=== PATIENT | male | born 1945 | race Caucasian/White ===

== ENCOUNTER 2022-01-19 06:04 | Emergency (ER) | payer MEDICARE, SELFPAY ==
[2022-01-19 06:31] VITALS: BP 126/74; PULSE 70; O2SAT 98
[2022-01-19 06:48] VITALS: BP 120/81; PULSE 74; RESP 16; TEMP 37.2; O2SAT 97; BMI 18.0
--- NOTE | 2022-01-19 07:29 | ED.MALEGU ---
HPI - Male Genitourinary General Chief complaint: Urogenital-Male Stated complaint: blood in urine for 4 days Time Seen by Provider: 01/19/22 07:05 Source: patient Mode of arrival: ambulatory Limitations: other (Baseline dementia) History of Present Illness HPI Narrative: 76-year-old male presents to the emergency department with 4 days of hematuria on arrival patient has no new complaints patient denies fevers chills cough shortness of breath denies nausea vomiting diarrhea. Apparently patient is at his baseline per the care home he comes from. MD Complaint: other Related Data Allergies Allergy/AdvReac Type Severity Reaction Status Date / Time No Known Allergies Allergy Verified 01/19/22 06:22 Review of Systems Review of Systems: Review of systems: General: Patient denies any fever chills recent illness or falls Musculoskeletal: Denies back pain or body aches or other injuries HEENT: denies headache, runny nose, ear pain Respiratory: denies shortness of breath, cough Cardiovascular: no chest pain or palpitations : Painless hematuria denies dysuria, frequency Abdomen: no nausea vomiting denies abdominal pain Extremities: no swelling, no pain Skin: no diaphoresis Yes all other systems are reviewed and are negative PMFSH Past Medical History Attestation statement: The following information was validated with the patient. Social History Social History Advance Directives: No Advance Directives Information Provided: No Physical Exam Vital Signs: Vital Signs: Last Vital Signs Temp 98.9 F 01/19/22 06:48 Pulse 74 01/19/22 06:48 Resp 16 01/19/22 06:48 BP 120/81 01/19/22 06:48 Pulse Ox 97 01/19/22 06:48 O2 Del Method 01/19/22 06:48 BMI result Body Mass Index 18.0 General: Well-appearing well-nourished in no signs of distress HEENT: Normocephalic atraumatic Neck: No signs of JVD, no masses no tenderness or lymphadenopathy Cardiovascular: Regular rate and rhythm Respiratory: Clear to auscultation bilaterally Abdomen: Soft nontender no masses rectal exam performed guiac negative clinical quality rn confirmed. Extremities: Normal pedal pulses no signs of edema Skin: Dry warm no rashes Back: No tenderness full ROM MDM - Male Genitourinary MDM Narrative Medical decision making narrative: Patient with painless hematuria I will send urinalysis likely have patient follow-up with urology. Lab Data Labs: Lab Results 01/19/22 Range/Units 10:09 Urine Color YELLOW Urine Appearance CLOUDY Urine pH 5.5 (5.0-8.0) Ur Specific [place] >= 1.030 H (1.005-1.025) Urine Protein 2+ H (NEG-TRACE) MG/DL Urine Glucose (UA) NEG (NEG) MG/DL Urine Ketones 40 (NEG) MG/DL Urine Blood 3+ H (NEG) Urine Nitrite NEG (NEG) Ur Leukocyte Esterase 2+ H (NEG) Urine RBC 76-150 H (0) /HPF Urine WBC 50-75 H (0-4) /HPF Ur Squamous Epith Cells NONE /LPF Urine Bacteria 1+ /LPF Discharge Plan Discharge Clinical Impression: Hematuria Patient Disposition: Home, Self-Care Instructions: Hematuria (ED) Additional Instructions: Please call to follow up for your hematuria. If you have any other concerns please return to the ED. Referrals: Benjamín Bhardwaj MD [Physician] -
--- NOTE | 2022-01-19 10:14 | PC.NURSE ---
pt's brother scarlet ([phone]) [place] [facility] [place], pt is aware. pt brother states that pt has had his ornelas cath in for 2 months, has an enlarged prostate and high psa. aware.
[2022-01-19 10:25] LABS: Appearance Urine CLOUDY; Color Urine YELLOW; Glucose Urine UA NEG (NEG); Leukocyte Esterase Urine 2+ (NEG); Nitrite Urine NEG (NEG); PH 5.5 (5.0-8.0); Specific Gravity - Urine >= 1.030 (1.005-1.025); UACC Culture Trigger YES; Urine Blood 3+ (NEG); Urine Ketones 40 MG/DL (NEG); Urine Protein 2+ MG/DL (NEG-TRACE)
[2022-01-19 10:31] LABS: Bacteria Urine 1+ /LPF; WBC Urine 50-75 /HPF (0-4)
[2022-01-19 10:45] VITALS: BP 130/75; PULSE 64; RESP 16; TEMP 37; O2SAT 99
--- NOTE | 2022-01-19 10:50 | PC.NURSE ---
patient a/o x3 . lungs celarv . skin pink warm and dry . heart rate regular at 65 beats per minute . skin pink warm and dry . abdomen soft . non tender . positive bowel sounds in all four quadrants . catheter patent , dark yellow urine with no evidence of hematuria noted by this RN . patient reports 0/10 pain . bed at lowest level . patient aware of plan of care .
--- NOTE | 2022-01-19 10:50 | PC.NURSE ---
PT'S COURT APPOINTED GUARDIAN CALLED ( MARILEE CUCA, ) AND SHE WAS UPDATED ON PT STATUS.
[2022-01-19] MEDS: cephALEXin 500 MG CAPSULE PO (10:57)
--- NOTE | 2022-01-19 13:31 | PC.NURSE ---
rn to rn report given to jarocho at [facility]. pt d/c via ambulance.
== END 2022-01-19 13:15 | disposition home or self-care (01) ==
PROVIDERS: Emergency Provider Student in an Organized Health Care Education/Training Program; PCP Family Medicine
DX: N30.01 Acute cystitis with hematuria (principal); B95.2 Enterococcus as the cause of diseases classified elsewhere; Z79.899 Other long term (current) drug therapy
CPT/HCPCS: 81001; 87086; 87088; 87186; 99283; 99284

== ENCOUNTER 2022-04-13 06:39 | Outpatient (REF) | payer SELFPAY ==
[2022-04-13 07:02] LABS: Hematocrit 34.8 % (42.0-52.0); Hemoglobin 11.4 g/dl (14.0-18.0); Mean Corpuscular HGB Conc 32.8 g/dl (31.0-36.0); Mean Corpuscular Hemoglobin 29.4 pg (27.0-33.0); Mean Corpuscular Volume 89.7 fL (80.0-98.0); Platelet Count 331 X10*3/uL (160-400); Red Blood Count 3.88 X10*6/uL (4.60-5.80); Red Cell Distribution Width 12.2 % (11.0-16.0); White Blood Count 8.6 X10*3/uL (4.8-10.8)
[2022-04-13 07:06] LABS: Alanine Aminotransferase 16 U/L (0-40); Albumin Level 3.7 g/dL (3.5-5.0); Alkaline Phosphatase 87 U/L (39-117); Anion Gap 17 (12-20); Aspartate Amino Transferase 11 U/L (5-37); Bilirubin Total 0.6 mg/dL (0.0-1.0); Blood Urea Nitrogen 19 mg/dL (9-16); Calcium 8.9 mg/dL (8.4-10.2); Carbon Dioxide 25 mmol/L (22-29); Chloride 104 mmol/L (96-108); Estimated Glomerular Filt Rate > 60; Glucose Random 96 mg/dL (60-115); Potassium 4.1 mmol/L (3.3-5.1); Sodium 142 mmol/L (135-145); Total Protein 6.3 g/dL (6.5-8.0)
== END 2022-04-13 06:40 | disposition home or self-care (01) ==
LOC: HO.MMNH3L 06:39
PROVIDERS: Visit Provider Family Medicine
DX: I48.91 Unspecified atrial fibrillation (principal); N40.1 Benign prostatic hyperplasia with lower urinary tract symptoms; K21.9 Gastro-esophageal reflux disease without esophagitis
CPT/HCPCS: 36415; 80053; 85027

== ENCOUNTER 2022-04-18 07:27 | Outpatient (REF) | payer MEDICARE, SELFPAY ==
[2022-04-18 08:05] LABS: Appearance Urine Cloudy; Color Urine Yellow; Glucose Urine UA Negative (Negative); Leukocyte Esterase Urine Large (3+) (Negative); Nitrite Urine Negative (Negative); Specific Gravity - Urine 1.015 (1.005-1.025); UMIC TRIGGER UA YES; Urine Blood Moderate (2+) (Negative); Urine Ketones 15 mg/dL (Negative); Urine Protein 100 (2+) mg/dL (Neg-Trace)
[2022-04-18 08:09] LABS: Bacteria Urine 1+ (None Seen); Hyaline Casts Urine 0-2 /LPF (0-2); RBC Urine >20 /HPF (0-2); Squamous Epithelial Cell Urine 0-2 /HPF (0-2); WBC Urine >50 /HPF (0-5)
== END 2022-04-18 07:28 | disposition home or self-care (01) ==
LOC: HO.LNP 07:27
PROVIDERS: Visit Provider Family Medicine
DX: I48.91 Unspecified atrial fibrillation (principal); N40.1 Benign prostatic hyperplasia with lower urinary tract symptoms; N39.0 Urinary tract infection, site not specified
CPT/HCPCS: 81001; 81003; 87086

== ENCOUNTER 2022-04-20 06:30 | Outpatient (REF) | payer MEDICARE, SELFPAY ==
[2022-04-20 06:51] LABS: Hematocrit 33.1 % (42.0-52.0); Hemoglobin 11.1 g/dl (14.0-18.0); Mean Corpuscular HGB Conc 33.5 g/dl (31.0-36.0); Mean Corpuscular Hemoglobin 29.4 pg (27.0-33.0); Mean Corpuscular Volume 87.6 fL (80.0-98.0); Mean Platelet Volume 10.3 fL (9.4-12.4); Platelet Count 388 X10*3/uL (160-400); Red Blood Count 3.78 X10*6/uL (4.60-5.80); Red Cell Distribution Width 12.3 % (11.0-16.0); White Blood Count 8.5 X10*3/uL (4.8-10.8)
[2022-04-20 07:20] LABS: Alanine Aminotransferase 9 U/L (0-40); Albumin Level 3.6 g/dL (3.5-5.0); Alkaline Phosphatase 71 U/L (39-117); Anion Gap 18 (12-20); Aspartate Amino Transferase 9 U/L (5-37); Bilirubin Total 0.6 mg/dL (0.0-1.0); Blood Urea Nitrogen 23 mg/dL (9-16); Carbon Dioxide 26 mmol/L (22-29); Chloride 100 mmol/L (96-108); Estimated Glomerular Filt Rate 59; Glucose Random 120 mg/dL (60-115); Potassium 4.1 mmol/L (3.3-5.1); Sodium 140 mmol/L (135-145); Total Protein 6.2 g/dL (6.5-8.0)
== END 2022-04-20 06:31 | disposition home or self-care (01) ==
LOC: HO.MMNH3L 06:30
PROVIDERS: Visit Provider Family Medicine
DX: I48.91 Unspecified atrial fibrillation (principal); N40.1 Benign prostatic hyperplasia with lower urinary tract symptoms; K21.9 Gastro-esophageal reflux disease without esophagitis
CPT/HCPCS: 36415; 80053; 85027; 87040

== ENCOUNTER 2022-04-27 06:56 | Outpatient (REF) | payer MEDICARE, SELFPAY ==
[2022-04-27 07:34] LABS: Hematocrit 34.9 % (42.0-52.0); Hemoglobin 11.2 g/dl (14.0-18.0); Mean Corpuscular HGB Conc 32.1 g/dl (31.0-36.0); Mean Corpuscular Hemoglobin 28.5 pg (27.0-33.0); Mean Corpuscular Volume 88.8 fL (80.0-98.0); Mean Platelet Volume 9.6 fL (9.4-12.4); Platelet Count 456 X10*3/uL (160-400); Red Blood Count 3.93 X10*6/uL (4.60-5.80); Red Cell Distribution Width 12.6 % (11.0-16.0)
[2022-04-27 07:50] LABS: Alanine Aminotransferase 9 U/L (0-40); Albumin Level 3.5 g/dL (3.5-5.0); Alkaline Phosphatase 72 U/L (39-117); Anion Gap 16 (12-20); Aspartate Amino Transferase 10 U/L (5-37); Bilirubin Total 0.3 mg/dL (0.0-1.0); Blood Urea Nitrogen 20 mg/dL (9-16); Calcium 9.1 mg/dL (8.4-10.2); Carbon Dioxide 26 mmol/L (22-29); Chloride 106 mmol/L (96-108); Estimated Glomerular Filt Rate 52; Glucose Random 91 mg/dL (60-115); Sodium 144 mmol/L (135-145); Total Protein 6.1 g/dL (6.5-8.0)
== END 2022-04-27 06:57 | disposition home or self-care (01) ==
LOC: HO.MMNH3L 06:56
PROVIDERS: Visit Provider Family Medicine
DX: I48.91 Unspecified atrial fibrillation (principal); N40.1 Benign prostatic hyperplasia with lower urinary tract symptoms; K21.9 Gastro-esophageal reflux disease without esophagitis
CPT/HCPCS: 36415; 80053; 85027

== ENCOUNTER 2022-05-04 06:22 | Outpatient (REF) | payer MEDICARE, SELFPAY ==
[2022-05-04 06:33] LABS: MANUAL DIFF FLAG NO
[2022-05-04 06:51] LABS: Basophils Absolute Auto 0.1 X10*3/uL (0.0-0.2); Eosinophils Absolute Auto 0.5 X10*3/uL (0.0-0.4); Eosinophils Percent Auto 6.6 % (0-4); Hematocrit 32.7 % (42.0-52.0); Hemoglobin 10.5 g/dl (14.0-18.0); Imm Gran Abs Auto 0.03 X10*3/uL (0.00-0.03); Imm Gran Pct Auto 0.4 % (0.0-0.4); Lymphocytes Absolute Auto 1.8 X10*3/uL (1.2-4.9); Lymphocytes Percent Auto 25.5 % (20-40); Mean Corpuscular HGB Conc 32.1 g/dl (31.0-36.0); Mean Corpuscular Hemoglobin 29.1 pg (27.0-33.0); Mean Corpuscular Volume 90.6 fL (80.0-98.0); Mean Platelet Volume 10.3 fL (9.4-12.4); Monocytes Absolute Auto 0.6 X10*3/uL (0.1-1.2); Monocytes Percent Auto 7.7 % (2-11); Neutrophils Absolute Auto 4.2 x10*3/uL (2.0-8.3); Neutrophils Percent Auto 58.8 % (45-73); Platelet Count 325 X10*3/uL (160-400); Red Blood Count 3.61 X10*6/uL (4.60-5.80); Red Cell Distribution Width 12.6 % (11.0-16.0); White Blood Count 7.2 X10*3/uL (4.8-10.8)
[2022-05-04 07:22] LABS: Alanine Aminotransferase 10 U/L (0-40); Albumin Level 3.2 g/dL (3.5-5.0); Alkaline Phosphatase 63 U/L (39-117); Anion Gap 15 (12-20); Aspartate Amino Transferase 10 U/L (5-37); Bilirubin Total 0.2 mg/dL (0.0-1.0); Blood Urea Nitrogen 22 mg/dL (9-16); Calcium 8.6 mg/dL (8.4-10.2); Carbon Dioxide 22 mmol/L (22-29); Chloride 109 mmol/L (96-108); Estimated Glomerular Filt Rate > 60; Glucose Random 85 mg/dL (60-115); Potassium 4.3 mmol/L (3.3-5.1); Sodium 142 mmol/L (135-145); Total Protein 5.6 g/dL (6.5-8.0)
== END 2022-05-04 06:23 | disposition home or self-care (01) ==
LOC: HO.MMNH3L 06:22
PROVIDERS: Visit Provider Family Medicine
DX: I48.91 Unspecified atrial fibrillation (principal); N40.1 Benign prostatic hyperplasia with lower urinary tract symptoms; K21.9 Gastro-esophageal reflux disease without esophagitis
CPT/HCPCS: 36415; 80053; 85025

== ENCOUNTER 2022-05-11 05:43 | Outpatient (REF) | payer MEDICARE, SELFPAY ==
[2022-05-11 05:48] LABS: MANUAL DIFF FLAG NO
[2022-05-11 06:24] LABS: Basophils Absolute Auto 0.1 X10*3/uL (0.0-0.2); Basophils Percent Auto 0.8 % (0-2); Eosinophils Absolute Auto 0.5 X10*3/uL (0.0-0.4); Eosinophils Percent Auto 6.5 % (0-4); Hematocrit 33.2 % (42.0-52.0); Hemoglobin 10.7 g/dl (14.0-18.0); Imm Gran Abs Auto 0.03 X10*3/uL (0.00-0.03); Imm Gran Pct Auto 0.4 % (0.0-0.4); Lymphocytes Percent Auto 26.7 % (20-40); Mean Corpuscular HGB Conc 32.2 g/dl (31.0-36.0); Mean Platelet Volume 10.1 fL (9.4-12.4); Monocytes Absolute Auto 0.6 X10*3/uL (0.1-1.2); Monocytes Percent Auto 7.7 % (2-11); Neutrophils Absolute Auto 4.4 x10*3/uL (2.0-8.3); Neutrophils Percent Auto 57.9 % (45-73); Platelet Count 280 X10*3/uL (160-400); Red Blood Count 3.69 X10*6/uL (4.60-5.80); White Blood Count 7.7 X10*3/uL (4.8-10.8)
[2022-05-11 06:48] LABS: Anion Gap 16 (12-20); Blood Urea Nitrogen 21 mg/dL (9-16); Calcium 8.7 mg/dL (8.4-10.2); Carbon Dioxide 25 mmol/L (22-29); Chloride 106 mmol/L (96-108); Estimated Glomerular Filt Rate 56; Glucose Random 86 mg/dL (60-115); Potassium 3.9 mmol/L (3.3-5.1); Sodium 143 mmol/L (135-145)
== END 2022-05-11 05:44 | disposition home or self-care (01) ==
LOC: HO.MMNH3L 05:43
PROVIDERS: Visit Provider Family Medicine
DX: I48.91 Unspecified atrial fibrillation (principal); N40.1 Benign prostatic hyperplasia with lower urinary tract symptoms; K21.9 Gastro-esophageal reflux disease without esophagitis
CPT/HCPCS: 36415; 80048; 85025

== ENCOUNTER 2022-05-18 06:31 | Outpatient (REF) | payer MEDICARE, SELFPAY ==
[2022-05-18 06:56] LABS: Hematocrit 33.2 % (42.0-52.0); Hemoglobin 10.5 g/dl (14.0-18.0); Mean Corpuscular HGB Conc 31.6 g/dl (31.0-36.0); Mean Corpuscular Hemoglobin 28.5 pg (27.0-33.0); Platelet Count 267 X10*3/uL (160-400); Red Blood Count 3.69 X10*6/uL (4.60-5.80); Red Cell Distribution Width 13.1 % (11.0-16.0); White Blood Count 6.5 X10*3/uL (4.8-10.8)
[2022-05-18 07:35] LABS: Alanine Aminotransferase 9 U/L (0-40); Albumin Level 3.4 g/dL (3.5-5.0); Alkaline Phosphatase 64 U/L (39-117); Anion Gap 15 (12-20); Aspartate Amino Transferase 9 U/L (5-37); Bilirubin Total 0.3 mg/dL (0.0-1.0); Blood Urea Nitrogen 19 mg/dL (9-16); Calcium 8.6 mg/dL (8.4-10.2); Carbon Dioxide 24 mmol/L (22-29); Chloride 107 mmol/L (96-108); Estimated Glomerular Filt Rate > 60; Glucose Random 82 mg/dL (60-115); Potassium 4.1 mmol/L (3.3-5.1); Sodium 142 mmol/L (135-145); Total Protein 5.7 g/dL (6.5-8.0)
== END 2022-05-18 06:32 | disposition home or self-care (01) ==
LOC: HO.MMNH3L 06:31
PROVIDERS: Visit Provider Family Medicine
DX: I48.91 Unspecified atrial fibrillation (principal); N40.1 Benign prostatic hyperplasia with lower urinary tract symptoms; K21.9 Gastro-esophageal reflux disease without esophagitis
CPT/HCPCS: 36415; 80053; 85027

== ENCOUNTER 2022-05-25 06:16 | Outpatient (REF) | payer MEDICARE, SELFPAY ==
[2022-05-25 06:28] LABS: Hematocrit 35.6 % (42.0-52.0); Hemoglobin 11.3 g/dl (14.0-18.0); Mean Corpuscular HGB Conc 31.7 g/dl (31.0-36.0); Mean Corpuscular Hemoglobin 28.4 pg (27.0-33.0); Mean Corpuscular Volume 89.4 fL (80.0-98.0); Mean Platelet Volume 9.7 fL (9.4-12.4); Platelet Count 309 X10*3/uL (160-400); Red Blood Count 3.98 X10*6/uL (4.60-5.80); Red Cell Distribution Width 13.2 % (11.0-16.0)
[2022-05-25 06:56] LABS: Alanine Aminotransferase 8 U/L (0-40); Albumin Level 3.5 g/dL (3.5-5.0); Alkaline Phosphatase 68 U/L (39-117); Anion Gap 12 (12-20); Aspartate Amino Transferase 8 U/L (5-37); Bilirubin Total 0.5 mg/dL (0.0-1.0); Blood Urea Nitrogen 22 mg/dL (9-16); Carbon Dioxide 25 mmol/L (22-29); Chloride 108 mmol/L (96-108); Estimated Glomerular Filt Rate > 60; Glucose Random 88 mg/dL (60-115); Potassium 4.3 mmol/L (3.3-5.1); Sodium 141 mmol/L (135-145); Total Protein 5.9 g/dL (6.5-8.0)
== END 2022-05-25 06:17 | disposition home or self-care (01) ==
LOC: HO.MMNH3L 06:16
PROVIDERS: Visit Provider Family Medicine
DX: I48.91 Unspecified atrial fibrillation (principal); N40.1 Benign prostatic hyperplasia with lower urinary tract symptoms; K21.9 Gastro-esophageal reflux disease without esophagitis
CPT/HCPCS: 36415; 80053; 85027

== ENCOUNTER 2022-06-01 07:04 | Outpatient (REF) | payer MEDICARE, SELFPAY ==
[2022-06-01 07:33] LABS: Hematocrit 35.1 % (42.0-52.0); Hemoglobin 11.4 g/dl (14.0-18.0); Mean Corpuscular HGB Conc 32.5 g/dl (31.0-36.0); Mean Corpuscular Hemoglobin 28.9 pg (27.0-33.0); Mean Corpuscular Volume 88.9 fL (80.0-98.0); Mean Platelet Volume 10.2 fL (9.4-12.4); Platelet Count 302 X10*3/uL (160-400); Red Blood Count 3.95 X10*6/uL (4.60-5.80); Red Cell Distribution Width 12.8 % (11.0-16.0); White Blood Count 6.2 X10*3/uL (4.8-10.8)
[2022-06-01 08:28] LABS: Alanine Aminotransferase 7 U/L (0-40); Albumin Level 3.6 g/dL (3.5-5.0); Alkaline Phosphatase 59 U/L (39-117); Anion Gap 12 (12-20); Aspartate Amino Transferase 8 U/L (5-37); Bilirubin Total 0.8 mg/dL (0.0-1.0); Blood Urea Nitrogen 13 mg/dL (9-16); Calcium 8.9 mg/dL (8.4-10.2); Carbon Dioxide 26 mmol/L (22-29); Chloride 104 mmol/L (96-108); Estimated Glomerular Filt Rate > 60; Glucose Random 89 mg/dL (60-115); Potassium 3.8 mmol/L (3.3-5.1); Sodium 138 mmol/L (135-145)
== END 2022-06-01 07:05 | disposition home or self-care (01) ==
LOC: HO.MMNH3L 07:04
PROVIDERS: Visit Provider Family Medicine
DX: I48.91 Unspecified atrial fibrillation (principal); N40.1 Benign prostatic hyperplasia with lower urinary tract symptoms; K21.9 Gastro-esophageal reflux disease without esophagitis
CPT/HCPCS: 36415; 80053; 85027

== ENCOUNTER 2022-06-08 07:26 | Outpatient (REF) | payer MEDICARE, SELFPAY ==
[2022-06-08 07:17] LABS: MANUAL DIFF FLAG NO
[2022-06-08 07:51] LABS: Basophils Absolute Auto 0.1 X10*3/uL (0.0-0.2); Basophils Percent Auto 0.7 % (0-2); Eosinophils Absolute Auto 0.3 X10*3/uL (0.0-0.4); Eosinophils Percent Auto 3.2 % (0-4); Hematocrit 34.6 % (42.0-52.0); Hemoglobin 11.1 g/dl (14.0-18.0); Imm Gran Abs Auto 0.02 X10*3/uL (0.00-0.03); Imm Gran Pct Auto 0.2 % (0.0-0.4); Lymphocytes Absolute Auto 1.8 X10*3/uL (1.2-4.9); Mean Corpuscular HGB Conc 32.1 g/dl (31.0-36.0); Mean Corpuscular Hemoglobin 29.1 pg (27.0-33.0); Mean Corpuscular Volume 90.6 fL (80.0-98.0); Mean Platelet Volume 10.5 fL (9.4-12.4); Monocytes Absolute Auto 0.6 X10*3/uL (0.1-1.2); Monocytes Percent Auto 7.3 % (2-11); Neutrophils Absolute Auto 5.6 x10*3/uL (2.0-8.3); Neutrophils Percent Auto 66.6 % (45-73); Platelet Count 298 X10*3/uL (160-400); Red Blood Count 3.82 X10*6/uL (4.60-5.80); Red Cell Distribution Width 13.3 % (11.0-16.0); White Blood Count 8.4 X10*3/uL (4.8-10.8)
[2022-06-08 08:20] LABS: Alanine Aminotransferase 8 U/L (0-40); Albumin Level 3.5 g/dL (3.5-5.0); Alkaline Phosphatase 65 U/L (39-117); Anion Gap 12 (12-20); Aspartate Amino Transferase 9 U/L (5-37); Bilirubin Total 0.5 mg/dL (0.0-1.0); Blood Urea Nitrogen 19 mg/dL (9-16); Calcium 8.5 mg/dL (8.4-10.2); Carbon Dioxide 25 mmol/L (22-29); Chloride 110 mmol/L (96-108); Estimated Glomerular Filt Rate > 60; Glucose Random 85 mg/dL (60-115); Potassium 4.1 mmol/L (3.3-5.1); Sodium 143 mmol/L (135-145); Total Protein 5.8 g/dL (6.5-8.0)
== END 2022-06-08 07:27 | disposition home or self-care (01) ==
LOC: HO.MMNH3L 07:26
PROVIDERS: Visit Provider Family Medicine
DX: I48.91 Unspecified atrial fibrillation (principal); N40.1 Benign prostatic hyperplasia with lower urinary tract symptoms; K21.9 Gastro-esophageal reflux disease without esophagitis
CPT/HCPCS: 36415; 80053; 85025

== ENCOUNTER 2022-06-15 07:56 | Outpatient (REF) | payer MEDICARE, SELFPAY ==
[2022-06-15 07:02] LABS: MANUAL DIFF FLAG NO
[2022-06-15 07:57] LABS: Basophils Absolute Auto 0.1 X10*3/uL (0.0-0.2); Basophils Percent Auto 0.8 % (0-2); Eosinophils Absolute Auto 0.3 X10*3/uL (0.0-0.4); Eosinophils Percent Auto 4.1 % (0-4); Hematocrit 34.7 % (42.0-52.0); Hemoglobin 11.1 g/dl (14.0-18.0); Imm Gran Abs Auto 0.02 X10*3/uL (0.00-0.03); Imm Gran Pct Auto 0.3 % (0.0-0.4); Mean Corpuscular Hemoglobin 28.8 pg (27.0-33.0); Mean Corpuscular Volume 89.9 fL (80.0-98.0); Monocytes Absolute Auto 0.5 X10*3/uL (0.1-1.2); Monocytes Percent Auto 8.3 % (2-11); Neutrophils Absolute Auto 3.7 x10*3/uL (2.0-8.3); Neutrophils Percent Auto 56.5 % (45-73); Platelet Count 298 X10*3/uL (160-400); Red Blood Count 3.86 X10*6/uL (4.60-5.80); Red Cell Distribution Width 13.2 % (11.0-16.0); White Blood Count 6.5 X10*3/uL (4.8-10.8)
[2022-06-15 08:24] LABS: Alanine Aminotransferase 12 U/L (0-40); Albumin Level 3.4 g/dL (3.5-5.0); Alkaline Phosphatase 65 U/L (39-117); Anion Gap 13 (12-20); Aspartate Amino Transferase 11 U/L (5-37); Bilirubin Total 0.5 mg/dL (0.0-1.0); Blood Urea Nitrogen 19 mg/dL (9-16); Calcium 8.6 mg/dL (8.4-10.2); Carbon Dioxide 24 mmol/L (22-29); Chloride 109 mmol/L (96-108); Estimated Glomerular Filt Rate > 60; Glucose Random 86 mg/dL (60-115); Potassium 4.4 mmol/L (3.3-5.1); Sodium 142 mmol/L (135-145); Total Protein 5.6 g/dL (6.5-8.0)
== END 2022-06-15 07:57 | disposition home or self-care (01) ==
LOC: HO.MMNH3L 07:56
PROVIDERS: Visit Provider Family Medicine
DX: I48.91 Unspecified atrial fibrillation (principal); N40.1 Benign prostatic hyperplasia with lower urinary tract symptoms; K21.9 Gastro-esophageal reflux disease without esophagitis
CPT/HCPCS: 36415; 80053; 85025

== ENCOUNTER 2022-06-26 06:00 | Outpatient (REF) | payer MEDICARE, SELFPAY ==
[2022-06-26 06:18] LABS: Appearance Urine Turbid; Color Urine Dark Yellow; Glucose Urine UA Negative (Negative); Leukocyte Esterase Urine Large (3+) (Negative); Nitrite Urine Negative (Negative); Specific Gravity - Urine 1.015 (1.005-1.025); UMIC TRIGGER UA YES; Urine Blood Large (3+) (Negative); Urine Ketones Negative (Negative); Urine Protein 100 (2+) mg/dL (Neg-Trace)
[2022-06-26 06:30] LABS: Bacteria Urine 4+ (None Seen); Hyaline Casts Urine 0-2 /LPF (0-2); RBC Urine >20 /HPF (0-2); Squamous Epithelial Cell Urine 0-2 /HPF (0-2); WBC Urine >50 /HPF (0-5)
== END 2022-06-26 06:01 | disposition home or self-care (01) ==
LOC: HO.MMNH3L 06:00
PROVIDERS: Visit Provider Family Medicine
DX: N40.1 Benign prostatic hyperplasia with lower urinary tract symptoms (principal); I10 Essential (primary) hypertension; R82.90 Unspecified abnormal findings in urine
CPT/HCPCS: 81001; 87086; 87088; 87186

== ENCOUNTER 2022-07-20 06:35 | Outpatient (REF) | payer MEDICARE, SELFPAY ==
[2022-07-20 06:23] LABS: MANUAL DIFF FLAG NO
[2022-07-20 07:01] LABS: Basophils Absolute Auto 0.1 X10*3/uL (0.0-0.2); Basophils Percent Auto 0.9 % (0-2); Eosinophils Absolute Auto 0.5 X10*3/uL (0.0-0.4); Eosinophils Percent Auto 7.1 % (0-4); Hematocrit 34.2 % (42.0-52.0); Hemoglobin 10.8 g/dl (14.0-18.0); Imm Gran Abs Auto 0.02 X10*3/uL (0.00-0.03); Imm Gran Pct Auto 0.3 % (0.0-0.4); Lymphocytes Absolute Auto 2.1 X10*3/uL (1.2-4.9); Lymphocytes Percent Auto 27.1 % (20-40); Mean Corpuscular HGB Conc 31.6 g/dl (31.0-36.0); Mean Corpuscular Hemoglobin 28.3 pg (27.0-33.0); Mean Corpuscular Volume 89.5 fL (80.0-98.0); Mean Platelet Volume 10.3 fL (9.4-12.4); Monocytes Absolute Auto 0.7 X10*3/uL (0.1-1.2); Monocytes Percent Auto 8.5 % (2-11); Neutrophils Absolute Auto 4.3 x10*3/uL (2.0-8.3); Neutrophils Percent Auto 56.1 % (45-73); Platelet Count 273 X10*3/uL (160-400); Red Blood Count 3.82 X10*6/uL (4.60-5.80); Red Cell Distribution Width 13.2 % (11.0-16.0); White Blood Count 7.7 X10*3/uL (4.8-10.8)
[2022-07-20 07:32] LABS: Alanine Aminotransferase 7 U/L (0-40); Albumin Level 3.4 g/dL (3.5-5.0); Alkaline Phosphatase 71 U/L (39-117); Anion Gap 11 (12-20); Aspartate Amino Transferase 10 U/L (5-37); Bilirubin Total 0.4 mg/dL (0.0-1.0); Blood Urea Nitrogen 22 mg/dL (9-16); Calcium 8.9 mg/dL (8.4-10.2); Carbon Dioxide 28 mmol/L (22-29); Chloride 109 mmol/L (96-108); Estimated Glomerular Filt Rate > 60; Glucose Random 86 mg/dL (60-115); Sodium 144 mmol/L (135-145); Total Protein 5.7 g/dL (6.5-8.0)
== END 2022-07-20 06:36 | disposition home or self-care (01) ==
LOC: HO.MMNH3L 06:35
PROVIDERS: Visit Provider Family Medicine
DX: I48.91 Unspecified atrial fibrillation (principal); N40.1 Benign prostatic hyperplasia with lower urinary tract symptoms; K21.9 Gastro-esophageal reflux disease without esophagitis
CPT/HCPCS: 36415; 80053; 85025

== ENCOUNTER 2022-07-27 06:42 | Outpatient (REF) | payer MEDICARE, SELFPAY ==
[2022-07-27 07:18] LABS: Basophils Absolute Auto 0.1 X10*3/uL (0.0-0.2); Basophils Percent Auto 0.4 % (0-2); Eosinophils Percent Auto 0.1 % (0-4); Hematocrit 33.4 % (42.0-52.0); Hemoglobin 10.9 g/dl (14.0-18.0); Imm Gran Abs Auto 0.22 X10*3/uL (0.00-0.03); Imm Gran Pct Auto 0.8 % (0.0-0.4); Lymphocytes Absolute Auto 1.5 X10*3/uL (1.2-4.9); Lymphocytes Percent Auto 5.7 % (20-40); MANUAL DIFF FLAG SCAN; Mean Corpuscular HGB Conc 32.6 g/dl (31.0-36.0); Mean Corpuscular Volume 88.8 fL (80.0-98.0); Mean Platelet Volume 10.5 fL (9.4-12.4); Monocytes Absolute Auto 1.8 X10*3/uL (0.1-1.2); Monocytes Percent Auto 6.8 % (2-11); Neutrophils Absolute Auto 22.8 x10*3/uL (2.0-8.3); Neutrophils Percent Auto 86.2 % (45-73); Platelet Count 269 X10*3/uL (160-400); Red Blood Count 3.76 X10*6/uL (4.60-5.80); Red Cell Distribution Width 13.2 % (11.0-16.0); SCAN SMEAR FLAG 1; White Blood Count 26.4 X10*3/uL (4.8-10.8)
[2022-07-27 07:37] LABS: Alanine Aminotransferase 11 U/L (0-40); Albumin Level 3.4 g/dL (3.5-5.0); Alkaline Phosphatase 72 U/L (39-117); Anion Gap 14 (12-20); Aspartate Amino Transferase 13 U/L (5-37); Bilirubin Total 0.6 mg/dL (0.0-1.0); Blood Urea Nitrogen 25 mg/dL (9-16); Calcium 8.9 mg/dL (8.4-10.2); Carbon Dioxide 24 mmol/L (22-29); Chloride 108 mmol/L (96-108); Estimated Glomerular Filt Rate 56; Glucose Random 95 mg/dL (60-115); Potassium 3.7 mmol/L (3.3-5.1); Sodium 142 mmol/L (135-145); Total Protein 5.6 g/dL (6.5-8.0)
[2022-07-27 08:06] LABS: SLIDE REVIEW VERIFIED
== END 2022-07-27 06:43 | disposition home or self-care (01) ==
LOC: HO.MMNH3L 06:42
PROVIDERS: Visit Provider Family Medicine
DX: I48.91 Unspecified atrial fibrillation (principal); N40.1 Benign prostatic hyperplasia with lower urinary tract symptoms; K21.9 Gastro-esophageal reflux disease without esophagitis
CPT/HCPCS: 36415; 80053; 85025

== ENCOUNTER 2022-08-02 22:43 | Emergency (ER) | payer MEDICARE, SELFPAY ==
--- NOTE | ~2022-08-02 | CT_ITS ---
EXAMINATION: CT HEAD WITHOUT CONTRAST CLINICAL INFORMATION: Repeat scan due to motion COMPARISON: 08/02/2022 TECHNIQUE: Contiguous axial imaging was performed from the skull base to vertex without intravenous administration of contrast. This CT examination was performed using dose optimization techniques as appropriate, variously including the following: *Automated exposure control *Adjustment of mA and/or kV according to patient size (this includes techniques or standardized protocols for targeted exams where dose is matched to indication/reason for exam; i.e. extremities or head) *Use of iterative reconstruction technique DLP: 704 mGy-cm FINDINGS: There is no evidence of acute intracranial hemorrhage or territorial infarction. No abnormal mass-effect or midline shift is seen. Murguia to white matter differentiation is well preserved. No extra-axial fluid collections are identified. The ventricles are normal in size. There is mild periventricular white matter hypoattenuation consistent with chronic small vessel ischemic disease. Moderate volume loss is noted. The osseous structures and soft tissues are normal. The mastoid air cells and visualized portions of the paranasal sinuses are well-aerated. CT/CT head/brain wo IV con IMPRESSION: No acute intracranial pathology. Chronic small vessel ischemic disease and volume loss.
--- NOTE | ~2022-08-02 | XR_ITS ---
EXAMINATION: XR HIP, RIGHT CLINICAL INFORMATION: Unwitnessed fall COMPARISON: None TECHNIQUE: Two views of the right hip. AP pelvis. FINDINGS: Alignment across the hips is anatomic with mild joint space narrowing and degenerative change. No acute fracture is seen. Sacroiliac joints and pubic symphysis appear intact. XR/XR hip RT w PEL1V IMPRESSION: No acute findings identified.
--- NOTE | ~2022-08-02 | CT_ITS ---
EXAMINATION: CT cervical spine wo IV con, CT head/brain wo IV con INDICATION INFORMATION: Reason for Exam unwitnessed fall COMPARISON: Trauma TECHNIQUE: Separate noncontrast CT examinations of the head and cervical spine were performed. Coronal and sagittal images were created for each examination at the technologist workstation. This CT examination was performed using dose optimization techniques as appropriate, variously including the following: *Automated exposure control *Adjustment of mA and/or kV according to patient size (this includes techniques or standardized protocols for targeted exams where dose is matched to indication/reason for exam; i.e. extremities or head) *Use of iterative reconstruction technique DLP: 960 mGy-cm FINDINGS: Head: Motion degraded exam which could obscure a subtle fracture or subtle bleed. The mastoid air cells and visualized portions of the paranasal sinuses are well aerated. There is no evidence of acute intracranial hemorrhage within the limitations of the exam or territorial infarction. No abnormal mass effect or midline shift is seen. Murguia to white matter differentiation is well preserved. No extra-axial fluid collections are identified. No hydrocephalus. Proportional prominence of the ventricles and sulcal spaces is consistent with mild volume loss. Patchy periventricular and deep white matter hypoattenuation is consistent with mild small vessel ischemic changes. Cervical spine: There is no evidence of acute cervical spine fracture. Age-indeterminate wedge compression deformity of the T3 and T4 vertebral bodies with approximately 25% and 50% height loss respectively, with the T4 compression deformity partially imaged. No prevertebral soft tissue swelling. Alignment is maintained. Multilevel loss of disc space height. No pre- or paravertebral soft tissue abnormality is identified. Visualized portions of the lung apices are unremarkable. The thyroid gland is unremarkable. CT/CT cervical spine wo IV con IMPRESSION: 1. Age-indeterminate wedge compression deformity of the T3 and T4 vertebral bodies with approximately 25% and 50% height loss respectively, with the T4 compression deformity partially imaged. No prevertebral soft tissue swelling. 2. Motion degraded CT head which could obscure a subtle fracture or subtle bleed. Repeat is recommended when patient is able to tolerate the exam.. No acute intracranial abnormality within limitations. 3. No cervical spine fracture or traumatic malalignment.
--- NOTE | ~2022-08-02 | XR_ITS ---
EXAMINATION: XR SHOULDER, RIGHT CLINICAL INFORMATION: Fall COMPARISON: None TECHNIQUE: Three views of the right shoulder. FINDINGS: Glenohumeral alignment is anatomic. There is a high riding humeral head suggesting chronic rotator cuff injury. No acute fracture is seen. Acromioclavicular joint is intact with mild degenerative change. XR/XR shoulder RT min 2V IMPRESSION: No acute findings identified. Chronic appearing changes as noted above.
--- NOTE | ~2022-08-02 | XR_ITS ---
EXAMINATION: XR CHEST CLINICAL INFORMATION: Fall COMPARISON: None TECHNIQUE: Frontal view of the chest was obtained. FINDINGS: The lungs are clear with no focal consolidation. No evidence of pneumothorax, pulmonary edema, or pleural effusions. Cardiac size is within normal limits. Calcification is present at the aortic arch. No acute osseous findings are seen. XR/XR chest 1V IMPRESSION: No acute cardiopulmonary findings.
[2022-08-02 22:51] VITALS: BP 138/80; PULSE 97; RESP 15; TEMP 36.6; O2SAT 97
--- NOTE | 2022-08-02 22:57 | ECG_ITS ---
Test Reason : FALL Blood Pressure : / mmHG Vent. Rate : 085 BPM Atrial Rate : 085 BPM P-R Int : 152 ms QRS Dur : 092 ms QT Int : 362 ms P-R-T Axes : 042 -42 066 degrees QTc Int : 430 ms Sinus rhythm with Premature atrial complexes Left axis deviation Abnormal ECG No previous ECGs available Referred By: Delicia Paredes Electronically Signed By:Ezio Rudd
--- NOTE | 2022-08-02 22:59 | ED_ITS ---
HPI - General Adult General Chief complaint: Fall Stated complaint: Fall Time Seen by Provider: 08/02/22 22:50 Source: EMS Mode of arrival: EMS Limitations: other (Dementia) History of Present Illness HPI narrative: Patient comes to the emergency room from [facility]. Earlier today, patient was found on the floor trying to get up. Patient had unwitnessed fall. Patient is unable to give any history due to his history of dementia. It is unknown how long the patient had been on the floor. According to the staff, patient complained of right hip and right shoulder pain. In the emergency room, he has no complaints. Patient is known to be on Eliquis for atrial fibrillation. 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 Oriented X1. No acute distress. Cachectic Eyes: Pupils equal, round and reactive to light. ENT: Very dry oral mucosa, cracked lips Neck: Normal inspection. Neck supple. No lymph nodes noted. No crepitus CVS: Normal heart rate and rhythm. Pulses normal. Normal S1 and S2 Respiratory: No respiratory distress. Breath sounds normal. No Wheezing. No rales Abdomen: Soft and nontender. No rigidity. No distention. Skin: Skin warm and dry. Normal skin color. Normal skin turgor. Extremities: No lower extremity edema. No Lacerations. No Rash Neuro: Oriented X 1. No motor deficit. No sensory deficit. Moving all extremities. No slurred speech. CN 2 through 12 grossly intact Psych: calm, cooperative, normal affect Course Course Course Narrative: -patient has dementia, altered at baseline. Patient at this time is alert and oriented x1, very talkative -of patient's labs and imaging pending. At this time, patient is receiving IV fluids, on physical exam patient looks very dry -due to motion artifact, the head CT was not clear. We will medicate the patient with 1 mg of Ativan and repeat the head CT. At this time, intracranial bleed is not suspected. -patient was given 1 mg of ceftriaxone for UTI. -patient was given IV Ativan. The repeat head CT does not show any acute abnormalities or bleed -patient ready to return to his senior care facility Medications Administered Discontinued Medications Generic Name Dose Route Start Last Admin Trade Name Buddyq PRN Reason Stop Dose Admin Sodium Chloride 1,000 mls @ 999 mls/hr 08/02/22 22:56 08/03/22 00:25 Ns IVCONT 08/02/22 23:56 Infused .Q1H1M ONE Infusion Ceftriaxone Sodium 1 gm/ 50 mls @ 100 mls/hr 08/03/22 00:58 08/03/22 02:33 Sodium Chloride IV 08/03/22 01:27 Infused ONCE ONE Infusion Lorazepam 1 mg 08/03/22 02:18 08/03/22 02:54 Lorazepam 2 Mg/Ml Vial IVPUSH 08/03/22 02:19 1 mg ONCE ONE Administration Lorazepam 1 mg 08/03/22 03:32 08/03/22 03:35 Lorazepam 2 Mg/Ml Vial IVPUSH 08/03/22 03:33 1 mg ONCE ONE Administration Medical Decision Making Medical Decision Making MDM Narrative: -admission was considered given the patient's white blood cell count and history of falls. However, patient has good care at his senior care facility, where they are able to treat the patient's urinary tract infection. Patient was given the 1st dose IV in the emergency room. The rest will be p.o., prescription was printed Differential Diagnosis Differential Diagnoses: The differential diagnosis associated with the presentation includes (UTI, mechanical fall) Lab Data MDM Lab Attestation statement: I reviewed the patient's lab results. 08/02/22 23:36 08/02/22 23:36 Labs: Lab Results 08/02/22 08/02/22 08/02/22 Range/Units 23:36 23:36 23:36 WBC 16.9 H (4.8-10.8) X10*3/uL RBC 3.96 L (4.60-5.80) X10*6/uL Hgb 11.2 L (14.0-18.0) g/dl Hct 34.2 L (42.0-52.0) % MCV 86.4 (80.0-98.0) fL MCH 28.3 (27.0-33.0) pg MCHC 32.7 (31.0-36.0) g/dl RDW 13.2 (11.0-16.0) % Plt Count 380 D (160-400) X10*3/uL MPV 9.7 (9.4-12.4) fL Immature Gran % (Auto) 0.8 H (0.0-0.4) % Neut % (Auto) 85.7 H (45-73) % Lymph % (Auto) 5.6 L (20-40) % [place] % (Auto) 7.7 (2-11) % Eos % (Auto) 0.0 (0-4) % Baso % (Auto) 0.2 (0-2) % Lymph # (Auto) 1.0 L (1.2-4.9) X10*3/uL [place] # (Auto) 1.3 H (0.1-1.2) X10*3/uL Eos # (Auto) 0.0 (0.0-0.4) X10*3/uL Baso # (Auto) 0.0 (0.0-0.2) X10*3/uL Abs Immat Gran (auto) 0.14 H (0.00-0.03) X10*3/uL Absolute Neuts (auto) 14.4 H (2.0-8.3) x10*3/uL Absolute Nucleated RBC 0.000 (0.0-0.012) X10*3/uL Nucleated RBC % (auto) 0.0 (0.0-0.2) /100WBC Sodium 137 (135-145) mmol/L Potassium 4.1 (3.3-5.1) mmol/L Chloride 100 (96-108) mmol/L Carbon Dioxide 27 (22-29) mmol/L Anion Gap 14 (12-20) BUN 19 H (9-16) mg/dL Creatinine 1.10 (0.5-1.4) mg/dL Estim Creat Clear Calc TNP Estimated GFR > 60 Random Glucose 130 H (60-115) mg/dL Lactic Acid 1.0 (0.5-2.0) mmol/L Calcium 8.9 (8.4-10.2) mg/dL Magnesium 2.0 (1.6-2.6) mg/dL Total Bilirubin 1.0 (0.0-1.0) mg/dL Direct Bilirubin 0.4 (0.0-0.5) mg/dL AST 15 (5-37) U/L ALT 21 (0-40) U/L Alkaline Phosphatase 101 (39-117) U/L Total Creatine Kinase 181 H (38-174) U/L Troponin I High Sens (<3.5-35.0) ng/L Total Protein 6.6 (6.5-8.0) g/dL Albumin 3.5 (3.5-5.0) g/dL Urine Color Urine Appearance Urine pH (5.0-9.0) Ur Specific [place] (1.005-1.025) Urine Protein (Neg-Trace) mg/dL Urine Glucose (UA) (Negative) mg/dL Urine Ketones (Negative) mg/dL Urine Blood (Negative) Urine Nitrite (Negative) Ur Leukocyte Esterase (Negative) Urine RBC (0-2) /HPF Urine WBC (0-5) /HPF Ur Squamous Epith Cells (0-2) /HPF Urine Bacteria (None Seen) Hyaline Casts (0-2) /LPF Granular Casts COVID-19 (CROW) (Negative) COVID-19 Clin Com Influenza Type A (MEGA) (Negative) Influenza Type B (MEGA) (Negative) Influenza A & B Note 08/02/22 08/02/22 08/02/22 Range/Units 23:36 23:39 23:41 WBC (4.8-10.8) X10*3/uL RBC (4.60-5.80) X10*6/uL Hgb (14.0-18.0) g/dl Hct (42.0-52.0) % MCV (80.0-98.0) fL MCH (27.0-33.0) pg MCHC (31.0-36.0) g/dl RDW (11.0-16.0) % Plt Count (160-400) X10*3/uL MPV (9.4-12.4) fL Immature Gran % (Auto) (0.0-0.4) % Neut % (Auto) (45-73) % Lymph % (Auto) (20-40) % [place] % (Auto) (2-11) % Eos % (Auto) (0-4) % Baso % (Auto) (0-2) % Lymph # (Auto) (1.2-4.9) X10*3/uL [place] # (Auto) (0.1-1.2) X10*3/uL Eos # (Auto) (0.0-0.4) X10*3/uL Baso # (Auto) (0.0-0.2) X10*3/uL Abs Immat Gran (auto) (0.00-0.03) X10*3/uL Absolute Neuts (auto) (2.0-8.3) x10*3/uL Absolute Nucleated RBC (0.0-0.012) X10*3/uL Nucleated RBC % (auto) (0.0-0.2) /100WBC Sodium (135-145) mmol/L Potassium (3.3-5.1) mmol/L Chloride (96-108) mmol/L Carbon Dioxide (22-29) mmol/L Anion Gap (12-20) BUN (9-16) mg/dL Creatinine (0.5-1.4) mg/dL Estim Creat Clear Calc Estimated GFR Random Glucose (60-115) mg/dL Lactic Acid (0.5-2.0) mmol/L Calcium (8.4-10.2) mg/dL Magnesium (1.6-2.6) mg/dL Total Bilirubin (0.0-1.0) mg/dL Direct Bilirubin (0.0-0.5) mg/dL AST (5-37) U/L ALT (0-40) U/L Alkaline Phosphatase (39-117) U/L Total Creatine Kinase (38-174) U/L Troponin I High Sens 4.4 (<3.5-35.0) ng/L Total Protein (6.5-8.0) g/dL Albumin (3.5-5.0) g/dL Urine Color Dark Yellow Urine Appearance Cloudy Urine pH 6.0 (5.0-9.0) Ur Specific [place] 1.020 (1.005-1.025) Urine Protein 100 (2+) H (Neg-Trace) mg/dL Urine Glucose (UA) Negative (Negative) mg/dL Urine Ketones 15 (Negative) mg/dL Urine Blood Moderate (2+) H (Negative) Urine Nitrite Positive H (Negative) Ur Leukocyte Esterase Large (3+) H (Negative) Urine RBC 6-10 H (0-2) /HPF Urine WBC >50 H (0-5) /HPF Ur Squamous Epith Cells 0-2 (0-2) /HPF Urine Bacteria 2+ (None Seen) Hyaline Casts 3-5 (0-2) /LPF Granular Casts Present COVID-19 (CROW) Negative (Negative) COVID-19 Clin Com See Note Influenza Type A (MEGA) (Negative) Influenza Type B (MEGA) (Negative) Influenza A & B Note 08/02/22 Range/Units 23:41 WBC (4.8-10.8) X10*3/uL RBC (4.60-5.80) X10*6/uL Hgb (14.0-18.0) g/dl Hct (42.0-52.0) % MCV (80.0-98.0) fL MCH (27.0-33.0) pg MCHC (31.0-36.0) g/dl RDW (11.0-16.0) % Plt Count (160-400) X10*3/uL MPV (9.4-12.4) fL Immature Gran % (Auto) (0.0-0.4) % Neut % (Auto) (45-73) % Lymph % (Auto) (20-40) % [place] % (Auto) (2-11) % Eos % (Auto) (0-4) % Baso % (Auto) (0-2) % Lymph # (Auto) (1.2-4.9) X10*3/uL [place] # (Auto) (0.1-1.2) X10*3/uL Eos # (Auto) (0.0-0.4) X10*3/uL Baso # (Auto) (0.0-0.2) X10*3/uL Abs Immat Gran (auto) (0.00-0.03) X10*3/uL Absolute Neuts (auto) (2.0-8.3) x10*3/uL Absolute Nucleated RBC (0.0-0.012) X10*3/uL Nucleated RBC % (auto) (0.0-0.2) /100WBC Sodium (135-145) mmol/L Potassium (3.3-5.1) mmol/L Chloride (96-108) mmol/L Carbon Dioxide (22-29) mmol/L Anion Gap (12-20) BUN (9-16) mg/dL Creatinine (0.5-1.4) mg/dL Estim Creat Clear Calc Estimated GFR Random Glucose (60-115) mg/dL Lactic Acid (0.5-2.0) mmol/L Calcium (8.4-10.2) mg/dL Magnesium (1.6-2.6) mg/dL Total Bilirubin (0.0-1.0) mg/dL Direct Bilirubin (0.0-0.5) mg/dL AST (5-37) U/L ALT (0-40) U/L Alkaline Phosphatase (39-117) U/L Total Creatine Kinase (38-174) U/L Troponin I High Sens (<3.5-35.0) ng/L Total Protein (6.5-8.0) g/dL Albumin (3.5-5.0) g/dL Urine Color Urine Appearance Urine pH (5.0-9.0) Ur Specific [place] (1.005-1.025) Urine Protein (Neg-Trace) mg/dL Urine Glucose (UA) (Negative) mg/dL Urine Ketones (Negative) mg/dL Urine Blood (Negative) Urine Nitrite (Negative) Ur Leukocyte Esterase (Negative) Urine RBC (0-2) /HPF Urine WBC (0-5) /HPF Ur Squamous Epith Cells (0-2) /HPF Urine Bacteria (None Seen) Hyaline Casts (0-2) /LPF Granular Casts COVID-19 (CROW) (Negative) COVID-19 Clin Com Influenza Type A (MEGA) Negative (Negative) Influenza Type B (MEGA) Negative (Negative) Influenza A & B Note See Note Independent Interpretation I performed an independent interpretation of an: CT Scan Interpretation: . For interpretation of head CT: No intracranial bleed Radiology Impression Discussion of test interpretation with radiology: I have reviewed the ra diologist's reading. Radiologist Impression: FINDINGS: There is no evidence of acute intracranial hemorrhage or territorial infarction. No abnormal mass-effect or midline shift is seen. Murguia to white matter differentiation is well preserved. No extra-axial fluid collections are identified. The ventricles are normal in size. There is mild periventricular white matter hypoattenuation consistent with chronic small vessel ischemic disease. Moderate volume loss is noted. The osseous structures and soft tissues are normal. The mastoid air cells and visualized portions of the paranasal sinuses are well-aerated. ? CT/CT head/brain wo IV con IMPRESSION: No acute intracranial pathology. Chronic small vessel ischemic disease and volume loss. Discharge Plan Discharge Clinical Impression: Acute UTI, Fall Patient Disposition: Home, Self-Care Instructions: Fall Prevention (ED), Urinary Tract Infection in Older Adults (ED) Additional Instructions: Please follow-up with your primary care physician tomorrow. If you have any worsening or new symptoms, please return to the emergency room or call 911 Prescriptions: New cefuroxime axetil 250 mg tablet 250 mg PO BID Qty: 14 0RF No Action cephalexin 500 mg capsule 500 mg PO QID Qty: 40 0RF
[2022-08-02 23:24] VITALS: BP 125/80; PULSE 82; RESP 23; TEMP 36.8; O2SAT 97
[2022-08-02] MEDS: 0.9 % Sodium Chloride 1,000 ML 999 ML IVCONT (23:39)
[2022-08-02 23:44] LABS: MANUAL DIFF FLAG NO
[2022-08-02 23:47] LABS: Basophils Percent Auto 0.2 % (0-2); Hematocrit 34.2 % (42.0-52.0); Hemoglobin 11.2 g/dl (14.0-18.0); Imm Gran Abs Auto 0.14 X10*3/uL (0.00-0.03); Imm Gran Pct Auto 0.8 % (0.0-0.4); Lymphocytes Percent Auto 5.6 % (20-40); Mean Corpuscular HGB Conc 32.7 g/dl (31.0-36.0); Mean Corpuscular Hemoglobin 28.3 pg (27.0-33.0); Mean Corpuscular Volume 86.4 fL (80.0-98.0); Mean Platelet Volume 9.7 fL (9.4-12.4); Monocytes Absolute Auto 1.3 X10*3/uL (0.1-1.2); Monocytes Percent Auto 7.7 % (2-11); Neutrophils Absolute Auto 14.4 x10*3/uL (2.0-8.3); Neutrophils Percent Auto 85.7 % (45-73); Platelet Count 380 X10*3/uL (160-400); Red Blood Count 3.96 X10*6/uL (4.60-5.80); Red Cell Distribution Width 13.2 % (11.0-16.0); White Blood Count 16.9 X10*3/uL (4.8-10.8)
[2022-08-02 23:50] LABS: Appearance Urine Cloudy; Color Urine Dark Yellow; Glucose Urine UA Negative (Negative); Leukocyte Esterase Urine Large (3+) (Negative); Nitrite Urine Positive (Negative); UMIC TRIGGER UACC YES; Urine Blood Moderate (2+) (Negative); Urine Ketones 15 mg/dL (Negative); Urine Protein 100 (2+) mg/dL (Neg-Trace)
[2022-08-03] LABS: Alanine Aminotransferase 21 U/L (0-40); Albumin Level 3.5 g/dL (3.5-5.0); Alkaline Phosphatase 101 U/L (39-117); Anion Gap 14 (12-20); Aspartate Amino Transferase 15 U/L (5-37); Bilirubin Direct 0.4 mg/dL (0.0-0.5); Blood Urea Nitrogen 19 mg/dL (9-16); Calcium 8.9 mg/dL (8.4-10.2); Carbon Dioxide 27 mmol/L (22-29); Chloride 100 mmol/L (96-108); Estimated Glomerular Filt Rate > 60; Glucose Random 130 mg/dL (60-115); Potassium 4.1 mmol/L (3.3-5.1); Sodium 137 mmol/L (135-145); Total Protein 6.6 g/dL (6.5-8.0)
[2022-08-03 00:04] LABS: Troponin-I High Sensitivity 4.4 ng/L (<3.5-35.0)
[2022-08-03 00:07] LABS: Bacteria Urine 2+ (None Seen); Granular Casts Urine Present; Squamous Epithelial Cell Urine 0-2 /HPF (0-2); UACC Culture Trigger YES; WBC Urine >50 /HPF (0-5)
[2022-08-03 00:29] LABS: COVID-19 Test Negative (Negative); IDNOW Serial# 16C4AD1C; IDNOW Serial# BCCEAD1C; Influenza A Negative (Negative); Influenza B2 Negative (Negative)
[2022-08-03 01:13] VITALS: BMI 17.4
[2022-08-03 01:15] VITALS: BP 116/70; PULSE 65; O2SAT 98
[2022-08-03] MEDS: cefTRIAXone sodium 1 GM in 0.9 % Sodium Chloride 50 ML IV (01:54)
--- NOTE | 2022-08-03 02:19 | PC.NURSE ---
R shoulder/hip pain unknown LOC/head strike on bloodthinners, pain 04/13 patient has dementia C-Collar on arrival has a ornelas in place from SN[facility] ([facility]) no MOLST form/ full code
--- NOTE | 2022-08-03 02:28 | PC.NURSE ---
at baseline patient is oriented only to self
[2022-08-03] MEDS: LORazepam 2 MG/ML VIAL 1 MG IVPUSH ×2 (02:54→03:35)
[2022-08-03 04:00] VITALS: BP 126/81; PULSE 94; RESP 18; TEMP 36.6; O2SAT 97
--- NOTE | 2022-08-03 05:34 | MHC.EDTECH ---
Chris called at 0532 for a bls transfer back to [facility],Spoke with Donna gave an Eta within 30mins,Charly aware
--- NOTE | 2022-08-03 05:43 | PC.NURSE ---
Report given to XIOMARA Valente ([facility])
--- NOTE | 2022-08-03 06:48 | PC.NURSE ---
d/c instructions given/explained, transported via [facility] to [facility]; pt oriented at baseline to self, no apparent distress
== END 2022-08-03 06:20 | disposition home or self-care (01) ==
PROVIDERS: Emergency Provider Emergency Medicine; PCP Family Medicine
DX: S79.911A Unspecified injury of right hip, initial encounter (principal); S49.91XA Unspecified injury of right shoulder and upper arm, initial encounter; I48.91 Unspecified atrial fibrillation; W01.0XXA Fall on same level from slipping, tripping and stumbling without subsequent striking against object, initial encounter; Y93.9 Activity, unspecified; Y92.9 Unspecified place or not applicable; Y99.9 Unspecified external cause status; Z20.822 Contact with and (suspected) exposure to COVID-19; Z20.828 Contact with and (suspected) exposure to other viral communicable diseases; Z79.01 Long term (current) use of anticoagulants; Z79.899 Other long term (current) drug therapy
CPT/HCPCS: 70450; 71045; 72125; 73030; 73502; 80048; 80076; 81001; 82550; 83605; 83735; 84484; 85025; 87040; 87086; 87205; 87502; 87635; 93005; J0696; J2060

== ENCOUNTER 2022-08-03 | Outpatient (REF) | payer MEDICARE, SELFPAY | END 2022-08-03 00:01 | LOC: HO.MMNH3L | PROVIDERS: Visit Provider Family Medicine | DX: I48.91 Unspecified atrial fibrillation (principal); N40.1 Benign prostatic hyperplasia with lower urinary tract symptoms; K21.9 Gastro-esophageal reflux disease without esophagitis | CPT/HCPCS: 87086; 87088; 87186 ==

== ENCOUNTER 2022-08-03 19:45 | Inpatient (IN) | payer MEDICARE, MEDICAID, SELFPAY ==
[2022-08-03 19:54] VITALS: BP 125/74; BP 130/77; PULSE 88; PULSE 90; RESP 19; TEMP 37.7; O2SAT 97; BMI 18.5
[2022-08-03 20:10] VITALS: BP 126/82; PULSE 81; RESP 17; TEMP 37.6; O2SAT 98
--- NOTE | 2022-08-03 20:17 | ED_ITS ---
HPI - General Adult General Chief complaint: General Medical Stated complaint: abnormal labs Time Seen by Provider: 08/03/22 19:58 Source: EMS and RN notes reviewed Mode of arrival: EMS Limitations: altered mental status History of Present Illness HPI narrative: Patient is 76 years old from [facility] with history of atrial fibrillation on Eliquis, hypertension, dementia, psychotic disturbances , chronic Moreau catheter was seen here yesterday after unwitnessed fall workup was negative except for UTI patient started on Ceftin patient was called back to the ER as 2/2 blood culture grew Gram-positive cocci in clusters. 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 Oriented X2 No acute distress. Cachectic thin built Eyes: No pallor or icterus ENT: Pharynx normal. Oral Mucosa moist Neck: Normal inspection. Neck supple. CVS: Normal heart rate and rhythm. Pulses normal. Respiratory: No respiratory distress. Equal air entry bilateral, no wheezing/rales/rhonchi Abdomen: Soft and nontender. Bowel sounds are present, no mass palpable, no CVA tenderness, indwelling Moreau catheter Skin: Skin warm and dry. Normal skin color. Normal skin turgor. Extremities: No lower extremity edema. No calf tenderness Neuro: Oriented X 2. No motor deficit. Medications Administered Discontinued Medications Generic Name Dose Route Start Last Admin Trade Name Freq PRN Reason Stop Dose Admin Ceftriaxone Sodium 1 gm/ 50 mls @ 100 mls/hr 08/03/22 20:07 08/03/22 21:14 Sodium Chloride IV 08/03/22 20:36 Infused ONCE ONE Infusion Vancomycin HCl 1,250 mg/ 250 mls @ 166.667 mls/hr 08/03/22 20:15 08/03/22 21:14 Sodium Chloride IV 08/03/22 21:44 166.67 mls/hr ONCE ONE Administration Sodium Chloride 1,500 mls @ 1,500 mls/hr 08/03/22 20:15 08/03/22 20:30 Ns IV 08/03/22 21:14 1,500 mls/hr .Q1H STA Administration Medical Decision Making Medical Decision Making [facility] Narrative: Patient has Gram-positive cocci clusters in the blood will repeat the blood cultures lactic acid will give iv vancomycin pending final culture plan to admit Consult Healthcare Provider Management of the patient was discussed with: Hospitalist Lab Data [facility] Lab Attestation statement: I reviewed the patient's lab results. 08/03/22 20:24 08/03/22 20:24 Labs: Lab Results 08/03/22 08/03/22 08/03/22 Range/Units 20:24 20:24 20:24 WBC 14.5 H (4.8-10.8) X10*3/uL RBC 3.83 L (4.60-5.80) X10*6/uL Hgb 10.9 L (14.0-18.0) g/dl Hct 33.6 L (42.0-52.0) % MCV 87.7 (80.0-98.0) fL MCH 28.5 (27.0-33.0) pg MCHC 32.4 (31.0-36.0) g/dl RDW 13.3 (11.0-16.0) % Plt Count 445 H (160-400) X10*3/uL MPV 9.5 (9.4-12.4) fL Immature Gran % (Auto) 0.9 H (0.0-0.4) % Neut % (Auto) 73.9 H (45-73) % Lymph % (Auto) 14.7 L (20-40) % [place] % (Auto) 10.2 (2-11) % Eos % (Auto) 0.1 (0-4) % Baso % (Auto) 0.2 (0-2) % Lymph # (Auto) 2.1 (1.2-4.9) X10*3/uL [place] # (Auto) 1.5 H (0.1-1.2) X10*3/uL Eos # (Auto) 0.0 (0.0-0.4) X10*3/uL Baso # (Auto) 0.0 (0.0-0.2) X10*3/uL Abs Immat Gran (auto) 0.13 H (0.00-0.03) X10*3/uL Absolute Neuts (auto) 10.7 H (2.0-8.3) x10*3/uL Absolute Nucleated RBC 0.000 (0.0-0.012) X10*3/uL Nucleated RBC % (auto) 0.0 (0.0-0.2) /100WBC Sodium 141 (135-145) mmol/L Potassium 4.0 (3.3-5.1) mmol/L Chloride 102 (96-108) mmol/L Carbon Dioxide 25 (22-29) mmol/L Anion Gap 18 (12-20) BUN 17 H (9-16) mg/dL Creatinine 1.06 (0.5-1.4) mg/dL Estim Creat Clear Calc 41.0 Estimated GFR > 60 Random Glucose 102 (60-115) mg/dL Lactic Acid 0.8 (0.5-2.0) mmol/L Calcium 8.9 (8.4-10.2) mg/dL Discharge Plan Discharge Clinical Impression: Acute UTI, Gram-positive bacteremia Patient Disposition: Admitted As Inpatient
[2022-08-03] MEDS: 0.9 % Sodium Chloride 1,500 ML 1500 ML IV (20:30)
[2022-08-03] MEDS: cefTRIAXone sodium 1 GM in 0.9 % Sodium Chloride 50 ML IV (20:30)
[2022-08-03 20:32] LABS: MANUAL DIFF FLAG NO
[2022-08-03 20:41] LABS: Basophils Percent Auto 0.2 % (0-2); Eosinophils Percent Auto 0.1 % (0-4); Hematocrit 33.6 % (42.0-52.0); Hemoglobin 10.9 g/dl (14.0-18.0); Imm Gran Abs Auto 0.13 X10*3/uL (0.00-0.03); Imm Gran Pct Auto 0.9 % (0.0-0.4); Lymphocytes Absolute Auto 2.1 X10*3/uL (1.2-4.9); Lymphocytes Percent Auto 14.7 % (20-40); Mean Corpuscular HGB Conc 32.4 g/dl (31.0-36.0); Mean Corpuscular Hemoglobin 28.5 pg (27.0-33.0); Mean Corpuscular Volume 87.7 fL (80.0-98.0); Mean Platelet Volume 9.5 fL (9.4-12.4); Monocytes Absolute Auto 1.5 X10*3/uL (0.1-1.2); Monocytes Percent Auto 10.2 % (2-11); Neutrophils Absolute Auto 10.7 x10*3/uL (2.0-8.3); Neutrophils Percent Auto 73.9 % (45-73); Platelet Count 445 X10*3/uL (160-400); Red Blood Count 3.83 X10*6/uL (4.60-5.80); Red Cell Distribution Width 13.3 % (11.0-16.0); White Blood Count 14.5 X10*3/uL (4.8-10.8)
[2022-08-03 20:49] LABS: Lactic Acid 0.8 mmol/L (0.5-2.0)
[2022-08-03 20:52] LABS: Anion Gap 18 (12-20); Blood Urea Nitrogen 17 mg/dL (9-16); Calcium 8.9 mg/dL (8.4-10.2); Carbon Dioxide 25 mmol/L (22-29); Chloride 102 mmol/L (96-108); Estimated Glomerular Filt Rate > 60; Glucose Random 102 mg/dL (60-115); Sodium 141 mmol/L (135-145)
[2022-08-03] MEDS: vancomycin HCL 1,250 MG in 0.9 % Sodium Chloride 250 ML 166.67 MG IV (21:14)
[2022-08-03 21:42] VITALS: BP 141/84; PULSE 99; RESP 15; TEMP 36.3; O2SAT 95
--- NOTE | 2022-08-03 22:17 | P.HPHOSP_ITS ---
History of Present Illness Date of Service: 08/03/22 Chief Complaint: Abnormal labs This is a 76-year-old male with history of atrial fibrillation on Eliquis, essential hypertension, dementia with behavioral disturbances , BPH who was asked to come back to the ER for evaluation of Gram-positive cocci in clusters. Patient was seen in the ER yesterday due to unwitnessed fall. Urine was concerning for UTI and patient was discharged with Ceftin. 2/2 blood culture bottles with Gram- positive cocci in clusters and patient was asked to come to the ER for further evaluation. patient is a poor historian and does not know why he is here. He does not remember where he lives. Unable to obtain any history from the patient. History obtained from ER provider and chart review. Patient given broad-spectrum IV antibiotics in the ER, white count noted to be elevated. 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 Social History Alcohol intake: never Smoked in Last 30 Days: No Use of substances other than those prescribed or required for medical reasons: No Advance Directives: No Advance Directives Information Provided: No Meds Allergies Allergy/AdvReac Type Severity Reaction Status Date / Time No Known Allergies Allergy Verified 01/19/22 06:22 Physical Exam Vital Signs and Narrative: Vital Signs: Last Vital Signs Temp 97.3 F 08/03/22 21:42 Pulse 99 08/03/22 21:42 Resp 15 08/03/22 21:42 BP 141/84 H 08/03/22 21:42 Pulse Ox 95 08/03/22 21:42 O2 Del Method 08/03/22 21:42 BMI result Body Mass Index 18.5 Elderly male lying in bed in no distress Neck supple, no JVD Regular rate and rhythm, S1-S2 heard Regular breath sounds bilaterally, no wheezing or crackles appreciated Abdomen soft nontender, no guarding, no rigidity Patient is awake, alert and oriented to self, disoriented to place, time and person ; no focal motor deficit Psych: Normal mood No pedal edema Results Labs 08/03/22 20:24 08/03/22 20:24 Labs: Laboratory Results - last 24 hr 08/03/22 08/03/22 08/03/22 20:24 20:24 20:24 MCV 87.7 MCH 28.5 MCHC 32.4 RDW 13.3 Plt Count 445 H MPV 9.5 Immature Gran % (Auto) 0.9 H Neut % (Auto) 73.9 H Lymph % (Auto) 14.7 L [place] % (Auto) 10.2 Eos % (Auto) 0.1 Baso % (Auto) 0.2 Lymph # (Auto) 2.1 [place] # (Auto) 1.5 H Eos # (Auto) 0.0 Baso # (Auto) 0.0 Abs Immat Gran (auto) 0.13 H Absolute Neuts (auto) 10.7 H Absolute Nucleated RBC 0.000 Nucleated RBC % (auto) 0.0 Anion Gap 18 Estim Creat Clear Calc 41.0 Estimated GFR > 60 Random Glucose 102 Lactic Acid 0.8 Calcium 8.9 Assessment and Plan (1) Gram-positive bacteremia: Status: Acute Plan This is a 76-year-old male with history of atrial fibrillation on Eliquis, essential hypertension, dementia with behavioral disturbances , BPH who was asked to come back to the ER for evaluation of Gram-positive cocci in clusters. #. Sepsis with gram-positive bacteremia, likely due to acute UTI - will admit patient and initiate empiric Rocephin. Follow blood cultures and urine culture. lactic acid obtained. Resuscitated with IV crystalloids #. dementia with behavioral disturbances: Continue mood stabilizers. Maintain sleep-wake cycle #. atrial fibrillation on Eliquis: Rate controlled in the ER #. BPH: On finasteride and Flomax #. essential hypertension: hold home antihypertensives in the setting of sepsis. Restart as appropriate #. chronic normocytic anemia: Hemoglobin above transfusion threshold med rec pending DVT prophylaxis: On Eliquis Full Code Cardiac diet Admit as inpatient and will require two night minimum hospital stay for IV antibiotics and monitoring of blood cultures Time Spent With Patient Time: Total time managing care of this patient today ____ minutes. Quality Stroke Does the patient have a stroke diagnosis?: No VTE Prior VTE?: No VTE Risk Level:: Medical - moderate - high VTE Device Contraindication: Treatment Not Indicated VTE Drug Contraindication: N/A - Med Ordered
--- NOTE | 2022-08-03 22:59 | PHA.MEDREC ---
Pharmacy Consult ? Medication Reconciliation Pharmacy has completed the medication reconciliation.
[2022-08-03] MEDS: 0.9 % Sodium Chloride 1,000 ML 999 ML IV (23:28)
[2022-08-03] MEDS: 0.9 % Sodium Chloride Flush 3 ML SYRINGE IVFLUSH (23:28)
[2022-08-04] VITALS: BP 118/67; PULSE 97; RESP 19; TEMP 37.2; O2SAT 95
[2022-08-04 02:00] LABS: COVID-19 Test Negative (Negative); IDNOW Serial# 6674DD1D
[2022-08-04 06:00] VITALS: BP 125/75; PULSE 76; RESP 17; TEMP 36.8; O2SAT 97
[2022-08-04 07:07] LABS: MANUAL DIFF FLAG NO
[2022-08-04 07:14] LABS: Basophils Percent Auto 0.3 % (0-2); Hematocrit 30.5 % (42.0-52.0); Hemoglobin 9.7 g/dl (14.0-18.0); Imm Gran Abs Auto 0.09 X10*3/uL (0.00-0.03); Imm Gran Pct Auto 0.8 % (0.0-0.4); Lymphocytes Absolute Auto 1.6 X10*3/uL (1.2-4.9); Lymphocytes Percent Auto 13.9 % (20-40); Mean Corpuscular HGB Conc 31.8 g/dl (31.0-36.0); Mean Corpuscular Hemoglobin 28.1 pg (27.0-33.0); Mean Corpuscular Volume 88.4 fL (80.0-98.0); Mean Platelet Volume 9.2 fL (9.4-12.4); Monocytes Absolute Auto 1.1 X10*3/uL (0.1-1.2); Monocytes Percent Auto 9.7 % (2-11); Neutrophils Absolute Auto 8.7 x10*3/uL (2.0-8.3); Neutrophils Percent Auto 75.3 % (45-73); Platelet Count 412 X10*3/uL (160-400); Red Blood Count 3.45 X10*6/uL (4.60-5.80); Red Cell Distribution Width 13.3 % (11.0-16.0); White Blood Count 11.5 X10*3/uL (4.8-10.8)
[2022-08-04] MEDS: 0.9 % Sodium Chloride Flush 3 ML SYRINGE IVFLUSH ×2 (07:15→20:49)
--- NOTE | 2022-08-04 07:32 | PC.NURSE ---
Patient sleeping is easily arouse no distress noted is confused at baseline Afib on wrapper counter moves all ext with purpose. IV flushes with ease no s/s of infiltration will CTM
[2022-08-04 07:42] LABS: Anion Gap 19 (12-20); Blood Urea Nitrogen 14 mg/dL (9-16); Calcium 8.1 mg/dL (8.4-10.2); Carbon Dioxide 22 mmol/L (22-29); Chloride 106 mmol/L (96-108); Creatinine Clr Calc Pharmacy 47.7; Estimated Glomerular Filt Rate > 60; Glucose Random 80 mg/dL (60-115); Potassium 3.9 mmol/L (3.3-5.1); Sodium 143 mmol/L (135-145)
--- NOTE | 2022-08-04 09:21 | PC.NURSE ---
PAtient sleeping easily aroused remains at baseline confusion.
--- NOTE | 2022-08-04 11:09 | MHC.CM.PN ---
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
--- NOTE | 2022-08-04 11:30 | PC.NURSE ---
Report called to Inpatient RN will prepare for transport .
[2022-08-04 12:00] VITALS: BP 142/89; PULSE 81; RESP 14; O2SAT 94
--- NOTE | 2022-08-04 13:00 | CA_ITS ---
Transthoracic Echocardiogram Patient (Last, First, Middle): Joel Acevedo, Gender: Male Date of : 1945 Age: 76 Procedure Date: 08/04/2022 Procedure Type: Transthoracic Echocardiogram Location: [facility] Height: 162.56 cm Weight: 48.54 kg BSA: 1.50 m2 Heart Rate: bpm BP: 142 / 89 mmHg Physician Intensivist: Referring MD: Dhiraj Law MD Symptoms: Bacteremia Study Quality: Fair ECG Rhythm: Sinus Conclusions: - Normal left ventricular size, thickness, and systolic function. The visually estimated ejection fraction is between 55-60%. - E/E prime ratio is between 8 and 15 consistent with indeterminate filling pressures. - Normal right ventricular cavity size and systolic function. - Normal aortic valve structure and function. - Normal mitral valve structure and function. - Normal tricuspid valve structure and function. - There is moderate dilatation of the sinuses of Valsalva measuring 4.50 cm. Findings Left Ventricle Normal left ventricular size, thickness, and systolic function. The visually estimated ejection fraction is between 55-60%. Regional wall motion abnormalities can not be excluded due to suboptimal endocardial definition. Abnormal diastolic function is noted. Spectral Doppler is indicative of an impaired relaxation filling pattern. E/E prime ratio is between 8 and 15 consistent with indeterminate filling pressures. Right Ventricle Normal right ventricular cavity size and systolic function. Atria The left atrium was not well visualized. Aortic Valve Normal aortic valve structure and function. There is no aortic valve stenosis. There is no aortic valve regurgitation. Mitral Valve Normal mitral valve structure and function. There is no mitral valve regurgitation. There is no mitral valve stenosis. Pulmonic Valve The pulmonic valve was not well visualized. Tricuspid Valve Normal tricuspid valve structure and function. There is trace tricuspid valve regurgitation. Tricuspid regurgitation envelope is inadequate for calculation of right ventricular systolic pressure. Indeterminate right atrial pressure. Great Vessels The pulmonary artery was not well visualized. There is moderate dilatation of the sinuses of Valsalva measuring 4.50 cm. Venous The inferior vena cava was not well visualized. Pericardium/Pleural There is no evidence of pericardial effusion. Measurements 2D Linear Measurements IVSd: 0.93 0.6-0.9/0.6-1.0 cm LVIDd: 4.55 3.9-5.3/4.2-5.9 cm LVIDd Index: 3.03 2.4-3.2/2.2-3.1 cm/m2 LVIDs: 2.41 2.0-3.6 cm LVPWd: 0.86 0.7-1.1 cm Ao Root: 4.50 2.1-3.5 cm LA Diam: 2.90 2.7-3.8/3.0-4.0 cm LAIDs Index: 1.93 1.5-2.3 cm/m2 LV Mass: 167.45 67-162/88-224 g LV Mass Index: 111.63 43-95/49-115 g/m2 LVOT Diam: 2.50 3.0+(-)1.3 cm Mitral Valve MV Pk E: 0.81 MV PK A: 1.19 MV Decel Time: 158.00 E/A: 0.70 E'Lateral: 9.79 E'Medial: 7.29 E/E' Med: 11.10 E/E' Lat: 8.30 PHT: 46.00 MVA PHT: 4.78 Decel [place]: 5.11 Aortic Valve AoV Pk Danielito: 1.63 AoV Mn Danielito: 1.19 AoV VTI: 0.28 AoV Pk Grad: 11.00 Aov Mn Grad: 6.00 ISABEL Cont.VTI: 3.20 LVOT LVOT Pk Danielito: 1.01 LVOT Mn Danielito: 0.61 LVOT VTI: 0.18 LVOT Pk Grad: 4.00 LVOT Mn Grad: 2.00 LVOT Diam: 2.50 LVOT Area: 4.91 Diastolic Function MV Pk E: 0.81 MV Pk A: 1.19 E/A: 0.70 E'Medial: 7.29 E/E' Med: 11.10 E' Laterial: 9.79 E/E' Lat: 8.30 Right Ventricle TAPSE (mm): 31.00 TVS' Danielito: 16.00 Tricuspid Valve TR Pk Danielito: 1.84 TR Pk Grad: 14.00 Great Vessels Aorta Ao Root-2D: 4.50 2.0-3.7 cm Sinus of Valsalva: 4.50 2.0-3.5 cm Pulmonary Valve PV Pk Danielito: 0.72 Peak PV Grad: 2.00 Updated in Other Vendor System with Status of Final Ezio Rudd MD electronically signed on 08/04/2022 7:53:16 PM with status of Final
--- NOTE | 2022-08-04 13:37 | HO.PM.IMPN ---
Subjective Subjective Date of Service: 08/04/22 Interval History: f/u on sepsis and bacteremia interval history: blood cultures growing staph 3/4 Physical Exam Vital Signs: Vital Signs: Last Vital Signs Temp 98.3 F 08/04/22 06:00 Pulse 81 08/04/22 12:00 Resp 14 08/04/22 12:00 BP 142/89 H 08/04/22 12:00 Pulse Ox 94 08/04/22 12:00 O2 Del Method 08/04/22 12:00 BMI result Body Mass Index 18.5 Const: Other: General: AO X , no acute distress Resp: CTA bilateral CVS: S1,S2,RRR GI: +BS, NT, no distention Skin: No rash Neuro: motor grossly intact Psych: appropriate affect Objective Data Active Medications Acetaminophen (Acetaminophen 325 Mg Tablet) 650 mg PO Q6H PRN PRN Reason: Pain, Mild (Pain Scale 1-3) Ceftriaxone Sodium 1 gm/ (Sodium Chloride) 50 mls @ 100 mls/hr IV Q24H CHRISS Melatonin (Melatonin 3 Mg Tablet) 6 mg PO BEDTIME PRN PRN Reason: Insomnia Ondansetron HCl (Ondansetron Hcl 4 Mg/2 Ml Vial) 4 mg IVPUSH Q8H PRN PRN Reason: Nausea and Vomiting Pharmacy Consult (Consult Rx Perform Med Rec) 1 each MISCELLANE ONCE PRN PRN Reason: Consult order Sodium Chloride (0.9 % Sodium Chloride Flush 3 Ml Syringe) 3 ml IVFLUSH QSHIFT [facility] Last Admin: 08/04/22 07:15 Dose: 3 ml Documented By: DELORES Labs 08/04/22 07:01 08/04/22 07:01 Labs: Laboratory Results - last 24 hr 08/03/22 08/03/22 08/03/22 20:24 20:24 20:24 MCV 87.7 MCH 28.5 MCHC 32.4 RDW 13.3 Plt Count 445 H MPV 9.5 Immature Gran % (Auto) 0.9 H Neut % (Auto) 73.9 H Lymph % (Auto) 14.7 L [place] % (Auto) 10.2 Eos % (Auto) 0.1 Baso % (Auto) 0.2 Lymph # (Auto) 2.1 [place] # (Auto) 1.5 H Eos # (Auto) 0.0 Baso # (Auto) 0.0 Abs Immat Gran (auto) 0.13 H Absolute Neuts (auto) 10.7 H Absolute Nucleated RBC 0.000 Nucleated RBC % (auto) 0.0 Anion Gap 18 Estim Creat Clear Calc 41.0 Estimated GFR > 60 Random Glucose 102 Lactic Acid 0.8 Calcium 8.9 COVID-19 (CROW) COVID-19 Clin Com 08/04/22 08/04/22 08/04/22 01:27 07:01 07:01 MCV 88.4 MCH 28.1 MCHC 31.8 RDW 13.3 Plt Count 412 H MPV 9.2 L Immature Gran % (Auto) 0.8 H Neut % (Auto) 75.3 H Lymph % (Auto) 13.9 L [place] % (Auto) 9.7 Eos % (Auto) 0.0 Baso % (Auto) 0.3 Lymph # (Auto) 1.6 [place] # (Auto) 1.1 Eos # (Auto) 0.0 Baso # (Auto) 0.0 Abs Immat Gran (auto) 0.09 H Absolute Neuts (auto) 8.7 H Absolute Nucleated RBC 0.000 Nucleated RBC % (auto) 0.0 Anion Gap 19 Estim Creat Clear Calc 47.7 Estimated GFR > 60 Random Glucose 80 Lactic Acid Calcium 8.1 L D COVID-19 (CROW) Negative COVID-19 Clin Com See Note Microbiology Microbiology Results: Microbiology 08/03/22 20:24 Blood Culture - Preliminary Blood - Venous Prelim: GPC Gram Stain only 08/03/22 20:24 Blood Culture - Preliminary Blood - Venous Prelim: GPC Gram Stain only Assessment and Plan (1) Gram-positive bacteremia: Status: Acute (2) Sepsis: Status: Acute Plan This is a 76-year-old male with history of atrial fibrillation on Eliquis, essential hypertension, dementia with behavioral disturbances , BPH who was asked to come back to the ER for evaluation of Gram-positive cocci in clusters. #. Sepsis with gram-positive bacteremia (Staph) source unknown -DC Ceftriaxone, add Vanco -id consult -echo #. dementia with behavioral disturbances: Continue mood stabilizers. Maintain sleep-wake cycle #. atrial fibrillation on Eliquis: Rate controlled in the ER #. BPH: On finasteride and Flomax #. essential hypertension: hold home antihypertensives in the setting of sepsis. Restart as appropriate #. chronic normocytic anemia: Hemoglobin above transfusion threshold med rec pending DVT prophylaxis: On Eliquis Full Code Cardiac diet need for inpatietn:IV Abx for bacteremia, awaiting final cultures Time Spent With Patient Time: Total time managing care of this patient today ____ minutes. Quality Stroke Does the patient have a stroke diagnosis?: No VTE Prior VTE?: No VTE Risk Level:: Medical - moderate - high VTE Device Contraindication: Treatment Not Indicated VTE Drug Contraindication: N/A - Med Ordered
--- NOTE | 2022-08-04 13:51 | PHA.PROG ---
Admission Date/Time: August 03, 2022 22:18 Indication: Bacteremia Weight in k.9 kg Adjusted body weight in K kg [place] body weight in K.2 kg Obesity Dosing Indication % IBW: N.A Serum Creatinine - Last 168 Hours 08/03/22 08/04/22 20:24 07:01 Creatinine 1.06 0.91 Estimated CrCl and GFR - Last 168 Hours 08/03/22 08/04/22 20:24 07:01 Estim Creat Clear Calc 41.0 47.7 Estimated GFR > 60 > 60 Vancomycin Loading Dose: 1250 mg (25 mg/kg) Current Vancomycin Dosing Regimen: 1000 mg Q24H Date and Time for next Vancomycin Level to be drawn: 08/06 @ 1900 Pharmacist Comments on Vancomycin Plan: Patient received an adequate load dose on 08/03 @ 4. Maintenance dose vanco 1000 mg Q24H is scheduled to start 08/04 @ 2100. Expected AUC 543 with a trough of 16.5. Trough to be drawn prior to 3rd dose. If any changes in renal function, will get a level tomorrow prior to 2nd dose. Pharmacy will monitor renal function daily. Juliet Dunlap, [place] Vancomycin dosing will take advantage of [employer] as a clinical decision support tool that uses Bayesian modeling to calculate individual patient's pharmacokinetic parameters and forecast the patient's drug concentration time course with the target goal AUC 24 range of 400 - 600 mg/L/hr.
[2022-08-04 15:50] VITALS: BP 136/84; PULSE 92; RESP 17; TEMP 37; O2SAT 95
--- NOTE | 2022-08-04 15:59 | W.PM.IDCN ---
History of Present Illness Data of Consult Service Date: 08/04/22 Requesting physician: Dhiraj Law Primary Care Provider: Unknown Physician HPI Reason for consult: bacteremia Patient lives at [facility] and had some lethargy, He has blood cultures drawn at hospital and found staph aureus,sensitivities pending. He has dementia and doesnt give much history. He denies pain. 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 Family History Family history: reviewed and not pertinent Social History Social History Alcohol intake: never Patient Tobacco Use Status: Tobacco use Unknown service: No Meds Allergies Allergy/AdvReac Type Severity Reaction Status Date / Time No Known Allergies Allergy Verified 01/19/22 06:22 Active Medications: Current Medications Acetaminophen (Acetaminophen 325 Mg Tablet) 650 mg PO Q6H PRN PRN Reason: Pain, Mild (Pain Scale 1-3) Apixaban (Apixaban 2.5 Mg Tablet) 2.5 mg PO BID CHRISS Cyanocobalamin (Cyanocobalamin (Vitamin B-12) 1,000 Mcg Tablet) 1,000 mcg PO DAILY CHRISS Diltiazem HCl (Diltiazem Hcl Cd 120 Mg Cap.Er.Deg) 120 mg PO DAILY CHRISS; Protocol Famotidine (Famotidine 20 Mg Tablet) 20 mg PO BID CHRISS Finasteride (Finasteride 5 Mg Tablet) 5 mg PO DAILY CHRISS Ceftriaxone Sodium 1 gm/ (Sodium Chloride) 50 mls @ 100 mls/hr IV Q24H CHRISS Vancomycin HCl 1,000 mg/ (Sodium Chloride) 270 mls @ 270 mls/hr IV Q24H CHRISS Melatonin (Melatonin 3 Mg Tablet) 6 mg PO BEDTIME PRN PRN Reason: Insomnia Mirtazapine (Mirtazapine 15 Mg Tablet) 15 mg PO BEDTIME CHRISS Ondansetron HCl (Ondansetron Hcl 4 Mg/2 Ml Vial) 4 mg IVPUSH Q8H PRN PRN Reason: Nausea and Vomiting Pharmacy Consult (Consult Rx Perform Med Rec) 1 each MISCELLANE ONCE PRN PRN Reason: Consult order Pharmacy Consult (Consult Rx Vancomycin Dosing) 1 each MISCELLANE DAILY PRN PRN Reason: Consult order Sodium Chloride (0.9 % Sodium Chloride Flush 3 Ml Syringe) [facility] Last Admin: 08/04/22 13:41 Dose: Not Given Tamsulosin HCl (Tamsulosin Hcl 0.4 Mg Capsule) 0.4 mg PO DAILY COUNTS INCLUDE 234 BEDS AT THE [facility] Thiamine HCl (Thiamine Hcl 100 Mg Tablet) 100 mg PO DAILY COUNTS INCLUDE 234 BEDS AT THE [facility] Home Medications Medication Instructions Recorded Confirmed Last Taken Type apixaban 2.5 mg tablet (Eliquis) 2.5 mg PO BID 08/03/22 08/03/22 Unknown History cyanocobalamin (vitamin B-12) 1,000 mcg PO DAILY 08/03/22 08/03/22 Unknown History 1,000 mcg tablet diltiazem HCl 120 mg 120 mg PO DAILY 08/03/22 08/03/22 Unknown History capsule,extended release 24 hr famotidine 20 mg tablet 20 mg PO BID 08/03/22 08/03/22 Unknown History finasteride 5 mg tablet 5 mg PO DAILY 08/03/22 08/03/22 Unknown History mirtazapine 15 mg tablet 15 mg PO BEDTIME 08/03/22 08/03/22 Unknown History tamsulosin 0.4 mg capsule (Flomax) 0.4 mg PO DAILY 08/03/22 08/03/22 Unknown History thiamine HCl (vitamin B1) 100 mg 100 mg PO DAILY 08/03/22 08/03/22 Unknown History tablet Physical Exam Vital Signs: Vital Signs: Last Vital Signs Temp 98.6 F 08/04/22 15:50 Pulse 92 08/04/22 15:50 Resp 17 08/04/22 15:50 BP 136/84 08/04/22 15:50 Pulse Ox 95 08/04/22 15:50 O2 Del Method 08/04/22 15:50 BMI result Body Mass Index 18.5 Const: General: cooperative HEENT: Head: Yes normal to inspection Face and sinus: Yes normal facial exam Mouth: Normal oral and palatal mucosa present Teeth and gingiva: dentition normal Eyes: General: appearance normal, both eyes and all related structures Pupils: Equal, round and reactive pupils present Resp: Effort & Inspection: normal respiratory effort Cardio: Rate: regular rate Rhythm: regular rhythm GI: Palpation (GI): Soft to palpation and nontender : General: Yes no CVA tenderness Back/Spine/Pelvis: Back: no CVA tenderness Skin: General skin exam: no rashes or lesions noted Neuro: General: moves all extremities Cranial nerves: Yes Equal, round and reactive pupils present Extrem: General: Yes normal to inspection Psych: Mental Status: other (confusion) Results Labs 08/04/22 07:01 08/04/22 07:01 Labs: Short CBC 08/03/22 08/04/22 Range/Units 20:24 07:01 WBC 14.5 H 11.5 H (4.8-10.8) X10*3/uL Hgb 10.9 L 9.7 L (14.0-18.0) g/dl Hct 33.6 L 30.5 L (42.0-52.0) % Plt Count 445 H 412 H (160-400) X10*3/uL BMP 08/03/22 08/04/22 20:24 07:01 Sodium 141 143 Potassium 4.0 3.9 Chloride 102 106 Carbon Dioxide 25 22 BUN 17 H 14 Creatinine 1.06 0.91 Calcium 8.9 8.1 L D Microbiology Microbiology Results: Microbiology 08/03/22 20:24 Blood - Venous Blood Culture - Preliminary Prelim: GPC Gram Stain only 08/03/22 20:24 Blood - Venous Blood Culture - Preliminary Prelim: GPC Gram Stain only Assessment and Plan (1) Sepsis: Status: Acute (2) Gram-positive bacteremia: Status: Acute He has gram positive bacteremia and still pending urine cultures. as well as blood cultures. There is possible endocarditis as well although no stigmata. Plan Vancomycin. Await blood and urine cultures. Check echo Time Spent With Patient Time: Total time managing care of this patient today ____ minutes.
[2022-08-04 19:22] VITALS: BP 126/81; PULSE 93; RESP 17; TEMP 36.7; O2SAT 94
[2022-08-04] MEDS: cefTRIAXone sodium 1 GM in 0.9 % Sodium Chloride 50 ML IV (20:21)
[2022-08-04] MEDS: Apixaban 2.5 MG TABLET PO (20:41)
[2022-08-04] MEDS: Famotidine 20 MG TABLET PO (20:41)
[2022-08-04] MEDS: Mirtazapine 15 MG TABLET PO (20:41)
[2022-08-04] MEDS: Melatonin 3 MG TABLET 6 MG PO (20:41)
[2022-08-04] MEDS: vancomycin HCL 1,000 MG in 0.9 % Sodium Chloride 250 ML 270 MG IV (21:56)
[2022-08-04 23:27] VITALS: BP 116/77; PULSE 93; RESP 18; TEMP 37; O2SAT 97
[2022-08-05 03:31] VITALS: BP 115/69; PULSE 75; RESP 20; TEMP 37.1; O2SAT 95
[2022-08-05 07:13] VITALS: BP 121/74; PULSE 68; RESP 16; TEMP 37.2; O2SAT 95
[2022-08-05 07:56] LABS: Creatinine Clr Calc Pharmacy 48.8; Estimated Glomerular Filt Rate > 60
--- NOTE | 2022-08-05 08:04 | HE.PHANOTE ---
Vancomycin Dosing Renal function is stable. Continue current regimen, vanco 1000 mg Q12H. Expected AUC 561 with a trough 17. Level is to be drawn 08/06 @ 1900. Brianne CamaraD
[2022-08-05] MEDS: Tamsulosin HCL 0.4 MG CAPSULE PO (09:03)
[2022-08-05] MEDS: Thiamine HCL 100 MG TABLET PO (09:03)
[2022-08-05] MEDS: Famotidine 20 MG TABLET PO ×2 (09:03→20:50)
[2022-08-05] MEDS: Cyanocobalamin (Vitamin B-12) 1,000 MCG TABLET 1000 MCG PO (09:03)
[2022-08-05] MEDS: Finasteride 5 MG TABLET PO (09:03)
[2022-08-05] MEDS: dilTIAZem HCL CD 120 MG CAP.ER.DEG PO (09:03)
[2022-08-05] MEDS: Apixaban 2.5 MG TABLET PO ×2 (09:04→20:49)
[2022-08-05] MEDS: 0.9 % Sodium Chloride Flush 3 ML SYRINGE IVFLUSH ×2 (09:04→20:50)
--- NOTE | 2022-08-05 10:44 | P.CDIC_ITS ---
CDI Concurrent Query Documentation Clarification: PHYSICIAN'S DOCUMENTATION REQUEST Date of Query: 08/05/22 1044 Patient Name: Joel Acevedo Admit Date: 08/03/22 Dear Doctor, A review of the medical record indicates additional documentation may be needed. Please review below and update the documentation accordingly. Clinical Indicators: Risk Factors/Clinical Indicators/Treatments Dx Atrial fibrillation on Eliquis, rate controlled in the ED. If possible, please provide further specificity regarding atrial fibrillation, such as: * Paroxysmal atrial fibrillation: terminates spontaneously or with intervention within 7 days of onset. * Persistent atrial fibrillation: episodes of continuous AF that last more than 7 days and do not self-terminate. * Long lasting persistent atrial fibrillation: episodes of continuous AF that last more than 12 months, * Permanent atrial fibrillation * Other (please specify) * Unable to determine Use of terms such as suspected, likely, concern for, or probable (associated with a specific diagnosis that is being evaluated, monitored, or treated as if it exists) are acceptable and can be coded in the inpatient setting, when documented at the time of discharge. Thank you, Margo Wilder [facility], CDIS Extension: [phone] Please use your independent medical judgment in providing your response. THIS QUERY IS PART OF THE PERMANENT MEDICAL RECORD Provider Response: Other Other Diagnosis: permanent afib
[2022-08-05 10:59] VITALS: BP 133/78; PULSE 94; RESP 14; TEMP 37.5; O2SAT 95
[2022-08-05 11:04] VITALS: BMI 18.5
[2022-08-05] MEDS: Acetaminophen 325 MG TABLET 650 MG PO (11:24)
--- NOTE | 2022-08-05 13:15 | P.PNIM_ITS ---
Subjective Subjective Date of Service: 08/05/22 Interval History: f/u on sepsis and bacteremia interval history: confused, but apear to be at baseline Physical Exam Vital Signs: Vital Signs: Last Vital Signs Temp 99.5 F 08/05/22 10:59 Pulse 94 08/05/22 10:59 Resp 14 08/05/22 10:59 BP 133/78 08/05/22 10:59 Pulse Ox 95 08/05/22 10:59 O2 Del Method 08/05/22 10:59 BMI result Body Mass Index 18.5 Const: Other: General: AO X1 , no acute distress Resp: CTA bilateral CVS: S1,S2,RRR GI: +BS, NT, no distention Skin: No rash Neuro: motor grossly intact Psych: appropriate affect Objective Data Active Medications Acetaminophen (Acetaminophen 325 Mg Tablet) 650 mg PO Q6H PRN PRN Reason: Pain, Mild (Pain Scale 1-3) Last Admin: 08/05/22 11:24 Dose: 650 mg Documented By: MICAH Apixaban (Apixaban 2.5 Mg Tablet) 2.5 mg PO BID [facility] Last Admin: 08/05/22 09:04 Dose: 2.5 mg Documented By: MICAH Cyanocobalamin (Cyanocobalamin (Vitamin B-12) 1,000 Mcg Tablet) 1,000 mcg PO DAILY [facility] Last Admin: 08/05/22 09:03 Dose: 1,000 mcg Documented By: MICAH Diltiazem HCl (Diltiazem Hcl Cd 120 Mg Cap.Er.Deg) 120 mg PO DAILY [facility]; Protocol Last Admin: 08/05/22 09:03 Dose: 120 mg Documented By: MICAH Famotidine (Famotidine 20 Mg Tablet) 20 mg PO BID [facility] Last Admin: 08/05/22 09:03 Dose: 20 mg Documented By: MICAH Finasteride (Finasteride 5 Mg Tablet) 5 mg PO DAILY [facility] Last Admin: 08/05/22 09:03 Dose: 5 mg Documented By: MICAH Ceftriaxone Sodium 1 gm/ (Sodium Chloride) 50 mls @ 100 mls/hr IV Q24H [facility] Last Infusion: 08/04/22 22:24 Dose: 0 mls/hr Documented By: ANALISA Vancomycin HCl 1,000 mg/ (Sodium Chloride) 270 mls @ 270 mls/hr IV Q24H [facility] Last Infusion: 08/05/22 02:37 Dose: 0 mls/hr Documented By: ANALISA Melatonin (Melatonin 3 Mg Tablet) 6 mg PO BEDTIME PRN PRN Reason: Insomnia Last Admin: 08/04/22 20:41 Dose: 6 mg Documented By: ANALISA Mirtazapine (Mirtazapine 15 Mg Tablet) 15 mg PO BEDTIME [facility] Last Admin: 08/04/22 20:41 Dose: 15 mg Documented By: ANALISA Ondansetron HCl (Ondansetron Hcl 4 Mg/2 Ml Vial) 4 mg IVPUSH Q8H PRN PRN Reason: Nausea and Vomiting Pharmacy Consult (Consult Rx Perform Med Rec) 1 each MISCELLANE ONCE PRN PRN Reason: Consult order Pharmacy Consult (Consult Rx Vancomycin Dosing) 1 each MISCELLANE DAILY PRN PRN Reason: Consult order Sodium Chloride (0.9 % Sodium Chloride Flush 3 Ml Syringe) 3 ml IVFLUSH QSHIFT [facility] Last Admin: 08/05/22 09:04 Dose: 3 ml Documented By: MICAH Tamsulosin HCl (Tamsulosin Hcl 0.4 Mg Capsule) 0.4 mg PO DAILY [facility] Last Admin: 08/05/22 09:03 Dose: 0.4 mg Documented By: MICAH Thiamine HCl (Thiamine Hcl 100 Mg Tablet) 100 mg PO DAILY [facility] Last Admin: 08/05/22 09:03 Dose: 100 mg Documented By: MICAH Labs 08/04/22 07:01 08/05/22 06:55 Labs: Laboratory Results - last 24 hr 08/05/22 06:55 Estim Creat Clear Calc 48.8 Estimated GFR > 60 Microbiology Microbiology Results: Microbiology 08/03/22 20:24 Blood Culture - Preliminary Blood - Venous Staphylococcus species 08/03/22 20:24 Blood Culture - Preliminary Blood - Venous Staphylococcus species Assessment and Plan (1) Gram-positive bacteremia: Status: Acute (2) Sepsis: Status: Acute Plan This is a 76-year-old male with history of atrial fibrillation on Eliquis, essential hypertension, dementia with behavioral disturbances , BPH who was asked to come back to the ER for evaluation of Gram-positive cocci in clusters. #. Sepsis with gram-positive bacteremia (Staph) source unknown, 4/4 -continue Vanco -id consult -echo pending #. dementia with behavioral disturbances: Continue mood stabilizers. Maintain sleep-wake cycle #. atrial fibrillation on Eliquis: Rate controlled in the ER #. BPH: On finasteride and Flomax #. essential hypertension: hold home antihypertensives in the setting of sepsis. Restart as appropriate #. chronic normocytic anemia: Hemoglobin above transfusion threshold #. Dementia, no behavioral issues at this time med rec pending DVT prophylaxis: On Eliquis Full Code Cardiac diet need for inpatietn:IV Abx for bacteremia, awaiting final cultures Time Spent With Patient Time: Total time managing care of this patient today ____ minutes. Quality Stroke Does the patient have a stroke diagnosis?: No VTE Prior VTE?: No VTE Risk Level:: Medical - moderate - high VTE Device Contraindication: Treatment Not Indicated VTE Drug Contraindication: N/A - Med Ordered
[2022-08-05 15:12] VITALS: BP 138/76; PULSE 82; RESP 20; TEMP 36.7; O2SAT 97
[2022-08-05 19:15] VITALS: BP 140/76; PULSE 82; RESP 20; TEMP 36.6; O2SAT 98
[2022-08-05] MEDS: Mirtazapine 15 MG TABLET PO (20:49)
[2022-08-05] MEDS: cefTRIAXone sodium 1 GM in 0.9 % Sodium Chloride 50 ML IV (20:49)
[2022-08-05] MEDS: vancomycin HCL 1,000 MG in 0.9 % Sodium Chloride 250 ML 270 MG IV (21:45)
[2022-08-05 23:22] VITALS: BP 155/94; PULSE 79; RESP 18; TEMP 37.1; O2SAT 96
[2022-08-06 07:34] VITALS: BP 128/79; PULSE 66; RESP 18; TEMP 37.2; O2SAT 96
[2022-08-06 07:56] LABS: Creatinine Clr Calc Pharmacy 51.1; Estimated Glomerular Filt Rate > 60
--- NOTE | 2022-08-06 08:00 | P.CDIC_ITS ---
CDI Concurrent Query Documentation Clarification: PHYSICIAN'S DOCUMENTATION REQUEST Date of Query: 08/06/22 0800 Patient Name: Joel Acevedo Admit Date: 08/03/22 Dear Doctor, A review of the medical record indicates additional documentation may be needed. Please review below and update the documentation accordingly. Clinical Indicators: Risk Factors/Clinical Indicators/Treatments Nutrition note 2/ - Underweight with BMI 18.5 Prolong catabolic illness, mild depleted muscle mass + 6% nonsignificant wt loss x 6 mths. Ensure BID to increase KCALS. If possible, please provide an associated diagnosis related to the abnormal BMI, such as: For a BMI <= 19: * Underweight * Weight loss * Anorexia Other Unable to determine Use of terms such as suspected, likely, concern for, or probable (associated with a specific diagnosis that is being evaluated, monitored, or treated as if it exists) are acceptable and can be coded in the inpatient setting, when documented at the time of discharge. Thank you, Margo Wilder [facility], CDIS Extension: [phone] Please use your independent medical judgment in providing your response. THIS QUERY IS PART OF THE PERMANENT MEDICAL RECORD Provider Response: Moderate Protein-Calorie Malnutrition
[2022-08-06] MEDS: Cyanocobalamin (Vitamin B-12) 1,000 MCG TABLET 1000 MCG PO (09:43)
[2022-08-06] MEDS: Thiamine HCL 100 MG TABLET PO (09:43)
[2022-08-06] MEDS: Famotidine 20 MG TABLET PO ×2 (09:43→20:22)
[2022-08-06] MEDS: Tamsulosin HCL 0.4 MG CAPSULE PO (09:43)
[2022-08-06] MEDS: Apixaban 2.5 MG TABLET PO ×2 (09:43→20:22)
[2022-08-06] MEDS: Finasteride 5 MG TABLET PO (09:43)
[2022-08-06] MEDS: dilTIAZem HCL CD 120 MG CAP.ER.DEG PO (09:43)
[2022-08-06] MEDS: 0.9 % Sodium Chloride Flush 3 ML SYRINGE IVFLUSH ×3 (09:44→20:22)
--- NOTE | 2022-08-06 10:56 | P.PNIM_ITS ---
Subjective Subjective Date of Service: 08/06/22 Interval History: f/u on sepsis and bacteremia interval history:at baseline confusion, no new issues Physical Exam Vital Signs: Vital Signs: Last Vital Signs Temp 98.9 F 08/06/22 07:34 Pulse 66 08/06/22 07:34 Resp 18 08/06/22 07:34 BP 128/79 08/06/22 07:34 Pulse Ox 96 08/06/22 07:34 O2 Del Method 08/06/22 07:34 BMI result Body Mass Index 18.5 Const: Other: General: AO X1 , no acute distress Resp: CTA bilateral CVS: S1,S2,RRR GI: +BS, NT, no distention Skin: No rash Neuro: motor grossly intact Psych: appropriate affect Objective Data Active Medications Acetaminophen (Acetaminophen 325 Mg Tablet) 650 mg PO Q6H PRN PRN Reason: Pain, Mild (Pain Scale 1-3) Last Admin: 08/05/22 11:24 Dose: 650 mg Documented By: MICAH Apixaban (Apixaban 2.5 Mg Tablet) 2.5 mg PO BID [facility] Last Admin: 08/06/22 09:43 Dose: 2.5 mg Documented By: ELLY Cyanocobalamin (Cyanocobalamin (Vitamin B-12) 1,000 Mcg Tablet) 1,000 mcg PO DAILY [facility] Last Admin: 08/06/22 09:43 Dose: 1,000 mcg Documented By: ELLY Diltiazem HCl (Diltiazem Hcl Cd 120 Mg Cap.Er.Deg) 120 mg PO DAILY [facility]; Protocol Last Admin: 08/06/22 09:43 Dose: 120 mg Documented By: ELLY Famotidine (Famotidine 20 Mg Tablet) 20 mg PO BID [facility] Last Admin: 08/06/22 09:43 Dose: 20 mg Documented By: ELLY Finasteride (Finasteride 5 Mg Tablet) 5 mg PO DAILY [facility] Last Admin: 08/06/22 09:43 Dose: 5 mg Documented By: LELY Ceftriaxone Sodium 1 gm/ (Sodium Chloride) 50 mls @ 100 mls/hr IV Q24H [facility] Last Infusion: 08/05/22 21:49 Dose: 0 mls/hr Documented By: ANALISA Vancomycin HCl 1,000 mg/ (Sodium Chloride) 270 mls @ 270 mls/hr IV Q24H [facility] Last Infusion: 08/06/22 01:03 Dose: 0 mls/hr Documented By: ANALISA Melatonin (Melatonin 3 Mg Tablet) 6 mg PO BEDTIME PRN PRN Reason: Insomnia Last Admin: 08/04/22 20:41 Dose: 6 mg Documented By: ANALISA Mirtazapine (Mirtazapine 15 Mg Tablet) 15 mg PO BEDTIME [facility] Last Admin: 08/05/22 20:49 Dose: 15 mg Documented By: ANALISA Ondansetron HCl (Ondansetron Hcl 4 Mg/2 Ml Vial) 4 mg IVPUSH Q8H PRN PRN Reason: Nausea and Vomiting Pharmacy Consult (Consult Rx Perform Med Rec) 1 each MISCELLANE ONCE PRN PRN Reason: Consult order Pharmacy Consult (Consult Rx Vancomycin Dosing) 1 each MISCELLANE DAILY PRN PRN Reason: Consult order Sodium Chloride (0.9 % Sodium Chloride Flush 3 Ml Syringe) 3 ml IVFLUSH QSHIFT [facility] Last Admin: 08/06/22 09:44 Dose: 3 ml Documented By: ELLY Tamsulosin HCl (Tamsulosin Hcl 0.4 Mg Capsule) 0.4 mg PO DAILY [facility] Last Admin: 08/06/22 09:43 Dose: 0.4 mg Documented By: ELLY Thiamine HCl (Thiamine Hcl 100 Mg Tablet) 100 mg PO DAILY [facility] Last Admin: 08/06/22 09:43 Dose: 100 mg Documented By: ELLY Labs 08/04/22 07:01 08/06/22 07:07 Labs: Laboratory Results - last 24 hr 08/06/22 07:07 Estim Creat Clear Calc 51.1 Estimated GFR > 60 Microbiology Microbiology Results: Microbiology 08/03/22 20:24 Blood Culture - Final Blood - Venous Methicillin Res Staph Aureus 08/03/22 20:24 Blood Culture - Final Blood - Venous Methicillin Res Staph Aureus Assessment and Plan (1) Gram-positive bacteremia: Status: Acute (2) Sepsis: Status: Acute Plan This is a 76-year-old male with history of atrial fibrillation on Eliquis, essential hypertension, dementia with behavioral disturbances , BPH who was asked to come back to the ER for evaluation of Gram-positive cocci in clusters. #. Sepsis d/t MRSA bacteremia, source unclear 10/06 + -id following -echo 08/04/22, no vegetation -will need buttermaker continuous churn Abx #. dementia with behavioral disturbances: Continue mood stabilizers. Maintain sleep-wake cycle #. atrial fibrillation on Eliquis: Rate controlled in the ER #. BPH: On finasteride and Flomax #. essential hypertension: hold home antihypertensives in the setting of se psis. Restart as appropriate #. chronic normocytic anemia: Hemoglobin above transfusion threshold DVT prophylaxis: On Eliquis Full Code Cardiac diet need for inpatietn:IV Abx for bacteremia, awaiting final cultures Time Spent With Patient Time: Total time managing care of this patient today ____ minutes. Quality Stroke Does the patient have a stroke diagnosis?: No VTE Prior VTE?: No VTE Risk Level:: Medical - moderate - high VTE Device Contraindication: Treatment Not Indicated VTE Drug Contraindication: N/A - Med Ordered
[2022-08-06 11:07] VITALS: BP 117/72; PULSE 71; RESP 18; TEMP 37.1; O2SAT 97
[2022-08-06 15:04] VITALS: BP 124/73; PULSE 71; RESP 20; TEMP 37.3; O2SAT 94
[2022-08-06 19:14] VITALS: BP 126/74; PULSE 77; RESP 20; TEMP 36.8; O2SAT 98
[2022-08-06 19:35] LABS: Vancomycin Trough 10.3 mcg/mL (10.0-20.0)
--- NOTE | 2022-08-06 19:45 | HE.PHANOTE ---
Patient trough 10.3, auc is 454, cont same dose next level 2/4 @1900
[2022-08-06] MEDS: Melatonin 3 MG TABLET 6 MG PO (20:22)
[2022-08-06] MEDS: Mirtazapine 15 MG TABLET PO (20:22)
[2022-08-06] MEDS: cefTRIAXone sodium 1 GM in 0.9 % Sodium Chloride 50 ML IV (20:22)
[2022-08-06] MEDS: vancomycin HCL 1,000 MG in 0.9 % Sodium Chloride 250 ML 270 MG IV (22:17)
[2022-08-07] VITALS: BP 128/73; PULSE 77; RESP 18; TEMP 36.8; O2SAT 94
[2022-08-07 07:45] LABS: Creatinine Clr Calc Pharmacy 53.6; Estimated Glomerular Filt Rate > 60
[2022-08-07 07:47] VITALS: BP 118/76; PULSE 70; RESP 18; TEMP 36.9; O2SAT 96
[2022-08-07] MEDS: 0.9 % Sodium Chloride Flush 3 ML SYRINGE IVFLUSH ×3 (08:48→23:55)
[2022-08-07] MEDS: Apixaban 2.5 MG TABLET PO ×2 (08:48→20:28)
[2022-08-07] MEDS: Famotidine 20 MG TABLET PO ×2 (08:48→20:28)
[2022-08-07] MEDS: Tamsulosin HCL 0.4 MG CAPSULE PO (08:48)
[2022-08-07] MEDS: Cyanocobalamin (Vitamin B-12) 1,000 MCG TABLET 1000 MCG PO (08:48)
[2022-08-07] MEDS: Finasteride 5 MG TABLET PO (08:48)
[2022-08-07] MEDS: Thiamine HCL 100 MG TABLET PO (08:48)
[2022-08-07] MEDS: dilTIAZem HCL CD 120 MG CAP.ER.DEG PO (08:48)
--- NOTE | 2022-08-07 09:53 | HO.PM.IMPN ---
Subjective Subjective Date of Service: 08/07/22 Interval History: f/u on sepsis and bacteremia interval history:at baseline confusion, no new issues Physical Exam Vital Signs: Vital Signs: Last Vital Signs Temp 98.4 F 08/07/22 07:47 Pulse 70 08/07/22 07:47 Resp 18 08/07/22 07:47 BP 118/76 08/07/22 07:47 Pulse Ox 96 08/07/22 07:47 O2 Del Method 08/07/22 07:47 BMI result Body Mass Index 18.5 Const: Other: General: AO X1 , no acute distress Resp: CTA bilateral CVS: S1,S2,RRR GI: +BS, NT, no distention Skin: No rash Neuro: motor grossly intact Psych: appropriate affect Objective Data Active Medications Acetaminophen (Acetaminophen 325 Mg Tablet) 650 mg PO Q6H PRN PRN Reason: Pain, Mild (Pain Scale 1-3) Last Admin: 08/05/22 11:24 Dose: 650 mg Documented By: MICAH Apixaban (Apixaban 2.5 Mg Tablet) 2.5 mg PO BID [facility] Last Admin: 08/07/22 08:48 Dose: 2.5 mg Documented By: ELLY Cyanocobalamin (Cyanocobalamin (Vitamin B-12) 1,000 Mcg Tablet) 1,000 mcg PO DAILY [facility] Last Admin: 08/07/22 08:48 Dose: 1,000 mcg Documented By: ELLY Diltiazem HCl (Diltiazem Hcl Cd 120 Mg Cap.Er.Deg) 120 mg PO DAILY [facility]; Protocol Last Admin: 08/07/22 08:48 Dose: 120 mg Documented By: ELLY Famotidine (Famotidine 20 Mg Tablet) 20 mg PO BID [facility] Last Admin: 08/07/22 08:48 Dose: 20 mg Documented By: ELLY Finasteride (Finasteride 5 Mg Tablet) 5 mg PO DAILY [facility] Last Admin: 08/07/22 08:48 Dose: 5 mg Documented By: ELLY Ceftriaxone Sodium 1 gm/ (Sodium Chloride) 50 mls @ 100 mls/hr IV Q24H [facility] Last Infusion: 08/06/22 21:03 Dose: 0 mls/hr Documented By: NEENA Vancomycin HCl 1,000 mg/ (Sodium Chloride) 270 mls @ 270 mls/hr IV Q24H [facility] Last Infusion: 08/06/22 23:26 Dose: 0 mls/hr Documented By: SHAHZAD Melatonin (Melatonin 3 Mg Tablet) 6 mg PO BEDTIME PRN PRN Reason: Insomnia Last Admin: 08/06/22 20:22 Dose: 6 mg Documented By: NEENA Mirtazapine (Mirtazapine 15 Mg Tablet) 15 mg PO BEDTIME [facility] Last Admin: 08/06/22 20:22 Dose: 15 mg Documented By: NEENA Ondansetron HCl (Ondansetron Hcl 4 Mg/2 Ml Vial) 4 mg IVPUSH Q8H PRN PRN Reason: Nausea and Vomiting Pharmacy Consult (Consult Rx Perform Med Rec) 1 each MISCELLANE ONCE PRN PRN Reason: Consult order Pharmacy Consult (Consult Rx Vancomycin Dosing) 1 each MISCELLANE DAILY PRN PRN Reason: Consult order Sodium Chloride (0.9 % Sodium Chloride Flush 3 Ml Syringe) 3 ml IVFLUSH QSHIFT [facility] Last Admin: 08/07/22 08:48 Dose: 3 ml Documented By: ELLY Tamsulosin HCl (Tamsulosin Hcl 0.4 Mg Capsule) 0.4 mg PO DAILY [facility] Last Admin: 08/07/22 08:48 Dose: 0.4 mg Documented By: ELLY Thiamine HCl (Thiamine Hcl 100 Mg Tablet) 100 mg PO DAILY [facility] Last Admin: 08/07/22 08:48 Dose: 100 mg Documented By: ELLY Labs 08/04/22 07:01 08/07/22 07:13 Labs: Laboratory Results - last 24 hr 08/06/22 08/07/22 18:58 07:13 Estim Creat Clear Calc 53.6 Estimated GFR > 60 Vancomycin Trough 10.3 Microbiology Microbiology Results: Microbiology 08/03/22 20:24 Blood Culture - Final Blood - Venous Methicillin Res Staph Aureus 08/03/22 20:24 Blood Culture - Final Blood - Venous Methicillin Res Staph Aureus Assessment and Plan (1) Gram-positive bacteremia: Status: Acute (2) Sepsis: Status: Acute Plan This is a 76-year-old male with history of atrial fibrillation on Eliquis, essential hypertension, dementia with behavioral disturbances , BPH who was asked to come back to the ER for evaluation of Gram-positive cocci in clusters. #. Sepsis d/t MRSA bacteremia, source unclear 10/06 + -id following -echo 08/04/22, no vegetation -will need care home Abx -repeat Cx pending #. dementia with behavioral disturbances: Continue mood stabilizers. Maintain sleep-wake cycle #. atrial fibrillation on Eliquis: Rate controlled in the ER #. BPH: On finasteride and Flomax #. essential hypertension: hold home antihypertensives in the setting of sepsis. Restart as appropriate #. chronic normocytic anemia: Hemoglobin above transfusion threshold DVT prophylaxis: On Eliquis Full Code Cardiac diet need for inpatietn:IV Abx for bacteremia, awaiting final cultures Time Spent With Patient Time: Total time managing care of this patient today ____ minutes. Quality Stroke Does the patient have a stroke diagnosis?: No VTE Prior VTE?: No VTE Risk Level:: Medical - moderate - high VTE Device Contraindication: Treatment Not Indicated VTE Drug Contraindication: N/A - Med Ordered
[2022-08-07 11:25] VITALS: BP 125/78; PULSE 71; RESP 20; TEMP 36.9; O2SAT 96
--- NOTE | 2022-08-07 13:17 | MHC.CLN ---
F/U PT IS UNDER WT FOR HT PT WITH MILD DEPLETED MUSCLE MASS AND 6% NON-SIGNIFICANT WT LOSS X 6 MONTHS PO INTAKE 75% X1 DIET RX: CARDIAC-APPROPRIATE PT RECEIVING ENSURE BID TO INCREASE KCALS SUPP TO PROVIDE 700KCALS, 40G PROTEIN MONITOR PO INTAKE CLOSELY
[2022-08-07 15:17] VITALS: BP 120/73; PULSE 85; RESP 20; TEMP 37.3; O2SAT 97
--- NOTE | 2022-08-07 15:36 | MHC.CM.PN ---
DP return to [facility] via S. No discharge today. Per MD rounds maybe Wednesday. Blood cultures are pending for PICC line placement.
[2022-08-07 19:15] VITALS: BP 122/72; PULSE 84; RESP 20; TEMP 37.3; O2SAT 96
[2022-08-07] MEDS: cefTRIAXone sodium 1 GM in 0.9 % Sodium Chloride 50 ML IV (20:27)
[2022-08-07] MEDS: Acetaminophen 325 MG TABLET 650 MG PO (20:27)
[2022-08-07] MEDS: Mirtazapine 15 MG TABLET PO (20:28)
[2022-08-07] MEDS: vancomycin HCL 1,000 MG in 0.9 % Sodium Chloride 250 ML 270 MG IV (22:18)
[2022-08-07 23:13] VITALS: BP 132/84; PULSE 80; RESP 20; TEMP 36.6; O2SAT 97
[2022-08-08 03:36] VITALS: BP 128/80; PULSE 78; RESP 20; TEMP 37.1; O2SAT 96
[2022-08-08 07:05] LABS: Creatinine Clr Calc Pharmacy 57.1; Estimated Glomerular Filt Rate > 60
[2022-08-08 07:29] VITALS: BP 125/78; PULSE 80; RESP 20; TEMP 36.8; O2SAT 98
[2022-08-08] MEDS: 0.9 % Sodium Chloride Flush 3 ML SYRINGE IVFLUSH (09:26)
[2022-08-08] MEDS: Tamsulosin HCL 0.4 MG CAPSULE PO (09:26)
[2022-08-08] MEDS: Thiamine HCL 100 MG TABLET PO (09:26)
[2022-08-08] MEDS: dilTIAZem HCL CD 120 MG CAP.ER.DEG PO (09:27)
[2022-08-08] MEDS: Cyanocobalamin (Vitamin B-12) 1,000 MCG TABLET 1000 MCG PO (09:27)
[2022-08-08] MEDS: Famotidine 20 MG TABLET PO ×2 (09:27→21:53)
[2022-08-08] MEDS: Apixaban 2.5 MG TABLET PO ×2 (09:27→21:53)
[2022-08-08] MEDS: Finasteride 5 MG TABLET PO (09:27)
[2022-08-08 11:19] VITALS: BP 132/80; PULSE 77; RESP 19; TEMP 36.7; O2SAT 99
--- NOTE | 2022-08-08 11:21 | P.PNIM_ITS ---
Subjective Subjective Date of Service: 08/08/22 Interval History: f/u on sepsis and bacteremia interval history:at baseline confusion, no new issues, repeat Bcx negative at 24 Physical Exam Vital Signs: Vital Signs: Last Vital Signs Temp 98.2 F 08/08/22 07:29 Pulse 80 08/08/22 07:29 Resp 20 08/08/22 07:29 BP 125/78 08/08/22 07:29 Pulse Ox 98 08/08/22 07:29 O2 Del Method 08/08/22 07:29 BMI result Body Mass Index 18.5 Const: Other: General: AO X1 , no acute distress Resp: CTA bilateral CVS: S1,S2,RRR GI: +BS, NT, no distention Skin: No rash Neuro: motor grossly intact Psych: appropriate affect Objective Data Active Medications Acetaminophen (Acetaminophen 325 Mg Tablet) 650 mg PO Q6H PRN PRN Reason: Pain, Mild (Pain Scale 1-3) Last Admin: 08/07/22 20:27 Dose: 650 mg Documented By: GEOVANNA Apixaban (Apixaban 2.5 Mg Tablet) 2.5 mg PO BID [facility] Last Admin: 08/08/22 09:27 Dose: 2.5 mg Documented By: LYUDMILA Cyanocobalamin (Cyanocobalamin (Vitamin B-12) 1,000 Mcg Tablet) 1,000 mcg PO DAILY [facility] Last Admin: 08/08/22 09:27 Dose: 1,000 mcg Documented By: LYUDMILA Diltiazem HCl (Diltiazem Hcl Cd 120 Mg Cap.Er.Deg) 120 mg PO DAILY [facility]; Protocol Last Admin: 08/08/22 09:27 Dose: 120 mg Documented By: LYUDMILA Famotidine (Famotidine 20 Mg Tablet) 20 mg PO BID [facility] Last Admin: 08/08/22 09:27 Dose: 20 mg Documented By: LYUDMILA Finasteride (Finasteride 5 Mg Tablet) 5 mg PO DAILY [facility] Last Admin: 08/08/22 09:27 Dose: 5 mg Documented By: LYUDMILA Ceftriaxone Sodium 1 gm/ (Sodium Chloride) 50 mls @ 100 mls/hr IV Q24H [facility] Last Infusion: 08/07/22 22:19 Dose: 0 mls/hr Documented By: GEOVANNA Vancomycin HCl 1,000 mg/ (Sodium Chloride) 270 mls @ 270 mls/hr IV Q24H [facility] Last Infusion: 08/07/22 23:48 Dose: 0 mls/hr Documented By: GEOVANNA Melatonin (Melatonin 3 Mg Tablet) 6 mg PO BEDTIME PRN PRN Reason: Insomnia Last Admin: 08/06/22 20:22 Dose: 6 mg Documented By: DESYAIR Mirtazapine (Mirtazapine 15 Mg Tablet) 15 mg PO BEDTIME [facility] Last Admin: 08/07/22 20:28 Dose: 15 mg Documented By: GEOVANNA Ondansetron HCl (Ondansetron Hcl 4 Mg/2 Ml Vial) 4 mg IVPUSH Q8H PRN PRN Reason: Nausea and Vomiting Pharmacy Consult (Consult Rx Perform Med Rec) 1 each MISCELLANE ONCE PRN PRN Reason: Consult order Pharmacy Consult (Consult Rx Vancomycin Dosing) 1 each MISCELLANE DAILY PRN PRN Reason: Consult order Sodium Chloride (0.9 % Sodium Chloride Flush 3 Ml Syringe) 3 ml IVFLUSH QSHIFT [facility] Last Admin: 08/08/22 09:26 Dose: 3 ml Documented By: LYUDMILA Tamsulosin HCl (Tamsulosin Hcl 0.4 Mg Capsule) 0.4 mg PO DAILY [facility] Last Admin: 08/08/22 09:26 Dose: 0.4 mg Documented By: LYUDMILA Thiamine HCl (Thiamine Hcl 100 Mg Tablet) 100 mg PO DAILY [facility] Last Admin: 08/08/22 09:26 Dose: 100 mg Documented By: LYUDMILA Labs 08/04/22 07:01 08/08/22 06:12 Labs: Laboratory Results - last 24 hr 08/08/22 06:12 Estim Creat Clear Calc 57.1 Estimated GFR > 60 Microbiology Microbiology Results: Microbiology 08/06/22 08:46 Blood Culture - Preliminary Blood - Venous No growth after 48 hours. 08/06/22 08:46 Blood Culture - Preliminary Blood - Venous No growth after 48 hours. Assessment and Plan (1) Gram-positive bacteremia: Status: Acute (2) Sepsis: Status: Acute Plan This is a 76-year-old male with history of atrial fibrillation on Eliquis, essential hypertension, dementia with behavioral disturbances , BPH who was asked to come back to the ER for evaluation of Gram-positive cocci in clusters. #. Sepsis d/t MRSA bacteremia, source unclear 10/06 + -id following -echo 08/04/22, no vegetation -will need correction Abx -repeat Cx negative at 24 hours #. dementia with behavioral disturbances: Continue mood stabilizers. Maintain sleep-wake cycle #. atrial fibrillation on Eliquis: Rate controlled on cardizem #. BPH: On finasteride and Flomax #. essential hypertension: hold home antihypertensives in the setting of sepsis. Restart as appropriate #. chronic normocytic anemia: Hemoglobin above transfusion threshold DVT prophylaxis: On Eliquis Full Code Cardiac diet need for inpatietn:IV Abx for bacteremia, awaiting final cultures Time Spent With Patient Time: Total time managing care of this patient today ____ minutes. Quality Stroke Does the patient have a stroke diagnosis?: No VTE Prior VTE?: No VTE Risk Level:: Medical - moderate - high VTE Device Contraindication: Treatment Not Indicated VTE Drug Contraindication: N/A - Med Ordered
[2022-08-08 16:00] VITALS: BP 110/65; PULSE 80; RESP 19; TEMP 36.8; O2SAT 99
[2022-08-08 19:34] LABS: Vancomycin Random 10.5 mcg/mL (15-20)
[2022-08-08 19:35] VITALS: BP 114/74; PULSE 74; RESP 16; TEMP 36.8; O2SAT 96
--- NOTE | 2022-08-08 19:40 | HE.PHANOTE ---
Vancomycin Dosing Level 10.5 today (AUC 415). Since patient has bacteremia will slightly increase dose to 1250 mg Q24H. New Expected AUC 515 with a trough of 13.1. Next level 2/6 @ 1900. Pharmacy will continue to monitor renal function. Juliet Dunlap, PharmD
--- NOTE | 2022-08-08 21:40 | PC.NURSE ---
Pt c/o R-arm pain, yells when it is touched. R-ac area is swollen. Has a big lump. MD Conteh notified. No new orders at this time.
[2022-08-08] MEDS: Mirtazapine 15 MG TABLET PO (21:53)
[2022-08-08] MEDS: cefTRIAXone sodium 1 GM in 0.9 % Sodium Chloride 50 ML IV (21:53)
[2022-08-08] MEDS: vancomycin HCL 1,250 MG in 0.9 % Sodium Chloride 250 ML 166.67 MG IV (22:39)
[2022-08-08 23:17] VITALS: BP 115/81; PULSE 75; RESP 15; TEMP 37.2; O2SAT 98
[2022-08-09 02:57] VITALS: BP 121/74; PULSE 71; RESP 15; TEMP 37; O2SAT 98
[2022-08-09 07:39] VITALS: BP 125/80; PULSE 75; RESP 17; TEMP 37.1; O2SAT 99
[2022-08-09] MEDS: 0.9 % Sodium Chloride Flush 3 ML SYRINGE IVFLUSH ×3 (08:25→21:03)
[2022-08-09] MEDS: Tamsulosin HCL 0.4 MG CAPSULE PO (08:25)
[2022-08-09] MEDS: Apixaban 2.5 MG TABLET PO ×2 (08:25→21:03)
[2022-08-09] MEDS: dilTIAZem HCL CD 120 MG CAP.ER.DEG PO (08:25)
[2022-08-09] MEDS: Thiamine HCL 100 MG TABLET PO (08:25)
[2022-08-09] MEDS: Cyanocobalamin (Vitamin B-12) 1,000 MCG TABLET 1000 MCG PO (08:25)
[2022-08-09] MEDS: Famotidine 20 MG TABLET PO ×2 (08:25→21:03)
[2022-08-09] MEDS: Finasteride 5 MG TABLET PO (08:25)
[2022-08-09 08:36] LABS: Creatinine Clr Calc Pharmacy 57.1; Estimated Glomerular Filt Rate > 60
--- NOTE | 2022-08-09 09:31 | P.PNIM_ITS ---
Subjective Subjective Date of Service: 08/09/22 Interval History: f/u on sepsis and bacteremia interval history:no new issues, confsed at baseline Physical Exam Vital Signs: Vital Signs: Last Vital Signs Temp 98.8 F 08/09/22 07:39 Pulse 75 08/09/22 07:39 Resp 17 08/09/22 07:39 BP 125/80 08/09/22 07:39 Pulse Ox 99 08/09/22 07:39 O2 Del Method 08/09/22 07:39 BMI result Body Mass Index 18.5 Const: Other: General: AO X1 , no acute distress Resp: CTA bilateral CVS: S1,S2,RRR GI: +BS, NT, no distention Skin: No rash Neuro: motor grossly intact Psych: appropriate affect Objective Data Active Medications Acetaminophen (Acetaminophen 325 Mg Tablet) 650 mg PO Q6H PRN PRN Reason: Pain, Mild (Pain Scale 1-3) Last Admin: 08/07/22 20:27 Dose: 650 mg Documented By: GEOVANNA Apixaban (Apixaban 2.5 Mg Tablet) 2.5 mg PO BID [facility] Last Admin: 08/09/22 08:25 Dose: 2.5 mg Documented By: FLIP Cyanocobalamin (Cyanocobalamin (Vitamin B-12) 1,000 Mcg Tablet) 1,000 mcg PO DAILY [facility] Last Admin: 08/09/22 08:25 Dose: 1,000 mcg Documented By: FLIP Diltiazem HCl (Diltiazem Hcl Cd 120 Mg Cap.Er.Deg) 120 mg PO DAILY [facility]; Protocol Last Admin: 08/09/22 08:25 Dose: 120 mg Documented By: FLIP Famotidine (Famotidine 20 Mg Tablet) 20 mg PO BID [facility] Last Admin: 08/09/22 08:25 Dose: 20 mg Documented By: FLIP Finasteride (Finasteride 5 Mg Tablet) 5 mg PO DAILY [facility] Last Admin: 08/09/22 08:25 Dose: 5 mg Documented By: FLIP Ceftriaxone Sodium 1 gm/ (Sodium Chloride) 50 mls @ 100 mls/hr IV Q24H [facility] Last Infusion: 08/08/22 22:39 Dose: 0 mls/hr Documented By: GEOVANNA Vancomycin HCl 1,250 mg/ (Sodium Chloride) 250 mls @ 166.667 mls/hr IV Q24H [facility] Last Infusion: 08/09/22 00:47 Dose: 0 mls/hr Documented By: GEOVANNA Melatonin (Melatonin 3 Mg Tablet) 6 mg PO BEDTIME PRN PRN Reason: Insomnia Last Admin: 08/06/22 20:22 Dose: 6 mg Documented By: NEENA Mirtazapine (Mirtazapine 15 Mg Tablet) 15 mg PO BEDTIME [facility] Last Admin: 08/08/22 21:53 Dose: 15 mg Documented By: GEOVANNA Ondansetron HCl (Ondansetron Hcl 4 Mg/2 Ml Vial) 4 mg IVPUSH Q8H PRN PRN Reason: Nausea and Vomiting Pharmacy Consult (Consult Rx Perform Med Rec) 1 each MISCELLANE ONCE PRN PRN Reason: Consult order Pharmacy Consult (Consult Rx Vancomycin Dosing) 1 each MISCELLANE DAILY PRN PRN Reason: Consult order Sodium Chloride (0.9 % Sodium Chloride Flush 3 Ml Syringe) 3 ml IVFLUSH QSHIFT [facility] Last Admin: 08/09/22 08:25 Dose: 3 ml Documented By: FLIP Tamsulosin HCl (Tamsulosin Hcl 0.4 Mg Capsule) 0.4 mg PO DAILY [facility] Last Admin: 08/09/22 08:25 Dose: 0.4 mg Documented By: FLIP Thiamine HCl (Thiamine Hcl 100 Mg Tablet) 100 mg PO DAILY [facility] Last Admin: 08/09/22 08:25 Dose: 100 mg Documented By: FLIP Labs 08/04/22 07:01 08/09/22 07:11 Labs: Laboratory Results - last 24 hr 08/08/22 08/09/22 19:07 07:11 Estim Creat Clear Calc 57.1 Estimated GFR > 60 Random Vancomycin 10.5 L Microbiology Microbiology Results: Microbiology 08/06/22 08:46 Blood Culture - Preliminary Blood - Venous No growth after 48 hours. 08/06/22 08:46 Blood Culture - Preliminary Blood - Venous No growth after 48 hours. Assessment and Plan (1) Gram-positive bacteremia: Status: Acute (2) Sepsis: Status: Acute Plan This is a 76-year-old male with history of atrial fibrillation on Eliquis, es sential hypertension, dementia with behavioral disturbances , BPH who was asked to come back to the ER for evaluation of Gram-positive cocci in clusters. #. 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 dementia with behavioral disturbances: Continue mood stabilizers. Maintain sleep-wake cycle #. atrial fibrillation on Eliquis: Rate controlled on cardizem #. BPH: On finasteride and Flomax #. essential hypertension: hold home antihypertensives in the setting of sepsis. Restart as appropriate #. chronic normocytic anemia: Hemoglobin above transfusion threshold DVT prophylaxis: On Eliquis Full Code Cardiac diet need for inpatietn:IV Abx for bacteremia, awaiting final cultures Time Spent With Patient Time: Total time managing care of this patient today ____ minutes. Quality Stroke Does the patient have a stroke diagnosis?: No VTE Prior VTE?: No VTE Risk Level:: Medical - moderate - high VTE Device Contraindication: Treatment Not Indicated VTE Drug Contraindication: N/A - Med Ordered
--- NOTE | 2022-08-09 09:31 | HE.PHANOTE ---
NO SIGNIFICANT RENAL CHANGES, CONT SAME DOSE
[2022-08-09 10:59] VITALS: BP 115/75; PULSE 80; RESP 17; TEMP 36.7; O2SAT 98
[2022-08-09 15:21] VITALS: BP 120/88; PULSE 78; RESP 17; TEMP 36.9; O2SAT 98
[2022-08-09 20:00] VITALS: BP 121/55; PULSE 72; RESP 18; TEMP 36.7; O2SAT 98
[2022-08-09] MEDS: cefTRIAXone sodium 1 GM in 0.9 % Sodium Chloride 50 ML IV (21:02)
[2022-08-09] MEDS: Mirtazapine 15 MG TABLET PO (21:03)
[2022-08-09] MEDS: vancomycin HCL 1,250 MG in 0.9 % Sodium Chloride 250 ML 166.67 MG IV (21:37)
[2022-08-09 23:47] VITALS: BP 114/72; PULSE 66; RESP 18; TEMP 36.8; O2SAT 98
[2022-08-10 04:00] VITALS: BP 120/70; PULSE 74; RESP 20; TEMP 36.8
[2022-08-10 07:34] VITALS: BP 118/80; PULSE 65; RESP 12; TEMP 37.1; O2SAT 98
[2022-08-10] MEDS: Tamsulosin HCL 0.4 MG CAPSULE PO (07:42)
[2022-08-10] MEDS: 0.9 % Sodium Chloride Flush 3 ML SYRINGE IVFLUSH ×2 (07:42→17:17)
[2022-08-10] MEDS: Cyanocobalamin (Vitamin B-12) 1,000 MCG TABLET 1000 MCG PO (07:42)
[2022-08-10] MEDS: Thiamine HCL 100 MG TABLET PO (07:42)
[2022-08-10] MEDS: Apixaban 2.5 MG TABLET PO ×2 (07:42→21:03)
[2022-08-10] MEDS: Famotidine 20 MG TABLET PO ×2 (07:42→21:04)
[2022-08-10] MEDS: dilTIAZem HCL CD 120 MG CAP.ER.DEG PO (07:43)
[2022-08-10] MEDS: Finasteride 5 MG TABLET PO (07:43)
[2022-08-10 08:02] LABS: Creatinine Clr Calc Pharmacy 58.7; Estimated Glomerular Filt Rate > 60
--- NOTE | 2022-08-10 11:55 | MHC.CLN ---
F/U PO INTAKE 75-100% DIET RX: CARDIAC-APPROPRIATE PT RECEIVING ENSURE BID TO INCREASE KCALS SUPP TO PROVIDE 700KCALS, 40G PROTEIN MONITOR PO INTAKE CLOSELY
[2022-08-10 12:14] LABS: COVID-19 Test Negative (Negative); IDNOW Serial# 16C4AD1C
--- NOTE | 2022-08-10 12:43 | HO.PM.IMPN ---
Subjective Subjective Date of Service: 08/10/22 Interval History: f/u on sepsis and bacteremia interval history:no new issues, baseline confusion Physical Exam Vital Signs: Vital Signs: Last Vital Signs Temp 98.8 F 08/10/22 07:34 Pulse 65 08/10/22 07:34 Resp 12 08/10/22 07:34 BP 118/80 08/10/22 07:34 Pulse Ox 98 08/10/22 07:34 O2 Del Method 08/10/22 07:34 BMI result Body Mass Index 18.5 Const: Other: General: AO X1 , no acute distress Resp: CTA bilateral CVS: S1,S2,RRR GI: +BS, NT, no distention Skin: No rash Neuro: motor grossly intact Psych: appropriate affect Objective Data Active Medications Acetaminophen (Acetaminophen 325 Mg Tablet) 650 mg PO Q6H PRN PRN Reason: Pain, Mild (Pain Scale 1-3) Last Admin: 08/07/22 20:27 Dose: 650 mg Documented By: GEOVANNA Apixaban (Apixaban 2.5 Mg Tablet) 2.5 mg PO BID [facility] Last Admin: 08/10/22 07:42 Dose: 2.5 mg Documented By: NAOMI Cyanocobalamin (Cyanocobalamin (Vitamin B-12) 1,000 Mcg Tablet) 1,000 mcg PO DAILY [facility] Last Admin: 08/10/22 07:42 Dose: 1,000 mcg Documented By: NAOMI Diltiazem HCl (Diltiazem Hcl Cd 120 Mg Cap.Er.Deg) 120 mg PO DAILY [facility]; Protocol Last Admin: 08/10/22 07:43 Dose: 120 mg Documented By: NAOMI Famotidine (Famotidine 20 Mg Tablet) 20 mg PO BID [facility] Last Admin: 08/10/22 07:42 Dose: 20 mg Documented By: NAOMI Finasteride (Finasteride 5 Mg Tablet) 5 mg PO DAILY [facility] Last Admin: 08/10/22 07:43 Dose: 5 mg Documented By: NAOMI Ceftriaxone Sodium 1 gm/ (Sodium Chloride) 50 mls @ 100 mls/hr IV Q24H [facility] Last Infusion: 08/09/22 21:37 Dose: 0 mls/hr Documented By: ANTOIC Vancomycin HCl 1,250 mg/ (Sodium Chloride) 250 mls @ 166.667 mls/hr IV Q24H [facility] Last Infusion: 08/09/22 23:17 Dose: 0 mls/hr Documented By: ANTGENESIS Melatonin (Melatonin 3 Mg Tablet) 6 mg PO BEDTIME PRN PRN Reason: Insomnia Last Admin: 08/06/22 20:22 Dose: 6 mg Documented By: DESROMauricio Mirtazapine (Mirtazapine 15 Mg Tablet) 15 mg PO BEDTIME [facility] Last Admin: 08/09/22 21:03 Dose: 15 mg Documented By: ANTGENESIS Ondansetron HCl (Ondansetron Hcl 4 Mg/2 Ml Vial) 4 mg IVPUSH Q8H PRN PRN Reason: Nausea and Vomiting Pharmacy Consult (Consult Rx Perform Med Rec) 1 each MISCELLANE ONCE PRN PRN Reason: Consult order Pharmacy Consult (Consult Rx Vancomycin Dosing) 1 each MISCELLANE DAILY PRN PRN Reason: Consult order Sodium Chloride (0.9 % Sodium Chloride Flush 3 Ml Syringe) 3 ml IVFLUSH QSHIFT [facility] Last Admin: 08/10/22 07:42 Dose: 3 ml Documented By: NAOMI Tamsulosin HCl (Tamsulosin Hcl 0.4 Mg Capsule) 0.4 mg PO DAILY [facility] Last Admin: 08/10/22 07:42 Dose: 0.4 mg Documented By: NAOMI Thiamine HCl (Thiamine Hcl 100 Mg Tablet) 100 mg PO DAILY [facility] Last Admin: 08/10/22 07:42 Dose: 100 mg Documented By: NAOMI Labs 08/04/22 07:01 08/10/22 06:37 Labs: Laboratory Results - last 24 hr 08/10/22 08/10/22 06:37 11:25 Estim Creat Clear Calc 58.7 Estimated GFR > 60 COVID-19 (CROW) Negative COVID-19 Clin Com See Note Assessment and Plan (1) Gram-positive bacteremia: Status: Acute (2) Sepsis: Status: Acute Plan This is a 76-year-old male with history of atrial fibrillation on Eliquis, essential hypertension, dementia with behavioral disturbances , BPH who was asked to come back to the ER for evaluation of Gram-positive cocci in clusters. #. Sepsis d/t MRSA bacteremia, source unclear 10/06 + -id following -echo 08/04/22, no vegetation -will need fdc Abx -repeat Cx negative at 48 hours -PICC line tomorrow, for 4 to 6 weeks of vanco #. dementia with behavioral disturbances: Continue mood stabilizers. Maintain sleep-wake cycle #. atrial fibrillation on Eliquis: Rate controlled on cardizem #. BPH: On finasteride and Flomax #. essential hypertension: hold home antihypertensives in the setting of sepsis. Restart as appropriate #. chronic normocytic anemia: Hemoglobin above transfusion threshold DVT prophylaxis: On Eliquis Full Code Cardiac diet need for inpatietn:IV Abx for bacteremia, awaiting picc line for dc Time Spent With Patient Time: Total time managing care of this patient today ____ minutes. Quality Stroke Does the patient have a stroke diagnosis?: No VTE Prior VTE?: No VTE Risk Level:: Medical - moderate - high VTE Device Contraindication: Treatment Not Indicated VTE Drug Contraindication: N/A - Med Ordered
--- NOTE | 2022-08-10 13:11 | MHC.CM.PN ---
Per MD rounds discharge planned for today after PICC insertion. Per MD IR will not be able to Insert the PICC today. Noel May has been notofied that discharge is on hold today; but will likely discharge tomorrow back to the facility. He will transport via BLS.
[2022-08-10 15:36] VITALS: BP 110/71; PULSE 85; RESP 19; TEMP 36.7; O2SAT 98
[2022-08-10 19:58] LABS: Vancomycin Random 14.5 mcg/mL (15-20)
[2022-08-10 20:00] VITALS: BP 96/77; PULSE 65; RESP 19; TEMP 36.4; O2SAT 97
[2022-08-10] MEDS: cefTRIAXone sodium 1 GM in 0.9 % Sodium Chloride 50 ML IV (20:58)
[2022-08-10] MEDS: Mirtazapine 15 MG TABLET PO (21:04)
[2022-08-10] MEDS: vancomycin HCL 1,250 MG in 0.9 % Sodium Chloride 250 ML 166.67 MG IV (22:18)
[2022-08-11] MEDS: 0.9 % Sodium Chloride Flush 3 ML SYRINGE IVFLUSH ×3 (00:39→17:25)
[2022-08-11 03:40] VITALS: BP 96/54; PULSE 84; RESP 20; TEMP 37.1; O2SAT 94
[2022-08-11 08:00] VITALS: BP 128/75; PULSE 70; RESP 20; TEMP 36.9; O2SAT 98
[2022-08-11 08:13] LABS: Estimated Glomerular Filt Rate > 60
[2022-08-11] MEDS: Thiamine HCL 100 MG TABLET PO (08:22)
[2022-08-11] MEDS: Finasteride 5 MG TABLET PO (08:22)
[2022-08-11] MEDS: Apixaban 2.5 MG TABLET PO ×2 (08:22→19:57)
[2022-08-11] MEDS: Cyanocobalamin (Vitamin B-12) 1,000 MCG TABLET 1000 MCG PO (08:22)
[2022-08-11] MEDS: dilTIAZem HCL CD 120 MG CAP.ER.DEG PO (08:22)
[2022-08-11] MEDS: Tamsulosin HCL 0.4 MG CAPSULE PO (08:22)
[2022-08-11] MEDS: Famotidine 20 MG TABLET PO ×2 (08:22→19:58)
--- NOTE | 2022-08-11 12:29 | P.PICC_ITS ---
PICC Line Insertion NPICC Diagnosis: Sepsis/UTI Indication: Nursing Home antibiotics needed Pertinent Labs: reviewed Technique: Following informed consent including risks, benefits and alternatives and using sterile technique including cap and mask, sterile gown, glove and drape, the left arm was prepped and draped in the usual sterile fashion of full barrier technique with CHG. Following completion of [place] Protocol the skin and soft tissues were anesthetized with 1% Lidocaine plain. Using ultrasound guidance, left brachial vein access was obtained twice by Sarika Odom RN, but unable to pass guidewire. Left brachial vein was then accessed by Jordin Kohler RN. Over an 0.018 wire through peel-away sheath, a 4FR single lumen PASV PICC line was positioned. Catheter length is 42 CM internal length, 0 CM external length, for a total trimmed length of 42 CM. The procedure was performed in S272. Tip verification was performed by Félix Woodruff with Sherlock 3CG. Tip located in SVC. Ultrasound was used to document vein patency and for needle entry. A formal ultrasound picture and cardiac rhythm strip was recorded. [employer] has released the line for use and it is currently dressed with a StatLock, Tegaderm, and CHG disc. Verification has been performed for blood return and line patency. (Patient arrived at 0940 at which time it was determined that patient was confused and unable to sign legal consent. Pt's POA Alecia Isabel [phone] was unreachable X 2 attempts and her voicemail box was full, so message couldn't be left. Dr Rodríguez and Gareth Browning were notified and legal consent was signed for patient by Dr Rodríguez.) Arm Circumference: 22 CM Equipment: BARD Power PICC Solo Catheter Type: 4FR Single lumen PASV PICC Lot #: [id number]
[2022-08-11 13:12] VITALS: BP 117/72; PULSE 89; RESP 18; TEMP 526; TEMP 978.8; O2SAT 96
[2022-08-11 16:00] VITALS: BP 139/75; PULSE 78; RESP 18; TEMP 36.9; O2SAT 96
--- NOTE | 2022-08-11 16:19 | PM.IDPN ---
Subjective Subjective Date of Service: 08/11/22 Critical Care Time (minutes): 15 Comment: He remains alert and confused. There are no complaints Objective Data Labs 08/04/22 07:01 08/11/22 07:14 Labs: Laboratory Results - last 24 hr 08/10/22 08/11/22 19:30 07:14 Creatinine 0.79 Estim Creat Clear Calc 55.0 Estimated GFR > 60 Random Vancomycin 14.5 L Microbiology Microbiology Results: Microbiology 08/06/22 08:46 Blood - Venous Blood Culture - Final No growth after 5 days. 08/06/22 08:46 Blood - Venous Blood Culture - Final No growth after 5 days. 08/03/22 20:24 Blood - Venous Blood Culture - Final Methicillin Res Staph Aureus 08/03/22 20:24 Blood - Venous Blood Culture - Final Methicillin Res Staph Aureus Physical Exam Vital Signs: Vital Signs: Last Vital Signs Temp 978.8 F H 08/11/22 13:12 Pulse 89 08/11/22 13:12 Resp 18 08/11/22 13:12 BP 117/72 08/11/22 13:12 Pulse Ox 96 08/11/22 13:12 O2 Del Method 08/11/22 13:12 BMI result Body Mass Index 18.5 Const: General: cooperative Eyes: General: appearance normal, both eyes and all related structures Resp: Effort & Inspection: normal respiratory effort Cardio: Rate: regular rate Rhythm: regular rhythm GI: Palpation (GI): nontender Assessment and Plan Assessment and plan (1) Sepsis: Problem details: Blood cultures have cleared from MRSA. He has [place] TTE unremarkable Would stop IV Vancomycin on 09/02. I stopped Ceftriaxone today. Status: Acute (2) Gram-positive bacteremia: Status: Acute (3) Acute UTI: Status: Acute Time Spent With Patient Time: Total time managing care of this patient today ____ minutes.
--- NOTE | 2022-08-11 16:23 | MHC.CM.PN ---
Discharge is on hold today. The patient needs to receive his ABX via new PICC. Spoke with Harmony Magdaleno from [facility]. She is aware that the discharge is delayed. Patient will discharge tomorrow AM.
[2022-08-11] MEDS: vancomycin HCL 1,250 MG in 0.9 % Sodium Chloride 250 ML 166.67 MG IV (17:25)
--- NOTE | 2022-08-11 17:53 | P.PNIM_ITS ---
Subjective Subjective Date of Service: 08/11/22 Interval History: f/u on sepsis and bacteremia Review of Systems no no fever or chills or nausea or vomiting.?baseline confusion Physical Exam Vital Signs: Vital Signs: Last Vital Signs Temp 978.8 F H 08/11/22 13:12 Pulse 89 08/11/22 13:12 Resp 18 08/11/22 13:12 BP 117/72 08/11/22 13:12 Pulse Ox 96 08/11/22 13:12 O2 Del Method 08/11/22 13:12 BMI result Body Mass Index 18.5 General: AO X1 , no acute distress Resp:? CTA bilateral CVS: S1,S2,RRR GI: +BS, NT, no distention Skin: No rash Neuro:? motor grossly intact Psych: appropriate affect ? Objective Data Active Medications Acetaminophen (Acetaminophen 325 Mg Tablet) 650 mg PO Q6H PRN PRN Reason: Pain, Mild (Pain Scale 1-3) Last Admin: 08/07/22 20:27 Dose: 650 mg Documented By: GEOVANNA Apixaban (Apixaban 2.5 Mg Tablet) 2.5 mg PO BID [facility] Last Admin: 08/11/22 08:22 Dose: 2.5 mg Documented By: NAOMI Cyanocobalamin (Cyanocobalamin (Vitamin B-12) 1,000 Mcg Tablet) 1,000 mcg PO DAILY [facility] Last Admin: 08/11/22 08:22 Dose: 1,000 mcg Documented By: NAOMI Diltiazem HCl (Diltiazem Hcl Cd 120 Mg Cap.Er.Deg) 120 mg PO DAILY [facility]; Protocol Last Admin: 08/11/22 08:22 Dose: 120 mg Documented By: NAOMI Famotidine (Famotidine 20 Mg Tablet) 20 mg PO BID [facility] Last Admin: 08/11/22 08:22 Dose: 20 mg Documented By: NAOMI Finasteride (Finasteride 5 Mg Tablet) 5 mg PO DAILY [facility] Last Admin: 08/11/22 08:22 Dose: 5 mg Documented By: NAOMI Vancomycin HCl 1,250 mg/ (Sodium Chloride) 250 mls @ 166.667 mls/hr IV Q24H [facility] Last Admin: 08/11/22 17:25 Dose: 166.67 mls/hr Documented By: NAOMI Melatonin (Melatonin 3 Mg Tablet) 6 mg PO BEDTIME PRN PRN Reason: Insomnia Last Admin: 08/06/22 20:22 Dose: 6 mg Documented By: NEENA Mirtazapine (Mirtazapine 15 Mg Tablet) 15 mg PO BEDTIME [facility] Last Admin: 08/10/22 21:04 Dose: 15 mg Documented By: ARIANA Ondansetron HCl (Ondansetron Hcl 4 Mg/2 Ml Vial) 4 mg IVPUSH Q8H PRN PRN Reason: Nausea and Vomiting Pharmacy Consult (Consult Rx Perform Med Rec) 1 each MISCELLANE ONCE PRN PRN Reason: Consult order Pharmacy Consult (Consult Rx Vancomycin Dosing) 1 each MISCELLANE DAILY PRN PRN Reason: Consult order Sodium Chloride (0.9 % Sodium Chloride Flush 3 Ml Syringe) 3 ml IVFLUSH QSHIFT [facility] Last Admin: 08/11/22 17:25 Dose: 3 ml Documented By: NAOMI Sodium Chloride (0.9 % Sodium Chloride Flush 10 Ml Syringe) 5 ml IVFLUSH TID [facility] Last Admin: 08/11/22 17:25 Dose: Not Given Documented By: NAOMI Non-Admin Reason: Previously Administered Tamsulosin HCl (Tamsulosin Hcl 0.4 Mg Capsule) 0.4 mg PO DAILY [facility] Last Admin: 08/11/22 08:22 Dose: 0.4 mg Documented By: NAOMI Thiamine HCl (Thiamine Hcl 100 Mg Tablet) 100 mg PO DAILY [facility] Last Admin: 08/11/22 08:22 Dose: 100 mg Documented By: NAOMI Labs 08/04/22 07:01 08/11/22 07:14 Labs: Laboratory Results - last 24 hr 08/10/22 08/11/22 19:30 07:14 Estim Creat Clear Calc 55.0 Estimated GFR > 60 Random Vancomycin 14.5 L Microbiology Microbiology Results: Microbiology 08/06/22 08:46 Blood Culture - Final Blood - Venous No growth after 5 days. 08/06/22 08:46 Blood Culture - Final Blood - Venous No growth after 5 days. Assessment and Plan (1) Sepsis: Status: Acute (2) Gram-positive bacteremia: Status: Acute (3) Acute UTI: Status: Acute Plan 76-year-old male with history of atrial fibrillation on Eliquis, essential hypertension, dementia with behavioral disturbances , BPH who was asked to come back to the ER for evaluation of Gram-positive cocci in clusters. ?#. ? Sepsis d/t MRSA bacteremia, source unclear 10/06 + -id following-patient has possible UTI concern -considering pyuria, nitrate positive, urine culture grew also mrsa. 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 Patient needs to get IV dose of antibiotics via PICC line before discharge . ?#. dementia with behavioral disturbances: Continue mood stabilizers.? Maintain sleep-wake cycle ?#. atrial fibrillation on Eliquis: Rate controlled on cardizem ?#. BPH:? On finasteride and Flomax ?#. essential hypertension:? hold home antihypertensives in the setting of sepsis.? Restart as appropriate ?#. chronic normocytic anemia:? Hemoglobin around 9-10 range no sign for bleedin ?DVT prophylaxis: On Eliquis ?need for inpatietn: late to go to NH for today because antibiotics needs to given through picc before discharge,Awaiting placement. Time Spent With Patient Time: Total time managing care of this patient today ____ minutes. Quality Stroke Does the patient have a stroke diagnosis?: No VTE Prior VTE?: No VTE Risk Level:: Medical - moderate - high VTE Device Contraindication: Treatment Not Indicated VTE Drug Contraindication: N/A - Med Ordered
[2022-08-11 19:56] VITALS: BP 139/75; PULSE 78; RESP 18; TEMP 36.9; O2SAT 6
[2022-08-11] MEDS: Mirtazapine 15 MG TABLET PO (19:58)
[2022-08-11] MEDS: 0.9 % Sodium Chloride Flush 10 ML SYRINGE 5 ML IVFLUSH (21:27)
[2022-08-12 04:00] VITALS: BP 118/72; PULSE 76; RESP 20; TEMP 36.6; O2SAT 96
[2022-08-12] MEDS: 0.9 % Sodium Chloride Flush 3 ML SYRINGE IVFLUSH ×2 (05:26→11:05)
[2022-08-12 07:27] VITALS: BP 114/71; PULSE 70; RESP 17; TEMP 36.7; O2SAT 98
--- NOTE | 2022-08-12 08:08 | PM.DS ---
DS: Providers Provider Date of Service: 08/12/22 Date of admission: 08/03/22 22:18 Date of discharge: 08/12/22 Primary care physician: Rajesh Son MD Consults: 08/04/22 13:26 Consult to Infectious Diseases Routine Consulting Provider: Lexii Resendiz Reason for consultation: bacteremia Has provider been notified: Yes Attending physician on discharge: Claude Rodríguez Discharging clinician: Claude Rodríguez DS: Diagnosis Discharge Diagnosis (1) Sepsis: Status: Acute (2) Gram-positive bacteremia: Status: Acute (3) Acute UTI: Status: Acute (4) MRSA bacteremia: Status: Acute DS: Summary Hospital Course Hospital Course: 76-year-old male with history of atrial fibrillation on Eliquis, essential hypertension, dementia with behavioral disturbances , BPH who was asked to come back to the ER for evaluation of Gram-positive cocci in clusters.? Patient was seen in the ER yesterday due to unwitnessed fall.? Urine was concerning for UTI and patient was discharged with Ceftin.? 2/2 blood culture bottles with Gram- positive cocci in clusters and patient was asked to come to the ER for further evaluation. patient is a poor historian and does not know why he is here.? He does not remember where he lives.? Unable to obtain any history from the patient.? History obtained from ER provider and chart review. Patient given broad-spectrum IV antibiotics in the ER, white count noted to be elevated. Hospital course: Patient was admitted for Sepsis d/t MRSA bacteremia-patient was started on broad-spectrum IV antibiotics, blood culture grew MRSA as well as urine culture and patient also has pyuria(possible urinary infection concern),urine cultures also grew mrsa : Repeat blood culture negative. echo: ef 55-60%,please see detailed report in imaging section. PICC line was placed and discussed with ID in detail again-recommended to continue vanco end date will be 09/02/22. Monitor vanco trough,CBC, BMP, LFTs Q weekly while on antibiotics. BPH:? On finasteride and Flomax, Consider discontinuing Moreau in next 24 hour and give voiding trial. plan: complete vanco course until09/02/22. Monitor vanco trough,CBC, BMP, LFTs Q weekly while on antibiotics. Consider discontinuing Moreau in next 24 hour and give voiding trial. Assessment and plan coordination time spent 50 minute. Time Spent with Patient Time attestation: Total time managing care of this patient today ____ minutes. Discharge coordination time: Greater than 30 minutes Quality: Safe Use of Opioids Does Pt have an Active Cancer Diagnosis on the Problem List?: No Quality: Stroke Does the patient have a stroke diagnosis?: No Physical Exam Vital Signs: Vital Signs: Last Vital Signs Temp 98.0 F 08/12/22 07:27 Pulse 70 08/12/22 07:27 Resp 17 08/12/22 07:27 BP 114/71 08/12/22 07:27 Pulse Ox 98 08/12/22 07:27 O2 Del Method 08/12/22 07:27 BMI result Body Mass Index 18.5 General: AO X1 , no acute distress Resp:? CTA bilateral CVS: S1,S2,RRR GI: +BS, NT, no distention Skin: No rash Neuro:? motor grossly intact Psych: appropriate affect DS: Data Data Completed and Pending Labs on day of discharge: Laboratory Results - last 24 hr 08/11/22 07:14 Creatinine 0.79 Estim Creat Clear Calc 55.0 Estimated GFR > 60 Imaging Chest x-ray: Radiologist's impression: ?CT/CT head/brain wo IV con IMPRESSION: No acute intracranial pathology. Chronic small vessel ischemic disease and volume loss. ?XR/XR shoulder RT min 2V IMPRESSION: No acute findings identified. Chronic appearing changes as noted above. ??XR/XR hip RT w PEL1V IMPRESSION: No acute findings identified. ? XR/XR chest 1V IMPRESSION: No acute cardiopulmonary findings. echo: Conclusions: - Normal left ventricular size, thickness, and systolic function. The visually estimated ejection fraction is between 55-60%.? ? ? - E/E prime ratio is between 8 and 15 consistent with? indeterminate filling pressures. ? - Normal right ventricular cavity size and systolic function.? ? - Normal aortic valve structure and function.? - Normal mitral valve structure and function.? - Normal tricuspid valve structure and function. ? - There is moderate dilatation of the sinuses of Valsalva? measuring 4.50 cm. ? Findings Left Ventricle Normal left ventricular size, thickness, and systolic function. The visually estimated ejection fraction is between 55-60%.? Regional wall motion abnormalities can not be excluded due to suboptimal endocardial definition. Abnormal diastolic function is noted.? Spectral Doppler is indicative of an impaired relaxation filling pattern.? E/E prime ratio is between 8 and 15 consistent with indeterminate filling pressures. Right Ventricle Normal right ventricular cavity size and systolic function. Atria The left atrium was not well visualized. Aortic Valve Normal aortic valve structure and function.? There is no aortic valve stenosis.? There is no aortic valve regurgitation. Mitral Valve Normal mitral valve structure and function.? There is no mitral valve regurgitation.? There is no mitral valve stenosis. Pulmonic Valve The pulmonic valve was not well visualized. Tricuspid Valve Normal tricuspid valve structure and function.? There is trace tricuspid valve regurgitation.? Tricuspid regurgitation envelope is inadequate for calculation of right ventricular systolic pressure.? Indeterminate right atrial pressure. Great Vessels The pulmonary artery was not well visualized.? There is moderate dilatation of the sinuses of Valsalva measuring 4.50 cm. Venous The inferior vena cava was not well visualized. Pericardium/Pleural There is no evidence of pericardial effusion. Discharge Plan Discharge Anticipated Discharge Date/Time: 08/11/22 13:21 Patient Disposition: Xfer [facility] Discharge Diagnosis: dementia with behavioral disturbances,Sepsis with gram-positive bacteremia, likely due to acute UTI,mrsa bacteremia Referrals: [facility] [Outside] - 1 Week Rajesh Son MD [Primary Care Provider] - 1 Week Discharge Medications: New vancomycin 1.25 gram recon soln 1 g IV Q24H Qty: 1 0RF Rx Instructions: end date 09/02/22 Continued cyanocobalamin (vitamin B-12) 1,000 mcg Tablet 1,000 mcg PO DAILY thiamine HCl (vitamin B1) 100 mg Tablet 100 mg PO DAILY famotidine 20 mg Tablet 20 mg PO BID tamsulosin [Flomax] 0.4 mg Capsule 0.4 mg PO DAILY diltiazem HCl 120 mg Capsule,Extended Release 24hr 120 mg PO DAILY mirtazapine 15 mg Tablet 15 mg PO BEDTIME finasteride 5 mg Tablet 5 mg PO DAILY Eliquis 2.5 mg Tablet 2.5 mg PO BID Discontinued cefuroxime axetil 250 mg tablet 250 mg PO BID Qty: 14 0RF Discharge Orders: Discharge Order (Routine); Ordered 08/12/22 Ordered By: Claude Rodríguez Diet: Advance to usual diet Activity on Discharge: As tolerated Stand Alone Forms: Patient Portal Discharge page Care Plan Goals: Patient was admitted for Sepsis d/t MRSA bacteremia-patient was started on broad-spectrum IV antibiotics, blood culture grew MRSA as well as urine culture and patient also has pyuria(possible urinary infection concern),urine cultures also grew mrsa : Repeat blood culture negative. echo: ef 55-60%,please see detailed report in imaging section. PICC line was placed and discussed with ID in detail again-recommended to continue vanco end date will be 09/02/22. Monitor CBC, BMP, LFTs Q weekly while on antibiotics. Health Concerns: As above. Plan of Treatment: As above. Assessment: As above.
[2022-08-12 08:45] LABS: Creatinine Clr Calc Pharmacy 54.3; Estimated Glomerular Filt Rate > 60
[2022-08-12] MEDS: Famotidine 20 MG TABLET PO (11:03)
[2022-08-12] MEDS: Finasteride 5 MG TABLET PO (11:03)
[2022-08-12] MEDS: dilTIAZem HCL CD 120 MG CAP.ER.DEG PO (11:03)
[2022-08-12] MEDS: Tamsulosin HCL 0.4 MG CAPSULE PO (11:04)
[2022-08-12] MEDS: Apixaban 2.5 MG TABLET PO (11:04)
[2022-08-12] MEDS: Cyanocobalamin (Vitamin B-12) 1,000 MCG TABLET 1000 MCG PO (11:05)
[2022-08-12] MEDS: 0.9 % Sodium Chloride Flush 10 ML SYRINGE 5 ML IVFLUSH (11:06)
[2022-08-12] MEDS: Thiamine HCL 100 MG TABLET PO (11:06)
--- NOTE | 2022-08-12 11:35 | MHC.CM.PN ---
Addendum entered by Camila Garcia 08/12/22 11:38: IMM 08/12/22 Original Note: Discharge today, returning to [facility] today. All discharge info has been sent to the facility. The negative covid test resulted 08/10/22 was accepted for dc today. BLS is booked for 1pm pick out hand at [facility]. Pt's guardian has been notified of discharge.
== END 2022-08-12 02:35 | disposition skilled nursing facility (03) | DRG 872 ==
LOC: HO.ED 20:24 → HO.EDOVER 22:23 → HO.IMC 08-04 11:19
PROVIDERS: Internal Medicine; Admitting Provider Student in an Organized Health Care Education/Training Program; Emergency Provider Internal Medicine; PCP Family Medicine; Visit Provider Internal Medicine
PROC: 02HV33Z Insertion of Infusion Device into Superior Vena Cava, Percutaneous Approach (ICD-10-PCS; principal; 2022-08-11 09:00)
DX: A41.02 Sepsis due to Methicillin resistant Staphylococcus aureus (principal); N39.0 Urinary tract infection, site not specified; I48.21 Permanent atrial fibrillation; E44.0 Moderate protein-calorie malnutrition; Z68.1 Body mass index [BMI] 19.9 or less, adult; F03.918 Unspecified dementia, unspecified severity, with other behavioral disturbance; N40.0 Benign prostatic hyperplasia without lower urinary tract symptoms; F03.90 Unspecified dementia, unspecified severity, without behavioral disturbance, psychotic disturbance, mood disturbance, and anxiety; I10 Essential (primary) hypertension; D64.9 Anemia, unspecified; Z96.0 Presence of urogenital implants; Z20.822 Contact with and (suspected) exposure to COVID-19; Z79.01 Long term (current) use of anticoagulants; Z79.899 Other long term (current) drug therapy
CPT/HCPCS: 36415; 36573; 70450; 71045; 72125; 73030; 73502; 80048; 80076; 80202; 81001; 82550; 82565; 83605; 83735; 84484; 85025; 87040; 87077; 87086; 87088; 87147; 87186; 87205; 87502; 87635; 93005; 93306; 99285; C1751; C1758; C1894; J0696; J2060; J3370; J3371

== ENCOUNTER 2022-09-14 05:48 | Outpatient (REF) | payer SELFPAY ==
[2022-09-14 05:40] LABS: MANUAL DIFF FLAG NO
[2022-09-14 06:12] LABS: Basophils Absolute Auto 0.1 X10*3/uL (0.0-0.2); Basophils Percent Auto 0.9 % (0-2); Eosinophils Absolute Auto 0.3 X10*3/uL (0.0-0.4); Hematocrit 29.5 % (42.0-52.0); Hemoglobin 9.1 g/dl (14.0-18.0); Imm Gran Abs Auto 0.01 X10*3/uL (0.00-0.03); Imm Gran Pct Auto 0.1 % (0.0-0.4); Lymphocytes Absolute Auto 1.9 X10*3/uL (1.2-4.9); Lymphocytes Percent Auto 28.4 % (20-40); Mean Corpuscular HGB Conc 30.8 g/dl (31.0-36.0); Mean Corpuscular Hemoglobin 26.8 pg (27.0-33.0); Mean Corpuscular Volume 86.8 fL (80.0-98.0); Mean Platelet Volume 9.3 fL (9.4-12.4); Monocytes Absolute Auto 0.6 X10*3/uL (0.1-1.2); Monocytes Percent Auto 8.1 % (2-11); Neutrophils Percent Auto 58.5 % (45-73); Platelet Count 401 X10*3/uL (160-400); Red Cell Distribution Width 13.4 % (11.0-16.0); White Blood Count 6.8 X10*3/uL (4.8-10.8)
[2022-09-14 06:40] LABS: Anion Gap 13 (12-20); Blood Urea Nitrogen 18 mg/dL (9-16); Calcium 8.5 mg/dL (8.4-10.2); Carbon Dioxide 27 mmol/L (22-29); Chloride 106 mmol/L (96-108); Estimated Glomerular Filt Rate > 60; Glucose Random 86 mg/dL (60-115); Potassium 4.1 mmol/L (3.3-5.1); Sodium 142 mmol/L (135-145)
== END 2022-09-14 05:49 | disposition home or self-care (01) ==
LOC: HO.MMNH3L 05:48
PROVIDERS: Visit Provider Family Medicine
DX: I10 Essential (primary) hypertension (principal); I48.91 Unspecified atrial fibrillation
CPT/HCPCS: 36415; 80048; 85025

== ENCOUNTER 2022-09-21 05:54 | Outpatient (REF) | payer MEDICARE, SELFPAY ==
[2022-09-21 05:46] LABS: MANUAL DIFF FLAG NO
[2022-09-21 06:18] LABS: Basophils Percent Auto 0.6 % (0-2); Eosinophils Absolute Auto 0.4 X10*3/uL (0.0-0.4); Hemoglobin 9.3 g/dl (14.0-18.0); Imm Gran Abs Auto 0.03 X10*3/uL (0.00-0.03); Imm Gran Pct Auto 0.4 % (0.0-0.4); Lymphocytes Absolute Auto 1.7 X10*3/uL (1.2-4.9); Lymphocytes Percent Auto 23.2 % (20-40); Mean Platelet Volume 9.3 fL (9.4-12.4); Monocytes Absolute Auto 0.7 X10*3/uL (0.1-1.2); Monocytes Percent Auto 9.2 % (2-11); Neutrophils Absolute Auto 4.4 x10*3/uL (2.0-8.3); Neutrophils Percent Auto 61.6 % (45-73); Platelet Count 338 X10*3/uL (160-400); Red Blood Count 3.45 X10*6/uL (4.60-5.80); Red Cell Distribution Width 13.9 % (11.0-16.0); White Blood Count 7.2 X10*3/uL (4.8-10.8)
[2022-09-21 07:17] LABS: Anion Gap 14 (12-20); Blood Urea Nitrogen 18 mg/dL (9-16); Calcium 8.7 mg/dL (8.4-10.2); Carbon Dioxide 25 mmol/L (22-29); Chloride 105 mmol/L (96-108); Estimated Glomerular Filt Rate > 60; Glucose Random 83 mg/dL (60-115); Potassium 3.9 mmol/L (3.3-5.1); Sodium 140 mmol/L (135-145)
== END 2022-09-21 05:55 | disposition home or self-care (01) ==
LOC: HO.MMNH3L 05:54
PROVIDERS: Visit Provider Family Medicine
DX: I10 Essential (primary) hypertension (principal); I48.91 Unspecified atrial fibrillation
CPT/HCPCS: 36415; 80048; 85025

== ENCOUNTER 2023-02-05 12:52 | Outpatient (REF) | payer MEDICARE, MEDICAID, SELFPAY ==
[2023-02-09 13:15] LABS: Appearance Urine Turbid; Bacteria Urine 4+ (None Seen); Color Urine Red; Glucose Urine UA 100 mg/dL (Negative); Hyaline Casts Urine >20 /LPF (0-2); Leukocyte Esterase Urine Large (3+) (Negative); Nitrite Urine Negative (Negative); Other Crystals Urine Present; PH >= 9.0 (5.0-9.0); RBC Urine >20 /HPF (0-2); Specific Gravity - Urine 1.015 (1.005-1.025); UMIC TRIGGER UA YES; Urine Blood Large (3+) (Negative); Urine Ketones Negative (Negative); Urine Protein 300 (3+) mg/dL (Neg-Trace); WBC Urine 21-50 /HPF (0-5)
== END 2023-02-05 12:53 | disposition home or self-care (01) ==
LOC: HO.MMNH3L 12:52
PROVIDERS: Visit Provider Family Medicine
DX: F03.90 Unspecified dementia, unspecified severity, without behavioral disturbance, psychotic disturbance, mood disturbance, and anxiety (principal); R82.90 Unspecified abnormal findings in urine
CPT/HCPCS: 81001; 87086; 87088; 87186

== ENCOUNTER 2023-02-08 05:58 | Outpatient (REF) | payer MEDICARE, MEDICAID, SELFPAY ==
[2023-02-08 05:55] LABS: MANUAL DIFF FLAG NO
[2023-02-08 06:06] LABS: Basophils Percent Auto 0.2 % (0-2); Eosinophils Absolute Auto 0.1 X10*3/uL (0.0-0.4); Eosinophils Percent Auto 1.1 % (0-4); Hematocrit 35.5 % (42.0-52.0); Hemoglobin 11.3 g/dl (14.0-18.0); Imm Gran Abs Auto 0.04 X10*3/uL (0.00-0.03); Imm Gran Pct Auto 0.3 % (0.0-0.4); Lymphocytes Absolute Auto 0.9 X10*3/uL (1.2-4.9); Lymphocytes Percent Auto 7.1 % (20-40); Mean Corpuscular HGB Conc 31.8 g/dl (31.0-36.0); Mean Corpuscular Hemoglobin 28.8 pg (27.0-33.0); Mean Corpuscular Volume 90.6 fL (80.0-98.0); Monocytes Absolute Auto 0.9 X10*3/uL (0.1-1.2); Neutrophils Absolute Auto 10.3 x10*3/uL (2.0-8.3); Neutrophils Percent Auto 84.3 % (45-73); Platelet Count 235 X10*3/uL (160-400); Red Blood Count 3.92 X10*6/uL (4.60-5.80); Red Cell Distribution Width 13.7 % (11.0-16.0); White Blood Count 12.2 X10*3/uL (4.8-10.8)
[2023-02-08 06:33] LABS: Anion Gap 15 (12-20); Blood Urea Nitrogen 23 mg/dL (9-16); Calcium 8.8 mg/dL (8.4-10.2); Carbon Dioxide 23 mmol/L (22-29); Chloride 109 mmol/L (96-108); Estimated Glomerular Filt Rate 60; Glucose Random 105 mg/dL (60-115); Potassium 3.6 mmol/L (3.3-5.1); Sodium 143 mmol/L (135-145)
== END 2023-02-08 05:59 | disposition home or self-care (01) ==
LOC: HO.MMNH3L 05:58
PROVIDERS: Visit Provider Family Medicine
DX: I10 Essential (primary) hypertension (principal); I48.91 Unspecified atrial fibrillation
CPT/HCPCS: 36415; 80048; 85025

== ENCOUNTER 2023-02-12 20:15 | Outpatient (REF) | payer MEDICARE, MEDICAID, SELFPAY | END 2023-02-12 20:16 | disposition home or self-care (01) | LOC: HO.MMNH3L 20:15 | PROVIDERS: Visit Provider Family Medicine | DX: R50.9 Fever, unspecified (principal) | CPT/HCPCS: 87070 ==

== ENCOUNTER 2023-02-18 03:21 | Inpatient (IN) | payer MEDICARE, MEDICAID, SELFPAY ==
[2023-02-18] VITALS (16 sets, daily range): BP systolic 91–142; BP diastolic 59–90; PULSE 52–119; RESP 14–19; TEMP 36.2–39.5; O2SAT 91–98; BMI 16.3
--- NOTE | ~2023-02-18 | XR_ITS ---
EXAMINATION: XR CHEST CLINICAL INFORMATION: Weakness. Rule out pneumonia. COMPARISON: 08/03/2022 TECHNIQUE: Frontal view of the chest was obtained. FINDINGS: Cardiac leads overlie the chest. The lungs are well expanded. There is no focal consolidation, edema, or effusion. No pneumothorax. The cardiomediastinal silhouette is within normal limits of size with a calcified aorta. No acute osseous abnormality. Degenerative changes at the right shoulder with evidence of chronic rotator cuff disease. XR/XR chest 1V IMPRESSION: No acute pulmonary disease.
--- NOTE | 2023-02-18 03:56 | ED_ITS ---
HPI - Male Genitourinary General Chief complaint: Urogenital-Male Stated complaint: ornelas issue Time Seen by Provider: 02/18/23 03:56 History of Present Illness HPI Narrative: 76-year-old male with history of atrial fibrillation on Eliquis, essential hypertension, dementia with behavioral disturbances , BPH, MRSA bacteremia secondary to MRSA in the urine (08/12/2022) who is currently residing at [facility] who was sent into the emergency department for evaluation of a non functioning Ornelas catheter. The patient has a chronic indwelling Ornelas catheter. Bladder scan revealed 100 cc of urine. The nurses deflated the balloon and reposition the Ornelas and the Ornelas to drain very cloudy appearing urine. Patient has dementia and lacks insight as to why he is here. Patient's vital signs revealed a temperature of 100.2 degrees F orally and 103.2 degrees rectally. He was also tachycardia with a heart rate of 108. Related Data Home Medications Medication Instructions Recorded Confirmed apixaban 2.5 mg tablet (Eliquis) 2.5 mg PO BID 08/03/22 08/03/22 cyanocobalamin (vitamin B-12) 1,000 mcg PO DAILY 08/03/22 08/03/22 1,000 mcg tablet diltiazem HCl 120 mg 120 mg PO DAILY 08/03/22 08/03/22 capsule,extended release 24 hr famotidine 20 mg tablet 20 mg PO BID 08/03/22 08/03/22 finasteride 5 mg tablet 5 mg PO DAILY 08/03/22 08/03/22 mirtazapine 15 mg tablet 15 mg PO BEDTIME 08/03/22 08/03/22 tamsulosin 0.4 mg capsule (Flomax) 0.4 mg PO DAILY 08/03/22 08/03/22 thiamine HCl (vitamin B1) 100 mg 100 mg PO DAILY 08/03/22 08/03/22 tablet Previous Rx's Medication Instructions Recorded vancomycin 1.25 gram intravenous 1 g IV Q24H #1 ea 08/11/22 solution Allergies Allergy/AdvReac Type Severity Reaction Status Date / Time No Known Allergies Allergy Verified 01/19/22 06:22 Review of Systems Review of Systems: Yes all other systems are reviewed and are negative [facility] Past Medical History [facility] Narrative: Past medical history: Polyarthritis, dementia, atrial fibrillation, 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 Social history: Patient is a resident of [facility]. 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 Social History Social History Alcohol intake: never Patient Tobacco Use Status: Tobacco use Unknown Smoked in Last 30 Days: No Use of substances other than those prescribed or required for medical reasons: No Advance Directives: No Advance Directives Information Provided: No service: No Current occupational status: disabled Physical Exam Vital Signs: Vital Signs: Last Vital Signs Temp 100.2 F 02/18/23 07:04 Pulse 85 02/18/23 07:04 Resp 15 02/18/23 07:04 BP 98/64 02/18/23 07:04 Pulse Ox 95 02/18/23 07:04 O2 Del Method Room Air 02/18/23 07:04 BMI result Body Mass Index 16.3 Vital signs revealed elevated heart rate of 101, rectal temperature 103.2 degrees degrees F Exam: General: Awake, alert in no distress, patient oriented to person, does not answer questions appropriately and lacks insight as to why he is here. Patient is very thin, BMI is 16.3 Head: Normocephalic, atraumatic EENT: PERRL, Lids normal, sclera normal, conjunctiva normal, nose normal , ears normal, throat without erythema or exudates Neck: Supple, no adenopathy, trachea midline and nontender Lung: breath sounds symmetric, no wheezing, rales or rhonchi Chest: symmetric movement, nontender Heart: regular rate and rhythm, normal S1, S2 no murmurs or rubs Abdomen: soft, non-tender, nondistended, normal bowel sounds : Chronic indwelling Ornelas Back: no vertebral tenderness, no CVAT Extremities: no deformities, moves all extremities symmetrically Skin: no rashes, no lesion, normal color and warmth Neuro: Awake, alert, oriented to person only, patient does not follow commands or answer questions appropriately Psych: Cooperative Medications Administered Discontinued Medications Generic Name Dose Route Start Last Admin Trade Name Freq PRN Reason Stop Dose Admin Acetaminophen 975 mg 08/17/23 05:15 02/18/23 05:30 Acetaminophen 325 Mg Tablet PO 02/18/23 05:16 975 mg ONCE STA Administration Sodium Chloride 1,416 mls @ 1,416 mls/hr 02/18/23 03:59 02/18/23 06:15 Ns 30 ml/kg infuse over 1 hr (1416 ml) 02/18/23 04:58 Infused IV Infusion .Q1H STA Ceftriaxone Sodium 1 gm/ 50 mls @ 100 mls/hr 02/18/23 03:59 02/18/23 05:05 Sodium Chloride IV 02/18/23 04:28 Infused ONCE ONE Infusion Vancomycin HCl 1,250 mg/ 250 mls @ 166.667 mls/hr 02/18/23 04:15 02/18/23 05:24 Sodium Chloride IV 02/18/23 05:44 166.67 mls/hr ONCE ONE Administration Medical Decision Making Medical Decision Making MDM Narrative: 76-year-old male with history of atrial fibrillation on Eliquis, essential hypertension, dementia with behavioral disturbances , BPH, MRSA bacteremia secondary to MRSA in the urine (08/12/2022) sent to the emergency department from his nursing facility for evaluation of nonfunctioning Ornelas catheter. Patient was found to have a rectal temperature of a 103 degrees F, elevated heart rate of 108. Bladder scan revealed 800 cc of urine. Nurses were able to readjust the Ornelas catheter and the catheter drain cloudy urine. I ordered the following tests on the patient: CBC, CMP, lipase, lactic acid, blood cultures x2, PT/INR PTT, COVID-19, chest x-ray one view. I ordered IV insertion, cardiac monitoring and O2 saturation monitoring. Patient was also ordered to get 30 cc/kilogram normal saline bolus, vancomycin 1 g IV and ceftriaxone 1 g IV. 0404: Patient was made a sepsis alert. 0707: The patient's laboratory evaluation did reveal an elevated white blood count of [place] [address], normal lactic acid and positive urinalysis microscopic consistent with urinary tract infection. Chest x-ray was unremarkable pain. 0715: I will discuss the patient's presentation over tiger text with the covering hospitalist, Dr. Law and the patient was accepted to the hospital service. Differential Diagnosis Differential Diagnoses: The differential diagnosis associated with the presentation includes 0404: Differential diagnosis includes but is not limited to pneumonia, urinary tract infection, electrolyte abnormality, anemia, Admission/Observation Consideration of admission/observation: Escalation of care including admission/observation considered Consult Healthcare Provider Management of the patient was discussed with: Hospitalist Lab Data MDM Lab Attestation statement: I reviewed the patient's lab results. My independent interpretation patient's laboratory evaluation as follows: Elevated WBC 14938. Elevated sodium 146 chloride elevated 111 BUN and creatinin e elevated 27 and 1.38. Urinalysis was positive for blood and leukocyte esterase. Microscopic revealed greater than 20 RBCs, greater than 50 WBCs and 4+ bacteria. Lactic acid was normal 1.4. 02/18/23 04:17 02/18/23 04:17 Labs: Lab Results 02/18/23 02/18/23 02/18/23 Range/Units 04:17 04:17 04:17 WBC 16.5 H (4.8-10.8) X10*3/uL RBC 4.23 L (4.60-5.80) X10*6/uL Hgb 12.5 L (14.0-18.0) g/dl Hct 38.6 L (42.0-52.0) % MCV 91.3 (80.0-98.0) fL MCH 29.6 (27.0-33.0) pg MCHC 32.4 (31.0-36.0) g/dl RDW 13.9 (11.0-16.0) % Plt Count 282 (160-400) X10*3/uL MPV 9.8 (9.4-12.4) fL Immature Gran % (Auto) 0.4 (0.0-0.4) % Neut % (Auto) 91.6 H (45-73) % Lymph % (Auto) 3.2 L (20-40) % [place] % (Auto) 4.6 (2-11) % Eos % (Auto) 0.0 (0-4) % Baso % (Auto) 0.2 (0-2) % Lymph # (Auto) 0.5 L (1.2-4.9) X10*3/uL [place] # (Auto) 0.8 (0.1-1.2) X10*3/uL Eos # (Auto) 0.0 (0.0-0.4) X10*3/uL Baso # (Auto) 0.0 (0.0-0.2) X10*3/uL Abs Immat Gran (auto) 0.06 H (0.00-0.03) X10*3/uL Absolute Neuts (auto) 15.1 H (2.0-8.3) x10*3/uL Absolute Nucleated RBC 0.000 (0.0-0.012) X10*3/uL Nucleated RBC % (auto) 0.0 (0.0-0.2) /100WBC Smear Tech's Comments VERIFIED PT 15.1 H (11.1-13.3) SEC INR 1.2 H (0.9-1.1) APTT 31.2 (26.0-36.4) SEC Sodium 146 H (135-145) mmol/L Potassium 3.4 (3.3-5.1) mmol/L Chloride 111 H (96-108) mmol/L Carbon Dioxide 25 (22-29) mmol/L Anion Gap 13 (12-20) BUN 27 H (9-16) mg/dL Creatinine 1.38 (0.5-1.4) mg/dL Estim Creat Clear Calc 29.9 Estimated GFR 50 Random Glucose 106 (60-115) mg/dL Lactic Acid (0.5-2.0) mmol/L Calcium 9.7 D (8.4-10.2) mg/dL Total Bilirubin 0.8 (0.0-1.0) mg/dL AST 14 (5-37) U/L ALT 13 (0-40) U/L Alkaline Phosphatase 74 (39-117) U/L Total Protein 7.6 (6.5-8.0) g/dL Albumin 4.0 (3.5-5.0) g/dL Lipase 18 (8-78) U/L Urine Color Urine Appearance Urine pH (5.0-9.0) Ur Specific [place] (1.005-1.025) Urine Protein (Neg-Trace) mg/dL Urine Glucose (UA) (Negative) mg/dL Urine Ketones (Negative) mg/dL Urine Blood (Negative) Urine Nitrite (Negative) Ur Leukocyte Esterase (Negative) Urine RBC (0-2) /HPF Urine WBC (0-5) /HPF Ur Squamous Epith Cells (0-2) /HPF Urine Bacteria (None Seen) Hyaline Casts (0-2) /LPF COVID-19 (CROW) (Negative) COVID-19 Clin Com 02/18/23 02/18/23 02/18/23 Range/Units 04:17 04:17 04:24 WBC (4.8-10.8) X10*3/uL RBC (4.60-5.80) X10*6/uL Hgb (14.0-18.0) g/dl Hct (42.0-52.0) % MCV (80.0-98.0) fL MCH (27.0-33.0) pg MCHC (31.0-36.0) g/dl RDW (11.0-16.0) % Plt Count (160-400) X10*3/uL MPV (9.4-12.4) fL Immature Gran % (Auto) (0.0-0.4) % Neut % (Auto) (45-73) % Lymph % (Auto) (20-40) % [place] % (Auto) (2-11) % Eos % (Auto) (0-4) % Baso % (Auto) (0-2) % Lymph # (Auto) (1.2-4.9) X10*3/uL [place] # (Auto) (0.1-1.2) X10*3/uL Eos # (Auto) (0.0-0.4) X10*3/uL Baso # (Auto) (0.0-0.2) X10*3/uL Abs Immat Gran (auto) (0.00-0.03) X10*3/uL Absolute Neuts (auto) (2.0-8.3) x10*3/uL Absolute Nucleated RBC (0.0-0.012) X10*3/uL Nucleated RBC % (auto) (0.0-0.2) /100WBC Smear Tech's Comments PT (11.1-13.3) SEC INR (0.9-1.1) APTT (26.0-36.4) SEC Sodium (135-145) mmol/L Potassium (3.3-5.1) mmol/L Chloride (96-108) mmol/L Carbon Dioxide (22-29) mmol/L Anion Gap (12-20) BUN (9-16) mg/dL Creatinine (0.5-1.4) mg/dL Estim Creat Clear Calc Estimated GFR Random Glucose (60-115) mg/dL Lactic Acid 1.4 (0.5-2.0) mmol/L Calcium (8.4-10.2) mg/dL Total Bilirubin (0.0-1.0) mg/dL AST (5-37) U/L ALT (0-40) U/L Alkaline Phosphatase (39-117) U/L Total Protein (6.5-8.0) g/dL Albumin (3.5-5.0) g/dL Lipase (8-78) U/L Urine Color Yellow Urine Appearance Turbid Urine pH 8.5 (5.0-9.0) Ur Specific [place] 1.015 (1.005-1.025) Urine Protein 30 (1+) H (Neg-Trace) mg/dL Urine Glucose (UA) Negative (Negative) mg/dL Urine Ketones Negative (Negative) mg/dL Urine Blood Large (3+) H (Negative) Urine Nitrite Negative (Negative) Ur Leukocyte Esterase Large (3+) H (Negative) Urine RBC >20 H (0-2) /HPF Urine WBC >50 H (0-5) /HPF Ur Squamous Epith Cells 0-2 (0-2) /HPF Urine Bacteria 4+ (None Seen) Hyaline Casts 0-2 (0-2) /LPF COVID-19 (CROW) Negative (Negative) COVID-19 Clin Com See Note Independent Interpretation I performed an independent interpretation of an: EKG and Plain X-Ray Interpretation: My independent interpretation patient's 12 EKG done at 04:10 hours is as follows: Atrial fibrillation with a rapid ventricular response of 111, no ST se gment elevation, no ST segment depression, nonspecific T-wave abnormalities, no PVCs My independent reading of the patient's one-view chest: No acute disease Radiology Impression Discussion of test interpretation with radiology: I have reviewed the radiologist's reading. Radiologist Impression: XR chest 1V IMPRESSION: No acute pulmonary disease. Dictated By:Michael Vargas MD External Record Review External record reviewed: Inpatient record and Outpatient record ([facility] notes) Chronic Conditions Patient?s care impacted by: Other (Dementia) Critical Care Time Critical Care Time Critical Care Time: Yes Total Critical Care Time: 40 Attestation: Critical Care: The patient was critically ill with a high probability of immi nent or life threatening deterioration. I spent greater than 30 minutes of discontinuous time evaluating the patient,delivering critical care at the bedside, discussing and evaluating pertinent data with consultants. Critical care time does not include time spent performing separately billable procedures or teaching. Total time spent performing critical care was 40 minutes. Discharge Plan Discharge Clinical Impression: Urinary tract infection, Fever, Acute dehydration Patient Disposition: Admitted As Inpatient
--- NOTE | 2023-02-18 03:58 | ECG_ITS ---
Test Reason : TACHYCARDIA Blood Pressure : / mmHG Vent. Rate : 111 BPM Atrial Rate : 111 BPM P-R Int : 000 ms QRS Dur : 084 ms QT Int : 356 ms P-R-T Axes : 000 -33 076 degrees QTc Int : 484 ms Normal sinus rhythm with Premature ventricular complexes in a pattern of bigeminy Left axis deviation Abnormal ECG When compared with ECG of 02-AUG-2022 23:20, Premature ventricular complexes are now Present Referred By: Mark Dwyer Electronically Signed By:TIMMY NYE
[2023-02-18 04:32] LABS: Basophils Percent Auto 0.2 % (0-2); Hematocrit 38.6 % (42.0-52.0); Hemoglobin 12.5 g/dl (14.0-18.0); Imm Gran Abs Auto 0.06 X10*3/uL (0.00-0.03); Imm Gran Pct Auto 0.4 % (0.0-0.4); Lymphocytes Absolute Auto 0.5 X10*3/uL (1.2-4.9); Lymphocytes Percent Auto 3.2 % (20-40); MANUAL DIFF FLAG SCAN; Mean Corpuscular HGB Conc 32.4 g/dl (31.0-36.0); Mean Corpuscular Hemoglobin 29.6 pg (27.0-33.0); Mean Corpuscular Volume 91.3 fL (80.0-98.0); Mean Platelet Volume 9.8 fL (9.4-12.4); Monocytes Absolute Auto 0.8 X10*3/uL (0.1-1.2); Monocytes Percent Auto 4.6 % (2-11); Neutrophils Absolute Auto 15.1 x10*3/uL (2.0-8.3); Neutrophils Percent Auto 91.6 % (45-73); Platelet Count 282 X10*3/uL (160-400); Red Blood Count 4.23 X10*6/uL (4.60-5.80); Red Cell Distribution Width 13.9 % (11.0-16.0); SCAN SMEAR FLAG 1; White Blood Count 16.5 X10*3/uL (4.8-10.8)
[2023-02-18 04:33] LABS: Appearance Urine Turbid; Color Urine Yellow; Glucose Urine UA Negative (Negative); Leukocyte Esterase Urine Large (3+) (Negative); Nitrite Urine Negative (Negative); PH 8.5 (5.0-9.0); Specific Gravity - Urine 1.015 (1.005-1.025); UMIC TRIGGER UACC YES; Urine Blood Large (3+) (Negative); Urine Ketones Negative (Negative); Urine Protein 30 (1+) mg/dL (Neg-Trace)
[2023-02-18] MEDS: SODIUM CHLORIDE 1416 ML IV (04:34)
[2023-02-18] MEDS: cefTRIAXone sodium 1 GM in 0.9 % Sodium Chloride 50 ML IV (04:35)
[2023-02-18 04:37] LABS: Bacteria Urine 4+ (None Seen); Hyaline Casts Urine 0-2 /LPF (0-2); INTERNATIONAL NORM RATIO 1.2 (0.9-1.1); Prothrombin Time 15.1 SEC (11.1-13.3); RBC Urine >20 /HPF (0-2); Squamous Epithelial Cell Urine 0-2 /HPF (0-2); UACC Culture Trigger YES; WBC Urine >50 /HPF (0-5)
[2023-02-18 04:40] LABS: Partial Thromboplastin Time 31.2 SEC (26.0-36.4)
[2023-02-18 04:42] LABS: COVID-19 Test Negative (Negative); IDNOW Serial# 6674DD1D
[2023-02-18 04:43] LABS: Lactic Acid 1.4 mmol/L (0.5-2.0)
[2023-02-18 04:50] LABS: Alanine Aminotransferase 13 U/L (0-40); Alkaline Phosphatase 74 U/L (39-117); Anion Gap 13 (12-20); Aspartate Amino Transferase 14 U/L (5-37); Bilirubin Total 0.8 mg/dL (0.0-1.0); Blood Urea Nitrogen 27 mg/dL (9-16); Calcium 9.7 mg/dL (8.4-10.2); Carbon Dioxide 25 mmol/L (22-29); Chloride 111 mmol/L (96-108); Creatinine Clr Calc Pharmacy 29.9; Estimated Glomerular Filt Rate 50; Glucose Random 106 mg/dL (60-115); Lipase 18 U/L (8-78); Potassium 3.4 mmol/L (3.3-5.1); Sodium 146 mmol/L (135-145); Total Protein 7.6 g/dL (6.5-8.0)
[2023-02-18 04:52] LABS: SLIDE REVIEW VERIFIED
[2023-02-18] MEDS: vancomycin HCL 1,250 MG in 0.9 % Sodium Chloride 250 ML 166.67 MG IV (05:24)
[2023-02-18] MEDS: Acetaminophen 325 MG TABLET 975 MG PO (05:30)
--- NOTE | 2023-02-18 07:19 | PC.NURSE ---
Pt BIBA with complaints of dysuria with chronic ornelas. This RN and charge attempt to aspirate and irrigate ornelas with minimal success. Balloon over inflated with 12mls instead of 5ml from facility. drained ballooon and reinserted 5ml saline. Pt repositioned and rectal temperature taken 103F. After reporsition, ornelas started to drain, bag changed. Sepsis protocol initiated at 0404 due temp, elevated HR. MD notified, labs, bc, ua, covid and flu swabs sent to lab. abx and fluids administered per orders. Patient accidentally pulled out IV in left arm. New iv #20 R-forearm placed and wrapped. Pt alert and oriented to self only and requires redirection.
[2023-02-18] MEDS: Lactated Ringers 1,000 ML 150 ML IVCONT ×3 (08:49→17:22)
--- NOTE | 2023-02-18 08:54 | PHA.MEDREC ---
Pharmacy Consult ? Medication Reconciliation Pharmacy has completed the medication reconciliation. Patient had med list from [facility].
--- NOTE | 2023-02-18 11:10 | PM.IMHP ---
History of Present Illness Date of Service: 02/18/23 Attending physician on admission: Naveed Sanchez Chief Complaint: Urinary retention Pt is a 77-year-old male with a PMH significant for?paroxysmal AFib on Eliquis, HTN, dementia with behavior disturbances, BPH, and MRSA bacteremia secondary to MRSA in the urine on 08/12/2022 who presents to the ED from SNF with increased confusion, lower abdominal pain, and nonfunctioning Moreau catheter. Patient is a resident of [facility]. Staff at facility noticed the patient was acting more confused last night and his Moreau catheter was not draining properly. Rectal temperature was high as 103, and patient sent in to the ED for further evaluation. Patient is alert and oriented to self only and this incapable of providing accurate HPI, the patient states he is doing ?fine? and has no acute medical complaints. Denies chest pain/pressure, palpitations. No shortness of breath. Denies abdominal pain. In the ED patient was febrile with rectal temperature 103.1 degrees, tachycardia up to 113, and hypotension as low as 92/59. Labs were significant for leukocytosis of 16.5, H&H 12.5 of 38.6, creatinine 1.38. Lactic acid WNL at 1.4. Hepatic function baseline. UA positive for UTI with for leukocyte esterase, rbc's greater than 20, wbc's greater than 50, bacteria 4+. CXR showed no acute cardiapulmonary disease. EKG demonstrated bigeminy with no evidence of ST elevations or depressions. Pt was treated with sepsis bolus of IVF, ceftriaxone, vancomycin, and acetaminophen. Pt will be admitted to the hospital for treatment with IV antibiotics and IVF of severe sepsis in the setting UTI in a patient with a hx of MRSA bacteremia. Review of Systems Review of Systems: Unable to obtain due to patient's mentation [facility] Medical History Atrial fibrillation BPH (benign prostatic hyperplasia) Dementia Hx of intermediate use of blood thinners Social History Alcohol intake: never Patient Tobacco Use Status: Tobacco use Unknown Smoked in Last 30 Days: No Use of substances other than those prescribed or required for medical reasons: No Advance Directives: No Advance Directives Information Provided: No Nutrition Risks: No Nutritional Risk service: No Current occupational status: disabled Meds Allergies Allergy/AdvReac Type Severity Reaction Status Date / Time No Known Allergies Allergy Verified 01/19/22 06:22 Active Medications: Current Medications Lactated Ringer's (Lr) 1,000 mls @ 150 mls/hr IVCONT .Q6H40M [facility] Last Admin: 02/18/23 08:49 Dose: 150 mls/hr Pharmacy Consult (Consult Rx Perform Med Rec) 1 each MISCELLANE ONCE PRN PRN Reason: Consult order Home Medications Medication Instructions Recorded Confirmed Last Taken Type apixaban 2.5 mg tablet (Eliquis) 2.5 mg PO BID 08/03/22 02/18/23 Unknown History cyanocobalamin (vitamin B-12) 1,000 mcg PO DAILY 08/03/22 02/18/23 Unknown History 1,000 mcg tablet diltiazem HCl 120 mg 120 mg PO DAILY 08/03/22 02/18/23 Unknown History capsule,extended release 24 hr famotidine 20 mg tablet 20 mg PO BID 08/03/22 02/18/23 Unknown History finasteride 5 mg tablet 5 mg PO DAILY 08/03/22 02/18/23 Unknown History mirtazapine 15 mg tablet 15 mg PO BEDTIME 08/03/22 02/18/23 Unknown History tamsulosin 0.4 mg capsule (Flomax) 0.4 mg PO DAILY 08/03/22 02/18/23 Unknown History acetaminophen 325 mg tablet 650 mg PO Q6H PRN Fever Or Pain 02/18/23 02/18/23 Unknown History (Tylenol) bisacodyl 10 mg rectal suppository 10 mg [place] DAILY PRN Constipation 02/18/23 02/18/23 Unknown History d-mannose 500 mg capsule 1,000 mg PO BID 02/18/23 02/18/23 Unknown History magnesium hydroxide 400 mg/5 mL 30 ml PO DAILY PRN Constipation 02/18/23 02/18/23 Unknown History oral suspension (Milk of Magnesia) sennosides 8.6 mg-docusate sodium 2 tab-cap PO BID 02/18/23 02/18/23 Unknown History 50 mg tablet (Senna with Docusate Sodium) sodium phosphates 19 gram-7 118 ml [place] DAILY PRN Constipation 08/17/23 08/17/23 Unknown History gram/118 mL enema (Fleet Enema) Physical Exam Vital Signs and Narrative: Vital Signs: Last Vital Signs Temp 98.5 F 02/18/23 10:40 Pulse 64 02/18/23 10:40 Resp 16 02/18/23 10:40 BP 91/62 02/18/23 10:40 Pulse Ox 98 02/18/23 10:40 O2 Del Method Room Air 02/18/23 10:40 BMI result Body Mass Index 16.3 Constitutional: Alert, pleasantly confused, in no acute distress. Mental Status: Oriented to person only. Eyes: Pupils are equal, round, and reactive to light. Ear, Nose, and Throat: Oropharynx clear, mucous membranes moist. Ears and nose without deformities. Trachea midline. Respiratory: Clear to auscultation bilaterally. No wheezing, rales, or rhonchi. Cardiovascular: S1, S2 regular. No murmurs, rubs, or gallops. Gastrointestinal: Abdomen soft, non-tender, non-distended. Normal bowel sounds. Genitourinary: Moreau in place. Neurologic: Cranial nerves II-XII are grossly intact bilaterally. No focal neurological deficits. Moves all extremities spontaneously. Skin: No rashes or lesions noted. Musculoskeletal: No cyanosis or clubbing. Extremities: No edema. Psychiatric: Confused, normal mood and affect. Cooperative. Results Labs 02/18/23 04:17 02/18/23 04:17 Labs: Laboratory Results - last 24 hr 02/18/23 02/18/23 02/18/23 04:17 04:17 04:17 MCV 91.3 MCH 29.6 MCHC 32.4 RDW 13.9 Plt Count 282 MPV 9.8 Immature Gran % (Auto) 0.4 Neut % (Auto) 91.6 H Lymph % (Auto) 3.2 L [place] % (Auto) 4.6 Eos % (Auto) 0.0 Baso % (Auto) 0.2 Lymph # (Auto) 0.5 L [place] # (Auto) 0.8 Eos # (Auto) 0.0 Baso # (Auto) 0.0 Abs Immat Gran (auto) 0.06 H Absolute Neuts (auto) 15.1 H Absolute Nucleated RBC 0.000 Nucleated RBC % (auto) 0.0 Smear Tech's Comments VERIFIED PT 15.1 H INR 1.2 H APTT 31.2 Anion Gap 13 Estim Creat Clear Calc 29.9 Estimated GFR 50 Random Glucose 106 Lactic Acid Calcium 9.7 D Total Bilirubin 0.8 AST 14 ALT 13 Alkaline Phosphatase 74 Total Protein 7.6 Albumin 4.0 Lipase 18 Urine Color Urine Appearance Urine pH Ur Specific [place] Urine Protein Urine Glucose (UA) Urine Ketones Urine Blood Urine Nitrite Ur Leukocyte Esterase Urine RBC Urine WBC Ur Squamous Epith Cells Urine Bacteria Hyaline Casts COVID-19 (CROW) COVID-19 Clin Com 02/18/23 02/18/23 02/18/23 04:17 04:17 04:24 MCV MCH MCHC RDW Plt Count MPV Immature Gran % (Auto) Neut % (Auto) Lymph % (Auto) [place] % (Auto) Eos % (Auto) Baso % (Auto) Lymph # (Auto) [place] # (Auto) Eos # (Auto) Baso # (Auto) Abs Immat Gran (auto) Absolute Neuts (auto) Absolute Nucleated RBC Nucleated RBC % (auto) Smear Tech's Comments PT INR APTT Anion Gap Estim Creat Clear Calc Estimated GFR Random Glucose Lactic Acid 1.4 Calcium Total Bilirubin AST ALT Alkaline Phosphatase Total Protein Albumin Lipase Urine Color Yellow Urine Appearance Turbid Urine pH 8.5 Ur Specific [place] 1.015 Urine Protein 30 (1+) H Urine Glucose (UA) Negative Urine Ketones Negative Urine Blood Large (3+) H Urine Nitrite Negative Ur Leukocyte Esterase Large (3+) H Urine RBC >20 H Urine WBC >50 H Ur Squamous Epith Cells 0-2 Urine Bacteria 4+ Hyaline Casts 0-2 COVID-19 (CROW) Negative COVID-19 Clin Com See Note Imaging Radiologist's Impressions: Impressions Chest X-Ray 02/18/23 04:30 IMPRESSION: No acute pulmonary disease. Assessment and Plan (1) Urinary tract infection: Status: Acute (2) Sepsis: Status: Acute Plan Pt will be admitted to the hospital for treatment with IV antibiotics and IVF of severe sepsis in the setting UTI in a patient with a hx of MRSA bacteremia. Sepsis in the setting of UTI UA positive for UTI Patient meets severe sepsis criteria: UTI, WBC, tachycardia, hypotension Patient received 30 mls/kg IVF bolus, started on broad-spectrum antibiotics Patient with history of MRSA bacteremia secondary to MRSA in urine on 08/12/2022 Abx: Ceftriaxone, vancomycin, started 02/18/2023 Follow cultures Acute metabolic encephalopathy Patient with increased confusion per SNF staff Patient with advanced dementia at baseline, alert and oriented to self only Likely secondary to UTI Treat as above Hypotension BP as low as 92/59 Received sepsis bolus IVF Monitor BP Elevated creatinine Creatinine 1.38, elevated from baseline 1.10 Patient receiving IVF Monitor BMP Paroxysmal AFib EKG showing bigeminy Patient asymptomatic: denies chest pain/pressure, palpitations Continue Eliquis, diltiazem Monitor on telemetry GERD Continue famotidine BPH Continue tamsulosin Mood disorder Continue mirtazapine Full Code Attending:?Dr. Sanchez DVT Prophylaxis: On Eliquis Pt will require a hospitalization of at least two nights for treatment with IV antibiotics and IVF of severe sepsis in the setting UTI in a patient with a hx of MRSA bacteremia. Time Spent With Patient Time: Total time managing care of this patient today ____ minutes. Quality Stroke Does the patient have a stroke diagnosis?: No VTE Prior VTE?: No VTE Risk Level:: Medical - moderate - high VTE Device Contraindication: Treatment Not Indicated VTE Drug Contraindication: N/A - Med Ordered
--- NOTE | 2023-02-18 11:27 | PC.NURSE ---
incontinent of stool and cleaned, denies pain, skin wpd, nad, pleasantly confused
--- NOTE | 2023-02-18 12:16 | PHA.PROG ---
Admission Date/Time: Indication: Sepsis Weight in k.2 kg Adjusted body weight in Kg: [place] body weight in Kg: Obesity Dosing Indication % IBW: Serum Creatinine - Last 168 Hours 02/18/23 04:17 Creatinine 1.38 Estimated CrCl and GFR - Last 168 Hours 02/18/23 04:17 Estim Creat Clear Calc 29.9 Estimated GFR 50 Vancomycin Loading Dose: 1250 mg x ! Current Vancomycin Dosing Regimen: 750mg Q24H Vancomycin Monitoring using AUC goal of 400 - 600 range with trough as surrogate marker: 493 mg/L Date and Time for next Vancomycin Level to be drawn: 02/21/23 @0600 Pharmacist Comments on Vancomycin Plan: Will continue to monitor renal function and adjust appropriately. Predicted trough of 15.6 mg/L Vancomycin dosing will take advantage of [employer] as a clinical decision support tool that uses Bayesian modeling to calculate individual patient's pharmacokinetic parameters and forecast the patient's drug concentration time course with the target goal AUC 24 range of 400 - 600 mg/L/hr.
[2023-02-18] MEDS: dilTIAZem HCL CD 120 MG CAP.ER.DEG PO (13:17)
[2023-02-18] MEDS: Sennosides/Docusate Sodium TABLET 2 TAB PO ×2 (13:18→19:55)
[2023-02-18] MEDS: Famotidine 20 MG TABLET PO ×2 (13:18→19:55)
[2023-02-18] MEDS: Tamsulosin HCL 0.4 MG CAPSULE PO (13:18)
[2023-02-18] MEDS: Finasteride 5 MG TABLET PO (13:18)
[2023-02-18] MEDS: Cyanocobalamin (Vitamin B-12) 1,000 MCG TABLET 1000 MCG PO (13:19)
[2023-02-18] MEDS: Apixaban 2.5 MG TABLET PO ×2 (13:19→19:55)
--- NOTE | 2023-02-18 13:22 | PC.NURSE ---
medicated as ordered, confused but easily redirected 700ml in ornelas and has been draining without problems, sr on monityor
--- NOTE | 2023-02-18 16:09 | MHC.CM.PN ---
CM met with Patient at bedside and attempted to address IMM with him but per RN and CM observation, Patient appeared quite confused and there is no listed Contact. Patient is a LTC Resident and [facility] bed hold @ [facility]. Returning to [facility] appears to be the dc plan and CM has initiated and will follow for dc planning needs/changes.
[2023-02-18] MEDS: 0.9 % Sodium Chloride Flush 3 ML SYRINGE IVFLUSH ×2 (17:12→19:56)
[2023-02-18] MEDS: Mirtazapine 15 MG TABLET PO (19:55)
[2023-02-19] MEDS: Lactated Ringers 1,000 ML 150 ML IVCONT ×2 (00:14→11:46)
[2023-02-19 03:05] VITALS: BP 108/67; PULSE 57; RESP 16; TEMP 37.2; O2SAT 96
[2023-02-19] MEDS: cefTRIAXone sodium 1 GM in 0.9 % Sodium Chloride 50 ML IV (04:08)
[2023-02-19 06:49] LABS: Hematocrit 29.6 % (42.0-52.0); Hemoglobin 9.5 g/dl (14.0-18.0); Mean Corpuscular HGB Conc 32.1 g/dl (31.0-36.0); Mean Corpuscular Hemoglobin 29.8 pg (27.0-33.0); Mean Corpuscular Volume 92.8 fL (80.0-98.0); Mean Platelet Volume 10.5 fL (9.4-12.4); Platelet Count 215 X10*3/uL (160-400); Red Blood Count 3.19 X10*6/uL (4.60-5.80); Red Cell Distribution Width 14.1 % (11.0-16.0); White Blood Count 16.2 X10*3/uL (4.8-10.8)
[2023-02-19 07:11] LABS: Anion Gap 12 (12-20); Blood Urea Nitrogen 27 mg/dL (9-16); Calcium 8.3 mg/dL (8.4-10.2); Carbon Dioxide 23 mmol/L (22-29); Chloride 111 mmol/L (96-108); Creatinine Clr Calc Pharmacy 36.5; Estimated Glomerular Filt Rate > 60; Glucose Random 70 mg/dL (60-115); Potassium 3.1 mmol/L (3.3-5.1); Sodium 143 mmol/L (135-145)
[2023-02-19 07:49] VITALS: BP 117/56; PULSE 51; RESP 20; TEMP 36.9; O2SAT 95
--- NOTE | 2023-02-19 08:00 | HE.PHANOTE ---
VANCO DOSE ADJUSTMENT BASED ON SCR DOSE INCREASED TO 1000 Q 24H. NEXT TROUGH 02/21 @ 0600
--- NOTE | 2023-02-19 08:11 | MHC.CM.PN ---
IMM will be mailed to Guardian/Alecia and a copy has been placed on the chart.
[2023-02-19] MEDS: 0.9 % Sodium Chloride Flush 3 ML SYRINGE IVFLUSH ×3 (09:08→21:07)
[2023-02-19] MEDS: Finasteride 5 MG TABLET PO (09:08)
[2023-02-19] MEDS: Cyanocobalamin (Vitamin B-12) 1,000 MCG TABLET 1000 MCG PO (09:09)
[2023-02-19] MEDS: dilTIAZem HCL CD 120 MG CAP.ER.DEG PO (09:09)
[2023-02-19] MEDS: Tamsulosin HCL 0.4 MG CAPSULE PO (09:09)
[2023-02-19] MEDS: Famotidine 20 MG TABLET PO ×2 (09:09→21:07)
[2023-02-19] MEDS: Apixaban 2.5 MG TABLET PO ×2 (09:09→21:07)
[2023-02-19] MEDS: Sennosides/Docusate Sodium TABLET 2 TAB PO ×2 (09:10→21:07)
[2023-02-19] MEDS: vancomycin HCL 1,000 MG in 0.9 % Sodium Chloride 250 ML 270 MG IV (09:25)
[2023-02-19 10:16] VITALS: BMI 16.3
[2023-02-19 11:33] VITALS: BP 126/67; PULSE 57; RESP 20; TEMP 36.8; O2SAT 94
--- NOTE | 2023-02-19 14:48 | P.PNIM_ITS ---
Subjective Subjective Date of Service: 02/19/23 Interval History: Patient pleasantly confused at baseline with history of dementia, unable to obtain meaningful history no overnight events, patient presented with fever of 103, tachycardia and hypotension, lab significant for leukocytosis, patient with chronic indwelling Moreau catheter was changed in the emergency room, patient currently on IV antibiotic and IV fluids. Physical Exam Vital Signs: Vital Signs: Last Vital Signs Temp 98.3 F 02/19/23 11:33 Pulse 57 02/19/23 11:33 Resp 20 02/19/23 11:33 BP 126/67 02/19/23 11:33 Pulse Ox 94 02/19/23 11:33 O2 Del Method Room Air 02/19/23 11:33 BMI result Body Mass Index 16.3 Const: Other: General resting comfortably in no acute distress. Neck supple no JVD. CVS regular rate rhythm, Respiratory lungs clear to auscultation, no respiratory distress, no wheeze, no rhonchi. Gastrointestinal abdomen soft, nontender, bowel sounds audible, no guarding , no rigidity. Extremities no edema. Neuro nonfocal , moving all 4 extremity, speech clear. Skin no rash Psych poor insight, baseline confusion Objective Data Active Medications Acetaminophen (Acetaminophen 325 Mg Tablet) 650 mg PO Q6H PRN PRN Reason: Pain, Mild (Pain Scale 1-3) Apixaban (Apixaban 2.5 Mg Tablet) 2.5 mg PO BID [facility] Last Admin: 02/19/23 09:09 Dose: 2.5 mg Documented By: EVGENY Bisacodyl (Bisacodyl 10 Mg Supp.Rect) 10 mg IN DAILY PRN PRN Reason: Constipation Cyanocobalamin (Cyanocobalamin (Vitamin B-12) 1,000 Mcg Tablet) 1,000 mcg PO DAILY [facility] Last Admin: 02/19/23 09:09 Dose: 1,000 mcg Documented By: EVGENY Diltiazem HCl (Diltiazem Hcl Cd 120 Mg Cap.Er.Deg) 120 mg PO DAILY [facility]; Protocol Last Admin: 02/19/23 09:09 Dose: 120 mg Documented By: EVGENY Famotidine (Famotidine 20 Mg Tablet) 20 mg PO BID [facility] Last Admin: 02/19/23 09:09 Dose: 20 mg Documented By: EVGENY Finasteride (Finasteride 5 Mg Tablet) 5 mg PO DAILY [facility] Last Admin: 02/19/23 09:08 Dose: 5 mg Documented By: EVGENY Lactated Ringer's (Lr) 1,000 mls @ 150 mls/hr IVCONT .Q6H40M [facility] Last Admin: 02/19/23 11:46 Dose: 150 mls/hr Documented By: EVGENY Ceftriaxone Sodium 1 gm/ (Sodium Chloride) 50 mls @ 100 mls/hr IV Q24H [facility] Last Infusion: 02/19/23 05:04 Dose: 0 mls/hr Documented By: ANNIE Vancomycin HCl 1,000 mg/ (Sodium Chloride) 270 mls @ 270 mls/hr IV Q24H [facility] Last Infusion: 02/19/23 11:22 Dose: 0 mls/hr Documented By: EVGENY Magnesium Hydroxide (Milk Of Magnesia 30 Ml Oral.Susp) 30 ml PO DAILY PRN PRN Reason: Constipation Mirtazapine (Mirtazapine 15 Mg Tablet) 15 mg PO BEDTIME [facility] Last Admin: 02/18/23 19:55 Dose: 15 mg Documented By: ANNIE Ondansetron HCl (Ondansetron Hcl 4 Mg/2 Ml Vial) 4 mg IVPUSH Q8H PRN PRN Reason: Nausea and Vomiting Pharmacy Consult (Consult Rx Perform Med Rec) 1 each MISCELLANE ONCE PRN PRN Reason: Consult order Pharmacy Consult (Consult Rx Vancomycin Dosing) 1 each MISCELLANE DAILY PRN PRN Reason: Consult order Senna/Docusate Sodium (Sennosides/Docusate Sodium Tablet) 2 tab PO BID [facility] Last Admin: 02/19/23 09:10 Dose: 2 tab Documented By: EVGENY Sodium Biphosphate/Sodium Phosphate (Sodium Phosphate,[place]-Dibasic 133 Ml Enema) 118 ml IN DAILY PRN PRN Reason: Constipation Sodium Chloride (0.9 % Sodium Chloride Flush 3 Ml Syringe) 3 ml IVFLUSH QSHIFT [facility] Last Admin: 02/19/23 09:08 Dose: 3 ml Documented By: EVGENY Tamsulosin HCl (Tamsulosin Hcl 0.4 Mg Capsule) 0.4 mg PO DAILY [facility] Last Admin: 02/19/23 09:09 Dose: 0.4 mg Documented By: EVGENY Labs 02/19/23 06:03 02/19/23 06:03 Labs: Laboratory Results - last 24 hr 02/19/23 02/19/23 06:03 06:03 MCV 92.8 MCH 29.8 MCHC 32.1 RDW 14.1 Plt Count 215 MPV 10.5 Absolute Nucleated RBC 0.000 Nucleated RBC % (auto) 0.0 Anion Gap 12 Estim Creat Clear Calc 36.5 Estimated GFR > 60 Random Glucose 70 Calcium 8.3 L D Microbiology Microbiology Results: Microbiology 02/18/23 Unknown Urine Culture - Preliminary Urine Catheterized - Moreau Catheter Culture in progress. 02/18/23 04:17 Blood Culture - Preliminary Blood - Venous Gram negative alejandra 02/18/23 04:17 Blood Culture - Preliminary Blood - Venous Gram negative alejandra Assessment and Plan (1) Urinary tract infection: Status: Acute Plan will be admitted to the hospital for treatment with IV antibiotics and IVF of severe sepsis in the setting UTI in a patient with a hx of MRSA bacteremia. Sepsis in the setting of UTI UA positive for UTI, met severe sepsis criteria:? UTI, WBC, tachycardia, hypotension Patient received 30 mls/kg IVF bolus, continue IV ceftriaxone and IV vancomycin started 02/18 Patient with history of MRSA bacteremia secondary to MRSA in urine on 08/12/2022 Blood cultures x2 positive for Gram-negative alejandra urine culture pending, persistent leukocytosis. Acute metabolic encephalopathy Patient with increased confusion per SNF staff Patient with advanced dementia at baseline, alert and oriented to self only Likely secondary to UTI Treat as above Acute hypokalemia potassium 3.1 will replace and follow labs Hypotension BP 92/59, status post IV fluid blood pressure improved Elevated creatinine Creatinine 1.38, on admission improved to baseline 1.1, will DC IV fluids Paroxysmal AFib EKG showing bigeminy Continue Eliquis, diltiazem GERD Continue famotidine BPH Continue tamsulosin Mood disorder Continue mirtazapine Full Code DVT Prophylaxis: On Eliquis Pt will require continued inpatient hospitalization for IV antibiotics Time Spent With Patient Time: Total time managing care of this patient today ____ minutes. Quality Stroke Does the patient have a stroke diagnosis?: No VTE Prior VTE?: No VTE Risk Level:: Medical - moderate - high VTE Device Contraindication: Treatment Not Indicated VTE Drug Contraindication: N/A - Med Ordered
[2023-02-19 15:32] VITALS: BP 120/67; PULSE 70; RESP 20; TEMP 37.4; O2SAT 94
[2023-02-19] MEDS: Potassium Chloride ER 20 MEQ TAB.ER.PRT 40 MEQ PO (17:13)
[2023-02-19 19:10] VITALS: BP 106/60; PULSE 59; RESP 18; TEMP 36.8; O2SAT 95
[2023-02-19] MEDS: Mirtazapine 15 MG TABLET PO (21:07)
[2023-02-20] VITALS (7 sets, daily range): BP systolic 128–148; BP diastolic 71–92; PULSE 50–65; RESP 14–18; TEMP 36.2–37.3; O2SAT 95–99
[2023-02-20] MEDS: cefTRIAXone sodium 1 GM in 0.9 % Sodium Chloride 50 ML IV (04:17)
[2023-02-20 06:28] LABS: Hematocrit 28.9 % (42.0-52.0); Hemoglobin 9.3 g/dl (14.0-18.0); Mean Corpuscular HGB Conc 32.2 g/dl (31.0-36.0); Mean Corpuscular Hemoglobin 29.2 pg (27.0-33.0); Mean Corpuscular Volume 90.9 fL (80.0-98.0); Mean Platelet Volume 10.5 fL (9.4-12.4); Platelet Count 221 X10*3/uL (160-400); Red Blood Count 3.18 X10*6/uL (4.60-5.80); Red Cell Distribution Width 13.6 % (11.0-16.0); White Blood Count 10.5 X10*3/uL (4.8-10.8)
[2023-02-20 06:42] LABS: Anion Gap 12 (12-20); Blood Urea Nitrogen 21 mg/dL (9-16); Calcium 8.3 mg/dL (8.4-10.2); Carbon Dioxide 24 mmol/L (22-29); Chloride 111 mmol/L (96-108); Creatinine Clr Calc Pharmacy 34.1; Estimated Glomerular Filt Rate 58; Glucose Random 95 mg/dL (60-115); Potassium 3.5 mmol/L (3.3-5.1); Sodium 143 mmol/L (135-145)
[2023-02-20] MEDS: vancomycin HCL 1,000 MG in 0.9 % Sodium Chloride 250 ML 270 MG IV (09:01)
[2023-02-20] MEDS: Sennosides/Docusate Sodium TABLET 2 TAB PO ×2 (09:02→23:59)
[2023-02-20] MEDS: Finasteride 5 MG TABLET PO (09:02)
[2023-02-20] MEDS: Cyanocobalamin (Vitamin B-12) 1,000 MCG TABLET 1000 MCG PO (09:02)
[2023-02-20] MEDS: Tamsulosin HCL 0.4 MG CAPSULE PO (09:02)
[2023-02-20] MEDS: dilTIAZem HCL CD 120 MG CAP.ER.DEG PO (09:03)
[2023-02-20] MEDS: Famotidine 20 MG TABLET PO ×2 (09:03→23:59)
[2023-02-20] MEDS: Apixaban 2.5 MG TABLET PO ×2 (09:03→23:59)
[2023-02-20] MEDS: 0.9 % Sodium Chloride Flush 3 ML SYRINGE IVFLUSH ×2 (09:17→23:59)
--- NOTE | 2023-02-20 14:46 | HO.PM.IMPN ---
Subjective Subjective Date of Service: 02/20/23 Interval History: No change in mental status remains pleasantly confused likely at baseline, no behavioral issues noted, unable to obtain meaningful history, no recurrent fevers, tolerating diet with no nausea no vomiting no abdominal pain. Review of Systems Unable to obtain review of system due to baseline dementia. Physical Exam Vital Signs: Vital Signs: Last Vital Signs Temp 98.9 F 02/20/23 11:09 Pulse 54 02/20/23 11:09 Resp 16 02/20/23 11:09 BP 138/76 02/20/23 11:09 Pulse Ox 95 02/20/23 11:09 O2 Del Method Room Air 02/20/23 11:09 BMI result Body Mass Index 16.3 Const: Other: General resting comfortably in no acute distress.? Neck? supple no JVD. CVS? regular rate rhythm, Respiratory lungs clear to auscultation, no respiratory distress, no wheeze, no rhonchi. Gastrointestinal abdomen soft, nontender, bowel sounds audible,? no guarding , no rigidity. Extremities no? edema. Neuro nonfocal , moving all 4 extremity, speech clear. Skin no rash Psych poor insight, baseline confusion Moreau catheter clear urine Objective Data Active Medications Acetaminophen (Acetaminophen 325 Mg Tablet) 650 mg PO Q6H PRN PRN Reason: Pain, Mild (Pain Scale 1-3) Apixaban (Apixaban 2.5 Mg Tablet) 2.5 mg PO BID [facility] Last Admin: 02/20/23 09:03 Dose: 2.5 mg Documented By: JOHN Bisacodyl (Bisacodyl 10 Mg Supp.Rect) 10 mg [place] DAILY PRN PRN Reason: Constipation Cyanocobalamin (Cyanocobalamin (Vitamin B-12) 1,000 Mcg Tablet) 1,000 mcg PO DAILY [facility] Last Admin: 02/20/23 09:02 Dose: 1,000 mcg Documented By: JOHN Diltiazem HCl (Diltiazem Hcl Cd 120 Mg Cap.Er.Deg) 120 mg PO DAILY [facility]; Protocol Last Admin: 02/20/23 09:03 Dose: 120 mg Documented By: JOHN Famotidine (Famotidine 20 Mg Tablet) 20 mg PO BID [facility] Last Admin: 02/20/23 09:03 Dose: 20 mg Documented By: JOHN Finasteride (Finasteride 5 Mg Tablet) 5 mg PO DAILY [facility] Last Admin: 02/20/23 09:02 Dose: 5 mg Documented By: JOHN Ceftriaxone Sodium 1 gm/ (Sodium Chloride) 50 mls @ 100 mls/hr IV Q24H [facility] Last Infusion: 02/20/23 05:00 Dose: 0 mls/hr Documented By: ANNIE Vancomycin HCl 1,000 mg/ (Sodium Chloride) 270 mls @ 270 mls/hr IV Q24H [facility] Last Infusion: 02/20/23 10:19 Dose: 0 mls/hr Documented By: JOHN Magnesium Hydroxide (Milk Of Magnesia 30 Ml Oral.Susp) 30 ml PO DAILY PRN PRN Reason: Constipation Mirtazapine (Mirtazapine 15 Mg Tablet) 15 mg PO BEDTIME [facility] Last Admin: 02/19/23 21:07 Dose: 15 mg Documented By: ANNIE Ondansetron HCl (Ondansetron Hcl 4 Mg/2 Ml Vial) 4 mg IVPUSH Q8H PRN PRN Reason: Nausea and Vomiting Pharmacy Consult (Consult Rx Perform Med Rec) 1 each MISCELLANE ONCE PRN PRN Reason: Consult order Pharmacy Consult (Consult Rx Vancomycin Dosing) 1 each MISCELLANE DAILY PRN PRN Reason: Consult order Senna/Docusate Sodium (Sennosides/Docusate Sodium Tablet) 2 tab PO BID [facility] Last Admin: 02/20/23 09:02 Dose: 2 tab Documented By: JOHN Sodium Biphosphate/Sodium Phosphate (Sodium Phosphate,[place]-Dibasic 133 Ml Enema) 118 ml [place] DAILY PRN PRN Reason: Constipation Sodium Chloride (0.9 % Sodium Chloride Flush 3 Ml Syringe) 3 ml IVFLUSH QSHIFT [facility] Last Admin: 02/20/23 09:17 Dose: 3 ml Documented By: JOHN Tamsulosin HCl (Tamsulosin Hcl 0.4 Mg Capsule) 0.4 mg PO DAILY [facility] Last Admin: 02/20/23 09:02 Dose: 0.4 mg Documented By: JOHN Labs 02/20/23 05:52 02/20/23 05:52 Labs: Laboratory Results - last 24 hr 02/20/23 02/20/23 05:52 05:52 MCV 90.9 MCH 29.2 MCHC 32.2 RDW 13.6 Plt Count 221 MPV 10.5 Absolute Nucleated RBC 0.000 Nucleated RBC % (auto) 0.0 Anion Gap 12 Estim Creat Clear Calc 34.1 Estimated GFR 58 Random Glucose 95 Calcium 8.3 L Microbiology Microbiology Results: Microbiology 02/18/23 Unknown Urine Culture - Preliminary Urine Catheterized - Moreau Catheter Gram negative alejandra 02/18/23 04:17 Blood Culture - Final Blood - Venous Escherichia coli 02/18/23 04:17 Blood Culture - Final Blood - Venous Escherichia coli Assessment and Plan (1) Urinary tract infection: Status: Acute Plan admitted to the hospital for treatment with IV antibiotics and IVF of severe sepsis in the setting UTI in a patient with a hx of MRSA bacteremia. Sepsis in the setting of UTI Sepsis resolved continue IV ceftriaxone started 02/18 and dc IV vancomycin started due to prior history of MRSA urine in August of 2022, urine culture growing Gram-negative rods and blood culture positive for E coli WBC normalized. Acute metabolic encephalopathy Pleasantly confused, verbalizing but do not make sense, likely at baseline with advanced dementia alert and oriented to staff only Encephalopathy was Likely secondary to UTI Acute hypokalemia repleted and normalized Hypotension on admission resolved with IV fluids Elevated creatinine Creatinine 1.38, on admission improved to baseline 1.1, s/p IV fluids Paroxysmal AFib EKG showing bigeminy, Continue Eliquis, diltiazem GERD Continue famotidine BPH Continue tamsulosin Mood disorder Continue mirtazapine Unspecified dementia no behavioral issues Full Code DVT Prophylaxis: On Eliquis Pt will require continued inpatient hospitalization for IV antibiotics and final cultures sensitivities. Time Spent With Patient Time: Total time managing care of this patient today ____ minutes. Quality Stroke Does the patient have a stroke diagnosis?: No VTE Prior VTE?: No VTE Risk Level:: Medical - moderate - high VTE Device Contraindication: Treatment Not Indicated VTE Drug Contraindication: N/A - Med Ordered
[2023-02-20] MEDS: Mirtazapine 15 MG TABLET PO (23:59)
[2023-02-21 02:35] VITALS: BP 129/69; PULSE 51; RESP 14; TEMP 36.2; O2SAT 95
[2023-02-21] MEDS: cefTRIAXone sodium 1 GM in 0.9 % Sodium Chloride 50 ML IV (05:28)
[2023-02-21 06:19] LABS: Vancomycin Trough 13.9 mcg/mL (10.0-20.0)
[2023-02-21 06:20] LABS: Creatinine Clr Calc Pharmacy 38.9; Estimated Glomerular Filt Rate > 60
[2023-02-21 07:47] VITALS: BP 124/75; PULSE 50; RESP 16; TEMP 36.8; O2SAT 98
[2023-02-21] MEDS: vancomycin HCL 1,000 MG in 0.9 % Sodium Chloride 250 ML 270 MG IV (08:09)
[2023-02-21] MEDS: Sennosides/Docusate Sodium TABLET 2 TAB PO (08:09)
[2023-02-21] MEDS: Finasteride 5 MG TABLET PO (08:10)
[2023-02-21] MEDS: Cyanocobalamin (Vitamin B-12) 1,000 MCG TABLET 1000 MCG PO (08:10)
[2023-02-21] MEDS: Tamsulosin HCL 0.4 MG CAPSULE PO (08:10)
[2023-02-21] MEDS: Apixaban 2.5 MG TABLET PO (08:10)
[2023-02-21] MEDS: Famotidine 20 MG TABLET PO (08:10)
[2023-02-21] MEDS: 0.9 % Sodium Chloride Flush 3 ML SYRINGE IVFLUSH (08:10)
--- NOTE | 2023-02-21 10:13 | PM.DS ---
DS: Providers Provider Date of Service: 02/21/23 Date of admission: 02/18/23 11:40 Primary care physician: Rajesh Son MD DS: Diagnosis Discharge Diagnosis (1) Urinary tract infection: Status: Acute DS: Summary Hospital Course Hospital Course: Date of Service: 02/18/23 Attending physician on admission: Naveed Sanchez Chief Complaint: Urinary retention Pt is a 77-year-old male with a PMH significant for?paroxysmal AFib on Eliquis, HTN, dementia with behavior disturbances, BPH, and MRSA bacteremia secondary to MRSA in the urine on 08/12/2022 who presents to the ED from SNF with increased confusion, lower abdominal pain, and nonfunctioning Moreau catheter.? Patient is a resident of [facility]. Staff at facility noticed the patient was acting more confused last night and his Moreau catheter was not draining properly.? Rectal temperature was high as 103, and patient sent in to the ED for further evaluation. Patient is alert and oriented to self only and this incapable of providing accurate HPI, the patient states he is doing ?fine? and has no acute medical complaints.? Denies chest pain/pressure, palpitations.? No shortness of breath.? Denies abdominal pain. In the ED patient was febrile with rectal temperature 103.1 degrees, tachycardia up to 113, and hypotension as low as 92/59.? Labs were significant for leukocytosis of 16.5, H&H 12.5 of 38.6, creatinine 1.38.? Lactic acid WNL at 1.4.? Hepatic function baseline.? UA positive for UTI with for leukocyte esterase, rbc's greater than 20, wbc's greater than 50, bacteria 4+. CXR showed no acute cardiapulmonary disease. EKG demonstrated bigeminy with no evidence of ST elevations or depressions. Pt was treated with sepsis bolus of IVF, ceftriaxone, vancomycin, and acetaminophen. Pt will be admitted to the hospital for treatment with IV antibiotics and IVF of severe sepsis in the setting UTI in a patient with a hx of MRSA bacteremia. hospital course: admitted to the hospital for treatment with IV antibiotics and IVF for severe sepsis in the setting UTI in a patient with a hx of MRSA bacteremia. Sepsis in the setting of UTI likely related to indwelling Moreau catheter patient admitted to medical floor treated IV ceftriaxone and IV vancomycin due to prior history of MRSA urine in August of 2022 urine and blood culture grew E coli, patient remained hemodynamically stable with no recurrent episodes of fever WBC normalized therefore he is being discharged home on Ceftin 250 mg 1 tablet twice daily to finish the course of antibiotics recommend to change Moreau catheter acute 30 days. Acute metabolic encephalopathy, Pleasantly confused, verbalizing but do not make sense, likely at baseline with advanced dementia alert and oriented to staff only,Encephalopathy was Likely secondary to UTI. Acute hypokalemia repleted and normalized. Elevated creatinine, no DOUGLAS treated with IV fluids creatinine returned to baseline. Hypotension on admission resolved with IV fluids. Paroxysmal AFib recommend to continue Eliquis and diltiazem. In regard to GERD, benign prostate hypertrophy, mood disorder continue all home medications as before. Unspecified dementia no behavioral issues noted Time Spent with Patient Time attestation: Total time managing care of this patient today ____ minutes. Discharge coordination time: Greater than 30 minutes Quality: Safe Use of Opioids Does Pt have an Active Cancer Diagnosis on the Problem List?: No Quality: Stroke Does the patient have a stroke diagnosis?: No Physical Exam Vital Signs: Vital Signs: Last Vital Signs Temp 98.3 F 02/21/23 07:47 Pulse 50 02/21/23 07:47 Resp 16 02/21/23 07:47 BP 124/75 02/21/23 07:47 Pulse Ox 98 02/21/23 07:47 O2 Del Method Room Air 02/21/23 07:47 BMI result Body Mass Index 16.3 Const: Other: General resting comfortably in no acute distress.? Neck? supple no JVD. CVS? regular rate rhythm, Respiratory lungs clear to auscultation, no respiratory distress, no wheeze, no rhonchi. Gastrointestinal abdomen soft, non tender, bowel sounds audible,? no guarding , no rigidity. Extremities no? edema. Neuro nonfocal , moving all 4 extremity, speech clear. Skin no rash Psych poor insight, baseline confusion Moreau catheter clear urine DS: Data Data Completed and Pending Completed studies during hospitalization [Text1]: Procedures Insertion of Infusion Device into Superior Vena Cava, Percutaneous Approach (08/03/22) Ultrasonography of Superior Vena Cava, Guidance (08/03/22) Labs on day of discharge: Laboratory Results - last 24 hr 02/21/23 02/21/23 05:56 05:56 Creatinine 1.06 Estim Creat Clear Calc 38.9 Estimated GFR > 60 Vancomycin Trough 13.9 Discharge Plan Discharge Anticipated Discharge Date/Time: 02/21/23 10:09 Patient Disposition: Xfer [facility] Discharge Diagnosis: sepsis due to UTI with chronic indwelling Moreau catheter acute metabolic encephalopathy hypokalemia Referrals: Rajesh Son MD [Primary Care Provider] - 1 Week Discharge Medications: New cefuroxime axetil 250 mg tablet 500 mg PO BID Qty: 24 0RF Continued cyanocobalamin (vitamin B-12) 1,000 mcg Tablet 1,000 mcg PO DAILY famotidine 20 mg Tablet 20 mg PO BID tamsulosin [Flomax] 0.4 mg Capsule 0.4 mg PO DAILY diltiazem HCl 120 mg Capsule,Extended Release 24hr 120 mg PO DAILY mirtazapine 15 mg Tablet 15 mg PO BEDTIME finasteride 5 mg Tablet 5 mg PO DAILY Eliquis 2.5 mg Tablet 2.5 mg PO BID acetaminophen [Tylenol] 325 mg Tablet 650 mg PO Q6H PRN (Reason: Fever Or Pain) Rx Instructions: DO NOT EXCEED 3 G IN 24 HRS sennosides-docusate sodium [Senna with Docusate Sodium] 8.6-50 mg Tablet 2 tab-cap PO BID magnesium hydroxide [Milk of Magnesia] 400 mg/5 mL Suspension 30 ml PO DAILY PRN (Reason: Constipation) bisacodyl 10 mg Suppository 10 mg UT DAILY PRN (Reason: Constipation) Fleet Enema 19-7 gram/118 mL Enema 118 ml UT DAILY PRN (Reason: Constipation) d-mannose 500 mg Capsule 1,000 mg PO BID Discharge Orders: Discharge Order (Routine); Ordered 02/21/23 Ordered By: Krishna Garza Diet: Advance to usual diet Activity on Discharge: As tolerated Stand Alone Forms: Patient Portal Discharge page Care Plan Goals: take Ceftin 1 tablet twice daily as directed, change Moreau catheter acute 30 days Health Concerns: take all home medications as before Plan of Treatment: outpatient follow-up with primary care physician Assessment: as above
--- NOTE | 2023-02-21 10:57 | MHC.CM.PN ---
Second IMM given 02/21, via telephone call to pts guardian Alecia Isabel. Pt is medically cleared for discharge back to [facility] for LTC today. Transportation booked via BLS/Chris at 12:30pm today.
[2023-02-21 11:52] VITALS: BP 136/88; PULSE 62; RESP 18; TEMP 36.9; O2SAT 95
== END 2023-02-21 13:00 | disposition intermediate care facility (04) | DRG 698 ==
LOC: HO.ED 12:13 → HO.EDOVER 12:24 → HO.IMC 14:31
PROVIDERS: Admitting Provider Student in an Organized Health Care Education/Training Program; Emergency Provider Emergency Medicine Emergency Medical Services; PCP Family Medicine; Visit Provider Hospitalist
DX: T83.511A Infection and inflammatory reaction due to indwelling urethral catheter, initial encounter (principal); A41.9 Sepsis, unspecified organism; G93.41 Metabolic encephalopathy; R65.20 Severe sepsis without septic shock; F03.918 Unspecified dementia, unspecified severity, with other behavioral disturbance; E87.0 Hyperosmolality and hypernatremia; N39.0 Urinary tract infection, site not specified; N40.0 Benign prostatic hyperplasia without lower urinary tract symptoms; K21.9 Gastro-esophageal reflux disease without esophagitis; B96.20 Unspecified Escherichia coli [E. coli] as the cause of diseases classified elsewhere; Y73.2 Prosthetic and other implants, materials and accessory gastroenterology and urology devices associated with adverse incidents; E87.6 Hypokalemia; I48.0 Paroxysmal atrial fibrillation; E86.0 Dehydration; I95.9 Hypotension, unspecified; Z86.14 Personal history of Methicillin resistant Staphylococcus aureus infection; Z20.822 Contact with and (suspected) exposure to COVID-19; Z79.01 Long term (current) use of anticoagulants; Z79.899 Other long term (current) drug therapy
CPT/HCPCS: 36415; 71045; 80048; 80053; 80202; 81001; 82565; 83605; 83690; 85025; 85027; 85610; 85730; 87040; 87077; 87086; 87088; 87186; 87205; 87635; 93005; 99285; J0696; J3370; J3371

== ENCOUNTER → 2023-02-18 11:40 | Outpatient (BNV) | payer MEDICARE, MEDICAID, SELFPAY | PROVIDERS: Admitting Provider Student in an Organized Health Care Education/Training Program; Emergency Provider Emergency Medicine Emergency Medical Services; PCP Family Medicine; Visit Provider Student in an Organized Health Care Education/Training Program | DX: N39.0 Urinary tract infection, site not specified (principal) | CPT/HCPCS: 99223; 99233; 99239 ==

== ENCOUNTER 2023-02-23 06:34 | Outpatient (REF) | payer MEDICARE, MEDICAID, SELFPAY ==
[2023-02-23 06:36] LABS: MANUAL DIFF FLAG NO
[2023-02-23 06:51] LABS: Basophils Absolute Auto 0.1 X10*3/uL (0.0-0.2); Basophils Percent Auto 0.6 % (0-2); Eosinophils Absolute Auto 0.4 X10*3/uL (0.0-0.4); Eosinophils Percent Auto 5.2 % (0-4); Hematocrit 32.7 % (42.0-52.0); Hemoglobin 10.7 g/dl (14.0-18.0); Imm Gran Abs Auto 0.04 X10*3/uL (0.00-0.03); Imm Gran Pct Auto 0.5 % (0.0-0.4); Lymphocytes Absolute Auto 2.2 X10*3/uL (1.2-4.9); Lymphocytes Percent Auto 27.9 % (20-40); Mean Corpuscular HGB Conc 32.7 g/dl (31.0-36.0); Mean Corpuscular Hemoglobin 29.3 pg (27.0-33.0); Mean Corpuscular Volume 89.6 fL (80.0-98.0); Mean Platelet Volume 10.1 fL (9.4-12.4); Monocytes Absolute Auto 0.7 X10*3/uL (0.1-1.2); Monocytes Percent Auto 8.7 % (2-11); Neutrophils Absolute Auto 4.5 x10*3/uL (2.0-8.3); Neutrophils Percent Auto 57.1 % (45-73); Platelet Count 323 X10*3/uL (160-400); Red Blood Count 3.65 X10*6/uL (4.60-5.80); Red Cell Distribution Width 13.1 % (11.0-16.0); White Blood Count 7.9 X10*3/uL (4.8-10.8)
[2023-02-23 07:05] LABS: Anion Gap 12 (12-20); Blood Urea Nitrogen 12 mg/dL (9-16); Calcium 8.5 mg/dL (8.4-10.2); Carbon Dioxide 24 mmol/L (22-29); Chloride 110 mmol/L (96-108); Estimated Glomerular Filt Rate > 60; Glucose Random 84 mg/dL (60-115); Potassium 3.3 mmol/L (3.3-5.1); Sodium 143 mmol/L (135-145)
[2023-02-23 07:35] LABS: Vitamin B12 1911 pg/mL (200-900)
== END 2023-02-23 06:35 | disposition home or self-care (01) ==
LOC: HO.MMNH3L 06:34
PROVIDERS: Visit Provider Family Medicine
DX: I48.91 Unspecified atrial fibrillation (principal); I10 Essential (primary) hypertension; N40.1 Benign prostatic hyperplasia with lower urinary tract symptoms
CPT/HCPCS: 36415; 80048; 82607; 85025

== ENCOUNTER 2023-05-14 06:09 | Outpatient (REF) | payer MEDICARE, MEDICAID, SELFPAY ==
[2023-05-14 06:52] LABS: Appearance Urine Turbid; Color Urine Yellow; Glucose Urine UA Negative (Negative); Leukocyte Esterase Urine Large (3+) (Negative); Nitrite Urine Positive (Negative); PH >= 9.0 (5.0-9.0); UMIC TRIGGER UA YES; Urine Blood Moderate (2+) (Negative); Urine Ketones Negative (Negative); Urine Protein 100 (2+) mg/dL (Neg-Trace)
[2023-05-14 07:11] LABS: Bacteria Urine 4+ (None Seen); Other Crystals Urine Present; RBC Urine >20 /HPF (0-2); Squamous Epithelial Cell Urine 0-2 /HPF (0-2)
== END 2023-05-14 06:10 | disposition home or self-care (01) ==
LOC: HO.MMNH3L 06:09
PROVIDERS: Visit Provider Family Medicine
DX: I10 Essential (primary) hypertension (principal); R30.0 Dysuria
CPT/HCPCS: 81001; 87086; 87088; 87186

== ENCOUNTER 2023-06-13 06:07 | Inpatient (IN) | payer MEDICARE, MEDICAID, SELFPAY ==
[2023-06-13] VITALS (9 sets, daily range): BP systolic 95–128; BP diastolic 66–88; PULSE 82–126; RESP 16–20; TEMP 37.4–39; O2SAT 93–99; BMI 18.3
--- NOTE | ~2023-06-13 | XR_ITS ---
EXAMINATION: XR CHEST CLINICAL INFORMATION: Shortness of breath COMPARISON: Previous chest x-ray February 2023 TECHNIQUE: Frontal view of the chest was obtained. FINDINGS: The cardiac and mediastinal contours are stable. Atherosclerotic disease. The lungs are clear. No pleural effusion or pneumothorax. Degenerative changes of the spine and right shoulder. XR/XR chest 1V IMPRESSION: No evidence for acute disease in the chest.
--- NOTE | 2023-06-13 06:16 | ECG_ITS ---
Test Reason : sepsis Blood Pressure : / mmHG Vent. Rate : 110 BPM Atrial Rate : 110 BPM P-R Int : 188 ms QRS Dur : 082 ms QT Int : 320 ms P-R-T Axes : 050 -67 080 degrees QTc Int : 433 ms Sinus tachycardia with Premature atrial complexes Left axis deviation Nonspecific T wave abnormality Abnormal ECG When compared with ECG of 18-FEB-2023 04:10, Premature atrial complexes are now Present T wave inversion now evident in Lateral leads Referred By: Gela Tirado Electronically Signed By:BRUNA SINGH
--- NOTE | 2023-06-13 06:41 | ED_ITS ---
HPI - General Adult General Chief complaint: Altered Mental Status Stated complaint: SEPSIS ALERT Time Seen by Provider: 06/13/23 06:35 Source: patient and EMS Mode of arrival: EMS Limitations: altered mental status History of Present Illness HPI narrative: Patient is a 77 year old assigned male at with a history of dementia, atrial fibrillation, and BPH presenting to the emergency department today with increased confusion and ornelas catheter removal. EMS states that the patient comes from [facility] with worsening confusion and forceful removal of a ornelas catheter. SNF staff states that the patient has been acting more confused and ripped his own catheter out. Patient denies any complaints and says he just wants water. SNF staff he was last known normal over 30 hours prior to his arrival at the hospital today. Treatments prior to arrival: none Related Data Home Medications Medication Instructions Recorded Confirmed apixaban 2.5 mg tablet (Eliquis) 2.5 mg PO BID 08/03/22 06/13/23 cyanocobalamin (vitamin B-12) 1,000 mcg PO DAILY 08/03/22 06/13/23 1,000 mcg tablet famotidine 20 mg tablet 20 mg PO BID 08/03/22 06/13/23 finasteride 5 mg tablet 5 mg PO DAILY 08/03/22 06/13/23 mirtazapine 15 mg tablet 15 mg PO BEDTIME 08/03/22 06/13/23 tamsulosin 0.4 mg capsule (Flomax) 0.4 mg PO DAILY 08/03/22 02/18/23 acetaminophen 325 mg tablet 650 mg PO Q6H PRN Fever Or Pain 02/18/23 06/13/23 (Tylenol) bisacodyl 10 mg rectal suppository 10 mg [place] DAILY PRN Constipation 02/18/23 06/13/23 d-mannose 500 mg capsule 1,000 mg PO BID 02/18/23 06/13/23 magnesium hydroxide 400 mg/5 mL 30 ml PO DAILY PRN Constipation 02/18/23 06/13/23 oral suspension (Milk of Magnesia) sennosides 8.6 mg-docusate sodium 2 tab-cap PO BID 02/18/23 06/13/23 50 mg tablet (Senna with Docusate Sodium) sodium phosphates 19 gram-7 118 ml [place] DAILY PRN Constipation 08/17/23 12/10/23 gram/118 mL enema (Fleet Enema) diltiazem HCl 120 mg 120 mg PO DAILY 06/13/23 06/13/23 capsule,extended release 12 hr Allergies Allergy/AdvReac Type Severity Reaction Status Date / Time No Known Allergies Allergy Verified 06/13/23 06:34 Review of Systems 2 Review of Systems: Yes Other (patient has dementia at baseline and is altered) Constitutional: Constitutional: Reports fever(s) Eyes: Eyes: Denies eye discharge and Denies loss of vision ENT: Denies dizziness and Denies hearing loss Cardiovascular: Cardiovascular: Denies dyspnea Respiratory: Respiratory: Denies dyspnea Gastrointestinal: Gastrointestinal: Reports no additional gastrointestinal complaints, Denies abdominal pain, Denies melena, Denies hematochezia, Denies change in bowel habits and Denies change in stool character Genitourinary: Genitourinary: Reports no additional male genitourinary complaints and Reports hematuria Comments: ornelas catheter in place with blood in bag Musculoskeletal: Musculoskeletal: Reports no additional musculoskeletal complaints, Denies numbness and Denies tingling Neurologic: Reports confusion (per his baseline), Denies dizziness, Denies loss of vision, Denies numbness and Denies tingling Psychiatric: Psychiatric: Reports no additional psychiatric complaints and Reports confusion (per his baseline) Endocrine: Endocrine: Reports no additional endocrine complaints Hematologic/Lymphatic: Hematologic/Lymphatic: Reports no additional hematologic/lymphatic complaints Allergic/Immunologic: Allergic/Immunologic: Reports no additional allergic/immunologic complaints [facility] Past Medical History Attestation statement: The following information was validated with the patient. (all information validated with SNF staff) Source: old records reviewed, nursing notes reviewed and other (SNF staff and EMS provided history.) Medical History BPH (benign prostatic hyperplasia) Hx of alf use of blood thinners Atrial fibrillation Dementia Social History Social History Household Members: Other Housing: Detention Do you presently have visiting nurse or other home services: No Unable to assess alcohol history related to: Unknown Alcohol intake: never Comment: very disoriented. impulsive. Patient Tobacco Use Status: Tobacco use Unknown Second Hand Smoke Exposure: No Advance Directives: Yes Advance Directives Information Provided: Yes Advance Directives on File: No service: No Current occupational status: disabled Physical Exam ED Vital Signs: Vital Signs - 24 hr 06/13/23 06:17 06/13/23 07:46 06/13/23 08:28 Temperature 102.2 F H 99.8 F Pulse Rate 118 H 92 91 Respiratory Rate 20 18 18 Blood Pressure 128/88 120/78 114/76 Pulse Oximetry 93 96 96 Oxygen Delivery Method Room Air Room Air Room Air BMI result Body Mass Index 18.3 Const General: confusion (per his baseline) Nutritional Appearance: cachectic Orientation/consciousness: confusion (per his baseline) Limitations: altered mental status (patient is demented at baseline) [facility] Head: Yes normal to inspection and Yes atraumatic Ears: hearing grossly normal bilaterally and external ears normal General nose exam: Normal external nose present, no nasal discharge noted and no epistaxis Face and sinus: Yes normal facial exam, No abrasion and No laceration Mouth: Normal oral and palatal mucosa present, no drooling and no muffled voice Eyes General: appearance normal, both eyes and all related structures Periorbital: periorbital findings normal Eyelids: Yes eyelids normal Conjunctivae: conjunctivae normal Pupils: Equal, round and reactive pupils present EOM: EOMs intact bilaterally Neck Neck: Yes normal visual inspection, Yes full ROM and Yes no lymphadenopathy Chest Chest palpation & inspection: normal inspection of the chest Resp Effort & Inspection: normal respiratory effort and able to speak in complete sentences Auscultation: clear to auscultation bilaterally Cardio Rate: regular rate Rhythm: abnormal rhythm regularly irregular GI Inspection: Yes normal to inspection Palpation (GI): Soft to palpation, not firm and nontender Other: ornelas catheter in place with blood in the bag and around the head of the penis Neuro General: confusion (per his baseline) Cranial nerves: Yes Equal, round and reactive pupils present Cognition (Neuro): normal cognition Motor exam (neuro): 5/5 motor strength present throughout Sensory Exam: Normal double simultaneous stimulation for sensation Coordination: [id number] test normal Extrem General: Yes normal to inspection, Yes full ROM and Yes capillary refill normal Psych Appearance: grossly normal Mental Status: mental status grossly normal Affect: normal affect Attitude: cooperative Thought process: Normal thought process present Thought content: Normal thought content present Insight: Good insight present (Psych) Medications Administered Discontinued Medications Generic Name Dose Route Start Last Admin Trade Name Freq PRN Reason Stop Dose Admin Acetaminophen 650 mg 06/13/23 07:21 06/13/23 08:28 Acetaminophen 325 Mg Tablet PO 06/13/23 07:22 Not Given ONCE ONE Ceftriaxone Sodium 1 gm/ 50 mls @ 100 mls/hr 06/13/23 06:41 06/13/23 08:15 Sodium Chloride IV 06/13/23 07:10 Infused ONCE ONE Infusion Sodium Chloride 1,000 mls @ 999 mls/hr 06/13/23 07:15 06/13/23 08:15 Ns IV 06/13/23 08:15 Infused .Q1H1M CHRISS Infusion Lorazepam 2 mg 06/13/23 07:05 06/13/23 07:12 Lorazepam 2 Mg/Ml Vial IVPUSH 06/13/23 07:06 2 mg ONCE ONE Administration Medical Decision Making Medical Decision Making [facility] Narrative: Patient is a 77 year old assigned male at with a history of dementia, atrial fibrillation, and BPH presenting to the emergency department today with altered mental status and need for replacement of his ornelas catheter. Patient's physical exam was as noted in the physical exam portion of this note. Patient's blood work showed an elevated BUN of 23, elevated WBC count of 13.7, and 35% bands. Rest of the patient's blood work was unremarkable. Patient's urine showed a urinary tract infection. Patient's EKG was unremarkable. Patient's chest x-ray showed no acute process. I became concerned of possible sepsis @0640 and ensured to order IV ABX. I spoke to the hospitalist team who agreed to admission. I explained my physical exam findings as well as all test results to the patient. I answered all questions asked by the patient. Patient verbalized agreement with this treatment plan and admission. Differential Diagnosis Differential Diagnoses: The differential diagnosis associated with the presentation includes UTI AMS Sepsis Admission/Observation Consideration of admission/observation: Escalation of care including admission/observation considered Patient admitted. Lab Data [facility] Lab Attestation statement: I reviewed the patient's lab results. My interpretation of these results are in the MDM Rationale portion of this note. 06/13/23 06:47 06/13/23 06:47 Labs: Lab Results 06/13/23 06/13/23 06/13/23 Range/Units 06:47 07:30 08:11 WBC 13.7 H (4.8-10.8) X10*3/uL RBC 4.35 L (4.60-5.80) X10*6/uL Hgb 13.0 L D (14.0-18.0) g/dl Hct 38.6 L (42.0-52.0) % MCV 88.7 (80.0-98.0) fL MCH 29.9 (27.0-33.0) pg MCHC 33.7 (31.0-36.0) g/dl RDW 12.8 (11.0-16.0) % Plt Count 236 D (160-400) X10*3/uL MPV 9.9 (9.4-12.4) fL Immature Gran % (Auto) Cancelled Neut % (Auto) Cancelled Lymph % (Auto) Cancelled [place] % (Auto) Cancelled Eos % (Auto) Cancelled Baso % (Auto) Cancelled Lymph # (Auto) Cancelled [place] # (Auto) Cancelled Eos # (Auto) Cancelled Baso # (Auto) Cancelled Abs Immat Gran (auto) Cancelled Absolute Neuts (auto) Cancelled Absolute Nucleated RBC 0.000 (0.0-0.012) X10*3/uL Nucleated RBC % (auto) 0.0 (0.0-0.2) /100WBC Neutrophils % (Manual) 61 (45-73) % Band Neutrophils % 35 H (3-5) % Lymphocytes % (Manual) 4 L (20-40) % Abs Neuts (Manual) 13.2 H (2.0-8.3) X10*3/uL Lymphocytes # (Manual) 0.5 L (1.2-4.9) X10*3/uL Toxic Vacuolation PRESENT Platelet Estimate NORMAL (NORMAL) Large Platelets PRESENT Plt Morphology Comment NOTED RBC Morphology NORMAL Smear Tech's Comments VERIFIED PT 15.2 H (11.1-13.3) SEC INR 1.3 H (0.9-1.1) Sodium 144 (135-145) mmol/L Potassium 3.6 (3.3-5.1) mmol/L Chloride 109 H (96-108) mmol/L Carbon Dioxide 21 L (22-29) mmol/L Anion Gap 18 (12-20) BUN 23 H (9-16) mg/dL Creatinine 1.07 (0.5-1.4) mg/dL Estim Creat Clear Calc 40.7 Estimated GFR > 60 Random Glucose 75 (60-115) mg/dL Lactic Acid 2.0 (0.5-2.0) mmol/L Calcium 9.4 D (8.4-10.2) mg/dL Total Bilirubin 1.1 H (0.0-1.0) mg/dL AST 25 (5-37) U/L ALT 23 (0-40) U/L Alkaline Phosphatase 78 (39-117) U/L Total Protein 7.0 (6.5-8.0) g/dL Albumin 3.9 (3.5-5.0) g/dL Urine Color RED Urine Appearance Turbid Urine pH >= 9.0 (5.0-9.0) Ur Specific [place] 1.010 (1.005-1.025) Urine Protein 300 (3+) H (Neg-Trace) mg/dL Urine Glucose (UA) Negative (Negative) mg/dL Urine Ketones Negative (Negative) mg/dL Urine Blood Large (3+) H (Negative) Urine Nitrite Positive H (Negative) Ur Leukocyte Esterase Moderate (2+) H (Negative) Urine RBC >20 H (0-2) /HPF Urine WBC 21-50 H (0-5) /HPF Ur Squamous Epith Cells 0-2 (0-2) /HPF Urine Bacteria 2+ (None Seen) Hyaline Casts 0-2 (0-2) /LPF COVID-19 (CROW) Negative (Negative) COVID-19 Clin Com See Note Influenza Type A (MEGA) Negative (Negative) Influenza Type B (MEGA) Negative (Negative) Influenza A & B Note See Note Independent Interpretation I performed an independent interpretation of an: EKG and Plain X-Ray Interpretation: My interpretation is in agreement with the radiologist's impression of this imaging study. - EXAMINATION: XR CHEST CLINICAL INFORMATION: Shortness of breath COMPARISON: Previous chest x-ray February 2023 TECHNIQUE: Frontal view of the chest was obtained. FINDINGS: The cardiac and mediastinal contours are stable. Atherosclerotic disease. The lungs are clear. No pleural effusion or pneumothorax. Degenerative changes of the spine and right shoulder. XR/XR chest 1V IMPRESSION: No evidence for acute disease in the chest. Dictated By: Gela Kim MD Signed By: Electronically signed by Gela Kim MD 06/13/23 0938 - Vent. Rate: 110 BPM Atrial Rate: 110 BPM P-R Int: 188 ms QRS Dur: 082 ms QT Int: 320 ms P-R-T Axes: 050 -67 080 degrees QTc Int: 433 ms Sinus tachycardia with Premature atrial complexes Left axis deviation Nonspecific T wave abnormality Abnormal ECG When compared with ECG of 18-FEB-2023 04:10, Premature atrial complexes are now Present T wave inversion now evident in Lateral leads DD/ 0644 Radiology Impression Discussion of test interpretation with radiology: I have reviewed the radiologist's reading. Independent Historian Clinical information obtained from an independent historian. History obtained from or confirmed by: EMS (EMS provided additional history and confirmed the history provided by the SNF staff) and Other (SNF staff provided additional history and confirmed the history provided by the SNF staff) Critical Care Time Critical Care Time Critical Care Time: Yes Total Critical Care Time: 45 Attestation: I spent 45 minutes of Critical Care Time with this patient. This does not include time spent on separately reported billable procedures. Discharge Plan Discharge Clinical Impression: Urinary tract infection, Dementia, Sepsis Patient Disposition: Admitted As Inpatient
--- NOTE | 2023-06-13 06:53 | PC.NURSE ---
Pt A&O to self, reports lower ABD pain. BRB draining from penies. Bladder scan 469 mL. 16 f COUDE placed draining 700 mL of BRB. Per Dr. Tirado external trauma, no 3 way cath at this time . Pt febrile at this.
[2023-06-13 06:58] LABS: Hematocrit 38.6 % (42.0-52.0); Mean Corpuscular HGB Conc 33.7 g/dl (31.0-36.0); Mean Corpuscular Hemoglobin 29.9 pg (27.0-33.0); Mean Corpuscular Volume 88.7 fL (80.0-98.0); Mean Platelet Volume 9.9 fL (9.4-12.4); Platelet Count 236 X10*3/uL (160-400); Red Blood Count 4.35 X10*6/uL (4.60-5.80); Red Cell Distribution Width 12.8 % (11.0-16.0); White Blood Count 13.7 X10*3/uL (4.8-10.8)
[2023-06-13 07:04] LABS: INTERNATIONAL NORM RATIO 1.3 (0.9-1.1); Prothrombin Time 15.2 SEC (11.1-13.3)
[2023-06-13] MEDS: 0.9 % Sodium Chloride 1,000 ML 999 ML IV (07:12)
[2023-06-13] MEDS: LORazepam 2 MG/ML VIAL IVPUSH (07:12)
[2023-06-13 07:23] LABS: Alanine Aminotransferase 23 U/L (0-40); Albumin Level 3.9 g/dL (3.5-5.0); Alkaline Phosphatase 78 U/L (39-117); Anion Gap 18 (12-20); Aspartate Amino Transferase 25 U/L (5-37); Bilirubin Total 1.1 mg/dL (0.0-1.0); Blood Urea Nitrogen 23 mg/dL (9-16); Calcium 9.4 mg/dL (8.4-10.2); Carbon Dioxide 21 mmol/L (22-29); Chloride 109 mmol/L (96-108); Creatinine Clr Calc Pharmacy 40.7; Estimated Glomerular Filt Rate > 60; Glucose Random 75 mg/dL (60-115); Potassium 3.6 mmol/L (3.3-5.1); Sodium 144 mmol/L (135-145)
[2023-06-13] MEDS: cefTRIAXone sodium 1 GM in 0.9 % Sodium Chloride 50 ML IV (07:25)
--- NOTE | 2023-06-13 07:43 | PC.NURSE ---
patient coninuously requesting water, this RN out of room to obtain cup of water and patient was attempting to get out of bed at the time. redirected back into bed, agitated and slapping head requesting water. water provided for patient. medicated per the ESTELLE
[2023-06-13 07:57] LABS: Appearance Urine Turbid; Color Urine RED; Glucose Urine UA Negative (Negative); Leukocyte Esterase Urine Moderate (2+) (Negative); Nitrite Urine Positive (Negative); PH >= 9.0 (5.0-9.0); UMIC TRIGGER UACC YES; Urine Blood Large (3+) (Negative); Urine Ketones Negative (Negative); Urine Protein 300 (3+) mg/dL (Neg-Trace)
[2023-06-13 08:08] LABS: Neutrophils Percent Manual 61 % (45-73)
[2023-06-13 08:10] LABS: Band Neutrophils Percent 35 % (3-5); Large Platelet PRESENT; Lymphocytes Absolute Manual 0.5 X10*3/uL (1.2-4.9); Lymphocytes Percent Manual 4 % (20-40); Neutrophils Absolute Manual 13.2 X10*3/uL (2.0-8.3); Platelet Estimate NORMAL (NORMAL); Platelet Morphology Comment NOTED; RBC Morphology NORMAL; Toxic Vacuolation PRESENT
[2023-06-13 08:11] LABS: COVID-19 Test Negative (Negative); IDNOW Serial# 08D9AD1C; IDNOW Serial# BCCEAD1C; Influenza A Negative (Negative); Influenza B2 Negative (Negative)
[2023-06-13 08:11] LABS: SLIDE REVIEW VERIFIED
[2023-06-13 08:18] LABS: Bacteria Urine 2+ (None Seen); Hyaline Casts Urine 0-2 /LPF (0-2); RBC Urine >20 /HPF (0-2); Squamous Epithelial Cell Urine 0-2 /HPF (0-2); UACC Culture Trigger YES; WBC Urine 21-50 /HPF (0-5)
--- NOTE | 2023-06-13 10:31 | PHA.MEDREC ---
Pharmacy Consult ? Medication Reconciliation Pharmacy has completed the medication reconciliation.
--- NOTE | 2023-06-13 10:43 | PM.IMHP ---
History of Present Illness Date of Service: 06/13/23 Chief Complaint: ams, fever 77M PMH dementia from LTC, bph, paroxysmal afib, chronic urinary retention with ornelas, htn, presented with ams and fever. patient had 1 day history of increased agitation, pulled out his chronic ornelas, found to have fever, in ED, found to be septic, positive ua. patient unable to provide history himself. Review of Systems Review of Systems: Yes all other systems are reviewed and are negative and Unobtainable due to mental condition [facility] Medical History BPH (benign prostatic hyperplasia) Hx of longterm use of blood thinners Atrial fibrillation Dementia Social History Household Members: Other Housing: Retirement Do you presently have visiting nurse or other home services: No Unable to assess alcohol history related to: Unknown Alcohol intake: never Comment: very disoriented. impulsive. Patient Tobacco Use Status: Tobacco use Unknown Second Hand Smoke Exposure: No Advance Directives: Yes Advance Directives Information Provided: Yes Advance Directives on File: No service: No Current occupational status: disabled Meds Allergies Allergy/AdvReac Type Severity Reaction Status Date / Time No Known Allergies Allergy Verified 06/13/23 06:34 Active Medications: Current Medications Acetaminophen (Acetaminophen 325 Mg Tablet) 650 mg PO Q6H PRN PRN Reason: Fever Or Pain Apixaban (Apixaban 2.5 Mg Tablet) 2.5 mg PO BID [facility] Bisacodyl (Bisacodyl 10 Mg Supp.Rect) 10 mg [place] DAILY PRN PRN Reason: Constipation Cyanocobalamin (Cyanocobalamin (Vitamin B-12) 1,000 Mcg Tablet) 1,000 mcg PO DAILY [facility] Diltiazem HCl (Diltiazem Hcl Cd 120 Mg Cap.Er.Deg) 120 mg PO DAILY [facility]; Protocol Famotidine (Famotidine 20 Mg Tablet) 20 mg PO BID [facility] Finasteride (Finasteride 5 Mg Tablet) 5 mg PO DAILY [facility] Ceftriaxone Sodium 1 gm/ (Sodium Chloride) 50 mls @ 100 mls/hr IV Q24H [facility] Magnesium Hydroxide (Milk Of Magnesia 30 Ml Oral.Susp) 30 ml PO DAILY PRN PRN Reason: Constipation Mirtazapine (Mirtazapine 15 Mg Tablet) 15 mg PO BEDTIME [facility] Non-Formulary Medication (D-Mannose) 1,000 mg PO BID [facility] Senna/Docusate Sodium (Sennosides/Docusate Sodium Tablet) 2 tab PO BID [facility] Sodium Biphosphate/Sodium Phosphate (Sodium Phosphate,[place]-Dibasic 133 Ml Enema) 118 ml [place] DAILY PRN PRN Reason: Constipation Home Medications Medication Instructions Recorded Confirmed Last Taken Type apixaban 2.5 mg tablet (Eliquis) 2.5 mg PO BID 08/03/22 06/13/23 Unknown History cyanocobalamin (vitamin B-12) 1,000 mcg PO DAILY 08/03/22 06/13/23 Unknown History 1,000 mcg tablet famotidine 20 mg tablet 20 mg PO BID 08/03/22 06/13/23 Unknown History finasteride 5 mg tablet 5 mg PO DAILY 08/03/22 06/13/23 Unknown History mirtazapine 15 mg tablet 15 mg PO BEDTIME 08/03/22 06/13/23 Unknown History tamsulosin 0.4 mg capsule (Flomax) 0.4 mg PO DAILY 08/03/22 02/18/23 Unknown History acetaminophen 325 mg tablet 650 mg PO Q6H PRN Fever Or Pain 02/18/23 06/13/23 Unknown History (Tylenol) bisacodyl 10 mg rectal suppository 10 mg [place] DAILY PRN Constipation 02/18/23 06/13/23 Unknown History d-mannose 500 mg capsule 1,000 mg PO BID 02/18/23 06/13/23 Unknown History magnesium hydroxide 400 mg/5 mL 30 ml PO DAILY PRN Constipation 02/18/23 06/13/23 Unknown History oral suspension (Milk of Magnesia) sennosides 8.6 mg-docusate sodium 2 tab-cap PO BID 02/18/23 06/13/23 Unknown History 50 mg tablet (Senna with Docusate Sodium) sodium phosphates 19 gram-7 118 ml [place] DAILY PRN Constipation 02/18/23 06/13/23 Unknown History gram/118 mL enema (Fleet Enema) diltiazem HCl 120 mg 120 mg PO DAILY 06/13/23 06/13/23 Unknown History capsule,extended release 12 hr Physical Exam Vital Signs and Narrative: Vital Signs: Last Vital Signs Temp 99.8 F 06/13/23 08:28 Pulse 91 06/13/23 08:28 Resp 18 06/13/23 08:28 BP 114/76 06/13/23 08:28 Pulse Ox 96 06/13/23 08:28 O2 Del Method Room Air 06/13/23 08:28 BMI result Body Mass Index 18.3 Results Labs 06/13/23 06:47 06/13/23 06:47 Labs: Laboratory Results - last 24 hr 06/13/23 06/13/23 06/13/23 06:47 07:30 08:11 MCV 88.7 MCH 29.9 MCHC 33.7 RDW 12.8 Plt Count 236 D MPV 9.9 Immature Gran % (Auto) Cancelled Neut % (Auto) Cancelled Lymph % (Auto) Cancelled [place] % (Auto) Cancelled Eos % (Auto) Cancelled Baso % (Auto) Cancelled Lymph # (Auto) Cancelled [place] # (Auto) Cancelled Eos # (Auto) Cancelled Baso # (Auto) Cancelled Abs Immat Gran (auto) Cancelled Absolute Neuts (auto) Cancelled Absolute Nucleated RBC 0.000 Nucleated RBC % (auto) 0.0 Neutrophils % (Manual) 61 Band Neutrophils % 35 H Lymphocytes % (Manual) 4 L Abs Neuts (Manual) 13.2 H Lymphocytes # (Manual) 0.5 L Toxic Vacuolation PRESENT Platelet Estimate NORMAL Large Platelets PRESENT Plt Morphology Comment NOTED RBC Morphology NORMAL Smear Tech's Comments VERIFIED PT 15.2 H INR 1.3 H Anion Gap 18 Estim Creat Clear Calc 40.7 Estimated GFR > 60 Random Glucose 75 Lactic Acid 2.0 Calcium 9.4 D Total Bilirubin 1.1 H AST 25 ALT 23 Alkaline Phosphatase 78 Total Protein 7.0 Albumin 3.9 Urine Color RED Urine Appearance Turbid Urine pH >= 9.0 Ur Specific [place] 1.010 Urine Protein 300 (3+) H Urine Glucose (UA) Negative Urine Ketones Negative Urine Blood Large (3+) H Urine Nitrite Positive H Ur Leukocyte Esterase Moderate (2+) H Urine RBC >20 H Urine WBC 21-50 H Ur Squamous Epith Cells 0-2 Urine Bacteria 2+ Hyaline Casts 0-2 COVID-19 (CROW) Negative COVID-19 Clin Com See Note Influenza Type A (MEGA) Negative Influenza Type B (MEGA) Negative Influenza A & B Note See Note Imaging Radiologist's Impressions: Impressions Chest X-Ray 06/13/23 08:50 IMPRESSION: No evidence for acute disease in the chest. Assessment and Plan (1) Urinary tract infection: Status: Acute Plan 77M PMH dementia from LTC, bph, paroxysmal afib, chronic urinary retention with ornelas, htn, presented with ams and fever Sepsis and acute metabolic encephalopathy secondary to urinary tract infection patient with chronic Ornelas Ornelas replaced, continue ceftriaxone, cultures BPH with chronic urinary retention Ornelas replaced Proscar Paroxysmal atrial fibrillation Diltiazem and Eliquis Hypertension Continue diltiazem Dementia unspecified DVT prophylaxis-on Eliquis Full code Patient is septic and at risk for further decompensation due to frailty and advanced age, therefore, expected to require at least 2 midnights inpatient Quality Stroke Does the patient have a stroke diagnosis?: No VTE Prior VTE?: No VTE Risk Level:: Medical - moderate - high VTE Device Contraindication: Treatment Not Indicated VTE Drug Contraindication: Treatment Not Indicated
--- NOTE | 2023-06-13 11:12 | PC.NURSE ---
pt currently/resting/asleep in no apparent distress. pt being calm/cooperative at this time. respirations even and unlabored. call sood placed within reach.
--- NOTE | 2023-06-13 12:36 | PC.NURSE ---
pt awake/pleasantly confused. vss and up to date. nsr on the monitor tech. pt remains calm/cooperative during this time. pt has no complaints/denies pain. no sob/wob noted. respirations remain even and unlabored. call sood placed within reach.
--- NOTE | 2023-06-13 15:29 | PC.NURSE ---
pt continues to rest in no apparent distress. pt c/o no pain. remains calm/cooperative. respirations remain even and unlabored. pt awaiting admission upstairs at this time. 700ml of dark red urine noted from ornelas catheter bag/documented in I&O section. call sood placed within reach.
[2023-06-13] MEDS: 0.9 % Sodium Chloride Flush 3 ML SYRINGE IVFLUSH ×2 (17:16→23:38)
--- NOTE | 2023-06-13 17:40 | PC.NURSE ---
dried blood around catheter insertion site/tip of penis. dried blood stuck to pt's inner thighs. pt cleaned/new sheets/linen applied.
[2023-06-13] MEDS: Mirtazapine 15 MG TABLET PO (20:59)
[2023-06-13] MEDS: Sennosides/Docusate Sodium TABLET 2 TAB PO (21:00)
[2023-06-13] MEDS: Apixaban 2.5 MG TABLET PO (21:00)
[2023-06-13] MEDS: Famotidine 20 MG TABLET PO (21:00)
--- NOTE | 2023-06-13 21:04 | PC.NURSE ---
pt remains pleasantly confused/calm/cooperative. medication administered per provider order. resting comfortably in no apparent distress. respirations remain even/unlabored. awaiting admission upstairs. call sood placed within reach.
--- NOTE | 2023-06-13 23:59 | MHC.EDTECH ---
This tech resumes care for the patient about 2340. Tech and RN helped transfer patient into hospital bed. When rolling the patient to get the old bedding out from under him, this tech found the patient had a some opening on he back said and informed the RN. She covered it, and we continued getting the patient comfortable. once all set, This tech gave him a warm blanket, put belonging next to him on side table. lowered the bed, emptied catheter bag; cleaned it, and placed a pad underneath it. Patient is all set and back to sleep at this time.
--- NOTE | 2023-06-14 00:04 | PC.NURSE ---
Patient transferred from main ED and settled into bed 2. Small open area noted to coccyx area, provider made aware.
--- NOTE | 2023-06-14 04:50 | PC.NURSE ---
This keno writer assumed care of this Pt at 0300. Pt awake at this time, pulling at emesis bag, disoriented states I have to be in [place] or in [place] , Pt easily redirected. F/C intact draining clear urine.
[2023-06-14 06:17] VITALS: BP 135/69; PULSE 74; RESP 17; TEMP 36.9; O2SAT 96
[2023-06-14 07:27] LABS: Hematocrit 33.2 % (42.0-52.0); Hemoglobin 10.9 g/dl (14.0-18.0); Mean Corpuscular HGB Conc 32.8 g/dl (31.0-36.0); Mean Corpuscular Hemoglobin 29.6 pg (27.0-33.0); Mean Corpuscular Volume 90.2 fL (80.0-98.0); Mean Platelet Volume 10.4 fL (9.4-12.4); Platelet Count 178 X10*3/uL (160-400); Red Blood Count 3.68 X10*6/uL (4.60-5.80); Red Cell Distribution Width 13.2 % (11.0-16.0); White Blood Count 15.8 X10*3/uL (4.8-10.8)
[2023-06-14 07:41] LABS: Anion Gap 13 (12-20); Blood Urea Nitrogen 30 mg/dL (9-16); Calcium 8.9 mg/dL (8.4-10.2); Carbon Dioxide 24 mmol/L (22-29); Chloride 110 mmol/L (96-108); Estimated Glomerular Filt Rate 53; Glucose Fasting 81 mg/dL (60-99); Potassium 3.5 mmol/L (3.3-5.1); Sodium 143 mmol/L (135-145)
--- NOTE | 2023-06-14 07:49 | P.PNIM_ITS ---
Subjective Subjective Date of Service: 06/14/23 Interval History: no complaints Physical Exam 2 Vital Signs: Vital Signs: Last Vital Signs Temp 98.4 F 06/14/23 06:17 Pulse 74 06/14/23 06:17 Resp 17 06/14/23 06:17 BP 135/69 06/14/23 06:17 Pulse Ox 96 06/14/23 06:17 O2 Del Method Room Air 06/14/23 06:17 BMI result Body Mass Index 18.3 lethargic, minimally verbal cta bilateral [id number] Objective Data Active Medications Acetaminophen (Acetaminophen 325 Mg Tablet) 650 mg PO Q6H PRN PRN Reason: Fever Or Pain Apixaban (Apixaban 2.5 Mg Tablet) 2.5 mg PO BID [facility] Last Admin: 06/13/23 21:00 Dose: 2.5 mg Documented By: ISABEL Bisacodyl (Bisacodyl 10 Mg Supp.Rect) 10 mg [place] DAILY PRN PRN Reason: Constipation Cyanocobalamin (Cyanocobalamin (Vitamin B-12) 1,000 Mcg Tablet) 1,000 mcg PO DAILY [facility] Diltiazem HCl (Diltiazem Hcl Sr 60 Mg Cap.Er.12h) 120 mg PO DAILY [facility]; Protocol Famotidine (Famotidine 20 Mg Tablet) 20 mg PO BID [facility] Last Admin: 06/13/23 21:00 Dose: 20 mg Documented By: ISABEL Finasteride (Finasteride 5 Mg Tablet) 5 mg PO DAILY [facility] Ceftriaxone Sodium 1 gm/ (Sodium Chloride) 50 mls @ 100 mls/hr IV Q24H [facility] Magnesium Hydroxide (Milk Of Magnesia 30 Ml Oral.Susp) 30 ml PO DAILY PRN PRN Reason: Constipation Mirtazapine (Mirtazapine 15 Mg Tablet) 15 mg PO BEDTIME [facility] Last Admin: 06/13/23 20:59 Dose: 15 mg Documented By: ISABEL Senna/Docusate Sodium (Sennosides/Docusate Sodium Tablet) 2 tab PO BID [facility] Last Admin: 06/13/23 21:00 Dose: 2 tab Documented By: ISABEL Sodium Biphosphate/Sodium Phosphate (Sodium Phosphate,[place]-Dibasic 133 Ml Enema) 118 ml [place] DAILY PRN PRN Reason: Constipation Sodium Chloride (0.9 % Sodium Chloride Flush 3 Ml Syringe) 3 ml IVFLUSH QSHIFT [facility] Last Admin: 06/14/23 07:23 Dose: Not Given Documented By: SAMM Non-Admin Reason: Med Not Available Labs 06/14/23 07:03 06/14/23 07:03 Labs: Laboratory Results - last 24 hr 06/13/23 06/13/23 06/13/23 06:47 07:30 08:11 MCV 88.7 MCH 29.9 MCHC 33.7 RDW 12.8 Plt Count 236 D MPV 9.9 Immature Gran % (Auto) Cancelled Neut % (Auto) Cancelled Lymph % (Auto) Cancelled [place] % (Auto) Cancelled Eos % (Auto) Cancelled Baso % (Auto) Cancelled Lymph # (Auto) Cancelled [place] # (Auto) Cancelled Eos # (Auto) Cancelled Baso # (Auto) Cancelled Abs Immat Gran (auto) Cancelled Absolute Neuts (auto) Cancelled Absolute Nucleated RBC 0.000 Nucleated RBC % (auto) 0.0 Neutrophils % (Manual) 61 Band Neutrophils % 35 H Lymphocytes % (Manual) 4 L Abs Neuts (Manual) 13.2 H Lymphocytes # (Manual) 0.5 L Toxic Vacuolation PRESENT Platelet Estimate NORMAL Large Platelets PRESENT Plt Morphology Comment NOTED RBC Morphology NORMAL Smear Tech's Comments VERIFIED Anion Gap Estim Creat Clear Calc Estimated GFR Fasting Glucose Lactic Acid 2.0 Calcium Urine Color RED Urine Appearance Turbid Urine pH >= 9.0 Ur Specific [place] 1.010 Urine Protein 300 (3+) H Urine Glucose (UA) Negative Urine Ketones Negative Urine Blood Large (3+) H Urine Nitrite Positive H Ur Leukocyte Esterase Moderate (2+) H Urine RBC >20 H Urine WBC 21-50 H Ur Squamous Epith Cells 0-2 Urine Bacteria 2+ Hyaline Casts 0-2 COVID-19 (CROW) Negative COVID-19 Clin Com See Note Influenza Type A (MEGA) Negative Influenza Type B (MEGA) Negative Influenza A & B Note See Note 06/14/23 07:03 MCV 90.2 MCH 29.6 MCHC 32.8 RDW 13.2 Plt Count 178 MPV 10.4 Immature Gran % (Auto) Neut % (Auto) Lymph % (Auto) [place] % (Auto) Eos % (Auto) Baso % (Auto) Lymph # (Auto) [place] # (Auto) Eos # (Auto) Baso # (Auto) Abs Immat Gran (auto) Absolute Neuts (auto) Absolute Nucleated RBC 0.000 Nucleated RBC % (auto) 0.0 Neutrophils % (Manual) Band Neutrophils % Lymphocytes % (Manual) Abs Neuts (Manual) Lymphocytes # (Manual) Toxic Vacuolation Platelet Estimate Large Platelets Plt Morphology Comment RBC Morphology Smear Tech's Comments Anion Gap 13 Estim Creat Clear Calc 33.0 Estimated GFR 53 Fasting Glucose 81 Lactic Acid Calcium 8.9 Urine Color Urine Appearance Urine pH Ur Specific [place] Urine Protein Urine Glucose (UA) Urine Ketones Urine Blood Urine Nitrite Ur Leukocyte Esterase Urine RBC Urine WBC Ur Squamous Epith Cells Urine Bacteria Hyaline Casts COVID-19 (CROW) COVID-19 Clin Com Influenza Type A (MEGA) Influenza Type B (MEGA) Influenza A & B Note Microbiology Microbiology Results: Microbiology 06/13/23 07:21 Blood Culture - Preliminary Blood - Venous Prelim: GNR Gram Stain only 06/13/23 06:47 Blood Culture - Preliminary Blood - Venous Prelim: GNR Gram Stain only Assessment and Plan (1) Sepsis: Status: Acute Plan 77M PMH dementia from LTC, bph, paroxysmal afib, chronic urinary retention with ornelas, htn, presented with ams and fever Sepsis and acute metabolic encephalopathy secondary to urinary tract infection patient with chronic Ornelas with GNR bacteremia Ornelas replaced, continue ceftriaxone, follow up cultures BPH with chronic urinary retention Ornelas replaced Proscar Paroxysmal atrial fibrillation Diltiazem and Eliquis Hypertension Continue diltiazem Dementia unspecified DVT prophylaxis-on Eliquis Full code [facility] Quality Stroke Does the patient have a stroke diagnosis?: No VTE Prior VTE?: No VTE Risk Level:: Medical - moderate - high VTE Device Contraindication: Treatment Not Indicated VTE Drug Contraindication: Treatment Not Indicated
[2023-06-14 08:50] VITALS: BP 126/72; PULSE 66; RESP 16; O2SAT 99
[2023-06-14] MEDS: Sennosides/Docusate Sodium TABLET 2 TAB PO ×2 (08:54→20:46)
[2023-06-14] MEDS: Cyanocobalamin (Vitamin B-12) 1,000 MCG TABLET 1000 MCG PO (08:54)
[2023-06-14] MEDS: Apixaban 2.5 MG TABLET PO ×2 (08:54→20:47)
[2023-06-14] MEDS: dilTIAZem HCL SR 60 MG CAP.ER.12H 120 MG PO (08:54)
[2023-06-14] MEDS: Famotidine 20 MG TABLET PO ×2 (08:54→20:46)
[2023-06-14] MEDS: Finasteride 5 MG TABLET PO (09:00)
[2023-06-14] MEDS: cefTRIAXone sodium 1 GM in 0.9 % Sodium Chloride 50 ML IV (09:05)
--- NOTE | 2023-06-14 09:10 | MHC.CM.PN ---
Addendum entered by Graciela Doll RN 06/14/23 09:12: IMM 06/14 COPY PLACED IN ED MEDICAL RECORDS BIN Original Note: PATIENT IS IN FROM LTC AT [facility] REQUEST MADE FOR IT TO BE FAXED TO [facility] OFFICE IMM 06/14 SENT TO MARILEE THURMAN VIA [employer]PS, SHE PREFERS [facility] NOT TO MAIL CERTIFIED. [facility] FOLLOWING FOR PATIENT'S RETURN TO FACILITY.
--- NOTE | 2023-06-14 10:01 | PC.NURSE ---
assumed care of pt at 0700. pt leathargic, confused, and only oriented to self. pt medicated per mar with po meds, tolerted well. IV in tact and patent. pt has a ornelas, draining clear yellow urine. pt refused breakfast. in bed sleeping. awaiting bed assignment. call sood within reach. plan of care ongoing.
[2023-06-14 10:35] VITALS: TEMP 37.7
--- NOTE | 2023-06-14 10:43 | PC.NURSE ---
300cc empties from pt ornelas pt felt warm to touch. rectal temp taken. 99.8. pt found to be covered in blood from previously pulling out his ornelas. bed change performed and pt cleaned up as much as tolerated. pt started to yell at staff and swatted us away. some blood still on pt.
--- NOTE | 2023-06-14 10:58 | PC.NURSE ---
report completed, awaiting pt transport.
--- NOTE | 2023-06-14 11:06 | PC.NURSE ---
pt becoming increasingly confused and agitated. keeps attempting to get out of bed. asking the same questions.
--- NOTE | 2023-06-14 12:50 | P.CDIM_ITS ---
PROVIDER RESPONSE TEXT: To clarify, the appropriate diagnosis supported by the clinical indicators: UTI associated with the chronic Moreau catheter QUERY TEXT: PHYSICIAN'S DOCUMENTATION REQUEST Date of Query: 06/14/2023 12:34 PM EST Patient Name: Joel Acevedo Admit Date: 06/13/2023 Dear Jacob Rodas, A review of the medical record indicates additional documentation may be needed. Please review below and update the documentation accordingly. Clinical Indicators: Sepsis and acute metabolic encephalopathy secondary to urinary tract infection patient with chronic F oley with GNR bacteremia Moreau replaced, continue ceftriaxone, follow up cultures. Please clarify the relationship between these conditions: UTI due to chronic Moreau catheter UTI associated with the chronic Moreau catheter UTI not related to the Moreau catheter Other (explain) Clinically unable to determine (explain) Thank you, Magro Wilder, CCS, CDIS Use of terms such as suspected, likely, concern for, or probable (associated with a specific diagnosi s that is being evaluated, monitored, or treated as if it exists) are acceptable and can be coded in the inpatient se tting, when documented at the time of discharge. Please use your independent medical judgment in providing your response. THIS QUERY IS PART OF THE PERMANENT MEDICAL RECORD
[2023-06-14 15:26] VITALS: BP 146/77; PULSE 65; RESP 18; TEMP 37.1; O2SAT 96
[2023-06-14] MEDS: 0.9 % Sodium Chloride Flush 3 ML SYRINGE IVFLUSH ×2 (18:27→20:47)
[2023-06-14 20:00] VITALS: BP 129/72; PULSE 74; RESP 18; TEMP 37; O2SAT 96
[2023-06-14] MEDS: Mirtazapine 15 MG TABLET PO (20:46)
[2023-06-15 04:00] VITALS: BP 115/74; PULSE 65; RESP 18; TEMP 37; O2SAT 96
[2023-06-15 06:53] LABS: Hematocrit 33.6 % (42.0-52.0); Hemoglobin 11.2 g/dl (14.0-18.0); Mean Corpuscular HGB Conc 33.3 g/dl (31.0-36.0); Mean Corpuscular Hemoglobin 29.9 pg (27.0-33.0); Mean Corpuscular Volume 89.8 fL (80.0-98.0); Mean Platelet Volume 10.5 fL (9.4-12.4); Platelet Count 186 X10*3/uL (160-400); Red Blood Count 3.74 X10*6/uL (4.60-5.80); Red Cell Distribution Width 12.9 % (11.0-16.0); White Blood Count 12.4 X10*3/uL (4.8-10.8)
[2023-06-15 07:08] VITALS: BP 131/65; PULSE 61; RESP 16; TEMP 36.6; O2SAT 97
[2023-06-15 07:10] LABS: Anion Gap 14 (12-20); Blood Urea Nitrogen 22 mg/dL (9-16); Carbon Dioxide 24 mmol/L (22-29); Chloride 109 mmol/L (96-108); Creatinine Clr Calc Pharmacy 41.5; Estimated Glomerular Filt Rate > 60; Glucose Fasting 87 mg/dL (60-99); Potassium 3.5 mmol/L (3.3-5.1); Sodium 143 mmol/L (135-145)
[2023-06-15] MEDS: cefTRIAXone sodium 1 GM in 0.9 % Sodium Chloride 50 ML IV (08:34)
[2023-06-15] MEDS: Sennosides/Docusate Sodium TABLET 2 TAB PO ×2 (08:35→19:32)
[2023-06-15] MEDS: Cyanocobalamin (Vitamin B-12) 1,000 MCG TABLET 1000 MCG PO (08:35)
[2023-06-15] MEDS: Famotidine 20 MG TABLET PO ×2 (08:35→19:32)
[2023-06-15] MEDS: Apixaban 2.5 MG TABLET PO ×2 (08:35→19:32)
--- NOTE | 2023-06-15 09:06 | P.CDIM_ITS ---
PROVIDER RESPONSE TEXT: To clarify, the appropriate diagnosis supported by the clinical indicators: Underweight QUERY TEXT: PHYSICIAN'S DOCUMENTATION REQUEST Date of Query: 06/15/2023 08:50 AM EST Patient Name: Joel Acevedo Admit Date: 06/13/2023 Dear Jacob Rodas, A review of the medical record indicates additional documentation may be needed. Please review below and update the documentation accordingly. Clinical Indicators: BMI: 18.3 5ft 5in 49.8kg If possible, please provide an associated diagnosis related to the abnormal BMI, such as: Underweight Weight loss Anorexia Underweight BMI is not significant Other (explain) Clinically unable to determine (explain) Thank you, Margo Wilder, CCS, CDIS Use of terms such as suspected, likely, concern for, or probable (associated with a specific diagnosi s that is being evaluated, monitored, or treated as if it exists) are acceptable and can be coded in the inpatient se tting, when documented at the time of discharge. Please use your independent medical judgment in providing your response. THIS QUERY IS PART OF THE PERMANENT MEDICAL RECORD
--- NOTE | 2023-06-15 09:20 | P.PNIM_ITS ---
Subjective Subjective Date of Service: 06/15/23 Interval History: no complaints Physical Exam 2 Vital Signs: Vital Signs: Last Vital Signs Temp 97.8 F 06/15/23 07:08 Pulse 61 06/15/23 07:08 Resp 16 06/15/23 07:08 BP 131/65 06/15/23 07:08 Pulse Ox 97 06/15/23 07:08 O2 Del Method Room Air 06/15/23 07:08 BMI result Body Mass Index 18.3 much more alert, no acute disterss, fully verbal with poor insight Objective Data Active Medications Acetaminophen (Acetaminophen 325 Mg Tablet) 650 mg PO Q6H PRN PRN Reason: Fever Or Pain Apixaban (Apixaban 2.5 Mg Tablet) 2.5 mg PO BID [facility] Last Admin: 06/15/23 08:35 Dose: 2.5 mg Documented By: KOURTNEY Bisacodyl (Bisacodyl 10 Mg Supp.Rect) 10 mg [place] DAILY PRN PRN Reason: Constipation Cyanocobalamin (Cyanocobalamin (Vitamin B-12) 1,000 Mcg Tablet) 1,000 mcg PO DAILY [facility] Last Admin: 06/15/23 08:35 Dose: 1,000 mcg Documented By: KOURTNEY Diltiazem HCl (Diltiazem Hcl Sr 60 Mg Cap.Er.12h) 120 mg PO DAILY [facility]; Protocol Last Admin: 06/14/23 08:54 Dose: 120 mg Documented By: SAMM Famotidine (Famotidine 20 Mg Tablet) 20 mg PO BID [facility] Last Admin: 06/15/23 08:35 Dose: 20 mg Documented By: KOURTNEY Finasteride (Finasteride 5 Mg Tablet) 5 mg PO DAILY [facility] Last Admin: 06/14/23 09:00 Dose: 5 mg Documented By: SAMM Ceftriaxone Sodium 1 gm/ (Sodium Chloride) 50 mls @ 100 mls/hr IV Q24H [facility] Last Admin: 06/15/23 08:34 Dose: 100 mls/hr Documented By: KOURTNEY Magnesium Hydroxide (Milk Of Magnesia 30 Ml Oral.Susp) 30 ml PO DAILY PRN PRN Reason: Constipation Mirtazapine (Mirtazapine 15 Mg Tablet) 15 mg PO BEDTIME [facility] Last Admin: 06/14/23 20:46 Dose: 15 mg Documented By: GARFIELD Senna/Docusate Sodium (Sennosides/Docusate Sodium Tablet) 2 tab PO BID [facility] Last Admin: 06/15/23 08:35 Dose: 2 tab Documented By: KOURTNEY Sodium Biphosphate/Sodium Phosphate (Sodium Phosphate,[place]-Dibasic 133 Ml Enema) 118 ml [place] DAILY PRN PRN Reason: Constipation Sodium Chloride (0.9 % Sodium Chloride Flush 3 Ml Syringe) 3 ml IVFLUSH QSHIFT [facility] Last Admin: 06/15/23 08:42 Dose: Not Given Documented By: KOURTNEY Non-Admin Reason: IV Running Labs 06/15/23 06:23 06/15/23 06:23 Labs: Laboratory Results - last 24 hr 06/15/23 06:23 MCV 89.8 MCH 29.9 MCHC 33.3 RDW 12.9 Plt Count 186 MPV 10.5 Absolute Nucleated RBC 0.000 Nucleated RBC % (auto) 0.0 Anion Gap 14 Estim Creat Clear Calc 41.5 Estimated GFR > 60 Fasting Glucose 87 Calcium 9.0 Microbiology Microbiology Results: Microbiology 06/13/23 Unknown Urine Culture - Final Urine Catheterized - Ornelas Catheter Providencia rettgeri 06/13/23 07:21 Blood Culture - Preliminary Blood - Venous Gram negative alejandra 06/13/23 06:47 Blood Culture - Preliminary Blood - Venous Gram negative alejandra Assessment and Plan (1) Sepsis: Status: Acute Plan 77M PMH dementia from LTC, bph, paroxysmal afib, chronic urinary retention with ornelas, htn, presented with ams and fever Sepsis and acute metabolic encephalopathy secondary to urinary tract infection due to chronic Ornelas with GNR bacteremia Ornelas replaced, continue ceftriaxone, follow up cultures mental status back to baseline BPH with chronic urinary retention Ornelas replaced Proscar Paroxysmal atrial fibrillation Diltiazem and Eliquis Hypertension Continue diltiazem Dementia unspecified DVT prophylaxis-on Eliquis Full code reason for continued hospitalization:awaiting cultures Quality Stroke Does the patient have a stroke diagnosis?: No VTE Prior VTE?: No VTE Risk Level:: Medical - moderate - high VTE Device Contraindication: Treatment Not Indicated VTE Drug Contraindication: Treatment Not Indicated
[2023-06-15] MEDS: dilTIAZem HCL SR 60 MG CAP.ER.12H 120 MG PO (10:17)
[2023-06-15] MEDS: Finasteride 5 MG TABLET PO (10:17)
[2023-06-15 15:54] VITALS: BP 133/66; PULSE 55; RESP 18; TEMP 36.8; O2SAT 96
[2023-06-15] MEDS: 0.9 % Sodium Chloride Flush 3 ML SYRINGE IVFLUSH ×2 (16:44→19:33)
[2023-06-15 19:10] VITALS: BP 118/78; RESP 18; O2SAT 96
[2023-06-15] MEDS: Mirtazapine 15 MG TABLET PO (19:32)
[2023-06-16 02:54] VITALS: BP 116/78; PULSE 55; RESP 14; TEMP 36.4; O2SAT 95
[2023-06-16 06:47] LABS: Hematocrit 35.9 % (42.0-52.0); Hemoglobin 11.8 g/dl (14.0-18.0); Mean Corpuscular HGB Conc 32.9 g/dl (31.0-36.0); Mean Corpuscular Hemoglobin 29.3 pg (27.0-33.0); Mean Corpuscular Volume 89.1 fL (80.0-98.0); Mean Platelet Volume 10.4 fL (9.4-12.4); Platelet Count 216 X10*3/uL (160-400); Red Blood Count 4.03 X10*6/uL (4.60-5.80); Red Cell Distribution Width 12.7 % (11.0-16.0); White Blood Count 10.1 X10*3/uL (4.8-10.8)
[2023-06-16 06:53] LABS: Anion Gap 12 (12-20); Blood Urea Nitrogen 17 mg/dL (9-16); Carbon Dioxide 27 mmol/L (22-29); Chloride 108 mmol/L (96-108); Creatinine Clr Calc Pharmacy 43.1; Estimated Glomerular Filt Rate > 60; Glucose Fasting 123 mg/dL (60-99); Potassium 3.2 mmol/L (3.3-5.1); Sodium 144 mmol/L (135-145)
[2023-06-16 07:49] VITALS: BP 148/83; PULSE 69; RESP 18; TEMP 37; O2SAT 95
[2023-06-16] MEDS: dilTIAZem HCL SR 60 MG CAP.ER.12H 120 MG PO (08:29)
[2023-06-16] MEDS: Cyanocobalamin (Vitamin B-12) 1,000 MCG TABLET 1000 MCG PO (08:29)
[2023-06-16] MEDS: Famotidine 20 MG TABLET PO (08:29)
[2023-06-16] MEDS: Sennosides/Docusate Sodium TABLET 2 TAB PO (08:29)
[2023-06-16] MEDS: levoFLOXacin 750 MG TABLET PO (08:30)
[2023-06-16] MEDS: Apixaban 2.5 MG TABLET PO (08:30)
[2023-06-16] MEDS: Potassium Chloride Packet 20 MEQ PACKET 40 MEQ PO (08:30)
[2023-06-16] MEDS: Finasteride 5 MG TABLET PO (08:30)
[2023-06-16] MEDS: 0.9 % Sodium Chloride Flush 3 ML SYRINGE IVFLUSH (08:36)
[2023-06-16 10:39] VITALS: BMI 18.3
--- NOTE | 2023-06-16 10:47 | MHC.CLN ---
NUTRITION DIET=REGUALR. ADDING ENSURE BID TO INCREASE NUTRITIONAL INTAKE. PROVIDES 700 KCALS, 40 G PROTEIN. NON SEVERE MALNUTRITION IN THE CONTEXT OF CHRONIC ILLNESS (DEMENTIA). BMI=18.3 AND IS 81% IBW. MILD DEPLETION OF BODY FAT AND MUSCLE MASS NOTED. MONITOR FOR INTAKE OF MEALS AND SUPPLEMENT. SEE CLINICAL NUTRITION ASSESSMENT .
--- NOTE | 2023-06-16 10:48 | MHC.CM.PN ---
EMR reviewed. Per MD rounds patient is medically clear for dc, resume LTC at [facility]. BLS transportation booked for 1pm. LM for guardian Alecia to notify of dc and deliver IMM. Copy of IMM left with patient belongings. RN, and facility aware.
--- NOTE | 2023-06-16 11:16 | PM.DS ---
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 patient had 1 day history of increased agitation, pulled out his chronic ornelas, found to have fever, in ED, found to be septic, positive ua. patient unable to provide history himself. Hospital course Admitted for treatment of Sepsis and acute metabolic encephalopathy secondary to urinary tract infection due to chronic Ornelas with Morganella Morganii bacteremia as been proven by blood cultures. Urine also grew Providencia bacteria. both are likely from chronic indwelling catheter that was changed in ED upon presentation. Treted with Ceftriaxone that was later changed to Levofloxacin to finish total of 2 weeks of antibiotics as the patient clinically improved mentally and physically back to his baseline. rest of his home medication resumed. To finish total of 2 weeks of Levofloxacin Time Attestation Discharge coordination time: Greater than 30 minutes Quality: Safe Use of Opioids Does Pt have an Active Cancer Diagnosis on the Problem List?: No Quality: Stroke Does the patient have a stroke diagnosis?: No Physical Exam Vital Signs: Vital Signs: Last Vital Signs Temp 98.6 F 06/16/23 07:49 Pulse 69 06/16/23 07:49 Resp 18 06/16/23 07:49 BP 148/83 H 06/16/23 07:49 Pulse Ox 95 06/16/23 07:49 O2 Del Method Room Air 06/16/23 07:49 BMI result Body Mass Index 18.3 Const: Other: Constitutional : Awake, interactive, not in distress Neck : Normal inspection, Supple Cardiovascular : RRR, no JVP, no lower extremity edema Respiratory : good bilateral air entry, no crackles, wheezes or rhonchi Gastrointestinal: soft, lax, Normal bowel sounds, Non tender Skin : Warm, Dry Neurological : Alert & oriented to self, No focal deficit DS: Data Data Completed and Pending Completed studies during hospitalization [Text1]: Procedures Insertion of Infusion Device into Superior Vena Cava, Percutaneous Approach (08/03/22) Ultrasonography of Superior Vena Cava, Guidance (08/03/22) Labs on day of discharge: Laboratory Results - last 24 hr 06/16/23 05:53 WBC 10.1 RBC 4.03 L Hgb 11.8 L Hct 35.9 L MCV 89.1 MCH 29.3 MCHC 32.9 RDW 12.7 Plt Count 216 MPV 10.4 Absolute Nucleated RBC 0.000 Nucleated RBC % (auto) 0.0 Sodium 144 Potassium 3.2 L Chloride 108 Carbon Dioxide 27 Anion Gap 12 BUN 17 H Creatinine 1.01 Estim Creat Clear Calc 43.1 Estimated GFR > 60 Fasting Glucose 123 H Calcium 9.0 Preliminary micro results at discharge 06/13/23 06:47 Blood Culture - Preliminary Blood - Venous Morganella morganii [facility] Chest x-ray: Radiologist's impression: ITS Impressions Chest X-Ray 06/13/23 08:50 IMPRESSION: No evidence for acute disease in the chest. 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) Rajesh Son MD [Primary Care Provider] - 1 Week Discharge Medications: New levofloxacin 750 mg Tablet 750 mg PO Q48H Qty: 6 0RF Continued cyanocobalamin (vitamin B-12) 1,000 mcg Tablet 1,000 mcg PO DAILY famotidine 20 mg Tablet 20 mg PO BID tamsulosin [Flomax] 0.4 mg Capsule 0.4 mg PO DAILY mirtazapine 15 mg Tablet 15 mg PO BEDTIME finasteride 5 mg Tablet 5 mg PO DAILY Eliquis 2.5 mg Tablet 2.5 mg PO BID acetaminophen [Tylenol] 325 mg Tablet 650 mg PO Q6H PRN (Reason: Fever Or Pain) Rx Instructions: DO NOT EXCEED 3 G IN 24 HRS sennosides-docusate sodium [Senna with Docusate Sodium] 8.6-50 mg Tablet 2 tab-cap PO BID magnesium hydroxide [Milk of Magnesia] 400 mg/5 mL Suspension 30 ml PO DAILY PRN (Reason: Constipation) bisacodyl 10 mg Suppository 10 mg OR DAILY PRN (Reason: Constipation) Fleet Enema 19-7 gram/118 mL Enema 118 ml OR DAILY PRN (Reason: Constipation) d-mannose 500 mg Capsule 1,000 mg PO BID diltiazem HCl 120 mg capsule,extended release 12 hr 120 mg PO DAILY Discharge Orders: Discharge Order (Routine); Ordered 06/16/23 Ordered By: Naveed Sanchez Diet: Advance to usual diet Activity on Discharge: As tolerated Stand Alone Forms: Patient Portal Discharge page Care Plan Goals: Read below Health Concerns: Read below Plan of Treatment: Read below Assessment: Continue antibiotics as prescribed.
== END 2023-06-16 14:48 | DRG 698 ==
LOC: HO.ED 07:56 → HO.EDOVER 10:48 → HO.S3 06-14 10:11
PROVIDERS: Student in an Organized Health Care Education/Training Program; Admitting Provider Internal Medicine; Emergency Provider Emergency Medicine Emergency Medical Services; PCP Family Medicine; Visit Provider Student in an Organized Health Care Education/Training Program
DX: T83.511A Infection and inflammatory reaction due to indwelling urethral catheter, initial encounter (principal); A41.9 Sepsis, unspecified organism; G93.41 Metabolic encephalopathy; Z68.1 Body mass index [BMI] 19.9 or less, adult; N39.0 Urinary tract infection, site not specified; R63.6 Underweight; I10 Essential (primary) hypertension; N40.1 Benign prostatic hyperplasia with lower urinary tract symptoms; R33.8 Other retention of urine; B96.89 Other specified bacterial agents as the cause of diseases classified elsewhere; I48.0 Paroxysmal atrial fibrillation; F03.90 Unspecified dementia, unspecified severity, without behavioral disturbance, psychotic disturbance, mood disturbance, and anxiety; Z20.822 Contact with and (suspected) exposure to COVID-19; Z79.01 Long term (current) use of anticoagulants; Z79.899 Other long term (current) drug therapy
CPT/HCPCS: 36415; 71045; 80048; 80053; 81001; 81003; 83605; 85007; 85025; 85027; 85610; 87040; 87077; 87086; 87088; 87186; 87205; 87502; 87635; 93005; 99285; C1758; J0696; J2060

== ENCOUNTER → 2023-06-13 06:16 | Outpatient (BNV) | payer MEDICARE, MEDICAID, SELFPAY | PROVIDERS: Admitting Provider Internal Medicine; Emergency Provider Emergency Medicine Emergency Medical Services; PCP Family Medicine; Visit Provider Internal Medicine | DX: I49.1 Atrial premature depolarization (principal); R94.31 Abnormal electrocardiogram [ECG] [EKG] | CPT/HCPCS: 93010 ==

== ENCOUNTER → 2023-06-13 10:42 | Outpatient (BNV) | payer MEDICARE, MEDICAID, SELFPAY | PROVIDERS: Admitting Provider Internal Medicine; Emergency Provider Emergency Medicine Emergency Medical Services; PCP Family Medicine; Visit Provider Internal Medicine | DX: A41.9 Sepsis, unspecified organism (principal); N39.0 Urinary tract infection, site not specified; A49.8 Other bacterial infections of unspecified site | CPT/HCPCS: 99223; 99232; 99233; 99239 ==

== ENCOUNTER 2023-06-21 02:23 | Emergency (ER) | payer MEDICARE, MEDICAID, SELFPAY ==
--- NOTE | ~2023-06-21 | CT_ITS ---
CT HEAD WITHOUT IV CONTRAST CT CERVICAL SPINE WITHOUT IV CONTRAST INDICATION: Fall. COMPARISON: Head CT August 03, 2022. Head and cervical spine CT August 02, 2022. TECHNIQUE: Multidetector CT acquisitions of the head and cervical spine were obtained without IV contrast. Multiplanar reformats were acquired and utilized for image interpretation. This CT examination was performed using dose optimization techniques as appropriate, variously including the following: *Automated exposure control *Adjustment of mA and/or kV according to patient size (this includes techniques or standardized protocols for targeted exams where dose is matched to indication/reason for exam; i.e. extremities or head) *Use of iterative reconstruction technique FINDINGS: HEAD: There is global cerebral volume loss and there is mild chronic microangiopathy. There is no intracranial hemorrhage, hydrocephalus, extra-axial surface collection, midline shift, or other herniation pattern. Murguia to white matter differentiation is diffusely maintained without evidence of an evolved acute territorial infarct. The basilar cisterns are preserved. Right lateral scalp laceration. Anterior right frontal scalp swelling. No acute osseous abnormality. The paranasal sinuses and the mastoid air cells are well aerated. CERVICAL SPINE: Cervical alignment is maintained. Stable moderate to severe disc volume loss and endplate osteophytes at C4-C5 and C5-C6. There are no acute fractures and there are no acute subluxations within the cervical spine. Stable chronic compression deformity at T3. Craniocervical junction is unremarkable. No significant soft tissue abnormality within the neck. The visualized lung apices are clear. There is atherosclerotic calcification involving the carotid bifurcations bilaterally. CT/CT cervical spine wo IV con IMPRESSION: - No acute intracranial abnormality. Right lateral scalp laceration. Anterior right frontal scalp swelling. There is global cerebral volume loss and there is mild chronic microangiopathy. - No acute osseous abnormality within the cervical spine. Cervical spondylosis. Chronic compression deformity at T3 is stable.
[2023-06-21 03:10] VITALS: BP 98/72; PULSE 87; O2SAT 100
[2023-06-21 03:21] VITALS: BP 121/77; PULSE 67; RESP 16; TEMP 36.8; O2SAT 98; BMI 14.9
--- NOTE | 2023-06-21 03:24 | ECG_ITS ---
Test Reason : FALL Blood Pressure : / mmHG Vent. Rate : 066 BPM Atrial Rate : 066 BPM P-R Int : 164 ms QRS Dur : 092 ms QT Int : 438 ms P-R-T Axes : -02 -50 028 degrees QTc Int : 459 ms Sinus rhythm with Premature atrial complexes with Aberrant conduction Left anterior fascicular block Abnormal ECG When compared with ECG of 13-JUN-2023 06:44, Vent. rate has decreased BY 44 BPM T wave inversion no longer evident in Lateral leads Referred By: Generic ED Physician Electronically Signed By:PEYTON VARGAS MD
[2023-06-21 03:32] LABS: MANUAL DIFF FLAG NO
[2023-06-21 03:33] LABS: Basophils Absolute Auto 0.1 X10*3/uL (0.0-0.2); Basophils Percent Auto 0.5 % (0-2); Eosinophils Absolute Auto 0.1 X10*3/uL (0.0-0.4); Eosinophils Percent Auto 1.1 % (0-4); Hematocrit 37.2 % (42.0-52.0); Hemoglobin 11.9 g/dl (14.0-18.0); Imm Gran Abs Auto 0.15 X10*3/uL (0.00-0.03); Imm Gran Pct Auto 1.3 % (0.0-0.4); Lymphocytes Percent Auto 17.2 % (20-40); Mean Corpuscular Hemoglobin 28.9 pg (27.0-33.0); Mean Corpuscular Volume 90.3 fL (80.0-98.0); Mean Platelet Volume 9.1 fL (9.4-12.4); Monocytes Absolute Auto 0.9 X10*3/uL (0.1-1.2); Monocytes Percent Auto 7.5 % (2-11); Neutrophils Absolute Auto 8.2 x10*3/uL (2.0-8.3); Neutrophils Percent Auto 72.4 % (45-73); Platelet Count 301 X10*3/uL (160-400); Red Blood Count 4.12 X10*6/uL (4.60-5.80); Red Cell Distribution Width 13.1 % (11.0-16.0); White Blood Count 11.3 X10*3/uL (4.8-10.8)
[2023-06-21 03:50] LABS: Anion Gap 14 (12-20); Blood Urea Nitrogen 19 mg/dL (9-16); Calcium 9.5 mg/dL (8.4-10.2); Carbon Dioxide 26 mmol/L (22-29); Chloride 107 mmol/L (96-108); Creatinine Clr Calc Pharmacy 24.5; Estimated Glomerular Filt Rate 45; Glucose Random 91 mg/dL (60-115); Potassium 4.1 mmol/L (3.3-5.1); Sodium 143 mmol/L (135-145)
[2023-06-21 04:00] VITALS: BP 121/80; PULSE 66; RESP 15; O2SAT 99
[2023-06-21 04:04] LABS: INTERNATIONAL NORM RATIO 1.2 (0.9-1.1); Prothrombin Time 14.5 SEC (11.1-13.3)
[2023-06-21 04:14] LABS: Troponin-I High Sensitivity 3.6 ng/L (<3.5-35.0)
--- NOTE | 2023-06-21 04:49 | PC.NURSE ---
pt aneesh from [facility]. this rn contacted staff at [facility]. staff reports pt had unwitnessed fall. staff reports they noticed pt laying next to bedside table, staff reports they think he had been using the bedside table to ambulate. staff reports after fall pt reported feeling funny . pt on blood thinners. staff reports pt being on antibiotics for current uti. pt is confused at baseline. pt reporting neck pain. pt noted to have skin tear to the left hand covered in bandage. pt normals sinus on tele 60-62.
[2023-06-21 04:59] VITALS: BP 129/78; PULSE 60; RESP 16; TEMP 36.9; O2SAT 99
[2023-06-21 06:00] VITALS: BP 130/76; PULSE 53; RESP 18; TEMP 37.2; O2SAT 97
--- NOTE | 2023-06-21 06:37 | PC.NURSE ---
pt resting in stretcher comfortably at this time.
--- NOTE | 2023-06-21 06:46 | PC.NURSE ---
iv access wrapped for pt safety. pt noted to have 30ml of yellow urine in chronic ornelas.
--- NOTE | 2023-06-21 07:40 | ED_ITS ---
HPI - General Adult General Chief complaint: Fall Stated complaint: fall Time Seen by Provider: 06/21/23 07:32 History of Present Illness HPI narrative: Patient is a 77-year-old male with significant dementia who lives at the [facility]. Apparently he had a fall today. He was found down in the hallway. The fall was unwitnessed. He had a bruise on his right forehead. He is apparently on anticoagulation with apixaban. Patient has no recollection of the incident. Apparently the patient was initially complaining of some pain in his right leg. He is not currently complaining of any pain when he moves his legs and he denies any other pains. According to the prison he was recently diagnosed with UTI. He has an indwelling urinary catheter. He is apparently on antibiotics. Related Data Home Medications Medication Instructions Recorded Confirmed apixaban 2.5 mg tablet (Eliquis) 2.5 mg PO BID 08/03/22 06/13/23 cyanocobalamin (vitamin B-12) 1,000 mcg PO DAILY 08/03/22 06/13/23 1,000 mcg tablet famotidine 20 mg tablet 20 mg PO BID 08/03/22 06/13/23 finasteride 5 mg tablet 5 mg PO DAILY 08/03/22 06/13/23 mirtazapine 15 mg tablet 15 mg PO BEDTIME 08/03/22 06/13/23 tamsulosin 0.4 mg capsule (Flomax) 0.4 mg PO DAILY 08/03/22 02/18/23 acetaminophen 325 mg tablet 650 mg PO Q6H PRN Fever Or Pain 02/18/23 06/13/23 (Tylenol) bisacodyl 10 mg rectal suppository 10 mg SC DAILY PRN Constipation 02/18/23 06/13/23 d-mannose 500 mg capsule 1,000 mg PO BID 02/18/23 06/13/23 magnesium hydroxide 400 mg/5 mL 30 ml PO DAILY PRN Constipation 02/18/23 06/13/23 oral suspension (Milk of Magnesia) sennosides 8.6 mg-docusate sodium 2 tab-cap PO BID 02/18/23 06/13/23 50 mg tablet (Senna with Docusate Sodium) sodium phosphates 19 gram-7 118 ml SC DAILY PRN Constipation 02/18/23 06/13/23 gram/118 mL enema (Fleet Enema) diltiazem HCl 120 mg 120 mg PO DAILY 06/13/23 06/13/23 capsule,extended release 12 hr Previous Rx's Medication Instructions Recorded levofloxacin 750 mg tablet 750 mg PO Q48H #6 tabs 06/16/23 Allergies Allergy/AdvReac Type Severity Reaction Status Date / Time No Known Allergies Allergy Verified 06/13/23 06:34 Review of Systems 2 Review of Systems: Yes all other systems are reviewed and are negative [facility] Past Medical History Medical History BPH (benign prostatic hyperplasia) 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 Atrial fibrillation Dementia Social History Social History Household Members: Unknown / Unable to assess Housing: Unknown / Unable to assess Do you presently have visiting nurse or other home services: No Unable to assess alcohol history related to: Unable to respond Alcohol intake: never Comment: 1:2 sitter in room Patient Tobacco Use Status: Tobacco use Unknown Second Hand Smoke Exposure: No Use of substances other than those prescribed or required for medical reasons: Unable to respond Advance Directives: Yes Advance Directives on File: Yes Advance Directives Date on File: 06/14/23 service: No Current occupational status: disabled Physical Exam ED Vital Signs: Vital Signs - 24 hr 06/21/23 03:21 06/21/23 04:00 06/21/23 04:59 Temperature 98.3 F 98.4 F Pulse Rate 67 66 60 Respiratory Rate 16 15 16 Blood Pressure 121/77 121/80 129/78 Pulse Oximetry 98 99 99 Oxygen Delivery Method Room Air Room Air Room Air 06/21/23 06:00 06/21/23 08:32 Temperature 98.9 F Pulse Rate 53 59 Respiratory Rate 18 16 Blood Pressure 130/76 125/77 Pulse Oximetry 97 96 Oxygen Delivery Method Room Air Room Air BMI result Body Mass Index 14.9 Const Other: The patient is a somewhat cachectic older man who was asleep when I entered the room. He woke with easy stimulation. He seems pleasantly but quite severely demented. He is unable to tell me anything about his living situation not seem in obvious pain or respiratory distress or seem obviously otherwise. He has a bruise to the right forehead. HENMT Other: There is bruising to the right forehead. I do not find any evidence of an actual laceration on the scalp or the forehead. Face is symmetrical. Airway clear. Mucous membranes moist. Eyes Other: Pupils are round equal, conjunctivae are clear, extraocular movements intact Neck Other: No apparent cervical-spine tenderness. The patient's exam is quite unremarkable however because of his significant dementia. He is moving his neck without apparent discomfort. Chest Other: No chest wall tenderness. Resp Other: Breath sounds are clear bilaterally. Cardio Other: The patient is a regular rate and rhythm, no murmur heard. GI Other: The abdomen is soft and nontender Back/Spine/Pelvis Other: No midline vertebral tenderness in the back. Skin Other: There is a bruise to the right forehead. No laceration. Elsewhere the skin is pale and dry. Neuro Other: The patient was sleeping. He woke easily. He is very poorly oriented in a manner consistent with significant dementia. He is not able to tell me where he lives or where he is right now. However his face is symmetrical, eye movements intact, speech is clear, moves his extremities symmetrically. No obvious focal findings. Extrem Other: Patient moves all 4 extremities well without apparent discomfort. Medications Administered Discontinued Medications Generic Name Dose Route Start Last Admin Trade Name Freq PRN Reason Stop Dose Admin Sodium Chloride 1,000 mls @ 999 mls/hr 06/21/23 07:45 06/21/23 09:57 Ns IV 06/21/23 08:45 Infused .Q1H1M CHRISS Infusion Medical Decision Making Medical Decision Making [facility] Narrative: Action lives at a prison. He has significant dementia. He had a fall this morning. He has a right forehead contusion but a negative head CT and cervical spine CT. He does not seem to have signs of other significant injuries his labs suggest some mild dehydration. He was given 1 L of IV normal saline. Otherwise the patient seems to be at his baseline and I think he may return to his prison. Lab Data 06/21/23 03:29 06/21/23 03:29 Labs: Lab Results 06/21/23 Range/Units 03:29 WBC 11.3 H (4.8-10.8) X10*3/uL RBC 4.12 L (4.60-5.80) X10*6/uL Hgb 11.9 L (14.0-18.0) g/dl Hct 37.2 L (42.0-52.0) % MCV 90.3 (80.0-98.0) fL MCH 28.9 (27.0-33.0) pg MCHC 32.0 (31.0-36.0) g/dl RDW 13.1 (11.0-16.0) % Plt Count 301 D (160-400) X10*3/uL MPV 9.1 L (9.4-12.4) fL Immature Gran % (Auto) 1.3 H (0.0-0.4) % Neut % (Auto) 72.4 (45-73) % Lymph % (Auto) 17.2 L (20-40) % [place] % (Auto) 7.5 (2-11) % Eos % (Auto) 1.1 (0-4) % Baso % (Auto) 0.5 (0-2) % Lymph # (Auto) 2.0 (1.2-4.9) X10*3/uL [place] # (Auto) 0.9 (0.1-1.2) X10*3/uL Eos # (Auto) 0.1 (0.0-0.4) X10*3/uL Baso # (Auto) 0.1 (0.0-0.2) X10*3/uL Abs Immat Gran (auto) 0.15 H (0.00-0.03) X10*3/uL Absolute Neuts (auto) 8.2 (2.0-8.3) x10*3/uL Absolute Nucleated RBC 0.000 (0.0-0.012) X10*3/uL Nucleated RBC % (auto) 0.0 (0.0-0.2) /100WBC PT 14.5 H (11.1-13.3) SEC INR 1.2 H (0.9-1.1) Sodium 143 (135-145) mmol/L Potassium 4.1 (3.3-5.1) mmol/L Chloride 107 (96-108) mmol/L Carbon Dioxide 26 (22-29) mmol/L Anion Gap 14 (12-20) BUN 19 H (9-16) mg/dL Creatinine 1.50 H (0.5-1.4) mg/dL Estim Creat Clear Calc 24.5 Estimated GFR 45 Random Glucose 91 (60-115) mg/dL Calcium 9.5 D (8.4-10.2) mg/dL Troponin I High Sens 3.6 (<3.5-35.0) ng/L Independent Interpretation I performed an independent interpretation of an: EKG Interpretation: The unit 09/10/2002 shows sinus rhythm premature atrial complexes at 66 beats per minute. Discharge Plan Discharge Clinical Impression: Fall, Dementia, Head injury, Forehead contusion Patient Disposition: [facility] Transfer Details: BACK TO [facility] Additional Instructions: The patient had a head CT and a CT of the cervical spine. These showed no concerning findings. The patient's lab show some mild dehydration. He has been given a L of normal saline. Otherwise the patient seems stable. Please continue usual care. Use of anticoagulation in this patient should be reviewed if he is likely to have additional falls. Prescriptions: No Action cyanocobalamin (vitamin B-12) 1,000 mcg Tablet 1,000 mcg PO DAILY famotidine 20 mg Tablet 20 mg PO BID tamsulosin [Flomax] 0.4 mg Capsule 0.4 mg PO DAILY mirtazapine 15 mg Tablet 15 mg PO BEDTIME finasteride 5 mg Tablet 5 mg PO DAILY Eliquis 2.5 mg Tablet 2.5 mg PO BID acetaminophen [Tylenol] 325 mg Tablet 650 mg PO Q6H PRN (Reason: Fever Or Pain) Rx Instructions: DO NOT EXCEED 3 G IN 24 HRS sennosides-docusate sodium [Senna with Docusate Sodium] 8.6-50 mg Tablet 2 tab-cap PO BID magnesium hydroxide [Milk of Magnesia] 400 mg/5 mL Suspension 30 ml PO DAILY PRN (Reason: Constipation) bisacodyl 10 mg Suppository 10 mg SC DAILY PRN (Reason: Constipation) Fleet Enema 19-7 gram/118 mL Enema 118 ml SC DAILY PRN (Reason: Constipation) d-mannose 500 mg Capsule 1,000 mg PO BID diltiazem HCl 120 mg capsule,extended release 12 hr 120 mg PO DAILY levofloxacin 750 mg Tablet 750 mg PO Q48H Qty: 6 0RF Referrals: [facility] [Provider Group] (fall) Rajesh Son MD [Primary Care Provider] - Interventions: ED Discharge Assessment Last Done: 06/21/23 09:58 Discharge Date/Time: 06/21/23 10:53
[2023-06-21 08:32] VITALS: BP 125/77; PULSE 59; RESP 16; O2SAT 96
[2023-06-21] MEDS: 0.9 % Sodium Chloride 1,000 ML 999 ML IV (08:36)
--- NOTE | 2023-06-21 09:53 | PC.NURSE ---
PT IVF INFUSING, AWAITING TRANSPORT BACK TO [facility]
== END 2023-06-21 10:53 | disposition skilled nursing facility (03) ==
PROVIDERS: Emergency Provider Emergency Medicine; PCP Family Medicine
DX: S00.83XA Contusion of other part of head, initial encounter (principal); S09.90XA Unspecified injury of head, initial encounter; M54.2 Cervicalgia; R51.9 Headache, unspecified; F03.90 Unspecified dementia, unspecified severity, without behavioral disturbance, psychotic disturbance, mood disturbance, and anxiety; R94.31 Abnormal electrocardiogram [ECG] [EKG]; W01.10XA Fall on same level from slipping, tripping and stumbling with subsequent striking against unspecified object, initial encounter; Y93.9 Activity, unspecified; Y92.9 Unspecified place or not applicable; Y99.9 Unspecified external cause status; Z79.899 Other long term (current) drug therapy
CPT/HCPCS: 36415; 70450; 72125; 80048; 84484; 85025; 85610; 93005; 96360; 99284; 99285

== ENCOUNTER → 2023-06-21 03:24 | Outpatient (BNV) | payer MEDICARE, MEDICAID, SELFPAY | PROVIDERS: Emergency Provider Emergency Medicine; PCP Family Medicine; Visit Provider Internal Medicine Cardiovascular Disease | DX: I49.1 Atrial premature depolarization (principal); I44.4 Left anterior fascicular block | CPT/HCPCS: 93010 ==

== ENCOUNTER 2023-08-09 06:10 | Outpatient (REF) | payer MEDICARE, MEDICAID, SELFPAY ==
[2023-08-09 06:07] LABS: MANUAL DIFF FLAG NO
[2023-08-09 06:39] LABS: Anion Gap 14 (12-20); Blood Urea Nitrogen 24 mg/dL (9-16); Calcium 8.9 mg/dL (8.4-10.2); Carbon Dioxide 26 mmol/L (22-29); Chloride 107 mmol/L (96-108); Estimated Glomerular Filt Rate 60; Glucose Random 95 mg/dL (60-115); Potassium 4.1 mmol/L (3.3-5.1); Sodium 143 mmol/L (135-145)
[2023-08-09 06:40] LABS: Basophils Absolute Auto 0.1 X10*3/uL (0.0-0.2); Basophils Percent Auto 0.8 % (0-2); Eosinophils Absolute Auto 0.3 X10*3/uL (0.0-0.4); Eosinophils Percent Auto 4.9 % (0-4); Hematocrit 37.5 % (42.0-52.0); Imm Gran Abs Auto 0.02 X10*3/uL (0.00-0.03); Imm Gran Pct Auto 0.3 % (0.0-0.4); Lymphocytes Absolute Auto 1.6 X10*3/uL (1.2-4.9); Lymphocytes Percent Auto 24.7 % (20-40); Mean Corpuscular Hemoglobin 29.9 pg (27.0-33.0); Mean Corpuscular Volume 93.3 fL (80.0-98.0); Mean Platelet Volume 10.3 fL (9.4-12.4); Monocytes Absolute Auto 0.5 X10*3/uL (0.1-1.2); Monocytes Percent Auto 7.7 % (2-11); Neutrophils Percent Auto 61.6 % (45-73); Platelet Count 248 X10*3/uL (160-400); Red Blood Count 4.02 X10*6/uL (4.60-5.80); Red Cell Distribution Width 12.8 % (11.0-16.0); White Blood Count 6.5 X10*3/uL (4.8-10.8)
[2023-08-09 07:02] LABS: Thyroid Stimulating Hormone 1.34 uIU/mL (0.32-4.0)
== END 2023-08-09 06:11 | disposition home or self-care (01) ==
LOC: HO.MMNH3L 06:10
PROVIDERS: Visit Provider Family Medicine
DX: I10 Essential (primary) hypertension (principal); I48.91 Unspecified atrial fibrillation
CPT/HCPCS: 36415; 80048; 84443; 85025

== ENCOUNTER 2023-08-31 02:47 | Emergency (ER) | payer MEDICARE, MEDICAID, SELFPAY ==
[2023-08-31 02:59] VITALS: BP 150/100; PULSE 71; O2SAT 97
[2023-08-31 03:06] VITALS: BP 131/94; PULSE 70; RESP 16; TEMP 36.6; O2SAT 97; BMI 16.0
--- NOTE | 2023-08-31 03:14 | PC.NURSE ---
Addendum entered by Nicky Bradford 08/31/23 03:19: ornelas was found tucked up behind his body. the ornelas was uncapped, no fluid in the balloon. pt abd tender to touch and distended. Original Note: upon arrival there was no ornelas visable seen. pt poor historian unable to give us what events took place today.
--- NOTE | 2023-08-31 03:31 | PC.NURSE ---
pt arrived with a ornelas not clamped or attached to a ornelas bag. call made to [facility] per rn they removed the fluid in balloon but was unsuccessful in taking out ornelas. pt in great pain when attempt to remove catheter. not draining urine at this time. bladder scan shows >695 mL urine in bladder. awaiting ed provider eval. pt afebrile vss. hx dementia pt confused at baseline. pt aware of situation able to state has pain in bladder region unable to state pain lavel on a 0-10 scale. pt sitting up speaking full clear sentences nad. call sood within reach.
--- NOTE | 2023-08-31 03:55 | PC.NURSE ---
small amount of fluid in balloon removed after multiple tries. ornelas removed with success no bleeding.
--- NOTE | 2023-08-31 04:20 | ED_ITS ---
HPI - Male Genitourinary General Chief complaint: Urogenital-Male Stated complaint: AMS, POSSIBLE UTI Time Seen by Provider: 08/31/23 04:04 Source: EMS and RN notes reviewed Mode of arrival: EMS Limitations: other (Dementia) History of Present Illness HPI Narrative: Patient from correction with history of dementia with indwelling Moreau catheter came as nurses noticed no urine output in the urine bag since 11:00 yesterday on arrival bladder scan showed patient has 750 cc urine no fever patient ambulatory restless as he wants to urinate Related Data Home Medications Medication Instructions Recorded Confirmed apixaban 2.5 mg tablet (Eliquis) 2.5 mg PO BID 08/03/22 06/13/23 cyanocobalamin (vitamin B-12) 1,000 mcg PO DAILY 08/03/22 06/13/23 1,000 mcg tablet famotidine 20 mg tablet 20 mg PO BID 08/03/22 06/13/23 finasteride 5 mg tablet 5 mg PO DAILY 08/03/22 06/13/23 mirtazapine 15 mg tablet 15 mg PO BEDTIME 08/03/22 06/13/23 tamsulosin 0.4 mg capsule (Flomax) 0.4 mg PO DAILY 08/03/22 02/18/23 acetaminophen 325 mg tablet 650 mg PO Q6H PRN Fever Or Pain 02/18/23 06/13/23 (Tylenol) bisacodyl 10 mg rectal suppository 10 mg [place] DAILY PRN Constipation 02/18/23 06/13/23 d-mannose 500 mg capsule 1,000 mg PO BID 02/18/23 06/13/23 magnesium hydroxide 400 mg/5 mL 30 ml PO DAILY PRN Constipation 02/18/23 06/13/23 oral suspension (Milk of Magnesia) sennosides 8.6 mg-docusate sodium 2 tab-cap PO BID 02/18/23 06/13/23 50 mg tablet (Senna with Docusate Sodium) sodium phosphates 19 gram-7 118 ml [place] DAILY PRN Constipation 02/18/23 06/13/23 gram/118 mL enema (Fleet Enema) diltiazem HCl 120 mg 120 mg PO DAILY 06/13/23 06/13/23 capsule,extended release 12 hr Previous Rx's Medication Instructions Recorded levofloxacin 750 mg tablet 750 mg PO Q48H #6 tabs 12/13/23 cefuroxime axetil 250 mg tablet 250 mg PO BID 7 days #14 tabs 08/31/23 Allergies Allergy/AdvReac Type Severity Reaction Status Date / Time No Known Allergies Allergy Verified 06/13/23 06:34 Review of Systems 2 Review of Systems: Yes Unobtainable due to mental status [facility] Past Medical History Medical History Dementia BPH (benign prostatic hyperplasia) 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 Atrial fibrillation Dementia Social History Social History Household Members: Unknown / Unable to assess Housing: Unknown / Unable to assess Do you presently have visiting nurse or other home services: No Unable to assess alcohol history related to: Unable to respond Alcohol intake: never Comment: 1:2 sitter in room Patient Tobacco Use Status: Tobacco use Unknown Second Hand Smoke Exposure: No Advance Directives: Yes Advance Directives on File: Yes Advance Directives Date on File: 06/14/23 service: No Current occupational status: disabled Physical Exam Vital Signs: Vital Signs: Last Vital Signs Temp 97.9 F 08/31/23 03:06 Pulse 70 08/31/23 03:06 Resp 16 08/31/23 03:06 BP 131/94 H 08/31/23 03:06 Pulse Ox 97 08/31/23 03:06 O2 Del Method Room Air 08/31/23 03:06 BMI result Body Mass Index 16.0 Appearance: Demented. No acute distress. Eyes: PERRLA, ENT: Pharynx normal. Oral Mucosa moist Neck: Normal inspection. Neck supple. CVS: Normal heart rate and rhythm. Pulses normal. Respiratory: No respiratory distress. Equal air entry bilateral, no wheezing/rales/rhonchi Abdomen: Soft suprapubic fullness Bowel sounds are present, no mass palpable, no CVA tenderness Skin: Skin warm and dry. Normal skin color. Normal skin turgor. Extremities: No lower extremity edema. No calf tenderness Neuro: Alert and awake at his baseline ambulatory the ED. Medical Decision Making Medical Decision Making MDM Narrative: Patient with chronic indwelling Moreau catheter came for obstruction new Moreau catheter was placed urine showed wbc's will give Ceftin which he is sensitive in the past Differential Diagnosis Differential Diagnoses: The differential diagnosis associated with the presentation includes UTI/Moreau catheter blockage Lab Data MDM Lab Attestation statement: I reviewed the patient's lab results. Labs: Lab Results 08/31/23 Range/Units 04:24 Urine Color DK YELLOW Urine Appearance Turbid Urine pH 8.5 (5.0-9.0) Ur Specific [place] 1.015 (1.005-1.025) Urine Protein 30 (1+) H (Neg-Trace) mg/dL Urine Glucose (UA) Negative (Negative) mg/dL Urine Ketones Negative (Negative) mg/dL Urine Blood Moderate (2+) H (Negative) Urine Nitrite Positive H (Negative) Ur Leukocyte Esterase Large (3+) H (Negative) Urine RBC >20 H (0-2) /HPF Urine WBC >50 H (0-5) /HPF Ur Squamous Epith Cells 0-2 (0-2) /HPF Calcium Oxalate Crystal None seen Other Crystals Present Urine Bacteria 4+ (None Seen) Hyaline Casts >20 (0-2) /LPF Procedures Catheter Insertion (Urinary) Date of insertion: 08/31/23 Reason for placing: Yes Reason for placing indwelling catheter: Acute urinary retention Bladder scan/ultrasound used before catheterization: Yes Estimated amount of urine (mLs): 750 Antiseptic solution prep: Povidone-Iodine Topical anesthesia used: Yes Catheter type/location: Urethral Size (Malay): 16 Catheter balloon size (mL): 10 Catheter balloon amount: 10 Results: successfully catheterized-immediate flow Procedure performed: without complications Discharge Plan Discharge Clinical Impression: Encounter for Moreau catheter replacement, UTI (urinary tract infection) due to urinary indwelling Moreau catheter Patient Disposition: er [facility] Instructions: Moreau Catheter Placement and Care (ED), Catheter-associated Urinary Tract Infection (ED) Additional Instructions: Care of Moreau catheter as advised Antibiotic as prescribed for UTI Follow-up with PCP if not better Prescriptions: New cefuroxime axetil 250 mg tablet 250 mg PO BID 7 Days Qty: 14 0RF No Action cyanocobalamin (vitamin B-12) 1,000 mcg Tablet 1,000 mcg PO DAILY famotidine 20 mg Tablet 20 mg PO BID tamsulosin [Flomax] 0.4 mg Capsule 0.4 mg PO DAILY mirtazapine 15 mg Tablet 15 mg PO BEDTIME finasteride 5 mg Tablet 5 mg PO DAILY Eliquis 2.5 mg Tablet 2.5 mg PO BID acetaminophen [Tylenol] 325 mg Tablet 650 mg PO Q6H PRN (Reason: Fever Or Pain) Rx Instructions: DO NOT EXCEED 3 G IN 24 HRS sennosides-docusate sodium [Senna with Docusate Sodium] 8.6-50 mg Tablet 2 tab-cap PO BID magnesium hydroxide [Milk of Magnesia] 400 mg/5 mL Suspension 30 ml PO DAILY PRN (Reason: Constipation) bisacodyl 10 mg Suppository 10 mg WV DAILY PRN (Reason: Constipation) Fleet Enema 19-7 gram/118 mL Enema 118 ml WV DAILY PRN (Reason: Constipation) d-mannose 500 mg Capsule 1,000 mg PO BID diltiazem HCl 120 mg capsule,extended release 12 hr 120 mg PO DAILY levofloxacin 750 mg Tablet 750 mg PO Q48H Qty: 6 0RF
[2023-08-31 04:29] LABS: Appearance Urine Turbid; Color Urine DK YELLOW; Glucose Urine UA Negative (Negative); Leukocyte Esterase Urine Large (3+) (Negative); Nitrite Urine Positive (Negative); PH 8.5 (5.0-9.0); Specific Gravity - Urine 1.015 (1.005-1.025); UMIC TRIGGER UACC YES; Urine Blood Moderate (2+) (Negative); Urine Ketones Negative (Negative); Urine Protein 30 (1+) mg/dL (Neg-Trace)
--- NOTE | 2023-08-31 04:31 | PC.NURSE ---
per Dr. Haddad verbal order ornelas inserted 16 fr 10 mL balloon pt tolerated well. approx 750 mL urine dark yellow with sediment. no blood noted. ua sent to lab. pt resting comfortably in stretcher.
[2023-08-31 04:41] LABS: Bacteria Urine 4+ (None Seen); Calcium Oxalate Crystals Urine None seen; Hyaline Casts Urine >20 /LPF (0-2); RBC Urine >20 /HPF (0-2); Squamous Epithelial Cell Urine 0-2 /HPF (0-2); UACC Culture Trigger YES; WBC Urine >50 /HPF (0-5)
[2023-08-31 04:42] LABS: Other Crystals Urine Present
[2023-08-31] MEDS: cefuroxime axetiL 250 MG TABLET PO (04:46)
--- NOTE | 2023-08-31 04:48 | PC.NURSE ---
report given to rn at [facility].
--- NOTE | 2023-08-31 04:51 | MHC.EDTECH ---
CALL OUT TO [facility] AT 0445 TO BOOK TRANSPORT FOR PT, ESTIMATED ETA GIVEN WAS 0700
[2023-08-31 05:00] VITALS: BP 112/78; PULSE 66; RESP 16; TEMP 36.7; O2SAT 97
[2023-08-31 06:11] VITALS: BP 96/69; PULSE 66; RESP 16; TEMP 36.2; O2SAT 97
== END 2023-08-31 07:30 | disposition skilled nursing facility (03) ==
PROVIDERS: Emergency Provider Internal Medicine
DX: N39.0 Urinary tract infection, site not specified (principal); R33.9 Retention of urine, unspecified; R41.82 Altered mental status, unspecified; Z79.899 Other long term (current) drug therapy
CPT/HCPCS: 51702; 81001; 87086; 87088; 87186; 99283; 99284

== ENCOUNTER 2023-09-06 06:20 | Outpatient (REF) | payer MEDICARE, MEDICAID, SELFPAY ==
[2023-09-06 05:54] LABS: MANUAL DIFF FLAG NO
[2023-09-06 06:11] LABS: Basophils Percent Auto 0.8 % (0-2); Eosinophils Absolute Auto 0.4 X10*3/uL (0.0-0.4); Eosinophils Percent Auto 6.8 % (0-4); Hematocrit 36.1 % (42.0-52.0); Hemoglobin 11.8 g/dl (14.0-18.0); Imm Gran Abs Auto 0.02 X10*3/uL (0.00-0.03); Imm Gran Pct Auto 0.4 % (0.0-0.4); Lymphocytes Absolute Auto 1.8 X10*3/uL (1.2-4.9); Lymphocytes Percent Auto 34.1 % (20-40); Mean Corpuscular HGB Conc 32.7 g/dl (31.0-36.0); Mean Corpuscular Hemoglobin 29.6 pg (27.0-33.0); Mean Corpuscular Volume 90.5 fL (80.0-98.0); Mean Platelet Volume 9.7 fL (9.4-12.4); Monocytes Absolute Auto 0.4 X10*3/uL (0.1-1.2); Monocytes Percent Auto 7.4 % (2-11); Neutrophils Absolute Auto 2.6 x10*3/uL (2.0-8.3); Neutrophils Percent Auto 50.5 % (45-73); Platelet Count 249 X10*3/uL (160-400); Red Blood Count 3.99 X10*6/uL (4.60-5.80); Red Cell Distribution Width 12.7 % (11.0-16.0); White Blood Count 5.1 X10*3/uL (4.8-10.8)
[2023-09-06 06:19] LABS: Anion Gap 12 (12-20); Blood Urea Nitrogen 19 mg/dL (9-16); Calcium 8.6 mg/dL (8.4-10.2); Carbon Dioxide 23 mmol/L (22-29); Chloride 111 mmol/L (96-108); Estimated Glomerular Filt Rate > 60; Glucose Random 83 mg/dL (60-115); Potassium 3.8 mmol/L (3.3-5.1); Sodium 142 mmol/L (135-145)
== END 2023-09-06 06:21 | disposition home or self-care (01) ==
LOC: HO.MMNH3L 06:20
PROVIDERS: Visit Provider Family Medicine
DX: I10 Essential (primary) hypertension (principal); I48.91 Unspecified atrial fibrillation; G93.41 Metabolic encephalopathy
CPT/HCPCS: 36415; 80048; 85025

== ENCOUNTER 2023-09-19 12:32 | Inpatient (IN) | payer MEDICARE, MEDICAID, SELFPAY ==
--- NOTE | ~2023-09-19 | CT_ITS ---
EXAMINATION: CT head/brain wo IV con CLINICAL INFORMATION: Reason for Exam mental status change COMPARISON: CT head 06/21/2023 TECHNIQUE: Contiguous axial imaging was performed from the skull base to vertex without intravenous contrast. Sagittal and coronal reformatted images were obtained. This CT examination was performed using dose optimization techniques as appropriate, variously including the following: * Automated exposure control * Adjustment of mA and/or kV according to patient size (this includes techniques or standardized protocols for targeted exams where dose is matched to indication/reason for exam; i.e. extremities or head) Use of iterative reconstruction technique DLP: 869 mGy-cm FINDINGS: Ashen artifact compromises diagnostic assessment. Stable moderate global cerebral volume loss and nonspecific white matter disease, presumably mild chronic microangiopathic changes. There is no abnormal attenuation within the brain parenchyma. No large territorial edematous infarction. No acute intracranial hemorrhage or extra-axial fluid collection. No mass lesion, significant mass effect, or herniation pattern. Increased AP dimension of the globes suggestive of axial myopia. Paranasal sinuses and mastoid air cells are well aerated. Osseous structures are intact. Resolved right frontal scalp hematoma and subcutaneous emphysema in the right lateral scalp from overlying laceration. CT/CT head/brain wo IV con IMPRESSION: No new acute intracranial abnormality. Stable chronic findings as above.
--- NOTE | ~2023-09-19 | CT_ITS ---
EXAMINATION: CT ABDOMEN AND PELVIS WITHOUT CONTRAST CLINICAL INFORMATION: Diffuse abdominal pain COMPARISON: None available. TECHNIQUE: Multidetector volumetric imaging was performed from the superior aspect of the liver through the pubic symphysis. Sagittal and coronal reformatted images were obtained on the technologist's workstation. This CT examination was performed using dose optimization techniques as appropriate, variously including the following: *Automated exposure control *Adjustment of mA and/or kV according to patient size (this includes techniques or standardized protocols for targeted exams where dose is matched to indication/reason for exam; i.e. extremities or head) *Use of iterative reconstruction technique DLP: 445 mGy-cm FINDINGS: LUNG BASES: Dependent bibasilar atelectasis. Patchy consolidation in the lingula may reflect atelectasis versus a focus of aspiration or infection. Heart is borderline enlarged, partially imaged. ABDOMINAL AND PELVIC WALL: A 2.1 cm peripherally calcified centrally low attenuation collection in the right gluteal soft tissues may reflect a chronically calcified collection such as an old hematoma or seroma. LIVER AND BILIARY TREE: Unremarkable. GALLBLADDER: Cholelithiasis without evidence of acute cholecystitis. PANCREAS: Unremarkable. SPLEEN: Unremarkable. ADRENAL GLANDS: Unremarkable. KIDNEYS AND URETERS: Bosniak 1 simple left renal cyst, no imaging follow-up recommended. Multiple nonobstructing left lower pole renal stones measuring up to 1.3 cm, 411 Hounsfield units. Mild bilateral hydronephrosis with the ureters dilated to the level of the bladder. GASTROINTESTINAL TRACT: Colonic diverticulosis without evidence of diverticulitis. VASCULAR: Moderate atherosclerosis of the abdominal aorta. LYMPH NODES/PERITONEUM: No lymphadenopathy. FREE FLUID: Small volume of simple free fluid in the pelvis. BLADDER: Urinary bladder is markedly distended to the level of the umbilicus. Foci of gas are noted within the bladder may be related to instrumentation. The Moreau catheter balloon is inflated within the prostatic urethra, recommend repositioning. Few punctate hyperdense foci along the dependent right aspect of the bladder may reflect tiny bladder stones versus bladder wall calcification. PELVIC VISCERA: Prostate is enlarged measuring 5.5 cm in transverse diameter. OSSEOUS STRUCTURES: Osteopenia. Bone island in level of L4. Multilevel degenerative disc disease. Faint sclerotic lesion in the T12 vertebral body which does not have the density of the bone island. CT/CT abdomen pelvis wo IV con IMPRESSION: * Urinary bladder is markedly distended to the level of the umbilicus with mild bilateral hydroureteronephrosis with the Moreau catheter balloon inflated within the prostatic urethra, recommend repositioning. Foci of gas are noted within the bladder may be related to instrumentation. * Indeterminate sclerotic lesion in the T12 vertebral body for which an osseous metastasis cannot be excluded. Recommend correlation with any history of malignancy and further evaluation with a nuclear medicine bone scan. * Multiple nonobstructing left lower pole renal stones measuring up to 1.3 cm. Few punctate hyperdense foci along the dependent right aspect of the bladder may reflect tiny bladder stones versus bladder wall calcification. * Patchy consolidation in the lingula may reflect atelectasis versus a focus of aspiration or infection. * Heart is borderline enlarged, partially imaged. * Cholelithiasis without evidence of acute cholecystitis.
--- NOTE | ~2023-09-19 | XR_ITS ---
EXAMINATION: XR CHEST CLINICAL INFORMATION: Reason for Exam mental status change COMPARISON: Chest radiograph 06/13/2023 TECHNIQUE: One view of the chest FINDINGS: Lines and tubes: EKG leads overlie the patient. Clear lungs. No pleural effusion. No pneumothorax. Unchanged cardiomediastinal silhouette. XR/XR chest 1V IMPRESSION: * Clear lungs.
[2023-09-19 12:52] VITALS: BP 104/63; BP 140/72; PULSE 81; PULSE 86; RESP 16; TEMP 38.2; O2SAT 98; BMI 15.7
--- NOTE | 2023-09-19 12:53 | ECG_ITS ---
Test Reason : AMS Blood Pressure : / mmHG Vent. Rate : 072 BPM Atrial Rate : 072 BPM P-R Int : 148 ms QRS Dur : 094 ms QT Int : 386 ms P-R-T Axes : 011 -49 063 degrees QTc Int : 422 ms Sinus rhythm with Premature atrial complexes Left axis deviation Nonspecific T wave abnormality Abnormal ECG When compared with ECG of 21-JUN-2023 03:39, No significant change was found Referred By: Felecia Interiano Electronically Signed By:BRUNA SINGH
--- NOTE | 2023-09-19 12:56 | ED.AMS ---
HPI - Altered Mental Status General Chief Complaint: Altered Mental Status Stated Complaint: AMS, BLOOD IN CATHETER, SEPSIS? PER EMS Time Seen by Provider: 09/19/23 12:48 Source: patient, EMS and old records reviewed Mode of arrival: EMS Limitations: altered mental status History of Present Illness HPI narrative: A 77-year-old male came in from shelter with history of dementia, BPH, paroxysmal AFib, chronic urinary retention with indwelling Moreau catheter, HTN, patient is a poor historian presented from the shelter by ambulance for evaluation of hematuria after pulling on his Moreau catheter and worsening of mental status change and his dementia. Patient had similar presentation in the past when he had a UTI. Related Data Home Medications Medication Instructions Recorded Confirmed apixaban 2.5 mg tablet (Eliquis) 2.5 mg PO BID 08/03/22 06/13/23 cyanocobalamin (vitamin B-12) 1,000 mcg PO DAILY 08/03/22 06/13/23 1,000 mcg tablet famotidine 20 mg tablet 20 mg PO BID 08/03/22 06/13/23 finasteride 5 mg tablet 5 mg PO DAILY 08/03/22 06/13/23 mirtazapine 15 mg tablet 15 mg PO BEDTIME 08/03/22 06/13/23 tamsulosin 0.4 mg capsule (Flomax) 0.4 mg PO DAILY 08/03/22 02/18/23 acetaminophen 325 mg tablet 650 mg PO Q6H PRN Fever Or Pain 02/18/23 06/13/23 (Tylenol) bisacodyl 10 mg rectal suppository 10 mg [place] DAILY PRN Constipation 02/18/23 06/13/23 d-mannose 500 mg capsule 1,000 mg PO BID 02/18/23 06/13/23 magnesium hydroxide 400 mg/5 mL 30 ml PO DAILY PRN Constipation 02/18/23 06/13/23 oral suspension (Milk of Magnesia) sennosides 8.6 mg-docusate sodium 2 tab-cap PO BID 02/18/23 06/13/23 50 mg tablet (Senna with Docusate Sodium) sodium phosphates 19 gram-7 118 ml [place] DAILY PRN Constipation 02/18/23 06/13/23 gram/118 mL enema (Fleet Enema) diltiazem HCl 120 mg 120 mg PO DAILY 06/13/23 06/13/23 capsule,extended release 12 hr Previous Rx's Medication Instructions Recorded levofloxacin 750 mg tablet 750 mg PO Q48H #6 tabs 06/16/23 cefuroxime axetil 250 mg tablet 250 mg PO BID 7 days #14 tabs 08/31/23 Allergies Allergy/AdvReac Type Severity Reaction Status Date / Time No Known Allergies Allergy Verified 09/19/23 12:52 Review of Systems Review of Systems: Yes Unobtainable due to mental status [facility] Past Medical History Medical History Dementia BPH (benign prostatic hyperplasia) 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 Atrial fibrillation Dementia Social History Social History Household Members: Unknown / Unable to assess Housing: Unknown / Unable to assess Do you presently have visiting nurse or other home services: No Unable to assess alcohol history related to: Unable to respond Alcohol intake: never Comment: 1:2 sitter in room Patient Tobacco Use Status: Tobacco use Unknown Second Hand Smoke Exposure: No Advance Directives: Yes Advance Directives on File: Yes Advance Directives Date on File: 06/14/23 service: No Current occupational status: disabled Physical Exam ED Vital Signs: Vital Signs - 24 hr 09/19/23 12:52 09/19/23 14:52 Temperature 100.7 F H 98.7 F Pulse Rate 86 62 Respiratory Rate 16 16 Blood Pressure 140/72 H 102/58 L Pulse Oximetry 98 Oxygen Delivery Method Room Air Room Air BMI result Body Mass Index 15.7 Vital signs have been reviewed and appear to be correct. Blood pressure elevated. Heart rate normal. Respiratory rate normal. Temperature elevated. Oxygen saturation normal. Appearance: Alert. Disoriented x4. No acute distress. Head: Normal external exam. Normocephalic. Atraumatic. No Parker signs noted. No raccoon eyes noted Eyes: PERRLA. EOMI. Conjunctiva and sclera normal. Eyelids normal. ENT: TM's Normal. Pharynx normal. Uvula midline. Moist mucous membranes. No trismus noted. No drooling noted. No muffled voice noted. Neck: Normal inspection. Neck supple. FROM. No adenopathy. Thyroid Normal. No meningeal signs. No neck mass noted. CVS: Normal heart rate and rhythm. Heart sound normal. No murmurs noted. Pulses normal throughout. Respiratory: No respiratory distress. Painless inspiration. Breath sounds normal. No wheezes/rales/rhonchi noted. Chest nontender. No accessory muscle usage noted or decreased air movement noted. Abdomen: Soft and nontender. Bowel sounds normal in all 4 quadrants. No distention noted. No organomegaly noted. No visible injury noted. : Chronic indwelling Moreau catheter with gross hematuria. Back: No CVA tenderness. Full range of motion noted. Skin: Skin warm and dry. Normal skin color. Normal skin turgor. No rashes/lesions/lacerations noted. Extremities: Dry shingles on the anterior aspect of left groin area no vesicular lesions. Neuro: Cranial nerve exam: II-XII are grossly intact No motor deficit. No sensory deficit. Reflexes normal. Course Reevaluation(s) Reevaluation #1: From shelter came in for acute mental status change. 1. UTI with sepsis patient received a 1 L of normal saline and ceftriaxone IV. 2. Traumatic hematuria clearing with TBI. 3. DOUGLAS appear to be postrenal obstruction when the patient pulled out his Moreau catheter the balloon stuck in the urethra causing obstruction, will continue with IV hydration, change Moreau catheter, continue Moreau catheter urine draining. 4. No lactic acidosis, no septic shock. Time: 16:34 Medications Administered Discontinued Medications Generic Name Dose Route Start Last Admin Trade Name Freq PRN Reason Stop Dose Admin Acetaminophen 975 mg 09/19/23 13:20 09/19/23 13:36 Acetaminophen 325 Mg Tablet PO 09/19/23 13:21 975 mg ONCE ONE Administration Sodium Chloride 1,000 mls @ 999 mls/hr 09/19/23 12:52 09/19/23 15:37 Ns IV 09/19/23 13:52 Infused .Q1H1M ONE Infusion Ceftriaxone Sodium 1 gm/ 50 mls @ 100 mls/hr 09/19/23 15:14 09/19/23 16:11 Sodium Chloride IV 09/19/23 15:43 Infused ONCE ONE Infusion Medical Decision Making Differential Diagnosis Differential Diagnoses: The differential diagnosis associated with the presentation includes (Electrolyte derangement, DOUGLAS, dehydration, UTI, sepsis, hematuria, obstructive uropathy, severe anemia.) Admission/Observation Consideration of admission/observation: Escalation of care including admission/observation considered Consult Healthcare Provider Management of the patient was discussed with: Hospitalist (Dr. Gonzalez) Lab Data MDM Lab Attestation statement: I reviewed the patient's lab results. 09/19/23 13:51 09/19/23 13:51 Labs: Lab Results 09/19/23 09/19/23 09/19/23 Range/Units 13:51 13:55 14:41 WBC 12.9 H (4.8-10.8) X10*3/uL RBC 3.79 L (4.60-5.80) X10*6/uL Hgb 11.2 L (14.0-18.0) g/dl Hct 34.1 L (42.0-52.0) % MCV 90.0 (80.0-98.0) fL MCH 29.6 (27.0-33.0) pg MCHC 32.8 (31.0-36.0) g/dl RDW 13.2 (11.0-16.0) % Plt Count 308 (160-400) X10*3/uL MPV 9.6 (9.4-12.4) fL Immature Gran % (Auto) 0.5 H (0.0-0.4) % Neut % (Auto) 80.0 H (45-73) % Lymph % (Auto) 9.4 L (20-40) % [place] % (Auto) 9.9 (2-11) % Eos % (Auto) 0.0 (0-4) % Baso % (Auto) 0.2 (0-2) % Lymph # (Auto) 1.2 (1.2-4.9) X10*3/uL [place] # (Auto) 1.3 H (0.1-1.2) X10*3/uL Eos # (Auto) 0.0 (0.0-0.4) X10*3/uL Baso # (Auto) 0.0 (0.0-0.2) X10*3/uL Abs Immat Gran (auto) 0.06 H (0.00-0.03) X10*3/uL Absolute Neuts (auto) 10.4 H (2.0-8.3) x10*3/uL Absolute Nucleated RBC 0.000 (0.0-0.012) X10*3/uL Nucleated RBC % (auto) 0.0 (0.0-0.2) /100WBC Sodium 139 (135-145) mmol/L Potassium 4.2 (3.3-5.1) mmol/L Chloride 108 (96-108) mmol/L Carbon Dioxide 18 L (22-29) mmol/L Anion Gap 17 (12-20) BUN 51 H (9-16) mg/dL Creatinine 4.49 H* (0.5-1.4) mg/dL Estim Creat Clear Calc 8.8 Estimated GFR 13 Random Glucose 109 (60-115) mg/dL Lactic Acid 1.0 (0.5-2.0) mmol/L Calcium 8.8 (8.4-10.2) mg/dL Total Bilirubin 1.1 H (0.0-1.0) mg/dL Direct Bilirubin 0.4 (0.0-0.5) mg/dL AST 31 (5-37) U/L ALT 31 (0-40) U/L Alkaline Phosphatase 72 (39-117) U/L Troponin I High Sens 11.1 D (<3.5-35.0) ng/L B-Natriuretic Peptide 42 (<100) pg/mL Total Protein 7.2 (6.5-8.0) g/dL Albumin 3.5 (3.5-5.0) g/dL Lipase 10 (8-78) U/L Urine Color Dark Yellow Urine Appearance Turbid Urine pH 8.0 (5.0-9.0) Ur Specific [place] 1.015 (1.005-1.025) Urine Protein 300 (3+) H (Neg-Trace) mg/dL Urine Glucose (UA) Negative (Negative) mg/dL Urine Ketones Negative (Negative) mg/dL Urine Blood Large (3+) H (Negative) Urine Nitrite Negative (Negative) Ur Leukocyte Esterase Large (3+) H (Negative) Urine RBC >20 H (0-2) /HPF Urine WBC >50 H (0-5) /HPF Ur Squamous Epith Cells 0-2 (0-2) /HPF Other Crystals Present Urine Bacteria 4+ (None Seen) Hyaline Casts 6-10 (0-2) /LPF Influenza Type A (PCR) NEGATIVE (Negative) Influenza Type B (PCR) NEGATIVE (Negative) RSV RNA Qual (PCR) NEGATIVE (Negative) SARS-CoV-2 RNA (RT-PCR) NEGATIVE (Negative) Independent Interpretation I performed an independent interpretation of an: CT Scan (Abdomen and pelvis:* Urinary bladder is markedly distended to the level of the umbilicus with mild bilateral hydroureteronephrosis with the Moreau catheter balloon inflated within the prostatic urethra, recommend repositioning. Foci of gas are noted within the bladder may be related to instrumentati) Radiology Impression Discussion of test interpretation with radiology: I have reviewed the radiologist's reading. Chronic Conditions Patient?s care impacted by: Other (Chronic indwelling Moreau catheter.) Critical Care Time Critical Care Time Critical Care Time: Yes Total Critical Care Time: 60 Attestation: I spent 60 minutes providing critical care service to the patient, this including time spent at the bedside to evaluate the patient, reassess the patient, monitoring vital signs, review labs, and radiographic studies, counseling the patient/family, discussing the case with consultants, disposition the patient. Discharge Plan Discharge Clinical Impression: DOUGLAS (acute kidney injury), Acute UTI, Hematuria Patient Disposition: Admitted As Inpatient
--- NOTE | 2023-09-19 13:05 | PC.NURSE ---
pt alert and oriented to name only. vss and up to date aside from rectal temp of 100.7. nsr on the cardiac rn. pt brought in from [facility] d/ increase in AMS. pt has a hx of dementia baseline but per EMS - pt has had an increase in AMS by trying to take out his chronic ornelas catheter. pt denies pain at the tip of the penis. dark red hematuria noted to be in ornelas bag. pt also refusing to take medication/consume PO intake at the facility. pt has an 18gIV placed in the left AC by EMS. wrapped w/ gauze for safety precautions. ED provider bedside assessing pt. plan of care ongoing at this time.
[2023-09-19] MEDS: 0.9 % Sodium Chloride 1,000 ML 999 ML IV (13:35)
[2023-09-19] MEDS: Acetaminophen 325 MG TABLET 975 MG PO (13:36)
[2023-09-19 14:01] LABS: MANUAL DIFF FLAG NO
[2023-09-19 14:03] LABS: Basophils Percent Auto 0.2 % (0-2); Hematocrit 34.1 % (42.0-52.0); Hemoglobin 11.2 g/dl (14.0-18.0); Imm Gran Abs Auto 0.06 X10*3/uL (0.00-0.03); Imm Gran Pct Auto 0.5 % (0.0-0.4); Lymphocytes Absolute Auto 1.2 X10*3/uL (1.2-4.9); Lymphocytes Percent Auto 9.4 % (20-40); Mean Corpuscular HGB Conc 32.8 g/dl (31.0-36.0); Mean Corpuscular Hemoglobin 29.6 pg (27.0-33.0); Mean Platelet Volume 9.6 fL (9.4-12.4); Monocytes Absolute Auto 1.3 X10*3/uL (0.1-1.2); Monocytes Percent Auto 9.9 % (2-11); Neutrophils Absolute Auto 10.4 x10*3/uL (2.0-8.3); Platelet Count 308 X10*3/uL (160-400); Red Blood Count 3.79 X10*6/uL (4.60-5.80); Red Cell Distribution Width 13.2 % (11.0-16.0); White Blood Count 12.9 X10*3/uL (4.8-10.8)
[2023-09-19 14:18] LABS: Alanine Aminotransferase 31 U/L (0-40); Albumin Level 3.5 g/dL (3.5-5.0); Alkaline Phosphatase 72 U/L (39-117); Anion Gap 17 (12-20); Aspartate Amino Transferase 31 U/L (5-37); Bilirubin Direct 0.4 mg/dL (0.0-0.5); Bilirubin Total 1.1 mg/dL (0.0-1.0); Blood Urea Nitrogen 51 mg/dL (9-16); Calcium 8.8 mg/dL (8.4-10.2); Carbon Dioxide 18 mmol/L (22-29); Chloride 108 mmol/L (96-108); Creatinine Clr Calc Pharmacy 8.8; Estimated Glomerular Filt Rate 13; Glucose Random 109 mg/dL (60-115); Lipase 10 U/L (8-78); Potassium 4.2 mmol/L (3.3-5.1); Sodium 139 mmol/L (135-145); Total Protein 7.2 g/dL (6.5-8.0)
[2023-09-19 14:19] LABS: B Type Natriuretic Peptide 42 pg/mL (<100)
[2023-09-19 14:21] LABS: Troponin-I High Sensitivity 11.1 ng/L (<3.5-35.0)
[2023-09-19 14:33] LABS: Influenza A PCR NEGATIVE (Negative); Influenza B PCR NEGATIVE (Negative); Resp Syncy Virus RNA Qual PCR NEGATIVE (Negative); SARS COV2 PCR INHOUSE NEGATIVE (Negative)
--- NOTE | 2023-09-19 14:41 | PC.NURSE ---
pt presented to ED w/ chronic ornelas. chronic ornelas removed successfully by dr. segundo as this RN as well as XIOMARA Mohan were unable to remove at first. dark red urine noted immediately post removal of catheter. new 16Fr indwelling catheter w/ 30ml balloon placed on first attempt. pt tolerated insertion well. 700ml of dark red urine w/ extreme cloudiness noted immediately post output. pt placed to CBI. 3L bag of fluid irrigation hung at this time. effectiveness pending.
[2023-09-19 14:52] VITALS: BP 102/58; PULSE 62; RESP 16; TEMP 37.1; O2SAT 98
[2023-09-19 14:52] LABS: Appearance Urine Turbid; Color Urine Dark Yellow; Glucose Urine UA Negative (Negative); Leukocyte Esterase Urine Large (3+) (Negative); Nitrite Urine Negative (Negative); Specific Gravity - Urine 1.015 (1.005-1.025); UMIC TRIGGER UACC YES; Urine Blood Large (3+) (Negative); Urine Ketones Negative (Negative); Urine Protein 300 (3+) mg/dL (Neg-Trace)
[2023-09-19] MEDS: cefTRIAXone sodium 1 GM in 0.9 % Sodium Chloride 50 ML IV (15:37)
--- NOTE | 2023-09-19 15:37 | PC.NURSE ---
nursing swallow performed prior to administering PO tylenol. no difficulties in swallowing noted. however, pt did pocket medication to his cheeks. pt easily redirectable - medication administered per provider order.
--- NOTE | 2023-09-19 15:40 | PC.NURSE ---
abx administered per provider order. 3L of pale cloudy yellow urine noted in ornelas catheter bag. documented in I&O section.
[2023-09-19 15:52] LABS: Bacteria Urine 4+ (None Seen); Other Crystals Urine Present; RBC Urine >20 /HPF (0-2); Squamous Epithelial Cell Urine 0-2 /HPF (0-2); UACC Culture Trigger YES; WBC Urine >50 /HPF (0-5)
--- NOTE | 2023-09-19 15:56 | PC.NURSE ---
2nd bag of 3L CBI fluids hung/administering continuously at this time.
--- NOTE | 2023-09-19 17:05 | PC.NURSE ---
pt speaking w/ hospitalist at this time.
--- NOTE | 2023-09-19 17:13 | P.HPHOSP_ITS ---
History of Present Illness Date of Service: 09/19/23 Attending physician on admission: Marti Gonzalez Chief Complaint: ams, pulled out ornelas, hematuria 77-year-old male with history of unspecified dementia with mood disorder, BPH with LUTS and chronic Ornelas, paroxysmal atrial fibrillation anticoagulated with Eliquis, hypertension, GERD, osteoarthritis, history MRSA UTI/bacteremia, and moderate protein calorie malnutrition herpes zoster on dose 04/17 valtrex presented to the ED earlier today from [facility] where he resides due to altered mental status and attempting to pull out his Ornelas catheter resulting in hematuria. The patient is altered and unable to provide history. Per nursing facility staff/ED report, changes in mental status were noted this morning. On arrival, patient febrile to 100.7, vitals otherwise stable. There is a leukocytosis of 12.9. He has a stable normocytic anemia with H/H 11.2/34.1%. Creatinine 4.49, baseline around 1. BUN 51. Electrolyte levels normal except for CO2 18. Hepatic function within normal limits. Troponin 11.1, BNP 42. Urinalysis significant for 3+ leukocytes, negative nitrites, 3+ blood, 3+ protein, positive urinary sediment, 4+ bacteria. Negative for COVID, influenza, RSV. Head CT negative for any acute intracranial abnormality. CT abdomen/pelvis shows markedly distended urinary bladder to the umbilicus with mild bilateral hydroureteronephrosis and Ornelas catheter balloon within the prostatic urethra. Incidentally seen is indeterminate sclerotic lesion of the T12 vertebral body possibly osseous metastasis not excluded. There also multiple nonobstructing left lower pole renal stones. Also shows possible patchy consolidation in the lingula possibly representing atelectasis versus focus of aspiration versus infection. CXR negative for any acute cardiopulmonary abnormality. In the ED has received Tylenol, 1 L IV NS, and Rocephin. 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 Atrial fibrillation Dementia Social History Household Members: Unknown / Unable to assess Housing: Unknown / Unable to assess Do you presently have visiting nurse or other home services: No Unable to assess alcohol history related to: Unable to respond Alcohol intake: never Comment: 1:2 sitter in room Patient Tobacco Use Status: Tobacco use Unknown Second Hand Smoke Exposure: No Advance Directives Date on File: 06/14/23 service: No Current occupational status: disabled Meds Allergies Allergy/AdvReac Type Severity Reaction Status Date / Time No Known Allergies Allergy Verified 09/19/23 12:52 Home Medications Medication Instructions Recorded Confirmed Last Taken Type apixaban 2.5 mg tablet (Eliquis) 2.5 mg PO BID 08/03/22 06/13/23 Unknown History cyanocobalamin (vitamin B-12) 1,000 mcg PO DAILY 08/03/22 06/13/23 Unknown History 1,000 mcg tablet famotidine 20 mg tablet 20 mg PO BID 08/03/22 06/13/23 Unknown History finasteride 5 mg tablet 5 mg PO DAILY 08/03/22 06/13/23 Unknown History mirtazapine 15 mg tablet 15 mg PO BEDTIME 08/03/22 06/13/23 Unknown History tamsulosin 0.4 mg capsule (Flomax) 0.4 mg PO DAILY 08/03/22 02/18/23 Unknown History acetaminophen 325 mg tablet 650 mg PO Q6H PRN Fever Or Pain 02/18/23 06/13/23 Unknown History (Tylenol) bisacodyl 10 mg rectal suppository 10 mg IL DAILY PRN Constipation 02/18/23 06/13/23 Unknown History d-mannose 500 mg capsule 1,000 mg PO BID 02/18/23 06/13/23 Unknown History magnesium hydroxide 400 mg/5 mL 30 ml PO DAILY PRN Constipation 02/18/23 06/13/23 Unknown History oral suspension (Milk of Magnesia) sennosides 8.6 mg-docusate sodium 2 tab-cap PO BID 02/18/23 06/13/23 Unknown History 50 mg tablet (Senna with Docusate Sodium) sodium phosphates 19 gram-7 118 ml IL DAILY PRN Constipation 02/18/23 06/13/23 Unknown History gram/118 mL enema (Fleet Enema) diltiazem HCl 120 mg 120 mg PO DAILY 06/13/23 06/13/23 Unknown History capsule,extended release 12 hr Physical Exam 2 Vital Signs and Narrative: Vital Signs: Last Vital Signs Temp 98.7 F 09/19/23 14:52 Pulse 62 09/19/23 14:52 Resp 16 09/19/23 14:52 BP 102/58 L 09/19/23 14:52 Pulse Ox 98 09/19/23 14:52 O2 Del Method Room Air 09/19/23 14:52 BMI result Body Mass Index 15.7 Constitutional - Awake and Alert, No apparent distress Eyes - PERRLA, EOMI Cardiovascular - S1S2, RRR, No edema Respiratory - Normal lung expansion, Normal respiratory effort, No respiratory distress, CTA bilaterally Gastrointestinal - NT / ND; +BS; No rebound or guarding - No CVA tenderness, ornelas catheter in place with bright red blood around the urethral meatus Extremities - no calf tenderness bilaterally, no swelling Skin - Warm/Dry. Dried, scabbed patches of what appear to be ruptured vesicles covering the L groin, L hip/buttock/proximal thigh Neurological - Alert & oriented to self only Results Labs 09/19/23 13:51 09/19/23 13:51 Labs: Laboratory Results - last 24 hr 09/19/23 09/19/23 09/19/23 13:51 13:55 14:41 MCV 90.0 MCH 29.6 MCHC 32.8 RDW 13.2 Plt Count 308 MPV 9.6 Immature Gran % (Auto) 0.5 H Neut % (Auto) 80.0 H Lymph % (Auto) 9.[address] [place] % (Auto) 9.9 Eos % (Auto) 0.0 Baso % (Auto) 0.2 Lymph # (Auto) 1.2 [place] # (Auto) 1.3 H Eos # (Auto) 0.0 Baso # (Auto) 0.0 Abs Immat Gran (auto) 0.06 H Absolute Neuts (auto) 10.4 H Absolute Nucleated RBC 0.000 Nucleated RBC % (auto) 0.0 Anion Gap 17 Estim Creat Clear Calc 8.8 Estimated GFR 13 Random Glucose 109 Lactic Acid 1.0 Calcium 8.8 Total Bilirubin 1.1 H Direct Bilirubin 0.4 AST 31 ALT 31 Alkaline Phosphatase 72 Troponin I High Sens 11.1 D B-Natriuretic Peptide 42 Total Protein 7.2 Albumin 3.5 Lipase 10 Urine Color Dark Yellow Urine Appearance Turbid Urine pH 8.0 Ur Specific Man 1.015 Urine Protein 300 (3+) H Urine Glucose (UA) Negative Urine Ketones Negative Urine Blood Large (3+) H Urine Nitrite Negative Ur Leukocyte Esterase Large (3+) H Urine RBC >20 H Urine WBC >50 H Ur Squamous Epith Cells 0-2 Other Crystals Present Urine Bacteria 4+ Hyaline Casts 6-10 Influenza Type A (PCR) NEGATIVE Influenza Type B (PCR) NEGATIVE RSV RNA Qual (PCR) NEGATIVE SARS-CoV-2 RNA (RT-PCR) NEGATIVE Imaging Radiologist's Impressions: Impressions Chest X-Ray 09/19/23 13:18 IMPRESSION: * Clear lungs. Abdomen/Pelvis CT 09/19/23 13:31 IMPRESSION: * Urinary bladder is markedly distended to the level of the umbilicus with mild bilateral hydroureteronephrosis with the Ornelas catheter balloon inflated within the prostatic urethra, recommend repositioning. Foci of gas are noted within the bladder may be related to instrumentation. * Indeterminate sclerotic lesion in the T12 vertebral body for which an osseous metastasis cannot be excluded. Recommend correlation with any history of malignancy and further evaluation with a nuclear medicine bone scan. * Multiple nonobstructing left lower pole renal stones measuring up to 1.3 cm. Few punctate hyperdense foci along the dependent right aspect of the bladder may reflect tiny bladder stones versus bladder wall calcification. * Patchy consolidation in the lingula may reflect atelectasis versus a focus of aspiration or infection. * Heart is borderline enlarged, partially imaged. * Cholelithiasis without evidence of acute cholecystitis. Head CT 09/19/23 13:31 IMPRESSION: No new acute intracranial abnormality. Stable chronic findings as above. Assessment and Plan (1) Hematuria: Status: Acute (2) DOUGLAS (acute kidney injury): Status: Acute (3) Acute UTI: Status: Acute Plan =77-year-old male with history of unspecified dementia with mood disorder, BPH with LUTS and chronic Ornelas, paroxysmal atrial fibrillation anticoagulated with Eliquis, hypertension, GERD, osteoarthritis, history MRSA UTI/bacteremia, and moderate protein calorie malnutrition recently diagnosed with herpes zoster on dose 04/17 valtrex admitted for Ornelas catheter associated UTI with obstructive uropathy and traumatic hematuria. # acute UTI -3+ leukocytes, negative nitrites, 3+ blood, positive urinary sediment, 4+ bacteria -history of Morganella, MRSA, Proteus, Providencia among others UTI -IV linezolid (due to renal function) and ceftriaxone (initiated 09/18) -leukocytosis 12.9, no other SIRS criteria -follow CBC, cultures # obstructive uropathy with acute kidney injury -CT abdomen/pelvis shows severely distended urinary bladder to the level of the umbilicus with bilateral hydroureteronephrosis -Likely post-renal DOUGLAS as patient attempted to pull out Ornelas catheter which was lodged in the prostatic urethra -Ornelas catheter replaced, draining 3 L urine -continue Ornelas catheter -avoid nephrotoxins -follow renal function, lytes # acute traumatic hematuria -weaned from CBI -hold Eliquis for now # acute metabolic encephalopathy -secondary to UTI -continue antibiotics above -monitor mentation # 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 -on Valtrex 1 g b.i.d., has received 10 of 14 doses (initiated 09/13) # hypertension -continue diltiazem # BPH with LUTS -chronic indwelling Ornelas -continue finasteride, Flomax # paroxysmal atrial fibrillation-rate controlled -hold Eliquis for now due to above -continue diltiazem # moderate protein calorie malnutrition -underweight with BMI 15.7 -supplements added, nutrition to follow DVT prophylaxis-SCPs for now, resume Eliquis as appropriate Full code Patient requires inpatient stay at least 2 midnights for management of acute UTI with acute metabolic encephalopathy and obstructive uropathy resulting in acute kidney injury. He will require IV antibiotics, close monitoring of renal function electrolyte levels and monitoring of mentation Quality Stroke Does the patient have a stroke diagnosis?: No VTE Prior VTE?: No VTE Risk Level:: Medical - moderate - high VTE Device Contraindication: Treatment Not Indicated VTE Drug Contraindication: N/A - Med Ordered
[2023-09-19 18:09] VITALS: BP 111/57; PULSE 53; RESP 12; O2SAT 97
--- NOTE | 2023-09-19 18:35 | PC.NURSE ---
pharmacy called/notified d/t medication not being in pyxis. pharmacy reached back out and said that they are having technical difficulties w/ the medication that was ordered and difficulties w/ the date/timing of the medication. will administer when able.
--- NOTE | 2023-09-19 18:42 | PHA.MEDREC ---
Pharmacy Consult ? Medication Reconciliation Pharmacy has completed the medication reconciliation. used list from [facility].
[2023-09-19] MEDS: Linezolid/D5W 600 MG/300 ML PIGGYBACK 300 MG IV (19:15)
[2023-09-19] MEDS: Famotidine 20 MG TABLET PO (20:14)
[2023-09-19] MEDS: Apixaban 2.5 MG TABLET PO (20:14)
[2023-09-19] MEDS: Sennosides/Docusate Sodium TABLET 2 TAB PO (20:18)
[2023-09-19] MEDS: Ascorbic Acid 500 MG TABLET PO (20:18)
[2023-09-19] MEDS: valACYclovir HCL 1,000 MG TABLET 1000 MG PO (20:18)
[2023-09-19 20:40] VITALS: BP 128/73; PULSE 67; RESP 17; O2SAT 98
--- NOTE | 2023-09-19 21:10 | PC.NURSE ---
Addendum entered by Nena Meneses 09/19/23 21:15: Bed linens changed, Pt repositioned. Original Note: This designer writer assumed care of this Pt at 1900. Pt not verbal at this time, opens eyes spontaneous to verbal stumili, respirations equal, non labored, no respiratory distress noted. Pt has 3 way F/C intact draining clear fluids on CBI. Per SAH[facility] [place] CBI to be discontinue. 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 Scabs noted to growing area and left hip. No open areas. Pt medicated per MAR, needed a lot of cues to swallow pills. Reports complete, Pt will be transported to room 373 by drug abuse technician.
[2023-09-19 21:36] VITALS: BP 125/65; RESP 18; TEMP 36.3; O2SAT 96
[2023-09-19 22:40] VITALS: BMI 16.2
[2023-09-19] MEDS: 0.9 % Sodium Chloride Flush 3 ML SYRINGE IVFLUSH (23:51)
[2023-09-20 03:55] VITALS: BP 106/61; PULSE 83; RESP 16; TEMP 37.5; O2SAT 94
[2023-09-20 06:29] LABS: MANUAL DIFF FLAG NO
[2023-09-20 06:47] LABS: Basophils Percent Auto 0.3 % (0-2); Eosinophils Percent Auto 0.1 % (0-4); Hematocrit 33.3 % (42.0-52.0); Hemoglobin 11.2 g/dl (14.0-18.0); Imm Gran Pct Auto 2.2 % (0.0-0.4); Lymphocytes Absolute Auto 1.3 X10*3/uL (1.2-4.9); Lymphocytes Percent Auto 9.9 % (20-40); Mean Corpuscular HGB Conc 33.6 g/dl (31.0-36.0); Mean Corpuscular Hemoglobin 29.9 pg (27.0-33.0); Monocytes Absolute Auto 1.1 X10*3/uL (0.1-1.2); Monocytes Percent Auto 8.1 % (2-11); Neutrophils Absolute Auto 10.6 x10*3/uL (2.0-8.3); Neutrophils Percent Auto 79.4 % (45-73); Platelet Count 309 X10*3/uL (160-400); Red Blood Count 3.74 X10*6/uL (4.60-5.80); Red Cell Distribution Width 13.1 % (11.0-16.0); White Blood Count 13.4 X10*3/uL (4.8-10.8)
[2023-09-20] MEDS: Linezolid/D5W 600 MG/300 ML PIGGYBACK 300 MG IV ×2 (06:52→21:19)
[2023-09-20 06:53] LABS: Anion Gap 17 (12-20); Blood Urea Nitrogen 52 mg/dL (9-16); Calcium 8.3 mg/dL (8.4-10.2); Carbon Dioxide 16 mmol/L (22-29); Chloride 111 mmol/L (96-108); Creatinine Clr Calc Pharmacy 14.6; Estimated Glomerular Filt Rate 22; Glucose Random 86 mg/dL (60-115); Potassium 3.7 mmol/L (3.3-5.1); Sodium 140 mmol/L (135-145)
[2023-09-20 07:53] VITALS: BP 119/68; PULSE 62; RESP 18; TEMP 36.8; O2SAT 96
[2023-09-20] MEDS: Finasteride 5 MG TABLET PO (09:02)
[2023-09-20] MEDS: Ascorbic Acid 500 MG TABLET PO ×2 (09:02→21:21)
[2023-09-20] MEDS: 0.9 % Sodium Chloride 1,000 ML 500 ML IV (09:02)
[2023-09-20] MEDS: Mirtazapine 15 MG TABLET PO (09:02)
[2023-09-20] MEDS: dilTIAZem HCL CD 120 MG CAP.ER.DEG PO (09:02)
[2023-09-20] MEDS: Apixaban 2.5 MG TABLET PO ×2 (09:03→21:21)
[2023-09-20] MEDS: Famotidine 20 MG TABLET PO ×2 (09:03→21:21)
[2023-09-20] MEDS: Cyanocobalamin (Vitamin B-12) 1,000 MCG TABLET 1000 MCG PO (09:03)
[2023-09-20] MEDS: valACYclovir HCL 1,000 MG TABLET 1000 MG PO (09:03)
[2023-09-20] MEDS: Sennosides/Docusate Sodium TABLET 2 TAB PO ×2 (09:03→21:21)
--- NOTE | 2023-09-20 09:21 | MHC.CM.PN ---
IMM DELIVERED. PHONE CALL TO MARILEE [employer] GUARDIAN TO EXPLAIN MCR RIGHTS ([phone]) WHITE COPY TO BE MAILED. 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 RETURN REFERRAL SENT
--- NOTE | 2023-09-20 10:31 | MHC.IC ---
Shingles Rash must be covered with dry dressing until lesions are dry and scabbed over.
--- NOTE | 2023-09-20 10:43 | HO.PM.IMPN ---
Subjective Subjective Date of Service: 09/20/23 Interval History: Seen in follow-up for UTI, acute metabolic encephalopathy, obstructive uropathy Interval history: Creatinine improved to 2.81. Ornelas catheter draining dark orange urine. Patient more alert, confused Review of Systems Review of Systems: Yes Unobtainable due to mental status Physical Exam Vital Signs: Vital Signs: Last Vital Signs Temp 98.2 F 09/20/23 07:53 Pulse 62 09/20/23 07:53 Resp 18 09/20/23 07:53 BP 119/68 09/20/23 07:53 Pulse Ox 96 09/20/23 07:53 O2 Del Method Room Air 09/20/23 07:53 BMI result Body Mass Index 16.2 Constitutional - Awake and Alert, No apparent distress Eyes - PERRLA, EOMI Cardiovascular - S1S2, RRR, No edema Respiratory - Normal lung expansion, Normal respiratory effort, No respiratory distress, CTA bilaterally Gastrointestinal - NT / ND; +BS; No rebound or guarding - ornelas catheter in place draining dark orange urine Extremities - no calf tenderness bilaterally, no swelling Skin - Warm/Dry Neurological - Alert & oriented to self, confused, answering yes/no questions Objective Data Active Medications Acetaminophen (Acetaminophen 325 Mg Tablet) 650 mg PO Q6H PRN PRN Reason: Pain, Mild (Pain Scale 1-3) Apixaban (Apixaban 2.5 Mg Tablet) 2.5 mg PO BID [facility] Last Admin: 09/20/23 09:03 Dose: 2.5 mg Documented By: MICHAEL Ascorbic Acid (Ascorbic Acid 500 Mg Tablet) 500 mg PO BID [facility] Last Admin: 09/20/23 09:02 Dose: 500 mg Documented By: MICHAEL Bisacodyl (Bisacodyl 10 Mg Supp.Rect) 10 mg [place] DAILY PRN PRN Reason: Constipation Cyanocobalamin (Cyanocobalamin (Vitamin B-12) 1,000 Mcg Tablet) 1,000 mcg PO DAILY [facility] Last Admin: 09/20/23 09:03 Dose: 1,000 mcg Documented By: MICHAEL Diltiazem HCl (Diltiazem Hcl Cd 120 Mg Cap.Er.Deg) 120 mg PO DAILY [facility]; Protocol Last Admin: 09/20/23 09:02 Dose: 120 mg Documented By: MICHAEL Famotidine (Famotidine 20 Mg Tablet) 20 mg PO BID [facility] Last Admin: 09/20/23 09:03 Dose: 20 mg Documented By: MICHAEL Finasteride (Finasteride 5 Mg Tablet) 5 mg PO DAILY [facility] Last Admin: 09/20/23 09:02 Dose: 5 mg Documented By: MICHAEL Ceftriaxone Sodium 1 gm/ (Sodium Chloride) 50 mls @ 100 mls/hr IV Q24H [facility] Linezolid (Zyvox/D5w) 600 mg in 300 mls @ 300 mls/hr IV Q12H [facility] Last Infusion: 09/20/23 07:55 Dose: Infused Documented By: MICHAEL Magnesium Hydroxide (Milk Of Magnesia 30 Ml Oral.Susp) 30 ml PO DAILY PRN PRN Reason: Constipation Mirtazapine (Mirtazapine 15 Mg Tablet) 15 mg PO DAILY [facility] Last Admin: 09/20/23 09:02 Dose: 15 mg Documented By: MICHAEL Ondansetron HCl (Ondansetron Hcl 4 Mg/2 Ml Vial) 4 mg IVPUSH Q8H PRN PRN Reason: Nausea and Vomiting Senna (Sennosides 8.6 Mg Tablet) 17.2 mg PO BEDTIME PRN PRN Reason: Constipation Senna/Docusate Sodium (Sennosides/Docusate Sodium Tablet) 2 tab PO BID [facility] Last Admin: 09/20/23 09:03 Dose: 2 tab Documented By: MICHAEL Sodium Biphosphate/Sodium Phosphate (Sodium Phosphate,[place]-Dibasic 133 Ml Enema) 118 ml [place] DAILY PRN PRN Reason: Constipation Sodium Chloride (0.9 % Sodium Chloride Flush 3 Ml Syringe) 3 ml IVFLUSH QSHIFT [facility] Last Admin: 09/20/23 09:03 Dose: Not Given Documented By: MICHAEL Non-Admin Reason: IV Running Valacyclovir HCl (Valacyclovir Hcl 1,000 Mg Tablet) 1,000 mg PO Q12H [facility] Stop: 09/21/23 08:01 Last Admin: 09/20/23 09:03 Dose: 1,000 mg Documented By: MICHAEL Labs 09/20/23 06:05 09/20/23 06:05 Labs: Laboratory Results - last 24 hr 09/19/23 09/19/23 09/19/23 13:51 13:55 14:41 MCV 90.0 MCH 29.6 MCHC 32.8 RDW 13.2 Plt Count 308 MPV 9.6 Immature Gran % (Auto) 0.5 H Neut % (Auto) 80.0 H Lymph % (Auto) 9.4 L [place]assen % (Auto) 9.9 Eos % (Auto) 0.0 Baso % (Auto) 0.2 Lymph # (Auto) 1.2 Lassen # (Auto) 1.3 H Eos # (Auto) 0.0 Baso # (Auto) 0.0 Abs Immat Gran (auto) 0.06 H Absolute Neuts (auto) 10.4 H Absolute Nucleated RBC 0.000 Nucleated RBC % (auto) 0.0 Anion Gap 17 Estim Creat Clear Calc 8.8 Estimated GFR 13 Random Glucose 109 Lactic Acid 1.0 Calcium 8.8 Total Bilirubin 1.1 H Direct Bilirubin 0.4 AST 31 ALT 31 Alkaline Phosphatase 72 Troponin I High Sens 11.1 D B-Natriuretic Peptide 42 Total Protein 7.2 Albumin 3.5 Lipase 10 Urine Color Dark Yellow Urine Appearance Turbid Urine pH 8.0 Ur Specific [place] 1.015 Urine Protein 300 (3+) H Urine Glucose (UA) Negative Urine Ketones Negative Urine Blood Large (3+) H Urine Nitrite Negative Ur Leukocyte Esterase Large (3+) H Urine RBC >20 H Urine WBC >50 H Ur Squamous Epith Cells 0-2 Other Crystals Present Urine Bacteria 4+ Hyaline Casts 6-10 Influenza Type A (PCR) NEGATIVE Influenza Type B (PCR) NEGATIVE RSV RNA Qual (PCR) NEGATIVE SARS-CoV-2 RNA (RT-PCR) NEGATIVE 09/20/23 06:05 MCV 89.0 MCH 29.9 MCHC 33.6 RDW 13.1 Plt Count 309 MPV 10.0 Immature Gran % (Auto) 2.2 H Neut % (Auto) 79.4 H Lymph % (Auto) 9.9 L [place]assen % (Auto) 8.1 Eos % (Auto) 0.1 Baso % (Auto) 0.3 Lymph # (Auto) 1.3 [place]assen # (Auto) 1.1 Eos # (Auto) 0.0 Baso # (Auto) 0.0 Abs Immat Gran (auto) 0.30 H Absolute Neuts (auto) 10.6 H Absolute Nucleated RBC 0.000 Nucleated RBC % (auto) 0.0 Anion Gap 17 Estim Creat Clear Calc 14.6 Estimated GFR 22 Random Glucose 86 Lactic Acid Calcium 8.3 L Total Bilirubin Direct Bilirubin AST ALT Alkaline Phosphatase Troponin I High Sens B-Natriuretic Peptide Total Protein Albumin Lipase Urine Color Urine Appearance Urine pH Ur Specific [place] Urine Protein Urine Glucose (UA) Urine Ketones Urine Blood Urine Nitrite Ur Leukocyte Esterase Urine RBC Urine WBC Ur Squamous Epith Cells Other Crystals Urine Bacteria Hyaline Casts Influenza Type A (PCR) Influenza Type B (PCR) RSV RNA Qual (PCR) SARS-CoV-2 RNA (RT-PCR) Microbiology Microbiology Results: Microbiology 09/19/23 15:53 Urine Culture - Preliminary Urine clean catch - Urine walter top Culture in progress. Assessment and Plan (1) Hematuria: Status: Acute (2) Acute UTI: Status: Acute (3) DOUGLAS (acute kidney injury): Status: Acute (4) Obstructive uropathy: Status: Acute Plan 77-year-old male with history of unspecified dementia with mood disorder, BPH with LUTS and chronic Ornelas, paroxysmal atrial fibrillation anticoagulated with Eliquis, hypertension, GERD, osteoarthritis, history MRSA UTI/bacteremia, and moderate protein calorie malnutrition recently diagnosed with herpes zoster on dose 04/17 valtrex admitted for Ornelas catheter associated UTI with obstructive uropathy and traumatic hematuria. No recurrent hematuria, creatinine improving but urine dark orange. Mentation improving, but still confused. Per [facility] ([facility]), pt is confused at baseline, confused, antsy but tolerated PO, feeds himself, and toilets indepedently. # acute UTI -3+ leukocytes, negative nitrites, 3+ blood, positive urinary sediment, 4+ bacteria -history of Morganella, MRSA, Proteus, Providencia among others UTI -IV linezolid (due to renal function) and ceftriaxone (initiated 09/18) -leukocytosis 12.9, no other SIRS criteria -follow CBC, cultures # obstructive uropathy with acute kidney injury -CT abdomen/pelvis shows severely distended urinary bladder to the level of the umbilicus with bilateral hydroureteronephrosis. Ornelas replaced. Now -4.4L -Likely post-renal DOUGLAS as patient attempted to pull out Ornelas catheter which was lodged in the prostatic urethra -Renal funciton improving, creat 2.81 today, however urine dark -1L fluid bolus, then IV NS @100ml/hr -avoid nephrotoxins -follow renal function, lytes # acute traumatic hematuria -weaned from CBI, resolved -Resume eliquis # acute metabolic encephalopathy- improving -secondary to UTI -per 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 -diagnosed 09/13 -Started on Valtrex 1 g b.i.d., renally adjusted to 1g q24h x 2 additional doses (iniated 09/13, changed 09/19) -contact precautions # hypertension -continue diltiazem # BPH with LUTS -chronic indwelling Ornelas -continue finasteride, Flomax # paroxysmal atrial fibrillation-rate controlled -Resume eliquis -continue diltiazem # moderate protein calorie malnutrition -underweight with BMI 15.7 -supplements added, nutrition to follow DVT prophylaxis-SCPs for now, resume Eliquis as appropriate Full code Patient requires ongoing inpt stay due to UTI with acute metabolic encephalopathy and DOUGLAS with history of MRSA UTI requiring ongoing broad abx, IV fluids, and finalization of cultures Quality Stroke Does the patient have a stroke diagnosis?: No VTE Prior VTE?: No VTE Risk Level:: Medical - moderate - high VTE Device Contraindication: Treatment Not Indicated VTE Drug Contraindication: N/A - Med Ordered
[2023-09-20] MEDS: 0.9 % Sodium Chloride 1,000 ML 100 ML IVCONT ×2 (10:57→21:19)
[2023-09-20] MEDS: cefTRIAXone sodium 1 GM in 0.9 % Sodium Chloride 50 ML IV (14:01)
[2023-09-20 14:11] VITALS: BMI 16.2
--- NOTE | 2023-09-20 14:19 | MHC.CLN ---
NUTRITION DIET=2 GRAM SODIUM. APPROPRIATE DUE TO DOUGLAS. ADDING ENSURE BID TO INCREASE NUTRITIONAL INTAKE. SUPPLEMENT PROVIDES 700 KCALS, 40 G PROTEIN. QUALIFIES MODERATELY MALNOURISHED WITH BMI=16.2 AND DEPLETION OF BODY FAT AND MUSCLE MASS NOTED. MONITOR PO INTAKE CLOSELY. SEE CLINICAL NUTRITION ASSESSMENT 09/20/23.
[2023-09-20 15:21] VITALS: BP 136/76; PULSE 84; RESP 18; TEMP 39.3; O2SAT 93
--- NOTE | 2023-09-20 15:37 | PC.NURSE ---
temp 102.8,Carlton Martins notified
[2023-09-20] MEDS: Acetaminophen 325 MG TABLET 650 MG PO (15:43)
[2023-09-20] MEDS: 0.9 % Sodium Chloride Flush 3 ML SYRINGE IVFLUSH (15:44)
[2023-09-20 17:00] VITALS: TEMP 37.2
[2023-09-20 19:14] VITALS: BP 140/58; PULSE 88; RESP 17; TEMP 36.9; O2SAT 96
[2023-09-21] MEDS: 0.9 % Sodium Chloride Flush 3 ML SYRINGE IVFLUSH ×2 (00:38→10:15)
--- NOTE | 2023-09-21 02:25 | PC.NURSE ---
0215- tiger text received from lab of results of second set of blood cultures with gram negative rods. Hospitalist on duty was sent update and also that pt is already receiving Linezolid and Rochepin IVABX. She replied thank you and that pt well covered. pt with no complaints, will continue to monitor labs, vitals, and condition.
[2023-09-21 03:26] VITALS: BP 120/63; PULSE 52; RESP 16; TEMP 36.4; O2SAT 97
[2023-09-21] MEDS: 0.9 % Sodium Chloride 1,000 ML 100 ML IVCONT (06:34)
[2023-09-21] MEDS: Linezolid/D5W 600 MG/300 ML PIGGYBACK 300 MG IV ×2 (06:37→20:04)
[2023-09-21 08:00] VITALS: BP 118/66; PULSE 57; RESP 18; TEMP 36.2; O2SAT 96
[2023-09-21 08:32] LABS: Anion Gap 12 (12-20); Blood Urea Nitrogen 28 mg/dL (9-16); Carbon Dioxide 18 mmol/L (22-29); Chloride 114 mmol/L (96-108); Creatinine Clr Calc Pharmacy 28.5; Estimated Glomerular Filt Rate 48; Glucose Random 138 mg/dL (60-115); Potassium 3.3 mmol/L (3.3-5.1); Sodium 141 mmol/L (135-145)
[2023-09-21] MEDS: Famotidine 20 MG TABLET PO ×2 (10:14→20:04)
[2023-09-21] MEDS: Sennosides/Docusate Sodium TABLET 2 TAB PO ×2 (10:14→20:04)
[2023-09-21] MEDS: dilTIAZem HCL CD 120 MG CAP.ER.DEG PO (10:14)
[2023-09-21] MEDS: Finasteride 5 MG TABLET PO (10:14)
[2023-09-21] MEDS: Cyanocobalamin (Vitamin B-12) 1,000 MCG TABLET 1000 MCG PO (10:15)
[2023-09-21] MEDS: Ascorbic Acid 500 MG TABLET PO ×2 (10:15→20:04)
[2023-09-21] MEDS: Mirtazapine 15 MG TABLET PO (10:15)
[2023-09-21] MEDS: Apixaban 2.5 MG TABLET PO ×2 (10:15→20:04)
[2023-09-21] MEDS: valACYclovir HCL 1,000 MG TABLET 1000 MG PO (10:15)
--- NOTE | 2023-09-21 14:03 | P.PNIM_ITS ---
Subjective Subjective Date of Service: 09/21/23 Interval History: UTI, acute metabolic encephalopathy, obstructive uropathy Review of Systems elevated creatinine no fevers ornelas has yellowish urine no abd pain Physical Exam 2 Vital Signs: Vital Signs: Last Vital Signs Temp 97.1 F 09/21/23 08:00 Pulse 57 09/21/23 08:00 Resp 18 09/21/23 08:00 BP 118/66 09/21/23 08:00 Pulse Ox 96 09/21/23 08:00 O2 Del Method Room Air 09/21/23 08:00 BMI result Body Mass Index 16.2 Appearance: Alert.? Oriented cvs: [id number], [id number] . res: clear to auscultation ,no rhonchii or wheezing abd: no rebound or guarding ,nt, bs present. ext pulses present , no cyanosis . neuro: axo1-2, move sallext Objective Data Active Medications Acetaminophen (Acetaminophen 325 Mg Tablet) 650 mg PO Q6H PRN PRN Reason: Pain, Mild (Pain Scale 1-3) Last Admin: 09/20/23 15:43 Dose: 650 mg Documented By: SHAHZAD Apixaban (Apixaban 2.5 Mg Tablet) 2.5 mg PO BID [facility] Last Admin: 09/21/23 10:15 Dose: 2.5 mg Documented By: JUSTYNA Ascorbic Acid (Ascorbic Acid 500 Mg Tablet) 500 mg PO BID [facility] Last Admin: 09/21/23 10:15 Dose: 500 mg Documented By: JUSTYNA Bisacodyl (Bisacodyl 10 Mg Supp.Rect) 10 mg MS DAILY PRN PRN Reason: Constipation Cyanocobalamin (Cyanocobalamin (Vitamin B-12) 1,000 Mcg Tablet) 1,000 mcg PO DAILY [facility] Last Admin: 09/21/23 10:15 Dose: 1,000 mcg Documented By: JUSTYNA Diltiazem HCl (Diltiazem Hcl Cd 120 Mg Cap.Er.Deg) 120 mg PO DAILY [facility]; Protocol Last Admin: 09/21/23 10:14 Dose: 120 mg Documented By: JUSTYNA Famotidine (Famotidine 20 Mg Tablet) 20 mg PO BID [facility] Last Admin: 09/21/23 10:14 Dose: 20 mg Documented By: JUSTYNA Finasteride (Finasteride 5 Mg Tablet) 5 mg PO DAILY [facility] Last Admin: 09/21/23 10:14 Dose: 5 mg Documented By: JUSTYNA Ceftriaxone Sodium 1 gm/ (Sodium Chloride) 50 mls @ 100 mls/hr IV Q24H [facility] Last Infusion: 09/20/23 14:32 Dose: Infused Documented By: MICHAEL Linezolid (Zyvox/D5w) 600 mg in 300 mls @ 300 mls/hr IV Q12H [facility] Last Infusion: 09/21/23 08:01 Dose: Infused Documented By: JUSTYNA Sodium Chloride (Ns) 1,000 mls @ 100 mls/hr IVCONT .Q10H [facility] Last Admin: 09/21/23 06:34 Dose: 100 mls/hr Documented By: SINDI Magnesium Hydroxide (Milk Of Magnesia 30 Ml Oral.Susp) 30 ml PO DAILY PRN PRN Reason: Constipation Mirtazapine (Mirtazapine 15 Mg Tablet) 15 mg PO DAILY [facility] Last Admin: 09/21/23 10:15 Dose: 15 mg Documented By: JUSTYNA Ondansetron HCl (Ondansetron Hcl 4 Mg/2 Ml Vial) 4 mg IVPUSH Q8H PRN PRN Reason: Nausea and Vomiting Senna (Sennosides 8.6 Mg Tablet) 17.2 mg PO BEDTIME PRN PRN Reason: Constipation Senna/Docusate Sodium (Sennosides/Docusate Sodium Tablet) 2 tab PO BID [facility] Last Admin: 09/21/23 10:14 Dose: 2 tab Documented By: JUSTYNA Sodium Biphosphate/Sodium Phosphate (Sodium Phosphate,[place]-Dibasic 133 Ml Enema) 118 ml [place] DAILY PRN PRN Reason: Constipation Sodium Chloride (0.9 % Sodium Chloride Flush 3 Ml Syringe) 3 ml IVFLUSH QSHIFT [facility] Last Admin: 09/21/23 10:15 Dose: 3 ml Documented By: JUSTYNA Labs 09/20/23 06:05 09/21/23 07:54 Labs: Laboratory Results - last 24 hr 09/21/23 07:54 Anion Gap 12 Estim Creat Clear Calc 28.5 Estimated GFR 48 Random Glucose 138 H Calcium 8.0 L Microbiology Microbiology Results: Microbiology 09/19/23 13:55 Blood Culture - Preliminary Blood - Venous Prelim: GNR Gram Stain only 09/19/23 15:53 Urine Culture - Preliminary Urine clean catch - Urine walter top Gram negative alejandra 09/19/23 13:51 Blood Culture - Preliminary Blood - Venous No growth after 24 hours. Assessment and Plan (1) Obstructive uropathy: Status: Acute (2) Hematuria: Status: Acute (3) Acute UTI: Status: Acute (4) DOUGLAS (acute kidney injury): Status: Acute Plan 77-year-old male with history of unspecified dementia with mood disorder, BPH with LUTS and chronic Ornelas, paroxysmal atrial fibrillation anticoagulated with Eliquis, hypertension, GERD, osteoarthritis, history MRSA UTI/bacteremia, and moderate protein calorie malnutrition recently diagnosed with herpes zoster on dose 04/17 valtrex admitted for Ornelas catheter associated UTI with obstructive uropathy and traumatic hematuria. No recurrent hematuria, creatinine improving but urine dark orange. Mentation improving, but still confused. Per [facility] ([facility]), pt is confused at baseline, confused, antsy but tolerated PO, feeds himself, and toilets indepedently. acute UTI -3+ leukocytes, negative nitrites, 3+ blood, positive urinary sediment, 4+ bacteria -history of Morganella, MRSA, Proteus, Providencia among others UTI -IV linezolid (due to renal function) and ceftriaxone (initiated 09/18) -leukocytosis 12.9, no other SIRS criteria -follow CBC, cultures,Id eval. obstructive uropathy with acute kidney injury CT abdomen/pelvis shows severely distended urinary bladder to the level of the umbilicus with bilateral hydroureteronephrosis,douglas s/p ornelas replacement (intially ornelas was disloged in prostate). Renal funciton improving, cr 1.44,urine improving yellowish colour avoid nephrotoxins,follow renal function, lytes,urology eval. acute traumatic hematuria-weaned from CBI, resolved. acute metabolic encephalopathy-secondary to UTI per [facility] ([facility]), pt confused,at baseline but feed/toilets independently continue antibiotics above,monitor mentation. 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 on Valtrex 1 g b.i.d., renally adjusted to 1g q24h x 2 additional doses (iniated 09/13, changed 09/19) contact precautions hypertension-Bp stable. continue diltiazem BPH with LUTS-chronic indwelling Ornelas continue finasteride, Flomax paroxysmal atrial fibrillation-rate controlled-Resume eliquis continue diltiazem moderate protein calorie malnutrition supplements added, nutrition to follow DVT prophylaxis-SCPs for now, resume Eliquis as appropriate Full code ongoing hospitlisation stay- inpt stay due to UTI with acute metabolic encephalopathy and DOUGLAS with history of MRSA UTI requiring ongoing broad abx, IV fluids, and finalization of cultures,also urology expert input for b/l hydronephrosis and douglas-need iv hydration. Quality Stroke Does the patient have a stroke diagnosis?: No VTE Prior VTE?: No VTE Risk Level:: Medical - moderate - high VTE Device Contraindication: Treatment Not Indicated VTE Drug Contraindication: N/A - Med Ordered
[2023-09-21] MEDS: cefTRIAXone sodium 1 GM in 0.9 % Sodium Chloride 50 ML IV (14:27)
[2023-09-21 15:06] VITALS: BP 128/73; PULSE 56; RESP 16; TEMP 36.4; O2SAT 97
[2023-09-21] MEDS: 0.9 % Sodium Chloride 1,000 ML 70 ML IVCONT (16:30)
[2023-09-22] MEDS: 0.9 % Sodium Chloride Flush 3 ML SYRINGE IVFLUSH ×3 (00:15→17:00)
[2023-09-22 04:00] VITALS: BP 123/73; PULSE 54; RESP 19; TEMP 36.7; O2SAT 94
[2023-09-22] MEDS: Linezolid/D5W 600 MG/300 ML PIGGYBACK 300 MG IV ×2 (06:31→22:23)
[2023-09-22] MEDS: 0.9 % Sodium Chloride 1,000 ML 70 ML IVCONT (06:35)
[2023-09-22 08:00] VITALS: BP 125/63; PULSE 50; RESP 18; TEMP 36.9; O2SAT 95
[2023-09-22 09:18] LABS: Anion Gap 9 (12-20); Blood Urea Nitrogen 16 mg/dL (9-16); Carbon Dioxide 20 mmol/L (22-29); Chloride 114 mmol/L (96-108); Estimated Glomerular Filt Rate > 60; Glucose Random 112 mg/dL (60-115); Sodium 140 mmol/L (135-145)
--- NOTE | 2023-09-22 10:06 | MHC.CLN ---
F/U PO APPEARS TO BE VERY POOR. DIET=2 GRAM SODIUM WITH ENSURE BID. RECOMMEND LIBERALIZE DIET TO REGULAR TO PROMOTE PO INTAKE. INCREASE SUPPLEMENT TO ENSURE TID (1050 KCALS/60 G PROTEIN). QUALIFIES MODERATELY MALNOURISHED WITH BMI=16.2 AND DEPLETION OF BODY FAT AND MUSCLE MASS NOTED. MONITOR PO INTAKE CLOSELY.
[2023-09-22] MEDS: dilTIAZem HCL CD 120 MG CAP.ER.DEG PO (10:16)
[2023-09-22] MEDS: valACYclovir HCL 1,000 MG TABLET 1000 MG PO (10:16)
[2023-09-22] MEDS: Famotidine 20 MG TABLET PO ×2 (10:16→22:24)
[2023-09-22] MEDS: Sennosides/Docusate Sodium TABLET 2 TAB PO ×2 (10:16→22:25)
[2023-09-22] MEDS: Mirtazapine 15 MG TABLET PO (10:16)
[2023-09-22] MEDS: Ascorbic Acid 500 MG TABLET PO ×2 (10:16→22:25)
[2023-09-22] MEDS: Finasteride 5 MG TABLET PO (10:16)
[2023-09-22] MEDS: Cyanocobalamin (Vitamin B-12) 1,000 MCG TABLET 1000 MCG PO (10:17)
[2023-09-22] MEDS: Apixaban 2.5 MG TABLET PO ×2 (10:17→22:25)
--- NOTE | 2023-09-22 12:35 | P.PNIM_ITS ---
Subjective Subjective Date of Service: 09/22/23 Interval History: UTI, acute metabolic encephalopathy, obstructive uropathy Review of Systems elevated creatinine no fevers ornelas has yellowish urine no abd pain Physical Exam 2 Vital Signs: Vital Signs: Last Vital Signs Temp 98.4 F 09/22/23 08:00 Pulse 50 09/22/23 08:00 Resp 18 09/22/23 08:00 BP 125/63 09/22/23 08:00 Pulse Ox 95 09/22/23 08:00 O2 Del Method Room Air 09/22/23 08:00 BMI result Body Mass Index 16.2 Appearance: Alert.? Oriented cvs: rrr, [id number] . res: clear to auscultation ,no rhonchii or wheezing abd: no rebound or guarding ,nt, bs present. ext pulses present , no cyanosis . neuro: axo1-2, move sallext Objective Data Active Medications Acetaminophen (Acetaminophen 325 Mg Tablet) 650 mg PO Q6H PRN PRN Reason: Pain, Mild (Pain Scale 1-3) Last Admin: 09/20/23 15:43 Dose: 650 mg Documented By: SHAHZAD Apixaban (Apixaban 2.5 Mg Tablet) 2.5 mg PO BID [facility] Last Admin: 09/22/23 10:17 Dose: 2.5 mg Documented By: JUSTYNA Ascorbic Acid (Ascorbic Acid 500 Mg Tablet) 500 mg PO BID [facility] Last Admin: 09/22/23 10:16 Dose: 500 mg Documented By: JUSTYNA Bisacodyl (Bisacodyl 10 Mg Supp.Rect) 10 mg [place] DAILY PRN PRN Reason: Constipation Cyanocobalamin (Cyanocobalamin (Vitamin B-12) 1,000 Mcg Tablet) 1,000 mcg PO DAILY [facility] Last Admin: 09/22/23 10:17 Dose: 1,000 mcg Documented By: JUSTYNA Comments: barcode torn Diltiazem HCl (Diltiazem Hcl Cd 120 Mg Cap.Er.Deg) 120 mg PO DAILY [facility]; Protocol Last Admin: 09/22/23 10:16 Dose: 120 mg Documented By: JUSTYNA Famotidine (Famotidine 20 Mg Tablet) 20 mg PO BID [facility] Last Admin: 09/22/23 10:16 Dose: 20 mg Documented By: JUSTYNA Finasteride (Finasteride 5 Mg Tablet) 5 mg PO DAILY [facility] Last Admin: 09/22/23 10:16 Dose: 5 mg Documented By: JUSTYNA Ceftriaxone Sodium 1 gm/ (Sodium Chloride) 50 mls @ 100 mls/hr IV Q24H [facility] Last Infusion: 09/21/23 15:26 Dose: Infused Documented By: JUSTYNA Linezolid (Zyvox/D5w) 600 mg in 300 mls @ 300 mls/hr IV Q12H [facility] Last Infusion: 09/22/23 07:36 Dose: Infused Documented By: JUSTYNA Magnesium Hydroxide (Milk Of Magnesia 30 Ml Oral.Susp) 30 ml PO DAILY PRN PRN Reason: Constipation Mirtazapine (Mirtazapine 15 Mg Tablet) 15 mg PO DAILY [facility] Last Admin: 09/22/23 10:16 Dose: 15 mg Documented By: JUSTYNA Ondansetron HCl (Ondansetron Hcl 4 Mg/2 Ml Vial) 4 mg IVPUSH Q8H PRN PRN Reason: Nausea and Vomiting Potassium Chloride (Potassium Chloride Er 20 Meq Tab.Er.Prt) 20 meq PO BID [facility] Senna (Sennosides 8.6 Mg Tablet) 17.2 mg PO BEDTIME PRN PRN Reason: Constipation Senna/Docusate Sodium (Sennosides/Docusate Sodium Tablet) 2 tab PO BID [facility] Last Admin: 09/22/23 10:16 Dose: 2 tab Documented By: JUSTYNA Sodium Biphosphate/Sodium Phosphate (Sodium Phosphate,[place]-Dibasic 133 Ml Enema) 118 ml [place] DAILY PRN PRN Reason: Constipation Sodium Chloride (0.9 % Sodium Chloride Flush 3 Ml Syringe) 3 ml IVFLUSH QSHIFT [facility] Last Admin: 09/22/23 10:17 Dose: 3 ml Documented By: JUSTYNA Valacyclovir HCl (Valacyclovir Hcl 1,000 Mg Tablet) 1,000 mg PO Q24H [facility] Stop: 09/23/23 11:01 Last Admin: 09/22/23 10:16 Dose: 1,000 mg Documented By: JUSTYNA Labs 09/20/23 06:05 09/22/23 08:27 Labs: Laboratory Results - last 24 hr 09/22/23 08:27 Hold Purple Top SEE NOTE Anion Gap 9 L Estim Creat Clear Calc 38.0 Estimated GFR > 60 Random Glucose 112 Calcium 8.0 L Microbiology Microbiology Results: Microbiology 09/19/23 13:55 Blood Culture - Preliminary Blood - Venous Proteus species 09/19/23 15:53 Urine Culture - Preliminary Urine clean catch - Urine walter top Proteus mirabilis Enterococcus/Streptococcus sp 09/19/23 13:51 Blood Culture - Preliminary Blood - Venous No growth after 48 hours. Assessment and Plan (1) Obstructive uropathy: Status: Acute (2) Hematuria: Status: Acute (3) Acute UTI: Status: Acute (4) DOUGLAS (acute kidney injury): Status: Acute Plan 77-year-old male with history of unspecified dementia with mood disorder, BPH with LUTS and chronic Ornelas, paroxysmal atrial fibrillation anticoagulated with Eliquis, hypertension, GERD, osteoarthritis, history MRSA UTI/bacteremia, and moderate protein calorie malnutrition recently diagnosed with herpes zoster on dose 04/17 valtrex admitted for Ornelas catheter associated UTI with obstructive uropathy and traumatic hematuria. No recurrent hematuria, creatinine improving but urine dark orange. Mentation improving, but still confused. Per [facility] ([facility]), pt is confused at baseline, confused, antsy but tolerated PO, feeds himself, and toilets indepedently. acute UTI-3+ leukocytes, negative nitrites, 3+ blood, positive urinary sediment, 4+ bacteria history of Morganella, MRSA, Proteus, Providencia among others UTI wbc : 12.9 -13.4, no other SIRS criteria continue IV linezolid (due to renal function) and ceftriaxone (initiated 09/18). follow CBC, cultures,Id eval. obstructive uropathy with acute kidney injury CT abdomen/pelvis shows severely distended urinary bladder to the level of the umbilicus with bilateral hydroureteronephrosis,douglas s/p ornelas replacement (intially ornelas was disloged in prostate). Renal funciton improving, cr 1.08,urine improving yellowish colour avoid nephrotoxins,follow renal function, lytes,urology eval. acute traumatic hematuria-weaned from CBI, resolved. acute metabolic encephalopathy-secondary to UTI per [facility] ([facility]), pt confused,at baseline but feed/toilets independently continue antibiotics above,monitor mentation. 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 on Valtrex 1 g b.i.d., renally adjusted to 1g q24h x 2 additional doses (iniated 09/13, changed 09/19) contact precautions hypertension-Bp stable. continue diltiazem BPH with LUTS-chronic indwelling Ornelas continue finasteride, Flomax paroxysmal atrial fibrillation-rate controlled-Resume eliquis continue diltiazem moderate protein calorie malnutrition supplements added, nutrition to follow DVT prophylaxis-SCPs for now, resume Eliquis as appropriate Full code ongoing hospitlisation stay- inpt stay due to UTI with acute metabolic encephalopathy and DOUGLAS with history of MRSA UTI requiring ongoing broad abx, IV fluids, and finalization of cultures,also urology expert input for b/l hydronephrosis and douglas-need iv hydration. Quality Stroke Does the patient have a stroke diagnosis?: No VTE Prior VTE?: No VTE Risk Level:: Medical - moderate - high VTE Device Contraindication: Treatment Not Indicated VTE Drug Contraindication: N/A - Med Ordered
[2023-09-22] MEDS: Potassium Chloride ER 20 MEQ TAB.ER.PRT PO ×2 (13:26→22:24)
[2023-09-22] MEDS: cefTRIAXone sodium 1 GM in 0.9 % Sodium Chloride 50 ML IV (13:27)
--- NOTE | 2023-09-22 14:50 | MHC.CM.PN ---
EMR REVIEWED, PER HOSPITALIST PT IMPROVING, UROLOGY PENDING, ANTIC PT WILL RETURN TO LTC AT [facility] IN 1-2 DAYS, MM UPDATED AND CM WILL CONT TO FOLLOW DC NEEDS.
[2023-09-22 15:32] VITALS: BP 142/94; PULSE 65; RESP 16; TEMP 36.9; O2SAT 97
[2023-09-22 20:00] VITALS: BP 150/79; PULSE 50; RESP 17; TEMP 36.3; O2SAT 96
[2023-09-23] MEDS: 0.9 % Sodium Chloride Flush 3 ML SYRINGE IVFLUSH ×2 (00:01→09:49)
[2023-09-23 03:39] VITALS: BP 137/71; PULSE 51; RESP 16; TEMP 36.2; O2SAT 95
[2023-09-23] MEDS: Linezolid/D5W 600 MG/300 ML PIGGYBACK 300 MG IV (06:23)
[2023-09-23 07:42] VITALS: BP 138/77; PULSE 52; RESP 18; TEMP 37; O2SAT 98
[2023-09-23] MEDS: Ascorbic Acid 500 MG TABLET PO (09:33)
[2023-09-23] MEDS: Mirtazapine 15 MG TABLET PO (09:33)
[2023-09-23] MEDS: Potassium Chloride ER 20 MEQ TAB.ER.PRT PO (09:33)
[2023-09-23] MEDS: Cyanocobalamin (Vitamin B-12) 1,000 MCG TABLET 1000 MCG PO (09:33)
[2023-09-23] MEDS: Apixaban 2.5 MG TABLET PO (09:34)
[2023-09-23] MEDS: Finasteride 5 MG TABLET PO (09:34)
[2023-09-23] MEDS: Famotidine 20 MG TABLET PO (09:34)
[2023-09-23] MEDS: Sennosides/Docusate Sodium TABLET 2 TAB PO (09:34)
[2023-09-23] MEDS: Potassium Chloride Packet 20 MEQ PACKET 40 MEQ PO (10:50)
[2023-09-23] MEDS: valACYclovir HCL 1,000 MG TABLET 1000 MG PO (10:51)
--- NOTE | 2023-09-23 11:03 | MHC.CM.PN ---
EMR reviewed. Per MD rounds patient is medically cleared for dc, return to LTC at [facility]. S transportation booked for 12:30pm. RN, and guardian aware. IMM verbally delivered to guardian. Copy to be mailed.
[2023-09-23] MEDS: cefuroxime axetiL 500 MG TABLET PO (11:52)
[2023-09-23] MEDS: Linezolid 600 MG TABLET PO (11:52)
--- NOTE | 2023-09-23 11:56 | PM.DS ---
DS: Providers Provider Date of Service: 09/23/23 Date of admission: 09/19/23 17:08 Date of discharge: 09/23/23 Primary care physician: Rajesh Son MD Consults: 09/20/23 08:57 Consult to Infectious Diseases Stat Consulting Provider: [facility] [place] Infectious Disease Reason for consultation: LINEZOLID 09/21/23 07:45 Consult to Urology Routine Consulting Provider: [facility] [place] Urology Services Reason for consultation: obstructive uropathy Has provider been notified: No 09/23/23 10:25 Consult to Infectious Diseases Routine Consulting Provider: [facility] [place] Infectious Disease Reason for consultation: uti- protues mirabilus /entrococcus ,also proteus bacteremia Has provider been notified: No Attending physician on discharge: Claude Rodríguez Discharging clinician: Claude Rodríguez DS: Diagnosis Discharge Diagnosis (1) Obstructive uropathy: Status: Acute (2) Hematuria: Status: Acute (3) Acute UTI: Status: Acute (4) DOUGLAS (acute kidney injury): Status: Acute DS: Summary Hospital Course Hospital Course: 77-year-old male with history of unspecified dementia with mood disorder, BPH with LUTS and chronic Ornelas, paroxysmal atrial fibrillation anticoagulated with Eliquis, hypertension, GERD, osteoarthritis, history MRSA UTI/bacteremia, and moderate protein calorie malnutrition herpes zoster on dose 04/17 valtrex presented to the ED earlier today from [facility] where he resides due to altered mental status and attempting to pull out his Ornelas catheter resulting in hematuria. The patient is altered and unable to provide history. Per nursing facility staff/ED report, changes in mental status were noted this morning. On arrival, patient febrile to 100.7, vitals otherwise stable. There is a leukocytosis of 12.9. He has a stable normocytic anemia with H/H 11.2/34.1%. Creatinine 4.49, baseline around 1. BUN 51. Electrolyte levels normal except for CO2 18. Hepatic function within normal limits. Troponin 11.1, BNP 42. Urinalysis significant for 3+ leukocytes, negative nitrites, 3+ blood, 3+ protein, positive urinary sediment, 4+ bacteria. Negative for COVID, influenza, RSV. Head CT negative for any acute intracranial abnormality. CT abdomen/pelvis shows markedly distended urinary bladder to the umbilicus with mild bilateral hydroureteronephrosis and Ornelas catheter balloon within the prostatic urethra. Incidentally seen is indeterminate sclerotic lesion of the T12 vertebral body possibly osseous metastasis not excluded. There also multiple nonobstructing left lower pole renal stones. Also shows possible patchy consolidation in the lingula possibly representing atelectasis versus focus of aspiration versus infection. CXR negative for any acute cardiopulmonary abnormality. In the ED has received Tylenol, 1 L IV NS, and Rocephin. Hospital course: 77-year-old male with history of unspecified dementia with mood disorder, BPH with LUTS and chronic Ornelas, paroxysmal atrial fibrillation anticoagulated with Eliquis, hypertension, GERD, osteoarthritis, history MRSA UTI/bacteremia, and moderate protein calorie malnutrition recently diagnosed with herpes zoster on dose 04/17 valtrex admitted for Ornelas catheter associated UTI with obstructive uropathy and traumatic hematuria. No recurrent hematuria, creatinine improving but urine dark orange. Mentation improving, but still confused. Per [facility] ([place]), pt is confused at baseline, confused, antsy but tolerated PO, feeds himself, and toilets indepedently. acute UTI-3+ leukocytes, negative nitrites, 3+ blood, positive urinary sediment, 4+ bacteria wbc : 12.9 -13.4, no other SIRS criteria,no fevers urine culture -Proteus mirabilis/Enterococcus faecalis, blood culture-Proteus mirabilis patient seems imporving ,no fevers started IV linezolid and ceftriaxone (initiated 09/18)- swtichted to linezolid 600 mg bid and ceftin 500 mg bid (last date 10/04/23). obstructive uropathy with acute kidney injury CT abdomen/pelvis shows severely distended urinary bladder to the level of the umbilicus with bilateral hydroureteronephrosis,douglas s/p ornelas replacement (intially ornelas was disloged in prostate). Ornelas change the, given IV hydration patient is producing urine, hematuria and DOUGLAS resolved. Discussed with urology-recommended to continue Ornelas and follow-up with Urology outpatient. acute traumatic hematuria-weaned from CBI, resolved. acute metabolic encephalopathy-secondary to UTI per [facility] ([facility]), pt confused,at baseline. continue antibiotics above,monitor mentation. 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 Completed Valtrex .contact precautions moderate protein calorie malnutrition supplements added,consider nutrition followup. Incidental finding of Ct abd :Indeterminate sclerotic lesion in the T12 vertebral body for which an osseous metastasis cannot be excluded. as per patient hx does not seem any hx of malignancy. Discussed with oncology Dr becerril- further evaluation with a nuclear medicine bone scan outpatient for further workup . plan: moniter renal function and electrolytes ,follow up urology uti(please see above),proteus bacteremia -complete linezolid 600 mg bid and ceftin 500 mg bid (last date 10/04/23). abnormal ct abd -Indeterminate sclerotic lesion in the T12 vertebral body - bone scan outpatient for further workup .consider outpatient oncology evaluation. Above management discussed with the patient in detail length she understand and in agreement with the above plan, time spent 50 minutes and 50% time spent on counseling. Time Attestation Total time managing care of this patient today: 50 mintues. Discharge Coordination Time (in mins): 50min Quality: Safe Use of Opioids Does Pt have an Active Cancer Diagnosis on the Problem List?: No Quality: Stroke Does the patient have a stroke diagnosis?: No Physical Exam Vital Signs: Vital Signs: Last Vital Signs Temp 98.6 F 09/23/23 07:42 Pulse 52 09/23/23 07:42 Resp 18 09/23/23 07:42 BP 138/77 09/23/23 07:42 Pulse Ox 98 09/23/23 07:42 O2 Del Method Room Air 09/23/23 07:42 BMI result Body Mass Index 16.2 Appearance: Alert.? Oriented cvs: rrr, [id number] . res: clear to auscultation ,no rhonchii or wheezing abd: no rebound or guarding ,nt, bs present. ext pulses present , no cyanosis . neuro: axo2, move sallext DS: Data Data Completed and Pending Completed studies during hospitalization [Text1]: Procedures Insertion of Infusion Device into Superior Vena Cava, Percutaneous Approach (08/03/22) Ultrasonography of Superior Vena Cava, Guidance (08/03/22) Labs on day of discharge: Laboratory Results - last 24 hr 09/23/23 08:35 Potassium 3.0 L Preliminary micro results at discharge 09/19/23 13:51 Blood Culture - Preliminary Blood - Venous No growth after 48 hours. Imaging Chest x-ray: Radiologist's impression: ITS Impressions Chest X-Ray 09/19/23 13:18 IMPRESSION: * Clear lungs. Abdomen/Pelvis CT 09/19/23 13:31 IMPRESSION: * Urinary bladder is markedly distended to the level of the umbilicus with mild bilateral hydroureteronephrosis with the Ornelas catheter balloon inflated within the prostatic urethra, recommend repositioning. Foci of gas are noted within the bladder may be related to instrumentation. * Indeterminate sclerotic lesion in the T12 vertebral body for which an osseous metastasis cannot be excluded. Recommend correlation with any history of malignancy and further evaluation with a nuclear medicine bone scan. * Multiple nonobstructing left lower pole renal stones measuring up to 1.3 cm. Few punctate hyperdense foci along the dependent right aspect of the bladder may reflect tiny bladder stones versus bladder wall calcification. * Patchy consolidation in the lingula may reflect atelectasis versus a focus of aspiration or infection. * Heart is borderline enlarged, partially imaged. * Cholelithiasis without evidence of acute cholecystitis. Head CT 09/19/23 13:31 IMPRESSION: No new acute intracranial abnormality. Stable chronic findings as above. Discharge Plan Discharge Anticipated Discharge Date/Time: 09/23/23 10:19 Patient Disposition: Xfer SNF Discharge Diagnosis: douglas, hydronephrosis and traumatic hematuria Referrals: Noel May [Outside] - 1 Day (Resume skilled nursing care) Rajesh Son MD [Primary Care Provider] - 1 Week Discharge Medications: New linezolid 600 mg Tablet 600 mg PO Q12H Qty: 22 0RF Rx Instructions: end date for linezolid 10/04/23 cefuroxime axetil 500 mg tablet 500 mg PO BID Qty: 22 0RF Rx Instructions: end date for ceftin use 10/04/23 Continued cyanocobalamin (vitamin B-12) 1,000 mcg Tablet 1,000 mcg PO DAILY famotidine 20 mg Tablet 20 mg PO BID mirtazapine 15 mg Tablet 15 mg PO DAILY finasteride 5 mg Tablet 5 mg PO DAILY Eliquis 2.5 mg Tablet 2.5 mg PO BID acetaminophen [Tylenol] 325 mg Tablet 650 mg PO Q6H PRN (Reason: Fever Or Pain) Rx Instructions: DO NOT EXCEED 3 G IN 24 HRS sennosides-docusate sodium [Senna with Docusate Sodium] 8.6-50 mg Tablet 2 tab-cap PO BID magnesium hydroxide [Milk of Magnesia] 400 mg/5 mL Suspension 30 ml PO DAILY PRN (Reason: Constipation) bisacodyl 10 mg Suppository 10 mg OK DAILY PRN (Reason: Constipation) Fleet Enema 19-7 gram/118 mL Enema 118 ml OK DAILY PRN (Reason: Constipation) valacyclovir 1 gram tablet 1,000 mg PO Q12H Rx Instructions: for 10 days End date: 09/23/2023 ascorbic acid (vitamin C) [Vitamin C] 500 mg Tablet 500 mg PO BID diltiazem HCl 120 mg capsule,extended release 12 hr 120 mg PO DAILY Discharge Orders: Discharge Order (Routine); Ordered 09/23/23 Ordered By: Claude Rodríguez Diet: Advance to usual diet Activity on Discharge: As tolerated Stand Alone Forms: Patient Portal Discharge page Care Plan Goals: 77-year-old male with history of unspecified dementia with mood disorder, BPH with LUTS and chronic Ornelas, paroxysmal atrial fibrillation anticoagulated with Eliquis, hypertension, GERD, osteoarthritis, history MRSA UTI/bacteremia, and moderate protein calorie malnutrition recently diagnosed with herpes zoster on dose 04/17 valtrex admitted for Ornelsa catheter associated UTI with obstructive uropathy and traumatic hematuria. No recurrent hematuria, creatinine improving but urine dark orange. Mentation improving, but still confused. Per [facility] ([facility]), pt is confused at baseline, confused, antsy but tolerated PO, feeds himself, and toilets indepedently. acute UTI-3+ leukocytes, negative nitrites, 3+ blood, positive urinary sediment, 4+ bacteria wbc : 12.9 -13.4, no other SIRS criteria,no fevers urine culture -Proteus mirabilis/Enterococcus faecalis, blood culture-Proteus mirabilis patient seems imporving ,no fevers started IV linezolid and ceftriaxone (initiated 09/18)- swtichted to linezolid 600 mg bid and ceftin 500 mg bid (last date 10/04/23). obstructive uropathy with acute kidney injury CT abdomen/pelvis shows severely distended urinary bladder to the level of the umbilicus with bilateral hydroureteronephrosis,douglas s/p ornelas replacement (intially ornelas was disloged in prostate). Ornelas change the, given IV hydration patient is producing urine, hematuria and DOUGLAS resolved. Discussed with urology-recommended to continue Ornelas and follow-up with Urology outpatient. acute traumatic hematuria-weaned from CBI, resolved. acute metabolic encephalopathy-secondary to UTI per [facility] ([facility]), pt confused,at baseline. continue antibiotics above,monitor mentation. 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 Completed Valtrex .contact precautions moderate protein calorie malnutrition supplements added,consider nutrition followup in rehab. Health Concerns: as above. Plan of Treatment: moniter renal function and electrolytes ,follow up urology complete linezolid 600 mg bid and ceftin 500 mg bid (last date 10/04/23). Assessment: as above.
--- NOTE | 2023-09-27 14:34 | P.CDIM_ITS ---
PROVIDER RESPONSE TEXT: To clarify, the appropriate diagnosis supported by the clinical indicators: Other (explain): no sepsis QUERY TEXT: PHYSICIAN'S DOCUMENTATION REQUEST Date of Query: 09/27/2023 01:45 PM EDT Patient Name: Joel Acevedo Admit Date: 09/19/2023 Dear Claude Rodríguez, A review of the medical record indicates additional documentation may be needed. Please review below and update the documentation accordingly. Documentation on the ER Physician Documentation dated 09/19/23 included the diagnosis of Sepsis. The patient's infectious clinical indicators include: WBC 12.9 T 100.7 LA 1.0 No lactic acidosis, no septic shock UTI with Sepsis patient received a 1 L of normal saline and Ceftriaxone IV Discharge Summary dated 09/23/23 does not include Sepsis as a discharge diagnosis Recognized standard criteria for this condition and other infectious definitions includes: Sepsis Systemic manifestations of infection, with 2 or more SIRS criteria which include: Fever > 100.4?F or hypothermia < 96.8?F Leukocytosis - WBC > 12,000 or leukopenia, WBC < 4,000, or > 10% bands Tachycardia- > 90 beats/minute Tachypnea- RR > 20 breaths/minute or PaCO2 < 32mmHg Source: [employer] Manual 2013 Documentation should include the known or suspected organism, and the underlying infection, such as U TI or pneumonia Based on the above information and the recognized standard for sepsis, could you please clarify if th is diagnoses is still accurate and reflective of the patient's condition to ensure quality of the medical record. Sepsis is/was present on admission and is a clinical diagnosis After study, Sepsis has been ruled out Other (explain) Clinically unable to determine (explain) Thank you, Kaye Dasilva RN Use of terms such as suspected, likely, concern for, or probable (associated with a specific diagnosi s that is being evaluated, monitored, or treated as if it exists) are acceptable and can be coded in the inpatient se tting, when documented at the time of discharge. Please use your independent medical judgment in providing your response. THIS QUERY IS PART OF THE PERMANENT MEDICAL RECORD
== END 2023-09-23 13:03 | disposition skilled nursing facility (03) | DRG 698 ==
LOC: HO.ED 16:41 → HO.EDOVER 17:26 → HO.S3 19:22
PROVIDERS: Admitting Provider Physician Assistant; Emergency Provider Emergency Medicine; PCP Family Medicine; Visit Provider Internal Medicine
DX: T83.511A Infection and inflammatory reaction due to indwelling urethral catheter, initial encounter (principal); G93.41 Metabolic encephalopathy; N13.6 Pyonephrosis; E44.0 Moderate protein-calorie malnutrition; Z68.1 Body mass index [BMI] 19.9 or less, adult; N13.8 Other obstructive and reflux uropathy; N17.9 Acute kidney failure, unspecified; F03.93 Unspecified dementia, unspecified severity, with mood disturbance; B96.4 Proteus (mirabilis) (morganii) as the cause of diseases classified elsewhere; B95.2 Enterococcus as the cause of diseases classified elsewhere; E87.6 Hypokalemia; D64.9 Anemia, unspecified; B00.1 Herpesviral vesicular dermatitis; R31.0 Gross hematuria; N40.1 Benign prostatic hyperplasia with lower urinary tract symptoms; I48.0 Paroxysmal atrial fibrillation; Z20.822 Contact with and (suspected) exposure to COVID-19; I10 Essential (primary) hypertension; Z79.01 Long term (current) use of anticoagulants; Z79.899 Other long term (current) drug therapy; Z86.14 Personal history of Methicillin resistant Staphylococcus aureus infection
CPT/HCPCS: 0241U; 36415; 70450; 71045; 74176; 80048; 80076; 81001; 83605; 83690; 83880; 84132; 84484; 85025; 87040; 87077; 87086; 87088; 87186; 87205; 93005; 99285; C1758; J0696; J2020

== ENCOUNTER → 2023-09-19 12:53 | Outpatient (BNV) | payer MEDICARE, MEDICAID, SELFPAY | PROVIDERS: Admitting Provider Physician Assistant; Emergency Provider Emergency Medicine; PCP Family Medicine; Visit Provider Internal Medicine | DX: I49.1 Atrial premature depolarization (principal); R41.82 Altered mental status, unspecified | CPT/HCPCS: 93010 ==

== ENCOUNTER → 2023-09-19 17:08 | Outpatient (BNV) | payer MEDICARE, MEDICAID, SELFPAY | PROVIDERS: Admitting Provider Physician Assistant; Emergency Provider Emergency Medicine; PCP Family Medicine; Visit Provider Physician Assistant | DX: R31.9 Hematuria, unspecified (principal); N17.9 Acute kidney failure, unspecified; N39.0 Urinary tract infection, site not specified | CPT/HCPCS: 99223; 99232; 99233; 99239 ==

== ENCOUNTER 2023-11-01 05:55 | Outpatient (REF) | payer SELFPAY ==
[2023-11-01 05:50] LABS: MANUAL DIFF FLAG NO
[2023-11-01 06:42] LABS: Anion Gap 9 (12-20); Blood Urea Nitrogen 17 mg/dL (9-16); Calcium 8.4 mg/dL (8.4-10.2); Carbon Dioxide 26 mmol/L (22-29); Chloride 110 mmol/L (96-108); Estimated Glomerular Filt Rate > 60; Glucose Random 78 mg/dL (60-115); Potassium 3.2 mmol/L (3.3-5.1); Sodium 142 mmol/L (135-145)
[2023-11-01 06:44] LABS: Basophils Absolute Auto 0.1 X10*3/uL (0.0-0.2); Eosinophils Absolute Auto 0.3 X10*3/uL (0.0-0.4); Eosinophils Percent Auto 4.3 % (0-4); Hematocrit 32.2 % (42.0-52.0); Hemoglobin 10.5 g/dl (14.0-18.0); Imm Gran Abs Auto 0.01 X10*3/uL (0.00-0.03); Imm Gran Pct Auto 0.2 % (0.0-0.4); Lymphocytes Absolute Auto 2.3 X10*3/uL (1.2-4.9); Lymphocytes Percent Auto 36.8 % (20-40); Mean Corpuscular HGB Conc 32.6 g/dl (31.0-36.0); Mean Corpuscular Hemoglobin 29.6 pg (27.0-33.0); Mean Corpuscular Volume 90.7 fL (80.0-98.0); Mean Platelet Volume 10.5 fL (9.4-12.4); Monocytes Absolute Auto 0.5 X10*3/uL (0.1-1.2); Monocytes Percent Auto 7.7 % (2-11); Neutrophils Absolute Auto 3.1 x10*3/uL (2.0-8.3); Platelet Count 266 X10*3/uL (160-400); Red Blood Count 3.55 X10*6/uL (4.60-5.80); Red Cell Distribution Width 14.2 % (11.0-16.0); White Blood Count 6.3 X10*3/uL (4.8-10.8)
== END 2023-11-01 05:56 | disposition home or self-care (01) ==
LOC: HO.MMNH3L 05:55
PROVIDERS: Visit Provider Family Medicine
DX: G93.41 Metabolic encephalopathy (principal); N39.0 Urinary tract infection, site not specified; F41.8 Other specified anxiety disorders
CPT/HCPCS: 36415; 80048; 85025

== ENCOUNTER 2023-12-27 09:41 | Emergency (ER) | payer MEDICARE, MEDICAID, SELFPAY ==
--- NOTE | ~2023-12-27 | CT_ITS ---
EXAMINATION: CT ABDOMEN AND PELVIS WITH CONTRAST CLINICAL INFORMATION: Abdominal pain after pulling out Moreau with inflated balloon COMPARISON: CT abdomen pelvis 09/19/2023 TECHNIQUE: Multidetector volumetric images were obtained from the superior aspect of the liver through the pubic symphysis following administration 85 mL of Omnipaque 350 intravenous contrast. Sagittal and coronal reformatted images were obtained on the technologist's workstation. Oral contrast: No This CT examination was performed using dose optimization techniques as appropriate, variously including the following: *Automated exposure control *Adjustment of mA and/or kV according to patient size (this includes techniques or standardized protocols for targeted exams where dose is matched to indication/reason for exam; i.e. extremities or head) *Use of iterative reconstruction technique DLP: 561 mGy-cm FINDINGS: LUNG BASES: The visualized lung bases are unremarkable. LIVER, GALLBLADDER, AND BILIARY TREE: The liver is normal in size, shape, and attenuation. No focal hepatic lesion or biliary ductal dilatation is present. The gallbladder contains a single large 2.6 cm calculus. The common bile duct is dilated at 1 cm and in the distal common bile duct there appears to be a 0.9 cm stone. No gallbladder wall thickening, or obvious pericholecystic inflammatory changes. PANCREAS: Unremarkable. SPLEEN: Unremarkable. ADRENAL GLANDS: Unremarkable. KIDNEYS AND URETERS: The kidneys are normal in size, shape, and attenuation. No hydronephrosis, hydroureter, or calculi seen. Multiple bilateral cortical and parapelvic benign Bosniak class I renal cysts are noted the largest measuring 3.0 cm at the left upper pole which require no additional imaging or follow-up. No solid renal masses are seen. . BLADDER: Moreau catheter is present in the bladder which is markedly distended up to the level of the umbilicus. Fluid stranding is present around the bladder in the space of Retzius significantly increased when compared to prior. GASTROINTESTINAL TRACT: The small and large bowel are unremarkable. The appendix is not seen but there is no evidence of appendicitis evidence of appendicitis. ABDOMINAL WALL: No significant hernia is appreciated. LYMPH NODES: No retroperitoneal lymphadenopathy. VASCULAR: Calcific atherosclerotic changes are present in the aorta and iliofemoral vessels. There is no evidence of an abdominal aortic aneurysm. PELVIC VISCERA: The prostate is markedly enlarged. Seminal vesicles are unremarkable. OSSEOUS STRUCTURES: Degenerative changes are present in the spine from L2 through S1. No bony destructive lesions. CT/CT abdomen pelvis w IV con IMPRESSION: 1. Markedly distended bladder with Moreau catheter in place. Fluid stranding around the bladder is significantly increased when compared to prior. 2. Cholelithiasis with choledocholithiasis. MRCP or ERCP may be of value 3. Other incidental findings as described above. Fleischner guidelines were followed.
[2023-12-27 09:50] VITALS: BP 158/102; PULSE 80
[2023-12-27 10:00] VITALS: BP 161/96; PULSE 84; RESP 16; TEMP 36.9; O2SAT 100; BMI 20.4
--- NOTE | 2023-12-27 10:03 | ED_ITS ---
HPI - General Adult General Chief complaint: Urogenital-Male Stated complaint: PT RIPPED CATH OUT,HAS PAIN PER EMS Time Seen by Provider: 12/27/23 09:46 Source: patient Mode of arrival: ambulatory Limitations: other (demetia ) History of Present Illness ED Provider: Richie EDMONDSON HPI narrative: 78-year-old male history of obstructive uropathy with chronic Ornelas in place, UTIs recurrent, dementia presenting from group home facility for concerns that patient ripped out his Ornelas catheter while he was agitated, the Ornelas catheter did have an inflated balloon with 30 cc of saline. According to nursing from the facility and report from EMS after he pulled it out he has been having slight hematuria. Patient states he has fine he's not complaining of anything at this time however he is a poor historian. He is only oriented to person, not place time or situation. Difficult to obtain a review of system on this patient as he is confused. Related Data Home Medications ?Medication ?Instructions ?Recorded ?Confirmed apixaban 2.5 mg tablet (Eliquis) 2.5 mg PO BID 08/03/22 09/19/23 cyanocobalamin (vitamin B-12) 1,000 mcg PO DAILY 08/03/22 09/19/23 1,000 mcg tablet famotidine 20 mg tablet 20 mg PO BID 08/03/22 09/19/23 finasteride 5 mg tablet 5 mg PO DAILY 08/03/22 09/19/23 mirtazapine 15 mg tablet 15 mg PO DAILY 08/03/22 09/19/23 acetaminophen 325 mg tablet 650 mg PO Q6H PRN Fever Or Pain 02/18/23 09/19/23 (Tylenol) bisacodyl 10 mg rectal suppository 10 mg PA DAILY PRN Constipation 02/18/23 09/19/23 magnesium hydroxide 400 mg/5 mL 30 ml PO DAILY PRN Constipation 02/18/23 09/19/23 oral suspension (Milk of Magnesia) sennosides 8.6 mg-docusate sodium 2 tab-cap PO BID 02/18/23 09/19/23 50 mg tablet (Senna with Docusate Sodium) sodium phosphates 19 gram-7 118 ml PA DAILY PRN Constipation 02/18/23 09/19/23 gram/118 mL enema (Fleet Enema) diltiazem HCl 120 mg 120 mg PO DAILY 06/13/23 09/19/23 capsule,extended release 12 hr ascorbic acid (vitamin C) 500 mg 500 mg PO BID 09/19/23 09/19/23 tablet (Vitamin C) valacyclovir 1 gram tablet 1,000 mg PO Q12H shingles 09/19/23 09/19/23 Previous Rx's ?Medication ?Instructions ?Recorded cefuroxime axetil 500 mg tablet 500 mg PO BID #22 tabs 09/23/23 linezolid 600 mg tablet 600 mg PO Q12H #22 tabs 09/23/23 cefuroxime axetil 250 mg tablet 250 mg PO BID 7 days #14 tabs 12/27/23 Allergies Allergy/AdvReac Type Severity Reaction Status Date / Time No Known Allergies Allergy Verified 12/27/23 10:00 Review of Systems 2 Review of Systems: Yes Unobtainable due to mental status PMFSH Past Medical History Attestation statement: The following information was validated with the patient. Source: old records reviewed and nursing notes reviewed Medical History Chronic indwelling Ornelas catheter GERD (gastroesophageal reflux disease) HTN (hypertension) MRSA bacteremia Dementia BPH (benign prostatic hyperplasia) Hx of fci use of blood thinners Atrial fibrillation Dementia Social History Social History Household Members: Other Housing: Long-Term Do you presently have visiting nurse or other home services: Yes ([facility]) Unable to assess alcohol history related to: Unable to respond Alcohol intake: never Comment: 1:2 sitter in room Patient Tobacco Use Status: Tobacco use Unknown Second Hand Smoke Exposure: No Advance Directives Date on File: 06/14/23 service: No Current occupational status: disabled Physical Exam ED Vital Signs: Vital Signs - 24 hr 12/27/23 10:00 Temperature 98.4 F Pulse Rate 84 Respiratory Rate 16 Blood Pressure 161/96 H Pulse Oximetry 100 Oxygen Delivery Method Room Air BMI result Body Mass Index 20.4 vss Appearance: Alert.? Oriented to person not place time or situation.? No acute distress.? Head: Normocephalic, atraumatic, no step-offs or deformities Eyes: Pupils equal, round and reactive to light.? ENT: Pharynx normal.? Neck: Normal inspection.? Neck supple.? CVS: Normal heart rate and rhythm.? Pulses normal.? Respiratory: No respiratory distress.? Breath sounds normal.? Abdomen: Soft and nontender.? Skin: Skin warm and dry.? Normal skin color.? Normal skin turgor.? Extremities: No lower extremity edema.? No calf ttp. Global weakness. Neuro: Oriented to person not place time or situation Course Reevaluation(s) Reevaluation #1: patient w/ urinary retention >1000 likley why he is having abd pain. Imaging & labs pending. Diffiucult ornelas Dr. Gonzalez called to do the ornelas. Time: 12:07 Reevaluation #2: Dr. Gonzalez Urology at bedside who placed ornelas catheter. No complications but it was difficult to get had to use guidewire. Time: 12:45 Reevaluation #3: 1253- Ceftriaxone ordered for possible UTI 1323- Patient with a white count and shift. Chemistry slight olga when compared to baseline. Time: 13:23 Additional Reevaluation(s): 1539- Surgery recommends speaking to GI about this case. 1610 overhead page for GI pending call back for abnormal ct read ( i do not personally suspect choledocolithiasis) sign out to Annalee EDMONDSON Medications Administered Discontinued Medications Generic Name Dose Route Start Last Admin Trade Name Freq PRN Reason Stop Dose Admin Ceftriaxone Sodium 1 gm/ 50 mls @ 100 mls/hr 12/27/23 12:53 12/27/23 15:29 Sodium Chloride IV 12/27/23 13:22 Infused ONCE ONE Infusion Sodium Chloride 500 mls @ 500 mls/hr 12/27/23 13:30 12/27/23 15:29 Ns IV 12/27/23 14:29 Infused .Q1H CHRISS Infusion Iohexol 100 ml 12/27/23 13:14 12/27/23 13:14 Iohexol 350 Mg/Ml 100 Ml Infus..Btl IV 12/27/23 13:15 85 ml ONCE ONE Administration Lidocaine HCl 10 ml 12/27/23 10:36 12/27/23 11:01 Lidocaine Hcl 2 % Urojet 10 Ml Jel.Pf.Fara TOPICAL 12/27/23 10:37 10 ml ONCE ONE Administration Lidocaine HCl 10 ml 12/27/23 10:37 12/27/23 13:51 Lidocaine Hcl 2 % Urojet 10 Ml Jel.Pf.Fara TOPICAL 12/27/23 10:38 10 ml ONCE ONE Administration Morphine Sulfate 2 mg 12/27/23 12:02 12/27/23 12:06 Morphine Sulfate 2 Mg/Ml Cartridge IVPUSH 12/27/23 12:03 2 mg ONCE ONE Administration Protocol Olanzapine 5 mg 12/27/23 11:11 12/27/23 11:31 Olanzapine 5 Mg Tablet PO 12/27/23 11:12 5 mg ONCE ONE Administration Medical Decision Making Medical Decision Making [facility] Narrative: 1016 78-year-old male presents with hematuria status post pulling out his Ornelas catheter earlier today. He has a chronic Ornelas in place in his coming from group home facility On exam patient does have diffuse abdominal tenderness. Patient appears well however no acute distress History and physical exam concerning for pain likely secondary to mechanical trauma of Ornelas catheter getting ripped out. Hematuria likely secondary to trauma. Unlikely obstructing uropathy, kidney stones, pyelonephritis, acute abdomen, obstruction, appendicitis, cholecystitis, diverticulitis or pancreatitis. Will rule out UTI and metabolic derangement Plan labs, urine, imaging Differential Diagnosis Differential Diagnoses: The differential diagnosis associated with the presentation includes History and physical exam concerning for pain likely secondary to mechanical trauma of Ornelas catheter getting ripped out. Hematuria likely secondary to trauma. Unlikely obstructing uropathy, kidney stones, pyelonephritis, acute abdomen, obstruction, appendicitis, cholecystitis, diverticulitis or pancreatitis. Will rule out UTI and metabolic derangement Admission/Observation Consideration of admission/observation: Escalation of care including admission/observation considered possible Lab Data [facility] Lab Attestation statement: I reviewed the patient's lab results. 12/27/23 12:08 12/27/23 12:08 Labs: Lab Results 12/27/23 12/27/23 12/27/23 Range/Units 12:08 13:46 14:17 WBC 13.3 H (4.8-10.8) X10*3/uL RBC 4.10 L (4.60-5.80) X10*6/uL Hgb 12.5 L (14.0-18.0) g/dl Hct 37.3 L (42.0-52.0) % MCV 91.0 (80.0-98.0) fL MCH 30.5 (27.0-33.0) pg MCHC 33.5 (31.0-36.0) g/dl RDW 13.8 (11.0-16.0) % Plt Count 310 (160-400) X10*3/uL MPV 10.2 (9.4-12.4) fL Immature Gran % (Auto) 0.3 (0.0-0.4) % Neut % (Auto) 82.0 H (45-73) % Lymph % (Auto) 11.0 L (20-40) % [place] % (Auto) 6.2 (2-11) % Eos % (Auto) 0.1 (0-4) % Baso % (Auto) 0.4 (0-2) % Lymph # (Auto) 1.5 (1.2-4.9) X10*3/uL [place] # (Auto) 0.8 (0.1-1.2) X10*3/uL Eos # (Auto) 0.0 (0.0-0.4) X10*3/uL Baso # (Auto) 0.1 (0.0-0.2) X10*3/uL Abs Immat Gran (auto) 0.04 H (0.00-0.03) X10*3/uL Absolute Neuts (auto) 10.9 H (2.0-8.3) x10*3/uL Absolute Nucleated RBC 0.000 (0.0-0.012) X10*3/uL Nucleated RBC % (auto) 0.0 (0.0-0.2) /100WBC Sodium 141 (135-145) mmol/L Potassium 4.3 D (3.3-5.1) mmol/L Chloride 110 H (96-108) mmol/L Carbon Dioxide 16 L (22-29) mmol/L Anion Gap 19 (12-20) BUN 21 H (9-16) mg/dL Creatinine 1.36 (0.5-1.4) mg/dL Estim Creat Clear Calc 33.0 Estimated GFR 51 Random Glucose 106 (60-115) mg/dL Lactic Acid 1.1 (0.5-2.0) mmol/L Calcium 9.5 D (8.4-10.2) mg/dL Total Bilirubin 0.5 (0.0-1.0) mg/dL AST 26 (5-37) U/L ALT 16 (0-40) U/L Alkaline Phosphatase 82 (39-117) U/L Total Protein 7.5 (6.5-8.0) g/dL Albumin 3.8 (3.5-5.0) g/dL Urine Color Yellow Urine Appearance Clear Urine pH 6.5 (5.0-9.0) Ur Specific [place] 1.015 (1.005-1.025) Urine Protein 300 (3+) H (Neg-Trace) mg/dL Urine Glucose (UA) Negative (Negative) mg/dL Urine Ketones Negative (Negative) mg/dL Urine Blood Large (3+) H (Negative) Urine Nitrite Negative (Negative) Ur Leukocyte Esterase Trace H (Negative) Urine RBC >20 H (0-2) /HPF Urine WBC 21-50 H (0-5) /HPF Ur Squamous Epith Cells 3-5 (0-2) /HPF Urine Bacteria None Seen (None Seen) Hyaline Casts 0-2 (0-2) /LPF Independent Interpretation I performed an independent interpretation of an: CT Scan Radiology Impression Discussion of test interpretation with radiology: I have reviewed the radiologist's reading. Chronic Conditions Patient?s care impacted by: Other (dementia, uti ) Critical Care Time Critical Care Time Critical Care Time: Yes Total Critical Care Time: 35 Attestation: I attest to this time spent taking care of the patient, obtaining history, physical, reviewing labs, imaging, speaking to my attending, specialist or hospitalist. Discharge Plan Discharge Clinical Impression: UTI (urinary tract infection) due to urinary indwelling Ornelas catheter, Acute urinary retention, Cholelithiasis Patient Disposition: Home, Self-Care Instructions: Urinary Tract Infection in Men (ED), Urinary Tract Infection in Men (DC) Additional Instructions: Take your medications as prescribed. If you were prescribed antibiotics today, it is important that you take your medication to their entirety, do not skip any doses, do not finish them early. Follow-up with your primary care provider this week. Return to the emergency department with new or worsening symptoms. Such as fevers, chills, chest pain, shortness of breath, nausea, vomiting, dizziness, headache, vision changes, lethargy In case of emergency call 911 Prescriptions: New cefuroxime axetil 250 mg tablet 250 mg PO BID 7 Days Qty: 14 0RF No Action cyanocobalamin (vitamin B-12) 1,000 mcg Tablet 1,000 mcg PO DAILY famotidine 20 mg Tablet 20 mg PO BID mirtazapine 15 mg Tablet 15 mg PO DAILY finasteride 5 mg Tablet 5 mg PO DAILY Eliquis 2.5 mg Tablet 2.5 mg PO BID acetaminophen [Tylenol] 325 mg Tablet 650 mg PO Q6H PRN (Reason: Fever Or Pain) Rx Instructions: DO NOT EXCEED 3 G IN 24 HRS sennosides-docusate sodium [Senna with Docusate Sodium] 8.6-50 mg Tablet 2 tab-cap PO BID magnesium hydroxide [Milk of Magnesia] 400 mg/5 mL Suspension 30 ml PO DAILY PRN (Reason: Constipation) bisacodyl 10 mg Suppository 10 mg PA DAILY PRN (Reason: Constipation) Fleet Enema 19-7 gram/118 mL Enema 118 ml PA DAILY PRN (Reason: Constipation) valacyclovir 1 gram tablet 1,000 mg PO Q12H Rx Instructions: for 10 days End date: 09/23/2023 ascorbic acid (vitamin C) [Vitamin C] 500 mg Tablet 500 mg PO BID linezolid 600 mg Tablet 600 mg PO Q12H Qty: 22 0RF Rx Instructions: end date for linezolid 10/04/23 cefuroxime axetil 500 mg tablet 500 mg PO BID Qty: 22 0RF Rx Instructions: end date for ceftin use 10/04/23 diltiazem HCl 120 mg capsule,extended release 12 hr 120 mg PO DAILY Referrals: [facility] [Provider Group] - 1 day Rajesh Son MD [Primary Care Provider] - 1 day Stand Alone Forms: Work/School Release Print Language: German
[2023-12-27] MEDS: Lidocaine HCl 2 % Urojet 10 ML JEL.PF.APP TOPICAL ×2 (11:01→13:51)
[2023-12-27] MEDS: OLANZapine 5 MG TABLET PO (11:31)
--- NOTE | 2023-12-27 11:33 | PC.NURSE ---
this nurse assumed care of pt at 1100, pt clearly aggitated, this nurse received report that ornelas placement was unsuccessful in Dept and requires urology intervention. pt observed getting out of bed, attempting to ambulate. pt is a high fall risk sitter placed for safety. 5mg olanzapine given.
[2023-12-27] MEDS: Morphine Sulfate 2 MG/ML CARTRIDGE IVPUSH (12:06)
[2023-12-27 12:13] LABS: MANUAL DIFF FLAG NO
--- NOTE | 2023-12-27 12:15 | PC.NURSE ---
pt bladder scanned, over 934mls present- this nurse attempted 1 more straight cath and was unsuccessful. pt medicated per MAR for pain and anxiety, sitter remains in place
[2023-12-27 12:17] LABS: Basophils Absolute Auto 0.1 X10*3/uL (0.0-0.2); Basophils Percent Auto 0.4 % (0-2); Eosinophils Percent Auto 0.1 % (0-4); Hematocrit 37.3 % (42.0-52.0); Hemoglobin 12.5 g/dl (14.0-18.0); Imm Gran Abs Auto 0.04 X10*3/uL (0.00-0.03); Imm Gran Pct Auto 0.3 % (0.0-0.4); Lymphocytes Absolute Auto 1.5 X10*3/uL (1.2-4.9); Mean Corpuscular HGB Conc 33.5 g/dl (31.0-36.0); Mean Corpuscular Hemoglobin 30.5 pg (27.0-33.0); Mean Platelet Volume 10.2 fL (9.4-12.4); Monocytes Absolute Auto 0.8 X10*3/uL (0.1-1.2); Monocytes Percent Auto 6.2 % (2-11); Neutrophils Absolute Auto 10.9 x10*3/uL (2.0-8.3); Platelet Count 310 X10*3/uL (160-400); Red Cell Distribution Width 13.8 % (11.0-16.0); White Blood Count 13.3 X10*3/uL (4.8-10.8)
[2023-12-27 12:36] LABS: Alanine Aminotransferase 16 U/L (0-40); Albumin Level 3.8 g/dL (3.5-5.0); Alkaline Phosphatase 82 U/L (39-117); Anion Gap 19 (12-20); Aspartate Amino Transferase 26 U/L (5-37); Bilirubin Total 0.5 mg/dL (0.0-1.0); Blood Urea Nitrogen 21 mg/dL (9-16); Calcium 9.5 mg/dL (8.4-10.2); Carbon Dioxide 16 mmol/L (22-29); Chloride 110 mmol/L (96-108); Estimated Glomerular Filt Rate 51; Glucose Random 106 mg/dL (60-115); Potassium 4.3 mmol/L (3.3-5.1); Sodium 141 mmol/L (135-145); Total Protein 7.5 g/dL (6.5-8.0)
--- NOTE | 2023-12-27 13:07 | PM.UROCN ---
History of Present Illness Consult details Consult date: 12/27/23 Narrative: CC: Urinary retention/nursing unable to place Moreau catheter HPI: Presentation to hospital from retirement facility with indwelling Moreau catheter. Patient apparently removed catheter at facility. Catheter has been in place for extended period of time Nursing staff have tried to place Moreau multiple times Lubrication placed per urethra. Glidewire placed down meatus and advanced into bladder. Attempt pass 16 Mongolian Zuni tip catheter. Unable to advance past junction between interim posterior urethra. Urethral dilator set obtained. Eight Mongolian dilator placed over Glidewire. Glidewire removed. Metal wire placed. Urethral dilatation performed up to 18 Mongolian. Tightness noted a junction between anterior and posterior urethra. At 18 Mongolian a 16 Mongolian Zuni tip catheter was able to be passed and inflated in the bladder. Wire removed. Bladder emptied. Patient follow-up as outpatient for discussion regarding suprapubic tube placement Urethral Dilation with sounds - CPT 38456 Difficult Moreau Placement CPT 33786 Review of Systems Constitutional: Constitutional: Reports as per HPI and Reports no additional constitutional complaints Cardiovascular: Cardiovascular: Reports as per HPI and Reports no additional cardiovascular complaints Respiratory: Respiratory: Reports as per HPI and Reports no additional respiratory complaints Gastrointestinal: Gastrointestinal: Reports as per HPI and Reports no additional gastrointestinal complaints Genitourinary: Genitourinary: Reports as per HPI Musculoskeletal: Musculoskeletal: Reports no additional musculoskeletal complaints and Reports as per HPI Neurologic: Reports system reviewed and no additional complaints, except as documented and Reports as per HPI [facility] Past Medical History Medical History Chronic indwelling Moreau catheter GERD (gastroesophageal reflux disease) HTN (hypertension) MRSA bacteremia Dementia BPH (benign prostatic hyperplasia) 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 Atrial fibrillation Dementia Social History Social History Household Members: Other Housing: [facility] Do you presently have visiting nurse or other home services: Yes ([facility]) Unable to assess alcohol history related to: Unable to respond Alcohol intake: never Comment: 1:2 sitter in room Patient Tobacco Use Status: Tobacco use Unknown Second Hand Smoke Exposure: No Advance Directives Date on File: 06/14/23 service: No Current occupational status: disabled Meds Allergies Allergy/AdvReac Type Severity Reaction Status Date / Time No Known Allergies Allergy Verified 12/27/23 10:00 Active Medications: Current Medications Ceftriaxone Sodium 1 gm/ (Sodium Chloride) 50 mls @ 100 mls/hr IV ONCE ONE Stop: 12/27/23 13:22 Home Medications ?Medication ?Instructions ?Recorded ?Confirmed ?Last Taken ?Type apixaban 2.5 mg tablet (Eliquis) 2.5 mg PO BID 08/03/22 09/19/23 Unknown History cyanocobalamin (vitamin B-12) 1,000 mcg PO DAILY 08/03/22 09/19/23 Unknown History 1,000 mcg tablet famotidine 20 mg tablet 20 mg PO BID 08/03/22 09/19/23 Unknown History finasteride 5 mg tablet 5 mg PO DAILY 08/03/22 09/19/23 Unknown History mirtazapine 15 mg tablet 15 mg PO DAILY 08/03/22 09/19/23 Unknown History acetaminophen 325 mg tablet 650 mg PO Q6H PRN Fever Or Pain 02/18/23 09/19/23 Unknown History (Tylenol) bisacodyl 10 mg rectal suppository 10 mg GA DAILY PRN Constipation 02/18/23 09/19/23 Unknown History magnesium hydroxide 400 mg/5 mL 30 ml PO DAILY PRN Constipation 02/18/23 09/19/23 Unknown History oral suspension (Milk of Magnesia) sennosides 8.6 mg-docusate sodium 2 tab-cap PO BID 02/18/23 09/19/23 Unknown History 50 mg tablet (Senna with Docusate Sodium) sodium phosphates 19 gram-7 118 ml GA DAILY PRN Constipation 02/18/23 09/19/23 Unknown History gram/118 mL enema (Fleet Enema) diltiazem HCl 120 mg 120 mg PO DAILY 06/13/23 09/19/23 Unknown History capsule,extended release 12 hr ascorbic acid (vitamin C) 500 mg 500 mg PO BID 09/19/23 09/19/23 Unknown History tablet (Vitamin C) valacyclovir 1 gram tablet 1,000 mg PO Q12H shingles 09/19/23 09/19/23 Unknown History Physical Exam Vital Signs: Vital Signs: Last Vital Signs Temp 98.4 F 12/27/23 10:00 Pulse 84 12/27/23 10:00 Resp 16 12/27/23 10:00 BP 161/96 H 12/27/23 10:00 Pulse Ox 100 12/27/23 10:00 O2 Del Method Room Air 12/27/23 10:00 BMI result Body Mass Index 20.4 Const: General: cooperative, healthy appearing, comfortable and no acute distress Orientation/consciousness: patient oriented x3 HEENT: Face and sinus: Yes normal facial exam Mouth: moist mucous membranes Neck: Neck: Yes normal visual inspection, Yes full ROM and Yes trachea midline Chest: Chest palpation & inspection: normal inspection of the chest Resp: Effort & Inspection: normal respiratory effort, able to speak in complete sentences and no respiratory distress GI: Inspection: Yes normal to inspection Back/Spine/Pelvis: Cervical Spine: normal cervical lordosis Thoracic/Lumbar Spine: thoracic and lumbar spine normal to inspection Skin: General skin exam: no rashes or lesions noted Neuro: General: patient oriented x3, tone normal and moves all extremities Extrem: General: Yes normal to inspection and Yes capillary refill normal Results Labs 12/27/23 12:08 12/27/23 12:08 Labs: Abnormal lab results 12/27/23 Range/Units 12:08 WBC 13.3 H (4.8-10.8) X10*3/uL RBC 4.10 L (4.60-5.80) X10*6/uL Hgb 12.5 L (14.0-18.0) g/dl Hct 37.3 L (42.0-52.0) % Neut % (Auto) 82.0 H (45-73) % Lymph % (Auto) 11.0 L (20-40) % Abs Immat Gran (auto) 0.04 H (0.00-0.03) X10*3/uL Absolute Neuts (auto) 10.9 H (2.0-8.3) x10*3/uL Chloride 110 H (96-108) mmol/L Carbon Dioxide 16 L (22-29) mmol/L BUN 21 H (9-16) mg/dL Short CBC 12/27/23 Range/Units 12:08 WBC 13.3 H (4.8-10.8) X10*3/uL Hgb 12.5 L (14.0-18.0) g/dl Hct 37.3 L (42.0-52.0) % Plt Count 310 (160-400) X10*3/uL BMP 12/27/23 12:08 Sodium 141 Potassium 4.3 D Chloride 110 H Carbon Dioxide 16 L BUN 21 H Creatinine 1.36 Calcium 9.5 D Liver Function 12/27/23 Range/Units 12:08 Total Bilirubin 0.5 (0.0-1.0) mg/dL AST 26 (5-37) U/L ALT 16 (0-40) U/L Alkaline Phosphatase 82 (39-117) U/L Albumin 3.8 (3.5-5.0) g/dL All other labs normal. Assessment and Plan (1) UTI (urinary tract infection) due to urinary indwelling Moreau catheter: Status: Acute (2) Urethral stricture: Status: Acute Plan Difficult Moreau catheter placement. Urethral dilatation performed. Sixteen Mongolian Zuni tip catheter left in place. Patient can follow-up with office for discussion regarding suprapubic tube placement Procedures Date of Service Date of Service: 12/27/23
[2023-12-27] MEDS: iohexoL 350 MG/ML 100 ML INFUS..BTL IV (13:14)
[2023-12-27 13:55] LABS: Appearance Urine Clear; Color Urine Yellow; Glucose Urine UA Negative (Negative); Leukocyte Esterase Urine Trace (Negative); Nitrite Urine Negative (Negative); PH 6.5 (5.0-9.0); Specific Gravity - Urine 1.015 (1.005-1.025); UMIC TRIGGER UACC YES; Urine Blood Large (3+) (Negative); Urine Ketones Negative (Negative); Urine Protein 300 (3+) mg/dL (Neg-Trace)
[2023-12-27 14:05] LABS: Bacteria Urine None Seen (None Seen); Hyaline Casts Urine 0-2 /LPF (0-2); RBC Urine >20 /HPF (0-2); UACC Culture Trigger YES; WBC Urine 21-50 /HPF (0-5)
[2023-12-27] MEDS: 0.9 % Sodium Chloride 500 ML IV (14:15)
[2023-12-27] MEDS: cefTRIAXone sodium 1 GM in 0.9 % Sodium Chloride 50 ML IV (14:24)
--- NOTE | 2023-12-27 14:33 | PC.NURSE ---
re: lab draw and abx admin. lab and fluids delayed d/y urology being at bedside placing ornelas catheter, and pt aggitation. once procedure was performed pt was calm and cooperative with lab draws- lactic cultures obtained rocephin 1gm administered 500ml NS infusing per order
[2023-12-27 14:40] LABS: Lactic Acid 1.1 mmol/L (0.5-2.0)
[2023-12-27 18:05] VITALS: BP 161/96; PULSE 84; RESP 16; TEMP 36.9; O2SAT 100
--- NOTE | 2023-12-27 18:05 | PC.NURSE ---
pt presents to ED from [facility] longterm, pt with underlying hx of demnentia, and long standing hx of indewlling ornelas. Per EMS pt removed 16Fr 30cc baloon ornelas while at facility. Pt reports 4/10 pain. Multiple attempts were made to replace ornelas, by nursing as well as SUKI. MD Gonzalez was notified of case. Pt became more aggitatated attempting to get up from bed, pt was bladder scanned and was found to have over 934mls. pt was medicated for aggitation and pain with zyprexa 5mg po and 2mg MSo4 IVP. MD Gonzalez was able to successfully place 16fr ornelas with the use of urethral dialators. 2400Mls of urine were drained from drain bag following insertion, UA sent. Pt rec 500mls NS as well as 1gm rocephin. Pr MD Gonzalez Pt should have outpatient follow up for SPC placement. Pt will continue on ceftin PO at facility. attempted to contact [facility] to advise of plan of care, no answer x2. pt transferred back to [facility] via matt [facility].
== END 2023-12-27 18:06 | disposition home or self-care (01) ==
PROVIDERS: Physician Assistant; Emergency Provider Emergency Medicine; PCP Family Medicine
DX: N35.919 Unspecified urethral stricture, male, unspecified site (principal); N39.0 Urinary tract infection, site not specified; R10.2 Pelvic and perineal pain; R33.9 Retention of urine, unspecified; R11.0 Nausea; Z79.899 Other long term (current) drug therapy
CPT/HCPCS: 36415; 51702; 74177; 80053; 81001; 83605; 85025; 87040; 87086; 87088; 87186; 96361; 96374; 96375; 99284; J0696; J2270; Q9967

== ENCOUNTER → 2023-12-27 10:36 | Outpatient (BNV) | payer MEDICARE, MEDICAID, SELFPAY | PROVIDERS: Emergency Provider Emergency Medicine; PCP Family Medicine; Visit Provider Urology | DX: T83.511A Infection and inflammatory reaction due to indwelling urethral catheter, initial encounter (principal); N39.0 Urinary tract infection, site not specified; N35.919 Unspecified urethral stricture, male, unspecified site | CPT/HCPCS: 99284 ==

== ENCOUNTER 2024-01-03 07:02 | Outpatient (REF) | payer MEDICARE, MEDICAID, SELFPAY ==
[2024-01-03 06:16] LABS: MANUAL DIFF FLAG NO
[2024-01-03 07:19] LABS: Basophils Absolute Auto 0.1 X10*3/uL (0.0-0.2); Basophils Percent Auto 0.7 % (0-2); Eosinophils Absolute Auto 0.7 X10*3/uL (0.0-0.4); Eosinophils Percent Auto 8.3 % (0-4); Hematocrit 33.2 % (42.0-52.0); Imm Gran Abs Auto 0.04 X10*3/uL (0.00-0.03); Imm Gran Pct Auto 0.5 % (0.0-0.4); Lymphocytes Absolute Auto 2.4 X10*3/uL (1.2-4.9); Lymphocytes Percent Auto 28.8 % (20-40); Mean Corpuscular HGB Conc 33.1 g/dl (31.0-36.0); Mean Corpuscular Volume 93.5 fL (80.0-98.0); Mean Platelet Volume 10.3 fL (9.4-12.4); Monocytes Absolute Auto 0.6 X10*3/uL (0.1-1.2); Monocytes Percent Auto 7.1 % (2-11); Neutrophils Absolute Auto 4.6 x10*3/uL (2.0-8.3); Neutrophils Percent Auto 54.6 % (45-73); Platelet Count 315 X10*3/uL (160-400); Red Blood Count 3.55 X10*6/uL (4.60-5.80); Red Cell Distribution Width 13.4 % (11.0-16.0); White Blood Count 8.4 X10*3/uL (4.8-10.8)
[2024-01-03 07:45] LABS: Anion Gap 13 (12-20); Blood Urea Nitrogen 20 mg/dL (9-16); Carbon Dioxide 22 mmol/L (22-29); Chloride 112 mmol/L (96-108); Estimated Glomerular Filt Rate > 60; Glucose Random 83 mg/dL (60-115); Potassium 3.3 mmol/L (3.3-5.1); Sodium 144 mmol/L (135-145)
== END 2024-01-03 07:03 | disposition home or self-care (01) ==
LOC: HO.MMNH3L 07:02
PROVIDERS: Visit Provider Family Medicine
DX: G93.41 Metabolic encephalopathy (principal); N39.0 Urinary tract infection, site not specified; F41.8 Other specified anxiety disorders
CPT/HCPCS: 36415; 80048; 85025

== ENCOUNTER 2024-01-25 09:00 | Outpatient (AMB) | payer MEDICARE, MEDICAID, SELFPAY ==
--- NOTE | 2024-01-25 09:26 | A.OFFVIS_ITS ---
Intake Visit Reasons: discussion of supra-pubic tube placement Intake Note: Patient is present for DISCUSSION OF SUPRA-PUBIC TUBE REPLACEMENT Urology Medication:FINASTERIDE,VITAMIN b-12 Antibiotic Allergy:NONE Blood Thinner:ELIQUIS Automotive Mechanic Required: No Allergies No Known Allergies Allergy (Verified 03/30/24 12:54) HPI Comments Details: Oscar is a pleasant male. Resident of custodial facility. 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 Polyosteoarthritis Metabolic encephalopathy Depression Anxiety Mood disturbance Vitamin B deficiency Chronic indwelling Moreau catheter GERD (gastroesophageal reflux disease) HTN (hypertension) MRSA bacteremia BPH (benign prostatic hyperplasia) 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 Atrial fibrillation Dementia Social History Household Members: Other Housing: [facility] Are you a primary wound care center consultant to a significant other at home: No Do you presently have visiting nurse or other home services: No Unable to assess alcohol history related to: Unable to respond Alcohol intake: never Comment: 1:2 sitter in room Patient Tobacco Use Status: Tobacco use Unknown Second Hand Smoke Exposure: No Advance Directives Date on File: 06/14/23 service: No Current occupational status: disabled Review of Systems Const Denies chills and Denies fever(s) Card Reports no additional complaints and Denies syncope Resp Denies cough GI Denies abdominal pain and Denies heartburn Reports as per HPI and Denies change in libido Neuro Denies syncope Psych Denies change in libido Endo Denies change in libido Physical Exam Const General: cooperative, healthy appearing, comfortable and no acute distress Orientation/consciousness: patient oriented x3 HEENT Face and sinus: Yes normal facial exam Mouth: moist mucous membranes Neck Neck: Yes normal visual inspection, Yes full ROM and Yes trachea midline Chest Chest palpation & inspection: normal inspection of the chest Resp Effort & Inspection: normal respiratory effort, able to speak in complete sentences and no respiratory distress GI Inspection: Yes normal to inspection Back/Spine/Pelvis Cervical Spine: normal cervical lordosis Thoracic/Lumbar Spine: thoracic and lumbar spine normal to inspection Skin General skin exam: no rashes or lesions noted Neuro General: patient oriented x3, gait normal, tone normal and moves all extremities Extrem General: Yes normal to inspection and Yes capillary refill normal Results AMB Urinalysis, Automated UA Leukoctes 500 Myla/uL Last Edit by JEREMÍAS Lemus on 01/25/24 09:39 UA Nitrite Positive Last Edit by JEREMÍAS Lemus on 01/25/24 09:39 UA Urobilinogen 0.2 mg/dL Last Edit by JEREMÍAS Lemus on 01/25/24 09:3 9 UA Protein 30 mg/dL Last Edit by JEREMÍAS Lemus on 01/25/24 09:39 UA pH 5.5 Last Edit by JEREMÍAS Lemus on 01/25/24 09:39 UA Blood 25 [place]/uL Last Edit by JEREMÍAS Lemus on 01/25/24 09:39 UA Specific [place] 1.020 Last Edit by JEREMÍAS Lemus on 01/25/24 09: 39 UA Ketone Negative Last Edit by JEREMÍAS Lemus on 01/25/24 09:39 UA Bilirubin 0 mg/dL Last Edit by JEREMÍAS Lemus on 01/25/24 09:39 UA Glucose 0 mg/dL Last Edit by JEREMÍAS Lemus on 01/25/24 09:39 Results Reviewed Results Reviewed: Laboratory Last Values Urine pH (Auto) 5.5 01/25/24 09:38 Specific [place] (Auto) 1.020 01/25/24 09:38 Urine Protein (Auto) 30 mg/dL 01/25/24 09:38 Glucose (UA)(Auto) 0 mg/dL 01/25/24 09:38 Urine Ketones (Auto) Negative 01/25/24 09:38 Urine Blood (Auto) 25 [place]/uL 01/25/24 09:38 Urine Nitrite (Auto) Positive 01/25/24 09:38 Urine Bilirubin (Auto) 0 mg/dL 01/25/24 09:38 Urine Urobilinogen (Auto) 0.2 mg/dL 01/25/24 09:38 Leukocyte Esterase (Auto) 500 Myla/uL 01/25/24 09:38 Assessment & Plan Assessment & Plan (1) Urethral stricture: Code(s): N35.919 - Unspecified urethral stricture, male, unspecified site Category: Medical Plan Risks, benefits and alternatives to therapy were discussed. These include but are not limited to infection, bleeding, damage to local organs and tissues, need for further interventions. Anesthetic risks regarding cardiac arrhythmia, blood clots, and potential mortality were discussed. The patient understands the typical recovery time and the outpatient nature of the procedure. After consideration of these risks the patient gives full informed consent and they wish to move ahead with the procedure. Cystoscopy with suprapubic tube placement Orders: Orders AMB Urinalysis Automated 01/25/24 Z13.9 - Encounter for screening, unspecified Patient Instructions: Imaging studies, laboratory and physical exam results were discussed and reviewed in detail. No major barriers to patient understanding were identified. An opportunity to ask questions regarding the treatment plan was provided. All questions were answered. The patient expressed understanding and agreement with the above treatment plan. The patient is aware they should contact our office by phone for worsening of their current condition or the appearance of new urologic symptoms. Compliance is encouraged with any medications and followup testing that is ordered. It is a privilege to participate in the urologic care of your patient. If you have any questions or concerns regarding treatment for the above conditions, or other urologic issues, please do not hesitate to contact me. The office telephone contact is [phone]. This note is constructed using voice recognition software. While every effort has been made to ensure accuracy wireless field technician errors may have been included. Yours sincerely, Dr Sunil Gonzalez MD, [facility] - Urology Providers of Expert, Compassionate Care for the Genitourinary System Coding Level of Care Code Est Pt Level 4 (63652) Diagnoses Urethral stricture N35.919
== END 2024-01-25 10:02 | disposition home or self-care (01) ==
LOC: HO.HUSH 09:00
PROVIDERS: PCP Family Medicine; Visit Provider Urology
DX: N35.919 Unspecified urethral stricture, male, unspecified site (principal)
CPT/HCPCS: 99214

== ENCOUNTER → 2024-01-25 09:00 | Outpatient (BNVA) | payer MEDICARE, MEDICAID, SELFPAY | PROVIDERS: PCP Family Medicine; Visit Provider Urology | DX: N35.919 Unspecified urethral stricture, male, unspecified site (principal); N31.9 Neuromuscular dysfunction of bladder, unspecified | CPT/HCPCS: 81003; 99212 ==

== ENCOUNTER 2024-02-07 06:06 | Outpatient (REF) | payer MEDICARE, MEDICAID, SELFPAY ==
[2024-02-07 06:02] LABS: MANUAL DIFF FLAG NO
[2024-02-07 06:38] LABS: Anion Gap 11 (12-20); Blood Urea Nitrogen 26 mg/dL (9-16); Calcium 8.3 mg/dL (8.4-10.2); Carbon Dioxide 24 mmol/L (22-29); Chloride 112 mmol/L (96-108); Estimated Glomerular Filt Rate > 60; Glucose Random 81 mg/dL (60-115); Potassium 3.7 mmol/L (3.3-5.1); Sodium 143 mmol/L (135-145)
[2024-02-07 07:07] LABS: Basophils Absolute Auto 0.1 X10*3/uL (0.0-0.2); Basophils Percent Auto 0.8 % (0-2); Eosinophils Absolute Auto 0.3 X10*3/uL (0.0-0.4); Eosinophils Percent Auto 5.5 % (0-4); Imm Gran Abs Auto 0.02 X10*3/uL (0.00-0.03); Imm Gran Pct Auto 0.3 % (0.0-0.4); Lymphocytes Absolute Auto 2.6 X10*3/uL (1.2-4.9); Lymphocytes Percent Auto 42.2 % (20-40); Mean Corpuscular HGB Conc 32.4 g/dl (31.0-36.0); Mean Corpuscular Hemoglobin 30.2 pg (27.0-33.0); Mean Platelet Volume 10.2 fL (9.4-12.4); Monocytes Absolute Auto 0.6 X10*3/uL (0.1-1.2); Monocytes Percent Auto 9.5 % (2-11); Neutrophils Absolute Auto 2.6 x10*3/uL (2.0-8.3); Neutrophils Percent Auto 41.7 % (45-73); Platelet Count 230 X10*3/uL (160-400); Red Blood Count 3.98 X10*6/uL (4.60-5.80); Red Cell Distribution Width 12.8 % (11.0-16.0); White Blood Count 6.2 X10*3/uL (4.8-10.8)
== END 2024-02-07 06:07 | disposition home or self-care (01) ==
LOC: HO.MMNH3L 06:06
PROVIDERS: Visit Provider Family Medicine
DX: G93.41 Metabolic encephalopathy (principal); F41.8 Other specified anxiety disorders; N39.0 Urinary tract infection, site not specified
CPT/HCPCS: 36415; 80048; 85025

== ENCOUNTER 2024-03-07 06:43 | Outpatient (REF) | payer MEDICARE, MEDICAID, SELFPAY ==
[2024-03-07 05:53] LABS: MANUAL DIFF FLAG NO
[2024-03-07 06:27] LABS: Basophils Absolute Auto 0.1 X10*3/uL (0.0-0.2); Basophils Percent Auto 0.7 % (0-2); Eosinophils Absolute Auto 0.3 X10*3/uL (0.0-0.4); Eosinophils Percent Auto 3.9 % (0-4); Hematocrit 39.6 % (42.0-52.0); Imm Gran Abs Auto 0.02 X10*3/uL (0.00-0.03); Imm Gran Pct Auto 0.3 % (0.0-0.4); Lymphocytes Absolute Auto 2.5 X10*3/uL (1.2-4.9); Mean Corpuscular HGB Conc 32.8 g/dl (31.0-36.0); Mean Corpuscular Hemoglobin 30.6 pg (27.0-33.0); Mean Corpuscular Volume 93.2 fL (80.0-98.0); Monocytes Absolute Auto 0.6 X10*3/uL (0.1-1.2); Monocytes Percent Auto 8.3 % (2-11); Neutrophils Absolute Auto 4.1 x10*3/uL (2.0-8.3); Neutrophils Percent Auto 53.8 % (45-73); Platelet Count 230 X10*3/uL (160-400); Red Blood Count 4.25 X10*6/uL (4.60-5.80); Red Cell Distribution Width 12.4 % (11.0-16.0); White Blood Count 7.5 X10*3/uL (4.8-10.8)
[2024-03-07 06:58] LABS: Anion Gap 12 (12-20); Blood Urea Nitrogen 27 mg/dL (9-16); Carbon Dioxide 25 mmol/L (22-29); Chloride 109 mmol/L (96-108); Estimated Glomerular Filt Rate > 60; Glucose Random 75 mg/dL (60-115); Potassium 4.1 mmol/L (3.3-5.1); Sodium 142 mmol/L (135-145)
== END 2024-03-07 06:44 | disposition home or self-care (01) ==
LOC: HO.MMNH3L 06:43
PROVIDERS: Visit Provider Hospitalist
DX: G93.41 Metabolic encephalopathy (principal); N39.0 Urinary tract infection, site not specified; F41.8 Other specified anxiety disorders
CPT/HCPCS: 36415; 80048; 85025

== ENCOUNTER 2024-03-30 12:23 | Emergency (ER) | payer MEDICARE, MEDICAID, SELFPAY ==
--- NOTE | 2024-03-30 12:34 | ED_ITS ---
HPI - General Adult General Chief complaint: Urogenital-Male Stated complaint: CLOGGED F/C FOR HOURS,FROM SNF PER EMS Time Seen by Provider: 03/30/24 12:33 Source: patient, EMS and RN notes reviewed Mode of arrival: EMS Limitations: altered mental status History of Present Illness ED Provider: armando HPI narrative: Patient is a 78-year-old male with history of BPH with obstruction, obstructive and reflux uropathy, dementia, AFib on Eliquis, MRSA bacteremia, hypertension, chronic indwelling Ornelas catheter presenting to the emergency department from senior living facility with report that Ornelas catheter has not been training for the past several hours. Patient complains of discomfort but is unable to specify where. When asked if he is having abdominal pain he states yes. Dolores ent also attempting to reach and pull at indwelling catheter. MD complaint: urinary retention Onset (ago): hour(s) Pain Consistency: constant Treatments prior to arrival: none Related Data Home Medications ?Medication ?Instructions ?Recorded ?Confirmed apixaban 2.5 mg tablet (Eliquis) 2.5 mg PO BID 08/03/22 03/17/24 cyanocobalamin (vitamin B-12) 1,000 mcg PO DAILY 08/03/22 03/17/24 1,000 mcg tablet famotidine 20 mg tablet 20 mg PO BID 08/03/22 03/17/24 finasteride 5 mg tablet 5 mg PO DAILY 08/03/22 03/17/24 acetaminophen 325 mg tablet 650 mg PO Q6H PRN Fever Or Pain 02/18/23 03/17/24 (Tylenol) bisacodyl 10 mg rectal suppository 10 mg IA DAILY PRN Constipation 02/18/23 03/17/24 magnesium hydroxide 400 mg/5 mL 30 ml PO DAILY PRN Constipation 02/18/23 03/17/24 oral suspension (Milk of Magnesia) sennosides 8.6 mg-docusate sodium 1 tab-cap PO BID 02/18/23 03/17/24 50 mg tablet (Senna with Docusate Sodium) sodium phosphates 19 gram-7 118 ml IA DAILY PRN Constipation 02/18/23 03/17/24 gram/118 mL enema (Fleet Enema) ascorbic acid (vitamin C) 500 mg 500 mg PO BID 09/19/23 03/17/24 tablet (Vitamin C) Lactobacillus acidophilus 03/17/24 (Acidophilus capsule) methenamine hippurate 1 gram tablet 1 g PO BID 03/17/24 03/17/24 mirtazapine 15 mg tablet (Remeron) 15 mg PO BEDTIME 03/17/24 03/17/24 trazodone 50 mg tablet 25 mg PO BEDTIME 03/17/24 03/17/24 Previous Rx's ?Medication ?Instructions ?Recorded cefuroxime axetil 500 mg tablet 500 mg PO BID #20 tabs 03/30/24 Allergies Allergy/AdvReac Type Severity Reaction Status Date / Time No Known Allergies Allergy Verified 03/30/24 12:54 Review of Systems Review of Systems: As per HPI Yes all other systems are reviewed and are negative [facility] Past Medical History Medical History (Updated 03/30/24 @ 14:57 by Christina Howe NP) History of rotator cuff syndrome Tricuspid regurgitation Multiple falls COVID-19 SIRS (systemic inflammatory response syndrome) 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 Polyosteoarthritis Metabolic encephalopathy Depression Anxiety Mood disturbance Vitamin B deficiency Chronic indwelling Ornelas catheter GERD (gastroesophageal reflux disease) HTN (hypertension) MRSA bacteremia BPH (benign prostatic hyperplasia) 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 Atrial fibrillation Dementia Social History Social History Household Members: Other Housing: [facility] Do you presently have visiting nurse or other home services: Yes (shelter) Unable to assess alcohol history related to: Unable to respond Alcohol intake: never Comment: 1:2 sitter in room Patient Tobacco Use Status: Tobacco use Unknown Smoked in Last 30 Days: No Second Hand Smoke Exposure: No Advance Directives: No Advance Directives Information Provided: Yes Advance Directives Date on File: 06/14/23 Do you have a plan to hurt others: No Plan service: No Current occupational status: disabled Physical Exam ED Vital Signs: Vital Signs - 24 hr 03/30/24 12:48 Temperature 98.0 F Pulse Rate 71 Respiratory Rate 18 Blood Pressure 107/65 Pulse Oximetry 99 Oxygen Delivery Method Room Air BMI result Body Mass Index 16.2 Vital signs have been reviewed and appear to be correct. Blood pressure normal. Heart rate normal. Respiratory rate normal. Temperature normal. Oxygen saturation normal. Const General: alert Nutritional Appearance: thin Orientation/consciousness: oriented to person Limitations: altered mental status and physical limitations HENMT Head: Yes normocephalic and Yes atraumatic Ears: hearing grossly normal bilaterally General nose exam: Normal external nose present Throat: Yes posterior oropharynx normal and Yes uvula midline Eyes Pupils: Equal, round and reactive pupils present Resp Effort & Inspection: normal respiratory effort Auscultation: clear to auscultation bilaterally Cardio Rate: regular rate Rhythm: regular rhythm Heart sounds: S1 normal heart sound present and S2 normal heart sound present GI Inspection: Yes normal to inspection Palpation (GI): Soft to palpation and Tenderness to palpation present (GI) suprapubicly Other: indwelling urinary catheter in place, not draining General: Yes no CVA tenderness Back/Spine/Pelvis Back: no CVA tenderness Skin General skin exam: no rashes or lesions noted Neuro General: oriented to person Cranial nerves: Yes Equal, round and reactive pupils present Medical Decision Making Medical Decision Making [facility] Narrative: Patient is a 78-year-old male with history of BPH with obstruction, obstructive and reflux uropathy, dementia, AFib on Eliquis, MRSA bacteremia, hypertension, chronic indwelling Ornelas catheter [facility] report that Ornelas catheter has not been training for the past several hours. On exam patient is awake, A+Ox1, VS WNL, afebrile, normal neurological exam without focal deficits, physical exam findings as above. Given reported symptoms and physical exam findings, initial differential includes clogged indwelling catheter, UTI. Initial bladder scan shows >800mLs. Attempted to remove ornelas but meeting resistance. Dr. Gonzalez notified, came to ED, removed ornelas and inserted new 16Fr catheter without difficulty, catheter draining well. Urinalysis notable for 3+ leukocytes, 3+ blood, 3+ bacteria. Will treat for UTI at this time, Dr. Gonzalez in agreement with this. Feel patient is stable for discharge back to facility, will d/c on cefuroxime. Follow up with PCP, return with any complications. Differential Diagnosis Differential Diagnoses: The differential diagnosis associated with the presentation includes As per [facility] Admission/Observation Consideration of admission/observation: Escalation of care including admission/observation considered Consult Healthcare Provider Management of the patient was discussed with: Director Medical Safety (Dr. Gonzalez, urology) Lab Data [facility] Lab Attestation statement: I reviewed the patient's lab results. As per [facility] Labs: Lab Results 03/30/24 Range/Units 13:07 Urine Color Yellow Urine Appearance Turbid Urine pH 7.5 (5.0-9.0) Ur Specific [place] >= 1.030 H (1.005-1.025) Urine Protein 100 (2+) H (Neg-Trace) mg/dL Urine Glucose (UA) Negative (Negative) mg/dL Urine Ketones Negative (Negative) mg/dL Urine Blood Large (3+) H (Negative) Urine Nitrite Negative (Negative) Ur Leukocyte Esterase Large (3+) H (Negative) Urine RBC 6-10 H (0-2) /HPF Urine WBC 11-20 (0-5) /HPF Ur Squamous Epith Cells 3-5 (0-2) /HPF Other Crystals Present Urine Bacteria 3+ (None Seen) Hyaline Casts 0-2 (0-2) /LPF External Record Review External record reviewed: Inpatient record, Office record and Outpatient record Prescription Management I considered prescription management with: Antibiotic Discharge Plan Discharge Clinical Impression: Acute UTI, Acute urinary retention Patient Disposition: [facility] Instructions: Urinary Tract Infection in Men (DC), Ornelas Catheter Placement and Care (ED) Additional Instructions: Joel was evaluated in the emergency department today for urinary catheter not draining. His indwelling catheter was removed and a new indwelling catheter was placed which is now draining correctly. He is being treated for a urinary tract with antibiotics, please complete the full course as prescribed. He should follow up with his primary care provider this week. He should also follow up with urology. He should return to the emergency department if his catheter bag is not draining urine, if he develops pain, fever 100.4? F or greater, vomiting or any other concerning symptoms. Prescriptions: New cefuroxime axetil 500 mg tablet 500 mg PO BID Qty: 20 0RF No Action cyanocobalamin (vitamin B-12) 1,000 mcg Tablet 1,000 mcg PO DAILY famotidine 20 mg Tablet 20 mg PO BID finasteride 5 mg Tablet 5 mg PO DAILY Eliquis 2.5 mg Tablet 2.5 mg PO BID acetaminophen [Tylenol] 325 mg Tablet 650 mg PO Q6H PRN (Reason: Fever Or Pain) Rx Instructions: DO NOT EXCEED 3 G IN 24 HRS sennosides-docusate sodium [Senna with Docusate Sodium] 8.6-50 mg Tablet 1 tab-cap PO BID magnesium hydroxide [Milk of Magnesia] 400 mg/5 mL Suspension 30 ml PO DAILY PRN (Reason: Constipation) bisacodyl 10 mg Suppository 10 mg IA DAILY PRN (Reason: Constipation) Fleet Enema 19-7 gram/118 mL Enema 118 ml IA DAILY PRN (Reason: Constipation) ascorbic acid (vitamin C) [Vitamin C] 500 mg Tablet 500 mg PO BID trazodone 50 mg Tablet 25 mg PO BEDTIME Acidophilus Capsule methenamine hippurate 1 gram Tablet 1 g PO BID mirtazapine [Remeron] 15 mg Tablet 15 mg PO BEDTIME Referrals: [facility] [Provider Group] Print Language: Georgian
[2024-03-30 12:43] VITALS: BP 118/84; PULSE 78; O2SAT 97
[2024-03-30 12:48] VITALS: BP 107/65; PULSE 71; RESP 18; TEMP 36.7; O2SAT 99; BMI 16.2
[2024-03-30 13:26] LABS: Appearance Urine Turbid; Color Urine Yellow; Glucose Urine UA Negative (Negative); Leukocyte Esterase Urine Large (3+) (Negative); Nitrite Urine Negative (Negative); PH 7.5 (5.0-9.0); Specific Gravity - Urine >= 1.030 (1.005-1.025); UMIC TRIGGER UACC YES; Urine Blood Large (3+) (Negative); Urine Ketones Negative (Negative); Urine Protein 100 (2+) mg/dL (Neg-Trace)
[2024-03-30 13:37] LABS: Bacteria Urine 3+ (None Seen); Hyaline Casts Urine 0-2 /LPF (0-2); Other Crystals Urine Present; UACC Culture Trigger YES
--- NOTE | 2024-03-30 13:41 | PC.NURSE ---
per pA verbal order attempted to remove ornelas cath. 10mls of urine removed from balloon. Unable to remove ornelas. Patient expressing pain, provider at bedside also unable to remove ornelas cath
--- NOTE | 2024-03-30 14:54 | P.CNUR_ITS ---
History of Present Illness Consult details Consult date: 03/30/24 Narrative: CC: Urinary retention/nursing unable to place Moreau catheter HPI: Patient within emergency room Indwelling Moreau catheter was removed. Had only partially inflated balloon. Moreau catheter placed by urologic staff member. Good efflux of urine. See nursing note for description of total output. Patient has chronic indwelling Moreau catheter in his known to Urology Difficult Moreau Placement CPT 50584 Review of Systems Constitutional: Constitutional: Denies chills and Denies fever(s) Cardiovascular: Cardiovascular: Reports no additional cardiovascular complaints and Denies syncope Respiratory: Respiratory: Denies cough Gastrointestinal: Gastrointestinal: Denies abdominal pain and Denies heartburn Genitourinary: Genitourinary: Reports as per HPI and Denies change in libido Neurologic: Denies syncope Psychiatric: Psychiatric: Denies change in libido Endocrine: Endocrine: Denies change in libido [facility] Past Medical History Medical History (Updated 03/17/24 @ 12:32 by Merline Huynh RN) History of rotator cuff syndrome Tricuspid regurgitation Multiple falls COVID-19 SIRS (systemic inflammatory response syndrome) 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 Polyosteoarthritis Metabolic encephalopathy Depression Anxiety Mood disturbance Vitamin B deficiency Chronic indwelling Moreau catheter GERD (gastroesophageal reflux disease) HTN (hypertension) MRSA bacteremia BPH (benign prostatic hyperplasia) 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 Atrial fibrillation Dementia Social History Social History Household Members: Other Housing: Custodial Do you presently have visiting nurse or other home services: Yes (care home) Unable to assess alcohol history related to: Unable to respond Alcohol intake: never Comment: 1:2 sitter in room Patient Tobacco Use Status: Tobacco use Unknown Smoked in Last 30 Days: No Second Hand Smoke Exposure: No Advance Directives: No Advance Directives Information Provided: Yes Advance Directives Date on File: 06/14/23 Do you have a plan to hurt others: No Plan service: No Current occupational status: disabled Meds Allergies Allergy/AdvReac Type Severity Reaction Status Date / Time No Known Allergies Allergy Verified 03/30/24 12:54 Home Medications ?Medication ?Instructions ?Recorded ?Confirmed ?Last Taken ?Type apixaban 2.5 mg tablet (Eliquis) 2.5 mg PO BID 08/03/22 03/17/24 Unknown History cyanocobalamin (vitamin B-12) 1,000 mcg PO DAILY 08/03/22 03/17/24 Unknown History 1,000 mcg tablet famotidine 20 mg tablet 20 mg PO BID 08/03/22 03/17/24 Unknown History finasteride 5 mg tablet 5 mg PO DAILY 08/03/22 03/17/24 Unknown History acetaminophen 325 mg tablet 650 mg PO Q6H PRN Fever Or Pain 02/18/23 03/17/24 Unknown History (Tylenol) bisacodyl 10 mg rectal suppository 10 mg AL DAILY PRN Constipation 02/18/23 03/17/24 Unknown History magnesium hydroxide 400 mg/5 mL 30 ml PO DAILY PRN Constipation 02/18/23 03/17/24 Unknown History oral suspension (Milk of Magnesia) sennosides 8.6 mg-docusate sodium 1 tab-cap PO BID 02/18/23 03/17/24 Unknown History 50 mg tablet (Senna with Docusate Sodium) sodium phosphates 19 gram-7 118 ml AL DAILY PRN Constipation 02/18/23 03/17/24 Unknown History gram/118 mL enema (Fleet Enema) ascorbic acid (vitamin C) 500 mg 500 mg PO BID 09/19/23 03/17/24 Unknown History tablet (Vitamin C) Lactobacillus acidophilus 03/17/24 Unknown History (Acidophilus capsule) methenamine hippurate 1 gram tablet 1 g PO BID 03/17/24 03/17/24 Unknown History mirtazapine 15 mg tablet (Remeron) 15 mg PO BEDTIME 03/17/24 03/17/24 Unknown History trazodone 50 mg tablet 25 mg PO BEDTIME 03/17/24 03/17/24 Unknown History Physical Exam Vital Signs: Vital Signs: Last Vital Signs Temp 98.0 F 03/30/24 12:48 Pulse 71 03/30/24 12:48 Resp 18 03/30/24 12:48 BP 107/65 03/30/24 12:48 Pulse Ox 99 03/30/24 12:48 O2 Del Method Room Air 03/30/24 12:48 BMI result Body Mass Index 16.2 Const: General: cooperative, healthy appearing, comfortable and no acute distress Orientation/consciousness: patient oriented x3 HEENT: Face and sinus: Yes normal facial exam Mouth: moist mucous membranes Neck: Neck: Yes normal visual inspection, Yes full ROM and Yes trachea midline Chest: Chest palpation & inspection: normal inspection of the chest Resp: Effort & Inspection: normal respiratory effort, able to speak in complete sentences and no respiratory distress GI: Inspection: Yes normal to inspection Back/Spine/Pelvis: Cervical Spine: normal cervical lordosis Thoracic/Lumbar Spine: thoracic and lumbar spine normal to inspection Skin: General skin exam: no rashes or lesions noted Neuro: General: patient oriented x3, gait normal, tone normal and moves all extremities Extrem: General: Yes normal to inspection and Yes capillary refill normal Results Labs Labs: Abnormal lab results 03/30/24 Range/Units 13:07 Ur Specific Electra >= 1.030 H (1.005-1.025) Urine Protein 100 (2+) H (Neg-Trace) mg/dL Urine Blood Large (3+) H (Negative) Ur Leukocyte Esterase Large (3+) H (Negative) Urine RBC 6-10 H (0-2) /HPF Urine 03/30/24 Range/Units 13:07 Urine Color Yellow Urine Appearance Turbid Urine pH 7.5 (5.0-9.0) Ur Specific Electra >= 1.030 H (1.005-1.025) Urine Protein 100 (2+) H (Neg-Trace) mg/dL Urine Glucose (UA) Negative (Negative) mg/dL All other labs normal. Assessment and Plan (1) Urethral stricture: Status: Acute Plan Keep follow-up Procedures Date of Service Date of Service: 03/30/24 Catheter Insertion (Urinary) Date of insertion: 03/30/24 Time of insertion: 14:55 Replacement of catheter present on admission: Yes Reason for placing: Acute urinary retention Estimated amount of urine (mLs): 400 Antiseptic solution prep: Povidone-Iodine Topical anesthesia used: Yes Size (Thai): 16 Catheter balloon size (mL): 10 Results: consulted Procedure performed: without complications Comment: Catheter placed by Urology. Difficult Moreau catheter placement.
[2024-03-30] MEDS: cefTRIAXone sodium 1 GM in 0.9 % Sodium Chloride 50 ML IV (15:10)
[2024-03-30 15:11] VITALS: BP 108/81; PULSE 70; RESP 20; TEMP 36.6; O2SAT 100
--- NOTE | 2024-03-30 15:11 | PC.NURSE ---
ornelas removed by urology, new ornelas placed by urology with immediate output of 1200mls dark yellow urine
== END 2024-03-30 19:00 | disposition skilled nursing facility (03) ==
PROVIDERS: Registered Nurse Emergency; Emergency Provider Student in an Organized Health Care Education/Training Program; PCP Family Medicine
DX: N39.0 Urinary tract infection, site not specified (principal); R33.9 Retention of urine, unspecified; I48.91 Unspecified atrial fibrillation; Z79.01 Long term (current) use of anticoagulants; Z79.899 Other long term (current) drug therapy
CPT/HCPCS: 51798; 81001; 87086; 87088; 87186; 96365; 99284; J0696

== ENCOUNTER → 2024-03-30 13:32 | Outpatient (BNV) | payer MEDICARE, MEDICAID, SELFPAY | PROVIDERS: Emergency Provider Student in an Organized Health Care Education/Training Program; PCP Family Medicine; Visit Provider Urology | DX: N35.919 Unspecified urethral stricture, male, unspecified site (principal); R33.9 Retention of urine, unspecified | CPT/HCPCS: 51702; 99282 ==

== ENCOUNTER 2024-04-10 06:37 | Outpatient (REF) | payer MEDICARE, MEDICAID, SELFPAY ==
[2024-04-10 06:14] LABS: MANUAL DIFF FLAG NO
[2024-04-10 07:12] LABS: Anion Gap 11 (12-20); Basophils Absolute Auto 0.1 X10*3/uL (0.0-0.2); Basophils Percent Auto 0.9 % (0-2); Blood Urea Nitrogen 16 mg/dL (9-16); Calcium 8.4 mg/dL (8.4-10.2); Carbon Dioxide 24 mmol/L (22-29); Chloride 110 mmol/L (96-108); Eosinophils Absolute Auto 0.2 X10*3/uL (0.0-0.4); Eosinophils Percent Auto 2.5 % (0-4); Estimated Glomerular Filt Rate > 60; Glucose Random 77 mg/dL (60-115); Hemoglobin 11.4 g/dl (14.0-18.0); Imm Gran Abs Auto 0.02 X10*3/uL (0.00-0.03); Imm Gran Pct Auto 0.3 % (0.0-0.4); Lymphocytes Absolute Auto 2.4 X10*3/uL (1.2-4.9); Mean Corpuscular HGB Conc 31.7 g/dl (31.0-36.0); Mean Corpuscular Hemoglobin 29.8 pg (27.0-33.0); Mean Corpuscular Volume 94.2 fL (80.0-98.0); Mean Platelet Volume 9.5 fL (9.4-12.4); Monocytes Absolute Auto 0.6 X10*3/uL (0.1-1.2); Monocytes Percent Auto 8.9 % (2-11); Neutrophils Absolute Auto 3.6 x10*3/uL (2.0-8.3); Neutrophils Percent Auto 52.4 % (45-73); Platelet Count 378 X10*3/uL (160-400); Potassium 3.8 mmol/L (3.3-5.1); Red Blood Count 3.82 X10*6/uL (4.60-5.80); Red Cell Distribution Width 12.8 % (11.0-16.0); Sodium 141 mmol/L (135-145); White Blood Count 6.9 X10*3/uL (4.8-10.8)
== END 2024-04-10 06:38 | disposition home or self-care (01) ==
LOC: HO.MMNH3L 06:37
PROVIDERS: Visit Provider Family Medicine
DX: G93.41 Metabolic encephalopathy (principal); N39.0 Urinary tract infection, site not specified; F41.8 Other specified anxiety disorders
CPT/HCPCS: 36415; 80048; 85025

== ENCOUNTER 2024-04-10 08:24 | Day surgery (SDC) | payer MEDICARE, MEDICAID, SELFPAY ==
--- NOTE | 2024-02-17 10:00 | HO.ANESPROP2 ---
Documented by User: Kayla Omalley NP 02/17/24 10:02 HPI - Anesthesia Eval Consult details Narrative: 78yo M for Cystoscopy & Superpubic tube Placement Dementia, SNF resident. Optimized for surgery per facility provider. Eliquis for afib PMFSH Active Problems Active Problems: All Active Problems Urethral stricture (Acute) Obstructive uropathy (Acute) Hematuria (Acute) Acute UTI (Acute) DOUGLAS (acute kidney injury) (Acute) UTI (urinary tract infection) due to urinary indwelling Moreau catheter (Acute) Bacterial infection due to Morganella morganii (Acute) Gram-positive bacteremia (Acute) Acute UTI (Acute) MRSA bacteremia (Acute) Past Medical History Medical History (Updated 03/31/24 @ 00:01 by Dorian Sevilla) History of rotator cuff syndrome Tricuspid regurgitation Multiple falls COVID-19 SIRS (systemic inflammatory response syndrome) 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 Polyosteoarthritis Metabolic encephalopathy Depression Anxiety Mood disturbance Vitamin B deficiency Chronic indwelling Moreau catheter GERD (gastroesophageal reflux disease) HTN (hypertension) MRSA bacteremia BPH (benign prostatic hyperplasia) 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 Atrial fibrillation Dementia Social History Social History Household Members: Other Housing: [facility] Do you presently have visiting nurse or other home services: Yes (penitentiary) Unable to assess alcohol history related to: Unable to respond Alcohol intake: never Comment: 1:2 sitter in room Patient Tobacco Use Status: Tobacco use Unknown Second Hand Smoke Exposure: No Advance Directives: No Advance Directives Information Provided: Yes Advance Directives Date on File: 06/14/23 service: No Current occupational status: disabled Meds Allergies Allergy/AdvReac Type Severity Reaction Status Date / Time No Known Allergies Allergy Verified 03/30/24 12:54 Home Medications ?Medication ?Instructions ?Recorded ?Confirmed ?Last Taken ?Type apixaban 2.5 mg tablet (Eliquis) 2.5 mg PO BID 08/03/22 03/17/24 Unknown History cyanocobalamin (vitamin B-12) 1,000 mcg PO DAILY 08/03/22 03/17/24 Unknown History 1,000 mcg tablet famotidine 20 mg tablet 20 mg PO BID 08/03/22 03/17/24 Unknown History finasteride 5 mg tablet 5 mg PO DAILY 08/03/22 03/17/24 Unknown History acetaminophen 325 mg tablet 650 mg PO Q6H PRN Fever Or Pain 02/18/23 03/17/24 Unknown History (Tylenol) bisacodyl 10 mg rectal suppository 10 mg WA DAILY PRN Constipation 02/18/23 03/17/24 Unknown History magnesium hydroxide 400 mg/5 mL 30 ml PO DAILY PRN Constipation 02/18/23 03/17/24 Unknown History oral suspension (Milk of Magnesia) sennosides 8.6 mg-docusate sodium 1 tab-cap PO BID 02/18/23 03/17/24 Unknown History 50 mg tablet (Senna with Docusate Sodium) sodium phosphates 19 gram-7 118 ml WA DAILY PRN Constipation 02/18/23 03/17/24 Unknown History gram/118 mL enema (Fleet Enema) ascorbic acid (vitamin C) 500 mg 500 mg PO BID 09/19/23 03/17/24 Unknown History tablet (Vitamin C) Lactobacillus acidophilus 03/17/24 Unknown History (Acidophilus capsule) methenamine hippurate 1 gram tablet 1 g PO BID 03/17/24 03/17/24 Unknown History mirtazapine 15 mg tablet (Remeron) 15 mg PO BEDTIME 03/17/24 03/17/24 Unknown History trazodone 50 mg tablet 25 mg PO BEDTIME 03/17/24 03/17/24 Unknown History Exam Pertinent Lab Results Pertinent Lab Results: Laboratory Tests 02/07/24 05:18 WBC 6.2 Hgb 12.0 L Hct 37.0 L Plt Count 230 D Sodium 143 Potassium 3.7 Chloride 112 H Carbon Dioxide 24 BUN 26 H Creatinine 0.98 Narrative Narrative: EKG 09/2023 Vent. Rate : 072 BPM Atrial Rate : 072 BPM P-R Int : 148 ms QRS Dur : 094 ms QT Int : 386 ms P-R-T Axes : 011 -49 063 degrees QTc Int : 422 ms Sinus rhythm with Premature atrial complexes Left axis deviation Nonspecific T wave abnormality Abnormal ECG When compared with ECG of 21-JUN-2023 03:39, No significant change was found ECHO 2022 Conclusions: - Normal left ventricular size, thickness, and systolic function. The visually estimated ejection fraction is between 55-60%. - E/E prime ratio is between 8 and 15 consistent with indeterminate filling pressures. - Normal right ventricular cavity size and systolic function. - Normal aortic valve structure and function. - Normal mitral valve structure and function. - Normal tricuspid valve structure and function. - There is moderate dilatation of the sinuses of Valsalva measuring 4.50 cm. 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 Polyosteoarthritis Metabolic encephalopathy Depression Anxiety Mood disturbance Vitamin B deficiency Chronic indwelling Moreau catheter GERD (gastroesophageal reflux disease) HTN (hypertension) MRSA bacteremia BPH (benign prostatic hyperplasia) 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 Atrial fibrillation Dementia Family History Family history of problems with anesthesia: No Surgical History History of Problems with Anesthesia: No Social History Social History Household Members: Other Housing: [facility] Do you presently have visiting nurse or other home services: Yes (penitentiary) Unable to assess alcohol history related to: Unable to respond Alcohol intake: never Comment: 1:2 sitter in room Patient Tobacco Use Status: Tobacco use Unknown Second Hand Smoke Exposure: No Advance Directives: No Advance Directives Information Provided: Yes Advance Directives Date on File: 06/14/23 service: No Current occupational status: disabled Meds Allergies Allergy/AdvReac Type Severity Reaction Status Date / Time No Known Allergies Allergy Verified 03/30/24 12:54 Home Medications ?Medication ?Instructions ?Recorded ?Confirmed ?Last Taken ?Type apixaban 2.5 mg tablet (Eliquis) 2.5 mg PO BID 08/03/22 03/17/24 Unknown History cyanocobalamin (vitamin B-12) 1,000 mcg PO DAILY 08/03/22 03/17/24 Unknown History 1,000 mcg tablet famotidine 20 mg tablet 20 mg PO BID 08/03/22 03/17/24 Unknown History finasteride 5 mg tablet 5 mg PO DAILY 08/03/22 03/17/24 Unknown History acetaminophen 325 mg tablet 650 mg PO Q6H PRN Fever Or Pain 02/18/23 03/17/24 Unknown History (Tylenol) bisacodyl 10 mg rectal suppository 10 mg WA DAILY PRN Constipation 02/18/23 03/17/24 Unknown History magnesium hydroxide 400 mg/5 mL 30 ml PO DAILY PRN Constipation 02/18/23 03/17/24 Unknown History oral suspension (Milk of Magnesia) sennosides 8.6 mg-docusate sodium 1 tab-cap PO BID 02/18/23 03/17/24 Unknown History 50 mg tablet (Senna with Docusate Sodium) sodium phosphates 19 gram-7 118 ml WA DAILY PRN Constipation 02/18/23 03/17/24 Unknown History gram/118 mL enema (Fleet Enema) ascorbic acid (vitamin C) 500 mg 500 mg PO BID 09/19/23 03/17/24 Unknown History tablet (Vitamin C) Lactobacillus acidophilus 03/17/24 Unknown History (Acidophilus capsule) methenamine hippurate 1 gram tablet 1 g PO BID 03/17/24 03/17/24 Unknown History mirtazapine 15 mg tablet (Remeron) 15 mg PO BEDTIME 03/17/24 03/17/24 Unknown History trazodone 50 mg tablet 25 mg PO BEDTIME 03/17/24 03/17/24 Unknown History Exam Airway Mallampati Class: II TM Dist: >3cm Neck ROM: Full Partial: Upper and Lower Heart: rrr Lungs: cta Assessment and Plan Assessment Anesthesia Assessment: Anesthesia Plan Discussed Final Anesthetic Review Family History of Problems with Anesthesia: No History of Problems with Anesthesia: No NPO: Yes ASA Class: II Final Preanesthetic Review: No Changes in Pt Med Stat, Meds/Allgs Chart Reviewed and Consent Obtained/Reviewed Patient Risk: Low Procedure Risk: Low Anesthetic Plan Anesthetic Plan: MAC: Disposition: Standard PACU
[2024-03-17 12:33] VITALS: BMI 18.8
[2024-04-10 09:14] VITALS: BP 133/70; PULSE 48; RESP 18; TEMP 36.7; O2SAT 96
--- NOTE | 2024-04-10 09:26 | PC.NURSE ---
Patient has dementia and guardian. Questions answered are based on staff member Em at [facility] called preop.
[2024-04-10] MEDS: Lactated Ringers 1,000 ML 100 ML IVCONT (09:56)
--- NOTE | 2024-04-10 12:51 | MHC.SHP ---
Pre-Procedural Eval Section A - 24 Hr Update-Section A only Date of Service: 04/10/24 The patient is an INPATIENT: No Changes since office visit: No Cold of Flu in the past 2 weeks, No New Medical Problems, No Changes in Medication and No Patient answered all questions The patient has been examined within 24 hours of the surgical procedure. The History & Physical has been completed within 30 days and I have reviewed it.: Yes Section B - Complete if H&P > 30 days Chief Complaint: Neuromuscular dysfunction of bladder, unspecified Details of Present Illness: Case discussed with guardian multiple times previously Allergies: Allergies Allergy/AdvReac Type Severity Reaction Status Date / Time No Known Allergies Allergy Verified 03/30/24 12:54 Review of Systems Sugical H&P ROS: Negative: Constitution, Cardiovascular, Respiratory, Neurological, Psychiatric, Hem-Onc, Allergic/Immunologic, Gastrointestinal, Genitourinary, Musculoskeletal, Integumentary, Endocrine and Eyes/Ears/Nose/Throat Exam Surgical H&P Exam: Normal: HEENT, Normal: Heart, Normal: Lungs, Normal: Extremities, Normal: Abdomen, Normal: Skin and Normal: Neurological Plan Diagnosis/Plan: Unchanged I have reviewed the history and physical and performed a pertinent physical examination on my patient. No changes have occurred unless specified. Time Spent With Patient Time: Total time managing care of this patient today ____ minutes.
--- NOTE | 2024-04-10 13:19 | PC.NURSE ---
Patient became anxious while waiting and removed IV when staff was not at bedside. IV intact. New IV inserted and information director at bedside now until patient goes into OR.
--- NOTE | 2024-04-10 14:35 | W.PM.OPN ---
Operative Note Operative Note Date of Service: 04/10/24 Narrative: PreOperative Diagnosis:?neurogenic bladder Post Operative Diagnosis:?neurogenic bladder Procedure:? 1. Cystoscopy 2. Suprapubic tube placement Surgeon: Dr Sunil Gonzalez Anesthesia:?Sedation plus local Indications for procedure: Neurogenic bladder with indwelling Ornelas Procedure: After informed consent was verified the patient was brought to the operating room and placed in a supine position.? Anesthesia was administered per protocol. The patient was placed in a modified dorsal lithotomy position and prepped and draped in a sterile fashion. A safety pause was performed confirming patient identity, procedure and antibiotics. A 22 Yoruba cystoscope was inserted per urethra. Bladder was examined in its entirety. No abnormalities seen. Air bubble was located at the dome of the bladder. A finder needle was inserted 2 fingerbreaths above the symphysis pubis on the abdomen into the bladder.? The needle was visualized in the bladder via cystoscopy. Local anesthetic was infiltrated subcutaneously around the needle introduction site. A small, 1cm horizontal incision was made.? A trocar introducer was advanced through the abdominal wall into the bladder under visualization. The obturator was removed and a 16 Fr ornelas catheter placed. 7cc was used to inflate the balloon. The external portion of the trocar was removed. Dressing was placed, the bladder was emptied, and a drainage bag was attached. The patient tolerated the procedure and was transferred in stable condition to the recovery area. Suprapubic tube will be changed in 1 month with a follow-up office visit.
[2024-04-10 14:39] VITALS: BP 96/58; PULSE 48; RESP 18; TEMP 36.2; O2SAT 99
[2024-04-10 14:54] VITALS: BP 105/66; PULSE 50; RESP 18; O2SAT 99
[2024-04-10 15:09] VITALS: BP 116/94; PULSE 48; RESP 18; O2SAT 99
[2024-04-10 15:24] VITALS: BP 130/82; PULSE 57; RESP 18; TEMP 36.1; O2SAT 97
== END 2024-04-10 16:10 | disposition home or self-care (01) ==
PROVIDERS: PCP Family Medicine; Visit Provider Urology
PROC: (CPT 51102; principal; 2024-04-10 08:30)
DX: N31.9 Neuromuscular dysfunction of bladder, unspecified (principal); N40.0 Benign prostatic hyperplasia without lower urinary tract symptoms; I10 Essential (primary) hypertension; F03.90 Unspecified dementia, unspecified severity, without behavioral disturbance, psychotic disturbance, mood disturbance, and anxiety; I48.91 Unspecified atrial fibrillation; Z79.01 Long term (current) use of anticoagulants; Z79.899 Other long term (current) drug therapy
CPT/HCPCS: 51102; C1758; C1769; J1956; J2003; J2250; J2704; J2795; J3010

== ENCOUNTER → 2024-04-10 08:24 | Outpatient (BNV) | payer MEDICARE, MEDICAID, SELFPAY | PROVIDERS: PCP Family Medicine; Visit Provider Urology | DX: N31.9 Neuromuscular dysfunction of bladder, unspecified (principal) | CPT/HCPCS: 51102 ==

== ENCOUNTER 2024-05-09 14:00 | Outpatient (AMB) | payer MEDICARE, MEDICAID, SELFPAY ==
--- NOTE | 2024-05-09 14:34 | MHC.OFFVIS ---
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 [facility]. 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 Polyosteoarthritis Metabolic encephalopathy Depression Anxiety Mood disturbance Vitamin B deficiency Chronic indwelling Moreau catheter GERD (gastroesophageal reflux disease) HTN (hypertension) MRSA bacteremia BPH (benign prostatic hyperplasia) 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 Atrial fibrillation Dementia Social History Household Members: Other Housing: [facility] Are you a primary home health care physician to a significant other at home: No Do you presently have visiting nurse or other home services: No Unable to assess alcohol history related to: Unable to respond Alcohol intake: never Comment: 1:2 sitter in room Patient Tobacco Use Status: Tobacco use Unknown Second Hand Smoke Exposure: No Advance Directives Date on File: 06/14/23 service: No Current occupational status: disabled Review of Systems Const Denies chills and Denies fever(s) Card Reports no additional complaints and Denies syncope Resp Denies cough GI Denies abdominal pain and Denies heartburn Reports as per HPI and Denies change in libido Neuro Denies syncope Psych Denies change in libido Endo Denies change in libido Physical Exam Const General: cooperative, healthy appearing, comfortable and no acute distress Orientation/consciousness: patient oriented x3 HEENT Face and sinus: Yes normal facial exam Mouth: moist mucous membranes Neck Neck: Yes normal visual inspection, Yes full ROM and Yes trachea midline Chest Chest palpation & inspection: normal inspection of the chest Resp Effort & Inspection: normal respiratory effort, able to speak in complete sentences and no respiratory distress GI Inspection: Yes normal to inspection Back/Spine/Pelvis Cervical Spine: normal cervical lordosis Thoracic/Lumbar Spine: thoracic and lumbar spine normal to inspection Skin General skin exam: no rashes or lesions noted Neuro General: patient oriented x3, gait normal, tone normal and moves all extremities Extrem General: Yes normal to inspection and Yes capillary refill normal Office Procedures Bladder/Catheter Procedure Details: Suprapubic tube change Upgrade from 16 Chinese to 20 Chinese Clean technique 10 cc in balloon 68125-Fdzhem of bladder tube Procedure code (CPT) selection complete Assessment & Plan Assessment & Plan (1) Obstructive uropathy: Code(s): N13.9 - Obstructive and reflux uropathy, unspecified Category: Medical (2) Incomplete emptying of bladder due to benign prostatic hyperplasia: Code(s): N40.1 - Benign prostatic hyperplasia with lower urinary tract symptoms; R33.9 - Retention of urine, unspecified Category: Medical Plan Six-month follow-up Patient Instructions: Imaging studies, laboratory and physical exam results were discussed and reviewed in detail. No major barriers to patient understanding were identified. An opportunity to ask questions regarding the treatment plan was provided. All questions were answered. The patient expressed understanding and agreement with the above treatment plan. The patient is aware they should contact our office by phone for worsening of their current condition or the appearance of new urologic symptoms. Compliance is encouraged with any medications and followup testing that is ordered. It is a privilege to participate in the urologic care of your patient. If you have any questions or concerns regarding treatment for the above conditions, or other urologic issues, please do not hesitate to contact me. The office telephone contact is [phone]. This note is constructed using voice recognition software. While every effort has been made to ensure accuracy pesticide control inspector errors may have been included. Yours sincerely, Dr Sunil Gonzalez MD, [facility] - Urology Providers of Expert, Compassionate Care for the Genitourinary System Coding Level of Care Code Est Pt Level 3 (00345) Diagnoses Obstructive uropathy N13.9 Incomplete emptying of bladder due to benign prostatic hyperplasia N40.1; R33.9 CPT Codes Bladder/Catheter Procedure - CPT: 46963-Pqkhng of bladder tube ([id number])
== END 2024-05-09 15:16 | disposition home or self-care (01) ==
LOC: HO.HUSH 14:00
PROVIDERS: PCP Family Medicine; Visit Provider Urology
DX: N13.9 Obstructive and reflux uropathy, unspecified (principal); N40.1 Benign prostatic hyperplasia with lower urinary tract symptoms; R33.9 Retention of urine, unspecified; Z43.5 Encounter for attention to cystostomy
CPT/HCPCS: 51705; 99213

== ENCOUNTER → 2024-05-09 14:00 | Outpatient (BNVA) | payer MEDICARE, MEDICAID, SELFPAY | PROVIDERS: PCP Family Medicine; Visit Provider Urology | DX: N31.9 Neuromuscular dysfunction of bladder, unspecified (principal); N40.1 Benign prostatic hyperplasia with lower urinary tract symptoms; R33.8 Other retention of urine; Z46.6 Encounter for fitting and adjustment of urinary device; Z93.50 Unspecified cystostomy status | CPT/HCPCS: 51705; 99212 ==

== ENCOUNTER 2024-05-20 09:19 | Inpatient (IN) | payer MEDICARE, MEDICAID, SELFPAY ==
[2024-05-20] VITALS (16 sets, daily range): BP systolic 83–118; BP diastolic 50–79; PULSE 52–75; RESP 12–19; TEMP 36.6–36.8; O2SAT 95–99; BMI 17.8
--- NOTE | ~2024-05-20 | CT_ITS ---
EXAMINATION: CT ABDOMEN AND PELVIS WITHOUT CONTRAST CLINICAL INFORMATION: Abdominal distention and vomiting. COMPARISON: Prior CT examinations, most recently 01/26/2024. TECHNIQUE: Multidetector volumetric imaging was performed from the superior aspect of the liver through the pubic symphysis. Sagittal and coronal reformatted images were obtained on the technologist's workstation. This CT examination was performed using dose optimization techniques as appropriate, variously including the following: *Automated exposure control *Adjustment of mA and/or kV according to patient size (this includes techniques or standardized protocols for targeted exams where dose is matched to indication/reason for exam; i.e. extremities or head) *Use of iterative reconstruction technique DLP: 514 mGy-cm FINDINGS: LUNG BASES: There is linear scar/subsegmental atelectasis at the posterior bases. Coronary artery atherosclerotic calcifications are noted. There are multi-level pleural calcifications, suggesting prior asbestos exposure. Scant bilateral pleural effusions are noted. LIVER, GALLBLADDER, AND BILIARY TREE: The liver is normal in size, shape, and attenuation. Adjacent to the falciform ligament, a 1.3 cm low-attenuation cyst is seen, with precontrast Hounsfield value of 0.6 units. No focal hepatic lesion or biliary ductal dilatation is present. A large gallstone is seen, without gallbladder wall thickening or obvious pericholecystic inflammatory change. PANCREAS: Unremarkable. SPLEEN: Unremarkable. ADRENAL GLANDS: Unremarkable. KIDNEYS AND URETERS: The kidneys are normal in size, shape, and attenuation. There are again benign, simple bilateral renal cysts, for which no imaging follow-up is recommended. At the lower pole of the left kidney (3:34), there are 1.0 cm and 0.7 cm nonobstructing calculi. No further urinary calculus is seen, and there is no bilateral hydronephroureter. No perinephric stranding. BLADDER: There are multiple layering bladder calculi, the largest measuring 4 mm (3:73). A Moreau catheter is noted within the bladder, there is a tiny amount of nondependent gas. The gallbladder is partially contracted, and there is equivocal wall thickening. Mild perivesicular fat stranding is noted. GASTROINTESTINAL TRACT: A duodenal diverticulum is noted. There are multiple distended proximal and mid small bowel loops, one of the largest within the pelvis measuring 3.5 cm (3:65). There is relative decompression of distal small bowel loops, suggesting a distal small bowel obstruction. A transition point is questioned within the distal small bowel (3:57 and 6:29). There is moderate diverticulosis, without acute diverticulitis. No free intraperitoneal air is seen. The vermiform appendix is not identified with certainty; however, there is no finding to suggest appendicitis. ABDOMINAL WALL: There are small fat-containing bilateral inguinal hernias. LYMPH NODES: Normal. VASCULAR: There is moderate aortoiliac atherosclerotic calcification. No abdominal aortic aneurysm is seen. PELVIC VISCERA: There is mild prostatomegaly, with a transverse span of 5.1 cm (3:79). The seminal vesicles are unremarkable. OSSEOUS STRUCTURES: There is marked degenerative disease extending from L2-3 through L5-S1. No acute or aggressive osseous finding is noted. CT/CT abdomen pelvis wo IV con IMPRESSION: 1. There are multiple distended proximal and mid small bowel loops, with relative decompression of the distal small bowel and colon. Findings suggest a distal small bowel obstruction. No free intraperitoneal air is seen. 2. There is cholelithiasis. 3. Nonobstructing left renal calculi are seen. No further urinary calculus is seen, and there is no obstructive uropathy. 4. There are layering urinary bladder calculi. The urinary bladder is decompressed by Moreau catheter and shows mild wall thickening, possibly infectious or inflammatory in etiology, versus pseudothickening from suboptimal filling. Recommend correlation with the patient's most recent urinalysis. 5. There are small fat-containing bilateral inguinal hernias. 6. There is mild prostatomegaly. 7. There is marked degenerative disc disease extending from L2-3 through L5-S1. 8. There are bibasilar atelectatic foci. There are pleural calcifications, suggesting prior asbestos exposure. Scant bilateral pleural effusions are seen. 9. Coronary artery atherosclerotic calcifications are noted. Fleischner guidelines were followed. Electronically signed by: Rolan Mayfield MD 05/20/2024 01:40 PM EST
--- NOTE | ~2024-05-20 | XR_ITS ---
EXAMINATION: XR ABDOMEN KUB CLINICAL INDICATION: Ileus vs sbo COMPARISON: Correlated to CT dated May 20, 2024. TECHNIQUE: AP view of the abdomen. FINDINGS: Air-fluid levels in the left upper hemiabdomen. Gas filled prominent small bowel loops in the left hemiabdomen. Paucity of intestinal filled gas in the pelvis. There is a likely suprapubic catheter in place. Multilevel thoracolumbar spondylosis. Vascular calcifications. XR/XR KUB IMPRESSION: Ileus versus intermittent/partial mid to distal small bowel obstruction. Electronically signed by: Brooks Kaufman MD 05/23/2024 07:00 AM EST
--- NOTE | ~2024-05-20 | XR_ITS ---
EXAMINATION: XR CHEST CLINICAL INFORMATION: Weakness COMPARISON: 09/19/2023 TECHNIQUE: Portable upright 10:40 AM view of the chest was obtained. FINDINGS: Chronic increased markings which cardiac location which represent atelectasis versus recurrent pneumonia. Trace left-sided pleural effusion suspected. Right lung clear. No significant abnormality is otherwise noted involving the heart, lungs, mediastinum, bony thorax or soft tissues. XR/XR chest 1V IMPRESSION: Left basilar airspace disease as above. Trace left-sided pleural effusion. Electronically signed by: Mamadou Calero MD 05/20/2024 10:48 AM [facility]
--- NOTE | ~2024-05-20 | CT_ITS ---
EXAMINATION: CT ABDOMEN AND PELVIS WITHOUT CONTRAST CLINICAL INFORMATION: Ileus versus bowel obstruction. COMPARISON: CT dated May 20, 2024. TECHNIQUE: Multidetector volumetric imaging was performed from the superior aspect of the liver through the pubic symphysis. Sagittal and coronal reformatted images were obtained on the technologist's workstation. This CT examination was performed using dose optimization techniques as appropriate, variously including the following: *Automated exposure control *Adjustment of mA and/or kV according to patient size (this includes techniques or standardized protocols for targeted exams where dose is matched to indication/reason for exam; i.e. extremities or head) *Use of iterative reconstruction technique DLP: 424 mGy-cm FINDINGS: Inadequate evaluation of the intra-abdominal organs and vascular structures due to lack of IV contrast. Bilateral pleural effusions, moderate to large volume. Prominent, nonspecific lymph nodes, mediastinum. Calcified plaques in the thoracic aorta and coronary arteries. Ascending thoracic aorta diameter is 4.3 cm. LIVER, GALLBLADDER, AND BILIARY TREE: Liver measures 16 cm. Less than 1.5 cm hypodensities in the left hepatic lobe and adjacent to the falciform ligament. There is a 2 cm peripheral calcified lesion in the gallbladder lumen. The common bile duct measures 9 mm. PANCREAS: No peripancreatic fluid collection. No main pancreatic ductal dilatation. SPLEEN: 7 cm. ADRENAL GLANDS: Soft tissue fullness. No nodular lesion. KIDNEYS AND URETERS: Cluster of calculi in the left pelvicalyceal system, the largest measures 10 mm. No hydronephrosis. Renal cortical thinning. 2.4 cm exophytic fluid density in the lateral upper pole midportion left kidney. 1.5 cm fluid density in the lower pole right kidney. BLADDER: Fluid-filled distended. Suprapubic catheter and intraluminal gas likely postinstrumentation. Multiple layering calcifications in the bladder lumen. GASTROINTESTINAL TRACT: Numerous diverticula in the sigmoid colon. Gas and fluid-filled prominent degenerative loops with small caliber of the distal ileal loops. Questionable edematous wall in some segments of the small bowel loops. No pneumatosis intestinalis. Gas and fluid-filled large-volume diverticulum, second portion of the duodenum. Ascites, small to moderate volume. No pneumoperitoneum. I do not see the appendix. ABDOMINAL WALL: No gross hernia. Diffuse edema pattern throughout the fat planes of the abdomen and pelvis wall and upper thighs/gluteal region. LYMPH NODES: No gross lymphadenopathy. VASCULAR: Throughout the abdominal aorta wall the origin of the mesenteric arteries and the main renal arteries. Mixed plaques in the iliac arteries. No aneurysm, abdominal aorta. PELVIC VISCERA: Heterogeneously enlarged, 6 cm prostate gland protruding upon the urinary bladder floor. OSSEOUS STRUCTURES: Bone marrow inhomogeneity. Multilevel marginal osteophyte formation and endplate sclerosis, decreased intervertebral disc height, subchondral cyst formation and vacuum phenomenon more conspicuous from L2 to S1. Bilateral neuroforamina stenosis from L2-3, to L5-S1 on a degenerative basis. Focal 10 mm blastic lesion at T12 vertebra. Spina bifida occulta, S1. No acute fracture. CT/CT abdomen pelvis wo IV con IMPRESSION: Overall improved with persistent ileus versus partial/intermittent mid to distal small bowel obstruction. Overall worsening third spacing volume syndrome. Cholelithiasis. Sigmoid colon diverticular disease. Probable benign prostate hyperplasia resulting in urinary outlet obstruction. Underlying malignancy cannot be excluded. 4.3 cm ectasia, ascending thoracic aorta Nonobstructing nephrolithiasis, left kidney. Cystic lesions, both kidneys. Coronary artery disease and atherosclerosis disease.. Fleischner guidelines were followed. Electronically signed by: Brooks Kaufman MD 05/24/2024 09:50 AM EST
--- NOTE | 2024-05-20 09:39 | ECG_ITS ---
Test Reason : AMS Blood Pressure : / mmHG Vent. Rate : 072 BPM Atrial Rate : 072 BPM P-R Int : 174 ms QRS Dur : 092 ms QT Int : 424 ms P-R-T Axes : 035 -22 023 degrees QTc Int : 464 ms Sinus rhythm with occasional Premature ventricular complexes Low voltage QRS Nonspecific T wave abnormality Prolonged QT Abnormal ECG When compared with ECG of 19-SEP-2023 13:23, Premature ventricular complexes are now Present Premature atrial complexes are no longer Present Nonspecific T wave abnormality now evident in Inferior leads Referred By: Korin Cook Electronically Signed By:Ezio Rudd
[2024-05-20] MEDS: Pantoprazole Sodium 40 MG/10 ML VIAL IVPUSH ×2 (10:08→23:49)
[2024-05-20] MEDS: ondansetron HCL 4 MG/2 ML VIAL IVPUSH (10:08)
--- NOTE | 2024-05-20 10:15 | ED_ITS ---
HPI - General Adult General Chief complaint: General Medical Stated complaint: AMS,GIB,VOMITING BLOOD,FROM SNF PER EMS Time Seen by Provider: 05/20/24 09:34 Source: patient and EMS Mode of arrival: EMS Limitations: altered mental status History of Present Illness ED Provider: JASE REID narrative: 78 yo male with PMH of dementia and mood disorder, BPH with chronic ornelas, PAF on eliquis, HTN, GERD, MRSA UTI/bacteremia - who reportedly has worsening mentatiion and then vomited with coffee ground emesis. He has no complaints but has dried brown material on his teeth. He is very upset and slightly agitated he is here. He denies pain to palpation initially but then states it hurts afterwards. He is a very poor historian MD complaint: coffee ground emesis Onset (ago): day(s) (this AM) Location: abdomen Radiation: non-radiation Severity: mild Pain Consistency: intermittent Relieving factors: none Exacerbating factors: other (palpation) Associated symptoms: other (he denies but SNF reports coffee ground emesis) Treatments prior to arrival: none Related Data Home Medications ?Medication ?Instructions ?Recorded ?Confirmed apixaban 2.5 mg tablet (Eliquis) 2.5 mg PO BID 08/03/22 05/20/24 cyanocobalamin (vitamin B-12) 1,000 mcg PO DAILY 08/03/22 05/20/24 1,000 mcg tablet famotidine 20 mg tablet 20 mg PO BID 08/03/22 05/20/24 finasteride 5 mg tablet 5 mg PO DAILY 08/03/22 05/20/24 acetaminophen 325 mg tablet 650 mg PO Q6H PRN Fever Or Pain 02/18/23 05/20/24 (Tylenol) bisacodyl 10 mg rectal suppository 10 mg KS DAILY PRN Constipation 02/18/23 05/20/24 magnesium hydroxide 400 mg/5 mL 30 ml PO DAILY PRN Constipation 02/18/23 05/20/24 oral suspension (Milk of Magnesia) sennosides 8.6 mg-docusate sodium 1 tab-cap PO BID 02/18/23 05/20/24 50 mg tablet (Senna with Docusate Sodium) sodium phosphates 19 gram-7 118 ml KS DAILY PRN Constipation 02/18/23 05/20/24 gram/118 mL enema (Fleet Enema) methenamine hippurate 1 gram tablet 1 g PO BID 03/17/24 05/20/24 mirtazapine 15 mg tablet (Remeron) 15 mg PO BEDTIME 03/17/24 05/20/24 trazodone 50 mg tablet 25 mg PO BEDTIME 03/17/24 05/20/24 Lactobacillus acidophilus 10,000 mmu cells PO DAILY 05/20/24 05/20/24 (Acidophilus capsule) mupirocin 2 % topical ointment 1 appl topical BID 05/20/24 05/20/24 naproxen 375 mg tablet 375 mg PO BID PRN Pain (Scale 05/20/24 05/20/24 Score 1-3) Allergies Allergy/AdvReac Type Severity Reaction Status Date / Time No Known Allergies Allergy Verified 05/20/24 09:29 Review of Systems 2 Review of Systems: ROS unable to be obtained due to dementia [facility] Past Medical History Medical History History of rotator cuff syndrome Tricuspid regurgitation Multiple falls COVID-19 SIRS (systemic inflammatory response syndrome) 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 Polyosteoarthritis Metabolic encephalopathy Depression Anxiety Mood disturbance Vitamin B deficiency Chronic indwelling Ornelas catheter GERD (gastroesophageal reflux disease) HTN (hypertension) MRSA bacteremia BPH (benign prostatic hyperplasia) 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 Atrial fibrillation Dementia Social History Social History Household Members: Other Housing: [facility] Are you a primary patient centered care specialist to a significant other at home: No Do you presently have visiting nurse or other home services: No Unable to assess alcohol history related to: Unable to respond Alcohol intake: never Comment: 1:2 sitter in room Patient Tobacco Use Status: Tobacco use Unknown Smoked in Last 30 Days: No Second Hand Smoke Exposure: No Use of substances other than those prescribed or required for medical reasons: No Advance Directives: Yes Advance Directives Information Provided: No Advance Directives on File: No Advance Directives Date on File: 06/14/23 Do you have a plan to hurt others: No Plan service: No Current occupational status: disabled Physical Exam ED Vital Signs: Vital Signs - 24 hr 05/20/24 09:26 05/20/24 09:39 05/20/24 10:00 Temperature 98.1 F Pulse Rate 75 72 72 Respiratory Rate 18 17 Blood Pressure 102/75 99/56 L 93/59 L Pulse Oximetry 95 Oxygen Delivery Method Room Air 05/20/24 11:00 05/20/24 11:15 05/20/24 11:32 Temperature 98 F Pulse Rate 71 72 65 Respiratory Rate 19 19 Blood Pressure 83/58 L 91/52 L 104/64 Pulse Oximetry 95 97 Oxygen Delivery Method Room Air 05/20/24 12:23 Temperature Pulse Rate 61 Respiratory Rate 17 Blood Pressure 117/60 Pulse Oximetry 99 Oxygen Delivery Method Room Air BMI result Body Mass Index 17.8 Appearance: Alert. Oriented to self. No acute distress. Eyes: Pupils equal, round and reactive to light. ENT: Pharynx normal. Neck: Normal inspection. Neck supple. CVS: Normal heart rate and rhythm. Pulses normal. Respiratory: No respiratory distress. Breath sounds normal. Abdomen: Soft and nontender but then states it hurts in lower abdomen Skin: Skin warm and dry. Normal skin color. Normal skin turgor. Extremities: No lower extremity edema. Neuro: Oriented X 1. No motor deficit. No sensory deficit. Course Course Course Narrative: infection suspected at 11am Medications Administered Discontinued Medications Generic Name Dose Route Start Last Admin Trade Name Freq PRN Reason Stop Dose Admin Ceftriaxone Sodium 1 gm 05/20/24 10:53 05/20/24 11:06 Ceftriaxone Sodium 1 Gm Vial IVPUSH 05/20/24 10:54 1 gm ONCE ONE Administration Lactated Ringer's 1,500 mls @ 1,500 mls/hr 05/20/24 10:53 05/20/24 12:48 Lr 30 ml/kg infuse over 1 hr (1500 ml) 05/20/24 11:52 Infused IV Infusion .Q1H ONE Azithromycin 500 mg/ Sodium 250 mls @ 125 mls/hr 05/20/24 10:54 05/20/24 12:20 Chloride IV 05/20/24 12:53 125 mls/hr ONCE ONE Administration Albumin Human 100 mls @ 133.333 mls/hr 05/20/24 11:00 05/20/24 12:48 Kedbumin 25 % IV 05/20/24 12:44 Infused Q1H CHRISS Infusion Lidocaine HCl 10 ml 05/20/24 10:58 05/20/24 11:13 Lidocaine Hcl 2 % Urojet 10 Ml Jel.Pf.Fara TOPICAL 05/20/24 10:59 Not Given ONCE ONE Ondansetron HCl 4 mg 05/20/24 09:39 05/20/24 10:08 Ondansetron Hcl 4 Mg/2 Ml Vial IVPUSH 05/20/24 09:40 4 mg ONCE ONE Administration Pantoprazole Sodium 40 mg 05/20/24 09:39 05/20/24 10:08 Pantoprazole Sodium 40 Mg/10 Ml Vial IVPUSH 05/20/24 09:40 40 mg ONCE ONE Administration Medical Decision Making Medical Decision Making [facility] Narrative: 78 yo male with PMH of dementia and mood disorder, BPH with chronic ornelas, PAF on eliquis, HTN, GERD, MRSA UTI/bacteremia at this time he might have abdominal pain it is hard to tell, he is resistent to any movement or physical exam and gets agitated - 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 The history is very limited at this time. Differential Diagnosis Differential Diagnoses: The differential diagnosis associated with the presentation includes UGIB, anemia, dehydration, vomiting, SBO, ileus Admission/Observation Consideration of admission/observation: Escalation of care including admission/observation considered given labs, CXR, UA, DOUGLAS, SBO will need admission Consult Healthcare Provider Management of the patient was discussed with: Hospitalist (will admit) and Carbon Sequestration Plant Manager (Dr. Mireles evaluate and will follow) Lab Data [facility] Lab Attestation statement: I reviewed the patient's lab results. 05/20/24 10:19 05/20/24 10:19 Labs: Lab Results 05/20/24 05/20/24 Range/Units 10:19 11:30 WBC 11.2 H (4.8-10.8) X10*3/uL RBC 3.34 L (4.60-5.80) X10*6/uL Hgb 10.3 L (14.0-18.0) g/dl Hct 31.3 L (42.0-52.0) % MCV 93.7 (80.0-98.0) fL MCH 30.8 (27.0-33.0) pg MCHC 32.9 (31.0-36.0) g/dl RDW 14.6 (11.0-16.0) % Plt Count 342 (160-400) X10*3/uL MPV 10.0 (9.4-12.4) fL Immature Gran % (Auto) 0.4 (0.0-0.4) % Neut % (Auto) 75.0 H (45-73) % Lymph % (Auto) 15.4 L (20-40) % [place] % (Auto) 8.0 (2-11) % Eos % (Auto) 0.8 (0-4) % Baso % (Auto) 0.4 (0-2) % Lymph # (Auto) 1.7 (1.2-4.9) X10*3/uL [place] # (Auto) 0.9 (0.1-1.2) X10*3/uL Eos # (Auto) 0.1 (0.0-0.4) X10*3/uL Baso # (Auto) 0.0 (0.0-0.2) X10*3/uL Abs Immat Gran (auto) 0.04 H (0.00-0.03) X10*3/uL Absolute Neuts (auto) 8.4 H (2.0-8.3) x10*3/uL Absolute Nucleated RBC 0.000 (0.0-0.012) X10*3/uL Nucleated RBC % (auto) 0.0 (0.0-0.2) /100WBC PT 16.7 H (10.9-12.4) SEC INR 1.4 H (0.9-1.1) Sodium 141 (135-145) mmol/L Potassium 4.3 (3.3-5.1) mmol/L Chloride 102 (96-108) mmol/L Carbon Dioxide 27 (22-29) mmol/L Anion Gap 16 (12-20) BUN 82 H (9-16) mg/dL Creatinine 2.68 H (0.5-1.4) mg/dL Estim Creat Clear Calc 16.0 Estimated GFR 23 Random Glucose 97 (60-115) mg/dL Lactic Acid 1.1 (0.5-2.0) mmol/L Calcium 9.0 D (8.4-10.2) mg/dL Magnesium 2.2 (1.6-2.6) mg/dL Total Bilirubin 0.6 (0.0-1.0) mg/dL Direct Bilirubin 0.3 (0.0-0.5) mg/dL AST 35 (5-37) U/L ALT 12 (0-40) U/L Alkaline Phosphatase 68 (39-117) U/L Troponin I High Sens 3.9 D (<3.5-35.0) ng/L Total Protein 7.0 (6.5-8.0) g/dL Albumin 3.4 L (3.5-5.0) g/dL Lipase 37 (8-78) U/L Urine Color BROWN Urine Appearance Turbid Urine pH 5.5 (5.0-9.0) Ur Specific [place] 1.020 (1.005-1.025) Urine Protein 100 (2+) H (Neg-Trace) mg/dL Urine Glucose (UA) 100 H (Negative) mg/dL Urine Ketones Trace (Negative) mg/dL Urine Blood Large (3+) H (Negative) Urine Nitrite Positive H (Negative) Ur Leukocyte Esterase Moderate (2+) H (Negative) Urine RBC >20 H (0-2) /HPF Urine WBC >50 (0-5) /HPF Ur Squamous Epith Cells 3-5 (0-2) /HPF Other Crystals Present Urine Bacteria Trace (None Seen) Hyaline Casts 0-2 (0-2) /LPF Blood Type AB Negative Antibody Screen NEGATIVE Independent Interpretation I performed an independent interpretation of an: EKG, Plain X-Ray (left lung opacity) and CT Scan (SBO) Interpretation: Rate: 72 Rhythm: NSR with PVCs [place]: left Normal P waves. Normal MEAGHAN. Normal QRS complex. ST T wave : no Feroz, flat t waves I and aVL qTC: 464 prior studies: no acute ischemia The study has been interpreted contemporaneously by me. . Radiology Impression Discussion of test interpretation with radiology: I have reviewed the radiologist's reading. Independent Historian Clinical information obtained from an independent historian. History obtained from or confirmed by: EMS External Record Review External record reviewed: Inpatient record and Outpatient record Discharge Plan Discharge Clinical Impression: DOUGLAS (acute kidney injury), Left upper lobe pneumonia, SBO (small bowel obstruction) Patient Disposition: Admitted As Inpatient Print Language: Chinese
[2024-05-20 10:25] LABS: Basophils Percent Auto 0.4 % (0-2); Eosinophils Absolute Auto 0.1 X10*3/uL (0.0-0.4); Eosinophils Percent Auto 0.8 % (0-4); Hematocrit 31.3 % (42.0-52.0); Hemoglobin 10.3 g/dl (14.0-18.0); Imm Gran Abs Auto 0.04 X10*3/uL (0.00-0.03); Imm Gran Pct Auto 0.4 % (0.0-0.4); Lymphocytes Absolute Auto 1.7 X10*3/uL (1.2-4.9); Lymphocytes Percent Auto 15.4 % (20-40); MANUAL DIFF FLAG NO; Mean Corpuscular HGB Conc 32.9 g/dl (31.0-36.0); Mean Corpuscular Hemoglobin 30.8 pg (27.0-33.0); Mean Corpuscular Volume 93.7 fL (80.0-98.0); Monocytes Absolute Auto 0.9 X10*3/uL (0.1-1.2); Neutrophils Absolute Auto 8.4 x10*3/uL (2.0-8.3); Platelet Count 342 X10*3/uL (160-400); Red Blood Count 3.34 X10*6/uL (4.60-5.80); Red Cell Distribution Width 14.6 % (11.0-16.0); White Blood Count 11.2 X10*3/uL (4.8-10.8)
--- NOTE | 2024-05-20 10:31 | PHA.MEDREC ---
Pharmacy Consult ? Medication Reconciliation Pharmacy has completed the medication reconciliation. List from Noel May
[2024-05-20 10:35] LABS: INTERNATIONAL NORM RATIO 1.4 (0.9-1.1); Prothrombin Time 16.7 SEC (10.9-12.4)
[2024-05-20 10:50] LABS: Alanine Aminotransferase 12 U/L (0-40); Albumin Level 3.4 g/dL (3.5-5.0); Alkaline Phosphatase 68 U/L (39-117); Anion Gap 16 (12-20); Aspartate Amino Transferase 35 U/L (5-37); Bilirubin Direct 0.3 mg/dL (0.0-0.5); Bilirubin Total 0.6 mg/dL (0.0-1.0); Blood Urea Nitrogen 82 mg/dL (9-16); Carbon Dioxide 27 mmol/L (22-29); Chloride 102 mmol/L (96-108); Estimated Glomerular Filt Rate 23; Glucose Random 97 mg/dL (60-115); Lipase 37 U/L (8-78); Magnesium 2.2 mg/dL (1.6-2.6); Potassium 4.3 mmol/L (3.3-5.1); Sodium 141 mmol/L (135-145)
[2024-05-20 10:51] LABS: Lactic Acid 1.1 mmol/L (0.5-2.0)
[2024-05-20 10:57] LABS: Troponin-I High Sensitivity 3.9 ng/L (<3.5-35.0)
[2024-05-20 11:05] LABS: Influenza A PCR NEGATIVE (Negative); Influenza B PCR NEGATIVE (Negative); Resp Syncy Virus RNA Qual PCR NEGATIVE (Negative); SARS COV2 PCR INHOUSE NEGATIVE (Negative)
[2024-05-20] MEDS: Lactated Ringers 1,500 ML 1500 ML IV (11:06)
[2024-05-20] MEDS: cefTRIAXone sodium 1 GM VIAL IVPUSH (11:06)
[2024-05-20] MEDS: Albumin Human 25 % 100 ML 133.33 ML IV ×2 (11:07→14:47)
--- NOTE | 2024-05-20 11:16 | PC.NURSE ---
alert but confused to time and place, denies pain or dizziness, medicated as ordered, cultures and labs sent, has a chronic ornelas,
[2024-05-20 11:50] LABS: Appearance Urine Turbid; Glucose Urine UA 100 mg/dL (Negative); Leukocyte Esterase Urine Moderate (2+) (Negative); Nitrite Urine Positive (Negative); PH 5.5 (5.0-9.0); UMIC TRIGGER UACC YES; Urine Blood Large (3+) (Negative); Urine Ketones Trace mg/dL (Negative); Urine Protein 100 (2+) mg/dL (Neg-Trace)
[2024-05-20 11:54] LABS: Color Urine BROWN
[2024-05-20 12:00] LABS: Bacteria Urine Trace (None Seen); Hyaline Casts Urine 0-2 /LPF (0-2); RBC Urine >20 /HPF (0-2); UACC Culture Trigger YES; WBC Urine >50 /HPF (0-5)
[2024-05-20 12:01] LABS: Other Crystals Urine Present
[2024-05-20] MEDS: Azithromycin 500 MG in 0.9 % Sodium Chloride 250 ML 125 MG IV (12:20)
--- NOTE | 2024-05-20 14:45 | PM.CNGS ---
History of Present Illness Consult details Consult date: 05/20/24 Narrative: 78-year-old male with multiple medical problems including atrial fibrillation, on anticoagulation, history of metabolic encephalopathy, indwelling Moreau catheter obstructive uropathy, dementia, sent to the ER by the intermediate facility because of an episode of coffee-ground emesis The patient is a very poor historian so no details of his history is otherwise available. He has uncertain simple questions. He denies any pain at this time. He denies any tenderness on exam. He did have a CT scan done ED showing multiple distended proximal and mid small bowel loops so a small bowel obstruction could not be ruled out. I was therefore consulted. He does not recall most recent flatus or BMs. 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 Polyosteoarthritis Metabolic encephalopathy Depression Anxiety Mood disturbance Vitamin B deficiency Chronic indwelling Moreau catheter GERD (gastroesophageal reflux disease) HTN (hypertension) MRSA bacteremia BPH (benign prostatic hyperplasia) Hx of alf use of blood thinners Atrial fibrillation Dementia Social History Social History Household Members: Other Housing: Prison Are you a primary health care facilities inspector to a significant other at home: No Do you presently have visiting nurse or other home services: No Unable to assess alcohol history related to: Unable to respond Alcohol intake: never Comment: 1:2 sitter in room Patient Tobacco Use Status: Tobacco use Unknown Smoked in Last 30 Days: No Second Hand Smoke Exposure: No Use of substances other than those prescribed or required for medical reasons: No Advance Directives: Yes Advance Directives Information Provided: No Advance Directives on File: No Advance Directives Date on File: 06/14/23 Do you have a plan to hurt others: No Plan service: No Current occupational status: disabled Meds Allergies Allergy/AdvReac Type Severity Reaction Status Date / Time No Known Allergies Allergy Verified 05/20/24 09:29 Active Medications: Current Medications Acetaminophen (Acetaminophen 325 Mg Tablet) 650 mg PO Q6H PRN PRN Reason: Pain, Mild (Pain Scale 1-3), fever or headache Calcium Carbonate (Calcium Carbonate 750 Mg Tab.Chew) 750 mg PO Q4H PRN PRN Reason: Heartburn Ceftriaxone Sodium (Ceftriaxone Sodium 1 Gm Vial) 1 gm IVPUSH Q24H CHRISS Cyanocobalamin (Cyanocobalamin (Vitamin B-12) 1,000 Mcg Tablet) 1,000 mcg PO DAILY CHRISS Finasteride (Finasteride 5 Mg Tablet) 5 mg PO DAILY CHRISS Lactated Ringer's (Lr) 1,000 mls @ 80 mls/hr IVCONT .[id number] CHRISS Azithromycin 500 mg/ Sodium (Chloride) 250 mls @ 125 mls/hr IV Q24H CHRISS Magnesium Hydroxide (Milk Of Magnesia 30 Ml Oral.Susp) 30 ml PO DAILY PRN PRN Reason: Constipation Melatonin (Melatonin 3 Mg Tablet) 6 mg PO BEDTIME PRN PRN Reason: Insomnia Mirtazapine (Mirtazapine 15 Mg Tablet) 15 mg PO BEDTIME CHRISS Mupirocin (Mupirocin 2 % Oint 22 Gm Tube) 1 appl TOPICAL BID CHRISS; Protocol Non-Formulary Medication (Lactobacillus Acidophilus [Acidophilus]) 10,000 mmu cells PO DAILY CHRISS Pantoprazole Sodium (Pantoprazole Sodium 40 Mg/10 Ml Vial) 40 mg IVPUSH BID CHRISS Sodium Chloride (0.9 % Sodium Chloride Flush 3 Ml Syringe) 3 ml IVFLUSH QSHIFT CHRISS Trazodone HCl (Trazodone Hcl 25 Mg Halftab) 25 mg PO BEDTIME CHRISS Home Medications ?Medication ?Instructions ?Recorded ?Confirmed ?Last Taken ?Type apixaban 2.5 mg tablet (Eliquis) 2.5 mg PO BID 08/03/22 05/20/24 04/04/24 History cyanocobalamin (vitamin B-12) 1,000 mcg PO DAILY 08/03/22 05/20/24 Unknown History 1,000 mcg tablet famotidine 20 mg tablet 20 mg PO BID 08/03/22 05/20/24 Unknown History finasteride 5 mg tablet 5 mg PO DAILY 08/03/22 05/20/24 Unknown History acetaminophen 325 mg tablet 650 mg PO Q6H PRN Fever Or Pain 02/18/23 05/20/24 Unknown History (Tylenol) bisacodyl 10 mg rectal suppository 10 mg RI DAILY PRN Constipation 02/18/23 05/20/24 Unknown History magnesium hydroxide 400 mg/5 mL 30 ml PO DAILY PRN Constipation 02/18/23 05/20/24 Unknown History oral suspension (Milk of Magnesia) sennosides 8.6 mg-docusate sodium 1 tab-cap PO BID 02/18/23 05/20/24 Unknown History 50 mg tablet (Senna with Docusate Sodium) sodium phosphates 19 gram-7 118 ml RI DAILY PRN Constipation 02/18/23 05/20/24 Unknown History gram/118 mL enema (Fleet Enema) methenamine hippurate 1 gram tablet 1 g PO BID 03/17/24 05/20/24 Unknown History mirtazapine 15 mg tablet (Remeron) 15 mg PO BEDTIME 03/17/24 05/20/24 Unknown History trazodone 50 mg tablet 25 mg PO BEDTIME 03/17/24 05/20/24 Unknown History Lactobacillus acidophilus 10,000 mmu cells PO DAILY 05/20/24 05/20/24 Unknown History (Acidophilus capsule) mupirocin 2 % topical ointment 1 appl topical BID 05/20/24 05/20/24 Unknown History naproxen 375 mg tablet 375 mg PO BID PRN Pain (Scale 05/20/24 05/20/24 Unknown History Score 1-3) Physical Exam Vital Signs: Vital Signs: Last Vital Signs Temp 98 F 05/20/24 11:32 Pulse 65 05/20/24 14:05 Resp 14 05/20/24 14:05 BP 107/70 05/20/24 14:05 Pulse Ox 99 05/20/24 14:05 O2 Del Method Room Air 05/20/24 14:05 BMI result Body Mass Index 17.8 Const: Other: Answers simple questions General: comfortable and no acute distress Resp: Effort & Inspection: normal respiratory effort Cardio: Rate: regular rate GI: Other: No obvious surgical scars Inspection: No distended Palpation (GI): Soft to palpation, not firm, nontender and no guarding Results Labs 05/20/24 21:46 05/21/24 06:18 Labs: Abnormal lab results 05/20/24 05/20/24 Range/Units 10:19 11:30 WBC 11.2 H (4.8-10.8) X10*3/uL RBC 3.34 L (4.60-5.80) X10*6/uL Hgb 10.3 L (14.0-18.0) g/dl Hct 31.3 L (42.0-52.0) % Neut % (Auto) 75.0 H (45-73) % Lymph % (Auto) 15.4 L (20-40) % Abs Immat Gran (auto) 0.04 H (0.00-0.03) X10*3/uL Absolute Neuts (auto) 8.4 H (2.0-8.3) x10*3/uL PT 16.7 H (10.9-12.4) SEC INR 1.4 H (0.9-1.1) BUN 82 H (9-16) mg/dL Creatinine 2.68 H (0.5-1.4) mg/dL Albumin 3.4 L (3.5-5.0) g/dL Urine Protein 100 (2+) H (Neg-Trace) mg/dL Urine Glucose (UA) 100 H (Negative) mg/dL Urine Blood Large (3+) H (Negative) Urine Nitrite Positive H (Negative) Ur Leukocyte Esterase Moderate (2+) H (Negative) Urine RBC >20 H (0-2) /HPF Short CBC 05/20/24 Range/Units 10:19 WBC 11.2 H (4.8-10.8) X10*3/uL Hgb 10.3 L (14.0-18.0) g/dl Hct 31.3 L (42.0-52.0) % Plt Count 342 (160-400) X10*3/uL BMP 05/20/24 10:19 Sodium 141 Potassium 4.3 Chloride 102 Carbon Dioxide 27 BUN 82 H Creatinine 2.68 H Calcium 9.0 D Liver Function 05/20/24 Range/Units 10:19 Total Bilirubin 0.6 (0.0-1.0) mg/dL Direct Bilirubin 0.3 (0.0-0.5) mg/dL AST 35 (5-37) U/L ALT 12 (0-40) U/L Alkaline Phosphatase 68 (39-117) U/L Albumin 3.4 L (3.5-5.0) g/dL Urine 05/20/24 Range/Units 11:30 Urine Color BROWN Urine Appearance Turbid Urine pH 5.5 (5.0-9.0) Ur Specific [place] 1.020 (1.005-1.025) Urine Protein 100 (2+) H (Neg-Trace) mg/dL Urine Glucose (UA) 100 H (Negative) mg/dL All other labs normal. Imaging Additional studies: Laboratory Results WBC 11.2 X10*3/uL (4.8-10.8) H 05/20/24 10:19 RBC 3.34 X10*6/uL (4.60-5.80) L 05/20/24 10:19 Hgb 10.3 g/dl (14.0-18.0) L 05/20/24 10:19 Hct 31.3 % (42.0-52.0) L 05/20/24 10:19 MCV 93.7 fL (80.0-98.0) 05/20/24 10:19 MCH 30.8 pg (27.0-33.0) 05/20/24 10:19 MCHC 32.9 g/dl (31.0-36.0) 05/20/24 10:19 RDW 14.6 % (11.0-16.0) 05/20/24 10:19 Plt Count 342 X10*3/uL (160-400) 05/20/24 10:19 MPV 10.0 fL (9.4-12.4) 05/20/24 10:19 Immature Gran % (Auto) 0.4 % (0.0-0.4) 05/20/24 10:19 Neut % (Auto) 75.0 % (45-73) H 05/20/24 10:19 Lymph % (Auto) 15.4 % (20-40) L 05/20/24 10:19 [place] % (Auto) 8.0 % (2-11) 05/20/24 10:19 Eos % (Auto) 0.8 % (0-4) 05/20/24 10:19 Baso % (Auto) 0.4 % (0-2) 05/20/24 10:19 Lymph # (Auto) 1.7 X10*3/uL (1.2-4.9) 05/20/24 10:19 [place] # (Auto) 0.9 X10*3/uL (0.1-1.2) 05/20/24 10:19 Eos # (Auto) 0.1 X10*3/uL (0.0-0.4) 05/20/24 10:19 Baso # (Auto) 0.0 X10*3/uL (0.0-0.2) 05/20/24 10:19 Abs Immat Gran (auto) 0.04 X10*3/uL (0.00-0.03) H 05/20/24 10:19 Absolute Neuts (auto) 8.4 x10*3/uL (2.0-8.3) H 05/20/24 10:19 Absolute Nucleated RBC 0.000 X10*3/uL (0.0-0.012) 05/20/24 10:19 Nucleated RBC % (auto) 0.0 /100WBC (0.0-0.2) 05/20/24 10:19 PT 16.7 SEC (10.9-12.4) H 05/20/24 10:19 INR 1.4 (0.9-1.1) H 05/20/24 10:19 Sodium 141 mmol/L (135-145) 05/20/24 10:19 Potassium 4.3 mmol/L (3.3-5.1) 05/20/24 10:19 Chloride 102 mmol/L (96-108) 05/20/24 10:19 Carbon Dioxide 27 mmol/L (22-29) 05/20/24 10:19 Anion Gap 16 (12-20) 05/20/24 10:19 BUN 82 mg/dL (9-16) H 05/20/24 10:19 Creatinine 2.68 mg/dL (0.5-1.4) H 05/20/24 10:19 Estim Creat Clear Calc 16.0 05/20/24 10:19 Estimated GFR 23 05/20/24 10:19 Random Glucose 97 mg/dL (60-115) 05/20/24 10:19 Lactic Acid 1.1 mmol/L (0.5-2.0) 05/20/24 10:19 Calcium 9.0 mg/dL (8.4-10.2) D 05/20/24 10:19 Magnesium 2.2 mg/dL (1.6-2.6) 05/20/24 10:19 Total Bilirubin 0.6 mg/dL (0.0-1.0) 05/20/24 10:19 Direct Bilirubin 0.3 mg/dL (0.0-0.5) 05/20/24 10:19 AST 35 U/L (5-37) 05/20/24 10:19 ALT 12 U/L (0-40) 05/20/24 10:19 Alkaline Phosphatase 68 U/L (39-117) 05/20/24 10:19 Troponin I High Sens 3.9 ng/L (<3.5-35.0) D 05/20/24 10:19 Total Protein 7.0 g/dL (6.5-8.0) 05/20/24 10:19 Albumin 3.4 g/dL (3.5-5.0) L 05/20/24 10:19 Lipase 37 U/L (8-78) 05/20/24 10:19 Urine Color BROWN 05/20/24 11:30 Urine Appearance Turbid 05/20/24 11:30 Urine pH 5.5 (5.0-9.0) 05/20/24 11:30 Ur Specific [place] 1.020 (1.005-1.025) 05/20/24 11:30 Urine Protein 100 (2+) mg/dL (Neg-Trace) H 05/20/24 11:30 Urine Glucose (UA) 100 mg/dL (Negative) H 05/20/24 11:30 Urine Ketones Trace mg/dL (Negative) 05/20/24 11:30 Urine Blood Large (3+) (Negative) H 05/20/24 11:30 Urine Nitrite Positive (Negative) H 05/20/24 11:30 Ur Leukocyte Esterase Moderate (2+) (Negative) H 05/20/24 11:30 Urine RBC >20 /HPF (0-2) H 05/20/24 11:30 Urine WBC >50 /HPF (0-5) 05/20/24 11:30 Ur Squamous Epith Cells 3-5 /HPF (0-2) 05/20/24 11:30 Other Crystals Present 05/20/24 11:30 Urine Bacteria Trace (None Seen) 05/20/24 11:30 Hyaline Casts 0-2 /LPF (0-2) 05/20/24 11:30 Influenza Type A (PCR) NEGATIVE (Negative) 05/20/24 10:19 Influenza Type B (PCR) NEGATIVE (Negative) 05/20/24 10:19 RSV RNA Qual (PCR) NEGATIVE (Negative) 05/20/24 10:19 SARS-CoV-2 RNA (RT-PCR) NEGATIVE (Negative) 05/20/24 10:19 Blood Type AB Negative 05/20/24 10:19 Antibody Screen NEGATIVE 05/20/24 10:19 Impressions Chest X-Ray 05/20/24 09:39 IMPRESSION: Left basilar airspace disease as above. Trace left-sided pleural effusion. Electronically signed by: Mamadou Calero MD 05/20/2024 10:48 AM EST RP Abdomen/Pelvis CT 05/20/24 11:16 IMPRESSION: 1. There are multiple distended proximal and mid small bowel loops, with relative decompression of the distal small bowel and colon. Findings suggest a distal small bowel obstruction. No free intraperitoneal air is seen. 2. There is cholelithiasis. 3. Nonobstructing left renal calculi are seen. No further urinary calculus is seen, and there is no obstructive uropathy. 4. There are layering urinary bladder calculi. The urinary bladder is decompressed by Moreau catheter and shows mild wall thickening, possibly infectious or inflammatory in etiology, versus pseudothickening from suboptimal filling. Recommend correlation with the patient's most recent urinalysis. 5. There are small fat-containing bilateral inguinal hernias. 6. There is mild prostatomegaly. 7. There is marked degenerative disc disease extending from L2-3 through L5-S1. 8. There are bibasilar atelectatic foci. There are pleural calcifications, suggesting prior asbestos exposure. Scant bilateral pleural effusions are seen. 9. Coronary artery atherosclerotic calcifications are noted. Fleischner guidelines were followed. Electronically signed by: Rolan Mayfield MD 05/20/2024 01:40 PM EST RP Assessment and Plan (1) Coffee ground emesis: Status: Acute 78 year-old male with multiple medical problems as described above, admitted for coffee-ground emesis here in the ER. His CT scan report describes small bowel dilatation proximally. However, clinically he does not present with obstruction. I do not see any transition point in his CAT scan and he has good amounts of air in the colon. His abdomen is very soft and benign. He looks well overall. He has other ongoing issues including pneumonia, and UTI. He may there were be having some degree of small-bowel ileus as well . He can be tried on clear liquid diet can be slowly advanced. If he presents with evidence of obstruction, we may order for a small bowel series although it does not appear to be necessary at this time His coffee-ground emesis may be secondary to him being on anticoagulation. I am uncertain if he has had an upper GI endoscopy in the past. I will follow along while he is in the hospital. He is otherwise hemodynamically stable and has a very benign exam. Procedures Date of Service Date of Service: 05/21/24
[2024-05-20] MEDS: Lactated Ringers 1,000 ML 80 ML IVCONT (14:47)
[2024-05-20] MEDS: 0.9 % Sodium Chloride Flush 3 ML SYRINGE IVFLUSH (14:54)
--- NOTE | 2024-05-20 14:57 | P.HPHOSP_ITS ---
History of Present Illness Date of Service: 05/20/24 Attending physician on admission: Claude Rodríguez Chief Complaint: coffee ground emesis 78 y/o M with pmhx of unspecified dementia with mood disorder, BPH with LUTS and chronic Moreau, paroxysmal atrial fibrillation anticoagulated with Eliquis, hypertension, GERD, osteoarthritis, history MRSA UTI/bacteremia, and moderate protein calorie malnutrition, poor historian -information given by Ed physician : sent to ed due to coffee-ground emesis,? Some worsening mentation, has some dried brown material on the teeth. Patient poor historian-does not give much information, but able to say no shortness a breath, does not say if much abdominal discomfort, does not seem to endorse much pain on abdominal palpation. Unable to tell if his passing bowels. Did not cough during my examination. labs , imaging ,ekg reviewed : wbc 11.2 h/h: 10.2/31.3 bun/cr : 82/2.68. cxr:Left basilar airspace disease as above. Trace left-sided pleural effusion. ct abd:There are multiple distended proximal and mid small bowel loops, with relative decompression of the distal small bowel and colon. Findings suggest a distal small bowel obstruction. The urinary bladder is decompressed by Moreau catheter and shows mild wall thickening, possibly infectious or inflammatory in etiology, versus pseudothickening from suboptimal filling. ekg:Sinus rhythm with occasional Premature ventricular complexes. patient received ivf ,antibiotics , ppi and seen by surgery for ?sbo on ct abd :patient abd exam seems benign and ct abd reviewed by surgery -not see any transition point in his CAT scan and he has good amounts of air in the colon-so dobut about clinically obstruction. Review of Systems 2 Review of Systems: Yes all other systems are reviewed and are negative [facility] Medical History Coffee ground emesis History of rotator cuff syndrome Tricuspid regurgitation Multiple falls COVID-19 SIRS (systemic inflammatory response syndrome) 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 Polyosteoarthritis Metabolic encephalopathy Depression Anxiety Mood disturbance Vitamin B deficiency Chronic indwelling Moreau catheter GERD (gastroesophageal reflux disease) HTN (hypertension) MRSA bacteremia BPH (benign prostatic hyperplasia) 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 Atrial fibrillation Dementia Social History Household Members: Other Housing: [facility] Are you a primary complex care nurse to a significant other at home: No Do you presently have visiting nurse or other home services: No Unable to assess alcohol history related to: Unable to respond Alcohol intake: never Comment: 1:2 sitter in room Patient Tobacco Use Status: Tobacco use Unknown Smoked in Last 30 Days: No Second Hand Smoke Exposure: No Use of substances other than those prescribed or required for medical reasons: No Advance Directives: Yes Advance Directives Information Provided: No Advance Directives on File: No Advance Directives Date on File: 06/14/23 Do you have a plan to hurt others: No Plan service: No Current occupational status: disabled Meds Allergies Allergy/AdvReac Type Severity Reaction Status Date / Time No Known Allergies Allergy Verified 05/20/24 09:29 Active Medications: Current Medications Acetaminophen (Acetaminophen 325 Mg Tablet) 650 mg PO Q6H PRN PRN Reason: Pain, Mild (Pain Scale 1-3), fever or headache Calcium Carbonate (Calcium Carbonate 750 Mg Tab.Chew) 750 mg PO Q4H PRN PRN Reason: Heartburn Ceftriaxone Sodium (Ceftriaxone Sodium 1 Gm Vial) 1 gm IVPUSH Q24H [facility] Cyanocobalamin (Cyanocobalamin (Vitamin B-12) 1,000 Mcg Tablet) 1,000 mcg PO DAILY [facility] Finasteride (Finasteride 5 Mg Tablet) 5 mg PO DAILY [facility] Lactated Ringer's (Lr) 1,000 mls @ 80 mls/hr IVCONT .[id number] [facility] Last Admin: 05/20/24 14:47 Dose: 80 mls/hr Azithromycin 500 mg/ Sodium (Chloride) 250 mls @ 125 mls/hr IV Q24H [facility] Magnesium Hydroxide (Milk Of Magnesia 30 Ml Oral.Susp) 30 ml PO DAILY PRN PRN Reason: Constipation Melatonin (Melatonin 3 Mg Tablet) 6 mg PO BEDTIME PRN PRN Reason: Insomnia Mirtazapine (Mirtazapine 15 Mg Tablet) 15 mg PO BEDTIME [facility] Mupirocin (Mupirocin 2 % Oint 22 Gm Tube) 1 appl TOPICAL BID [facility]; Protocol Pantoprazole Sodium (Pantoprazole Sodium 40 Mg/10 Ml Vial) 40 mg IVPUSH BID [facility] Sodium Chloride (0.9 % Sodium Chloride Flush 3 Ml Syringe) 3 ml IVFLUSH QSHIFT [facility] Last Admin: 05/20/24 14:54 Dose: 3 ml Trazodone HCl (Trazodone Hcl 25 Mg Halftab) 25 mg PO BEDTIME [facility] Home Medications ?Medication ?Instructions ?Recorded ?Confirmed ?Last Taken ?Type apixaban 2.5 mg tablet (Eliquis) 2.5 mg PO BID 08/03/22 05/20/24 04/04/24 History cyanocobalamin (vitamin B-12) 1,000 mcg PO DAILY 08/03/22 05/20/24 Unknown History 1,000 mcg tablet famotidine 20 mg tablet 20 mg PO BID 08/03/22 05/20/24 Unknown History finasteride 5 mg tablet 5 mg PO DAILY 08/03/22 05/20/24 Unknown History acetaminophen 325 mg tablet 650 mg PO Q6H PRN Fever Or Pain 02/18/23 05/20/24 Unknown History (Tylenol) bisacodyl 10 mg rectal suppository 10 mg TN DAILY PRN Constipation 02/18/23 05/20/24 Unknown History magnesium hydroxide 400 mg/5 mL 30 ml PO DAILY PRN Constipation 02/18/23 05/20/24 Unknown History oral suspension (Milk of Magnesia) sennosides 8.6 mg-docusate sodium 1 tab-cap PO BID 02/18/23 05/20/24 Unknown History 50 mg tablet (Senna with Docusate Sodium) sodium phosphates 19 gram-7 118 ml TN DAILY PRN Constipation 02/18/23 05/20/24 Unknown History gram/118 mL enema (Fleet Enema) methenamine hippurate 1 gram tablet 1 g PO BID 03/17/24 05/20/24 Unknown History mirtazapine 15 mg tablet (Remeron) 15 mg PO BEDTIME 03/17/24 05/20/24 Unknown History trazodone 50 mg tablet 25 mg PO BEDTIME 03/17/24 05/20/24 Unknown History Lactobacillus acidophilus 10,000 mmu cells PO DAILY 05/20/24 05/20/24 Unknown History (Acidophilus capsule) mupirocin 2 % topical ointment 1 appl topical BID 05/20/24 05/20/24 Unknown History naproxen 375 mg tablet 375 mg PO BID PRN Pain (Scale 05/20/24 05/20/24 Unknown History Score 1-3) Physical Exam 2 Vital Signs and Narrative: Vital Signs: Last Vital Signs Temp 98 F 05/20/24 11:32 Pulse 65 05/20/24 14:33 Resp 17 05/20/24 14:33 BP 107/70 05/20/24 14:33 Pulse Ox 96 05/20/24 14:33 O2 Del Method Room Air 05/20/24 14:33 BMI result Body Mass Index 17.8 exam limted due to patient coopertion. Appearance: awake , knows his name ,says daytime ? ENT: Pharynx normal.? Moist mucous membranes seems dry. cvs: rrr, [id number]. res: air entry fair ,diminshed at bases. abd: Nt, BS present ,does not seems rebound. ext pulses present , no cyanosis neuro: axo3 , nonfocal. Results Labs 05/20/24 10:19 05/20/24 10:19 Labs: Laboratory Results - last 24 hr 05/20/24 05/20/24 10:19 11:30 MCV 93.7 MCH 30.8 MCHC 32.9 RDW 14.6 Plt Count 342 MPV 10.0 Immature Gran % (Auto) 0.4 Neut % (Auto) 75.0 H Lymph % (Auto) 15.4 L [place] % (Auto) 8.0 Eos % (Auto) 0.8 Baso % (Auto) 0.4 Lymph # (Auto) 1.7 [place] # (Auto) 0.9 Eos # (Auto) 0.1 Baso # (Auto) 0.0 Abs Immat Gran (auto) 0.04 H Absolute Neuts (auto) 8.4 H Absolute Nucleated RBC 0.000 Nucleated RBC % (auto) 0.0 PT 16.7 H INR 1.4 H Anion Gap 16 Estim Creat Clear Calc 16.0 Estimated GFR 23 Random Glucose 97 Lactic Acid 1.1 Calcium 9.0 D Magnesium 2.2 Total Bilirubin 0.6 Direct Bilirubin 0.3 AST 35 ALT 12 Alkaline Phosphatase 68 Troponin I High Sens 3.9 D Total Protein 7.0 Albumin 3.4 L Lipase 37 Urine Color BROWN Urine Appearance Turbid Urine pH 5.5 Ur Specific [place] 1.020 Urine Protein 100 (2+) H Urine Glucose (UA) 100 H Urine Ketones Trace Urine Blood Large (3+) H Urine Nitrite Positive H Ur Leukocyte Esterase Moderate (2+) H Urine RBC >20 H Urine WBC >50 Ur Squamous Epith Cells 3-5 Other Crystals Present Urine Bacteria Trace Hyaline Casts 0-2 Influenza Type A (PCR) NEGATIVE Influenza Type B (PCR) NEGATIVE RSV RNA Qual (PCR) NEGATIVE SARS-CoV-2 RNA (RT-PCR) NEGATIVE Blood Type AB Negative Antibody Screen NEGATIVE Imaging Radiologist's Impressions: Impressions Chest X-Ray 05/20/24 09:39 IMPRESSION: Left basilar airspace disease as above. Trace left-sided pleural effusion. Electronically signed by: Mamadou Calero MD 05/20/2024 10:48 AM EST RP Abdomen/Pelvis CT 05/20/24 11:16 IMPRESSION: 1. There are multiple distended proximal and mid small bowel loops, with relative decompression of the distal small bowel and colon. Findings suggest a distal small bowel obstruction. No free intraperitoneal air is seen. 2. There is cholelithiasis. 3. Nonobstructing left renal calculi are seen. No further urinary calculus is seen, and there is no obstructive uropathy. 4. There are layering urinary bladder calculi. The urinary bladder is decompressed by Moreau catheter and shows mild wall thickening, possibly infectious or inflammatory in etiology, versus pseudothickening from suboptimal filling. Recommend correlation with the patient's most recent urinalysis. 5. There are small fat-containing bilateral inguinal hernias. 6. There is mild prostatomegaly. 7. There is marked degenerative disc disease extending from L2-3 through L5-S1. 8. There are bibasilar atelectatic foci. There are pleural calcifications, suggesting prior asbestos exposure. Scant bilateral pleural effusions are seen. 9. Coronary artery atherosclerotic calcifications are noted. Fleischner guidelines were followed. Electronically signed by: Rolan Mayfield MD 05/20/2024 01:40 PM EST RP Assessment and Plan (1) SBO (small bowel obstruction): Status: Acute (2) Coffee ground emesis: Status: Acute (3) Left upper lobe pneumonia: Qualifiers: Pneumonia type: due to unspecified organism Qualified Code(s): J18.9 - Pneumonia, unspecified organism Status: Acute (4) DOUGLAS (acute kidney injury): Status: Acute Plan 78 y/o M with pmhx of unspecified dementia with mood disorder, BPH with LUTS and chronic Moreau, paroxysmal atrial fibrillation anticoagulated with Eliquis, hypertension, GERD, osteoarthritis, history MRSA UTI/bacteremia, and moderate protein calorie malnutrition, poor historian -information given by Ed physician : sent to ed due to coffee-ground emesis,? Some worsening mentation. coffee ground emesis h/h slightly down plan: iron studies ,b12/folate ,fobt. h/h monitering closely Gi eval- ppi, hydration, , clear liquid ,hold eliquis ct abd -?sbo seen by surgery : seems less likely clinically also ct abd reviewed by surgery-not see any transition point in his CAT scan and he has good amounts of air in the colon if new findings evidence of obstruction, we may order for a small bowel series although it does not appear to be necessary at this time . plan:clear liquid diet , moniter clinically. pneumonia :? aspirational component ( due to vomiting) lactic acid normal,blood cultures pending not sob not septic also abnormal ua -pyuria/bacteruria (? has catheter ch) plan: follow cultures continue iv antibiotics-iv doxy and zosyn (intiated on 05/20/24). afib ch: tele currently in sinus rythem hold eliquis due to ?gib Douglas:unclear etiology has 2+ proteinuria ?low po intake plan:added ivf , nephro eval. moderate protein calorie malnutrition: rn acute eval. patient will benefit from 2 midnight stays considering ? gib -need h/h monitering,ppi,iv antibiotics , moniter clinically closely,also need Gi and nephrology eval. Quality Stroke Does the patient have a stroke diagnosis?: No VTE Prior VTE?: No VTE Risk Level:: Medical - moderate - high VTE Device Contraindication: N/A - Device Ordered VTE Drug Contraindication: N/A - Med Ordered
--- NOTE | 2024-05-20 15:36 | P.CNGI_ITS ---
History of Present Illness Data of Consult Service Date: 05/20/24 Requesting physician: Claude Rodríguez Primary Care Provider: Rajesh Son MD HPI Reason for consult: ? GI bleed 78 yo male with PMH of dementia and mood disorder, BPH with chronic ornelas, PAF on eliquis, HTN, GERD, MRSA UTI/bacteremia who was brought to the hospital for altered mental status and coffee ground emesis. History was gathered from the chart. Roportedly his bed linen was noted to be stained with coffee grounds emesis this morning. No report of abd pain or melena to the facility staff. No vomiting since hes been here. Mental status reportedly at his baseline. Labs are significant for normocytic anemia, DOUGLAS with Cr of 2.7. Normal LFTs. UA with gross hematuria. CT suggestive of SBO vs ileus. At bedside assessment, pt somnolent but not in any overt discomfort. BP on the softer side. 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 Atrial fibrillation Dementia Social History Social History Household Members: Other Housing: [facility] Are you a primary resident care provider to a significant other at home: No Do you presently have visiting nurse or other home services: No Unable to assess alcohol history related to: Unable to respond Alcohol intake: never Comment: 1:2 sitter in room Patient Tobacco Use Status: Tobacco use Unknown Smoked in Last 30 Days: No Second Hand Smoke Exposure: No Use of substances other than those prescribed or required for medical reasons: No Advance Directives: Yes Advance Directives Information Provided: No Advance Directives on File: No Advance Directives Date on File: 06/14/23 Do you have a plan to hurt others: No Plan service: No Current occupational status: disabled Meds Allergies Allergy/AdvReac Type Severity Reaction Status Date / Time No Known Allergies Allergy Verified 05/20/24 09:29 Active Medications: Current Medications Acetaminophen (Acetaminophen 325 Mg Tablet) 650 mg PO Q6H PRN PRN Reason: Pain, Mild (Pain Scale 1-3), fever or headache Calcium Carbonate (Calcium Carbonate 750 Mg Tab.Chew) 750 mg PO Q4H PRN PRN Reason: Heartburn Ceftriaxone Sodium (Ceftriaxone Sodium 1 Gm Vial) 1 gm IVPUSH Q24H [facility] Cyanocobalamin (Cyanocobalamin (Vitamin B-12) 1,000 Mcg Tablet) 1,000 mcg PO DAILY [facility] Finasteride (Finasteride 5 Mg Tablet) 5 mg PO DAILY [facility] Lactated Ringer's (Lr) 1,000 mls @ 80 mls/hr IVCONT .[id number] [facility] Last Admin: 05/20/24 14:47 Dose: 80 mls/hr Azithromycin 500 mg/ Sodium (Chloride) 250 mls @ 125 mls/hr IV Q24H [facility] Magnesium Hydroxide (Milk Of Magnesia 30 Ml Oral.Susp) 30 ml PO DAILY PRN PRN Reason: Constipation Melatonin (Melatonin 3 Mg Tablet) 6 mg PO BEDTIME PRN PRN Reason: Insomnia Mirtazapine (Mirtazapine 15 Mg Tablet) 15 mg PO BEDTIME [facility] Mupirocin (Mupirocin 2 % Oint 22 Gm Tube) 1 appl TOPICAL BID [facility]; Protocol Pantoprazole Sodium (Pantoprazole Sodium 40 Mg/10 Ml Vial) 40 mg IVPUSH BID [facility] Sodium Chloride (0.9 % Sodium Chloride Flush 3 Ml Syringe) 3 ml IVFLUSH QSHIFT [facility] Last Admin: 05/20/24 14:54 Dose: 3 ml Trazodone HCl (Trazodone Hcl 25 Mg Halftab) 25 mg PO BEDTIME [facility] Home Medications ?Medication ?Instructions ?Recorded ?Confirmed ?Last Taken ?Type apixaban 2.5 mg tablet (Eliquis) 2.5 mg PO BID 08/03/22 05/20/24 04/04/24 History cyanocobalamin (vitamin B-12) 1,000 mcg PO DAILY 08/03/22 05/20/24 Unknown History 1,000 mcg tablet famotidine 20 mg tablet 20 mg PO BID 08/03/22 05/20/24 Unknown History finasteride 5 mg tablet 5 mg PO DAILY 08/03/22 05/20/24 Unknown History acetaminophen 325 mg tablet 650 mg PO Q6H PRN Fever Or Pain 02/18/23 05/20/24 Unknown History (Tylenol) bisacodyl 10 mg rectal suppository 10 mg MO DAILY PRN Constipation 02/18/23 05/20/24 Unknown History magnesium hydroxide 400 mg/5 mL 30 ml PO DAILY PRN Constipation 02/18/23 05/20/24 Unknown History oral suspension (Milk of Magnesia) sennosides 8.6 mg-docusate sodium 1 tab-cap PO BID 02/18/23 05/20/24 Unknown History 50 mg tablet (Senna with Docusate Sodium) sodium phosphates 19 gram-7 118 ml MO DAILY PRN Constipation 02/18/23 05/20/24 Unknown History gram/118 mL enema (Fleet Enema) methenamine hippurate 1 gram tablet 1 g PO BID 03/17/24 05/20/24 Unknown History mirtazapine 15 mg tablet (Remeron) 15 mg PO BEDTIME 03/17/24 05/20/24 Unknown History trazodone 50 mg tablet 25 mg PO BEDTIME 03/17/24 05/20/24 Unknown History Lactobacillus acidophilus 10,000 mmu cells PO DAILY 05/20/24 05/20/24 Unknown History (Acidophilus capsule) mupirocin 2 % topical ointment 1 appl topical BID 05/20/24 05/20/24 Unknown History naproxen 375 mg tablet 375 mg PO BID PRN Pain (Scale 05/20/24 05/20/24 Unknown History Score 1-3) Physical Exam 2 Vital Signs: Vital Signs: Last Vital Signs Temp 98 F 05/20/24 11:32 Pulse 65 05/20/24 14:33 Resp 17 05/20/24 14:33 BP 107/70 05/20/24 14:33 Pulse Ox 96 05/20/24 14:33 O2 Del Method Room Air 05/20/24 14:33 BMI result Body Mass Index 17.8 Appears younger than stated age Hard of hearing Abd soft, nontender, no guarding, nondistended A/Ox1 Results Labs 05/20/24 21:46 05/20/24 21:46 Labs: Short CBC 11/16/24 Range/Units 10:19 WBC 11.2 H (4.8-10.8) X10*3/uL Hgb 10.3 L (14.0-18.0) g/dl Hct 31.3 L (42.0-52.0) % Plt Count 342 (160-400) X10*3/uL BMP 05/20/24 10:19 Sodium 141 Potassium 4.3 Chloride 102 Carbon Dioxide 27 BUN 82 H Creatinine 2.68 H Calcium 9.0 D Liver Function 05/20/24 Range/Units 10:19 Total Bilirubin 0.6 (0.0-1.0) mg/dL Direct Bilirubin 0.3 (0.0-0.5) mg/dL AST 35 (5-37) U/L ALT 12 (0-40) U/L Alkaline Phosphatase 68 (39-117) U/L Albumin 3.4 L (3.5-5.0) g/dL Urine 05/20/24 Range/Units 11:30 Urine Color BROWN Urine Appearance Turbid Urine pH 5.5 (5.0-9.0) Ur Specific [place] 1.020 (1.005-1.025) Urine Protein 100 (2+) H (Neg-Trace) mg/dL Urine Glucose (UA) 100 H (Negative) mg/dL Imaging CT scan - abdomen: Radiologist's impression: A duodenal diverticulum is noted. There are multiple distended proximal and mid small bowel loops, one of the largest within the pelvis measuring 3.5 cm (3:65). There is relative decompression of distal small bowel loops, suggesting a distal small bowel obstruction. A transition point is questioned within the distal small bowel (3:57 and 6:29). There is moderate diverticulosis, without acute diverticulitis. No free intraperitoneal air is seen. The vermiform appendix is not identified with certainty; however, there is no finding to suggest appendicitis. Assessment and Plan (1) Coffee ground emesis: Status: Acute (2) DOUGLAS (acute kidney injury): Status: Acute (3) Obstructive uropathy: Status: Acute (4) Hematuria: Status: Acute (5) Chronic anticoagulation: Status: Acute Plan Overall clinical presentation more consistent with ileus likely from urosepsis. Abd exam benign and imaging shows air distal to the possible transition point mentioned. GI bleed appears to have been self limiting vs low grade based on labs. Ddx include esophagitis vs gastritis vs duodenitis vs stress ulcer vs PUD. Plan: - No indication for emergent EGD at this time - Sepsis management as per primary team - IV protonix 40 BID x 72h and can then transition to PO - Ok to hold anticoagulation for now. Can resume from GI standpoint if no further episodes of GI bleeding over next 24h. - Can be started on clear liquids. If unable to progress, recommend SBFT to r/o SBO. Thank you for allowing me to participate in his care. Pls do not hesitate to reach out for questions or concerns. Procedures Date of Service Date of Service: 05/20/24
[2024-05-20] MEDS: Doxycycline Hyclate 100 MG in 0.9 % Sodium Chloride 250 ML 166.67 MG IV (16:40)
[2024-05-20 17:00] LABS: Iron 40 mcg/dL (45-160); Percent Iron Saturation 19 % (15-50); Total Iron Binding Capacity 214 mcg/dL (228-428); Unsaturated Iron Binding 174 ug/dL
[2024-05-20 17:14] LABS: Ferritin 353 ng/mL (20-250)
--- NOTE | 2024-05-20 18:21 | PC.NURSE ---
sleeping, sb on monitor, nad, doxy infusing with LR maintenance fluids
[2024-05-20] MEDS: Piperacillin Sodium/Tazobactam 2.25 GM in 0.9 % Sodium Chloride 50 ML IV ×2 (19:53→23:49)
--- NOTE | 2024-05-20 21:10 | MHC.EDTECH ---
pt on side when bp taken, pt asked to reposition but pt refused and told this tech top go away and leave him alone
[2024-05-20 21:53] LABS: Hematocrit 22.7 % (42.0-52.0); Hemoglobin 7.4 g/dl (14.0-18.0); Mean Corpuscular HGB Conc 32.6 g/dl (31.0-36.0); Mean Corpuscular Hemoglobin 30.7 pg (27.0-33.0); Mean Corpuscular Volume 94.2 fL (80.0-98.0); Mean Platelet Volume 9.9 fL (9.4-12.4); Platelet Count 242 X10*3/uL (160-400); Red Blood Count 2.41 X10*6/uL (4.60-5.80); Red Cell Distribution Width 14.6 % (11.0-16.0); White Blood Count 7.1 X10*3/uL (4.8-10.8)
[2024-05-20 22:06] LABS: Anion Gap 16 (12-20); Blood Urea Nitrogen 73 mg/dL (9-16); Calcium 7.8 mg/dL (8.4-10.2); Carbon Dioxide 19 mmol/L (22-29); Chloride 110 mmol/L (96-108); Creatinine Clr Calc Pharmacy 18.9; Estimated Glomerular Filt Rate 28; Glucose Random 72 mg/dL (60-115); Potassium 4.2 mmol/L (3.3-5.1); Sodium 141 mmol/L (135-145)
[2024-05-20 22:06] LABS: Lactic Acid 0.4 mmol/L (0.5-2.0)
[2024-05-20] MEDS: Lactated Ringers 1,000 ML 999 ML IV (22:52)
[2024-05-20] MEDS: traZODone HCL 25 MG HALFTAB PO (23:49)
[2024-05-21] VITALS (12 sets, daily range): BP systolic 94–136; BP diastolic 50–71; PULSE 42–61; RESP 12–21; TEMP 35.9–36.8; O2SAT 96–100
[2024-05-21] MEDS: Mirtazapine 15 MG TABLET PO ×2 (00:01→20:54)
[2024-05-21] MEDS: 0.9 % Sodium Chloride Flush 3 ML SYRINGE IVFLUSH (04:15)
[2024-05-21] MEDS: Lactated Ringers 1,000 ML 80 ML IVCONT (04:15)
[2024-05-21] MEDS: Doxycycline Hyclate 100 MG in 0.9 % Sodium Chloride 250 ML 166.67 MG IV ×2 (05:30→16:18)
[2024-05-21 06:48] LABS: Anion Gap 18 (12-20); Blood Urea Nitrogen 71 mg/dL (9-16); Calcium 8.1 mg/dL (8.4-10.2); Carbon Dioxide 18 mmol/L (22-29); Chloride 110 mmol/L (96-108); Creatinine Clr Calc Pharmacy 18.8; Estimated Glomerular Filt Rate 28; Glucose Random 57 mg/dL (60-115); Potassium 4.2 mmol/L (3.3-5.1); Sodium 142 mmol/L (135-145)
[2024-05-21 07:18] LABS: Folate 13.8 ng/mL (> or = 4.0); Vitamin B12 1046 pg/mL (200-900)
[2024-05-21] MEDS: Piperacillin Sodium/Tazobactam 2.25 GM in 0.9 % Sodium Chloride 50 ML IV ×3 (07:30→18:00)
--- NOTE | 2024-05-21 07:30 | PC.NURSE ---
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 new iv started and wrapped with cling wrap re-checked the pt's poc and it was 50, tigered dr Lopez and got new orders for hypoglycemia protocol pt suprapubic catheter is draining well but the color is tea like with a tinge of blood
[2024-05-21] MEDS: Dextrose 10 % 250 ML 750 ML IV (08:17)
[2024-05-21 09:20] LABS: Glucose, Whole Blood 50 mg/dL (60-115)
[2024-05-21 09:20] LABS: Glucose, Whole Blood 144 mg/dL (60-115)
--- NOTE | 2024-05-21 09:45 | PC.NURSE ---
spoke with dr gonzalez in regards of the pt's hemoglobin dropping and the blood in the ornelas pt also transferred over to a hospital bed for comfort
[2024-05-21] MEDS: Pantoprazole Sodium 40 MG/10 ML VIAL IVPUSH ×2 (09:58→20:52)
[2024-05-21] MEDS: Cyanocobalamin (Vitamin B-12) 1,000 MCG TABLET 1000 MCG PO (09:58)
[2024-05-21] MEDS: Finasteride 5 MG TABLET PO (10:06)
--- NOTE | 2024-05-21 10:15 | HO.PM.IMPN ---
Subjective Subjective Date of Service: 05/21/24 Interval History: f/u on gib bleed, anemia, renal failure, ileus interval history: has no specific complaint, baseline confusion hypoglycemia this mornning Physical Exam Vital Signs: Vital Signs: Last Vital Signs Temp 96.6 F L 05/21/24 07:52 Pulse 54 05/21/24 07:52 Resp 16 05/21/24 07:52 BP 98/54 L 05/21/24 07:52 Pulse Ox 97 05/21/24 07:52 O2 Del Method Room Air 05/21/24 07:52 BMI result Body Mass Index 17.8 Const: Other: General: Awake alert, frail, not oriented Resp: CTA bilateral CVS: S1,S2,RRR GI: +BS, NT, no distention Skin: No rash Neuro: motor grossly intact Psych: appropriate affect Objective Data Active Medications Acetaminophen (Acetaminophen 325 Mg Tablet) 650 mg PO Q6H PRN PRN Reason: Pain, Mild (Pain Scale 1-3), fever or headache Calcium Carbonate (Calcium Carbonate 750 Mg Tab.Chew) 750 mg PO Q4H PRN PRN Reason: Heartburn Cyanocobalamin (Cyanocobalamin (Vitamin B-12) 1,000 Mcg Tablet) 1,000 mcg PO DAILY [facility] Last Admin: 05/21/24 09:58 Dose: 1,000 mcg Documented By: RAMIRO Finasteride (Finasteride 5 Mg Tablet) 5 mg PO DAILY [facility] Last Admin: 05/21/24 10:06 Dose: 5 mg Documented By: RAMIRO Glucose (Glucose Gel 15 Gm Gel..Gram.) 15 gm PO Q15M PRN; Protocol PRN Reason: per Hypoglycemia Standing Ord. Lactated Ringer's (Lr) 1,000 mls @ 80 mls/hr IVCONT .[id number] [facility] Last Admin: 05/21/24 04:15 Dose: 80 mls/hr Documented By: RAFAEL Piperacillin Sod/Tazobactam (Sod 2.25 gm/ Sodium Chloride) 50 mls @ 100 mls/hr IV Q6H [facility] Last Infusion: 05/21/24 08:20 Dose: Infused Documented By: RAMIRO Doxycycline Hyclate 100 mg/ (Sodium Chloride) 250 mls @ 166.67 mls/hr IV Q12H [facility] Last Infusion: 05/21/24 07:25 Dose: Infused Documented By: RAMIRO Dextrose (D10) 250 mls @ 750 mls/hr IV Q15M PRN; Protocol PRN Reason: per Hypoglycemia Standing Ord. Last Infusion: 05/21/24 08:42 Dose: Infused Documented By: RAMIRO Magnesium Hydroxide (Milk Of Magnesia 30 Ml Oral.Susp) 30 ml PO DAILY PRN PRN Reason: Constipation Melatonin (Melatonin 3 Mg Tablet) 6 mg PO BEDTIME PRN PRN Reason: Insomnia Mirtazapine (Mirtazapine 15 Mg Tablet) 15 mg PO BEDTIME [facility] Last Admin: 05/21/24 00:01 Dose: 15 mg Documented By: RAFAEL Mupirocin (Mupirocin 2 % Oint 22 Gm Tube) 1 appl TOPICAL BID [facility]; Protocol Last Admin: 05/20/24 23:49 Dose: Not Given Documented By: RAFAEL Non-Admin Reason: Med Not Available Pantoprazole Sodium (Pantoprazole Sodium 40 Mg/10 Ml Vial) 40 mg IVPUSH BID [facility] Last Admin: 05/21/24 09:58 Dose: 40 mg Documented By: RAMIRO Sodium Chloride (0.9 % Sodium Chloride Flush 3 Ml Syringe) 3 ml IVFLUSH QSHIFT [facility] Last Admin: 05/21/24 08:43 Dose: Not Given Documented By: RAMIRO Non-Admin Reason: IV Running Trazodone HCl (Trazodone Hcl 25 Mg Halftab) 25 mg PO BEDTIME [facility] Last Admin: 05/20/24 23:49 Dose: 25 mg Documented By: RAFAEL Labs 05/20/24 21:46 05/21/24 06:18 Labs: Laboratory Results - last 24 hr 05/20/24 05/20/24 05/20/24 10:19 11:30 21:45 MCV 93.7 MCH 30.8 MCHC 32.9 RDW 14.6 Plt Count 342 MPV 10.0 Immature Gran % (Auto) 0.4 Neut % (Auto) 75.0 H Lymph % (Auto) 15.4 L Green % (Auto) 8.0 Eos % (Auto) 0.8 Baso % (Auto) 0.4 Lymph # (Auto) 1.7 Green # (Auto) 0.9 Eos # (Auto) 0.1 Baso # (Auto) 0.0 Abs Immat Gran (auto) 0.04 H Absolute Neuts (auto) 8.4 H Absolute Nucleated RBC 0.000 Nucleated RBC % (auto) 0.0 Hold Purple Top PT 16.7 H INR 1.4 H Anion Gap 16 Estim Creat Clear Calc 16.0 Estimated GFR 23 POC Glucose Random Glucose 97 Lactic Acid 1.1 0.4 L Calcium 9.0 D Magnesium 2.2 Iron 40 L TIBC 214 L % Saturation 19 Unsat Iron Binding 174 Ferritin 353 H Total Bilirubin 0.6 Direct Bilirubin 0.3 AST 35 ALT 12 Alkaline Phosphatase 68 Troponin I High Sens 3.9 D Total Protein 7.0 Albumin 3.4 L Lipase 37 Vitamin B12 Folate Urine Color BROWN Urine Appearance Turbid Urine pH 5.5 Ur Specific Dixon 1.020 Urine Protein 100 (2+) H Urine Glucose (UA) 100 H Urine Ketones Trace Urine Blood Large (3+) H Urine Nitrite Positive H Ur Leukocyte Esterase Moderate (2+) H Urine RBC >20 H Urine WBC >50 Ur Squamous Epith Cells 3-5 Other Crystals Present Urine Bacteria Trace Hyaline Casts 0-2 Influenza Type A (PCR) NEGATIVE Influenza Type B (PCR) NEGATIVE RSV RNA Qual (PCR) NEGATIVE SARS-CoV-2 RNA (RT-PCR) NEGATIVE Blood Type AB Negative Antibody Screen NEGATIVE 05/20/24 05/21/24 05/21/24 21:46 06:18 07:53 MCV 94.2 MCH 30.7 MCHC 32.6 RDW 14.6 Plt Count 242 D MPV 9.9 Immature Gran % (Auto) Neut % (Auto) Lymph % (Auto) Green % (Auto) Eos % (Auto) Baso % (Auto) Lymph # (Auto) Green # (Auto) Eos # (Auto) Baso # (Auto) Abs Immat Gran (auto) Absolute Neuts (auto) Absolute Nucleated RBC 0.000 Nucleated RBC % (auto) 0.0 Hold Purple Top SEE NOTE PT INR Anion Gap 16 18 Estim Creat Clear Calc 18.9 18.8 Estimated GFR 28 28 POC Glucose 50 L* Random Glucose 72 57 L* Lactic Acid Calcium 7.8 L D 8.1 L Magnesium Iron TIBC % Saturation Unsat Iron Binding Ferritin Total Bilirubin Direct Bilirubin AST ALT Alkaline Phosphatase Troponin I High Sens Total Protein Albumin Lipase Vitamin B12 1046 H Folate 13.8 Urine Color Urine Appearance Urine pH Ur Specific Dixon Urine Protein Urine Glucose (UA) Urine Ketones Urine Blood Urine Nitrite Ur Leukocyte Esterase Urine RBC Urine WBC Ur Squamous Epith Cells Other Crystals Urine Bacteria Hyaline Casts Influenza Type A (PCR) Influenza Type B (PCR) RSV RNA Qual (PCR) SARS-CoV-2 RNA (RT-PCR) Blood Type Antibody Screen 05/21/24 09:15 MCV MCH MCHC RDW Plt Count MPV Immature Gran % (Auto) Neut % (Auto) Lymph % (Auto) Green % (Auto) Eos % (Auto) Baso % (Auto) Lymph # (Auto) Green # (Auto) Eos # (Auto) Baso # (Auto) Abs Immat Gran (auto) Absolute Neuts (auto) Absolute Nucleated RBC Nucleated RBC % (auto) Hold Purple Top PT INR Anion Gap Estim Creat Clear Calc Estimated GFR POC Glucose 144 H Random Glucose Lactic Acid Calcium Magnesium Iron TIBC % Saturation Unsat Iron Binding Ferritin Total Bilirubin Direct Bilirubin AST ALT Alkaline Phosphatase Troponin I High Sens Total Protein Albumin Lipase Vitamin B12 Folate Urine Color Urine Appearance Urine pH Ur Specific Dixon Urine Protein Urine Glucose (UA) Urine Ketones Urine Blood Urine Nitrite Ur Leukocyte Esterase Urine RBC Urine WBC Ur Squamous Epith Cells Other Crystals Urine Bacteria Hyaline Casts Influenza Type A (PCR) Influenza Type B (PCR) RSV RNA Qual (PCR) SARS-CoV-2 RNA (RT-PCR) Blood Type Antibody Screen Microbiology Microbiology Results: Microbiology 05/20/24 Unknown Urine Culture - Final Urine clean catch - Clean Catch Midstream Assessment and Plan (1) Coffee ground emesis: Status: Acute (2) SBO (small bowel obstruction): Status: Acute (3) DOUGLAS (acute kidney injury): Status: Acute (4) Hematuria: Status: Acute Plan 78/m with unspecified dementia with mood disorder, BPH with LUTS and chronic suprapubic cath, paroxysmal atrial fibrillation anticoagulated with Eliquis, HTN, GERD, osteoarthritis, history of MRSA UTI/bacteremia, and moderate protein calorie malnutrition, poor historian -information given by Ed physician : sent to ed due to coffee-ground emesis,? Some worsening mentation. coffee ground emesis /gib no active bleed h/h significantly down seen by gi: no indication for emergent egd IV PPI x 72 hrs, then PO transfuse npo after midnight hold eliquis ct abd -?sbo, seen by surgery no clinical sbo, possible ileus, conservative management advance diet as beth Asp Pneumonia continue Zosyn started 05/20 UTI--Zosyn, follow culture Hematuria--appear old blood in ornelas cath, monitor hypoglycemia- LR +Dextrose chronic afib, rate controlled currently in sinus rythem hold eliquis due to ?gib Douglas, likely pre renal from renal hypoperfusion, hypotension IVF + blood product, nephrology following Metabolci acidosis with , likely from renal failure -continue ivf and monitor closely moderate protein calorie malnutrition: 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 dvt prophylaxis: compressision device Quality Stroke Does the patient have a stroke diagnosis?: No VTE Prior VTE?: No VTE Risk Level:: Medical - moderate - high VTE Device Contraindication: N/A - Device Ordered VTE Drug Contraindication: N/A - Med Ordered
[2024-05-21 11:01] LABS: Glucose, Whole Blood 90 mg/dL (60-115)
[2024-05-21] MEDS: Dextrose 5 % and Lactated Ring 1,000 ML 125 ML IVCONT ×2 (11:13→20:51)
[2024-05-21] MEDS: Mupirocin 2 % Oint 22 GM TUBE 1 APPL TOPICAL ×2 (12:04→20:54)
[2024-05-21 12:40] LABS: Glucose, Whole Blood 103 mg/dL (60-115)
--- NOTE | 2024-05-21 13:22 | P.PNGS_ITS ---
Subjective Subjective Date of Service: 05/21/24 Interval history: Denies abdominal pain Says he feels well Seems to answer simple questions well Does not recall flatus or BMs Physical Exam 2 Vital Signs: Vital Signs: Last Vital Signs Temp 97.7 F 05/21/24 12:05 Pulse 42 L 05/21/24 12:05 Resp 16 05/21/24 12:05 BP 112/58 L 05/21/24 12:05 Pulse Ox 97 05/21/24 07:52 O2 Del Method Room Air 05/21/24 07:52 BMI result Body Mass Index 17.8 Const: General: comfortable and no acute distress Resp: Effort & Inspection: normal respiratory effort Cardio: Rate: bradycardic GI: Palpation (GI): Soft to palpation, not firm, nontender and no guarding Objective Data Active Medications Acetaminophen (Acetaminophen 325 Mg Tablet) 650 mg PO Q6H PRN PRN Reason: Pain, Mild (Pain Scale 1-3), fever or headache Calcium Carbonate (Calcium Carbonate 750 Mg Tab.Chew) 750 mg PO Q4H PRN PRN Reason: Heartburn Cyanocobalamin (Cyanocobalamin (Vitamin B-12) 1,000 Mcg Tablet) 1,000 mcg PO DAILY [facility] Last Admin: 05/21/24 09:58 Dose: 1,000 mcg Documented By: RAMIRO Finasteride (Finasteride 5 Mg Tablet) 5 mg PO DAILY [facility] Last Admin: 05/21/24 10:06 Dose: 5 mg Documented By: RAMIRO Glucose (Glucose Gel 15 Gm Gel..Gram.) 15 gm PO Q15M PRN; Protocol PRN Reason: per Hypoglycemia Standing Ord. Piperacillin Sod/Tazobactam (Sod 2.25 gm/ Sodium Chloride) 50 mls @ 100 mls/hr IV Q6H [facility] Last Infusion: 05/21/24 13:02 Dose: Infused Documented By: KAL Doxycycline Hyclate 100 mg/ (Sodium Chloride) 250 mls @ 166.67 mls/hr IV Q12H [facility] Last Infusion: 05/21/24 07:25 Dose: Infused Documented By: RAMIRO Dextrose (D10) 250 mls @ 750 mls/hr IV Q15M PRN; Protocol PRN Reason: per Hypoglycemia Standing Ord. Last Infusion: 05/21/24 08:42 Dose: Infused Documented By: RAMIRO Dextrose/Lactated Ringer's (D5lr) 1,000 mls @ 125 mls/hr IVCONT .Q8H [facility] Last Admin: 05/21/24 11:13 Dose: 125 mls/hr Documented By: RAMIRO Magnesium Hydroxide (Milk Of Magnesia 30 Ml Oral.Susp) 30 ml PO DAILY PRN PRN Reason: Constipation Melatonin (Melatonin 3 Mg Tablet) 6 mg PO BEDTIME PRN PRN Reason: Insomnia Mirtazapine (Mirtazapine 15 Mg Tablet) 15 mg PO BEDTIME [facility] Last Admin: 05/21/24 00:01 Dose: 15 mg Documented By: RAFAEL Mupirocin (Mupirocin 2 % Oint 22 Gm Tube) 1 appl TOPICAL BID [facility]; Protocol Last Admin: 05/21/24 12:04 Dose: 1 appl Documented By: RAMIRO Pantoprazole Sodium (Pantoprazole Sodium 40 Mg/10 Ml Vial) 40 mg IVPUSH BID [facility] Last Admin: 05/21/24 09:58 Dose: 40 mg Documented By: RAMIRO Sodium Chloride (0.9 % Sodium Chloride Flush 3 Ml Syringe) 3 ml IVFLUSH QSHIFT [facility] Last Admin: 05/21/24 08:43 Dose: Not Given Documented By: RAMIRO Non-Admin Reason: IV Running Trazodone HCl (Trazodone Hcl 25 Mg Halftab) 25 mg PO BEDTIME [facility] Last Admin: 05/20/24 23:49 Dose: 25 mg Documented By: RAFAEL Labs 05/20/24 21:46 05/21/24 06:18 Labs: Laboratory Results - last 24 hr 05/20/24 05/20/24 05/20/24 10:19 21:45 21:46 MCV 94.2 MCH 30.7 MCHC 32.6 RDW 14.6 Plt Count 242 D MPV 9.9 Absolute Nucleated RBC 0.000 Nucleated RBC % (auto) 0.0 Hold Purple Top Anion Gap 16 Estim Creat Clear Calc 18.9 Estimated GFR 28 POC Glucose Random Glucose 72 Lactic Acid 0.4 L Calcium 7.8 L D Iron 40 L TIBC 214 L % Saturation 19 Unsat Iron Binding 174 Ferritin 353 H Vitamin B12 Folate Influenza Type A (PCR) NEGATIVE Influenza Type B (PCR) NEGATIVE RSV RNA Qual (PCR) NEGATIVE SARS-CoV-2 RNA (RT-PCR) NEGATIVE Blood Type AB Negative Antibody Screen NEGATIVE Crossmatch See Detail 05/21/24 05/21/24 05/21/24 06:18 07:53 09:15 MCV MCH MCHC RDW Plt Count MPV Absolute Nucleated RBC Nucleated RBC % (auto) Hold Purple Top SEE NOTE Anion Gap 18 Estim Creat Clear Calc 18.8 Estimated GFR 28 POC Glucose 50 L* 144 H Random Glucose 57 L* Lactic Acid Calcium 8.1 L Iron TIBC % Saturation Unsat Iron Binding Ferritin Vitamin B12 1046 H Folate 13.8 Influenza Type A (PCR) Influenza Type B (PCR) RSV RNA Qual (PCR) SARS-CoV-2 RNA (RT-PCR) Blood Type Antibody Screen Crossmatch 05/21/24 05/21/24 10:58 12:36 MCV MCH MCHC RDW Plt Count MPV Absolute Nucleated RBC Nucleated RBC % (auto) Hold Purple Top Anion Gap Estim Creat Clear Calc Estimated GFR POC Glucose 90 103 Random Glucose Lactic Acid Calcium Iron TIBC % Saturation Unsat Iron Binding Ferritin Vitamin B12 Folate Influenza Type A (PCR) Influenza Type B (PCR) RSV RNA Qual (PCR) SARS-CoV-2 RNA (RT-PCR) Blood Type Antibody Screen Crossmatch Microbiology Microbiology Results: Microbiology 05/20/24 11:03 Blood Culture - Preliminary Blood - Venous No growth after 24 hours. 05/20/24 10:56 Blood Culture - Preliminary Blood - Venous No growth after 24 hours. 05/20/24 Unknown Urine Culture - Final Urine clean catch - Clean Catch Midstream Procedures Date of Service Date of Service: 05/21/24 Progress Note: A&P Assessment and plan (1) Coffee ground emesis: Status: Acute Assessment and Plan: Hemoglobin 7.4 Getting blood transfusions Abdomen is soft and benign No vomiting GI follow up possible workup with endoscopy, colonoscopy Hold anticoagulation Looks comfortable overall Clinically does not have bowel obstruction Time Spent With Patient Time: Total time managing care of this patient today ____ minutes. Quality Stroke Does the patient have a stroke diagnosis?: No VTE Prior VTE?: No VTE Risk Level:: Medical - moderate - high VTE Device Contraindication: N/A - Device Ordered VTE Drug Contraindication: N/A - Med Ordered
--- NOTE | 2024-05-21 15:52 | MHC.CM.PN ---
PT IS A LTC RESIDENT OF [facility] LEFT FOR PTS [facility] SOLISROSANA [phone] PCP: [facility]
[2024-05-21 16:09] LABS: Glucose, Whole Blood 113 mg/dL (60-115)
[2024-05-21] MEDS: traZODone HCL 25 MG HALFTAB PO (20:54)
[2024-05-21 21:21] LABS: Glucose, Whole Blood 99 mg/dL (60-115)
[2024-05-22] MEDS: Piperacillin Sodium/Tazobactam 2.25 GM in 0.9 % Sodium Chloride 50 ML IV ×5 (00:34→23:47)
--- NOTE | 2024-05-22 02:15 | PC.NURSE ---
2013; Patient had 2 second pause- Dr Soliman notified- no new orders- continue to monitor per 021; Patient throughout night dropped HR to as low as 32- Dr Soliman made aware- no new orders
[2024-05-22 03:26] VITALS: BP 119/65; PULSE 46; RESP 18; TEMP 36.9; O2SAT 97
[2024-05-22] MEDS: Doxycycline Hyclate 100 MG in 0.9 % Sodium Chloride 250 ML 166.67 MG IV ×2 (04:34→16:48)
[2024-05-22] MEDS: Dextrose 5 % and Lactated Ring 1,000 ML 125 ML IVCONT ×2 (06:38→19:23)
[2024-05-22 07:23] LABS: Hematocrit 31.5 % (42.0-52.0); Hemoglobin 10.3 g/dl (14.0-18.0); Mean Corpuscular HGB Conc 32.7 g/dl (31.0-36.0); Mean Corpuscular Hemoglobin 30.4 pg (27.0-33.0); Mean Corpuscular Volume 92.9 fL (80.0-98.0); Mean Platelet Volume 10.3 fL (9.4-12.4); Platelet Count 259 X10*3/uL (160-400); Red Blood Count 3.39 X10*6/uL (4.60-5.80); Red Cell Distribution Width 14.7 % (11.0-16.0)
[2024-05-22 07:39] VITALS: BP 140/70; PULSE 45; RESP 18; TEMP 36.7; O2SAT 98
[2024-05-22 07:40] LABS: Anion Gap 12 (12-20); Blood Urea Nitrogen 51 mg/dL (9-16); Calcium 8.5 mg/dL (8.4-10.2); Carbon Dioxide 22 mmol/L (22-29); Chloride 111 mmol/L (96-108); Creatinine Clr Calc Pharmacy 21.5; Estimated Glomerular Filt Rate 32; Glucose Random 87 mg/dL (60-115); Potassium 3.5 mmol/L (3.3-5.1); Sodium 141 mmol/L (135-145)
[2024-05-22 07:44] LABS: Glucose, Whole Blood 86 mg/dL (60-115)
--- NOTE | 2024-05-22 08:55 | P.CONNP_ITS ---
History of Present Illness Reason for Consult Consult date: 05/22/24 Chief Complaint Chief complaint: ?sbo, coffee ground emesis History of Present Illness Narrative: 78 y/o male who lives in SNF with dementia, mood disorder, BPH, chronic ornelas, paroxysmal afib, HTN, GERD, OM, protein calorie malnutrition presented 05/20 with coffee ground emesis, worsening mentation. Being treated here for PNA, DOUGLAS, ileus, GIB, anemia Nephrology consulted for DOUGLAS creatinine 04/10 was 1.05 05/20 creatinine 2.68, has been trending down, today 05/22 is 2.00 UA suggesting UTI - culture showed mixed bacterial terry abdominal CT 05/20 with normal size/shape attenuation of kidneys, no obstruction or hydronephrouerter; bladder shows mild wall thickening receiving D5 and LR at 125mL/hr, as well as abx zosyn for asp pna 05/20 arrrival pt hypotensive lowest [employer] 86/50 of note, has naprosyn PRN on home med list Review of Systems Constitutional: Reports fatigue, Denies headache(s) and Reports poor appetite Denies dizziness and Denies headache(s) Cardiovascular: Denies chest pain, Denies leg edema and Denies dyspnea Respiratory: Denies dyspnea Gastrointestinal: Denies abdominal pain Genitourinary: Denies hematuria and Denies flank pain Comments: chronic ornelas in place Musculoskeletal: Denies arthralgias and Denies muscle cramps Skin/Breast: Denies rash Reports confusion, Denies dizziness and Denies headache(s) Psychiatric: Reports confusion Endocrine: Reports fatigue PMFSH Past Medical History Medical History Coffee ground emesis History of rotator cuff syndrome Tricuspid regurgitation Multiple falls COVID-19 SIRS (systemic inflammatory response syndrome) 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 Polyosteoarthritis Metabolic encephalopathy Depression Anxiety Mood disturbance Vitamin B deficiency Chronic indwelling Ornelas catheter GERD (gastroesophageal reflux disease) HTN (hypertension) MRSA bacteremia BPH (benign prostatic hyperplasia) Hx of mcc use of blood thinners Atrial fibrillation Dementia Social History Social History Household Members: Unknown / Unable to assess Housing: Unknown / Unable to assess Are you a primary home child care provider to a significant other at home: No Do you presently have visiting nurse or other home services: No Unable to assess alcohol history related to: Unable to respond Alcohol intake: never Comment: 1:2 sitter in room Patient Tobacco Use Status: Tobacco use Unknown Second Hand Smoke Exposure: No Advance Directives Date on File: 06/14/23 service: No Current occupational status: disabled Meds Allergies Allergy/AdvReac Type Severity Reaction Status Date / Time No Known Allergies Allergy Verified 05/20/24 09:29 Active Medications: Current Medications Acetaminophen (Acetaminophen 325 Mg Tablet) 650 mg PO Q6H PRN PRN Reason: Pain, Mild (Pain Scale 1-3), fever or headache Last Admin: 05/22/24 11:57 Dose: 650 mg Calcium Carbonate (Calcium Carbonate 750 Mg Tab.Chew) 750 mg PO Q4H PRN PRN Reason: Heartburn Cyanocobalamin (Cyanocobalamin (Vitamin B-12) 1,000 Mcg Tablet) 1,000 mcg PO DAILY [facility] Last Admin: 05/22/24 09:50 Dose: 1,000 mcg Finasteride (Finasteride 5 Mg Tablet) 5 mg PO DAILY [facility] Last Admin: 05/22/24 09:50 Dose: 5 mg Glucose (Glucose Gel 15 Gm Gel..Gram.) 15 gm PO Q15M PRN; Protocol PRN Reason: per Hypoglycemia Standing Ord. Piperacillin Sod/Tazobactam (Sod 2.25 gm/ Sodium Chloride) 50 mls @ 100 mls/hr IV Q6H [facility] Last Infusion: 05/22/24 12:26 Dose: Infused Doxycycline Hyclate 100 mg/ (Sodium Chloride) 250 mls @ 166.67 mls/hr IV Q12H [facility] Last Infusion: 05/22/24 06:04 Dose: Infused Dextrose (D10) 250 mls @ 750 mls/hr IV Q15M PRN; Protocol PRN Reason: per Hypoglycemia Standing Ord. Last Infusion: 05/21/24 08:42 Dose: Infused Dextrose/Lactated Ringer's (D5lr) 1,000 mls @ 125 mls/hr IVCONT .Q8H [facility] Last Admin: 05/22/24 11:55 Dose: Not Given Magnesium Hydroxide (Milk Of Magnesia 30 Ml Oral.Susp) 30 ml PO DAILY PRN PRN Reason: Constipation Melatonin (Melatonin 3 Mg Tablet) 6 mg PO BEDTIME PRN PRN Reason: Insomnia Mirtazapine (Mirtazapine 15 Mg Tablet) 15 mg PO BEDTIME [facility] Last Admin: 05/21/24 20:54 Dose: 15 mg Mupirocin (Mupirocin 2 % Oint 22 Gm Tube) 1 appl TOPICAL BID [facility]; Protocol Last Admin: 05/22/24 09:47 Dose: 1 appl Pantoprazole Sodium (Pantoprazole Sodium 40 Mg/10 Ml Vial) 40 mg IVPUSH BID [facility] Last Admin: 05/22/24 09:44 Dose: 40 mg Sodium Chloride (0.9 % Sodium Chloride Flush 3 Ml Syringe) 3 ml IVFLUSH QSHIFT [facility] Last Admin: 05/22/24 09:43 Dose: 3 ml Trazodone HCl (Trazodone Hcl 25 Mg Halftab) 25 mg PO BEDTIME [facility] Last Admin: 05/21/24 20:54 Dose: 25 mg Home Medications ?Medication ?Instructions ?Recorded ?Confirmed ?Last Taken ?Type apixaban 2.5 mg tablet (Eliquis) 2.5 mg PO BID 08/03/22 05/20/24 04/04/24 History cyanocobalamin (vitamin B-12) 1,000 mcg PO DAILY 08/03/22 05/20/24 Unknown History 1,000 mcg tablet famotidine 20 mg tablet 20 mg PO BID 08/03/22 05/20/24 Unknown History finasteride 5 mg tablet 5 mg PO DAILY 08/03/22 05/20/24 Unknown History acetaminophen 325 mg tablet 650 mg PO Q6H PRN Fever Or Pain 02/18/23 05/20/24 Unknown History (Tylenol) bisacodyl 10 mg rectal suppository 10 mg OR DAILY PRN Constipation 02/18/23 05/20/24 Unknown History magnesium hydroxide 400 mg/5 mL 30 ml PO DAILY PRN Constipation 02/18/23 05/20/24 Unknown History oral suspension (Milk of Magnesia) sennosides 8.6 mg-docusate sodium 1 tab-cap PO BID 02/18/23 05/20/24 Unknown History 50 mg tablet (Senna with Docusate Sodium) sodium phosphates 19 gram-7 118 ml OR DAILY PRN Constipation 02/18/23 05/20/24 Unknown History gram/118 mL enema (Fleet Enema) methenamine hippurate 1 gram tablet 1 g PO BID 03/17/24 05/20/24 Unknown History mirtazapine 15 mg tablet (Remeron) 15 mg PO BEDTIME 03/17/24 05/20/24 Unknown History trazodone 50 mg tablet 25 mg PO BEDTIME 03/17/24 05/20/24 Unknown History Lactobacillus acidophilus 10,000 mmu cells PO DAILY 05/20/24 05/20/24 Unknown History (Acidophilus capsule) mupirocin 2 % topical ointment 1 appl topical BID 05/20/24 05/20/24 Unknown History naproxen 375 mg tablet 375 mg PO BID PRN Pain (Scale 05/20/24 05/20/24 Unknown History Score 1-3) Physical Exam Vital Signs: Last Vital Signs Temp 98.6 F 05/22/24 12:03 Pulse 57 05/22/24 12:03 Resp 18 05/22/24 12:03 BP 162/88 H 05/22/24 12:03 Pulse Ox 96 05/22/24 12:03 O2 Del Method Room Air 05/22/24 12:03 BMI result Body Mass Index 17.8 Const General: no acute distress, alert, awake and confusion Orientation/consciousness: confusion Resp Effort & Inspection: normal respiratory effort and able to speak in complete sentences Auscultation: clear to auscultation bilaterally Cardio Jugular venous distension: no JVD Palpation: normal PMI Rate: regular rate Rhythm: regular rhythm Heart sounds: S1 normal heart sound present and S2 normal heart sound present GI Palpation (GI): Soft to palpation and nontender General: Yes no CVA tenderness Back/Spine/Pelvis Back: no CVA tenderness Skin Lesions: no lesions Rashes: no rashes Neuro General: confusion Extrem General: No edema Results Lab Results 05/22/24 13:55 05/22/24 05:33 Lab results: Chemistry 05/20/24 05/20/24 05/21/24 10:19 21:46 06:18 Sodium 141 141 142 Potassium 4.3 4.2 4.2 Carbon Dioxide 27 19 L 18 L BUN 82 H 73 H 71 H Creatinine 2.68 H 2.27 H 2.28 H Calcium 9.0 D 7.8 L D 8.1 L 05/22/24 05:33 Sodium 141 Potassium 3.5 Carbon Dioxide 22 BUN 51 H Creatinine 2.00 H Calcium 8.5 Hematology 05/20/24 05/20/24 05/22/24 10:19 21:46 05:33 WBC 11.2 H 7.1 7.0 Hgb 10.3 L 7.4 L D 10.3 L D Plt Count 342 242 D 259 05/22/24 13:55 WBC 6.7 Hgb 10.4 L Plt Count 260 Urinalysis 05/20/24 11:30 Urine Color BROWN Urine Appearance Turbid Urine pH 5.5 Ur Specific [place] 1.020 Urine Protein 100 (2+) H Urine Glucose (UA) 100 H Urine Ketones Trace Urine Blood Large (3+) H Urine Nitrite Positive H Ur Leukocyte Esterase Moderate (2+) H Urine RBC >20 H Urine WBC >50 Ur Squamous Epith Cells 3-5 Hyaline Casts 0-2 Assessment and Plan (1) DOUGLAS (acute kidney injury): Status: Acute Plan DOUGLAS likely tubular injury, secondary volume depletion/hypoperfusion if received naprosyn prior to admission, this would have contributed to DOUGLAS as well creatinine is improving, continue IVF as ordered (125mL/hr D5 and LR) will get updated urine culture as most recent contaminated avoid hypotension avoid nephrotoxins recommend daily electrolyte and renal function testing will continue to follow Discussed with Dr Butterfield Procedures Date of Service Date of Service: 05/22/24
--- NOTE | 2024-05-22 09:00 | PM.PNGS ---
Subjective Subjective Date of Service: 05/22/24 Interval history: Denies abdominal pain Denies vomiting No events reported Patient not a very good historian Physical Exam Vital Signs: Vital Signs: Last Vital Signs Temp 98.1 F 05/22/24 07:39 Pulse 45 L 05/22/24 07:39 Resp 18 05/22/24 07:39 BP 140/70 H 05/22/24 07:39 Pulse Ox 98 05/22/24 07:39 O2 Del Method Room Air 05/22/24 07:39 BMI result Body Mass Index 17.8 Const: General: comfortable and no acute distress Resp: Effort & Inspection: normal respiratory effort Cardio: Rate: regular rate GI: Palpation (GI): Soft to palpation, not firm, nontender and no guarding Objective Data Active Medications Acetaminophen (Acetaminophen 325 Mg Tablet) 650 mg PO Q6H PRN PRN Reason: Pain, Mild (Pain Scale 1-3), fever or headache Calcium Carbonate (Calcium Carbonate 750 Mg Tab.Chew) 750 mg PO Q4H PRN PRN Reason: Heartburn Cyanocobalamin (Cyanocobalamin (Vitamin B-12) 1,000 Mcg Tablet) 1,000 mcg PO DAILY [facility] Last Admin: 05/21/24 09:58 Dose: 1,000 mcg Documented By: RAMIRO Finasteride (Finasteride 5 Mg Tablet) 5 mg PO DAILY [facility] Last Admin: 05/21/24 10:06 Dose: 5 mg Documented By: RAMIRO Glucose (Glucose Gel 15 Gm Gel..Gram.) 15 gm PO Q15M PRN; Protocol PRN Reason: per Hypoglycemia Standing Ord. Piperacillin Sod/Tazobactam (Sod 2.25 gm/ Sodium Chloride) 50 mls @ 100 mls/hr IV Q6H [facility] Last Infusion: 05/22/24 06:45 Dose: Infused Documented By: NICKY Doxycycline Hyclate 100 mg/ (Sodium Chloride) 250 mls @ 166.67 mls/hr IV Q12H [facility] Last Infusion: 05/22/24 06:04 Dose: Infused Documented By: NICKY Dextrose (D10) 250 mls @ 750 mls/hr IV Q15M PRN; Protocol PRN Reason: per Hypoglycemia Standing Ord. Last Infusion: 05/21/24 08:42 Dose: Infused Documented By: RAMIRO Dextrose/Lactated Ringer's (D5lr) 1,000 mls @ 125 mls/hr IVCONT .Q8H [facility] Last Admin: 05/22/24 06:38 Dose: 125 mls/hr Documented By: NICKY Magnesium Hydroxide (Milk Of Magnesia 30 Ml Oral.Susp) 30 ml PO DAILY PRN PRN Reason: Constipation Melatonin (Melatonin 3 Mg Tablet) 6 mg PO BEDTIME PRN PRN Reason: Insomnia Mirtazapine (Mirtazapine 15 Mg Tablet) 15 mg PO BEDTIME [facility] Last Admin: 05/21/24 20:54 Dose: 15 mg Documented By: NICKY Mupirocin (Mupirocin 2 % Oint 22 Gm Tube) 1 appl TOPICAL BID [facility]; Protocol Last Admin: 05/21/24 20:54 Dose: 1 appl Documented By: NICKY Pantoprazole Sodium (Pantoprazole Sodium 40 Mg/10 Ml Vial) 40 mg IVPUSH BID [facility] Last Admin: 05/21/24 20:52 Dose: 40 mg Documented By: NICKY Sodium Chloride (0.9 % Sodium Chloride Flush 3 Ml Syringe) 3 ml IVFLUSH QSHIFT [facility] Last Admin: 05/22/24 01:07 Dose: Not Given Documented By: NICKY Non-Admin Reason: IV Running Trazodone HCl (Trazodone Hcl 25 Mg Halftab) 25 mg PO BEDTIME [facility] Last Admin: 05/21/24 20:54 Dose: 25 mg Documented By: NICKY Labs 05/22/24 05:33 05/22/24 05:33 Labs: Laboratory Results - last 24 hr 05/20/24 05/21/24 05/21/24 10:19 07:53 09:15 MCV MCH MCHC RDW Plt Count MPV Absolute Nucleated RBC Nucleated RBC % (auto) Anion Gap Estim Creat Clear Calc Estimated GFR POC Glucose 50 L* 144 H Random Glucose Calcium Blood Type AB Negative Antibody Screen NEGATIVE Crossmatch See Detail 05/21/24 05/21/24 05/21/24 10:58 12:36 16:04 MCV MCH MCHC RDW Plt Count MPV Absolute Nucleated RBC Nucleated RBC % (auto) Anion Gap Estim Creat Clear Calc Estimated GFR POC Glucose 90 103 113 Random Glucose Calcium Blood Type Antibody Screen Crossmatch 05/21/24 05/22/24 05/22/24 21:16 05:33 07:37 MCV 92.9 MCH 30.4 MCHC 32.7 RDW 14.7 Plt Count 259 MPV 10.3 Absolute Nucleated RBC 0.000 Nucleated RBC % (auto) 0.0 Anion Gap 12 Estim Creat Clear Calc 21.5 Estimated GFR 32 POC Glucose 99 86 Random Glucose 87 Calcium 8.5 Blood Type Antibody Screen Crossmatch Microbiology Microbiology Results: Microbiology 05/20/24 11:03 Blood Culture - Preliminary Blood - Venous No growth after 24 hours. 05/20/24 10:56 Blood Culture - Preliminary Blood - Venous No growth after 24 hours. 05/20/24 Unknown Urine Culture - Final Urine clean catch - Clean Catch Midstream Procedures Date of Service Date of Service: 05/22/24 Progress Note: A&P Assessment and plan (1) Coffee ground emesis: Status: Acute Assessment and Plan: Transfused yesterday, hemoglobin now up to 10 Clinically not obstructed Abdomen soft, benign nontender nondistended GI follow-up for anemia Looks well overall Hold anticoagulation for now Treat for other concurrent acute issues Time Spent With Patient Time: Total time managing care of this patient today ____ minutes. Quality Stroke Does the patient have a stroke diagnosis?: No VTE Prior VTE?: No VTE Risk Level:: Medical - moderate - high VTE Device Contraindication: N/A - Device Ordered VTE Drug Contraindication: N/A - Med Ordered
--- NOTE | 2024-05-22 09:06 | MHC.CM.PN ---
Addendum entered by Christina Junior RN 05/22/24 10:47: Per MD rounds patient not medically cleared for dc. CM will continue to follow. Original Note: IMM DELIVERED TO [facility]. COPY LEFT AT BEDSIDE.
[2024-05-22] MEDS: 0.9 % Sodium Chloride Flush 3 ML SYRINGE IVFLUSH ×3 (09:43→23:52)
[2024-05-22] MEDS: Pantoprazole Sodium 40 MG/10 ML VIAL IVPUSH ×2 (09:44→20:36)
[2024-05-22] MEDS: Mupirocin 2 % Oint 22 GM TUBE 1 APPL TOPICAL (09:47)
[2024-05-22] MEDS: Finasteride 5 MG TABLET PO (09:50)
[2024-05-22] MEDS: Cyanocobalamin (Vitamin B-12) 1,000 MCG TABLET 1000 MCG PO (09:50)
[2024-05-22 11:55] LABS: Glucose, Whole Blood 128 mg/dL (60-115)
[2024-05-22] MEDS: Acetaminophen 325 MG TABLET 650 MG PO (11:57)
[2024-05-22 12:03] VITALS: BP 162/88; PULSE 57; RESP 18; TEMP 37; O2SAT 96
--- NOTE | 2024-05-22 12:35 | HO.PM.IMPN ---
Subjective Subjective Date of Service: 05/22/24 Interval History: f/u on gib bleed, anemia, renal failure, ileus interval history: has no specific complaint, baseline confusion hypoglycemia this mornning Physical Exam Vital Signs: Vital Signs: Last Vital Signs Temp 98.6 F 05/22/24 12:03 Pulse 57 05/22/24 12:03 Resp 18 05/22/24 12:03 BP 162/88 H 05/22/24 12:03 Pulse Ox 96 05/22/24 12:03 O2 Del Method Room Air 05/22/24 12:03 BMI result Body Mass Index 17.8 Const: Other: General: Awake alert, frail, not oriented Resp: CTA bilateral CVS: S1,S2,RRR GI: +BS, NT, no distention Skin: No rash Neuro: motor grossly intact Psych: appropriate affect Objective Data Active Medications Acetaminophen (Acetaminophen 325 Mg Tablet) 650 mg PO Q6H PRN PRN Reason: Pain, Mild (Pain Scale 1-3), fever or headache Last Admin: 05/22/24 11:57 Dose: 650 mg Documented By: SHAHZAD Calcium Carbonate (Calcium Carbonate 750 Mg Tab.Chew) 750 mg PO Q4H PRN PRN Reason: Heartburn Cyanocobalamin (Cyanocobalamin (Vitamin B-12) 1,000 Mcg Tablet) 1,000 mcg PO DAILY [facility] Last Admin: 05/22/24 09:50 Dose: 1,000 mcg Documented By: SHAHZAD Finasteride (Finasteride 5 Mg Tablet) 5 mg PO DAILY [facility] Last Admin: 05/22/24 09:50 Dose: 5 mg Documented By: SHAHZAD Glucose (Glucose Gel 15 Gm Gel..Gram.) 15 gm PO Q15M PRN; Protocol PRN Reason: per Hypoglycemia Standing Ord. Piperacillin Sod/Tazobactam (Sod 2.25 gm/ Sodium Chloride) 50 mls @ 100 mls/hr IV Q6H [facility] Last Infusion: 05/22/24 12:26 Dose: Infused Documented By: SHAHZAD Doxycycline Hyclate 100 mg/ (Sodium Chloride) 250 mls @ 166.67 mls/hr IV Q12H [facility] Last Infusion: 05/22/24 06:04 Dose: Infused Documented By: NICKY Dextrose (D10) 250 mls @ 750 mls/hr IV Q15M PRN; Protocol PRN Reason: per Hypoglycemia Standing Ord. Last Infusion: 05/21/24 08:42 Dose: Infused Documented By: RAMIRO Dextrose/Lactated Ringer's (D5lr) 1,000 mls @ 125 mls/hr IVCONT .Q8H [facility] Last Admin: 05/22/24 11:55 Dose: Not Given Documented By: SHAHZAD Non-Admin Reason: IV Running Magnesium Hydroxide (Milk Of Magnesia 30 Ml Oral.Susp) 30 ml PO DAILY PRN PRN Reason: Constipation Melatonin (Melatonin 3 Mg Tablet) 6 mg PO BEDTIME PRN PRN Reason: Insomnia Mirtazapine (Mirtazapine 15 Mg Tablet) 15 mg PO BEDTIME [facility] Last Admin: 05/21/24 20:54 Dose: 15 mg Documented By: NICKY Mupirocin (Mupirocin 2 % Oint 22 Gm Tube) 1 appl TOPICAL BID [facility]; Protocol Last Admin: 05/22/24 09:47 Dose: 1 appl Documented By: SHAHZAD Pantoprazole Sodium (Pantoprazole Sodium 40 Mg/10 Ml Vial) 40 mg IVPUSH BID [facility] Last Admin: 05/22/24 09:44 Dose: 40 mg Documented By: SHAHZAD Sodium Chloride (0.9 % Sodium Chloride Flush 3 Ml Syringe) 3 ml IVFLUSH QSHIFT [facility] Last Admin: 05/22/24 09:43 Dose: 3 ml Documented By: SHAHZAD Trazodone HCl (Trazodone Hcl 25 Mg Halftab) 25 mg PO BEDTIME [facility] Last Admin: 05/21/24 20:54 Dose: 25 mg Documented By: NICKY Labs 05/22/24 05:33 05/22/24 05:33 Labs: Laboratory Results - last 24 hr 05/20/24 05/21/24 05/21/24 10:19 12:36 16:04 MCV MCH MCHC RDW Plt Count MPV Absolute Nucleated RBC Nucleated RBC % (auto) Anion Gap Estim Creat Clear Calc Estimated GFR POC Glucose 103 113 Random Glucose Calcium Blood Type AB Negative Antibody Screen NEGATIVE Crossmatch See Detail 05/21/24 05/22/24 05/22/24 21:16 05:33 07:37 MCV 92.9 MCH 30.4 MCHC 32.7 RDW 14.7 Plt Count 259 MPV 10.3 Absolute Nucleated RBC 0.000 Nucleated RBC % (auto) 0.0 Anion Gap 12 Estim Creat Clear Calc 21.5 Estimated GFR 32 POC Glucose 99 86 Random Glucose 87 Calcium 8.5 Blood Type Antibody Screen Crossmatch 05/22/24 11:47 MCV MCH MCHC RDW Plt Count MPV Absolute Nucleated RBC Nucleated RBC % (auto) Anion Gap Estim Creat Clear Calc Estimated GFR POC Glucose 128 H Random Glucose Calcium Blood Type Antibody Screen Crossmatch Microbiology Microbiology Results: Microbiology 05/20/24 11:03 Blood Culture - Preliminary Blood - Venous No growth after 24 hours. 05/20/24 10:56 Blood Culture - Preliminary Blood - Venous No growth after 24 hours. 05/20/24 Unknown Urine Culture - Final Urine clean catch - Clean Catch Midstream Assessment and Plan (1) Coffee ground emesis: Status: Acute (2) SBO (small bowel obstruction): Status: Acute (3) DOUGLAS (acute kidney injury): Status: Acute (4) Hematuria: Status: Acute Plan 78/m with unspecified dementia with mood disorder, BPH with LUTS and chronic suprapubic cath, paroxysmal atrial fibrillation anticoagulated with Eliquis, HTN, GERD, osteoarthritis, history of MRSA UTI/bacteremia, and moderate protein calorie malnutrition, poor historian -information given by Ed physician : sent to ed due to coffee-ground emesis,? Some worsening mentation. coffee ground emesis /gib no active bleed h/h better after 2 units of rbcs yesterday seen by gi:no EGD at the present IV PPI x 72 hrs, then PO liquid diet, NPO after midnight hold eliquis for now ct abd -?sbo, seen by surgery no clinical sbo, possible ileus, conservative management advance diet as beth, kub to reassess Asp Pneumonia continue Zosyn started 05/20 UTI--Zosyn, follow culture Hematuria--appear old blood in ornelas cath, monitor hypoglycemia- LR +Dextrose chronic afib, rate controlled currently in sinus rythem hold eliquis due to ?gib Douglas, likely pre renal from renal hypoperfusion, hypotension IVF + blood product, nephrology following Metabolci acidosis with , likely from renal failure, resolved. moderate protein calorie malnutrition: hse specialist nathaniel. dvt prophylaxis: compressision device Quality Stroke Does the patient have a stroke diagnosis?: No VTE Prior VTE?: No VTE Risk Level:: Medical - moderate - high VTE Device Contraindication: N/A - Device Ordered VTE Drug Contraindication: N/A - Med Ordered
[2024-05-22 14:06] LABS: Hematocrit 31.7 % (42.0-52.0); Hemoglobin 10.4 g/dl (14.0-18.0); Mean Corpuscular HGB Conc 32.8 g/dl (31.0-36.0); Mean Corpuscular Hemoglobin 30.2 pg (27.0-33.0); Mean Corpuscular Volume 92.2 fL (80.0-98.0); Mean Platelet Volume 9.6 fL (9.4-12.4); Platelet Count 260 X10*3/uL (160-400); Red Blood Count 3.44 X10*6/uL (4.60-5.80); Red Cell Distribution Width 14.9 % (11.0-16.0); White Blood Count 6.7 X10*3/uL (4.8-10.8)
[2024-05-22 15:11] VITALS: BMI 17.8
--- NOTE | 2024-05-22 15:21 | MHC.CLN ---
NUTRITION CONSULT FOR MALNUTRITION. DIET=CLEAR LIQUIDS DUE TO SBO. NO SIGNIFICANT WEIGHT CHANGE X ONE YEAR. QUALIFIES MODERATELY MALNOURISHED IN THE CONTEXT OF CHRONIC ILLNESS. FOLLOW FOR DIET ADVANCEMENT AND INTAKE. PATIENT MAY BENEFIT FROM NUTRITIONAL SUPPLEMENT. RECOMMEND ADD ENSURE TID WHEN ABLE TO PROVIDE 1050 KCALS, 60 G PROTEIN. SEE CLINICAL NUTRITION ASSESSMENT 05/22/24.
[2024-05-22 16:04] VITALS: BP 166/88; PULSE 60; RESP 18; TEMP 37; O2SAT 95
[2024-05-22 16:40] LABS: Glucose, Whole Blood 107 mg/dL (60-115)
[2024-05-22 18:55] LABS: Creatinine Urine 38.32 mg/dL; Total Protein Urine Random 22 mg/dL (<12)
[2024-05-22 19:32] VITALS: BP 163/85; PULSE 53; RESP 18; TEMP 36.5; O2SAT 97
[2024-05-22 20:22] LABS: Glucose, Whole Blood 98 mg/dL (60-115)
[2024-05-22] MEDS: Mirtazapine 15 MG TABLET PO (20:37)
[2024-05-22] MEDS: traZODone HCL 25 MG HALFTAB PO (20:37)
[2024-05-22 23:11] LABS: OBS Int Ctl Valid YES; OBS1 POSITIVE (NEGATIVE)
[2024-05-22 23:52] VITALS: BP 137/82; PULSE 60; RESP 18; TEMP 36.7; O2SAT 98
[2024-05-23 03:37] VITALS: BP 128/62; PULSE 62; RESP 18; TEMP 36.4; O2SAT 94
[2024-05-23] MEDS: Doxycycline Hyclate 100 MG in 0.9 % Sodium Chloride 250 ML 166.67 MG IV (04:15)
[2024-05-23] MEDS: Dextrose 5 % and Lactated Ring 1,000 ML 125 ML IVCONT (04:22)
[2024-05-23] MEDS: Piperacillin Sodium/Tazobactam 2.25 GM in 0.9 % Sodium Chloride 50 ML IV ×4 (05:59→23:20)
[2024-05-23 07:17] LABS: Glucose, Whole Blood 86 mg/dL (60-115)
[2024-05-23 07:52] VITALS: BP 140/76; PULSE 44; RESP 12; TEMP 36.4; O2SAT 96
[2024-05-23] MEDS: Pantoprazole Sodium 40 MG/10 ML VIAL IVPUSH ×2 (07:56→19:39)
[2024-05-23] MEDS: Cyanocobalamin (Vitamin B-12) 1,000 MCG TABLET 1000 MCG PO (07:56)
[2024-05-23] MEDS: Finasteride 5 MG TABLET PO (07:56)
[2024-05-23] MEDS: 0.9 % Sodium Chloride Flush 3 ML SYRINGE IVFLUSH ×3 (07:57→19:41)
[2024-05-23] MEDS: Mupirocin 2 % Oint 22 GM TUBE 1 APPL TOPICAL (08:07)
[2024-05-23 08:38] LABS: Hematocrit 31.4 % (42.0-52.0); Hemoglobin 10.4 g/dl (14.0-18.0); Mean Corpuscular HGB Conc 33.1 g/dl (31.0-36.0); Mean Corpuscular Hemoglobin 30.1 pg (27.0-33.0); Mean Platelet Volume 9.7 fL (9.4-12.4); Platelet Count 272 X10*3/uL (160-400); Red Blood Count 3.45 X10*6/uL (4.60-5.80); Red Cell Distribution Width 14.6 % (11.0-16.0); White Blood Count 6.6 X10*3/uL (4.8-10.8)
[2024-05-23 08:53] LABS: Anion Gap 12 (12-20); Blood Urea Nitrogen 29 mg/dL (9-16); Calcium 8.3 mg/dL (8.4-10.2); Carbon Dioxide 23 mmol/L (22-29); Chloride 109 mmol/L (96-108); Creatinine Clr Calc Pharmacy 25.7; Estimated Glomerular Filt Rate 40; Glucose Random 100 mg/dL (60-115); Potassium 3.3 mmol/L (3.3-5.1); Sodium 141 mmol/L (135-145)
--- NOTE | 2024-05-23 09:00 | P.PNGS_ITS ---
Subjective Subjective Date of Service: 05/23/24 Interval history: Feels well Denies abdominal pain Denies nausea or vomiting Says he had a bowel movement yesterday Patient had a good historian Physical Exam 2 Vital Signs: Vital Signs: Last Vital Signs Temp 97.6 F 05/23/24 07:52 Pulse 44 L 05/23/24 07:52 Resp 12 05/23/24 07:52 BP 140/76 H 05/23/24 07:52 Pulse Ox 96 05/23/24 07:52 O2 Del Method Room Air 05/23/24 07:52 BMI result Body Mass Index 17.8 Const: General: comfortable and no acute distress Resp: Effort & Inspection: normal respiratory effort Cardio: Rate: bradycardic GI: Palpation (GI): Soft to palpation, not firm, nontender and no guarding Objective Data Active Medications Acetaminophen (Acetaminophen 325 Mg Tablet) 650 mg PO Q6H PRN PRN Reason: Pain, Mild (Pain Scale 1-3), fever or headache Last Admin: 05/22/24 11:57 Dose: 650 mg Documented By: SHAHZAD Calcium Carbonate (Calcium Carbonate 750 Mg Tab.Chew) 750 mg PO Q4H PRN PRN Reason: Heartburn Cyanocobalamin (Cyanocobalamin (Vitamin B-12) 1,000 Mcg Tablet) 1,000 mcg PO DAILY [facility] Last Admin: 05/23/24 07:56 Dose: 1,000 mcg Documented By: SANDRITA Finasteride (Finasteride 5 Mg Tablet) 5 mg PO DAILY [facility] Last Admin: 05/23/24 07:56 Dose: 5 mg Documented By: SANDRITA Glucose (Glucose Gel 15 Gm Gel..Gram.) 15 gm PO Q15M PRN; Protocol PRN Reason: per Hypoglycemia Standing Ord. Piperacillin Sod/Tazobactam (Sod 2.25 gm/ Sodium Chloride) 50 mls @ 100 mls/hr IV Q6H [facility] Last Infusion: 05/23/24 06:29 Dose: Infused Documented By: NICKY Doxycycline Hyclate 100 mg/ (Sodium Chloride) 250 mls @ 166.67 mls/hr IV Q12H [facility] Last Infusion: 05/23/24 05:53 Dose: Infused Documented By: NICKY Dextrose (D10) 250 mls @ 750 mls/hr IV Q15M PRN; Protocol PRN Reason: per Hypoglycemia Standing Ord. Last Infusion: 05/21/24 08:42 Dose: Infused Documented By: RAMIRO Dextrose/Lactated Ringer's (D5lr) 1,000 mls @ 125 mls/hr IVCONT .Q8H [facility] Last Admin: 05/23/24 04:22 Dose: 125 mls/hr Documented By: NICKY Magnesium Hydroxide (Milk Of Magnesia 30 Ml Oral.Susp) 30 ml PO DAILY PRN PRN Reason: Constipation Melatonin (Melatonin 3 Mg Tablet) 6 mg PO BEDTIME PRN PRN Reason: Insomnia Mirtazapine (Mirtazapine 15 Mg Tablet) 15 mg PO BEDTIME [facility] Last Admin: 05/22/24 20:37 Dose: 15 mg Documented By: NICKY Mupirocin (Mupirocin 2 % Oint 22 Gm Tube) 1 appl TOPICAL BID [facility]; Protocol Last Admin: 05/23/24 08:07 Dose: 1 appl Documented By: SANDRITA Pantoprazole Sodium (Pantoprazole Sodium 40 Mg/10 Ml Vial) 40 mg IVPUSH BID [facility] Last Admin: 05/23/24 07:56 Dose: 40 mg Documented By: SANDRITA Sodium Chloride (0.9 % Sodium Chloride Flush 3 Ml Syringe) 3 ml IVFLUSH QSHIFT [facility] Last Admin: 05/23/24 07:57 Dose: 3 ml Documented By: SANDRITA Trazodone HCl (Trazodone Hcl 25 Mg Halftab) 25 mg PO BEDTIME [facility] Last Admin: 05/22/24 20:37 Dose: 25 mg Documented By: NICKY Labs 05/23/24 08:28 05/23/24 08:28 Labs: Laboratory Results - last 24 hr 05/22/24 05/22/24 05/22/24 11:47 13:55 16:19 MCV 92.2 MCH 30.2 MCHC 32.8 RDW 14.9 Plt Count 260 MPV 9.6 Absolute Nucleated RBC 0.000 Nucleated RBC % (auto) 0.0 Anion Gap Estim Creat Clear Calc Estimated GFR POC Glucose 128 H 107 Random Glucose Calcium U Random Total Protein Urine Creatinine Stool Occult Blood 05/22/24 05/22/24 05/22/24 18:27 20:18 22:00 MCV MCH MCHC RDW Plt Count MPV Absolute Nucleated RBC Nucleated RBC % (auto) Anion Gap Estim Creat Clear Calc Estimated GFR POC Glucose 98 Random Glucose Calcium U Random Total Protein 22 H Urine Creatinine 38.32 Stool Occult Blood POSITIVE 05/23/24 05/23/24 07:14 08:28 MCV 91.0 MCH 30.1 MCHC 33.1 RDW 14.6 Plt Count 272 MPV 9.7 Absolute Nucleated RBC 0.000 Nucleated RBC % (auto) 0.0 Anion Gap 12 Estim Creat Clear Calc 25.7 Estimated GFR 40 POC Glucose 86 Random Glucose 100 Calcium 8.3 L U Random Total Protein Urine Creatinine Stool Occult Blood Microbiology Microbiology Results: Microbiology 05/20/24 11:03 Blood Culture - Preliminary Blood - Venous No growth after 48 hours. 05/20/24 10:56 Blood Culture - Preliminary Blood - Venous No growth after 48 hours. Procedures Date of Service Date of Service: 05/23/24 Progress Note: A&P Assessment and plan (1) Coffee ground emesis: Status: Acute Assessment and Plan: Clinically not obstructed although KUB shows dilated small bowel loops Okay to advance diet as tolerated Abdomen very soft and benign No nausea or vomiting Hemoglobin stable GI workup for anemia Time Spent With Patient Time: Total time managing care of this patient today ____ minutes. Quality Stroke Does the patient have a stroke diagnosis?: No VTE Prior VTE?: No VTE Risk Level:: Medical - moderate - high VTE Device Contraindication: N/A - Device Ordered VTE Drug Contraindication: N/A - Med Ordered
--- NOTE | 2024-05-23 09:05 | PM.PNNEP ---
Subjective Subjective Date of Service: 05/23/24 Interval history: 78 y/o male who lives in SNF with dementia, mood disorder, BPH, chronic ornelas, paroxysmal afib, HTN, GERD, OM, protein calorie malnutrition presented 05/20 with coffee ground emesis, worsening mentation. Being treated here for PNA, DOUGLAS, ileus, GIB, anemia Nephrology consulted for DOUGLAS creatinine 04/10 was 1.05 05/20 creatinine 2.68, has been trending down, today 05/22 is 2.00, 05/23 1.67 UA suggesting UTI - culture showed mixed bacterial terry abdominal CT 05/20 with normal size/shape attenuation of kidneys, no obstruction or hydronephrouerter; bladder shows mild wall thickening 05/20 arrival pt hypotensive lowest [employer] 86/50 of note, has naprosyn PRN on home med list Physical Exam Vital Signs: Vital Signs: Last Vital Signs Temp 97.6 F 05/23/24 07:52 Pulse 44 L 05/23/24 07:52 Resp 12 05/23/24 07:52 BP 140/76 H 05/23/24 07:52 Pulse Ox 96 05/23/24 07:52 O2 Del Method Room Air 05/23/24 07:52 BMI result Body Mass Index 17.8 Const: General: no acute distress, alert, awake and confusion Orientation/consciousness: confusion Resp: Effort & Inspection: normal respiratory effort and able to speak in complete sentences Auscultation: clear to auscultation bilaterally Cardio: Jugular venous distension: no JVD Palpation: normal PMI Rate: regular rate Rhythm: regular rhythm Heart sounds: S1 normal heart sound present and S2 normal heart sound present GI: Palpation (GI): Soft to palpation and nontender : General: Yes no CVA tenderness Back/Spine/Pelvis: Back: no CVA tenderness Skin: Lesions: no lesions Rashes: no rashes Neuro: General: confusion Extrem: General: No edema Objective Data Labs 05/23/24 08:28 05/23/24 08:28 Labs: Laboratory Results - last 24 hr 05/22/24 05/22/24 05/22/24 11:47 13:55 16:19 WBC 6.7 RBC 3.44 L Hgb 10.4 L Hct 31.7 L MCV 92.2 MCH 30.2 MCHC 32.8 RDW 14.9 Plt Count 260 MPV 9.6 Absolute Nucleated RBC 0.000 Nucleated RBC % (auto) 0.0 Sodium Potassium Chloride Carbon Dioxide Anion Gap BUN Creatinine Estim Creat Clear Calc Estimated GFR POC Glucose 128 H 107 Random Glucose Calcium U Random Total Protein Urine Creatinine Stool Occult Blood 05/22/24 05/22/24 05/22/24 18:27 20:18 22:00 WBC RBC Hgb Hct MCV MCH MCHC RDW Plt Count MPV Absolute Nucleated RBC Nucleated RBC % (auto) Sodium Potassium Chloride Carbon Dioxide Anion Gap BUN Creatinine Estim Creat Clear Calc Estimated GFR POC Glucose 98 Random Glucose Calcium U Random Total Protein 22 H Urine Creatinine 38.32 Stool Occult Blood POSITIVE 05/23/24 05/23/24 07:14 08:28 WBC 6.6 RBC 3.45 L Hgb 10.4 L Hct 31.4 L MCV 91.0 MCH 30.1 MCHC 33.1 RDW 14.6 Plt Count 272 MPV 9.7 Absolute Nucleated RBC 0.000 Nucleated RBC % (auto) 0.0 Sodium 141 Potassium 3.3 Chloride 109 H Carbon Dioxide 23 Anion Gap 12 BUN 29 H Creatinine 1.67 H Estim Creat Clear Calc 25.7 Estimated GFR 40 POC Glucose 86 Random Glucose 100 Calcium 8.3 L U Random Total Protein Urine Creatinine Stool Occult Blood Microbiology Microbiology Results: Microbiology 05/20/24 11:03 Blood - Venous Blood Culture - Preliminary No growth after 48 hours. 05/20/24 10:56 Blood - Venous Blood Culture - Preliminary No growth after 48 hours. 05/20/24 Unknown Urine clean catch - Clean Catch Midstream Urine Culture - Final Procedures Date of Service Date of Service: 05/23/24 Assessment & Plan Assessment and plan (1) DOUGLAS (acute kidney injury): Status: Acute Plan DOUGLAS likely tubular injury, secondary volume depletion/hypoperfusion if received naprosyn prior to admission, this would have contributed to DOUGLAS as well labs reveiwed- creatinine continues to improve with hydration; continue to encourage PO intake, keep intake > output updated urine culture pending avoid hypotension avoid nephrotoxins recommend daily electrolyte and renal function testing will continue to follow Discussed with Dr Butterfield Time Spent With Patient Time: Total time managing care of this patient today ____ minutes. Progress Note: Quality Stroke Does the patient have a stroke diagnosis?: No
[2024-05-23 11:42] LABS: Glucose, Whole Blood 87 mg/dL (60-115)
[2024-05-23 11:58] VITALS: BP 150/87; PULSE 52; RESP 12; TEMP 36.1; O2SAT 96
--- NOTE | 2024-05-23 12:08 | P.CDIM_ITS ---
PROVIDER RESPONSE TEXT: To clarify, the appropriate diagnosis supported by the clinical indicators: Yes, UTI is related to / associated with / due to chronic suprapubic catheter QUERY TEXT: PHYSICIAN'S DOCUMENTATION REQUEST Date of Query: 05/23/2024 11:33 AM EST Patient Name: Joel Acevedo Admit Date: 05/20/2024 Dear Dhiraj Law MD, A review of the medical record indicates additional documentation may be needed. Please review below and update the documentation accordingly. Documentation includes the conditions of UTI and chronic suprapubic catheter. Clinical Indicators: IV Zosyn, monitor hematuria, follow culture Please clarify the relationship between these conditions: Yes, UTI is related to / associated with / due to chronic suprapubic catheter No, UTI is not related to / associated with / due to chronic suprapubic catheter Other (explain) Clinically unable to determine (explain) Thank you, Kaye Dasilva RN Use of terms such as suspected, likely, concern for, or probable (associated with a specific diagnosi s that is being evaluated, monitored, or treated as if it exists) are acceptable and can be coded in the inpatient se tting, when documented at the time of discharge. Please use your independent medical judgment in providing your response. THIS QUERY IS PART OF THE PERMANENT MEDICAL RECORD
--- NOTE | 2024-05-23 13:36 | HO.PM.IMPN ---
Subjective Subjective Date of Service: 05/23/24 Interval History: f/u on gib bleed, anemia, renal failure, ileus interval history: has no specific complaint, baseline confusion clinically seems to be doing better Physical Exam Vital Signs: Vital Signs: Last Vital Signs Temp 97.0 F 05/23/24 11:58 Pulse 52 05/23/24 11:58 Resp 12 05/23/24 11:58 BP 150/87 H 05/23/24 11:58 Pulse Ox 96 05/23/24 11:58 O2 Del Method Room Air 05/23/24 11:58 BMI result Body Mass Index 17.8 Objective Data Active Medications Acetaminophen (Acetaminophen 325 Mg Tablet) 650 mg PO Q6H PRN PRN Reason: Pain, Mild (Pain Scale 1-3), fever or headache Last Admin: 05/22/24 11:57 Dose: 650 mg Documented By: SHAHZAD Calcium Carbonate (Calcium Carbonate 750 Mg Tab.Chew) 750 mg PO Q4H PRN PRN Reason: Heartburn Cyanocobalamin (Cyanocobalamin (Vitamin B-12) 1,000 Mcg Tablet) 1,000 mcg PO DAILY [facility] Last Admin: 05/23/24 07:56 Dose: 1,000 mcg Documented By: SANDRITA Doxycycline Monohydrate (Doxycycline Monohydrate 100 Mg Capsule) 100 mg PO Q12H [facility] Finasteride (Finasteride 5 Mg Tablet) 5 mg PO DAILY [facility] Last Admin: 05/23/24 07:56 Dose: 5 mg Documented By: SANDRITA Glucose (Glucose Gel 15 Gm Gel..Gram.) 15 gm PO Q15M PRN; Protocol PRN Reason: per Hypoglycemia Standing Ord. Piperacillin Sod/Tazobactam (Sod 2.25 gm/ Sodium Chloride) 50 mls @ 100 mls/hr IV Q6H [facility] Last Infusion: 05/23/24 13:16 Dose: Infused Documented By: JOEL Dextrose (D10) 250 mls @ 750 mls/hr IV Q15M PRN; Protocol PRN Reason: per Hypoglycemia Standing Ord. Last Infusion: 05/21/24 08:42 Dose: Infused Documented By: RAMIRO Magnesium Hydroxide (Milk Of Magnesia 30 Ml Oral.Susp) 30 ml PO DAILY PRN PRN Reason: Constipation Melatonin (Melatonin 3 Mg Tablet) 6 mg PO BEDTIME PRN PRN Reason: Insomnia Mirtazapine (Mirtazapine 15 Mg Tablet) 15 mg PO BEDTIME [facility] Last Admin: 05/22/24 20:37 Dose: 15 mg Documented By: NICKY Mupirocin (Mupirocin 2 % Oint 22 Gm Tube) 1 appl TOPICAL BID [facility]; Protocol Last Admin: 05/23/24 08:07 Dose: 1 appl Documented By: SANDRITA Pantoprazole Sodium (Pantoprazole Sodium 40 Mg/10 Ml Vial) 40 mg IVPUSH BID [facility] Last Admin: 05/23/24 07:56 Dose: 40 mg Documented By: SANDRITA Sodium Chloride (0.9 % Sodium Chloride Flush 3 Ml Syringe) 3 ml IVFLUSH QSHIFT [facility] Last Admin: 05/23/24 07:57 Dose: 3 ml Documented By: SANDRITA Trazodone HCl (Trazodone Hcl 25 Mg Halftab) 25 mg PO BEDTIME [facility] Last Admin: 05/22/24 20:37 Dose: 25 mg Documented By: NICKY Labs 05/23/24 08:28 05/23/24 08:28 Labs: Laboratory Results - last 24 hr 05/22/24 05/22/24 05/22/24 13:55 16:19 18:27 MCV 92.2 MCH 30.2 MCHC 32.8 RDW 14.9 Plt Count 260 MPV 9.6 Absolute Nucleated RBC 0.000 Nucleated RBC % (auto) 0.0 Anion Gap Estim Creat Clear Calc Estimated GFR POC Glucose 107 Random Glucose Calcium U Random Total Protein 22 H Urine Creatinine 38.32 Stool Occult Blood 05/22/24 05/22/24 05/23/24 20:18 22:00 07:14 MCV MCH MCHC RDW Plt Count MPV Absolute Nucleated RBC Nucleated RBC % (auto) Anion Gap Estim Creat Clear Calc Estimated GFR POC Glucose 98 86 Random Glucose Calcium U Random Total Protein Urine Creatinine Stool Occult Blood POSITIVE 05/23/24 05/23/24 08:28 11:38 MCV 91.0 MCH 30.1 MCHC 33.1 RDW 14.6 Plt Count 272 MPV 9.7 Absolute Nucleated RBC 0.000 Nucleated RBC % (auto) 0.0 Anion Gap 12 Estim Creat Clear Calc 25.7 Estimated GFR 40 POC Glucose 87 Random Glucose 100 Calcium 8.3 L U Random Total Protein Urine Creatinine Stool Occult Blood Microbiology Microbiology Results: Microbiology 05/22/24 18:27 Urine Culture - Preliminary Urine Catheterized - Ornelas Catheter Culture too young to evaluate. 05/20/24 11:03 Blood Culture - Preliminary Blood - Venous No growth after 48 hours. 05/20/24 10:56 Blood Culture - Preliminary Blood - Venous No growth after 48 hours. Assessment and Plan (1) Coffee ground emesis: Status: Acute (2) SBO (small bowel obstruction): Status: Acute (3) DOUGLAS (acute kidney injury): Status: Acute (4) Hematuria: Status: Acute Plan 78/m with unspecified dementia with mood disorder, BPH with LUTS and chronic suprapubic cath, paroxysmal atrial fibrillation anticoagulated with Eliquis, HTN, GERD, osteoarthritis, history of MRSA UTI/bacteremia, and moderate protein calorie malnutrition, poor historian -information given by Ed physician : sent to ed due to coffee-ground emesis,? Some worsening mentation. coffee ground emesis /gib no active bleed h/h better after transfusion seen by gi:no EGD at the present IV PPI x 72 hrs, then PO today liquid diet, advance as beth hold eliquis for now, will discuss with gi when to restart ct abd -?sbo, seen by surgery no clinical sbo, possible ileus, conservative management seems better and will advance diet, after seen by speech Asp Pneumonia continue Zosyn started 05/20, change to Augmentin before dc UTI--Zosyn, follow culture Hematuria--appear old blood in ornelas cath, monitor hypoglycemia- LR +Dextrose chronic afib, rate controlled currently in sinus rythem hold eliquis due to ?gib Douglas, likely pre renal from renal hypoperfusion, hypotension IVF + blood product, nephrology following, better Metabolic acidosis with , likely from renal failure, resolved. 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 dvt prophylaxis: compressision device Quality Stroke Does the patient have a stroke diagnosis?: No VTE Prior VTE?: No VTE Risk Level:: Medical - moderate - high VTE Device Contraindication: N/A - Device Ordered VTE Drug Contraindication: N/A - Med Ordered
--- NOTE | 2024-05-23 15:13 | P.PNGI_ITS ---
Subjective Subjective Date of Service: 05/22/24 Interval History: Seen in follow up. Plan was for EGD but KUB last evening again demonstrates possibility of ileus vs SBO. Bedside RN reports pt passed 2 soft thin stringy stools. Pt himself does not report any abd pain, nausea however refusing to eat/unable to progress diet and only taking sips of water with meds. Critical Care Time (minutes): 0 Physical Exam 2 Vital Signs: Vital Signs: Last Vital Signs Temp 98.1 F 05/22/24 07:39 Pulse 45 L 05/22/24 07:39 Resp 18 05/22/24 07:39 BP 140/70 H 05/22/24 07:39 Pulse Ox 98 05/22/24 07:39 O2 Del Method Room Air 05/22/24 07:39 BMI result Body Mass Index 17.8 Elderly male abd soft, nontender Objective Data Labs 05/23/24 08:28 05/23/24 08:28 Labs: Laboratory Results - last 24 hr 05/20/24 05/21/24 05/21/24 10:19 12:36 16:04 WBC RBC Hgb Hct MCV MCH MCHC RDW Plt Count MPV Absolute Nucleated RBC Nucleated RBC % (auto) Sodium Potassium Chloride Carbon Dioxide Anion Gap BUN Creatinine Estim Creat Clear Calc Estimated GFR POC Glucose 103 113 Random Glucose Calcium Blood Type AB Negative Antibody Screen NEGATIVE Crossmatch See Detail 05/21/24 05/22/24 05/22/24 21:16 05:33 07:37 WBC 7.0 RBC 3.39 L D Hgb 10.3 L D Hct 31.5 L D MCV 92.9 MCH 30.4 MCHC 32.7 RDW 14.7 Plt Count 259 MPV 10.3 Absolute Nucleated RBC 0.000 Nucleated RBC % (auto) 0.0 Sodium 141 Potassium 3.5 Chloride 111 H Carbon Dioxide 22 Anion Gap 12 BUN 51 H Creatinine 2.00 H Estim Creat Clear Calc 21.5 Estimated GFR 32 POC Glucose 99 86 Random Glucose 87 Calcium 8.5 Blood Type Antibody Screen Crossmatch Microbiology Microbiology Results: Microbiology 05/20/24 11:03 Blood - Venous Blood Culture - Preliminary No growth after 24 hours. 05/20/24 10:56 Blood - Venous Blood Culture - Preliminary No growth after 24 hours. 05/20/24 Unknown Urine clean catch - Clean Catch Midstream Urine Culture - Final Procedures Date of Service Date of Service: 05/23/24 Progress Note: A&P Assessment and plan (1) Chronic anticoagulation: Status: Acute (2) Coffee ground emesis: Status: Acute (3) Hematuria: Status: Acute (4) Obstructive uropathy: Status: Acute Plan Anticoagulation on hold for question GIB delvin as pt drop H/H on 05/20 evening and required 2u PRBC. Plan was for EGD but KUB with persistent air fluid level and distention of small bowel in LUQ. Pt also unable to progress diet/refusing to eat anything beyond a few sips of water. Recommend SBFT if okayed by renal If imaging does not show partial SBO will proceed with EGD Can resume anticoagulation with IV heparin or lovenox in the meantime since its readily reversible Time Spent With Patient Time: Total time managing care of this patient today ____ minutes. Quality Stroke Does the patient have a stroke diagnosis?: No VTE Prior VTE?: No VTE Risk Level:: Medical - moderate - high VTE Device Contraindication: N/A - Device Ordered VTE Drug Contraindication: N/A - Med Ordered
--- NOTE | 2024-05-23 15:15 | MHC.SLORD ---
Speech Language Pathology Order Status: STAVE CUTTER attempted, but Pt declined. STAVE CUTTER will re-attempt tomorrow morning.
[2024-05-23 16:00] VITALS: BP 154/82; PULSE 55; TEMP 37.2; O2SAT 95
[2024-05-23] MEDS: Doxycycline Monohydrate 100 MG CAPSULE PO (17:22)
--- NOTE | 2024-05-23 18:29 | PC.NURSE ---
Pt impulsive getting OOB to BR . Pt had 3 medium soft brown BMs .Pt did not eat any of his meals but did take his medications today with no difficulty .
[2024-05-23] MEDS: Acetaminophen 325 MG TABLET 650 MG PO (19:39)
[2024-05-23] MEDS: Enoxaparin Sodium 40 MG/0.4 ML SYRINGE SUBCUT (19:39)
[2024-05-23] MEDS: traZODone HCL 25 MG HALFTAB PO (19:39)
[2024-05-23] MEDS: Melatonin 3 MG TABLET 6 MG PO (19:40)
[2024-05-23] MEDS: Mirtazapine 15 MG TABLET PO (19:40)
[2024-05-23 20:00] VITALS: BP 122/72; PULSE 95; RESP 18; TEMP 36.6; O2SAT 96
[2024-05-23 20:21] LABS: Glucose, Whole Blood 87 mg/dL (60-115)
[2024-05-23 23:37] VITALS: BP 131/78; PULSE 44; RESP 18; TEMP 36.5; O2SAT 97
[2024-05-24 03:52] VITALS: BP 164/82; PULSE 59; RESP 18; TEMP 36.6; O2SAT 97
[2024-05-24] MEDS: Piperacillin Sodium/Tazobactam 2.25 GM in 0.9 % Sodium Chloride 50 ML IV (05:25)
[2024-05-24] MEDS: Doxycycline Monohydrate 100 MG CAPSULE PO ×2 (05:25→16:55)
[2024-05-24 06:19] LABS: Hematocrit 32.4 % (42.0-52.0); Hemoglobin 10.7 g/dl (14.0-18.0); Mean Corpuscular Hemoglobin 30.2 pg (27.0-33.0); Mean Corpuscular Volume 91.5 fL (80.0-98.0); Mean Platelet Volume 10.2 fL (9.4-12.4); Platelet Count 280 X10*3/uL (160-400); Red Blood Count 3.54 X10*6/uL (4.60-5.80); Red Cell Distribution Width 14.6 % (11.0-16.0); White Blood Count 7.6 X10*3/uL (4.8-10.8)
[2024-05-24 06:33] LABS: Anion Gap 13 (12-20); Blood Urea Nitrogen 23 mg/dL (9-16); Calcium 8.3 mg/dL (8.4-10.2); Carbon Dioxide 22 mmol/L (22-29); Chloride 110 mmol/L (96-108); Creatinine Clr Calc Pharmacy 27.4; Estimated Glomerular Filt Rate 43; Glucose Random 70 mg/dL (60-115); Potassium 3.3 mmol/L (3.3-5.1); Sodium 142 mmol/L (135-145)
[2024-05-24 07:23] VITALS: BP 144/77; PULSE 48; RESP 14; TEMP 36.7; O2SAT 97
[2024-05-24 07:30] LABS: Glucose, Whole Blood 73 mg/dL (60-115)
[2024-05-24] MEDS: Finasteride 5 MG TABLET PO (07:34)
[2024-05-24] MEDS: Cyanocobalamin (Vitamin B-12) 1,000 MCG TABLET 1000 MCG PO (07:34)
[2024-05-24] MEDS: 0.9 % Sodium Chloride Flush 3 ML SYRINGE IVFLUSH ×2 (07:36→23:12)
[2024-05-24] MEDS: Mupirocin 2 % Oint 22 GM TUBE 1 APPL TOPICAL (07:37)
--- NOTE | 2024-05-24 09:00 | PM.PNNEP ---
Subjective Subjective Date of Service: 05/24/24 Interval history: 78 y/o male who lives in SNF with dementia, mood disorder, BPH, chronic ornelas, paroxysmal afib, HTN, GERD, OM, protein calorie malnutrition presented 05/20 with coffee ground emesis, worsening mentation. Being treated here for PNA, DOUGLAS, ileus, GIB, anemia Nephrology consulted for DOUGLAS creatinine 04/10 was 1.05 05/20 creatinine 2.68, has been trending down, today 05/22 is 2.00, 05/23 1.67, 05/24 1.57 UA suggesting UTI - culture showed mixed bacterial terry; repeat culture 05/[address] 05/20 with normal size/shape attenuation of kidneys, no obstruction or hydronephrouerter; bladder shows mild wall thickening 05/20 arrival pt hypotensive lowest [employer] 86/50 of note, has naprosyn PRN on home med list Physical Exam Vital Signs: Vital Signs: Last Vital Signs Temp 98.1 F 05/24/24 07:23 Pulse 48 L 05/24/24 07:23 Resp 14 05/24/24 07:23 BP 144/77 H 05/24/24 07:23 Pulse Ox 97 05/24/24 07:23 O2 Del Method Room Air 05/24/24 07:23 BMI result Body Mass Index 17.8 Const: General: no acute distress, alert, awake and confusion Orientation/consciousness: confusion Resp: Effort & Inspection: normal respiratory effort and able to speak in complete sentences Auscultation: clear to auscultation bilaterally Cardio: Jugular venous distension: no JVD Palpation: normal PMI Rate: regular rate Rhythm: regular rhythm Heart sounds: S1 normal heart sound present and S2 normal heart sound present GI: Palpation (GI): Soft to palpation and nontender : General: Yes no CVA tenderness Back/Spine/Pelvis: Back: no CVA tenderness Skin: Lesions: no lesions Rashes: no rashes Neuro: General: confusion Extrem: General: No edema Objective Data Labs 05/24/24 05:03 05/24/24 05:03 Labs: Laboratory Results - last 24 hr 05/23/24 05/23/24 05/24/24 11:38 20:16 05:03 WBC 7.6 RBC 3.54 L Hgb 10.7 L Hct 32.4 L MCV 91.5 MCH 30.2 MCHC 33.0 RDW 14.6 Plt Count 280 MPV 10.2 Absolute Nucleated RBC 0.000 Nucleated RBC % (auto) 0.0 Sodium 142 Potassium 3.3 Chloride 110 H Carbon Dioxide 22 Anion Gap 13 BUN 23 H Creatinine 1.57 H Estim Creat Clear Calc 27.4 Estimated GFR 43 POC Glucose 87 87 Random Glucose 70 Calcium 8.3 L 05/24/24 07:26 WBC RBC Hgb Hct MCV MCH MCHC RDW Plt Count MPV Absolute Nucleated RBC Nucleated RBC % (auto) Sodium Potassium Chloride Carbon Dioxide Anion Gap BUN Creatinine Estim Creat Clear Calc Estimated GFR POC Glucose 73 Random Glucose Calcium Microbiology Microbiology Results: Microbiology 05/22/24 18:27 Urine Catheterized - Ornelas Catheter Urine Culture - Preliminary Culture too young to evaluate. 05/20/24 11:03 Blood - Venous Blood Culture - Preliminary No growth after 48 hours. 05/20/24 10:56 Blood - Venous Blood Culture - Preliminary No growth after 48 hours. 05/20/24 Unknown Urine clean catch - Clean Catch Midstream Urine Culture - Final Procedures Date of Service Date of Service: 05/24/24 Assessment & Plan Assessment and plan (1) DOUGLAS (acute kidney injury): Status: Acute Plan DOUGLAS likely tubular injury, secondary volume depletion/hypoperfusion if received naprosyn prior to admission, this would have contributed to DOUGLAS as well labs reveiwed- creatinine continues to improve with hydration; continue to encourage PO intake, keep intake > output updated urine culture pending avoid hypotension avoid nephrotoxins recommend daily electrolyte and renal function testing will continue to follow Discussed with Dr Time Spent With Patient Time: Total time managing care of this patient today ____ minutes. Progress Note: Quality Stroke Does the patient have a stroke diagnosis?: No
--- NOTE | 2024-05-24 10:16 | MHC.SLORD ---
Speech Language Pathology Order Status: Pt seen this morning, alert and conversant but confused. RN consulted. Pt sipped liquids by straw without overt s/s of aspiration. Pt on clear liquid diet at this time, EGD pending. Pt tolerated meds with liquid per RN report. 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
--- NOTE | 2024-05-24 11:33 | HO.PM.IMPN ---
Subjective Subjective Date of Service: 05/24/24 Interval History: f/u on gib bleed, anemia, renal failure, ileus interval history: No specific complaint, no abdominal pain, no further evidence of bleeding Physical Exam Vital Signs: Vital Signs: Last Vital Signs Temp 98.1 F 05/24/24 07:23 Pulse 48 L 05/24/24 07:23 Resp 14 05/24/24 07:23 BP 144/77 H 05/24/24 07:23 Pulse Ox 97 05/24/24 07:23 O2 Del Method Room Air 05/24/24 07:23 BMI result Body Mass Index 17.8 Const: Other: General: alert but not oriented Resp: CTA bilateral CVS: S1,S2,RRR GI: +BS, NT, no distention Skin: No rash Neuro: motor grossly intact Psych: flat Objective Data Active Medications Acetaminophen (Acetaminophen 325 Mg Tablet) 650 mg PO Q6H PRN PRN Reason: Pain, Mild (Pain Scale 1-3), fever or headache Last Admin: 05/23/24 19:39 Dose: 650 mg Documented By: GARFIELD Calcium Carbonate (Calcium Carbonate 750 Mg Tab.Chew) 750 mg PO Q4H PRN PRN Reason: Heartburn Cyanocobalamin (Cyanocobalamin (Vitamin B-12) 1,000 Mcg Tablet) 1,000 mcg PO DAILY [facility] Last Admin: 05/24/24 07:34 Dose: 1,000 mcg Documented By: VANESA Doxycycline Monohydrate (Doxycycline Monohydrate 100 Mg Capsule) 100 mg PO Q12H [facility] Last Admin: 05/24/24 05:25 Dose: 100 mg Documented By: GARFIELD Enoxaparin Sodium (Enoxaparin Sodium 40 Mg/0.4 Ml Syringe) 40 mg SUBCUT Q24H [facility] Last Admin: 05/23/24 19:39 Dose: 40 mg Documented By: GARFIELD Finasteride (Finasteride 5 Mg Tablet) 5 mg PO DAILY [facility] Last Admin: 05/24/24 07:34 Dose: 5 mg Documented By: VANESA Glucose (Glucose Gel 15 Gm Gel..Gram.) 15 gm PO Q15M PRN; Protocol PRN Reason: per Hypoglycemia Standing Ord. Piperacillin Sod/Tazobactam (Sod 2.25 gm/ Sodium Chloride) 50 mls @ 100 mls/hr IV Q6H [facility] Last Infusion: 05/24/24 05:58 Dose: Infused Documented By: GARFIELD Dextrose (D10) 250 mls @ 750 mls/hr IV Q15M PRN; Protocol PRN Reason: per Hypoglycemia Standing Ord. Last Infusion: 05/21/24 08:42 Dose: Infused Documented By: RAMIRO Magnesium Hydroxide (Milk Of Magnesia 30 Ml Oral.Susp) 30 ml PO DAILY PRN PRN Reason: Constipation Melatonin (Melatonin 3 Mg Tablet) 6 mg PO BEDTIME PRN PRN Reason: Insomnia Last Admin: 05/23/24 19:40 Dose: 6 mg Documented By: GARFIELD Mirtazapine (Mirtazapine 15 Mg Tablet) 15 mg PO BEDTIME [facility] Last Admin: 05/23/24 19:40 Dose: 15 mg Documented By: GARFIELD Mupirocin (Mupirocin 2 % Oint 22 Gm Tube) 1 appl TOPICAL BID [facility]; Protocol Last Admin: 05/24/24 07:37 Dose: 1 appl Documented By: VANESA Sodium Chloride (0.9 % Sodium Chloride Flush 3 Ml Syringe) 3 ml IVFLUSH QSHIFT [facility] Last Admin: 05/24/24 07:36 Dose: 3 ml Documented By: VANESA Trazodone HCl (Trazodone Hcl 25 Mg Halftab) 25 mg PO BEDTIME [facility] Last Admin: 05/23/24 19:39 Dose: 25 mg Documented By: GARFIELD Labs 05/24/24 05:03 05/24/24 05:03 Labs: Laboratory Results - last 24 hr 05/23/24 05/23/24 05/24/24 11:38 20:16 05:03 MCV 91.5 MCH 30.2 MCHC 33.0 RDW 14.6 Plt Count 280 MPV 10.2 Absolute Nucleated RBC 0.000 Nucleated RBC % (auto) 0.0 Anion Gap 13 Estim Creat Clear Calc 27.4 Estimated GFR 43 POC Glucose 87 87 Random Glucose 70 Calcium 8.3 L 05/24/24 07:26 MCV MCH MCHC RDW Plt Count MPV Absolute Nucleated RBC Nucleated RBC % (auto) Anion Gap Estim Creat Clear Calc Estimated GFR POC Glucose 73 Random Glucose Calcium Microbiology Microbiology Results: Microbiology 11/18/24 18:27 Urine Culture - Preliminary Urine Catheterized - Ornelas Catheter Culture too young to evaluate. Assessment and Plan (1) Coffee ground emesis: Status: Acute (2) SBO (small bowel obstruction): Status: Acute (3) DOUGLAS (acute kidney injury): Status: Acute (4) Hematuria: Status: Acute Plan 78/m with unspecified dementia with mood disorder, BPH with LUTS and chronic suprapubic cath, paroxysmal atrial fibrillation anticoagulated with Eliquis, HTN, GERD, osteoarthritis, history of MRSA UTI/bacteremia, and moderate protein calorie malnutrition, poor historian -information given by Ed physician : sent to ed due to coffee-ground emesis,? Some worsening mentation. coffee ground emesis /gib no active bleed H/h remains stable GI following, may need EGD IV PPI liquid diet, advance as beth holding eliquis for now, will discuss with gi when to restart CT of abdomen show improving ileus ct abd -?sbo, seen by surgery no clinical sbo, possible ileus, conservative management seems better and will advance diet, after seen by speech Asp Pneumonia continue Zosyn started 05/20, change to Augmentin before dc UTI--Zosyn, follow culture Bradycardia--assymptomatic, get ecg Hematuria--appear old blood in ornelas cath, monitor hypoglycemia- LR +Dextrose chronic afib, rate controlled currently in sinus rythem hold eliquis due to ?gib Douglas, likely pre renal from renal hypoperfusion, hypotension IVF + blood product, nephrology following, better Metabolic acidosis with , likely from renal failure, resolved. 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 dvt prophylaxis: compressision device Quality Stroke Does the patient have a stroke diagnosis?: No VTE Prior VTE?: No VTE Risk Level:: Medical - moderate - high VTE Device Contraindication: N/A - Device Ordered VTE Drug Contraindication: N/A - Med Ordered
--- NOTE | 2024-05-24 11:34 | MHC.CLN ---
F/U TODAY IS DAY 5 OF CLEAR LIQUID DIET. REFUSING TO EAT. EGD PENDING. FOLLOW FOR DIET ADVANCEMENT AND INTAKE. PATIENT MAY BENEFIT FROM NUTRITIONAL SUPPLEMENT. ENCOURAGE PO INTAKE ABLE.
[2024-05-24 11:46] LABS: Glucose, Whole Blood 75 mg/dL (60-115)
[2024-05-24] MEDS: Piperacillin Sodium/Tazobactam 3.375 GM in 0.9 % Sodium Chloride 50 ML IV ×3 (11:50→23:12)
[2024-05-24 12:00] VITALS: BP 161/87; PULSE 40; RESP 16; TEMP 37.1; O2SAT 98
[2024-05-24] MEDS: Lactated Ringers 1,000 ML 100 ML IVCONT ×2 (12:21→22:40)
--- NOTE | 2024-05-24 13:01 | MHC.CM.PN ---
Per MD rounds patient not medically cleared for dc. Noel May updated. CM will continue to follow.
--- NOTE | 2024-05-24 13:04 | PC.NURSE ---
Supra pubic Cath flushed, leaking appeared to stop, draining in cath tubing currently.
[2024-05-24 16:00] VITALS: BP 161/79; PULSE 49; RESP 16; TEMP 37.2; O2SAT 97
[2024-05-24 16:32] LABS: Glucose, Whole Blood 73 mg/dL (60-115)
[2024-05-24] MEDS: Enoxaparin Sodium 40 MG/0.4 ML SYRINGE SUBCUT (19:07)
[2024-05-24] MEDS: traZODone HCL 25 MG HALFTAB PO (19:08)
[2024-05-24] MEDS: Mirtazapine 15 MG TABLET PO (19:08)
[2024-05-24] MEDS: Melatonin 3 MG TABLET 6 MG PO (19:08)
[2024-05-24] MEDS: Acetaminophen 325 MG TABLET 650 MG PO (19:08)
[2024-05-24 19:32] VITALS: BP 142/84; PULSE 45; RESP 16; TEMP 36.9; O2SAT 96
[2024-05-24 19:55] LABS: Glucose, Whole Blood 82 mg/dL (60-115)
[2024-05-24 23:43] VITALS: BP 122/75; PULSE 46; RESP 16; TEMP 36.8; O2SAT 96
[2024-05-25] VITALS (14 sets, daily range): BP systolic 64–155; BP diastolic 41–82; PULSE 45–84; RESP 14–18; TEMP 36–37; O2SAT 96–98
[2024-05-25] MEDS: Doxycycline Monohydrate 100 MG CAPSULE PO ×2 (05:09→17:58)
[2024-05-25] MEDS: Piperacillin Sodium/Tazobactam 3.375 GM in 0.9 % Sodium Chloride 50 ML IV ×4 (05:09→23:06)
[2024-05-25] MEDS: Finasteride 5 MG TABLET PO (07:23)
[2024-05-25] MEDS: Cyanocobalamin (Vitamin B-12) 1,000 MCG TABLET 1000 MCG PO (07:23)
[2024-05-25 07:25] LABS: Glucose, Whole Blood 66 mg/dL (60-115)
[2024-05-25 08:02] LABS: Glucose, Whole Blood 68 mg/dL (60-115)
[2024-05-25] MEDS: Lactated Ringers 1,000 ML 100 ML IVCONT ×2 (08:53→23:04)
--- NOTE | 2024-05-25 09:32 | HO.PM.IMPN ---
Subjective Subjective Date of Service: 05/25/24 Interval History: f/u on gib bleed, anemia, renal failure, ileus interval history:Pt has been having bowel movment, no pain, Physical Exam Vital Signs: Vital Signs: Last Vital Signs Temp 98.0 F 05/25/24 07:18 Pulse 60 05/25/24 07:18 Resp 16 05/25/24 07:18 BP 145/70 H 05/25/24 07:18 Pulse Ox 97 05/25/24 07:18 O2 Del Method Room Air 05/25/24 07:18 BMI result Body Mass Index 17.8 Objective Data Active Medications Acetaminophen (Acetaminophen 325 Mg Tablet) 650 mg PO Q6H PRN PRN Reason: Pain, Mild (Pain Scale 1-3), fever or headache Last Admin: 05/24/24 19:08 Dose: 650 mg Documented By: GARFIELD Calcium Carbonate (Calcium Carbonate 750 Mg Tab.Chew) 750 mg PO Q4H PRN PRN Reason: Heartburn Cyanocobalamin (Cyanocobalamin (Vitamin B-12) 1,000 Mcg Tablet) 1,000 mcg PO DAILY [facility] Last Admin: 05/25/24 07:23 Dose: 1,000 mcg Documented By: SANDRITA Doxycycline Monohydrate (Doxycycline Monohydrate 100 Mg Capsule) 100 mg PO Q12H [facility] Last Admin: 05/25/24 05:09 Dose: 100 mg Documented By: GARFIELD Enoxaparin Sodium (Enoxaparin Sodium 40 Mg/0.4 Ml Syringe) 40 mg SUBCUT Q24H [facility] Last Admin: 05/24/24 19:07 Dose: 40 mg Documented By: GARFIELD Finasteride (Finasteride 5 Mg Tablet) 5 mg PO DAILY [facility] Last Admin: 05/25/24 07:23 Dose: 5 mg Documented By: SANDRITA Glucose (Glucose Gel 15 Gm Gel..Gram.) 15 gm PO Q15M PRN; Protocol PRN Reason: per Hypoglycemia Standing Ord. Dextrose (D10) 250 mls @ 750 mls/hr IV Q15M PRN; Protocol PRN Reason: per Hypoglycemia Standing Ord. Last Infusion: 05/21/24 08:42 Dose: Infused Documented By: RAMIRO Lactated Ringer's (Lr) 1,000 mls @ 100 mls/hr IVCONT .Q10H [facility] Last Admin: 05/25/24 08:53 Dose: 100 mls/hr Documented By: JOEL Piperacillin Sod/Tazobactam (Sod 3.375 gm/ Sodium Chloride) 50 mls @ 100 mls/hr IV Q6H [facility] Last Infusion: 05/25/24 05:43 Dose: Infused Documented By: GARFIELD Magnesium Hydroxide (Milk Of Magnesia 30 Ml Oral.Susp) 30 ml PO DAILY PRN PRN Reason: Constipation Melatonin (Melatonin 3 Mg Tablet) 6 mg PO BEDTIME PRN PRN Reason: Insomnia Last Admin: 05/24/24 19:08 Dose: 6 mg Documented By: GARFIELD Mirtazapine (Mirtazapine 15 Mg Tablet) 15 mg PO BEDTIME [facility] Last Admin: 05/24/24 19:08 Dose: 15 mg Documented By: GARFIELD Mupirocin (Mupirocin 2 % Oint 22 Gm Tube) 1 appl TOPICAL BID [facility]; Protocol Last Admin: 05/25/24 08:53 Dose: Not Given Documented By: JOEL Non-Admin Reason: Patient Refused Sodium Chloride (0.9 % Sodium Chloride Flush 3 Ml Syringe) 3 ml IVFLUSH QSHIFT [facility] Last Admin: 05/25/24 08:50 Dose: Not Given Documented By: JOEL Non-Admin Reason: IV Running Trazodone HCl (Trazodone Hcl 25 Mg Halftab) 25 mg PO BEDTIME [facility] Last Admin: 05/24/24 19:08 Dose: 25 mg Documented By: GARFIELD Labs 05/24/24 05:03 05/24/24 05:03 Labs: Laboratory Results - last 24 hr 05/24/24 05/24/24 05/24/24 11:42 16:27 19:49 POC Glucose 75 73 82 05/25/24 05/25/24 07:21 07:59 POC Glucose 66 68 Microbiology Microbiology Results: Microbiology 05/22/24 18:27 Urine Culture - Preliminary Urine Catheterized - Ornelas Catheter Culture in progress. Assessment and Plan (1) Coffee ground emesis: Status: Acute (2) SBO (small bowel obstruction): Status: Acute (3) DOUGLAS (acute kidney injury): Status: Acute (4) Hematuria: Status: Acute Plan 78/m with unspecified dementia with mood disorder, BPH with LUTS and chronic suprapubic cath, paroxysmal atrial fibrillation anticoagulated with Eliquis, HTN, GERD, osteoarthritis, history of MRSA UTI/bacteremia, and moderate protein calorie malnutrition, poor historian -information given by Ed physician : sent to ed due to coffee-ground emesis,? Some worsening mentation. coffee ground emesis /gib no active bleed H/h remains stable GI following, may need EGD PO PPI liquid diet, advance as beth holding eliquis for now, will discuss with gi when to restart CT of abdomen show improving ileus ct abd -?sbo, seen by surgery no clinical sbo, possible ileus, conservative management continue diet and advance as beth, repeat ct showed improvement Asp Pneumonia continue Zosyn started 05/20, change to Augmentin before dc UTI--Zosyn, follow culture Bradycardia--assymptomatic, get ecg Hematuria--appear old blood in ornelas cath, monitor hypoglycemia- LR +Dextrose chronic afib, rate controlled currently in sinus rythem hold eliquis due to ?gib Douglas, likely pre renal from renal hypoperfusion, hypotension IVF + blood product, nephrology following, better Metabolic acidosis with , likely from renal failure, resolved. 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 dvt prophylaxis: compressision device Quality Stroke Does the patient have a stroke diagnosis?: No VTE Prior VTE?: No VTE Risk Level:: Medical - moderate - high VTE Device Contraindication: N/A - Device Ordered VTE Drug Contraindication: N/A - Med Ordered
[2024-05-25] MEDS: Omeprazole/Na Bicarb Oral Susp 20 MG/10 ML UD Cup 40 MG PO (10:38)
[2024-05-25 11:01] LABS: Glucose, Whole Blood 91 mg/dL (60-115)
--- NOTE | 2024-05-25 11:09 | P.PNNP_ITS ---
Subjective Subjective Date of Service: 05/25/24 Interval history: 78 y/o male who lives in SNF with dementia, mood disorder, BPH, chronic ornelas, paroxysmal afib, HTN, GERD, OM, protein calorie malnutrition presented 05/20 with coffee ground emesis, worsening mentation. Being treated here for PNA, DOUGLAS, ileus, GIB, anemia Nephrology consulted for DOUGLAS creatinine 04/10 was 1.05 05/20 creatinine 2.68, has been trending down, today 05/22 is 2.00, 05/23 1.67, 05/24 1.57, 05/25 - no labs today UA suggesting UTI - culture showed mixed bacterial etrry; repeat culture 05/[address] 05/20 with normal size/shape attenuation of kidneys, no obstruction or hydronephrouerter; bladder shows mild wall thickening 05/20 arrival pt hypotensive lowest BP 86/50 has naprosyn PRN on home med list, unclear if pt was taking prior (has dementia, poor historian) Physical Exam 2 Vital Signs: Vital Signs: Last Vital Signs Temp 98.0 F 05/25/24 07:18 Pulse 60 05/25/24 07:18 Resp 16 05/25/24 07:18 BP 145/70 H 05/25/24 07:18 Pulse Ox 97 05/25/24 07:18 O2 Del Method Room Air 05/25/24 07:18 BMI result Body Mass Index 17.8 Const: General: no acute distress, alert, awake and confusion O rientation/consciousness: confusion Resp: Effort & Inspection: normal respiratory effort and able to speak in complete sentences Auscultation: clear to auscultation bilaterally Cardio: Jugular venous distension: no JVD Palpation: normal PMI Rate: r egular rate Rhythm: regular rhythm Heart sounds: S1 normal heart sound present and S2 normal heart sound present GI: Palpation (GI): Soft to palpation and nontender : General: Yes no CVA tenderness Back/Spine/Pelvis: Back: no CVA tenderness Skin: Lesions: no lesions Rashes: no rashes Neuro: General: confusion Extrem: General: No edema Objective Data Labs 05/24/24 05:03 05/24/24 05:03 Labs: Laboratory Results - last 24 hr 05/24/24 05/24/24 05/24/24 11:42 16:27 19:49 POC Glucose 75 73 82 05/25/24 05/25/24 05/25/24 07:21 07:59 10:54 POC Glucose 66 68 91 Microbiology Microbiology Results: Microbiology 05/22/24 18:27 Urine Catheterized - Ornelas Catheter Urine Culture - Preliminary Culture in progress. 05/20/24 11:03 Blood - Venous Blood Culture - Preliminary No growth after 48 hours. 05/20/24 10:56 Blood - Venous Blood Culture - Preliminary No growth after 48 hours. 05/20/24 Unknown Urine clean catch - Clean Catch Midstream Urine Culture - Final Procedures Date of Service Date of Service: 05/25/24 Assessment & Plan Assessment and plan (1) DOUGLAS (acute kidney injury): Status: Acute Plan DOUGALS likely tubular injury, secondary volume depletion/hypoperfusion if received naprosyn prior to admission, this would have contributed to DOUGLAS as well labs reveiwed- creatinine has improved with hydration, not yet back to baseline; continue to encourage PO intake, keep intake > output updated urine culture prelim shows yeast, enterococcus/strep, recommend treatment as appropriate avoid hypotension avoid nephrotoxins recommend daily electrolyte and renal function testing will continue to follow Discussed with Dr Hernandez Time Spent With Patient Time: Total time managing care of this patient today ____ minutes. Progress Note: Quality Stroke Does the patient have a stroke diagnosis?: No
--- NOTE | 2024-05-25 12:38 | PC.NURSE ---
right forearm 20g iv patent
--- NOTE | 2024-05-25 12:39 | HO.ANESPROP2 ---
HPI - Anesthesia Eval Consult details Narrative: 78 yo male patient for EGD PMFSH Active Problems Active Problems: All Active Problems Chronic anticoagulation (Acute) Coffee ground emesis (Acute) SBO (small bowel obstruction) (Acute) Left upper lobe pneumonia (Acute) DOUGLAS (acute kidney injury) (Acute) Incomplete emptying of bladder due to benign prostatic hyperplasia (Acute) Urethral stricture (Acute) Obstructive uropathy (Acute) Hematuria (Acute) Acute UTI (Acute) DOUGLAS (acute kidney injury) (Acute) UTI (urinary tract infection) due to urinary indwelling Moreau catheter (Acute) Bacterial infection due to Morganella morganii (Acute) Gram-positive bacteremia (Acute) Acute UTI (Acute) MRSA bacteremia (Acute) Dementia Past Medical History Medical History Suprapubic catheter Coffee ground emesis History of rotator cuff syndrome Tricuspid regurgitation Multiple falls COVID-19 SIRS (systemic inflammatory response syndrome) 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 Polyosteoarthritis Metabolic encephalopathy Depression Anxiety Mood disturbance Vitamin B deficiency Chronic indwelling Moreau catheter GERD (gastroesophageal reflux disease) HTN (hypertension) MRSA bacteremia BPH (benign prostatic hyperplasia) 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 Atrial fibrillation Dementia Family History Family history of problems with anesthesia: Unobtainable Surgical History History of Problems with Anesthesia: Unobtainable Social History Social History Household Members: Unknown / Unable to assess Housing: Unknown / Unable to assess Are you a primary ocular care aide to a significant other at home: No Do you presently have visiting nurse or other home services: No Unable to assess alcohol history related to: Unable to respond Alcohol intake: never Comment: 1:2 sitter in room Patient Tobacco Use Status: Tobacco use Unknown Second Hand Smoke Exposure: No Advance Directives Date on File: 06/14/23 service: No Current occupational status: disabled Meds Allergies Allergy/AdvReac Type Severity Reaction Status Date / Time No Known Allergies Allergy Verified 05/20/24 09:29 Active Medications: Current Medications Acetaminophen (Acetaminophen 325 Mg Tablet) 650 mg PO Q6H PRN PRN Reason: Pain, Mild (Pain Scale 1-3), fever or headache Last Admin: 05/24/24 19:08 Dose: 650 mg Calcium Carbonate (Calcium Carbonate 750 Mg Tab.Chew) 750 mg PO Q4H PRN PRN Reason: Heartburn Cyanocobalamin (Cyanocobalamin (Vitamin B-12) 1,000 Mcg Tablet) 1,000 mcg PO DAILY [facility] Last Admin: 05/25/24 07:23 Dose: 1,000 mcg Doxycycline Monohydrate (Doxycycline Monohydrate 100 Mg Capsule) 100 mg PO Q12H [facility] Last Admin: 05/25/24 05:09 Dose: 100 mg Enoxaparin Sodium (Enoxaparin Sodium 40 Mg/0.4 Ml Syringe) 40 mg SUBCUT Q24H [facility] Last Admin: 05/24/24 19:07 Dose: 40 mg Finasteride (Finasteride 5 Mg Tablet) 5 mg PO DAILY [facility] Last Admin: 05/25/24 07:23 Dose: 5 mg Glucose (Glucose Gel 15 Gm Gel..Gram.) 15 gm PO Q15M PRN; Protocol PRN Reason: per Hypoglycemia Standing Ord. Dextrose (D10) 250 mls @ 750 mls/hr IV Q15M PRN; Protocol PRN Reason: per Hypoglycemia Standing Ord. Last Infusion: 05/21/24 08:42 Dose: Infused Lactated Ringer's (Lr) 1,000 mls @ 100 mls/hr IVCONT .Q10H [facility] Last Admin: 05/25/24 08:53 Dose: 100 mls/hr Piperacillin Sod/Tazobactam (Sod 3.375 gm/ Sodium Chloride) 50 mls @ 100 mls/hr IV Q6H [facility] Last Infusion: 05/25/24 12:30 Dose: Infused Magnesium Hydroxide (Milk Of Magnesia 30 Ml Oral.Susp) 30 ml PO DAILY PRN PRN Reason: Constipation Melatonin (Melatonin 3 Mg Tablet) 6 mg PO BEDTIME PRN PRN Reason: Insomnia Last Admin: 05/24/24 19:08 Dose: 6 mg Mirtazapine (Mirtazapine 15 Mg Tablet) 15 mg PO BEDTIME [facility] Last Admin: 05/24/24 19:08 Dose: 15 mg Mupirocin (Mupirocin 2 % Oint 22 Gm Tube) 1 appl TOPICAL BID [facility]; Protocol Last Admin: 05/25/24 08:53 Dose: Not Given Omeprazole (Omeprazole/Na Bicarb Oral Susp 20 Mg/10 Ml Ud Cup) 40 mg PO DAILY@0630 [facility] Last Admin: 05/25/24 10:38 Dose: 40 mg Sodium Chloride (0.9 % Sodium Chloride Flush 3 Ml Syringe) 3 ml IVFLUSH QSHIFT [facility] Last Admin: 05/25/24 08:50 Dose: Not Given Trazodone HCl (Trazodone Hcl 25 Mg Halftab) 25 mg PO BEDTIME [facility] Last Admin: 05/24/24 19:08 Dose: 25 mg Home Medications ?Medication ?Instructions ?Recorded ?Confirmed ?Last Taken ?Type apixaban 2.5 mg tablet (Eliquis) 2.5 mg PO BID 08/03/22 05/20/24 04/04/24 History cyanocobalamin (vitamin B-12) 1,000 mcg PO DAILY 08/03/22 05/20/24 Unknown History 1,000 mcg tablet famotidine 20 mg tablet 20 mg PO BID 08/03/22 05/20/24 Unknown History finasteride 5 mg tablet 5 mg PO DAILY 08/03/22 05/20/24 Unknown History acetaminophen 325 mg tablet 650 mg PO Q6H PRN Fever Or Pain 02/18/23 05/20/24 Unknown History (Tylenol) bisacodyl 10 mg rectal suppository 10 mg [place] DAILY PRN Constipation 02/18/23 05/20/24 Unknown History magnesium hydroxide 400 mg/5 mL 30 ml PO DAILY PRN Constipation 02/18/23 05/20/24 Unknown History oral suspension (Milk of Magnesia) sennosides 8.6 mg-docusate sodium 1 tab-cap PO BID 02/18/23 05/20/24 Unknown History 50 mg tablet (Senna with Docusate Sodium) sodium phosphates 19 gram-7 118 ml [place] DAILY PRN Constipation 02/18/23 05/20/24 Unknown History gram/118 mL enema (Fleet Enema) methenamine hippurate 1 gram tablet 1 g PO BID 03/17/24 05/20/24 Unknown History mirtazapine 15 mg tablet (Remeron) 15 mg PO BEDTIME 03/17/24 05/20/24 Unknown History trazodone 50 mg tablet 25 mg PO BEDTIME 03/17/24 05/20/24 Unknown History Lactobacillus acidophilus 10,000 mmu cells PO DAILY 05/20/24 05/20/24 Unknown History (Acidophilus capsule) mupirocin 2 % topical ointment 1 appl topical BID 05/20/24 05/20/24 Unknown History naproxen 375 mg tablet 375 mg PO BID PRN Pain (Scale 05/20/24 05/20/24 Unknown History Score 1-3) Exam Height,Weight and Vital Signs: Height 5 ft 6 in Weight 50 kg Last Vital Signs Temp 98.2 F 05/25/24 11:39 Pulse 45 L 05/25/24 11:39 Resp 16 05/25/24 11:39 BP 138/69 05/25/24 11:39 Pulse Ox 97 05/25/24 11:39 O2 Del Method Room Air 05/25/24 11:39 Vital Signs Temp Pulse Resp BP Pulse Ox O2 Del Method 98.1 F 75 18 102/75 95 Room Air 05/20/24 09:26 05/20/24 09:26 05/20/24 09:26 05/20/24 09:26 05/20/24 09:26 05/20/24 09:26 Pertinent Lab Results Pertinent Lab Results: Laboratory Tests 05/20/24 05/20/24 05/20/24 10:19 11:30 21:45 WBC 11.2 H RBC 3.34 L Hgb 10.3 L Hct 31.3 L MCV 93.7 MCH 30.8 MCHC 32.9 RDW 14.6 Plt Count 342 MPV 10.0 Immature Gran % (Auto) 0.4 Neut % (Auto) 75.0 H Lymph % (Auto) 15.4 L [place] % (Auto) 8.0 Eos % (Auto) 0.8 Baso % (Auto) 0.4 Lymph # (Auto) 1.7 [place] # (Auto) 0.9 Eos # (Auto) 0.1 Baso # (Auto) 0.0 Abs Immat Gran (auto) 0.04 H Absolute Neuts (auto) 8.4 H Absolute Nucleated RBC 0.000 Nucleated RBC % (auto) 0.0 Hold Purple Top PT 16.7 H INR 1.4 H Sodium 141 Potassium 4.3 Chloride 102 Carbon Dioxide 27 Anion Gap 16 BUN 82 H Creatinine 2.68 H Estim Creat Clear Calc 16.0 Estimated GFR 23 POC Glucose Random Glucose 97 Lactic Acid 1.1 0.4 L Calcium 9.0 D Magnesium 2.2 Iron 40 L TIBC 214 L % Saturation 19 Unsat Iron Binding 174 Ferritin 353 H Total Bilirubin 0.6 Direct Bilirubin 0.3 AST 35 ALT 12 Alkaline Phosphatase 68 Troponin I High Sens 3.9 D Total Protein 7.0 Albumin 3.4 L Lipase 37 Vitamin B12 Folate Urine Color BROWN Urine Appearance Turbid Urine pH 5.5 Ur Specific [place] 1.020 Urine Protein 100 (2+) H Urine Glucose (UA) 100 H Urine Ketones Trace Urine Blood Large (3+) H Urine Nitrite Positive H Ur Leukocyte Esterase Moderate (2+) H Urine RBC >20 H Urine WBC >50 Ur Squamous Epith Cells 3-5 Other Crystals Present Urine Bacteria Trace Hyaline Casts 0-2 U Random Total Protein Urine Creatinine Stool Occult Blood Influenza Type A (PCR) NEGATIVE Influenza Type B (PCR) NEGATIVE RSV RNA Qual (PCR) NEGATIVE SARS-CoV-2 RNA (RT-PCR) NEGATIVE Blood Type AB Negative Antibody Screen NEGATIVE Crossmatch See Detail 05/20/24 05/21/24 05/21/24 21:46 06:18 07:53 WBC 7.1 RBC 2.41 L D Hgb 7.4 L D Hct 22.7 L D MCV 94.2 MCH 30.7 MCHC 32.6 RDW 14.6 Plt Count 242 D MPV 9.9 Immature Gran % (Auto) Neut % (Auto) Lymph % (Auto) [place] % (Auto) Eos % (Auto) Baso % (Auto) Lymph # (Auto) [place] # (Auto) Eos # (Auto) Baso # (Auto) Abs Immat Gran (auto) Absolute Neuts (auto) Absolute Nucleated RBC 0.000 Nucleated RBC % (auto) 0.0 Hold Purple Top SEE NOTE PT INR Sodium 141 142 Potassium 4.2 4.2 Chloride 110 H 110 H Carbon Dioxide 19 L 18 L Anion Gap 16 18 BUN 73 H 71 H Creatinine 2.27 H 2.28 H Estim Creat Clear Calc 18.9 18.8 Estimated GFR 28 28 POC Glucose 50 L* Random Glucose 72 57 L* Lactic Acid Calcium 7.8 L D 8.1 L Magnesium Iron TIBC % Saturation Unsat Iron Binding Ferritin Total Bilirubin Direct Bilirubin AST ALT Alkaline Phosphatase Troponin I High Sens Total Protein Albumin Lipase Vitamin B12 1046 H Folate 13.8 Urine Color Urine Appearance Urine pH Ur Specific [place] Urine Protein Urine Glucose (UA) Urine Ketones Urine Blood Urine Nitrite Ur Leukocyte Esterase Urine RBC Urine WBC Ur Squamous Epith Cells Other Crystals Urine Bacteria Hyaline Casts U Random Total Protein Urine Creatinine Stool Occult Blood Influenza Type A (PCR) Influenza Type B (PCR) RSV RNA Qual (PCR) SARS-CoV-2 RNA (RT-PCR) Blood Type Antibody Screen Crossmatch 05/21/24 05/21/24 05/21/24 09:15 10:58 12:36 WBC RBC Hgb Hct MCV MCH MCHC RDW Plt Count MPV Immature Gran % (Auto) Neut % (Auto) Lymph % (Auto) [place] % (Auto) Eos % (Auto) Baso % (Auto) Lymph # (Auto) [place] # (Auto) Eos # (Auto) Baso # (Auto) Abs Immat Gran (auto) Absolute Neuts (auto) Absolute Nucleated RBC Nucleated RBC % (auto) Hold Purple Top PT INR Sodium Potassium Chloride Carbon Dioxide Anion Gap BUN Creatinine Estim Creat Clear Calc Estimated GFR POC Glucose 144 H 90 103 Random Glucose Lactic Acid Calcium Magnesium Iron TIBC % Saturation Unsat Iron Binding Ferritin Total Bilirubin Direct Bilirubin AST ALT Alkaline Phosphatase Troponin I High Sens Total Protein Albumin Lipase Vitamin B12 Folate Urine Color Urine Appearance Urine pH Ur Specific [place] Urine Protein Urine Glucose (UA) Urine Ketones Urine Blood Urine Nitrite Ur Leukocyte Esterase Urine RBC Urine WBC Ur Squamous Epith Cells Other Crystals Urine Bacteria Hyaline Casts U Random Total Protein Urine Creatinine Stool Occult Blood Influenza Type A (PCR) Influenza Type B (PCR) RSV RNA Qual (PCR) SARS-CoV-2 RNA (RT-PCR) Blood Type Antibody Screen Crossmatch 05/21/24 05/21/24 05/22/24 16:04 21:16 05:33 WBC 7.0 RBC 3.39 L D Hgb 10.3 L D Hct 31.5 L D MCV 92.9 MCH 30.4 MCHC 32.7 RDW 14.7 Plt Count 259 MPV 10.3 Immature Gran % (Auto) Neut % (Auto) Lymph % (Auto) [place] % (Auto) Eos % (Auto) Baso % (Auto) Lymph # (Auto) [place] # (Auto) Eos # (Auto) Baso # (Auto) Abs Immat Gran (auto) Absolute Neuts (auto) Absolute Nucleated RBC 0.000 Nucleated RBC % (auto) 0.0 Hold Purple Top PT INR Sodium 141 Potassium 3.5 Chloride 111 H Carbon Dioxide 22 Anion Gap 12 BUN 51 H Creatinine 2.00 H Estim Creat Clear Calc 21.5 Estimated GFR 32 POC Glucose 113 99 Random Glucose 87 Lactic Acid Calcium 8.5 Magnesium Iron TIBC % Saturation Unsat Iron Binding Ferritin Total Bilirubin Direct Bilirubin AST ALT Alkaline Phosphatase Troponin I High Sens Total Protein Albumin Lipase Vitamin B12 Folate Urine Color Urine Appearance Urine pH Ur Specific [place] Urine Protein Urine Glucose (UA) Urine Ketones Urine Blood Urine Nitrite Ur Leukocyte Esterase Urine RBC Urine WBC Ur Squamous Epith Cells Other Crystals Urine Bacteria Hyaline Casts U Random Total Protein Urine Creatinine Stool Occult Blood Influenza Type A (PCR) Influenza Type B (PCR) RSV RNA Qual (PCR) SARS-CoV-2 RNA (RT-PCR) Blood Type Antibody Screen Crossmatch 05/22/24 05/22/24 05/22/24 07:37 11:47 13:55 WBC 6.7 RBC 3.44 L Hgb 10.4 L Hct 31.7 L MCV 92.2 MCH 30.2 MCHC 32.8 RDW 14.9 Plt Count 260 MPV 9.6 Immature Gran % (Auto) Neut % (Auto) Lymph % (Auto) [place] % (Auto) Eos % (Auto) Baso % (Auto) Lymph # (Auto) [place] # (Auto) Eos # (Auto) Baso # (Auto) Abs Immat Gran (auto) Absolute Neuts (auto) Absolute Nucleated RBC 0.000 Nucleated RBC % (auto) 0.0 Hold Purple Top PT INR Sodium Potassium Chloride Carbon Dioxide Anion Gap BUN Creatinine Estim Creat Clear Calc Estimated GFR POC Glucose 86 128 H Random Glucose Lactic Acid Calcium Magnesium Iron TIBC % Saturation Unsat Iron Binding Ferritin Total Bilirubin Direct Bilirubin AST ALT Alkaline Phosphatase Troponin I High Sens Total Protein Albumin Lipase Vitamin B12 Folate Urine Color Urine Appearance Urine pH Ur Specific [place] Urine Protein Urine Glucose (UA) Urine Ketones Urine Blood Urine Nitrite Ur Leukocyte Esterase Urine RBC Urine WBC Ur Squamous Epith Cells Other Crystals Urine Bacteria Hyaline Casts U Random Total Protein Urine Creatinine Stool Occult Blood Influenza Type A (PCR) Influenza Type B (PCR) RSV RNA Qual (PCR) SARS-CoV-2 RNA (RT-PCR) Blood Type Antibody Screen Crossmatch 05/22/24 05/22/24 05/22/24 16:19 18:27 20:18 WBC RBC Hgb Hct MCV MCH MCHC RDW Plt Count MPV Immature Gran % (Auto) Neut % (Auto) Lymph % (Auto) [place] % (Auto) Eos % (Auto) Baso % (Auto) Lymph # (Auto) [place] # (Auto) Eos # (Auto) Baso # (Auto) Abs Immat Gran (auto) Absolute Neuts (auto) Absolute Nucleated RBC Nucleated RBC % (auto) Hold Purple Top PT INR Sodium Potassium Chloride Carbon Dioxide Anion Gap BUN Creatinine Estim Creat Clear Calc Estimated GFR POC Glucose 107 98 Random Glucose Lactic Acid Calcium Magnesium Iron TIBC % Saturation Unsat Iron Binding Ferritin Total Bilirubin Direct Bilirubin AST ALT Alkaline Phosphatase Troponin I High Sens Total Protein Albumin Lipase Vitamin B12 Folate Urine Color Urine Appearance Urine pH Ur Specific [place] Urine Protein Urine Glucose (UA) Urine Ketones Urine Blood Urine Nitrite Ur Leukocyte Esterase Urine RBC Urine WBC Ur Squamous Epith Cells Other Crystals Urine Bacteria Hyaline Casts U Random Total Protein 22 H Urine Creatinine 38.32 Stool Occult Blood Influenza Type A (PCR) Influenza Type B (PCR) RSV RNA Qual (PCR) SARS-CoV-2 RNA (RT-PCR) Blood Type Antibody Screen Crossmatch 05/22/24 05/23/24 05/23/24 22:00 07:14 08:28 WBC 6.6 RBC 3.45 L Hgb 10.4 L Hct 31.4 L MCV 91.0 MCH 30.1 MCHC 33.1 RDW 14.6 Plt Count 272 MPV 9.7 Immature Gran % (Auto) Neut % (Auto) Lymph % (Auto) [place] % (Auto) Eos % (Auto) Baso % (Auto) Lymph # (Auto) [place] # (Auto) Eos # (Auto) Baso # (Auto) Abs Immat Gran (auto) Absolute Neuts (auto) Absolute Nucleated RBC 0.000 Nucleated RBC % (auto) 0.0 Hold Purple Top PT INR Sodium 141 Potassium 3.3 Chloride 109 H Carbon Dioxide 23 Anion Gap 12 BUN 29 H Creatinine 1.67 H Estim Creat Clear Calc 25.7 Estimated GFR 40 POC Glucose 86 Random Glucose 100 Lactic Acid Calcium 8.3 L Magnesium Iron TIBC % Saturation Unsat Iron Binding Ferritin Total Bilirubin Direct Bilirubin AST ALT Alkaline Phosphatase Troponin I High Sens Total Protein Albumin Lipase Vitamin B12 Folate Urine Color Urine Appearance Urine pH Ur Specific [place] Urine Protein Urine Glucose (UA) Urine Ketones Urine Blood Urine Nitrite Ur Leukocyte Esterase Urine RBC Urine WBC Ur Squamous Epith Cells Other Crystals Urine Bacteria Hyaline Casts U Random Total Protein Urine Creatinine Stool Occult Blood POSITIVE Influenza Type A (PCR) Influenza Type B (PCR) RSV RNA Qual (PCR) SARS-CoV-2 RNA (RT-PCR) Blood Type Antibody Screen Crossmatch 05/23/24 05/23/24 05/24/24 11:38 20:16 05:03 WBC 7.6 RBC 3.54 L Hgb 10.7 L Hct 32.4 L MCV 91.5 MCH 30.2 MCHC 33.0 RDW 14.6 Plt Count 280 MPV 10.2 Immature Gran % (Auto) Neut % (Auto) Lymph % (Auto) [place] % (Auto) Eos % (Auto) Baso % (Auto) Lymph # (Auto) [place] # (Auto) Eos # (Auto) Baso # (Auto) Abs Immat Gran (auto) Absolute Neuts (auto) Absolute Nucleated RBC 0.000 Nucleated RBC % (auto) 0.0 Hold Purple Top PT INR Sodium 142 Potassium 3.3 Chloride 110 H Carbon Dioxide 22 Anion Gap 13 BUN 23 H Creatinine 1.57 H Estim Creat Clear Calc 27.4 Estimated GFR 43 POC Glucose 87 87 Random Glucose 70 Lactic Acid Calcium 8.3 L Magnesium Iron TIBC % Saturation Unsat Iron Binding Ferritin Total Bilirubin Direct Bilirubin AST ALT Alkaline Phosphatase Troponin I High Sens Total Protein Albumin Lipase Vitamin B12 Folate Urine Color Urine Appearance Urine pH Ur Specific [place] Urine Protein Urine Glucose (UA) Urine Ketones Urine Blood Urine Nitrite Ur Leukocyte Esterase Urine RBC Urine WBC Ur Squamous Epith Cells Other Crystals Urine Bacteria Hyaline Casts U Random Total Protein Urine Creatinine Stool Occult Blood Influenza Type A (PCR) Influenza Type B (PCR) RSV RNA Qual (PCR) SARS-CoV-2 RNA (RT-PCR) Blood Type Antibody Screen Crossmatch 05/24/24 05/24/24 05/24/24 07:26 11:42 16:27 WBC RBC Hgb Hct MCV MCH MCHC RDW Plt Count MPV Immature Gran % (Auto) Neut % (Auto) Lymph % (Auto) [place] % (Auto) Eos % (Auto) Baso % (Auto) Lymph # (Auto) [place] # (Auto) Eos # (Auto) Baso # (Auto) Abs Immat Gran (auto) Absolute Neuts (auto) Absolute Nucleated RBC Nucleated RBC % (auto) Hold Purple Top PT INR Sodium Potassium Chloride Carbon Dioxide Anion Gap BUN Creatinine Estim Creat Clear Calc Estimated GFR POC Glucose 73 75 73 Random Glucose Lactic Acid Calcium Magnesium Iron TIBC % Saturation Unsat Iron Binding Ferritin Total Bilirubin Direct Bilirubin AST ALT Alkaline Phosphatase Troponin I High Sens Total Protein Albumin Lipase Vitamin B12 Folate Urine Color Urine Appearance Urine pH Ur Specific [place] Urine Protein Urine Glucose (UA) Urine Ketones Urine Blood Urine Nitrite Ur Leukocyte Esterase Urine RBC Urine WBC Ur Squamous Epith Cells Other Crystals Urine Bacteria Hyaline Casts U Random Total Protein Urine Creatinine Stool Occult Blood Influenza Type A (PCR) Influenza Type B (PCR) RSV RNA Qual (PCR) SARS-CoV-2 RNA (RT-PCR) Blood Type Antibody Screen Crossmatch 05/24/24 05/25/24 05/25/24 19:49 07:21 07:59 WBC RBC Hgb Hct MCV MCH MCHC RDW Plt Count MPV Immature Gran % (Auto) Neut % (Auto) Lymph % (Auto) [place] % (Auto) Eos % (Auto) Baso % (Auto) Lymph # (Auto) [place] # (Auto) Eos # (Auto) Baso # (Auto) Abs Immat Gran (auto) Absolute Neuts (auto) Absolute Nucleated RBC Nucleated RBC % (auto) Hold Purple Top PT INR Sodium Potassium Chloride Carbon Dioxide Anion Gap BUN Creatinine Estim Creat Clear Calc Estimated GFR POC Glucose 82 66 68 Random Glucose Lactic Acid Calcium Magnesium Iron TIBC % Saturation Unsat Iron Binding Ferritin Total Bilirubin Direct Bilirubin AST ALT Alkaline Phosphatase Troponin I High Sens Total Protein Albumin Lipase Vitamin B12 Folate Urine Color Urine Appearance Urine pH Ur Specific [place] Urine Protein Urine Glucose (UA) Urine Ketones Urine Blood Urine Nitrite Ur Leukocyte Esterase Urine RBC Urine WBC Ur Squamous Epith Cells Other Crystals Urine Bacteria Hyaline Casts U Random Total Protein Urine Creatinine Stool Occult Blood Influenza Type A (PCR) Influenza Type B (PCR) RSV RNA Qual (PCR) SARS-CoV-2 RNA (RT-PCR) Blood Type Antibody Screen Crossmatch 05/25/24 10:54 WBC RBC Hgb Hct MCV MCH MCHC RDW Plt Count MPV Immature Gran % (Auto) Neut % (Auto) Lymph % (Auto) [place] % (Auto) Eos % (Auto) Baso % (Auto) Lymph # (Auto) [place] # (Auto) Eos # (Auto) Baso # (Auto) Abs Immat Gran (auto) Absolute Neuts (auto) Absolute Nucleated RBC Nucleated RBC % (auto) Hold Purple Top PT INR Sodium Potassium Chloride Carbon Dioxide Anion Gap BUN Creatinine Estim Creat Clear Calc Estimated GFR POC Glucose 91 Random Glucose Lactic Acid Calcium Magnesium Iron TIBC % Saturation Unsat Iron Binding Ferritin Total Bilirubin Direct Bilirubin AST ALT Alkaline Phosphatase Troponin I High Sens Total Protein Albumin Lipase Vitamin B12 Folate Urine Color Urine Appearance Urine pH Ur Specific [place] Urine Protein Urine Glucose (UA) Urine Ketones Urine Blood Urine Nitrite Ur Leukocyte Esterase Urine RBC Urine WBC Ur Squamous Epith Cells Other Crystals Urine Bacteria Hyaline Casts U Random Total Protein Urine Creatinine Stool Occult Blood Influenza Type A (PCR) Influenza Type B (PCR) RSV RNA Qual (PCR) SARS-CoV-2 RNA (RT-PCR) Blood Type Antibody Screen Crossmatch Airway Mallampati Class: III TM Dist: >3cm Loose/Missing/Broken Teeth: Yes (Missing some teeth back) Heart: RRR. ?murmur Lungs: CTAB Assessment and Plan Assessment Anesthesia Assessment: Anesthesia Plan Discussed and Chart Reviewed Final Anesthetic Review Family History of Problems with Anesthesia: Unobtainable History of Problems with Anesthesia: Unobtainable NPO: Yes ASA Class: III and Emergency Final Preanesthetic Review: No Changes in Pt Med Stat, Meds/Allgs Chart Reviewed and Consent Obtained/Reviewed (Telephone consent obtained from Patient's guardian) Patient Risk: Intermediate Procedure Risk: Low Assessment/Block/Sedation in SS: Assess/Block/Sedation-SS Anesthetic Plan Anesthetic Plan: TIVA Disposition: Standard PACU
--- NOTE | 2024-05-25 12:46 | MHC.SHP ---
Pre-Procedural Eval Section A - 24 Hr Update-Section A only Date of Service: 05/25/24 The patient is an INPATIENT: Yes The patient has been examined within 24 hours of the surgical procedure. The History & Physical has been completed within 30 days and I have reviewed it.: Yes Section B - Complete if H&P > 30 days Chief Complaint: ?sbo, coffee ground emesis Allergies: Allergies Allergy/AdvReac Type Severity Reaction Status Date / Time No Known Allergies Allergy Verified 05/20/24 09:29 Plan Diagnosis/Plan: Unchanged I have reviewed the history and physical and performed a pertinent physical examination on my patient. No changes have occurred unless specified. Time Spent With Patient Time: Total time managing care of this patient today ____ minutes.
--- NOTE | 2024-05-25 13:37 | PC.NURSE ---
multiple bps in the 60-70s/40s. LR running WO and pt repositioned on back and placed in trendelenburg and appropriatye size bp cuff placed on arm. anesthesia to bedside. bp up to 80/54 and 93/60. will continue to monitor patient.
--- NOTE | 2024-05-25 13:49 | P.OP_ITS ---
Operative Note Operative Note Date of Service: 05/25/24 Narrative: Procedure: Esophagogastroduodenoscopy Endoscopist: Anayeli Plunkett MD Indication: Hematemesis Anesthesia Provider: [place] Curiel CRNA Anesthesia Type: MAC ?? EGD Procedure:?? The procedure, indications, preparation and potential complications were reviewed with the patient, who indicated understanding and gave written informed consent to proceed. A physical exam was performed. The endoscope was introduced through the mouth, and advanced to the second part of duodenum. The mucosa was carefully examined on slow withdrawal of the endoscope. The patient tolerated the procedure well. There were no immediate complications.? ? EGD Findings:? * Esophagus:? Ulcerated mucosa with friability seen from 32 cm to 40 cm including an esophageal ulcer with a pigment spot at 33 cm. Cold forceps biopsies were taken to r/o infectious esophagitis. Hemospray was applied with good effect. * Stomach:? Normal mucosa was noted in the stomach. * Duodenum:? Normal mucosa was noted in the whole of the examined duodenum. ? EGD Impressions:? * Grade D esophagitis * Esophageal ulcer * Normal stomach * Normal duodenum ?? Recommendations:?? * Follow biopsy results. * Cont PPI bid x 8 weeks and then once daily indefinitely * Start Carafate 10 ml QID x 14 days * Can resume Eliquis tmrw AM * Avoid NSAIDs. * Avoid laying down for 45-60 mins post meals
--- NOTE | 2024-05-25 13:49 | W.PM.OPN ---
Operative Note Operative Note Date of Service: 05/25/24 Narrative: Procedure: Esophagogastroduodenoscopy Endoscopist: Anayeli Plunkett MD Indication: Hematemesis Anesthesia Provider: [place] Curiel CRNA Anesthesia Type: MAC ?? EGD Procedure:?? The procedure, indications, preparation and potential complications were reviewed with the patient, who indicated understanding and gave written informed consent to proceed. A physical exam was performed. The endoscope was introduced through the mouth, and advanced to the second part of duodenum. The mucosa was carefully examined on slow withdrawal of the endoscope. The patient tolerated the procedure well. There were no immediate complications.? ? EGD Findings:? Esophagus:? Ulcerated mucosa with friability seen from 32 cm to 40 cm including an esophageal ulcer with a pigment spot at 33 cm. Cold forceps biopsies were taken to r/o infectious esophagitis. Hemospray was applied with good effect. Stomach:? Normal mucosa was noted in the stomach. Duodenum:? Normal mucosa was noted in the whole of the examined duodenum. ? EGD Impressions:? Grade D esophagitis Esophageal ulcer Normal stomach Normal duodenum ?? Recommendations:?? Follow biopsy results. Cont PPI bid x 8 weeks and then once daily indefinitely Start Carafate 10 ml QID x 14 days Can resume Eliquis tmrw AM Avoid NSAIDs. Avoid laying down for 45-60 mins post meals
--- NOTE | 2024-05-25 14:15 | MHC.SLORD ---
Speech Language Pathology Order Status: Attempted to see patient this a.m., patient NPO for EGD procedure. 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
[2024-05-25] MEDS: Lactated Ringers 1,000 ML 50 ML IVCONT (14:58)
[2024-05-25 16:20] LABS: Glucose, Whole Blood 82 mg/dL (60-115)
[2024-05-25 19:33] LABS: Hematocrit 36.8 % (42.0-52.0); Hemoglobin 12.5 g/dl (14.0-18.0); Mean Corpuscular Hemoglobin 30.7 pg (27.0-33.0); Mean Corpuscular Volume 90.4 fL (80.0-98.0); Mean Platelet Volume 9.7 fL (9.4-12.4); Platelet Count 313 X10*3/uL (160-400); Red Blood Count 4.07 X10*6/uL (4.60-5.80); Red Cell Distribution Width 14.5 % (11.0-16.0); White Blood Count 4.4 X10*3/uL (4.8-10.8)
[2024-05-25 19:40] LABS: Anion Gap 13 (12-20); Blood Urea Nitrogen 15 mg/dL (9-16); Carbon Dioxide 26 mmol/L (22-29); Chloride 105 mmol/L (96-108); Creatinine Clr Calc Pharmacy 27.4; Estimated Glomerular Filt Rate 43; Glucose Random 103 mg/dL (60-115); Potassium 3.7 mmol/L (3.3-5.1); Sodium 140 mmol/L (135-145)
[2024-05-25] MEDS: traZODone HCL 25 MG HALFTAB PO (19:57)
[2024-05-25] MEDS: Acetaminophen 325 MG TABLET 650 MG PO (19:57)
[2024-05-25] MEDS: Mirtazapine 15 MG TABLET PO (19:57)
[2024-05-25] MEDS: Melatonin 3 MG TABLET 6 MG PO (19:57)
[2024-05-25] MEDS: Enoxaparin Sodium 40 MG/0.4 ML SYRINGE SUBCUT (19:57)
[2024-05-25 20:18] LABS: Glucose, Whole Blood 95 mg/dL (60-115)
[2024-05-25] MEDS: 0.9 % Sodium Chloride Flush 3 ML SYRINGE IVFLUSH (23:06)
--- NOTE | 2024-05-26 | ECG_ITS ---
Test Reason : bradycardia Blood Pressure : / mmHG Vent. Rate : 048 BPM Atrial Rate : 000 BPM P-R Int : 000 ms QRS Dur : 108 ms QT Int : 518 ms P-R-T Axes : 000 -41 017 degrees QTc Int : 462 ms Sinus bradycardia with occasional Premature ventricular complexes Left axis deviation Low voltage QRS Abnormal ECG When compared with ECG of 20-MAY-2024 11:10, Vent. rate has decreased BY 24 BPM Referred By: Dhiraj Law Electronically Signed By:PEYTON VARGAS MD
[2024-05-26] MEDS: Omeprazole/Na Bicarb Oral Susp 20 MG/10 ML UD Cup 40 MG PO (05:37)
[2024-05-26] MEDS: Doxycycline Monohydrate 100 MG CAPSULE PO (05:37)
[2024-05-26] MEDS: Piperacillin Sodium/Tazobactam 3.375 GM in 0.9 % Sodium Chloride 50 ML IV ×2 (05:37→11:24)
[2024-05-26 07:19] VITALS: BP 135/70; PULSE 48; RESP 16; TEMP 36.6; O2SAT 97
[2024-05-26 07:29] LABS: Glucose, Whole Blood 74 mg/dL (60-115)
[2024-05-26] MEDS: Cyanocobalamin (Vitamin B-12) 1,000 MCG TABLET 1000 MCG PO (08:43)
[2024-05-26] MEDS: Apixaban 2.5 MG TABLET PO ×2 (08:43→22:25)
[2024-05-26] MEDS: Finasteride 5 MG TABLET PO (08:43)
[2024-05-26] MEDS: Sucralfate Oral Suspension 1 GM/10 ML ORAL.SUSP PO ×2 (08:43→22:26)
[2024-05-26] MEDS: Lactated Ringers 1,000 ML 100 ML IVCONT (08:45)
[2024-05-26] MEDS: Mupirocin 2 % Oint 22 GM TUBE 1 APPL TOPICAL (08:51)
[2024-05-26 08:53] LABS: Hematocrit 35.8 % (42.0-52.0); Hemoglobin 11.4 g/dl (14.0-18.0); Mean Corpuscular HGB Conc 31.8 g/dl (31.0-36.0); Mean Corpuscular Volume 94.2 fL (80.0-98.0); Mean Platelet Volume 9.9 fL (9.4-12.4); Platelet Count 285 X10*3/uL (160-400); Red Cell Distribution Width 14.6 % (11.0-16.0); White Blood Count 5.9 X10*3/uL (4.8-10.8)
--- NOTE | 2024-05-26 09:03 | PM.PNGS ---
Subjective Subjective Date of Service: 05/26/24 Interval history: As per nursing staff, tolerating diet No reported vomiting Heart rate goes down when he is sleeping Patient says he is ?okay? Denies abdominal pain at this time Physical Exam Vital Signs: Vital Signs: Last Vital Signs Temp 97.8 F 05/26/24 07:19 Pulse 48 L 05/26/24 07:19 Resp 16 05/26/24 07:19 BP 135/70 05/26/24 07:19 Pulse Ox 97 05/26/24 07:19 O2 Del Method Room Air 05/26/24 07:19 BMI result Body Mass Index 17.8 Const: General: no acute distress Resp: Effort & Inspection: normal respiratory effort Cardio: Rate: bradycardic GI: Palpation (GI): Soft to palpation, not firm, nontender and no guarding Objective Data Active Medications Acetaminophen (Acetaminophen 325 Mg Tablet) 650 mg PO Q6H PRN PRN Reason: Pain, Mild (Pain Scale 1-3), fever or headache Last Admin: 05/25/24 19:57 Dose: 650 mg Documented By: GARFIELD Apixaban (Apixaban 2.5 Mg Tablet) 2.5 mg PO BID [facility] Last Admin: 05/26/24 08:43 Dose: 2.5 mg Documented By: KIM Calcium Carbonate (Calcium Carbonate 750 Mg Tab.Chew) 750 mg PO Q4H PRN PRN Reason: Heartburn Cyanocobalamin (Cyanocobalamin (Vitamin B-12) 1,000 Mcg Tablet) 1,000 mcg PO DAILY [facility] Last Admin: 05/26/24 08:43 Dose: 1,000 mcg Documented By: KIM Doxycycline Monohydrate (Doxycycline Monohydrate 100 Mg Capsule) 100 mg PO Q12H [facility] Last Admin: 05/26/24 05:37 Dose: 100 mg Documented By: GARFIELD Finasteride (Finasteride 5 Mg Tablet) 5 mg PO DAILY [facility] Last Admin: 05/26/24 08:43 Dose: 5 mg Documented By: KIM Glucose (Glucose Gel 15 Gm Gel..Gram.) 15 gm PO Q15M PRN; Protocol PRN Reason: per Hypoglycemia Standing Ord. Dextrose (D10) 250 mls @ 750 mls/hr IV Q15M PRN; Protocol PRN Reason: per Hypoglycemia Standing Ord. Last Infusion: 05/21/24 08:42 Dose: Infused Documented By: RAMIRO Lactated Ringer's (Lr) 1,000 mls @ 100 mls/hr IVCONT .Q10H [facility] Last Admin: 05/26/24 08:45 Dose: 100 mls/hr Documented By: KIM Piperacillin Sod/Tazobactam (Sod 3.375 gm/ Sodium Chloride) 50 mls @ 100 mls/hr IV Q6H [facility] Last Infusion: 05/26/24 06:12 Dose: Infused Documented By: GARFIELD Magnesium Hydroxide (Milk Of Magnesia 30 Ml Oral.Susp) 30 ml PO DAILY PRN PRN Reason: Constipation Melatonin (Melatonin 3 Mg Tablet) 6 mg PO BEDTIME PRN PRN Reason: Insomnia Last Admin: 05/25/24 19:57 Dose: 6 mg Documented By: GARFIELD Mirtazapine (Mirtazapine 15 Mg Tablet) 15 mg PO BEDTIME [facility] Last Admin: 05/25/24 19:57 Dose: 15 mg Documented By: GARFIELD Mupirocin (Mupirocin 2 % Oint 22 Gm Tube) 1 appl TOPICAL BID [facility]; Protocol Last Admin: 05/26/24 08:51 Dose: 1 appl Documented By: KIM Omeprazole (Omeprazole/Na Bicarb Oral Susp 20 Mg/10 Ml Ud Cup) 40 mg PO DAILY@0630 [facility] Last Admin: 05/26/24 05:37 Dose: 40 mg Documented By: GARFIELD Sodium Chloride (0.9 % Sodium Chloride Flush 3 Ml Syringe) 3 ml IVFLUSH QSHIFT [facility] Last Admin: 05/26/24 07:33 Dose: Not Given Documented By: KIM Non-Admin Reason: IV Running Sucralfate (Sucralfate Oral Suspension 1 Gm/10 Ml Oral.Susp) 1 gm PO BID [facility] Last Admin: 05/26/24 08:43 Dose: 1 gm Documented By: KIM Trazodone HCl (Trazodone Hcl 25 Mg Halftab) 25 mg PO BEDTIME [facility] Last Admin: 05/25/24 19:57 Dose: 25 mg Documented By: GARFIELD Labs 05/26/24 08:36 05/25/24 19:13 Labs: Laboratory Results - last 24 hr 05/25/24 05/25/24 05/25/24 10:54 16:15 19:13 MCV 90.4 MCH 30.7 MCHC 34.0 RDW 14.5 Plt Count 313 MPV 9.7 Absolute Nucleated RBC 0.000 Nucleated RBC % (auto) 0.0 Anion Gap 13 Estim Creat Clear Calc 27.4 Estimated GFR 43 POC Glucose 91 82 Random Glucose 103 Calcium 8.0 L 05/25/24 05/26/24 05/26/24 20:09 07:24 08:36 MCV 94.2 MCH 30.0 MCHC 31.8 RDW 14.6 Plt Count 285 MPV 9.9 Absolute Nucleated RBC 0.000 Nucleated RBC % (auto) 0.0 Anion Gap Estim Creat Clear Calc Estimated GFR POC Glucose 95 74 Random Glucose Calcium Microbiology Microbiology Results: Microbiology 05/20/24 11:03 Blood Culture - Final Blood - Venous No growth after 5 days. 05/20/24 10:56 Blood Culture - Final Blood - Venous No growth after 5 days. 05/22/24 18:27 Urine Culture - Preliminary Urine Catheterized - Moreau Catheter Yeast Enterococcus/Streptococcus sp Procedures Date of Service Date of Service: 05/26/24 Progress Note: A&P Assessment and plan (1) Coffee ground emesis: Status: Acute Assessment and Plan: Clinically not obstructed Diet as tolerated Abdomen is soft and benign He has had bowel movements reported Rest of workup as per hospitalist service, and GI Time Spent With Patient Time: Total time managing care of this patient today ____ minutes. Quality Stroke Does the patient have a stroke diagnosis?: No VTE Prior VTE?: No VTE Risk Level:: Medical - moderate - high VTE Device Contraindication: N/A - Device Ordered VTE Drug Contraindication: N/A - Med Ordered
[2024-05-26 09:05] LABS: Anion Gap 15 (12-20); Blood Urea Nitrogen 16 mg/dL (9-16); Calcium 7.9 mg/dL (8.4-10.2); Carbon Dioxide 21 mmol/L (22-29); Chloride 108 mmol/L (96-108); Estimated Glomerular Filt Rate 46; Glucose Random 85 mg/dL (60-115); Potassium 3.7 mmol/L (3.3-5.1); Sodium 140 mmol/L (135-145)
--- NOTE | 2024-05-26 09:05 | P.PNNP_ITS ---
Subjective Subjective Date of Service: 05/26/24 Interval history: 78 y/o male who lives in SNF with dementia, mood disorder, BPH, chronic ornelas, paroxysmal afib, HTN, GERD, OM, protein calorie malnutrition presented 05/20 with coffee ground emesis, worsening mentation. Being treated here for PNA, DOUGLAS, ileus, GIB, anemia Nephrology consulted for DOUGLAS creatinine 04/10 was 1.05 05/20 creatinine 2.68, has been trending down, today 05/22 is 2.00, 05/23 1.67, 05/24 1.57, 05/25 evening creatinine 1.57, 05/26 1.48 UA suggesting UTI - culture showed mixed bacterial terry; repeat culture 05/[address] 05/20 with normal size/shape attenuation of kidneys, no obstruction or hydronephrouerter; bladder shows mild wall thickening 05/20 arrival pt hypotensive lowest BP 86/50 has naprosyn PRN on home med list, unclear if pt was taking prior (has dementia, poor historian) of note, had episode of bradycardia 05/26 a.m., asymptomatic. Physical Exam 2 Vital Signs: Vital Signs: Last Vital Signs Temp 97.8 F 05/26/24 07:19 Pulse 48 L 05/26/24 07:19 Resp 16 05/26/24 07:19 BP 135/70 05/26/24 07:19 Pulse Ox 97 05/26/24 07:19 O2 Del Method Room Air 05/26/24 07:19 BMI result Body Mass Index 17.8 Const: General: no acute distress, alert, awake and confusion O rientation/consciousness: confusion Resp: Effort & Inspection: normal respiratory effort and able to speak in complete sentences Auscultation: clear to auscultation bilaterally Cardio: Jugular venous distension: no JVD Palpation: normal PMI Rate: r egular rate Rhythm: regular rhythm Heart sounds: S1 normal heart sound present and S2 normal heart sound present GI: Palpation (GI): Soft to palpation and nontender : General: Yes no CVA tenderness Back/Spine/Pelvis: Back: no CVA tenderness Skin: Lesions: no lesions Rashes: no rashes Neuro: General: confusion Extrem: General: No edema Objective Data Labs 05/26/24 08:36 05/26/24 08:36 Labs: Laboratory Results - last 24 hr 05/25/24 05/25/24 05/25/24 10:54 16:15 19:13 WBC 4.4 L RBC 4.07 L Hgb 12.5 L Hct 36.8 L MCV 90.4 MCH 30.7 MCHC 34.0 RDW 14.5 Plt Count 313 MPV 9.7 Absolute Nucleated RBC 0.000 Nucleated RBC % (auto) 0.0 Sodium 140 Potassium 3.7 Chloride 105 Carbon Dioxide 26 Anion Gap 13 BUN 15 Creatinine 1.57 H Estim Creat Clear Calc 27.4 Estimated GFR 43 POC Glucose 91 82 Random Glucose 103 Calcium 8.0 L 05/25/24 05/26/24 05/26/24 20:09 07:24 08:36 WBC 5.9 RBC 3.80 L Hgb 11.4 L Hct 35.8 L MCV 94.2 MCH 30.0 MCHC 31.8 RDW 14.6 Plt Count 285 MPV 9.9 Absolute Nucleated RBC 0.000 Nucleated RBC % (auto) 0.0 Sodium Potassium Chloride Carbon Dioxide Anion Gap BUN Creatinine Estim Creat Clear Calc Estimated GFR POC Glucose 95 74 Random Glucose Calcium Microbiology Microbiology Results: Microbiology 05/20/24 11:03 Blood - Venous Blood Culture - Final No growth after 5 days. 05/20/24 10:56 Blood - Venous Blood Culture - Final No growth after 5 days. 05/22/24 18:27 Urine Catheterized - Ornelas Catheter Urine Culture - Preliminary Yeast Enterococcus/Streptococcus sp 05/20/24 Unknown Urine clean catch - Clean Catch Midstream Urine Culture - Final Procedures Date of Service Date of Service: 05/26/24 Assessment & Plan Assessment and plan (1) DOUGLAS (acute kidney injury): Status: Acute Plan DOUGLAS likely tubular injury, secondary volume depletion/hypoperfusion if received naprosyn prior to admission, this would have contributed to DOUGLAS as well labs reviewed- creatinine continues to improve, not yet back to baseline; continue to encourage PO intake, keep intake > output avoid hypotension avoid nephrotoxins recommend nephrology outpatient follow up within 2 weeks upon discharge. Discussed with Dr Hernandez Time Spent With Patient Time: Total time managing care of this patient today ____ minutes. Progress Note: Quality Stroke Does the patient have a stroke diagnosis?: No
--- NOTE | 2024-05-26 10:22 | P.PNIM_ITS ---
Subjective Subjective Date of Service: 05/26/24 Interval History: f/u on gib bleed, anemia, renal failure, ileus interval history:Pt is being having episodes of bradycardia, as low as 29 but no sinus pause Physical Exam 2 Vital Signs: Vital Signs: Last Vital Signs Temp 97.8 F 05/26/24 07:19 Pulse 48 L 05/26/24 07:19 Resp 16 05/26/24 07:19 BP 135/70 05/26/24 07:19 Pulse Ox 97 05/26/24 07:19 O2 Del Method Room Air 05/26/24 07:19 BMI result Body Mass Index 17.8 Const: Other: General: alert but not oriented Resp: CTA bilateral CVS: S1,S2,RRR GI: +BS, NT, no distention Skin: No rash Neuro: motor grossly intact Psych: flat Objective Data Active Medications Acetaminophen (Acetaminophen 325 Mg Tablet) 650 mg PO Q6H PRN PRN Reason: Pain, Mild (Pain Scale 1-3), fever or headache Last Admin: 05/25/24 19:57 Dose: 650 mg Documented By: GARFIELD Apixaban (Apixaban 2.5 Mg Tablet) 2.5 mg PO BID [facility] Last Admin: 05/26/24 08:43 Dose: 2.5 mg Documented By: KIM Calcium Carbonate (Calcium Carbonate 750 Mg Tab.Chew) 750 mg PO Q4H PRN PRN Reason: Heartburn Cyanocobalamin (Cyanocobalamin (Vitamin B-12) 1,000 Mcg Tablet) 1,000 mcg PO DAILY [facility] Last Admin: 05/26/24 08:43 Dose: 1,000 mcg Documented By: KIM Doxycycline Monohydrate (Doxycycline Monohydrate 100 Mg Capsule) 100 mg PO Q12H [facility] Last Admin: 05/26/24 05:37 Dose: 100 mg Documented By: GARFIELD Finasteride (Finasteride 5 Mg Tablet) 5 mg PO DAILY [facility] Last Admin: 05/26/24 08:43 Dose: 5 mg Documented By: KIM Glucose (Glucose Gel 15 Gm Gel..Gram.) 15 gm PO Q15M PRN; Protocol PRN Reason: per Hypoglycemia Standing Ord. Dextrose (D10) 250 mls @ 750 mls/hr IV Q15M PRN; Protocol PRN Reason: per Hypoglycemia Standing Ord. Last Infusion: 05/21/24 08:42 Dose: Infused Documented By: RAMIRO Lactated Ringer's (Lr) 1,000 mls @ 100 mls/hr IVCONT .Q10H [facility] Last Admin: 05/26/24 08:45 Dose: 100 mls/hr Documented By: KIM Piperacillin Sod/Tazobactam (Sod 3.375 gm/ Sodium Chloride) 50 mls @ 100 mls/hr IV Q6H [facility] Last Infusion: 05/26/24 06:12 Dose: Infused Documented By: GARFIELD Magnesium Hydroxide (Milk Of Magnesia 30 Ml Oral.Susp) 30 ml PO DAILY PRN PRN Reason: Constipation Melatonin (Melatonin 3 Mg Tablet) 6 mg PO BEDTIME PRN PRN Reason: Insomnia Last Admin: 05/25/24 19:57 Dose: 6 mg Documented By: GARFIELD Mirtazapine (Mirtazapine 15 Mg Tablet) 15 mg PO BEDTIME [facility] Last Admin: 05/25/24 19:57 Dose: 15 mg Documented By: GARFIELD Mupirocin (Mupirocin 2 % Oint 22 Gm Tube) 1 appl TOPICAL BID [facility]; Protocol Last Admin: 05/26/24 08:51 Dose: 1 appl Documented By: KIM Omeprazole (Omeprazole/Na Bicarb Oral Susp 20 Mg/10 Ml Ud Cup) 40 mg PO DAILY@0630 [facility] Last Admin: 05/26/24 05:37 Dose: 40 mg Documented By: GARFIELD Sodium Chloride (0.9 % Sodium Chloride Flush 3 Ml Syringe) 3 ml IVFLUSH QSHIFT [facility] Last Admin: 05/26/24 07:33 Dose: Not Given Documented By: KIM Non-Admin Reason: IV Running Sucralfate (Sucralfate Oral Suspension 1 Gm/10 Ml Oral.Susp) 1 gm PO BID [facility] Last Admin: 05/26/24 08:43 Dose: 1 gm Documented By: KIM Trazodone HCl (Trazodone Hcl 25 Mg Halftab) 25 mg PO BEDTIME [facility] Last Admin: 05/25/24 19:57 Dose: 25 mg Documented By: GARFIELD Labs 05/26/24 08:36 05/26/24 08:36 Labs: Laboratory Results - last 24 hr 05/25/24 05/25/24 05/25/24 10:54 16:15 19:13 MCV 90.4 MCH 30.7 MCHC 34.0 RDW 14.5 Plt Count 313 MPV 9.7 Absolute Nucleated RBC 0.000 Nucleated RBC % (auto) 0.0 Anion Gap 13 Estim Creat Clear Calc 27.4 Estimated GFR 43 POC Glucose 91 82 Random Glucose 103 Calcium 8.0 L 05/25/24 05/26/24 05/26/24 20:09 07:24 08:36 MCV 94.2 MCH 30.0 MCHC 31.8 RDW 14.6 Plt Count 285 MPV 9.9 Absolute Nucleated RBC 0.000 Nucleated RBC % (auto) 0.0 Anion Gap 15 Estim Creat Clear Calc 29.0 Estimated GFR 46 POC Glucose 95 74 Random Glucose 85 Calcium 7.9 L Microbiology Microbiology Results: Microbiology 05/20/24 11:03 Blood Culture - Final Blood - Venous No growth after 5 days. 05/20/24 10:56 Blood Culture - Final Blood - Venous No growth after 5 days. 05/22/24 18:27 Urine Culture - Preliminary Urine Catheterized - Ornelas Catheter Yeast Enterococcus/Streptococcus sp Assessment and Plan (1) Coffee ground emesis: Status: Acute (2) SBO (small bowel obstruction): Status: Acute (3) DOUGLAS (acute kidney injury): Status: Acute (4) Hematuria: Status: Acute Plan 78/m with unspecified dementia with mood disorder, BPH with LUTS and chronic suprapubic cath, paroxysmal atrial fibrillation anticoagulated with Eliquis, HTN, GERD, osteoarthritis, history of MRSA UTI/bacteremia, and moderate protein calorie malnutrition, poor historian -information given by Ed physician : sent to ed due to coffee-ground emesis,? Some worsening mentation. coffee ground emesis /gib no active bleed H/h remains stable had EGD 05/25, gastritis s/p hemospray no active bleed, gi recommend ppi bid and carafate 10 ml bid liquid diet, advance following swallow eval ct abd -?sbo, seen by surgery no clinical sbo, possible ileus, conservative management continue diet and advance as beth, repeat ct showed improvement Asp Pneumonia continue Zosyn started 11/16, dc after 7 days (today) UTI--Zosyn, follow culture Bradycardia--assymptomatic, get ecg Hematuria--appear old blood in ornelas cath, monitor hypoglycemia- LR +Dextrose chronic afib, rate controlled with episodes of bradycardia, no sinus pause restarted eliquis for afib. cardiology consult, ecg [facility], likely pre renal from renal hypoperfusion, hypotension -creatinine trending down, if dc outpatient nephro follow up Metabolic acidosis with , likely from renal failure, resolved. 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 dvt prophylaxis: compressision device Quality Stroke Does the patient have a stroke diagnosis?: No VTE Prior VTE?: No VTE Risk Level:: Medical - moderate - high VTE Device Contraindication: N/A - Device Ordered VTE Drug Contraindication: N/A - Med Ordered
[2024-05-26 11:04] LABS: Glucose, Whole Blood 112 mg/dL (60-115)
[2024-05-26 12:55] VITALS: BP 139/82; PULSE 52; RESP 18; TEMP 37; O2SAT 98
[2024-05-26] MEDS: Amoxicillin/Potassium Clav 500 MG TABLET PO (13:42)
--- NOTE | 2024-05-26 13:49 | HO.POSTANES ---
Post Anesthesia Evaluation Post Anesthesia Evaluation Date of Service: 05/25/24 Vital Signs: Vital Signs Temp Pulse Resp BP Pulse Ox O2 Del Method 05/26/24 12:55 98.6 F 52 18 139/82 98 Room Air 05/26/24 07:19 97.8 F 48 L 16 135/70 97 Room Air Anesthesia: Monitored Mental Status: Awake Pain Control: Satisfactory Nausea/Vomiting: None Hydration: Adequate Anesthesia-Related Issues: No Anes. Related Issues
--- NOTE | 2024-05-26 13:54 | PM.CNCAR ---
History of Present Illness History of Present Illness Date of Service: 05/26/24 [facility] Consult reason: other (Bradycardia) Chief complaint: ?sbo, coffee ground emesis Narrative: I was consulted to see Oscar in cardiology consultation today for noted asymptomatic bradycardia on telemetry. Not sure as to why patient was on telemetry although patient was noted to have sinus bradycardia up to heart rate in the 30s. Remains in the 40s. He has no symptoms related to it although this is difficult to a certain. However at rest he has no lightheadedness, pallor, syncope. He denies any lightheadedness. He denies any shortness of breath chest pain. Mostly bed-bound. He has prior history of dementia, recurrent UTI, obstructive uropathy and urethral stricture, possible small-bowel obstruction, acute kidney injury, paroxysmal atrial fibrillation. Other history not obtainable from the patient. Patient was admitted here for infectious reason and currently noted to have asymptomatic sinus bradycardia. Cardiology consult was sought. 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 Polyosteoarthritis Metabolic encephalopathy Depression Anxiety Mood disturbance Vitamin B deficiency Chronic indwelling Moreau catheter GERD (gastroesophageal reflux disease) HTN (hypertension) MRSA bacteremia BPH (benign prostatic hyperplasia) Hx of shelter use of blood thinners Atrial fibrillation Dementia Social History Social History Household Members: Unknown / Unable to assess Housing: Unknown / Unable to assess Are you a primary pet care assistant to a significant other at home: No Do you presently have visiting nurse or other home services: No Unable to assess alcohol history related to: Unable to respond Alcohol intake: never Comment: 1:2 sitter in room Patient Tobacco Use Status: Tobacco use Unknown Second Hand Smoke Exposure: No Advance Directives Date on File: 06/14/23 service: No Current occupational status: disabled Meds Allergies Allergy/AdvReac Type Severity Reaction Status Date / Time No Known Allergies Allergy Verified 05/20/24 09:29 Active Medications: Current Medications Acetaminophen (Acetaminophen 325 Mg Tablet) 650 mg PO Q6H PRN PRN Reason: Pain, Mild (Pain Scale 1-3), fever or headache Last Admin: 05/25/24 19:57 Dose: 650 mg Amoxicillin/Clavulanate Potassium (Amoxicillin/Potassium Clav 500 Mg Tablet) 500 mg PO BID [facility] Last Admin: 05/26/24 13:42 Dose: 500 mg Apixaban (Apixaban 2.5 Mg Tablet) 2.5 mg PO BID [facility] Last Admin: 05/26/24 08:43 Dose: 2.5 mg Calcium Carbonate (Calcium Carbonate 750 Mg Tab.Chew) 750 mg PO Q4H PRN PRN Reason: Heartburn Cyanocobalamin (Cyanocobalamin (Vitamin B-12) 1,000 Mcg Tablet) 1,000 mcg PO DAILY [facility] Last Admin: 05/26/24 08:43 Dose: 1,000 mcg Finasteride (Finasteride 5 Mg Tablet) 5 mg PO DAILY [facility] Last Admin: 05/26/24 08:43 Dose: 5 mg Glucose (Glucose Gel 15 Gm Gel..Gram.) 15 gm PO Q15M PRN; Protocol PRN Reason: per Hypoglycemia Standing Ord. Dextrose (D10) 250 mls @ 750 mls/hr IV Q15M PRN; Protocol PRN Reason: per Hypoglycemia Standing Ord. Last Infusion: 05/21/24 08:42 Dose: Infused Magnesium Hydroxide (Milk Of Magnesia 30 Ml Oral.Susp) 30 ml PO DAILY PRN PRN Reason: Constipation Melatonin (Melatonin 3 Mg Tablet) 6 mg PO BEDTIME PRN PRN Reason: Insomnia Last Admin: 05/25/24 19:57 Dose: 6 mg Mirtazapine (Mirtazapine 15 Mg Tablet) 15 mg PO BEDTIME [facility] Last Admin: 05/25/24 19:57 Dose: 15 mg Mupirocin (Mupirocin 2 % Oint 22 Gm Tube) 1 appl TOPICAL BID [facility]; Protocol Last Admin: 05/26/24 08:51 Dose: 1 appl Omeprazole (Omeprazole/Na Bicarb Oral Susp 20 Mg/10 Ml Ud Cup) 40 mg PO DAILY@0630 [facility] Last Admin: 05/26/24 05:37 Dose: 40 mg Sodium Chloride (0.9 % Sodium Chloride Flush 3 Ml Syringe) 3 ml IVFLUSH QSHIFT [facility] Last Admin: 05/26/24 07:33 Dose: Not Given Sucralfate (Sucralfate Oral Suspension 1 Gm/10 Ml Oral.Susp) 1 gm PO BID [facility] Last Admin: 05/26/24 08:43 Dose: 1 gm Trazodone HCl (Trazodone Hcl 25 Mg Halftab) 25 mg PO BEDTIME [facility] Last Admin: 05/25/24 19:57 Dose: 25 mg Home Medications ?Medication ?Instructions ?Recorded ?Confirmed ?Last Taken ?Type apixaban 2.5 mg tablet (Eliquis) 2.5 mg PO BID 08/03/22 05/20/24 04/04/24 History cyanocobalamin (vitamin B-12) 1,000 mcg PO DAILY 08/03/22 05/20/24 Unknown History 1,000 mcg tablet famotidine 20 mg tablet 20 mg PO BID 08/03/22 05/20/24 Unknown History finasteride 5 mg tablet 5 mg PO DAILY 08/03/22 05/20/24 Unknown History acetaminophen 325 mg tablet 650 mg PO Q6H PRN Fever Or Pain 02/18/23 05/20/24 Unknown History (Tylenol) bisacodyl 10 mg rectal suppository 10 mg [place] DAILY PRN Constipation 02/18/23 05/20/24 Unknown History magnesium hydroxide 400 mg/5 mL 30 ml PO DAILY PRN Constipation 02/18/23 05/20/24 Unknown History oral suspension (Milk of Magnesia) sennosides 8.6 mg-docusate sodium 1 tab-cap PO BID 02/18/23 05/20/24 Unknown History 50 mg tablet (Senna with Docusate Sodium) sodium phosphates 19 gram-7 118 ml [place] DAILY PRN Constipation 02/18/23 05/20/24 Unknown History gram/118 mL enema (Fleet Enema) methenamine hippurate 1 gram tablet 1 g PO BID 03/17/24 05/20/24 Unknown History mirtazapine 15 mg tablet (Remeron) 15 mg PO BEDTIME 03/17/24 05/20/24 Unknown History trazodone 50 mg tablet 25 mg PO BEDTIME 03/17/24 05/20/24 Unknown History Lactobacillus acidophilus 10,000 mmu cells PO DAILY 05/20/24 05/20/24 Unknown History (Acidophilus capsule) mupirocin 2 % topical ointment 1 appl topical BID 05/20/24 05/20/24 Unknown History naproxen 375 mg tablet 375 mg PO BID PRN Pain (Scale 05/20/24 05/20/24 Unknown History Score 1-3) Physical Exam Vital Signs: Vital Signs: Last Vital Signs Temp 98.6 F 05/26/24 12:55 Pulse 52 05/26/24 12:55 Resp 18 05/26/24 12:55 BP 139/82 05/26/24 12:55 Pulse Ox 98 05/26/24 12:55 O2 Del Method Room Air 05/26/24 12:55 BMI result Body Mass Index 17.8 Const: General: cooperative, comfortable, no acute distress, alert, awake and confusion Nutritional Appearance: malnourished Orientation/consciousness: confusion HEENT: Head: Yes normocephalic and Yes atraumatic Neck: Neck: Yes trachea midline, Yes supple and Yes no JVD Resp: Effort & Inspection: decreased respiratory effort Auscultation: diminished lung sounds Cardio: Jugular venous distension: no JVD Rate: bradycardic Rhythm: regular rhythm Heart sounds: S1 normal heart sound present, S2 normal heart sound present, no click, no gallops and no murmurs GI: Auscultation: normal bowel sounds Skin: General skin exam: no rashes or lesions noted Neuro: General: no focal motor deficits and confusion Extrem: General: Yes no clubbing, cyanosis or edema Objective Labs and Meds 05/26/24 08:36 05/26/24 08:36 Lab results: Laboratory Results - last 24 hr 05/25/24 05/25/24 05/25/24 16:15 19:13 20:09 WBC 4.4 L RBC 4.07 L Hgb 12.5 L Hct 36.8 L MCV 90.4 MCH 30.7 MCHC 34.0 RDW 14.5 Plt Count 313 MPV 9.7 Absolute Nucleated RBC 0.000 Nucleated RBC % (auto) 0.0 Sodium 140 Potassium 3.7 Chloride 105 Carbon Dioxide 26 Anion Gap 13 BUN 15 Creatinine 1.57 H Estim Creat Clear Calc 27.4 Estimated GFR 43 POC Glucose 82 95 Random Glucose 103 Calcium 8.0 L 05/26/24 05/26/24 05/26/24 07:24 08:36 10:56 WBC 5.9 RBC 3.80 L Hgb 11.4 L Hct 35.8 L MCV 94.2 MCH 30.0 MCHC 31.8 RDW 14.6 Plt Count 285 MPV 9.9 Absolute Nucleated RBC 0.000 Nucleated RBC % (auto) 0.0 Sodium 140 Potassium 3.7 Chloride 108 Carbon Dioxide 21 L Anion Gap 15 BUN 16 Creatinine 1.48 H Estim Creat Clear Calc 29.0 Estimated GFR 46 POC Glucose 74 112 Random Glucose 85 Calcium 7.9 L Assessment and Plan (1) Sinus bradycardia: Status: Acute Asymptomatic sinus bradycardia in this elderly gentleman with significant cognitive impairment as well as prior history of paroxysmal atrial fibrillation. Possibly is suggestive sinoatrial anne dysfunction although high vagal tone related to small-bowel obstruction is possible as well. He is currently not on any apparent rate lowering medications. Would cross check with pharmacy to see if any of his psychoactive medications good potential cause sinus bradycardia and if so should be discontinued. Avoid rate lowering medication in the past. However given complete lack of symptoms and no hemodynamic instability, I would think there is no need for additional therapy such as a permanent pacemaker placement at this point time. Continue supportive care. Continue oral anticoagulation for paroxysmal atrial fibrillation as planned. Will sign of the case. Thank you for allowing me to partake in his care Procedures Date of Service Date of Service: 05/26/24
[2024-05-26 14:05] VITALS: O2SAT 98
--- NOTE | 2024-05-26 14:06 | MHC.SL.SWA ---
Speech Pathologist Impression: WFL Risk of Aspiration Due to: Neurological Condition Reduced Cognition Dysphasia Diet Status: REG/THIN once cleared from Full Liquids Liquid Consistency and Strategies for Safe Swallow: Liquid Intake Recommendation: Thin Liquid Intake Strategies: Small Sips Solid Food Consistency: Dietary Recommendations: Regular Additional Modifications to Solid Foods: Oral mech exam unremarkable. Mildly prolonged mastication, but otherwise all other aspects of swallow deemed WFL. Patient demonstrated good oral clearance and no overt s/s of aspiration. Once cleared by MD to advance from Full Liquid Diet, recommend REGULAR texture solids and THIN liquids, pills WHOLE in PUREE. Patient will need 1:1 supervision d/t confusion. Oral Medication Intake: Whole with Liquid Please contact the pharmacy regarding appropriate crushable or liquid drug formulations that are available whenever modified delivery is recommended. Compensatory Strategies and Precautions to be Taken for Safe Swallow: Sitting Upright (90 deg) Small Bites and Sips Alternate Liquids/Solids Rate of Ingestion Change Supervision While Eating and Drinking for Safe Swallow: Total Supervision (1:1) Recommendation for Speech: NA:Typical Evaluation Comment: No difficulties noted with bedside dysphagia exam. Recommend 1:1 supervision at meal time d/t confusion. Please re-refer if needed. Clerical Adviser Clinican/Clinical Fellow: No Supervisory Statement: I have reviewed and agree with the student/clinical fellow's documentation: N/A Speech Language Pathologist: Selina Painting M.A., CCC-LAND MEASURER
--- NOTE | 2024-05-26 14:32 | MHC.CLN ---
F/U DIET ADVANCED TO FULL LIQUIDS 05/25. PATIENT IS MODERATELY MALNOURISHED. ADDING ENSURE TID TO PROVIDE 1050 KCALS, 60 G PROTEIN. SEEN BY DYE RANGE TENDER AND REC FOR DIET=REGULAR CONSISTENCY WITH THIN LIQUIDS ONCE CLEARED FROM FULL LIQUIDS. IF UNABLE TO ADVANCE DIET, RECOMMEND START PPN 05/27. RECOMMEND START PPN AT 30 ML PER HOUR TO PROVIDE 31 G PROTEIN, 72 G DEXTROSE, 367 KCALS. REPLETE LYTES NEEDED. DAY 2, 05/28, RECOMMEND INCREASE PPN TO 50 ML PER HOUR TO PROVIDE 51 G PROTEIN, 120 G DEXTROSE, 612 KCALS. REPLETE LYTES NEEDED CHECK TRIGLYCERIDES. FOLLOW FOR DIET ADVANCEMENT, PO INTAKE AND PPN TOLERANCE IF INITIATED.
[2024-05-26 16:00] VITALS: BP 144/76; PULSE 56; RESP 16; TEMP 36.7; O2SAT 98
[2024-05-26 16:17] LABS: Glucose, Whole Blood 92 mg/dL (60-115)
[2024-05-26 20:43] VITALS: BP 160/90; PULSE 47; RESP 20; TEMP 36.5; O2SAT 99
[2024-05-26 21:26] LABS: Glucose, Whole Blood 73 mg/dL (60-115)
[2024-05-26] MEDS: 0.9 % Sodium Chloride Flush 3 ML SYRINGE IVFLUSH (22:26)
[2024-05-26] MEDS: traZODone HCL 25 MG HALFTAB PO (22:26)
[2024-05-27] VITALS: BP 161/77; PULSE 58; RESP 20; TEMP 36.3; O2SAT 97
[2024-05-27 04:00] VITALS: BP 157/78; PULSE 45; RESP 16; TEMP 36.7; O2SAT 95
[2024-05-27] MEDS: Omeprazole/Na Bicarb Oral Susp 20 MG/10 ML UD Cup 40 MG PO (06:10)
[2024-05-27 07:54] LABS: Glucose, Whole Blood 71 mg/dL (60-115)
[2024-05-27 07:58] VITALS: BP 147/68; PULSE 43; RESP 20; TEMP 36.8; O2SAT 97
[2024-05-27] MEDS: 0.9 % Sodium Chloride Flush 3 ML SYRINGE IVFLUSH (09:19)
[2024-05-27 09:26] LABS: Alanine Aminotransferase 8 U/L (0-40); Albumin Level 2.7 g/dL (3.5-5.0); Alkaline Phosphatase 44 U/L (39-117); Anion Gap 12 (12-20); Aspartate Amino Transferase 26 U/L (5-37); Bilirubin Total 0.4 mg/dL (0.0-1.0); Blood Urea Nitrogen 14 mg/dL (9-16); Calcium 8.3 mg/dL (8.4-10.2); Carbon Dioxide 27 mmol/L (22-29); Chloride 104 mmol/L (96-108); Creatinine Clr Calc Pharmacy 28.3; Estimated Glomerular Filt Rate 45; Glucose Random 70 mg/dL (60-115); Magnesium 1.5 mg/dL (1.6-2.6); Phosphorus 2.5 mg/dL (2.7-4.5); Potassium 3.2 mmol/L (3.3-5.1); Sodium 140 mmol/L (135-145); Total Protein 5.3 g/dL (6.5-8.0)
--- NOTE | 2024-05-27 10:55 | P.DS_ITS ---
DS: Providers Provider Date of admission: 05/20/24 14:34 Primary care physician: Rajesh Son MD Consults: 05/20/24 14:33 Consult to General Surgery Routine Consulting Provider[place] [facility] Reason for consultation: sbo Has provider been notified: No 05/20/24 14:36 Consult to Nephrology Routine Consulting Provider: [facility] Reason for consultation: douglas Has provider been notified: No 05/20/24 14:41 Consult to Gastroenterology Routine Consulting Provider: [facility] Reason for consultation: coffee ground /? Gib Has provider been notified: No 05/26/24 10:17 Consult to Cardiology Routine Consulting Provider: [facility] Reason for consultation: Bradycardia Has provider been notified: Yes DS: Diagnosis Discharge Diagnosis (1) Sinus bradycardia: Status: Acute DS: Summary Hospital Course Hospital Course: admission hpi Chief Complaint: coffee ground emesis 78 y/o M with pmhx of unspecified dementia with mood disorder, BPH with LUTS and chronic Moreau, paroxysmal atrial fibrillation anticoagulated with Eliquis, hypertension, GERD, osteoarthritis, history MRSA UTI/bacteremia, and moderate protein calorie malnutrition, poor historian -information given by Ed physician : sent to ed due to coffee-ground emesis,? Some worsening mentation, has some dried brown material on the teeth. Patient poor historian-does not give much information, but able to say no shortness a breath, does not say if much abdominal discomfort, does not seem to endorse much pain on abdominal palpation. Unable to tell if his passing bowels. Did not cough during my examination. labs , imaging ,ekg reviewed : wbc 11.2 h/h: 10.2/31.3 bun/cr : 82/2.68. cxr:Left basilar airspace disease as above. Trace left-sided pleural effusion. ct abd:There are multiple distended proximal and mid small bowel loops, with relative decompression of the distal small bowel and colon. Findings suggest a distal small bowel obstruction. The urinary bladder is decompressed by Moreau catheter and shows mild wall thickening, possibly infectious or inflammatory in etiology, versus pseudothickening from suboptimal filling. ekg:Sinus rhythm with occasional Premature ventricular complexes. patient received ivf ,antibiotics , ppi and seen by surgery for ?sbo on ct abd :patient abd exam seems benign and ct abd reviewed by surgery -not see any transition point in his CAT scan and he has good amounts of air in the colon-so dobut about clinically obstruction. Hospital course: 78/m with unspecified dementia with mood disorder, BPH with LUTS and chronic suprapubic catheter, paroxysmal atrial fibrillation anticoagulated with Eliquis, HTN, GERD, osteoarthritis, history of MRSA UTI/bacteremia, and moderate protein- calorie malnutrition. Poor historian?information provided by ED physician. Sent to ED due to coffee-ground emesis and possible worsening mentation. Coffee Ground Emesis/GI Bleed and Acute Blood Anemia: Attributed to Eliquis, which was held. H/H dropped but did not require transfusion. Concern for ileus and small bowel obstruction and risk of aspiration delayed EGD. EGD performed 05/25 with the following findings and recommendations * Grade D esophagitis * Esophageal ulcer * Normal stomach * Normal duodenum ?? Recommendations:?? * Follow biopsy results. * Cont PPI bid x 8 weeks and then once daily indefinitely * Start Carafate 10 ml QID x 14 days * Can resume Eliquis tmrw AM * Avoid NSAIDs. * Avoid laying down for 45-60 mins post meals Ileus vs. Bowel Obstruction: CT abdomen: Questionable SBO. Surgery evaluation: No clinical SBO; possible ileus. Managed conservatively; repeat CT showed improvement. Diet advanced. Aspiration Pneumonia: Zosyn started on 05/20, discontinued after 7 days (today). Transition to Augmentin for another 5 days. UTI: Urine culture showed Violette (colonization in chronic catheter) and Enterococcus faecalis. Treated with Augmentin. Bradycardia: Heart rate in 40s with no sinus pause, he likely has sick sinus syndrome but no indication for pace maker at this time per cardiology Hematuria: Self-limited and resolved. Hypoglycemia: Occurred while NPO. Treated with LR + glucose, resolved. Chronic Atrial Fibrillation: Rate-controlled with episodes of bradycardia, no sinus pauses. Not on beta blockers or calcium channel blockers. Seen by cardiology: No intervention recommended at this time. DOUGLAS: Likely prerenal from renal hypoperfusion/hypotension. Creatinine trending down. Outpatient nephrology follow-up if discharged. Metabolic Acidosis: Likely secondary to renal failure; resolved. Moderate Protein-Calorie Malnutrition: Air Cargo Specialist Supervisor evaluation completed. Dispo: Back to SNF Time Attestation Discharge Coordination Time (in mins): 45 Quality: Safe Use of Opioids Does Pt have an Active Cancer Diagnosis on the Problem List?: No Quality: Stroke Does the patient have a stroke diagnosis?: No Physical Exam Vital Signs: Vital Signs: Last Vital Signs Temp 98.3 F 05/27/24 07:58 Pulse 43 L 05/27/24 07:58 Resp 20 05/27/24 07:58 BP 147/68 H 05/27/24 07:58 Pulse Ox 97 05/27/24 07:58 O2 Del Method Room Air 05/27/24 07:58 BMI result Body Mass Index 17.8 DS: Data Data Completed and Pending Completed studies during hospitalization [Text1]: Procedures Insertion of Infusion Device into Superior Vena Cava, Percutaneous Approach (08/03/22) Ultrasonography of Superior Vena Cava, Guidance (08/03/22) Pending studies at discharge: Pending at discharge 05/25/24 13:02 Surgical [PTH] Routine Labs on day of discharge: Laboratory Results - last 24 hr 05/26/24 05/26/24 05/26/24 10:56 15:49 21:21 Hold Purple Top Sodium Potassium Chloride Carbon Dioxide Anion Gap BUN Creatinine Estim Creat Clear Calc Estimated GFR POC Glucose 112 92 73 Random Glucose Calcium Phosphorus Magnesium Total Bilirubin AST ALT Alkaline Phosphatase Total Protein Albumin 05/27/24 05/27/24 07:29 08:06 Hold Purple Top SEE NOTE Sodium 140 Potassium 3.2 L Chloride 104 Carbon Dioxide 27 Anion Gap 12 BUN 14 Creatinine 1.52 H Estim Creat Clear Calc 28.3 Estimated GFR 45 POC Glucose 71 Random Glucose 70 Calcium 8.3 L Phosphorus 2.5 L Magnesium 1.5 L Total Bilirubin 0.4 AST 26 ALT 8 Alkaline Phosphatase 44 Total Protein 5.3 L Albumin 2.7 L Discharge Plan Discharge Anticipated Discharge Date/Time: 05/27/24 11:18 Patient Disposition: Xfer SNF Discharge Diagnosis: gi bleeding, anemia, renal failure, Referrals: Rajesh Son MD [Primary Care Provider] - 1 Week Discharge Medications: New amoxicillin-pot clavulanate 500-125 mg Tablet 1 tab PO BID Qty: 10 0RF sucralfate [Carafate] 100 mg/mL suspension 10 ml PO QID 14 Days Qty: 560 0RF Rx Instructions: swish in mouth and swallow; use after food/drink Prilosec 10 mg susp,delayed release for recon 20 mg PO DAILY 56 Days Qty: 30 0RF Rx Instructions: For 8 weeks then once daily Continued cyanocobalamin (vitamin B-12) 1,000 mcg Tablet 1,000 mcg PO DAILY famotidine 20 mg Tablet 20 mg PO BID finasteride 5 mg Tablet 5 mg PO DAILY Eliquis 2.5 mg Tablet 2.5 mg PO BID acetaminophen [Tylenol] 325 mg Tablet 650 mg PO Q6H PRN (Reason: Fever Or Pain) Rx Instructions: DO NOT EXCEED 3 G IN 24 HRS sennosides-docusate sodium [Senna with Docusate Sodium] 8.6-50 mg Tablet 1 tab-cap PO BID magnesium hydroxide [Milk of Magnesia] 400 mg/5 mL Suspension 30 ml PO DAILY PRN (Reason: Constipation) bisacodyl 10 mg Suppository 10 mg [place] DAILY PRN (Reason: Constipation) Fleet Enema 19-7 gram/118 mL Enema 118 ml [place] DAILY PRN (Reason: Constipation) trazodone 50 mg Tablet 25 mg PO BEDTIME methenamine hippurate 1 gram Tablet 1 g PO BID mirtazapine [Remeron] 15 mg Tablet 15 mg PO BEDTIME mupirocin 2 % Ointment 1 appl TOPICAL BID Acidophilus Capsule 10,000 mmu cells PO DAILY Discontinued naproxen 375 mg Tablet 375 mg PO BID PRN (Reason: Pain (Scale Score 1-3)) Discharge Orders: Discharge Order (Routine); Ordered 05/27/24 Ordered By: Dhiraj Law Diet: Advance to usual diet Activity on Discharge: As tolerated Stand Alone Forms: Patient Portal Discharge page Print Language: Amharic Care Plan Goals: recovery from gib bleeding, anemia, ileus and bradycardia Health Concerns: anemia, renal failure, ileus Plan of Treatment: * Cont PPI (prilosec) bid x 8 weeks and then once daily indefinitely * take Carafate 10 ml QID x 14 days * continue Eliquis * Avoid NSAIDs (including Naproxen) * Avoid laying down for 45-60 mins after mealnes * outpatient nutritional follow up * check bmp and magnesium in 2 days ( mag was 1.5, potassium 3. 2 on 05/27/24) Assessment: see above
[2024-05-27 11:01] LABS: MANUAL DIFF FLAG NO
[2024-05-27] MEDS: Amoxicillin/Potassium Clav 500 MG TABLET PO (11:01)
[2024-05-27] MEDS: Sucralfate Oral Suspension 1 GM/10 ML ORAL.SUSP PO (11:01)
[2024-05-27] MEDS: Apixaban 2.5 MG TABLET PO (11:01)
[2024-05-27] MEDS: Cyanocobalamin (Vitamin B-12) 1,000 MCG TABLET 1000 MCG PO (11:01)
[2024-05-27] MEDS: Finasteride 5 MG TABLET PO (11:01)
[2024-05-27 11:03] LABS: Basophils Absolute Auto 0.1 X10*3/uL (0.0-0.2); Basophils Percent Auto 0.8 % (0-2); Eosinophils Absolute Auto 0.5 X10*3/uL (0.0-0.4); Eosinophils Percent Auto 5.9 % (0-4); Hematocrit 34.3 % (42.0-52.0); Hemoglobin 11.4 g/dl (14.0-18.0); Imm Gran Abs Auto 0.04 X10*3/uL (0.00-0.03); Imm Gran Pct Auto 0.5 % (0.0-0.4); Lymphocytes Absolute Auto 2.8 X10*3/uL (1.2-4.9); Lymphocytes Percent Auto 35.8 % (20-40); Mean Corpuscular HGB Conc 33.2 g/dl (31.0-36.0); Mean Corpuscular Hemoglobin 30.2 pg (27.0-33.0); Mean Corpuscular Volume 90.7 fL (80.0-98.0); Mean Platelet Volume 10.1 fL (9.4-12.4); Monocytes Absolute Auto 0.5 X10*3/uL (0.1-1.2); Neutrophils Absolute Auto 3.8 x10*3/uL (2.0-8.3); Platelet Count 345 X10*3/uL (160-400); Red Blood Count 3.78 X10*6/uL (4.60-5.80); Red Cell Distribution Width 14.8 % (11.0-16.0); White Blood Count 7.7 X10*3/uL (4.8-10.8)
[2024-05-27 11:06] LABS: Glucose, Whole Blood 79 mg/dL (60-115)
[2024-05-27] MEDS: Potassium Chloride Packet 20 MEQ PACKET 40 MEQ PO (11:57)
[2024-05-27] MEDS: Magnesium Sulfate/D5W 1 GM/100 ML PIGGYBACK IV (11:57)
[2024-05-27 15:22] VITALS: BP 139/70; PULSE 59; RESP 17; TEMP 36.6; O2SAT 97
--- NOTE | 2024-05-27 15:47 | MHC.CM.PN ---
Addendum entered by Anahy White 05/27/24 15:51: GuardianAlecia informed of pt.'s transfer back to [facility] via voice mail message. Original Note: Second IMM sent to guardiAlecia argueta, pt has been medically cleared for DC, he returned to [facility], where he resides LTC via S today.
== END 2024-05-27 15:30 | disposition skilled nursing facility (03) | DRG 698 ==
LOC: HO.ED 11:00 → HO.EDOVER 14:48 → HO.S3 05-21 12:53 → HO.IMC 05-26 11:33
PROVIDERS: Internal Medicine; Nurse Practitioner Family; Admitting Provider Internal Medicine; Emergency Provider Emergency Medicine; PCP Family Medicine; Visit Provider Internal Medicine
PROC: 0DJ08ZZ Inspection of Upper Intestinal Tract, Via Natural or Artificial Opening Endoscopic (ICD-10-PCS; CPT 43235; principal; 2024-05-25 13:20)
DX: T83.518A Infection and inflammatory reaction due to other urinary catheter, initial encounter (principal); J69.0 Pneumonitis due to inhalation of food and vomit; K22.11 Ulcer of esophagus with bleeding; D68.32 Hemorrhagic disorder due to extrinsic circulating anticoagulants; N13.8 Other obstructive and reflux uropathy; K56.7 Ileus, unspecified; E87.20 Acidosis, unspecified; F03.93 Unspecified dementia, unspecified severity, with mood disturbance; E44.0 Moderate protein-calorie malnutrition; Z68.1 Body mass index [BMI] 19.9 or less, adult; N39.0 Urinary tract infection, site not specified; I95.9 Hypotension, unspecified; B95.2 Enterococcus as the cause of diseases classified elsewhere; R31.9 Hematuria, unspecified; E16.2 Hypoglycemia, unspecified; T45.515A Adverse effect of anticoagulants, initial encounter; D64.9 Anemia, unspecified; I49.5 Sick sinus syndrome; N40.1 Benign prostatic hyperplasia with lower urinary tract symptoms; I48.0 Paroxysmal atrial fibrillation; Z20.822 Contact with and (suspected) exposure to COVID-19; Z86.14 Personal history of Methicillin resistant Staphylococcus aureus infection; Z79.01 Long term (current) use of anticoagulants; Z79.899 Other long term (current) drug therapy
CPT/HCPCS: 0241U; 36415; 71045; 74018; 74176; 80048; 80053; 80076; 81001; 82272; 82570; 82607; 82728; 82746; 82947; 83540; 83605; 83690; 83735; 84100; 84156; 84484; 85025; 85027; 85610; 86850; 86900; 86901; 86923; 87040; 87086; 87088; 87186; 88305; 88312; 88341; 88342; 92610; 93005; 99285; C1758; J0456; J0696; J1100; J1596; J1650; J2003; J2405; J2470; J2543; J2704; J3475; J7120; P9016; P9047

== ENCOUNTER → 2024-05-20 09:39 | Outpatient (BNV) | payer MEDICARE, MEDICAID, SELFPAY | PROVIDERS: Admitting Provider Internal Medicine; Emergency Provider Emergency Medicine; PCP Family Medicine; Visit Provider Internal Medicine Cardiovascular Disease | DX: I49.3 Ventricular premature depolarization (principal); R94.31 Abnormal electrocardiogram [ECG] [EKG]; R41.82 Altered mental status, unspecified | CPT/HCPCS: 93010 ==

== ENCOUNTER 2024-05-20 14:34 | Outpatient (BNV) | payer MEDICARE, MEDICAID, SELFPAY | END 2024-05-26 10:31 | PROVIDERS: Admitting Provider Internal Medicine; Emergency Provider Emergency Medicine; PCP Family Medicine; Visit Provider Internal Medicine Cardiovascular Disease | DX: R00.1 Bradycardia, unspecified (principal); R94.31 Abnormal electrocardiogram [ECG] [EKG] | CPT/HCPCS: 93010 ==

== ENCOUNTER 2024-05-20 14:34 | Outpatient (BNV) | payer MEDICARE, MEDICAID, SELFPAY | END 2024-05-22 14:24 | PROVIDERS: Admitting Provider Internal Medicine; Emergency Provider Emergency Medicine; PCP Family Medicine; Visit Provider Radiology Diagnostic Radiology | DX: K56.7 Ileus, unspecified (principal) | CPT/HCPCS: 74018 ==

== ENCOUNTER 2024-05-20 14:34 | Outpatient (BNV) | payer MEDICARE, MEDICAID, SELFPAY | END 2024-05-23 19:25 | PROVIDERS: Admitting Provider Internal Medicine; Emergency Provider Emergency Medicine; PCP Family Medicine; Visit Provider Radiology Diagnostic Radiology | DX: K56.7 Ileus, unspecified (principal) | CPT/HCPCS: 74176 ==

== ENCOUNTER → 2024-05-20 14:34 | Outpatient (BNV) | payer MEDICARE, MEDICAID, SELFPAY | PROVIDERS: Admitting Provider Internal Medicine; Emergency Provider Emergency Medicine; PCP Family Medicine; Visit Provider Internal Medicine | DX: K92.0 Hematemesis (principal); K22.10 Ulcer of esophagus without bleeding | CPT/HCPCS: 43239; 99222; 99232 ==

== ENCOUNTER → 2024-05-20 14:34 | Outpatient (BNV) | payer MEDICARE, MEDICAID, SELFPAY | PROVIDERS: Admitting Provider Internal Medicine; Emergency Provider Emergency Medicine; PCP Family Medicine; Visit Provider Surgery | DX: K92.0 Hematemesis (principal) | CPT/HCPCS: 99222; 99232 ==

== ENCOUNTER → 2024-05-20 14:34 | Outpatient (BNV) | payer MEDICARE, MEDICAID, SELFPAY | PROVIDERS: Admitting Provider Internal Medicine; Emergency Provider Emergency Medicine; PCP Family Medicine; Visit Provider Internal Medicine Cardiovascular Disease | DX: R00.1 Bradycardia, unspecified (principal) | CPT/HCPCS: 99222 ==

== ENCOUNTER → 2024-05-20 14:34 | Outpatient (BNV) | payer MEDICARE, MEDICAID, SELFPAY | PROVIDERS: Admitting Provider Internal Medicine; Emergency Provider Emergency Medicine; PCP Family Medicine; Visit Provider Nurse Practitioner Family | DX: N17.9 Acute kidney failure, unspecified (principal) | CPT/HCPCS: 99222; 99231; 99232 ==

== ENCOUNTER → 2024-05-20 14:34 | Outpatient (BNV) | payer MEDICARE, MEDICAID, SELFPAY | PROVIDERS: Admitting Provider Internal Medicine; Emergency Provider Emergency Medicine; PCP Family Medicine; Visit Provider Internal Medicine | DX: K92.0 Hematemesis (principal); K56.609 Unspecified intestinal obstruction, unspecified as to partial versus complete obstruction; N17.9 Acute kidney failure, unspecified; R31.9 Hematuria, unspecified | CPT/HCPCS: 99222; 99232 ==

== ENCOUNTER 2024-05-29 16:11 | Emergency (ER) | payer MEDICARE, MEDICAID, SELFPAY ==
[2024-05-29 16:17] VITALS: BP 146/70; PULSE 42; O2SAT 95
[2024-05-29 16:32] VITALS: BP 138/86; PULSE 54; RESP 16; TEMP 37.1; O2SAT 95; BMI 17.1
[2024-05-29 17:50] LABS: Appearance Urine Turbid; Glucose Urine UA Negative (Negative); Leukocyte Esterase Urine Large (3+) (Negative); Nitrite Urine Negative (Negative); Specific Gravity - Urine 1.025 (1.005-1.025); UMIC TRIGGER UACC YES; Urine Blood Large (3+) (Negative); Urine Ketones Negative (Negative); Urine Protein 300 (3+) mg/dL (Neg-Trace)
[2024-05-29 17:53] LABS: Color Urine RED
[2024-05-29 17:54] LABS: Bacteria Urine None Seen (None Seen); Hyaline Casts Urine 0-2 /LPF (0-2); RBC Urine >20 /HPF (0-2); Squamous Epithelial Cell Urine 0-2 /HPF (0-2); UACC Culture Trigger YES; WBC Urine >50 /HPF (0-5)
--- NOTE | 2024-05-29 19:12 | MHC.EDTECH ---
pt refuses blood work and vitals
[2024-05-29 20:32] VITALS: BP 134/80; PULSE 86; RESP 16; O2SAT 98
--- NOTE | 2024-05-29 21:04 | ED.MALEGU ---
HPI - Male Genitourinary General Chief complaint: Urogenital-Male Stated complaint: UTI Time Seen by Provider: 05/29/24 21:01 Source: patient and EMS Mode of arrival: EMS Limitations: other (dementia) History of Present Illness ED Provider: JASE REID Narrative: 78 yo male with PMH of dementia and mood disorder, BPH with chronic ornelas, PAF on eliquis, HTN, GERD, MRSA UTI/bacteremia recent admission here for anemia due to likely esophagitis, ileus, aspiration pneumonia and enteroccoccus UTI - dc on augmentin. DC on 05/27 when he was here on that day he also had dark urine - has chronic suprapubic cath. He has no complaints - he did not last time either. Sent from [facility] MD Complaint: other (hematuria) Onset (ago): week(s) Duration: intermittent Location: penis Severity: mild Relieving factors: none Exacerbating factors: none Context: other (similar episodes in the past) Associated symptoms: Reports denies other symptoms Related Data Home Medications ?Medication ?Instructions ?Recorded ?Confirmed apixaban 2.5 mg tablet (Eliquis) 2.5 mg PO BID 08/03/22 05/20/24 cyanocobalamin (vitamin B-12) 1,000 mcg PO DAILY 08/03/22 05/20/24 1,000 mcg tablet finasteride 5 mg tablet 5 mg PO DAILY 08/03/22 05/20/24 acetaminophen 325 mg tablet 650 mg PO Q6H PRN Fever Or Pain 02/18/23 05/20/24 (Tylenol) bisacodyl 10 mg rectal suppository 10 mg CO DAILY PRN Constipation 02/18/23 05/20/24 magnesium hydroxide 400 mg/5 mL 30 ml PO DAILY PRN Constipation 02/18/23 05/20/24 oral suspension (Milk of Magnesia) sennosides 8.6 mg-docusate sodium 1 tab-cap PO BID 02/18/23 05/20/24 50 mg tablet (Senna with Docusate Sodium) sodium phosphates 19 gram-7 118 ml CO DAILY PRN Constipation 02/18/23 05/20/24 gram/118 mL enema (Fleet Enema) methenamine hippurate 1 gram tablet 1 g PO BID 03/17/24 05/20/24 mirtazapine 15 mg tablet (Remeron) 15 mg PO BEDTIME 03/17/24 05/20/24 trazodone 50 mg tablet 25 mg PO BEDTIME 03/17/24 05/20/24 Lactobacillus acidophilus 10,000 mmu cells PO DAILY 05/20/24 05/20/24 (Acidophilus capsule) mupirocin 2 % topical ointment 1 appl topical BID 05/20/24 05/20/24 Previous Rx's ?Medication ?Instructions ?Recorded amoxicillin 500 mg-potassium 1 tab PO BID #10 tabs 05/27/24 clavulanate 125 mg tablet omeprazole magnesium 10 mg oral 20 mg PO DAILY 8 weeks #30 ea 05/27/24 suspension,delayed release (Prilosec) sucralfate 100 mg/mL oral 10 ml PO QID 14 days #560 mL 05/27/24 suspension (Carafate) Allergies Allergy/AdvReac Type Severity Reaction Status Date / Time No Known Allergies Allergy Verified 05/29/24 16:35 Review of Systems Review of Systems: ROS unable to be obtained due to dementia [facility] Past Medical History Attestation statement: The following information was validated with the patient. 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 Atrial fibrillation Dementia Social History Social History Household Members: Unknown / Unable to assess Housing: Unknown / Unable to assess Are you a primary primary care sales representative to a significant other at home: No Do you presently have visiting nurse or other home services: No Unable to assess alcohol history related to: Unable to respond Alcohol intake: never Comment: 1:2 sitter in room Patient Tobacco Use Status: Tobacco use Unknown Smoked in Last 30 Days: No Second Hand Smoke Exposure: No Use of substances other than those prescribed or required for medical reasons: No Advance Directives: Yes Advance Directives on File: Yes Advance Directives Date on File: 06/14/23 service: No Current occupational status: disabled Physical Exam Vital Signs: Vital Signs: Last Vital Signs Temp 98.6 F 05/30/24 02:39 Pulse 90 05/30/24 02:39 Resp 16 05/30/24 02:39 BP 142/80 H 05/30/24 02:39 Pulse Ox 98 05/30/24 02:39 O2 Del Method Room Air 05/30/24 02:39 BMI result Body Mass Index 17.1 Appearance: Alert. Oriented to self. No acute distress. Eyes: Pupils equal, round and reactive to light. ENT: Pharynx mildly dry MM Neck: Normal inspection. Neck supple. CVS: Normal heart rate and rhythm. Pulses normal. Respiratory: No respiratory distress. Breath sounds normal. Abdomen: Soft and nontender. suprapubic site is c/d/i - in ornelas bag is dark urine with mild clots Skin: Skin warm and dry. pale skin color. Normal skin turgor. Extremities: No lower extremity edema. No calf ttp Neuro: Oriented X 1. No motor deficit. No sensory deficit. Course Course Course Narrative: WBC count but likely due to hematuria - no nitrates or bacteria Reevaluation(s) Reevaluation #1: did well post irrigation no clots free flowing urine and light pink Medical Decision Making Medical Decision Making [facility] Narrative: 78 yo male with PMH of dementia and mood disorder, BPH with chronic ornelas, PAF on eliquis, HTN, GERD, MRSA UTI/bacteremia here with draining suprapubic catheter but he has hematuria - hx of same on most recent admission at this time basic labs, UA, flush cathter and reassess. He has WBC but not bacteria - suspect related to hematuria and not infection - has neg nitrite with most recent infection that was positive. Differential Diagnosis Differential Diagnoses: The differential diagnosis associated with the presentation includes hematuria, pulled catheter, DOAC use Admission/Observation Consideration of admission/observation: Escalation of care including admission/observation considered H/H stable, urine cleared up with change of bag and hand irrigation, draining he has no complaints can be monitored at facility Lab Data MDM Lab Attestation statement: I reviewed the patient's lab results. 05/29/24 22:19 05/29/24 22:18 Labs: Lab Results 11/25/24 11/25/24 11/25/24 Range/Units 17:29 22:18 22:19 WBC 7.3 (4.8-10.8) X10*3/uL RBC 3.51 L (4.60-5.80) X10*6/uL Hgb 10.9 L (14.0-18.0) g/dl Hct 32.3 L (42.0-52.0) % MCV 92.0 (80.0-98.0) fL MCH 31.1 (27.0-33.0) pg MCHC 33.7 (31.0-36.0) g/dl RDW 14.9 (11.0-16.0) % Plt Count 274 (160-400) X10*3/uL MPV 9.2 L (9.4-12.4) fL Immature Gran % (Auto) 0.3 (0.0-0.4) % Neut % (Auto) 52.8 (45-73) % Lymph % (Auto) 33.7 (20-40) % Bradley % (Auto) 5.9 (2-11) % Eos % (Auto) 6.6 H (0-4) % Baso % (Auto) 0.7 (0-2) % Lymph # (Auto) 2.5 (1.2-4.9) X10*3/uL Bradley # (Auto) 0.4 (0.1-1.2) X10*3/uL Eos # (Auto) 0.5 H (0.0-0.4) X10*3/uL Baso # (Auto) 0.1 (0.0-0.2) X10*3/uL Abs Immat Gran (auto) 0.02 (0.00-0.03) X10*3/uL Absolute Neuts (auto) 3.9 (2.0-8.3) x10*3/uL Absolute Nucleated RBC 0.000 (0.0-0.012) X10*3/uL Nucleated RBC % (auto) 0.0 (0.0-0.2) /100WBC Sodium 140 (135-145) mmol/L Potassium 3.5 (3.3-5.1) mmol/L Chloride 108 (96-108) mmol/L Carbon Dioxide 29 (22-29) mmol/L Anion Gap 7 L (12-20) BUN 14 (9-16) mg/dL Creatinine 1.32 (0.5-1.4) mg/dL Estim Creat Clear Calc 32.2 Estimated GFR 52 Random Glucose 81 (60-115) mg/dL Calcium 8.1 L (8.4-10.2) mg/dL Total Bilirubin 0.2 (0.0-1.0) mg/dL AST 22 (5-37) U/L ALT 10 (0-40) U/L Alkaline Phosphatase 46 (39-117) U/L Total Protein 5.1 L (6.5-8.0) g/dL Albumin 2.7 L (3.5-5.0) g/dL Urine Color RED Urine Appearance Turbid Urine pH 7.0 (5.0-9.0) Ur Specific [place] 1.025 (1.005-1.025) Urine Protein 300 (3+) H (Neg-Trace) mg/dL Urine Glucose (UA) Negative (Negative) mg/dL Urine Ketones Negative (Negative) mg/dL Urine Blood Large (3+) H (Negative) Urine Nitrite Negative (Negative) Ur Leukocyte Esterase Large (3+) H (Negative) Urine RBC >20 H (0-2) /HPF Urine WBC >50 H (0-5) /HPF Ur Squamous Epith Cells 0-2 (0-2) /HPF Urine Bacteria None Seen (None Seen) Hyaline Casts 0-2 (0-2) /LPF Independent Historian Clinical information obtained from an independent historian. History obtained from or confirmed by: EMS External Record Review External record reviewed: Inpatient record and Outpatient record Discharge Plan Discharge Clinical Impression: Hematuria Patient Disposition: Home, Self-Care Instructions: Hematuria (ED) Additional Instructions: hold eliquis for 24 hours return for any worsening symptoms - we flushed and irrigated it his blood counts and kidney function are normal no signs of infection return for any worsening symptoms such as blockage, clots, weakness repeat CBC In 24 hours Prescriptions: No Action cyanocobalamin (vitamin B-12) 1,000 mcg Tablet 1,000 mcg PO DAILY finasteride 5 mg Tablet 5 mg PO DAILY Eliquis 2.5 mg Tablet 2.5 mg PO BID acetaminophen [Tylenol] 325 mg Tablet 650 mg PO Q6H PRN (Reason: Fever Or Pain) Rx Instructions: DO NOT EXCEED 3 G IN 24 HRS sennosides-docusate sodium [Senna with Docusate Sodium] 8.6-50 mg Tablet 1 tab-cap PO BID magnesium hydroxide [Milk of Magnesia] 400 mg/5 mL Suspension 30 ml PO DAILY PRN (Reason: Constipation) bisacodyl 10 mg Suppository 10 mg CO DAILY PRN (Reason: Constipation) Fleet Enema 19-7 gram/118 mL Enema 118 ml CO DAILY PRN (Reason: Constipation) trazodone 50 mg Tablet 25 mg PO BEDTIME methenamine hippurate 1 gram Tablet 1 g PO BID mirtazapine [Remeron] 15 mg Tablet 15 mg PO BEDTIME mupirocin 2 % Ointment 1 appl TOPICAL BID Acidophilus Capsule 10,000 mmu cells PO DAILY Prilosec 10 mg susp,delayed release for recon 20 mg PO DAILY 56 Days Qty: 30 0RF Rx Instructions: For 8 weeks then once daily sucralfate [Carafate] 100 mg/mL suspension 10 ml PO QID 14 Days Qty: 560 0RF Rx Instructions: swish in mouth and swallow; use after food/drink amoxicillin-pot clavulanate 500-125 mg Tablet 1 tab PO BID Qty: 10 0RF Interventions: ED Discharge Assessment Last Done: 05/30/24 02:39 Discharge Date/Time: 05/30/24 02:40 Print Language: Welsh
[2024-05-29 22:23] LABS: Basophils Absolute Auto 0.1 X10*3/uL (0.0-0.2); Basophils Percent Auto 0.7 % (0-2); Eosinophils Absolute Auto 0.5 X10*3/uL (0.0-0.4); Eosinophils Percent Auto 6.6 % (0-4); Hematocrit 32.3 % (42.0-52.0); Hemoglobin 10.9 g/dl (14.0-18.0); Imm Gran Abs Auto 0.02 X10*3/uL (0.00-0.03); Imm Gran Pct Auto 0.3 % (0.0-0.4); Lymphocytes Absolute Auto 2.5 X10*3/uL (1.2-4.9); Lymphocytes Percent Auto 33.7 % (20-40); MANUAL DIFF FLAG NO; Mean Corpuscular HGB Conc 33.7 g/dl (31.0-36.0); Mean Corpuscular Hemoglobin 31.1 pg (27.0-33.0); Mean Platelet Volume 9.2 fL (9.4-12.4); Monocytes Absolute Auto 0.4 X10*3/uL (0.1-1.2); Monocytes Percent Auto 5.9 % (2-11); Neutrophils Absolute Auto 3.9 x10*3/uL (2.0-8.3); Neutrophils Percent Auto 52.8 % (45-73); Platelet Count 274 X10*3/uL (160-400); Red Blood Count 3.51 X10*6/uL (4.60-5.80); Red Cell Distribution Width 14.9 % (11.0-16.0); White Blood Count 7.3 X10*3/uL (4.8-10.8)
[2024-05-29 22:37] LABS: Alanine Aminotransferase 10 U/L (0-40); Albumin Level 2.7 g/dL (3.5-5.0); Alkaline Phosphatase 46 U/L (39-117); Anion Gap 7 (12-20); Aspartate Amino Transferase 22 U/L (5-37); Bilirubin Total 0.2 mg/dL (0.0-1.0); Blood Urea Nitrogen 14 mg/dL (9-16); Calcium 8.1 mg/dL (8.4-10.2); Carbon Dioxide 29 mmol/L (22-29); Chloride 108 mmol/L (96-108); Creatinine Clr Calc Pharmacy 32.2; Estimated Glomerular Filt Rate 52; Glucose Random 81 mg/dL (60-115); Potassium 3.5 mmol/L (3.3-5.1); Sodium 140 mmol/L (135-145); Total Protein 5.1 g/dL (6.5-8.0)
--- NOTE | 2024-05-29 23:09 | PC.NURSE ---
Suprapubic catheter was flushed with sterile water and ornelas bag was replaced.
[2024-05-30 02:39] VITALS: BP 142/80; PULSE 90; RESP 16; TEMP 37; O2SAT 98
== END 2024-05-30 02:40 | disposition home or self-care (01) ==
PROVIDERS: Emergency Provider Emergency Medicine
DX: R31.9 Hematuria, unspecified (principal); R82.90 Unspecified abnormal findings in urine; D64.9 Anemia, unspecified; I48.0 Paroxysmal atrial fibrillation; I10 Essential (primary) hypertension; K21.9 Gastro-esophageal reflux disease without esophagitis; Z79.01 Long term (current) use of anticoagulants; Z79.899 Other long term (current) drug therapy
CPT/HCPCS: 36415; 80053; 81001; 85025; 87086; 87088; 99283; 99284

== ENCOUNTER 2024-07-10 06:19 | Outpatient (REF) | payer MEDICARE, SELFPAY ==
[2024-07-10 06:03] LABS: MANUAL DIFF FLAG NO
[2024-07-10 06:37] LABS: Basophils Absolute Auto 0.1 X10*3/uL (0.0-0.2); Eosinophils Absolute Auto 0.3 X10*3/uL (0.0-0.4); Eosinophils Percent Auto 6.8 % (0-4); Hematocrit 34.9 % (42.0-52.0); Hemoglobin 11.5 g/dl (14.0-18.0); Imm Gran Abs Auto 0.01 X10*3/uL (0.00-0.03); Imm Gran Pct Auto 0.2 % (0.0-0.4); Lymphocytes Absolute Auto 2.1 X10*3/uL (1.2-4.9); Lymphocytes Percent Auto 42.7 % (20-40); Mean Corpuscular Hemoglobin 30.7 pg (27.0-33.0); Mean Corpuscular Volume 93.1 fL (80.0-98.0); Mean Platelet Volume 9.8 fL (9.4-12.4); Monocytes Absolute Auto 0.4 X10*3/uL (0.1-1.2); Monocytes Percent Auto 7.2 % (2-11); Neutrophils Percent Auto 42.1 % (45-73); Platelet Count 220 X10*3/uL (160-400); Red Blood Count 3.75 X10*6/uL (4.60-5.80); Red Cell Distribution Width 13.7 % (11.0-16.0); White Blood Count 4.8 X10*3/uL (4.8-10.8)
[2024-07-10 07:21] LABS: Anion Gap 10 (12-20); Blood Urea Nitrogen 24 mg/dL (9-16); Calcium 8.5 mg/dL (8.4-10.2); Carbon Dioxide 24 mmol/L (22-29); Chloride 111 mmol/L (96-108); Estimated Glomerular Filt Rate > 60; Glucose Random 86 mg/dL (60-115); Potassium 4.3 mmol/L (3.3-5.1); Sodium 141 mmol/L (135-145)
== END 2024-07-10 06:20 | disposition home or self-care (01) ==
LOC: HO.MMNH3L 06:19
PROVIDERS: Visit Provider Family Medicine
DX: G93.41 Metabolic encephalopathy (principal); N39.0 Urinary tract infection, site not specified; F41.8 Other specified anxiety disorders
CPT/HCPCS: 36415; 80048; 85025

== ENCOUNTER 2024-08-07 06:21 | Outpatient (REF) | payer MEDICARE, SELFPAY ==
--- OUTSIDE RECORDS SUMMARY | 2024-08-07 06:31 | XMS_ITS | Data Portability ---
Author Organization [facility], Main Office Address [address] [facility] [address] [place] [address] Care Team Providers Care University Archivist Name Role Phone STANISLAV CHEN 3RD FLOOR OTHER [phone] Assessment Encounter Date Assessment Date Assessment LastModified by Organization Details LastModified Time 06/08/2024 06/08/2024 labs 05/31: Na 145-K 3.5-Bun 13-Cr 1.3-wbc 6.6-hgb 11.0-hct 34-plt 303 Labs 06/05: Na 138-K 3.9-Bun 13-Cr 1.0-wbc 5.4-hgb 10.9- hct 33.4-plt 272 Not available 06/08/2024 15:36:12 06/12/2024 06/12/2024 labs 05/31: Na 145-K 3.5-Bun 13-Cr 1.3-wbc 6.6-hgb 11.0-hct 34-plt 303 Labs 06/05: Na 138-K 3.9-Bun 13-Cr 1.0-wbc 5.4-hgb 10.9- hct 33.4-plt 272 Not available 06/12/2024 11:35:48 06/15/2024 06/15/2024 labs 05/31: Na 145-K 3.5-Bun 13-Cr 1.3-wbc 6.6-hgb 11.0-hct 34-plt 303 Labs 06/05: Na 138-K 3.9-Bun 13-Cr 1.0-wbc 5.4-hgb 10.9- hct 33.4-plt 272 Not available 06/15/2024 09:48:23 06/19/2024 06/19/2024 labs 05/31: Na 145-K 3.5-Bun 13-Cr 1.3-wbc 6.6-hgb 11.0-hct 34-plt 303 Labs 06/05: Na 138-K 3.9-Bun 13-Cr 1.0-wbc 5.4-hgb 10.9- hct 33.4-plt 272 Not available 06/19/2024 14:04:56 06/26/2024 06/26/2024 labs 05/31: Na 145-K 3.5-Bun 13-Cr 1.3-wbc 6.6-hgb 11.0-hct 34-plt 303 Labs 06/05: Na 138-K 3.9-Bun 13-Cr 1.0-wbc 5.4-hgb 10.9- hct 33.4-plt 272 Not available 06/26/2024 13:15:00 Plan of Treatment Reminders Order Date Submit Date Provider Last Modified By Organization Details Last Modified Time Details Appointments None record ed. Lab None record ed. Referral None record ed. Procedures None record ed. Surgeries None record ed. Imaging None record ed. Medication Orders None record ed. Patient TargetsNo targets recorded. Patient InstructionsNo instructions recorded. Reason for Referral None Reported. Problems Name Problem SNOMED Code Status Onset Date Resolution Date Notes Provider Name and Address Organization Details Recorded Time Benign prostatic hyperplasia 575450768 Active 2021 MARK SCHROEDER NP [address], [address], [place], [address], [facility] [employer] [facility] 2 12:42:30 Vascular dementia 527970967 Active 2021 MARK SCHROEDER NP [address], [address], [place], [address], [facility] [employer] [facility] 2 12:42:36 Constipatio n 70087879 Active 2021 MARK SCHROEDER NP [address], [address], [place], [address], [facility] [employer] [facility] 2 12:42:45 Atrial fibrillatio n 30281732 Active 2021 MARK SCHROEDER NP [address], [address], [place], [address], [facility] [employer] [facility] 2 12:42:54 Falls 585782848 Active 2021 MARK SCHROEDER NP [address], [address], [place], [address], [facility] 2 12:44:39 Gastroesoph ageal reflux disease without esophagitis 152699411 Active 2021 MARK SCHROEDER NP [address], [address], [place], [address], [facility] 2 12:57:57 Acute urinary tract infection 445810789 Active 2021 MARK SCHROEDER NP [address], [address], [place], [address], [facility] 2 14:13:29 Asthenia 74034919 Active 2021 Estfeanía Witt MD [address], [address], [place], [address], [facility] 2 16:45:01 Fever 137480411 Active 2021 MARK SCHROEDER NP [address], [address], [place], [address], [facility] 2 10:07:39 COVID-19 825334830 Active 2021 MARK SCHROEDER NP [address], [address], [place], [address], [facility] 2 11:15:20 Bacteremia 1473327 Active 2022 MARK SCHROEDER NP [address], [address], [place], [address], [facility] 3 10:08:56 Pain of right shoulder joint 3096363957953 9100 Active 2022 MARK SCHROEDER NP [address], [address], [place], [address], [facility] 3 12:54:04 Cobalamin deficiency 395605542 Active 2022 Estefanía Witt MD [address], [address], [place], [address], [facility] 3 13:34:49 Sepsis caused by Escherichia coli 233711970 Active 2022 MARK SCHROEDER NP [address], [address], [place], [address], [facility] 3 11:28:51 Dementia 88751265 Active 2022 Estefanía Witt MD [address], [address], [place], [address], [facility] 3 15:58:50 Urinary tract infectious disease 33311962 Active 2023 RASHAWN WAGGONER [address], [address], [place], [address], [facility] 4 20:24:56 Traumatic hematuria 20400013 Active 2023 RASHAWN WAGGONER [address], [address], [place], [address], [facility] 4 20:56:51 Essential hypertensio n 56165392 Active 2023 RASHAWN WAGGONER [address], [address], [place], [address], [facility] 4 21:01:00 Nutritional disorder 8683427 Active 2023 RASHAWN WAGGONER [address], [place], [address], [facility] 4 21:02:35 Adult failure to thrive syndrome 671215651 Active 2023 Estefanía Witt MD [address], [address], [place], [address], [facility] 4 21:38:36 Bradycardia 35203085 Active 2023 RASHAWN WAGGONER [address], [address], [place], [address], [facility] 4 14:06:56 Acute kidney injury 93543089 Active 2023 RASHAWN WAGGONER [address], [address], [place], [address], [place] [facility] 4 14:06:59 Aspiration pneumonia 490953794 Active 2023 RASHAWN WAGGONER [address], [address], [place], [address], [facility] 4 14:07:05 Gastrointes tinal hemorrhage 57786639 Active 2023 JOHN WAGGONERP [address], [address], [place], [address], [facility] 4 14:07:15 Ulcerative esophagitis 727451437 Active 2023 JOHN WAGGONERP [address], [place], [address], [facility] 4 15:56:54 Umair hematuria 403598880 Active 2023 RASHAWN WAGGONER [address], [address], [place], [address], [facility] 4 15:56:56 Problem Notes None recorded. Medical Equipment None Reported. Allergies No known drug allergies Vitals Date Recorded Body height Heart rate Respiratory rate Body temperature Oxygen saturation Oxygen saturation in Arterial blood by Pulse oximetry Systolic blood pressure Diastolic blood pressure Provider Name and Address Organization Details Last Updated DateTime 4 157.48 cm 70 /min 18 /min 97.4 [degF] 94 % 94 % 118 mm[Hg] 74 mm[Hg] RASHAWN WAGGONER [address], [address], [place], [address], [facility] 4 15:18:17 Date Recorded Body height Heart rate Respiratory rate Body temperature Oxygen saturation Oxygen saturation in Arterial blood by Pulse oximetry Systolic blood pressure Diastolic blood pressure Provider Name and Address Organization Details Last Updated DateTime 4 157.48 cm 61 /min 18 /min 97.5 [degF] 95 % 95 % 121 mm[Hg] 75 mm[Hg] RASHAWN WAGGONER [address], [place], [address], [facility] 4 11:34:53 Date Recorded Body height Provider Name an d Address Organization Details Last Updated DateTime 06/15/2024 157.48 cm RASHAWN WAGGONER [address], [address], [place], [address], [facility] 06/15/2024 09:44:54 Date Recorded Body height Provider Name an d Address Organization Details Last Updated DateTime 06/26/2024 157.48 cm RASHAWN WAGGONER [address], [address], [place], [address], [facility] 06/26/2024 13:14:24 Social History Question Answer Notes LastModified by Organizat ion Details LastModified Time Tobacco Smoking Status Never Smoker Estefanía Witt MD [address], [address], [place], [address], [facility] 01/20/2022 16:47:58 Do You Have An Advance Directive? No Assumed Full Code Information not available 01/16/2022 What Is Your Level Of Alcohol Consumption? None Previously Drank About 3 Beers/d Information not available 06/11/2023 How Many Times Per Week Do You Consume Alcohol? 5-7 Times Per Week Information not available 01/20/2022 What Is Your Code Status? Full Code Information not available 01/16/2022 Where Do You Live? [facility] Information not available 06/11/2023 Legal Guardian? Yes Informati on not available 01/20/2022 Do You Have A Medical Power Of Brooch And Bracelet Maker? Yes Guardian, Alecia Isabel Information not available 01/16/2022 What Was The Date Of Your Most Recent Tobacco Screening? 01/20/2022 Information not available 01/20/2022 Do You Have An Out Of Hospital DNR? No Information not available 01/20/2022 Have You Ever Been Counseled For Unhealthy Alcohol Use? No He Denies Information not available 01/20/2022 What Is Your Relationship Status? Single Information not available 01/20/2022 Do You Use Any Illicit Or Recreational Drugs? No Marijuana, He Says None For Many Yrs. Information not available 06/11/2023 Has Tobacco Cessation Counseling Been Provided? No N/a As Pt Is Non-smoker Information not available 01/20/2022 Have You Used IV Drugs? No Information not available 01/20/2022 Do You Or Have You Ever Used Any Other Forms Of Tobacco Or Nicotine? No Information not available 01/20/2022 Sex: Unknown Functional Status None recorded. Mental Status None recorded. Family History Nothing Reported Notes:n/c Medical History No medical history recorded. Immunizations Vaccine Type Date Status Note Provider Nam e and Address Organization Details Recorded Time COVID-19, mRNA, LNP-S, PF, 30 mcg/0.3 mL dose [facility]14[facility] 15:49:57 COVID-19, mRNA, LNP-S, PF, 30 mcg/0.3 mL dose 11/21/2020 completed Soumya yañez [facility] 04/17/2022 15:50:05 COVID-19, mRNA, LNP-S, PF, 30 mcg/0.3 mL dose 11/04/2021 [facility] 15:50:17 COVID-19, mRNA, LNP-S, PF, 30 mcg/0.3 mL dose 04/16/2022 [facility] 15:50:25 Influenza, adjuvanted, quadrivalent, PF 05/18/2022 completed Netta yañez [facility] 07/22/2023 10:59:51 Influenza, adjuvanted, quadrivalent, PF 02/10/2023 [facility] 11:00:07 Past Encounters Encounter ID Performer Location Encounter Start Date Encounter Closed Date Diagnosis/Indication Diagnosis SNOMED-CT Code Diagnosis ICD10 Code Diagnosis Note [id number] AUDI CAPONE [address] [facility] [place] [address] 01/16/2022 09:17:04 01/20/2022 14:19:48 Vascular dementia 983670619 F01.50 remeron 15 mg hspsych prnchart and monitor any changes in mood or behaviors Atrial fibrillation 4943 6004 I48.91 cardizem 120 mg dailyeliqu is 5 mg bidmonitor heart rate Benign pro static hyperplasia 860751374 N40.1 [place]nelas cathflomax 0.8 mg dailyfinas teride 5 mg daily Gastroesop hageal reflux disease without esophagitis 033406639 K21.9 pepcid 20 mg daily Constipation 71987014 K5 9.00 senna plus 2 tabs bid Falls 717142916 R29.6 PT OT eval and treatfall precaution sfrequent safety checks [id number] MARK SCHROEDER NP [address] [address] 01/19/2022 14:12:01 01/23/2022 17:01:11 Acute urinary tract infection 409344245 N39.0 cephalexin 500 mg qid x10 daysmonito r for symptoms Benign pro static hyperplasia 028559173 N40.1 ornelas cathflomax 0.8 mg dailyfinas teride 5 mg daily [id number] Estefanía Witt MD [address] [address] 01/20/2022 11:55:23 01/28/2022 16:12:54 Acute urinary tract infection 366533701 N30.01 U/A reportedly + in ED (report not available. Continue cephalexin 500 mg QID x10 days (pending cx)Will get copies of U/A and cx from [facility].Monito r for sxs. Benign pro static hyperplasia 791174171 N40.1 Continue ornelas cathContin ue tamsulosin 0.8 mg qd and finasterid e 5 mg qd.Getting f/u appt with uro. Vascular dementia 381879 004 F01.50 Suspect some element of EtOHic dementia also although pt says he never drank more than 3 beers/d.Co ntinue remeron 15 mg qhsContinu e supportive care, expect decline.Vega s temporary guardian.M onitor mood and behaviors. Psych consult Atrial fibrillation 4943 6004 I48.0 Rate in good control on diltiazem 120 mg qd.Continu e eliquis 5 mg BID for AC.Monitor HR and bleeding risk. Gastroesop hageal reflux disease without esophagitis 506805963 K21.9 No current sxs.Contin ue famotidine 20 mg qd. Constipation 05478674 K5 9.09 Continue senna plus 2 tabs BID.Monito r bowel function. Falls 799449983 R29.6 As above. Umair hematuria 69303661 5 R31.0 Unclear if from UTI vs. traumatic, vs combinatio n of the 2.Clear now.Monito r Asthenia 93500064 R53.1 Very deconditio jen.Needs PT/OT for strengthen ing, balance, gait training, safety and function.C ontinue fall precaution s.Monitor for safety. [id number] MARK SCHROEDER NP [address] [address] 01/22/2022 12:51:54 01/28/2022 19:53:28 Acute urinary tract infection 365779817 N30.01 recoveredc ephalexin 500 mg qid x10 daysmonito r for symptoms Benign pro static hyperplasia 899396154 N40.1 ornelas cathflomax 0.8 mg dailyfinas teride 5 mg daily Asthenia 77579073 R53.1 PT OT eval and treatfall precaution sfrequent safety checks [id number] MARK SCHROEDER NP [address] [address] 01/26/2022 13:15:39 01/29/2022 09:29:27 Acute urinary tract infection 650873749 N30.01 macobid 100mg bid to 01/29monito r for symptoms Benign pro static hyperplasia 218896296 N40.1 ornelas cathflomax 0.8 mg dailyfinas teride 5 mg dailyurolo gy consult [id number] MARK SCHROEDER NP [address] [address] 01/30/2022 12:08:30 02/13/2022 16:22:20 Acute urinary tract infection 886208579 N30.01 macobid 100mg bid to 01/29monito r for symptoms Benign pro static hyperplasia 572945142 N40.1 ornelas cathflomax 0.8 mg dailyfinas teride 5 mg dailyurolo gy consult Vascular dementia 914365 004 F01.50 remeron 15 mg hspsych prnchart and monitor any changes in mood or behaviors [id number] MARK SCHROEDER NP [address] [address] 02/04/2022 12:45:15 02/16/2022 20:39:21 Benign prostatic hyperplasia 693221182 N40.1 ornelas cathflomax 0.8 mg dailyfinas teride 5 mg dailyurolo gy consult Vascular dementia 769439 004 F01.50 remeron 15 mg hspsych prnchart and monitor any changes in mood or behaviors [id number] MARK SCHROEDER NP [address] [address] 02/11/2022 12:58:05 02/17/2022 16:07:34 Benign prostatic hyperplasia 656185571 N40.1 ornelas cathflomax 0.8 mg dailyfinas teride 5 mg dailyurolo gy consult Vascular dementia 343893 004 F01.50 remeron 15 mg hspsych prnchart and monitor any changes in mood or behaviors Atrial fibrillation 4943 6004 I48.91 cardizem 120 mg dailyeliqu is 5 mg bidmonitor heart rate Gastroesop hageal reflux disease without esophagitis 455866448 K21.9 pepcid 20 mg daily Constipation 27132321 K5 9.00 senna plus 2 tabs bid [place] 272106807 R29.6 PT OT eval and treatfall precaution sfrequent safety checks [id number] MARK SCHROEDER NP [address] [address] 02/18/2022 11:43:57 02/26/2022 11:37:51 Benign prostatic hyperplasia 305637415 N40.1 ornelas cath-will be chronic due to failed voiding trialfloma x 0.8 mg dailyfinas teride 5 mg dailyurolo gy consult Vascular dementia 417438 004 F01.50 remeron 15 mg hspsych prnchart and monitor any changes in mood or behaviors Asthenia 47061433 R53.1 PT OT eval and treatfall precaution sfrequent safety checks [id number] MARK SCHROEDER NP [address] [address] 02/26/2022 12:48:09 03/04/2022 15:36:11 Vascular dementia 164556638 F01.50 remeron 15 mg hspsych prnchart and monitor any changes in mood or behaviors Benign pro static hyperplasia 871287152 N40.1 ornelas cath-will be chronic due to failed voiding trialfloma x 0.8 mg dailyfinas teride 5 mg dailyurolo gy consult [id number] Patsy Waite MD [address] [address] 03/13/2022 08:12:36 03/17/2022 14:45:27 Asthenia 50501722 R53.1 PT/OT/LOGISTICS TECH prnwill monitor and support as needed Vascular dementia 080069 004 F01.50 expect declinewil l monitor and support as needed Gastroesop hageal reflux disease without esophagitis 415175054 K21.9 famotidine 20 mg bidwill monitor Benign pro static hyperplasia 900977975 N40.1 Ornelas catheterfu urologyfin asteride 5 mg dailytamsu losin 0.8 mg dailywill monitor Atrial fibrillation 4943 6004 I48.0 apixaban 5 mg biddiltiaz em ER 120 mg daily for rate controlwil l monitor 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 mirtazapin e 15 mg dailywill monitor Cobalamin deficiency 190 951418 E53.8 B12 1000 mcg dailywill monitor [id number] MARK SCHROEDER NP [address] [address] 04/03/2022 11:19:01 04/07/2022 14:04:53 Asthenia 88226450 R53.1 PT/OT/LOGISTICS TECH prnwill monitor and support as needed Vascular dementia 615288 004 F01.50 expect declinewil l monitor and support as neededguar kev in place Gastroesop hageal reflux disease without esophagitis 979855306 K21.9 famotidine 20 mg bidwill monitor Benign pro static hyperplasia 754887724 N40.1 Ornelas catheterf/ u urologyfin asteride 5 mg dailytamsu losin 0.8 mg dailywill monitor Atrial fibrillation 4943 6004 I48.0 apixaban 5 mg biddiltiaz em ER 120 mg daily for rate controlwil l monitor Mixed anxi ety and depressive disorder 038041351 F41.8 mirtazapin e 15 mg dailywill monitor Cobalamin deficiency 190 174537 E53.8 B12 1000 mcg dailywill monitor [id number] MARK SCHROEDER NP [address] [address] 04/17/2022 10:06:54 04/21/2022 15:17:37 Fever 294706491 R50.9 ua, covid swab negative, cbc, cmp, blood culturemon itor for response to tylenol [id number] Patsy Waite MD [address] [address] 06/12/2022 06:14:20 06/16/2022 15:35:15 Vascular dementia 493701474 F01.50 expect declinewil l monitor and support as needed Benign pro static hyperplasia 989758604 N40.1 Ornelas catheterfu urologyfin asteride 5 mg dailytamsu losin 0.8 mg dailywill monitor Atrial fibrillation 4943 6004 I48.0 apixaban 2.5 mg biddiltiaz em ER 120 mg daily for rate controlwil l monitor Cobalamin deficiency 190 290762 E53.8 B12 1000 mcg dailywill monitor Mixed anxi ety and depressive disorder 859040737 F41.8 mirtazapin e 15 mg dailywill monitor [id number] MARK SCHROEDER NP [address] [address] 06/29/2022 10:38:59 07/10/2022 13:14:29 COVID-19 561696899 U07.1 06/26 covid positiveen courage po intakecons ider ivf for anorexiaco nsider paxlovid or decadron for symptomsse nd to ED for decompensa tion [id number] MARK SCHROEDER NP [address] [address] 07/01/2022 11:29:19 07/10/2022 13:46:41 COVID-19 030544139 U07.1 06/26 covid positiveen courage po intakecons ider ivf for anorexiaco nsider paxlovid or decadron for symptomsse nd to ED for decompensa tion [id number] MARK SCHROEDER NP [facility] [address] [place] [address] 07/02/2022 12:52:16 07/10/2022 14:18:58 COVID-19 564620263 U07.1 06/26 covid positiveen courage po intakecons ider ivf for anorexiaco nsider paxlovid or decadron for symptomsse nd to ED for decompensa tion [id number] MARK SCHROEDER NP [facility] [address] [place] [address] 07/03/2022 11:19:45 07/10/2022 14:49:59 COVID-19 341086581 U07.1 06/26 covid positiveen courage po intakecons ider ivf for anorexiaco nsider paxlovid or decadron for symptomsse nd to ED for decompensa tion [id number] MARK SCHROEDER NP [address] [address] 07/06/2022 13:44:51 07/10/2022 15:22:57 COVID-19 871143132 U07.1 06/26 covid positive-a symptomati c, recovered by dateencour age po intakecons ider ivf for anorexiaco nsider paxlovid or decadron for symptomsse nd to ED for decompensa tion [facility] [address] [place] [address] 08/03/2022 12:47:40 08/05/2022 13:54:59 Acute urinary tract infection 684129410 N30.01 cefuroxime 250 mg bid x7 days 2/8monitor for symptoms MARK SCHROEDER NP [address] [address] 08/13/2022 08:31:00 08/17/2022 14:54:18 Bacteremia 3554273 R78.81 vanco 1250 mg iv daily to 3/1monitor for symptoms Vascular dementia 713522 004 F01.50 expect declinewil l monitor and support as needed Benign pro static hyperplasia 793641616 N40.1 Ornelas catheterf/ u urologyfin asteride 5 mg dailytamsu losin 0.8 mg dailywill monitor Atrial fibrillation 4943 6004 I48.0 apixaban 2.5 mg biddiltiaz em ER 120 mg daily for rate controlwil l monitor Cobalamin deficiency 190 424629 E53.8 B12 1000 mcg dailywill monitor Mixed anxi ety and depressive disorder 288513579 F41.8 mirtazapin e 15 mg dailywill monitor Gastroesop hageal reflux disease without esophagitis 092748242 K21.9 famotidine 20 mg bidwill monitor [place] 677439410 R29.6 PT OT eval and treatfall precaution sfrequent safety checks [id number] MARK SCHROEDER NP [address] [address] 08/17/2022 15:26:00 08/19/2022 10:15:46 Bacteremia 1392162 R78.81 vanco 1250 mg iv daily to 3/1monitor for symptoms Acute urin maciej tract infection 309603814 N30.01 [facility] [id number] MARK SCHROEDER NP [address] [address] 08/19/2022 10:54:09 08/25/2022 10:12:15 Bacteremia 1604139 R78.81 vanco 1250 mg iv daily to 3/1monitor for symptoms Vascular dementia 921212 004 F01.50 expect declinewil l monitor and support as needed Benign pro static hyperplasia 646297340 N40.1 Ornelas catheterf/ u urologyfin asteride 5 mg dailytamsu losin 0.8 mg dailywill monitor Atrial fibrillation 4943 6004 I48.0 apixaban 2.5 mg biddiltiaz em ER 120 mg daily for rate controlwil l monitor Cobalamin deficiency 190 786579 E53.8 B12 1000 mcg dailywill monitor Mixed anxi ety and depressive disorder 134645459 F41.8 mirtazapin e 15 mg dailywill monitor Gastroesop hageal reflux disease without esophagitis 372936089 K21.9 famotidine 20 mg bidwill monitor Falls 197309155 R29.6 PT OT eval and treatfall precaution sfrequent safety checks [id number] MARK AUDI SCHROEDER [facility] [address] [place] [address] 08/27/2022 11:24:35 09/01/2022 07:22:03 Bacteremia 1514203 R78.81 vanco 1250 mg iv daily to 3/1monitor for symptoms Benign pro static hyperplasia 903835381 N40.1 Ornelas catheterf/ u urologyfin asteride 5 mg dailytamsu losin 0.8 mg dailywill monitor [id number] MARKMauricio SCHROEDER NP [address] [address] 09/01/2022 12:54:58 09/03/2022 12:37:02 Bacteremia 9733648 R78.81 vanco 1250 mg iv daily to 3/1monitor for symptoms Benign pro static hyperplasia 270347346 N40.1 Ornelas catheterf/ u urologyfin asteride 5 mg dailytamsu losin 0.8 mg dailywill monitor [id number] MARK SCHROEDER NP [address] [address] 09/10/2022 12:26:40 09/16/2022 14:16:46 Pain of right shoulder joint 7793466462 7512443 M25.511 xrays showed rotator cuff injury/tea rortho consult [id number] Patsy Waite MD [address] [address] 10/14/2022 06:36:11 10/20/2022 11:20:30 Vascular dementia 055991645 F01.50 expect declinewil l monitor and support as needed Atrial fibrillation 4943 6004 I48.0 apixaban 2.5 mg biddiltiaz em ER 120 mg daily for rate controlwil l monitor Pain of ri ght shoulder joint 1173995551 7980557 M25.511 diclofenac gel bidAPAP 650 mg q6h prnPT/OT prnawait ortho consultati onwill monitor Benign pro static hyperplasia 717680914 N40.1 Ornelas catheterfu urologyfin asteride 5 mg dailytamsu losin 0.8 mg dailywill monitor Gastroesop hageal reflux disease without esophagitis 593492305 K21.9 famotidine 20 mg bidwill monitor Cobalamin deficiency 190 052008 E53.8 B12 1000 mcg dailywill monitor Mixed anxi ety and depressive disorder 580823822 F41.8 mirtazapin e 15 mg dailywill monitor [id number] MARK SCHROEDER NP [address] [address] 12/04/2022 11:16:37 12/10/2022 12:55:03 Vascular dementia 637873936 F01.50 expect declinewil l monitor and support as needed Atrial fibrillation 4943 6004 I48.0 apixaban 2.5 mg biddiltiaz em ER 120 mg daily for rate controlwil l monitor Pain of ri ght shoulder joint 6151548220 7326280 M25.511 diclofenac gel bidAPAP 650 mg q6h prnPT/OT prnawait ortho consultati onwill monitor Benign pro static hyperplasia 224735462 N40.1 Ornelas catheterf/ u urologyfin asteride 5 mg dailytamsu losin 0.8 mg dailywill monitor Gastroesop hageal reflux disease without esophagitis 581439021 K21.9 famotidine 20 mg bidwill monitor Cobalamin deficiency 190 402858 E53.8 B12 1000 mcg dailywill monitor Mixed anxi ety and depressive disorder 373711807 F41.8 mirtazapin e 15 mg dailywill monitor [id number] MARK SCHROEDER AUDI [address] [address] 01/27/2023 14:41:48 01/29/2023 16:16:55 Vascular dementia 979369762 F01.50 expect declinewil l monitor and support as needed Atrial fibrillation 4943 6004 I48.0 apixaban 2.5 mg biddiltiaz em ER 120 mg daily for rate controlwil l monitor Pain of ri ght shoulder joint [id number] 3615953 M25.511 diclofenac gel bidAPAP 650 mg q6h prnPT/OT prnawait ortho consultati onwill monitor Benign pro static hyperplasia 456701392 N40.1 Ornelas catheterf/ u urologyfin asteride 5 mg dailytamsu losin 0.8 mg dailywill monitor Gastroesop hageal reflux disease without esophagitis 741424642 K21.9 famotidine 20 mg bidwill monitor Cobalamin deficiency 190 467035 E53.8 B12 1000 mcg dailywill monitor Mixed anxi ety and depressive disorder 751279658 F41.8 mirtazapin e 15 mg dailywill monitor Asthenia 31538946 R53.1 PT/OT/LOGISTICS TECH prnwill monitor and support as needed Falls 311054180 R29.6 PT OT eval and treatfall precaution sfrequent safety checks [id number] MD STANISLAV Munoz APRIL [address] [place] [address] rd JUAN, KIRSTEN [address] 02/22/2023 12:39:11 02/24/2023 13:44:41 Sepsis caused by Escherichia coli 845808085 A41.51 To complete course of abx with cefuroxime 500 mg BID until 03/05 (14 day course).Wi ll add probiotic BID for 14 more days.Monit or sxs. Acute urin maciej tract infection 651842036 N30.01 As above. Chronic re tention of urine 777075581 R33.8 Continue chronic ornelas, change every 30 days.F/U with uro prn. Benign pro static hyperplasia with outflow obstruction 724143771 N40.1 As above.Cont inue tamsulosin 0.8 mg qd and finasterid e 5 mg qd.F/U with uro Atrial fibrillation 4943 6004 I48.0 Rate in good control on diltiazem ER 120 mg qdContinue eliquis 2.5 mg BID for AC.Monitor HR and bleeding risk. 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 Asthenia 61153622 R53.1 Is deconditio jen from recent illness.Ne eds PT/OT for strengthen ing, balance, gait training, safety and function.C ontinue fall precaution s.Monitor for safety. Dementia 85466004 F02.B3 Likely multifacto rial with vascular and EtOH components .Continues at baselineCo ntinue mirtazapin e 15 mg qdContinue supportive care, expect decline.Vega s guardianMo nitor mood and behaviors. Psych follows. [id number] MARK SCHROEDER NP [address] [address] 03/03/2023 11:23:38 03/05/2023 15:37:10 Sepsis caused by Escherichia coli 490310049 A41.51 To complete course of abx with cefuroxime 500 mg BID until 03/05 (14 day course). Will add probiotic BID for 14 more days. Monitor sxs. Acute urin maciej tract infection 922322387 N30.01 cefuroxime 500 mg bid to ood amboy caremonito r for symptoms [id number] MARK SCHROEDER NP [address] [address] 04/14/2023 11:08:09 04/16/2023 08:47:29 Vascular dementia 927843469 F01.50 expect declinewil l monitor and support as needed Atrial fibrillation 4943 6004 I48.0 apixaban 2.5 mg biddiltiaz em ER 120 mg daily for rate controlwil l monitor Pain of ri ght shoulder joint [id number] 5864777 M25.511 diclofenac gel bidAPAP 650 mg q6h prnPT/OT prnawait ortho consultati onwill monitor Benign pro static hyperplasia 122389359 N40.1 Ornelas catheterf/ u urologyfin asteride 5 mg dailytamsu losin 0.8 mg dailywill monitor Gastroesop hageal reflux disease without esophagitis 046929639 K21.9 famotidine 20 mg bidwill monitor Cobalamin deficiency 190 979928 E53.8 B12 1000 mcg dailywill monitor Mixed anxi ety and depressive disorder 777618927 F41.8 mirtazapin e 15 mg dailywill monitor Asthenia 55768529 R53.1 PT/OT/LOGISTICS TECH prnwill monitor and support as needed [place] 146702337 R29.6 PT OT eval and treatfall precaution sfrequent safety checks [id number] Estefanía Witt MD [address] [place] [address] 06/11/2023 15:07:43 06/15/2023 19:26:06 Chronic retention of urine 100758009 R33.8 No recent issuesCont inue chronic ornelas, change every 30 days.F/U with uro prn. Benign pro static hyperplasia with outflow obstruction 442862009 N40.1 As above.Cont inue tamsulosin 0.8 mg qd and finasterid e 5 mg qd.F/U with uro Dementia 49955597 F02.B3 Continues at baselineCo ntinue mirtazapin e 15 mg qdContinue supportive care, expect decline.Vega s guardian, needs updated guardiansh ip papers scanned into [facility].Monito r mood and behaviors. Psych follows. Mixed anxi ety and depressive disorder 993216077 F41.8 As above. Atrial fibrillation 4943 6004 I48.0 Rate remains in good control on diltiazem ER 120 mg qdContinue eliquis 2.5 mg BID for AC.Monitor HR and bleeding risk. Gastroesop hageal reflux disease without esophagitis 032000896 K21.9 No current sxs.Contin ue famotidine 20 mg BIDMonitor sxs [id number] MARK SCHROEDER NP [address] [place] [address] 06/16/2023 14:19:39 06/23/2023 18:09:18 Acute urinary tract infection 305331355 N30.01 levofloxin 750 mg qod x6 dosesgood ornelas caremonito r for symptoms Vascular dementia 017096 004 F01.50 expect declinewil l monitor and support as needed Atrial fibrillation 4943 6004 I48.0 apixaban 2.5 mg biddiltiaz em ER 120 mg daily for rate controlwil l monitor Pain of ri ght shoulder joint [id number] 7191871 M25.511 diclofenac gel bidAPAP 650 mg q6h prnPT/OT prnawait ortho consultati onwill monitor Benign pro static hyperplasia 883486578 N40.1 Ornelas catheterf/ u urologyfin asteride 5 mg dailytamsu losin 0.8 mg dailywill monitor Gastroesop hageal reflux disease without esophagitis 597273394 K21.9 famotidine 20 mg bidwill monitor Cobalamin deficiency 190 276209 E53.8 B12 1000 mcg dailywill monitor Mixed anxi ety and depressive disorder 833038539 F41.8 mirtazapin e 15 mg dailywill monitor Asthenia 01507438 R53.1 PT/OT/LOGISTICS TECH prnwill monitor and support as needed [place] 785328517 R29.6 PT OT eval and treatfall precaution sfrequent safety checks [id number] MARK SCHROEDER NP [address] [address] 06/21/2023 13:07:48 06/23/2023 18:53:43 Acute urinary tract infection 626797245 N30.01 levofloxin 750 mg qod x6 dosesgood ornelas caremonito r for symptoms Vascular dementia 665728 004 F01.50 expect declinewil l monitor and support as needed [place] 263527906 R29.6 PT OT eval and treatfall precaution sfrequent safety checks [id number] MARK SCHROEDER NP [address] [address] 06/30/2023 10:16:19 07/13/2023 09:45:01 Acute urinary tract infection 476968897 N30.01 levofloxin 750 mg qod x6 doses-comp letedgood ornelas caremonito r for symptoms Benign pro static hyperplasia 908969144 N40.1 Ornelas catheterf/ u urologyfin asteride 5 mg dailytamsu losin 0.8 mg dailywill monitor [id number] Gail Jose Ramon Pennington [address] [address] 08/20/2023 10:35:03 08/31/2023 10:01:42 Benign prostatic hyperplasia 742633817 N40.1 continue with chronic ornelas, change monthly and prncontinu e finasterid e 5mg dailyfollo wed by urology Acute urin maciej tract infection 126863631 N30.01 last UTI in hospital 06/13/23 tx with levo[place] ntinue vit c 500mg BID UTI procontinu e D-mannose 1g BID UTI promonitor , change ornelas monthly Atrial fibrillation 4943 6004 I48.0 chronic, stable. RCcontinue diltiazem 120mg dailyeliqu is 2.5mg BID Cobalamin deficiency 190 717436 E53.8 chronic stablecont inue supplement [id number] RASHAWN WAGGONER [address] [address] 09/13/2023 11:11:07 09/15/2023 09:51:03 Herpes zoster 5776344 B02.9 valacyclov ir 1000 mg q12 for 5 daysgabape ntin 300 mg q 6 prn for 5 daysbenadr yl 25 mg q6 hours for pruritis prntylenol 650 mg prn for discomfort .monitor for worsening sx , nursing to update provider with changesmon itor VS qshiftplac e on precaution s per facility protocol.p t to wear loose clothing [id number] RASHAWN WAGGONER [address] [address] 09/27/2023 12:16:45 09/30/2023 12:31:03 Acute urinary tract infection 952364199 N30.01 with acute encephalop athytx with IV linezolid d/t renal function and ceftriaxon edischarge d to facility on Cefuroxime 500 MG BID until 4/1Linezol id 600 MG BID until 10/03 Traumatic hematuria 9556 7008 R31.9 tx with [facility]; now resolved Herpes zoster 2478166 B0 2.9 dx with shinglesva lacyclovir 1000 mg q12 for 5 daysgabape ntin 300 mg q 6 prn for 5 daysbenadr yl 25 mg q6 hours for pruritis prntylenol 650 mg prn for discomfort .monitor for worsening sx , nursing to update provider with changesmon itor VS qshiftplac e on precaution s per facility protocol. Essential hypertension 43073871 I10 diltiazem 120 mg dailymonit or BP Benign pro static hyperplasia 421666661 N40.1 chronic ornelas catheterco ntinue finasterid e and flomax Atrial fibrillation 4943 6004 I48.0 continue eliquiscon tinue cardizemmo nitor HR Nutritional disorder 249 2008 E44.0 underweigh t 15.7nutrit ional supplement s TID with mealsmonit or monthly weights Acute kidney injury 1466 9001 N17.9 resolved [id number] NADIRA BROOKS [employer] [address] [address] 09/30/2023 09:22:37 10/05/2023 11:35:15 Acute urinary tract infection 126098121 N30.01 with acute encephalop athytx with IV linezolid d/t renal function and ceftriaxon edischarge d to facility on Cefuroxime 500 MG BID until inezol id 600 MG BID until 10/03 Herpes zoster 6809333 B0 2.9 dx with shinglesva lacyclovir 1000 mg q12 for 5 days-compl etedgabape ntin 300 mg q 6 prn for 5 days -completed benadryl 25 mg q6 hours for pruritis prntylenol 650 mg prn for discomfort .monitor for worsening sx , nursing to update provider with changesmon itor VS qshiftplac e on precaution s per facility protocol. Essential hypertension 14377668 I10 diltiazem 120 mg dailymonit or BP Benign pro static hyperplasia 317081890 N40.1 chronic ornelas catheterco ntinue finasterid e and flomax Atrial fibrillation 4943 6004 I48.0 continue eliquiscon tinue cardizemmo nitor HR Nutritional disorder 249 2008 E44.0 underweigh t 15.7nutrit ional supplement s TID with mealsmonit or monthly weights [id number] RASHAWN WAGGONER [facility] [address] [place] [address] 10/07/2023 10:51:23 10/11/2023 14:34:12 Acute urinary tract infection 835999264 N30.01 abx completed 10/04/23 Herpes zoster 0837655 B0 2.9 dx with shinglesan tiviral completed. Essential hypertension 98504349 I10 diltiazem 120 mg dailymonit or BP Benign pro static hyperplasia 732955971 N40.1 chronic ornelas catheterco ntinue finasterid e and flomax Atrial fibrillation 4943 6004 I48.0 continue eliquiscon tinue cardizemmo nitor HR Nutritional disorder 249 2009 E44.0 will order weight time 3 days at 6am for accuracy.u nderweight 15.7nutrit ional supplement s TID with mealsmonit or monthly weights [id number] RASHAWN WAGGONER [address] [address] 10/12/2023 08:24:59 10/25/2023 13:43:58 Acute urinary tract infection 761966206 N30.01 abx completed 10/04/23 Herpes zoster 4607340 B0 2.9 rash resolving, no open areasblist er healed, skin redness continues. antiviral completed. Essential hypertension 68942413 I10 diltiazem 120 mg dailymonit or BP Benign pro static hyperplasia 951917782 N40.1 chronic ornelas catheterco ntinue finasterid e and flomax Nutritional disorder 249 2009 E44.0 appetite wax and wanesnoted with> than 10 lbs weight lossnursin g to encourage supplement al shakes .underweig ht 15.7nutrit ional supplement s TID with mealsmonit or monthly weights [id number] RASHAWN WAGGONER [address] [address] 10/19/2023 10:54:51 10/26/2023 11:03:11 Acute urinary tract infection 784135617 N30.01 resolved Herpes zoster 9023220 B0 2.9 resolved Essential hypertension 15747849 I10 diltiazem 120 mg dailymonit or BP Benign pro static hyperplasia 218818521 N40.1 chronic ornelas catheterco ntinue finasterid e and flomax Nutritional disorder 249 2009 E44.0 appetite wax and wanesbette r today, noted eating breakfast. noted with> than 10 lbs weight lossnursin g to encourage supplement al shakes .underweig ht 15.7nutrit ional supplement s TID with mealsmonit or monthly weights [id number] Estefanía Witt MD [address] [address] 10/22/2023 18:41:41 12/13/2023 13:58:00 Adult failure to thrive syndrome 097661261 R62.7 With marked wt. loss.Will add ensure/reyna st 8 oz BID and get game attendant consult.Al ready on mirtazapin e 15 mg qd.Monitor wts Dementia 06523948 F02.B3 Continues at baselineCo ntinue mirtazapin e 15 mg qdContinue supportive care, expect decline.Vega charisse guardian.M onitor mood and behaviors. Psych follows. Chronic re tention of urine 106016190 R33.8 No recent issuesCont inue chronic ornelas, change every 30 days.F/U with uro prn. Benign pro static hyperplasia with outflow obstruction 928052289 N40.1 As above.Cont inue tamsulosin 0.8 mg qd and finasterid e 5 mg qd.F/U with uro Mixed anxi ety and depressive disorder 425083418 F41.8 As above. Atrial fibrillation 4943 6004 I48.0 Rate remains in good control on diltiazem ER 120 mg qdContinue eliquis 2.5 mg BID for AC.Monitor HR and bleeding risk. Gastroesop hageal reflux disease without esophagitis 049929225 K21.9 No current sxs.Contin ue famotidine 20 mg BIDMonitor sxs [id number] RAS[facility]WN WAGGONER [facility] [address] [place] [address] 10/27/2023 09:18:00 11/02/2023 14:04:27 Essential hypertension 47249798 I10 diltiazem 120 mg dailymonit or BP Benign pro static hyperplasia 415655384 N40.1 chronic ornelas catheterco ntinue finasterid e and flomax Nutritional disorder 249 2008 E44.0 appetite wax and wanesnoted with> than 10 lbs weight lossnursin g to encourage supplement al shakes .underweig ht 15.7nutrit ional supplement s TID with mealsmonit or monthly weights Urinary tr act infectious disease 44349643 N39.0 Started on Methenamin e Hippurate 1 GM for preventati ve measures. [id number] RASHAWN WAGGONER [facility] [address] [place] [address] 11/04/2023 09:11:34 11/09/2023 10:00:16 Essential hypertension 07520209 I10 diltiazem 120 mg dailymonit or BP Benign pro static hyperplasia 175288078 N40.1 chronic ornelas catheterco ntinue finasterid e and flomax Nutritional disorder 249 2008 E44.0 appetite wax and wanesnoted with> than 10 lbs weight lossnursin g to encourage supplement al shakes .underweig ht 15.7nutrit ional supplement s TID with mealsmonit or monthly weights Urinary tr act infectious disease 83969314 N39.0 Started on Methenamin e Hippurate 1 GM for preventati ve measures. [id number] RASHAWN WAGGONER [facility] [address] [place] [address] 11/16/2023 08:30:13 11/22/2023 12:12:26 Urinary tract infectious disease 06956187 N39.0 Sepsis secondary to UTI due to chronic indwelling FoleyConti nue oral amoxicilli n and oral fluconazol e (end date both 11/21) for total of 14 day courseChan ge foleys every 3-4 weeks and use catheter secure Acute kidney injury 1466 9001 N17.9 DOUGLAS secondary to ATNresolve d. Blood in urine 92650517 R31.9 baseline he will present with hematuria in ornelas catheter.C hronic Ornelas in place.abril tor Atrial fibrillation 4943 6004 I48.0 continue eliquis 2.5 mg dailyconti nue cardizem- d/c in acute care due to bradycardi a, monitor need to restart.mo nitor HR Dementia 69209596 F02.B3 Continue mirtazapin e 15 mg qd Gastroesop hageal reflux disease without esophagitis 257191662 K21.9 Continue famotidine 20 mg BIDMonitor sxs Cobalamin deficiency 190 468128 E53.8 Ascorbic Acid 500 MG dailyCyano cobalamin 1000 mcg daily Benign pro static hyperplasia 543991846 N40.1 chronic ornelas catheterco ntinue finasterid e 5 mg daily [id number] RASHAWN WAGGONER [facility] [address] [place] [address] 2023 11:24:22 11/26/2023 08:45:18 Urinary tract infectious disease 69336743 N39.0 antibiotic s completed. Sepsis secondary to UTI due to chronic indwelling FoleyConti nue oral amoxicilli n and oral fluconazol e (end date both 11/21) for total of 14 day courseChan ge foleys every 3-4 weeks and use catheter secure Atrial fibrillation 4943 6004 I48.0 continue eliquis 2.5 mg dailyconti nue cardizem- d/c in acute care due to bradycardi a, monitor need to restart.mo nitor HR Dementia 06063703 F02.B3 Continue mirtazapin e 15 mg qd Gastroesop hageal reflux disease without esophagitis 791433570 K21.9 Continue famotidine 20 mg BIDMonitor sxs [id number] RASHAWN WAGGONER [address] [address] 12/02/2023 09:46:58 12/07/2023 11:56:04 Urinary tract infectious disease 65404129 N39.0 antibiotic s completed. Change ornelas every 3-4 weeks and use catheter secure Atrial fibrillation 4943 6004 I48.0 continue eliquis 2.5 mg dailyconti nue cardizem- d/c in acute care due to bradycardi a, monitor need to restart.mo nitor HR 74 0n 12/01- has been stable 70-80s. Dementia 72273620 F02.B3 Continue mirtazapin e 15 mg qd Gastroesop hageal reflux disease without esophagitis 211902711 K21.9 Continue famotidine 20 mg BIDMonitor sxs [id number] NADIRA BROOKS [employer] [address] [address] 12/06/2023 12:48:19 12/07/2023 12:34:24 Atrial fibrillation 46416504 I48.0 continue eliquis 2.5 mg dailyconti nue cardizem- d/c in acute care due to bradycardi a, monitor need to restart.HR stable. denies any chest pain, SOB or palpitatio ns. 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 [id number] RASHAWN WAGGONER [address] [address] 12/14/2023 10:28:27 12/17/2023 08:36:28 Urinary tract infectious disease 77787673 N39.0 resolved Acute kidney injury 1466 9001 N17.9 DOUGLAS secondary to ATNresolve d. Blood in urine 86749561 R31.9 baseline he will present with hematuria in ornelas catheter.C hronic Ornelas in place.abril tor Atrial fibrillation 4943 6004 I48.0 continue eliquis 2.5 mg daily Dementia 12375966 F02.B3 Continue mirtazapin e 15 mg qd Gastroesop hageal reflux disease without esophagitis 188298905 K21.9 Continue famotidine 20 mg BID Cobalamin deficiency 190 342820 E53.8 Ascorbic Acid 500 MG dailyCyano cobalamin 1000 mcg daily Benign pro static hyperplasia 139239355 N40.1 chronic ornelas catheterco ntinue finasterid e 5 mg daily [id number] RASHAWN WAGGONER [address] [address] 12/28/2023 10:37:21 12/31/2023 14:58:13 Urinary tract infectious disease 21430811 N39.0 Cefuroxime 250 mg BID for 7 dayscontin ue Acidophilu s Oral Capsule daily. Benign pro static hyperplasia 013675150 N40.1 chronic ornelas catheter -patent and draining to gravity today.cont inue finasterid e 5 mg dailynursi ng to provide ornelas care per facility protocol qshift. [id number] RASHAWN WAGGONER [address] [address] 02/08/2024 12:48:44 02/09/2024 14:43:43 Dementia 67588880 F02.B3 noted with an agitation, hitting himself in the head, there is no injury.duncan sing able to redirect patient behavior, although he is redirectab le from self harm he continues to be noted with agitation. nursing reports that patient gets easily agitated with too environmen tabby stimuli.wi ll add trazodone 25 mg q 8 prn for anxiety for 14 days. [id number] RASHAWN WAGGONER [address] [address] 03/07/2024 11:27:24 03/09/2024 14:27:31 Dementia 12117757 F02.B3 with agitation and anxietyrec ently trial on 14 days trazadone with improvemen t with behaviors per nursing.re cently seen by psych with recommenda tions to schedule daily at hswill add trazadone 25 mg at hs and monitor effectiven ess. [id number] RASHAWN WAGGONER [address] [address] 03/13/2024 10:00:17 03/15/2024 10:09:29 Atrial fibrillation 02474019 I48.0 continue eliquis 2.5 mg daily Dementia 71456254 F02.B3 Continue mirtazapin e 15 mg qdrecently trial on 14 days trazadone with improvemen t with behaviors per nursing.no w on trazadone 25 mg at hs for anxiety with agitation Gastroesop hageal reflux disease without esophagitis 187222696 K21.9 Continue famotidine 20 mg BID Cobalamin deficiency 190 754916 E53.8 Ascorbic Acid 500 MG dailyCyano cobalamin 1000 mcg daily Benign pro static hyperplasia 764403404 N40.1 chronic ornelas catheterco ntinue finasterid e 5 mg daily [id number] RASHAWN WAGGONER [address] [address] 03/27/2024 10:56:25 03/28/2024 13:30:57 Atrial fibrillation 46363318 I48.0 continue eliquis 2.5 mg dailyno abn bleeding or bruisingoc c hematuria that resolves with irrigation . Dementia 94139129 F02.B3 Continue mirtazapin e 15 mg qdrecently trial on 14 days trazadone with improvemen t with behaviors per nursing.cn tinue trazadone 25 mg at hs for anxiety with agitation Gastroesop hageal reflux disease without esophagitis 394047265 K21.9 Continue famotidine 20 mg BIDno reported GI upset Cobalamin deficiency 190 376508 E53.8 Ascorbic Acid 500 MG dailyCyano cobalamin 1000 mcg daily Benign pro static hyperplasia 128998020 N40.1 chronic ornelas catheterco ntinue finasterid e 5 mg dailyPatie nt had planned procedure for plan suprapubic ornelas on 03/21- had to be reschedule d due to transporta tion. Adult fail ure to thrive syndrome 638143099 R62.7 02/25/24 ensures increased from BID to TIDof note patient noted with 6 lb weight gaincontin ue ensure/reyna st 8 oz TIDmirtaza pine 15 mg qd.Monitor wts [id number] RASHAWN WAGGONER [address] [address] 03/30/2024 11:03:41 03/31/2024 12:43:23 Benign prostatic hyperplasia 359574778 N40.1 chronic ornelas catheterco ntinue finasterid e 5 mg dailyPatie nt had planned procedure for plan suprapubic ornelas on 03/21- had to be reschedule d due to transporta tion. Retention of urine due to occlusion of Ornelas catheter 766917946 R33.8 see hpiHX of BPH, no coude catheter available to replaced current ornelas, patient previously sent to ED for ornelas replacemen t due to difficult insertion. will send to ED for evaluation [id number] RASHAWN WAGGONER [address] [address] 04/17/2024 11:47:14 04/18/2024 16:02:01 Benign prostatic hyperplasia 017423589 N40.1 now with suprapubic catheter -continue finasterid e 5 mg daily Dementia 18820956 F02.B3 can be impulsive, easily agitatedex pect declineCon tinue mirtazapin e 15 mg qdcontinue trazadone 25 mg at hs for anxiety with agitation Suprapubic urinary catheter in situ 945667996 Z96.0 monitor for sx of site infection update provider with changes.pa tent and drainingap ply abdominal binder to prevent accidental pulling out.change catheter tubing per urology recs. [id number] RASHAWN WAGGONER [facility] [address] [place] [address] 04/20/2024 13:55:50 04/21/2024 11:40:27 Benign prostatic hyperplasia 127641564 N40.1 now with suprapubic catheter -continue finasterid e 5 mg daily Dementia 12594433 F02.B3 can be impulsive, easily agitatedex pect declineCon tinue mirtazapin e 15 mg qdcontinue trazadone 25 mg at hs for anxiety with agitation Suprapubic urinary catheter in situ 010934736 Z96.0 pt incidental ly pulled out stitch, there has been no concerns, site is clean and dry no drainagemo nitor for sx of site infection update provider with changes.pa tent and drainingap ply abdominal binder to prevent accidental pulling out.change catheter tubing per urology recs. [id number] RASHAWN WAGGONER [address] [address] 04/24/2024 08:37:53 04/26/2024 09:17:19 Benign prostatic hyperplasia 830660499 N40.1 now with suprapubic catheter -continue finasterid e 5 mg daily Dementia 15903589 F02.B3 stable today, mood pleasant .can be impulsive, easily agitatedex pect declineCon tinue mirtazapin e 15 mg qdcontinue trazadone 25 mg at hs for anxiety with agitation Suprapubic urinary catheter in situ 798382181 Z96.0 pt incidental ly pulled out stitch, there has been no concerns, site is clean and dry no drainagemo nitor for sx of site infection update provider with changes.pa tent and drainingap ply abdominal binder to prevent accidental pulling out.change catheter tubing per urology recs. [id number] RASHAWN WAGGONER [address] [address] 04/27/2024 11:14:21 05/01/2024 15:09:09 Benign prostatic hyperplasia [id number] N40.1 now with suprapubic catheter -continue finasterid e 5 mg daily Dementia [id number] F02.B3 stablecan be impulsive, easily agitatedex pect declineCon tinue mirtazapin e 15 mg qdcontinue trazadone 25 mg at hs for anxiety with agitation Suprapubic urinary catheter in situ [id number] Z96.0 pt incidental ly pulled out stitch, there has been no concerns, site is clean and dry no drainagemo nitor for sx of site infection update provider with changes.pa tent and drainingap ply abdominal binder to prevent accidental pulling out.change catheter tubing per urology recs. Essential hypertension [id number] I10 stabledilt iazem 120 mg dailymonit [place] BP [id number] RASHAWN WAGGONER [address] [address] 05/05/2024 12:40:01 05/08/2024 13:34:52 Benign prostatic hyperplasia [id number] N40.1 now with suprapubic catheter -continue finasterid e 5 mg daily Dementia [id number] F02.B3 stablecan be impulsive, easily agitatedex pect declineCon tinue mirtazapin e 15 mg qdcontinue trazadone 25 mg at hs for anxiety with agitation Suprapubic urinary catheter in situ [id number] Z96.0 pt incidental ly pulled out stitch, there has been no concerns, site is clean and dry no drainagemo nitor for sx of site infection update provider with changes.pa tent and drainingap ply abdominal binder to prevent accidental pulling out.change catheter tubing per urology recs. Essential hypertension 66280602 I10 stabledilt iazem 120 mg dailymonit or BP [id number] RASHAWN WAGGONER [address] [address] 05/15/2024 12:19:47 05/31/2024 12:02:09 Benign prostatic hyperplasia [id number] N40.1 now with suprapubic catheter -continue finasterid e 5 mg daily Dementia [id number] F02.B3 stablecan be impulsive, easily agitatedex pect declineCon tinue mirtazapin e 15 mg qdcontinue trazadone 25 mg at hs for anxiety with agitation Suprapubic urinary catheter in situ [id number] Z96.0 monitor for sx of site infection update provider with changes.pa tent and drainingab dominal binder to prevent accidental pulling out.change catheter tubing per urology recs. Essential hypertension 68015219 I10 stabledilt iazem 120 mg dailymonit [place] BP [id number] RASHAWN WAGGONER [address] [address] 05/29/2024 11:13:49 05/31/2024 12:05:16 Gastrointestinal hemorrhage 41380397 K92.2 see hpicontinu e sucralfate 1g for 14 days after mealsprilo sec 20 mg daily for 8 weeksconti nue pepcid 20 mg BIDavoid NSAIDavoid lying flat for 1 hour after eating- recommend OOB for meals Aspiration pneumonia 422 520937 J69.0 tx with IV zosyn in acute caredischa rge on augmentin BID for 5 daysavoid lying flat for 1 hour after eating- recommend OOB for meals Acute urin maciej tract infection [id number] N30.01 Enterococc us faecalis.c ontinue Augmentinh igh risk for recurrent due to s/p ornelas Acute kidney injury 1466 9001 N17.9 Likely from renal hypoperfus ion/hypote nsion. noted with metabolic acidosisHX ATNavoid nephrotoxi c meds Bradycardia 85117924 R00 .1 see hpimonitor HRavoid beta blockers Umair hematuria 53139059 5 R31.0 noted with about 700 cc of dark red, dark cranberry colored urine can not see through in ornelas catheter tubing and bag.he is on eliquis BIDwill send to ED for evaluation due to significan t amount most likely will need irrigation . [id number] RASHAWN WAGGONER [address] [address] 06/05/2024 12:03:56 06/07/2024 11:45:22 Gastrointestinal hemorrhage 96796406 K92.2 no reported coffee ground emesis since returning ontinue sucralfate 1g for 14 days after mealsprilo sec 20 mg daily for 8 weeksconti nue pepcid 20 mg BIDavoid NSAIDavoid lying flat for 1 hour after eating- recommend OOB for meals Aspiration pneumonia 422 619366 J69.0 completed abxavoid lying flat for 1 hour after eating- recommend OOB for meals Acute urin maciej tract infection 852047515 N30.01 abx completed Umair hematuria [id number] 5 R31.0 12: pink tingeddisc ussed with nursing to monitor outputcan restart eliquis [id number] RASHAWN WAGGONER [facility] [address] [place] [address] 06/08/2024 08:39:45 06/09/2024 12:00:08 Gastrointestinal hemorrhage 84952208 K92.2 no reported coffee ground emesis since returning ontinue sucralfate 1g for 14 days after mealsprilo sec 20 mg daily for 8 weeksavoid NSAIDavoid lying flat for 1 hour after eating- recommend OOB for meals Umair hematuria 5 R31.0 suprapubic catheter with geovani urine noted todaydiscu ssed with nursing to monitor outputcan restart eliquis Ulcerative esophagitis 986073022 K22.10 esophagus biopsy resulted 06/06 showed Ulcerative esophagiti s. Rare yeast and pseudohyph ae are present, consistent with Violette speciesnow on fluconazol e 200 mg qd for 14 dayscontin ue PPI and S6Ayjpz extend carafate 1 gm after meals QD. [id number] RASHAWN WAGGONER [address] [address] 06/12/2024 10:18:47 06/13/2024 14:16:39 Gastrointestinal hemorrhage 82234003 K92.2 no reported coffee ground emesis since returning ontinue sucralfate 1g for 14 days after mealsprilo sec 20 mg daily for 8 weeksavoid NSAIDavoid lying flat for 1 hour after eating- recommend OOB for mealsmonit or weekly labs for now Umair hematuria 84659391 5 R31.0 suprapubic catheter with geovani urine noted todaydiscu ssed with nursing to monitor outputcont inue eliquis Ulcerative esophagitis 700114198 K22.10 esophagus biopsy resulted 06/06 showed Ulcerative esophagiti s. Rare yeast and pseudohyph ae are present, consistent with Violette speciesnow on fluconazol e 200 mg qd for 14 dayscontin ue PPIwill extend carafate 1 gm after meals QD. [id number] RASHAWN WAGGONER [address] [address] 06/15/2024 08:20:07 06/16/2024 13:24:29 Gastrointestinal hemorrhage 12109740 K92.2 no reported coffee ground emesis since returning ontinue sucralfate prilosec 20 mg daily for 8 weeksavoid NSAIDavoid lying flat for 1 hour after eating- recommend OOB for mealsmonit or weekly labs for now Umair hematuria 33442395 5 R31.0 suprapubic catheter with geovani urine noted todaydiscu ssed with nursing to monitor outputcont inue eliquis Ulcerative esophagitis 662267276 K22.10 esophagus biopsy resulted 06/06 showed Ulcerative esophagiti s. Rare yeast and pseudohyph ae are present, consistent with Violette speciesnow on fluconazol e 200 mg qd for 14 days until 06/21conti nue PPIwill extend carafate 1 gm after meals QD. Urethral u rinary catheter in situ for detention use [id number] 104 Z96.0 prone to frequent UTI; recently completed ABX.Ornelas patent and draining.C lestere ornelas every 3-4 weeks and use catheter securenurs ing to do ornelas care twice daily encouraged . [id number] RASHAWN WAGGONER [address] [address] 06/19/2024 10:41:37 06/20/2024 12:04:02 Ulcerative esophagitis 126789072 K22.10 esophagus biopsy resulted 06/06 showed Ulcerative esophagiti s. Rare yeast and pseudohyph ae are present, consistent with Violette speciesnow on fluconazol e 200 mg qd for 14 days until 06/21conti nue PPIwill extend carafate 1 gm after meals QD. 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 [id number] RASHAWN WAGGONER [address] [facility] KIRSTEN MARTINEZ [address] 06/26/2024 10:30:09 06/27/2024 09:52:09 Ulcerative esophagitis 426491569 K22.10 esophagus biopsy resulted 06/06 showed Ulcerative esophagiti s. Rare yeast and pseudohyph ae are present, consistent with Violette speciesnow on completed fluconazol e on 07/01will extend carafate 1 gm after meals QD. Gastrointe stinal hemorrhage 19223725 K92.2 no reported coffee ground emesis since returning ontinue sucralfate prilosec 20 mg daily for 8 weeksavoid NSAIDavoid lying flat for 1 hour after eating- recommend OOB for mealsmonit or weekly labs for now Urethral u rinary catheter in situ for detention use [id number] 104 Z96.0 prone to frequent UTI; recently completed ABX.Ornelas patent and draining.C hange ornelas every 3-4 weeks and use catheter securenurs ing to do ornelas care twice daily encouraged . Atrial fibrillation 4943 6004 I48.0 continue eliquis 2.5 mg daily- monitor for hematuriao cc hematuria that resolves with irrigation . Benign pro static hyperplasia 823654473 N40.1 with suprapubic catheter -continue finasterid e 5 mg daily Dementia 40641265 F02.B3 stable at his baselineca n be impulsive, easily agitatedex pect declineCon tinue mirtazapin e 15 mg qdcontinue trazadone 25 mg at hs for anxiety with agitation Essential hypertension 97573488 I10 stabledilt iazem 120 mg dailymonit or BP Health Concerns Section Related Observation LastModified by Organization Detai ls LastModified Time None Recorded Concern Status LastModified by Organization Details LastModified Time None Recorded Advance Directives Directive N: assumed full code Payers Encounter Date Sequence Insurance Name Policy Number Policy L[place] Covered Member ID Latham Member ID Guarantor Name 06/08/2024 1 [place] [employer] Joel Acevedo [id number] Joel Acevedo 06/08/2024 2 [place] Joel Acevedo [id number] Joel Acevedo 06/12/2024 1 [place] [employer] Joel Acevedo [id number] Joel Merchantvais 06/12/2024 2 [place] Joel Acevedo [id number] Joel Acevedo 06/15/2024 1 [place] [employer] Joel Acevedo [id number] Joel Merchantvais 06/15/2024 2 [place] Joel Acevedo [id number] Joel Acevedo 06/19/2024 1 [place] [employer] Joel Acevedo [id number] Joel Acevedo 06/19/2024 2 [place] [facility] Joel Acevedo [id number] Joel Acevedo 06/26/2024 1 [place]: [employer] Joel Acevedo [id number] Joel Acevedo 06/26/2024 2 [place] [facility] Joel Acevedo [id number] Joel Acevedo Notes Date Note Type Note Provider Name and Address Organization Details Recorded Time 06/08/2024 text/html This is a 78 yo male LTC resident seen for acute rounding visit s/p readmission after acute care stay for tx of GIB, asp PNA and recurrent UTI. He was sent back to the ED on 05/29 for gross hematuria in ornelas catheter and later returned after irrigation. He has been at his baseline, nurse notes reviewed, there are no acute concerns. 06/06: Dr. Plunkett recommended starting fluconazole for esophagus infected with yeast. RASHAWN WAGGONER [address], [address], [place], [address], [facility] 06/08/2024 15:57:22 06/12/2024 text/html This is a 78 yo male LTC resident seen for acute rounding visit s/p readmission after acute care stay for tx of GIB, asp PNA and recurrent UTI. He was sent back to the ED on 05/29 for gross hematuria in ornelas catheter and later returned after irrigation.06/06: Dr. Plunkett recommended starting fluconazole for esophagus infected with yeast. Nurse notes reviewed, no acute nursing concerns. RASHAWN WAGGONER [address], [address], [place], [address], [facility] 06/12/2024 11:51:35 06/15/2024 text/html This is a 78 yo male LTC resident seen for acute rounding visit s/p readmission after acute care stay for tx of GIB, asp PNA and recurrent UTI. He was sent back to the ED on 05/29 for gross hematuria in ornelas catheter and later returned after irrigation.06/06: Dr. Plunkett recommended starting fluconazole for esophagus infected with yeast. seen for acute rounding visit. medically he is currently at his baseline in [facility], there are no acute nursing concerns. Nurse notes reviewed, no acute nursing concerns. RASHAWN WAGGONER [address], [address], [place], [address], [facility] 06/15/2024 15:54:20 06/19/2024 text/html This is a 78 yo male LTC resident seen for acute rounding visit. He has been at his baseline in [facility]. He ornelas has been patent and without any hematuria.He denies any throat discomfort, nursing reports that he is eating ok, he continues on antifungal, compliant with meds. Nurse notes reviewed, no acute nursing concerns. RASHAWN WAGGONER [address], [address], [place], [address], [facility] 06/19/2024 14:23:00 06/26/2024 text/html This is a 78 yo male LTC resident seen for routine rounding visit. He has been at his baseline in [facility]. There are no acute nursing concerns. He is dependent on nursing staff to meet health care needs. He prefers to stay in his room, anxiety increases when he is out of his room. NN reviewed. RASHAWN WAGGONER [address] , [address], [place], [address], [facility] 06/26/2024 13:20:51
[2024-08-07 07:09] LABS: Basophils Percent Auto 0.2 % (0-2); Eosinophils Absolute Auto 0.1 X10*3/uL (0.0-0.4); Hematocrit 33.6 % (42.0-52.0); Hemoglobin 11.4 g/dl (14.0-18.0); Imm Gran Abs Auto 0.07 X10*3/uL (0.00-0.03); Imm Gran Pct Auto 0.5 % (0.0-0.4); Lymphocytes Absolute Auto 1.8 X10*3/uL (1.2-4.9); Lymphocytes Percent Auto 13.3 % (20-40); Mean Corpuscular HGB Conc 33.9 g/dl (31.0-36.0); Mean Corpuscular Volume 91.3 fL (80.0-98.0); Mean Platelet Volume 11.1 fL (9.4-12.4); Monocytes Absolute Auto 1.2 X10*3/uL (0.1-1.2); Neutrophils Absolute Auto 10.3 x10*3/uL (2.0-8.3); Red Blood Count 3.68 X10*6/uL (4.60-5.80)
[2024-08-07 07:11] LABS: Platelet Count 191 X10*3/uL (160-400); White Blood Count 13.6 X10*3/uL (4.8-10.8)
[2024-08-07 07:53] LABS: Anion Gap 15 (12-20); Blood Urea Nitrogen 18 mg/dL (9-16); Calcium 8.7 mg/dL (8.4-10.2); Carbon Dioxide 18 mmol/L (22-29); Chloride 109 mmol/L (96-108); Estimated Glomerular Filt Rate > 60; Glucose Random 83 mg/dL (60-115); Potassium 4.3 mmol/L (3.3-5.1); Sodium 138 mmol/L (135-145)
== END 2024-08-07 06:22 | disposition home or self-care (01) ==
LOC: HO.MMNH3L 06:21
PROVIDERS: Visit Provider Family Medicine
DX: G93.41 Metabolic encephalopathy (principal); N39.0 Urinary tract infection, site not specified; F41.8 Other specified anxiety disorders
CPT/HCPCS: 36415; 80048; 85025

== ENCOUNTER 2024-09-04 01:25 | Emergency (ER) | payer MEDICARE, MEDICAID, SELFPAY ==
[2024-09-04 01:42] VITALS: BP 114/85; BP 132/89; PULSE 74; PULSE 75; RESP 14; O2SAT 98; BMI 16.0
--- NOTE | 2024-09-04 02:16 | ED_ITS ---
HPI - Male Genitourinary General Chief complaint: Urogenital-Male Stated complaint: catheters issues Time Seen by Provider: 09/04/24 02:05 Source: EMS Mode of arrival: EMS Limitations: other (Poor historian) History of Present Illness ED Provider: Dr. Delicia Paredes HPI Narrative: patient comes to the emergency room from [facility]. Seems that patient has a 20 Kyrgyz Moreau suprapubic catheter and he has had no output today. Patient unable to give much history. On arrival to the ED, bladder scan shows that the patient has over 400 cc of urine Related Data Home Medications ?Medication ?Instructions ?Recorded ?Confirmed apixaban 2.5 mg tablet (Eliquis) 2.5 mg PO BID 08/03/22 05/20/24 cyanocobalamin (vitamin B-12) 1,000 mcg PO DAILY 08/03/22 05/20/24 1,000 mcg tablet finasteride 5 mg tablet 5 mg PO DAILY 08/03/22 05/20/24 acetaminophen 325 mg tablet 650 mg PO Q6H PRN Fever Or Pain 02/18/23 05/20/24 (Tylenol) bisacodyl 10 mg rectal suppository 10 mg RI DAILY PRN Constipation 02/18/23 05/20/24 magnesium hydroxide 400 mg/5 mL 30 ml PO DAILY PRN Constipation 02/18/23 05/20/24 oral suspension (Milk of Magnesia) sennosides 8.6 mg-docusate sodium 1 tab-cap PO BID 02/18/23 05/20/24 50 mg tablet (Senna with Docusate Sodium) sodium phosphates 19 gram-7 118 ml RI DAILY PRN Constipation 02/18/23 05/20/24 gram/118 mL enema (Fleet Enema) methenamine hippurate 1 gram tablet 1 g PO BID 03/17/24 05/20/24 mirtazapine 15 mg tablet (Remeron) 15 mg PO BEDTIME 03/17/24 05/20/24 trazodone 50 mg tablet 25 mg PO BEDTIME 03/17/24 05/20/24 Lactobacillus acidophilus 10,000 mmu cells PO DAILY 05/20/24 05/20/24 (Acidophilus capsule) mupirocin 2 % topical ointment 1 appl topical BID 05/20/24 05/20/24 Previous Rx's ?Medication ?Instructions ?Recorded amoxicillin 500 mg-potassium 1 tab PO BID #10 tabs 05/27/24 clavulanate 125 mg tablet omeprazole magnesium 10 mg oral 20 mg PO DAILY 8 weeks #30 ea 05/27/24 suspension,delayed release (Prilosec) sucralfate 100 mg/mL oral 10 ml PO QID 14 days #560 mL 05/27/24 suspension (Carafate) Allergies Allergy/AdvReac Type Severity Reaction Status Date / Time No Known Allergies Allergy Verified 09/04/24 01:44 Review of Systems Review of Systems: Constitutional : No Weight loss, No Fever, No Chills, No Night Sweats, No Fatigue, No Malaise ENT/Mouth : No Hearing loss, No Ear Pain, No Nasal Congestion, No Sinus Pain, No Hoarseness, No sore throat, No Rhinorrhea, No Swallowing Difficulty Eyes: No Eye Pain, No Swelling, No Redness, No Foreign Body, No Discharge, No Vision Changes Cardiovascular : No Chest Pain, No SOB, No Dyspnea on Exertion, No Orthopnea, No Edema, No Palpitations Respiratory : No Cough, No Sputum, No Wheezing, No Smoke Exposure, No Dyspnea Gastrointestinal : No Nausea, No Vomiting, No Diarrhea, No Constipation, No abdominal Pain, No Hematochezia, No Melena Genitourinary : complaining of suprapubic Moreau catheter not functioning, No Uri nary Frequency, No Hematuria, No Urinary Incontinence, No Urgency, No Flank Pain, No Urinary Flow Changes, No Hesitancy Musculoskeletal : No joint pain, No Myalgias, No Joint Swelling Skin : No Skin Lesions, No rash Neuro : No Weakness, No Numbness, No Paresthesias, No Loss of Consciousness, No Dizziness, No Headache Psych : No Anxiety/Panic, No Depression, No SI/HI/AH/VH, No Social Issues, Heme/Lymph: No Bruising, No Bleeding,No Lymphadenopathy Endocrine : No Polyuria, No Polydipsia, No Temperature Intolerance PMFSH Past Medical History Medical History Suprapubic catheter Coffee ground emesis History of rotator cuff syndrome Tricuspid regurgitation Multiple falls COVID-19 SIRS (systemic inflammatory response syndrome) 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 Polyosteoarthritis Metabolic encephalopathy Depression Anxiety Mood disturbance Vitamin B deficiency Chronic indwelling Moreau catheter GERD (gastroesophageal reflux disease) HTN (hypertension) MRSA bacteremia BPH (benign prostatic hyperplasia) Hx of halfway use of blood thinners Atrial fibrillation Dementia Social History Social History Household Members: Unknown / Unable to assess Housing: Unknown / Unable to assess Are you a primary post anesthesia care unit nurse to a significant other at home: No Do you presently have visiting nurse or other home services: No Unable to assess alcohol history related to: Unable to respond Alcohol intake: never Comment: 1:2 sitter in room Patient Tobacco Use Status: Tobacco use Unknown Second Hand Smoke Exposure: No Advance Directives: Yes Advance Directives on File: Yes Advance Directives Date on File: 06/14/23 Do you have a plan to hurt others: No Plan service: No Current occupational status: disabled Physical Exam Vital Signs: Vital Signs: Last Vital Signs Pulse 75 09/04/24 01:42 Resp 14 09/04/24 01:42 BP 132/89 09/04/24 01:42 Pulse Ox 98 09/04/24 01:42 O2 Del Method Room Air 09/04/24 01:42 BMI result Body Mass Index 16.0 Const: Other: Appearance: Alert. Oriented X3. patient's seems uncomfortable Eyes: Pupils equal, round and reactive to light. ENT: Pharynx normal. Neck: Normal inspection. Neck supple. No lymph nodes noted. No crepitus CVS: Normal heart rate and rhythm. Pulses normal. Normal S1 and S2 Respiratory: No respiratory distress. Breath sounds normal. No Wheezing. No rales Abdomen: Soft , palpable bladder, distended, bladder scan shows more than 400 cc of urine Skin: Skin warm and dry. Normal skin color. Normal skin turgor. Extremities: No lower extremity edema. No Lacerations. No Rash Neuro: Oriented X 3. No motor deficit. No sensory deficit. Moving all extremities. No slurred speech. CN 2 through 12 grossly intact Psych: calm, cooperative, normal affect Course Course Course Narrative: when Moreau catheter was removed, a large amount of urine came out through the suprapubic ostomy a 20 Kyrgyz coude was inserted easily. Patient feeling much better it was noted that patient's in coude from the long-term only had 10 cc of water in the balloon rather than 30, likely dislodged. Medical Decision Making Medical Decision Making [facility] Narrative: Patient feeling much better. Urinalysis at baseline, patient has chronic colonization. Patient does not have any symptoms that would indicate a UTI. At baseline patient has a large amount of leukocyte esterase RBCs and WBCs. Patient's urine is negative for nitrite and negative for bacteria. At this time, antibiotics not indicated. Patient's suprapubic Moreau catheter draining successfully Lab Data Labs: Lab Results 09/04/24 Range/Units 02:22 Urine Color Yellow Urine Appearance Turbid Urine pH 7.5 (5.0-9.0) Ur Specific Hope 1.010 (1.005-1.025) Urine Protein 30 (1+) H (Neg-Trace) mg/dL Urine Glucose (UA) Negative (Negative) mg/dL Urine Ketones Negative (Negative) mg/dL Urine Blood Large (3+) H (Negative) Urine Nitrite Negative (Negative) Ur Leukocyte Esterase Large (3+) H (Negative) Urine RBC >20 H (0-2) /HPF Urine WBC >50 H (0-5) /HPF Ur Squamous Epith Cells 0-2 (0-2) /HPF Urine Bacteria None Seen (None Seen) Hyaline Casts 3-5 (0-2) /LPF Discharge Plan Discharge Clinical Impression: Dislodged Moreau catheter Patient Disposition: Home, Self-Care Instructions: Catheter-associated Urinary Tract Infection (ED), Moreau Catheter Placement and Care (ED) Additional Instructions: Please follow-up with your primary care physician tomorrow. If you have any worsening or new symptoms, please return to the emergency room or call 911 Prescriptions: No Action cyanocobalamin (vitamin B-12) 1,000 mcg Tablet 1,000 mcg PO DAILY finasteride 5 mg Tablet 5 mg PO DAILY Eliquis 2.5 mg Tablet 2.5 mg PO BID acetaminophen [Tylenol] 325 mg Tablet 650 mg PO Q6H PRN (Reason: Fever Or Pain) Rx Instructions: DO NOT EXCEED 3 G IN 24 HRS sennosides-docusate sodium [Senna with Docusate Sodium] 8.6-50 mg Tablet 1 tab-cap PO BID magnesium hydroxide [Milk of Magnesia] 400 mg/5 mL Suspension 30 ml PO DAILY PRN (Reason: Constipation) bisacodyl 10 mg Suppository 10 mg RI DAILY PRN (Reason: Constipation) Fleet Enema 19-7 gram/118 mL Enema 118 ml RI DAILY PRN (Reason: Constipation) trazodone 50 mg Tablet 25 mg PO BEDTIME methenamine hippurate 1 gram Tablet 1 g PO BID mirtazapine [Remeron] 15 mg Tablet 15 mg PO BEDTIME mupirocin 2 % Ointment 1 appl TOPICAL BID Acidophilus Capsule 10,000 mmu cells PO DAILY Prilosec 10 mg susp,delayed release for recon 20 mg PO DAILY 56 Days Qty: 30 0RF Rx Instructions: For 8 weeks then once daily sucralfate [Carafate] 100 mg/mL suspension 10 ml PO QID 14 Days Qty: 560 0RF Rx Instructions: swish in mouth and swallow; use after food/drink amoxicillin-pot clavulanate 500-125 mg Tablet 1 tab PO BID Qty: 10 0RF Print Language: Frisian
[2024-09-04 02:28] LABS: Appearance Urine Turbid; Color Urine Yellow; Glucose Urine UA Negative (Negative); Leukocyte Esterase Urine Large (3+) (Negative); Nitrite Urine Negative (Negative); PH 7.5 (5.0-9.0); UMIC TRIGGER UACC YES; Urine Blood Large (3+) (Negative); Urine Ketones Negative (Negative); Urine Protein 30 (1+) mg/dL (Neg-Trace)
--- NOTE | 2024-09-04 02:28 | PC.NURSE ---
Supra pubic catheter replaced with 20Fr caudet. Approx 400cc of clear yellow urine output. Urine sent to the lab. Catheter currently draining well. Pt tolerated well.
[2024-09-04 02:41] LABS: Bacteria Urine None Seen (None Seen); RBC Urine >20 /HPF (0-2); Squamous Epithelial Cell Urine 0-2 /HPF (0-2); UACC Culture Trigger YES; WBC Urine >50 /HPF (0-5)
--- NOTE | 2024-09-04 04:24 | PC.NURSE ---
Multiple unsuccessful attempts at providing nurse to nurse report. Pt returning to [facility] via EMS.
[2024-09-04 04:26] VITALS: BP 132/89; PULSE 75; RESP 14; TEMP -17.7; TEMP 0; O2SAT 98
--- NOTE | 2024-09-04 04:41 | PC.NURSE ---
Nurse from [facility] returned call. Discharge instructions provided.
== END 2024-09-04 04:27 | disposition home or self-care (01) ==
PROVIDERS: Emergency Provider Emergency Medicine; PCP Family Medicine
DX: T83.020A Displacement of cystostomy catheter, initial encounter (principal); Y83.3 Surgical operation with formation of external stoma as the cause of abnormal reaction of the patient, or of later complication, without mention of misadventure at the time of the procedure; Y92.9 Unspecified place or not applicable; I10 Essential (primary) hypertension; F03.90 Unspecified dementia, unspecified severity, without behavioral disturbance, psychotic disturbance, mood disturbance, and anxiety
CPT/HCPCS: 36415; 51705; 80048; 81001; 85025; 87086; 99283

== ENCOUNTER 2024-09-04 06:19 | Outpatient (REF) | payer MEDICARE, MEDICAID, SELFPAY ==
[2024-09-04 06:13] LABS: MANUAL DIFF FLAG NO
--- OUTSIDE RECORDS SUMMARY | 2024-09-04 06:29 | XMS_ITS | Data Portability ---
Author Organization [facility], Main Office Address [address] [facility] [address] [place] [address] Care Team Providers Care Orderlies Teacher Name Role Phone STANISLAV CHEN 3RD FLOOR OTHER [phone] Assessment Encounter Date Assessment Date Assessment LastModified [...] Organization Details Recorded Time Benign prostatic hyperplasia 852394501 Active 2021 MARK SCHROEDER NP [address] [facility], [address], [place], [address], [facility] [employer] [facility] 2 12:42:30 Vascular dementia 683271143 Active 2021 MARK SCHROEDER NP [address] [facility], [address], [place], [address], [facility] 2 12:42:36 Constipatio n 77412740 Active 2021 MARK SCHREODER NP [address] [facility], [address], [place], [address], [facility] [employer] [facility] 2 12:42:45 Atrial fibrillatio n 14372627 Active 2021 MARK SCHROEDER NP [address] [facility], [address], [place], [address], [facility] [employer] [facility] 2 12:42:54 Falls 785513959 Active 2021 MARK SCHROEDER NP [address], [address], [place], [address], [facility] 2 12:44:39 Gastroesoph ageal reflux disease without esophagitis 346628557 Active 2021 MARK SCHROEDER NP [address], [address], [place], [address], [facility] 2 12:57:57 Acute urinary tract infection 313382093 Active 2021 MARK SCHROEDER NP [address], [address], [place], [address], [facility] 2 14:13:29 Asthenia 68787183 Active 2021 Estefanía Witt MD [address], [address], [place], [address], [facility] 2 16:45:01 Fever 118523266 Active 2021 MARK SCHROEDER NP [address], [address], [place], [address], [facility] 2 10:07:39 COVID-19 131423918 Active 2021 MARK SCHROEDER NP [address], [address], [place], [address], [facility] 2 11:15:20 Bacteremia 7495088 Active 2022 MARK SCHROEDER NP [address], [address], [place], [address], [facility] 3 10:08:56 Pain of right shoulder joint 8528479486552 9100 Active 2022 MARK SCHROEDER NP [address], [address], [place], [address], [facility] 3 12:54:04 Cobalamin deficiency 248985098 Active 2022 Estefanía Witt MD [address], [address], [place], [address], [facility] 3 13:34:49 Sepsis caused by Escherichia coli 908517745 Active 2022 MARK SCHROEDER NP [address], [address], [place], [address], [facility] 3 11:28:51 Dementia 06817739 Active 2022 Estefanía Witt MD [address], [address], [place], [address], [facility] 3 15:58:50 Urinary tract infectious disease 72322663 Active 2023 RASHAWN WAGGONER [address], [address], [place], [address], [facility] 4 20:24:56 Traumatic hematuria 35042874 Active 2023 RASHAWN WAGGONER [address], [address], [place], [address], [facility] 4 20:56:51 Essential hypertensio n 72916232 Active 2023 RASHAWN WAGGONER [address], [address], [place], [address], [facility] 4 21:01:00 Nutritional disorder 2407384 Active 2023 RASHAWN WAGGONER [address], [place], [address], [facility] 4 21:02:35 Adult failure to thrive syndrome 846842229 Active 2023 Estefanía Witt MD [address] [facility], [address], [place], [address], [facility] 4 21:38:36 Bradycardia 16668404 Active 2023 RASHAWN WAGGONER [address], [address], [place], [address], [facility] 4 14:06:56 Acute kidney injury 18124880 Active 2023 RASHAWN WAGGONER [address], [address], [place], [address], [place] [facility] 4 14:06:59 Aspiration pneumonia 891349708 Active 2023 RASHAWN WAGGONER [address], [address], [place], [address], [facility] 4 14:07:05 Gastrointes tinal hemorrhage 92268898 Active 2023 JOHN WAGGONERP [address], [address], [place], [address], [facility] 4 14:07:15 Ulcerative esophagitis 400077220 Active 2023 JOHN WAGGONERP [address], [place], [address], [facility] 4 15:56:54 Umair hematuria 699206878 Active 2023 RASHAWN WAGGONER [address] [facility], [address], [place], [address], [facility] 4 15:56:56 Problem Notes None recorded. [...] 118 mm[Hg] 74 mm[Hg] RASHAWN WAGGONER [address] [facility], [address], [place], [address], [facility] 4 15:18:17 Date Recorded Body height Heart rate Respiratory rate Body temperature Oxygen saturation Oxygen saturation in Arterial blood by Pulse oximetry Systolic blood pressure Diastolic blood pressure Provider Name and Address Organization Details Last Updated DateTime 4 157.48 cm 61 /min 18 /min 97.5 [degF] 95 % 95 % 121 mm[Hg] 75 mm[Hg] RASHAWN WAGGONER [address], [place], [address], [facility] 4 11:34:53 Date Recorded Body height Provider Name an d Address Organization Details Last Updated DateTime 06/15/2024 157.48 cm RASHAWN WAGGONER [address], [address], [place], [address], [facility] 06/15/2024 09:44:54 Date Recorded Body height Provider Name an d Address Organization Details Last Updated DateTime 06/26/2024 157.48 cm RASHAWN WAGGONER [address], [address], [place], [address], [facility] 06/26/2024 13:14:24 Social History Question Answer Notes LastModified by Organizat ion Details LastModified Time Tobacco Smoking Status Never Smoker Estefanía Witt MD [address] [facility], [address], [place], [address], [facility] 01/20/2022 16:47:58 Do You Have An [...] not available 01/16/2022 Where Do You Live? [facility] Information not available 06/11/2023 Legal Guardian? Yes Informati on not available 01/20/2022 Do You Have A Medical Power Of Inner Diameter Grinder Tool? Yes Guardian, Alecia Isabel Information not available [...] 30 mcg/0.3 mL dose 05/14/2021 [facility] 15:49:57 COVID-19, mRNA, LNP-S, PF, 30 mcg/0.3 mL dose 11/21/2020 completed Soumya yañez [facility] 04/17/2022 15:50:05 COVID-19, mRNA, LNP-S, PF, 30 mcg/0.3 mL dose 11/04/2021 [facility] 15:50:17 COVID-19, mRNA, LNP-S, PF, 30 mcg/0.3 mL dose 04/16/2022 [facility] 15:50:25 Influenza, adjuvanted, quadrivalent, PF 05/18/2022 completed Netta yañez [facility] 07/22/2023 10:59:51 Influenza, adjuvanted, quadrivalent, PF 02/10/2023 [facility] 11:00:07 Past Encounters Encounter ID Performer Location Encounter Start Date Encounter Closed Date Diagnosis/Indication Diagnosis SNOMED-CT Code Diagnosis ICD10 Code Diagnosis Note [id number] AUDI CAPONE [address] [facility] [place] [address] 01/16/2022 09:17:04 01/20/2022 14:19:48 Vascular dementia 769210520 F01.50 remeron 15 mg hspsych prnchart and monitor any changes in mood or behaviors Atrial fibrillation 4943 6004 I48.91 cardizem 120 mg dailyeliqu is 5 mg bidmonitor heart rate Benign pro static hyperplasia 252397640 N40.1 ornelas cathflomax 0.8 mg dailyfinas teride 5 mg daily Gastroesop hageal reflux disease without esophagitis 982088579 K21.9 pepcid 20 mg daily Constipation 83658013 K5 9.00 senna plus 2 tabs bid [place] 301792738 R29.6 PT OT eval and treatfall precaution sfrequent safety checks [id number] MARK SCHROEDER NP [address] [address] 01/19/2022 14:12:01 01/23/2022 17:01:11 Acute urinary tract infection 626181436 N39.0 cephalexin 500 mg qid x10 daysmonito r for symptoms Benign pro static hyperplasia 596351465 N40.1 ornelas cathflomax 0.8 mg dailyfinas teride 5 mg daily [id number] Estefanía Witt MD [address] [address] 01/20/2022 11:55:23 01/28/2022 16:12:54 Acute urinary tract infection 382594150 N30.01 U/A reportedly + in ED (report not available. Continue cephalexin 500 mg QID x10 days (pending cx)Will get copies of U/A and cx from [facility].Monito r for sxs. Benign pro static hyperplasia 068055121 N40.1 Continue ornelas cathContin ue tamsulosin 0.8 mg qd and finasterid e 5 mg qd.Getting f/u appt with uro. Vascular dementia 389639 004 F01.50 Suspect some element of EtOHic [...] risk. Gastroesop hageal reflux disease without esophagitis 806463039 K21.9 No current sxs.Contin ue famotidine 20 mg qd. Constipation 12813450 K5 9.09 Continue senna plus 2 tabs BID.Monito r bowel function. Falls 710004013 R29.6 As above. Umair hematuria 58421394 5 R31.0 Unclear if from UTI vs. traumatic, vs combinatio n of the 2.Clear now.Monito r Asthenia 87316768 R53.1 Very deconditio jen.Needs PT/OT for strengthen ing, balance, gait training, safety and function.C ontinue fall precaution s.Monitor for safety. [id number] MARK SCHROEDER NP [address] [address] 01/22/2022 12:51:54 01/28/2022 19:53:28 Acute urinary tract infection 657046753 N30.01 recoveredc ephalexin 500 mg qid x10 daysmonito r for symptoms Benign pro static hyperplasia 779832116 N40.1 ornelas cathflomax 0.8 mg dailyfinas teride 5 mg daily Asthenia 65618732 R53.1 PT OT eval and treatfall precaution sfrequent safety checks [id number] MARK SCHROEDER NP [address] [address] 01/26/2022 13:15:39 01/29/2022 09:29:27 Acute urinary tract infection 219668133 N30.01 macobid 100mg bid to 01/29monito r for symptoms Benign pro static hyperplasia 074690627 N40.1 ornelas cathflomax 0.8 mg dailyfinas teride 5 mg dailyurolo gy consult [id number] MARK SCHROEDER NP [address] [address] 01/30/2022 12:08:30 02/13/2022 16:22:20 Acute urinary tract infection 066334643 N30.01 macobid 100mg bid to 01/29monito r for symptoms Benign pro static hyperplasia 082391413 N40.1 ornelas cathflomax 0.8 mg dailyfinas teride 5 mg dailyurolo gy consult Vascular dementia 596884 004 F01.50 remeron 15 mg hspsych prnchart and monitor any changes in mood or behaviors [id number] MARK SCHROEDER NP [address] [address] 02/04/2022 12:45:15 02/16/2022 20:39:21 Benign prostatic hyperplasia 428961829 N40.1 ornelas cathflomax 0.8 mg dailyfinas teride 5 mg dailyurolo gy consult Vascular dementia 623987 004 F01.50 remeron 15 mg hspsych prnchart and monitor any changes in mood or behaviors [id number] MARK SCHROEDER NP [address] [address] 02/11/2022 12:58:05 02/17/2022 16:07:34 Benign prostatic hyperplasia 885657224 N40.1 ornelas cathflomax 0.8 mg dailyfinas teride 5 mg dailyurolo gy consult Vascular dementia 314795 004 F01.50 remeron 15 mg hspsych prnchart and monitor any changes in mood or behaviors Atrial fibrillation 4943 6004 I48.91 cardizem 120 mg dailyeliqu is 5 mg bidmonitor heart rate Gastroesop hageal reflux disease without esophagitis 682237809 K21.9 pepcid 20 mg daily Constipation 51919419 K5 9.00 senna plus 2 tabs bid [place] 136686173 R29.6 PT OT eval and treatfall precaution sfrequent safety checks [id number] MARK SCHROEDER NP [address] [address] 02/18/2022 11:43:57 02/26/2022 11:37:51 Benign prostatic hyperplasia 200262714 N40.1 ornelas cath-will be chronic due to failed voiding trialfloma x 0.8 mg dailyfinas teride 5 mg dailyurolo gy consult Vascular dementia 154451 004 F01.50 remeron 15 mg hspsych prnchart and monitor any changes in mood or behaviors Asthenia 83618907 R53.1 PT OT eval and treatfall precaution sfrequent safety checks [id number] MARK SCHROEDER NP [address] [address] 02/26/2022 12:48:09 03/04/2022 15:36:11 Vascular dementia 230729921 F01.50 remeron 15 mg hspsych prnchart and monitor any changes in mood or behaviors Benign pro static hyperplasia 250596205 N40.1 ornelas cath-will be chronic due to failed voiding trialfloma x 0.8 mg dailyfinas teride 5 mg dailyurolo gy consult [id number] Patsy Waite MD [address] [address] 03/13/2022 08:12:36 03/17/2022 14:45:27 Asthenia 10067303 R53.1 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 monitor and support as needed Vascular dementia 936397 004 F01.50 expect declinewil l monitor and support as needed Gastroesop hageal reflux disease without esophagitis 671709545 K21.9 famotidine 20 mg bidwill monitor Benign pro static hyperplasia 057068225 N40.1 Ornelas catheterfu urologyfin asteride 5 mg dailytamsu losin 0.8 mg dailywill monitor Atrial fibrillation 4943 6004 I48.0 apixaban 5 mg biddiltiaz em ER 120 mg daily for rate controlwil l monitor 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 mirtazapin e 15 mg dailywill monitor Cobalamin deficiency 190 421261 E53.8 B12 1000 mcg dailywill monitor [id number] MARK SCHROEDER NP [address] [address] 04/03/2022 11:19:01 04/07/2022 14:04:53 Asthenia 00115121 R53.1 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 monitor and support as needed Vascular dementia 667986 004 F01.50 expect declinewil l monitor and support as neededguar kev in place Gastroesop hageal reflux disease without esophagitis 011732821 K21.9 famotidine 20 mg bidwill monitor Benign pro static hyperplasia 470690914 N40.1 Ornelas catheterf/ u urologyfin asteride 5 mg dailytamsu losin 0.8 mg dailywill monitor Atrial fibrillation 4943 6004 I48.0 apixaban 5 mg biddiltiaz em ER 120 mg daily for rate controlwil l monitor Mixed anxi ety and depressive disorder 748634953 F41.8 mirtazapin e 15 mg dailywill monitor Cobalamin deficiency 190 516658 E53.8 B12 1000 mcg dailywill monitor [id number] MARK SCHROEDER NP [address] [address] 04/17/2022 10:06:54 04/21/2022 15:17:37 Fever 970243435 R50.9 ua, covid swab negative, cbc, cmp, blood culturemon itor for response to tylenol [id number] Patsy Waite MD [address] [address] 06/12/2022 06:14:20 06/16/2022 15:35:15 Vascular dementia 763860096 F01.50 expect declinewil l monitor and support as needed Benign pro static hyperplasia 692041486 N40.1 Ornelas catheterfu urologyfin asteride 5 mg dailytamsu losin 0.8 mg dailywill monitor Atrial fibrillation 4943 6004 I48.0 apixaban 2.5 mg biddiltiaz em ER 120 mg daily for rate controlwil l monitor Cobalamin deficiency 190 497460 E53.8 B12 1000 mcg dailywill monitor Mixed anxi ety and depressive disorder 174662152 F41.8 mirtazapin e 15 mg dailywill monitor [id number] MARK SCHROEDER NP [address] [address] 06/29/2022 10:38:59 07/10/2022 13:14:29 COVID-19 991111900 U07.1 06/26 covid positiveen courage po intakecons ider ivf for anorexiaco nsider paxlovid or decadron for symptomsse nd to ED for decompensa tion [id number] MARK SCHROEDER NP [address] [address] 07/01/2022 11:29:19 07/10/2022 13:46:41 COVID-19 362088148 U07.1 06/26 covid positiveen courage po intakecons ider ivf for anorexiaco nsider paxlovid or decadron for symptomsse nd to ED for decompensa tion [id number] MARK SCHROEDER NP [facility] [address] [place] [address] 07/02/2022 12:52:16 07/10/2022 14:18:58 COVID-19 907743834 U07.1 06/26 covid positiveen courage po intakecons ider ivf for anorexiaco nsider paxlovid or decadron for symptomsse nd to ED for decompensa tion [id number] MARK SCHROEDER NP [facility] [address] [place] [address] 07/03/2022 11:19:45 07/10/2022 14:49:59 COVID-19 510275228 U07.1 06/26 covid positiveen courage po intakecons ider ivf for anorexiaco nsider paxlovid or decadron for symptomsse nd to ED for decompensa tion [id number] MARK SCHROEDER NP [address] [address] 07/06/2022 13:44:51 07/10/2022 15:22:57 COVID-19 332789545 U07.1 06/26 covid positive-a symptomati c, recovered by dateencour age po intakecons ider ivf for anorexiaco nsider paxlovid or decadron for symptomsse nd to ED for decompensa tion [facility] [address] [place] [address] 08/03/2022 12:47:40 08/05/2022 13:54:59 Acute urinary tract infection 322113563 N30.01 cefuroxime 250 mg bid x7 days 2/8monitor for symptoms MARK SCHROEDER NP [address] [address] 08/13/2022 08:31:00 08/17/2022 14:54:18 Bacteremia 6120255 R78.81 vanco 1250 mg iv daily to 3/1monitor for symptoms Vascular dementia 595197 004 F01.50 expect declinewil l monitor and support as needed Benign pro static hyperplasia 737778557 N40.1 Ornelas catheterf/ u urologyfin asteride 5 mg dailytamsu losin 0.8 mg dailywill monitor Atrial fibrillation 4943 6004 I48.0 apixaban 2.5 mg biddiltiaz em ER 120 mg daily for rate controlwil l monitor Cobalamin deficiency 190 026255 E53.8 B12 1000 mcg dailywill monitor Mixed anxi ety and depressive disorder 889371111 F41.8 mirtazapin e 15 mg dailywill monitor Gastroesop hageal reflux disease without esophagitis 679621498 K21.9 famotidine 20 mg bidwill monitor [place] 221047344 R29.6 PT OT eval and treatfall precaution sfrequent safety checks [id number] MARK SCHROEDER NP [address] [address] 08/17/2022 15:26:00 08/19/2022 10:15:46 Bacteremia 0279208 R78.81 vanco 1250 mg iv daily to 3/1monitor for symptoms Acute urin maciej tract infection 055003365 N30.01 [facility] [id number] MARK SCHROEDER NP [address] [address] 08/19/2022 10:54:09 08/25/2022 10:12:15 Bacteremia 5424235 R78.81 vanco 1250 mg iv daily to 3/1monitor for symptoms Vascular dementia 208850 004 F01.50 expect declinewil l monitor and support as needed Benign pro static hyperplasia 561829826 N40.1 Ornelas catheterf/ u urologyfin asteride 5 mg dailytamsu losin 0.8 mg dailywill monitor Atrial fibrillation 4943 6004 I48.0 apixaban 2.5 mg biddiltiaz em ER 120 mg daily for rate controlwil l monitor Cobalamin deficiency 190 227963 E53.8 B12 1000 mcg dailywill monitor Mixed anxi ety and depressive disorder 002784323 F41.8 mirtazapin e 15 mg dailywill monitor Gastroesop hageal reflux disease without esophagitis 626745278 K21.9 famotidine 20 mg bidwill monitor [place] 855209682 R29.6 PT OT eval and treatfall precaution sfrequent safety checks [id number] MARK AUDI [facility] [address] [place] [address] 08/27/2022 11:24:35 09/01/2022 07:22:03 Bacteremia 4230780 R78.81 vanco 1250 mg iv daily to 3/1monitor for symptoms Benign pro static hyperplasia 668079252 N40.1 Ornelas catheterf/ u urologyfin asteride 5 mg dailytamsu losin 0.8 mg dailywill monitor [id number] MARKMauricio SCHROEDER NP [address] [address] 09/01/2022 12:54:58 09/03/2022 12:37:02 Bacteremia 3827702 R78.81 vanco 1250 mg iv daily to 3/1monitor for symptoms Benign pro static hyperplasia 654206129 N40.1 Ornelas catheterf/ u urologyfin asteride 5 mg dailytamsu losin 0.8 mg dailywill monitor [id number] MARK SCHROEDER NP [address] [address] 09/10/2022 12:26:40 09/16/2022 14:16:46 Pain of right shoulder joint 7318887304 0482595 M25.511 xrays showed rotator cuff injury/tea rortho consult [id number] Patsy Waite MD [address] [address] 10/14/2022 06:36:11 10/20/2022 11:20:30 Vascular dementia 459260421 F01.50 expect declinewil l monitor and support as needed Atrial fibrillation 4943 6004 I48.0 apixaban 2.5 mg biddiltiaz em ER 120 mg daily for rate controlwil l monitor Pain of ri ght shoulder joint 3227370851 9488238 M25.511 diclofenac gel bidAPAP 650 mg q6h prnPT/OT prnawait ortho consultati onwill monitor Benign pro static hyperplasia 173197820 N40.1 Ornelas catheterfu urologyfin asteride 5 mg dailytamsu losin 0.8 mg dailywill monitor Gastroesop hageal reflux disease without esophagitis 385655686 K21.9 famotidine 20 mg bidwill monitor Cobalamin deficiency 190 188101 E53.8 B12 1000 mcg dailywill monitor Mixed anxi ety and depressive disorder 175443993 F41.8 mirtazapin e 15 mg dailywill monitor [id number] MARK SCHROEDER NP [address] [address] 12/04/2022 11:16:37 12/10/2022 12:55:03 Vascular dementia 654503034 F01.50 expect declinewil l monitor and support as needed Atrial fibrillation 4943 6004 I48.0 apixaban 2.5 mg biddiltiaz em ER 120 mg daily for rate controlwil l monitor Pain of ri ght shoulder joint 8865800877 3158089 M25.511 diclofenac gel bidAPAP 650 mg q6h prnPT/OT prnawait ortho consultati onwill monitor Benign pro static hyperplasia 804669612 N40.1 Ornelas catheterf/ u urologyfin asteride 5 mg dailytamsu losin 0.8 mg dailywill monitor Gastroesop hageal reflux disease without esophagitis 667193712 K21.9 famotidine 20 mg bidwill monitor Cobalamin deficiency 190 465157 E53.8 B12 1000 mcg dailywill monitor Mixed anxi ety and depressive disorder 893760481 F41.8 mirtazapin e 15 mg dailywill monitor [id number] MARK SCHROEDER AUDI [address] [address] 01/27/2023 14:41:48 01/29/2023 16:16:55 Vascular dementia 866795781 F01.50 expect declinewil l monitor and support as needed Atrial fibrillation 4943 6004 I48.0 apixaban 2.5 mg biddiltiaz em ER 120 mg daily for rate controlwil l monitor Pain of ri ght shoulder joint 8846151071 8493169 M25.511 diclofenac gel bidAPAP 650 mg q6h prnPT/OT prnawait ortho consultati onwill monitor Benign pro static hyperplasia 658346327 N40.1 Ornelas catheterf/ u urologyfin asteride 5 mg dailytamsu losin 0.8 mg dailywill monitor Gastroesop hageal reflux disease without esophagitis 069342970 K21.9 famotidine 20 mg bidwill monitor Cobalamin deficiency 190 279710 E53.8 B12 1000 mcg dailywill monitor Mixed anxi ety and depressive disorder 296104540 F41.8 mirtazapin e 15 mg dailywill monitor Asthenia 04225075 R53.1 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 Acute urin maciej tract infection 400278533 N30.01 As above. Chronic re tention of urine 310406437 R33.8 Continue chronic ornelas, change every 30 days.F/U with uro prn. Benign pro static hyperplasia with outflow obstruction 730504712 N40.1 As above.Cont inue tamsulosin 0.8 mg qd and finasterid e 5 mg qd.F/U with uro Atrial fibrillation 4943 6004 I48.0 Rate in good control on diltiazem ER 120 mg qdContinue eliquis 2.5 mg BID for AC.Monitor HR and bleeding risk. Pain of ri ght shoulder joint 4703914943 7389249 M25.511 Continue APAP 650 mg q 6 hr prnWill use OT as ableAwaiti ng ortho consultati onMonitor Gastroesop hageal reflux disease without esophagitis 237355866 K21.9 No current sxs.Contin ue famotidine 20 mg BIDMonitor sxs Cobalamin deficiency 190 661312 E53.8 Continue vitamin B12 1000 mcg qdNo recent level, will check with tomorrow's labs, then yearly Mixed anxi ety and depressive disorder 649875132 F41.8 As above. Asthenia 43072255 R53.1 Is deconditio jen from recent illness.Ne eds PT/OT for strengthen ing, balance, gait training, safety and function.C ontinue fall precaution s.Monitor for safety. Dementia 41171190 F02.B3 Likely multifacto rial with vascular and EtOH components .Continues at baselineCo ntinue mirtazapin e 15 mg qdContinue supportive care, expect decline.Vega s guardianMo nitor mood and behaviors. Psych follows. [id number] MARK SCHROEDER NP [address] [address] 03/03/2023 11:23:38 03/05/2023 15:37:10 Sepsis caused by Escherichia coli 538258932 A41.51 To complete course of abx with cefuroxime 500 mg BID until 03/05 (14 day course). Will add probiotic BID for 14 more days. Monitor sxs. Acute urin maciej tract infection 238633613 N30.01 cefuroxime 500 mg bid to ood [facility] care[facility] r for symptoms [id number] MARK SCHROEDER NP [address] [address] 04/14/2023 11:08:09 04/16/2023 08:47:29 Vascular dementia 356811071 F01.50 expect declinewil l monitor and support as needed Atrial fibrillation 4943 6004 I48.0 apixaban 2.5 mg biddiltiaz em ER 120 mg daily for rate controlwil l monitor Pain of ri ght shoulder joint [id number] 0164218 M25.511 diclofenac gel bidAPAP 650 mg q6h prnPT/OT prnawait ortho consultati onwill monitor Benign pro static hyperplasia 058275717 N40.1 Ornelas catheterf/ u urologyfin asteride 5 mg dailytamsu losin 0.8 mg dailywill monitor Gastroesop hageal reflux disease without esophagitis 292581152 K21.9 famotidine 20 mg bidwill monitor Cobalamin deficiency 190 931548 E53.8 B12 1000 mcg dailywill monitor Mixed anxi ety and depressive disorder 224427142 F41.8 mirtazapin e 15 mg dailywill monitor Asthenia 26739330 R53.1 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 Benign pro static hyperplasia with outflow obstruction 458504512 N40.1 As above.Cont inue tamsulosin 0.8 mg qd and finasterid e 5 mg qd.F/U with uro Dementia 66338173 F02.B3 Continues at baselineCo ntinue mirtazapin e 15 mg qdContinue supportive care, expect decline.Vega s guardian, needs updated guardiansh ip papers scanned into [facility].Monito r mood and behaviors. Psych follows. Mixed anxi ety and depressive disorder 805704146 F41.8 As above. Atrial fibrillation 4943 6004 I48.0 Rate remains in good control on diltiazem ER 120 mg qdContinue eliquis 2.5 mg BID for AC.Monitor HR and bleeding risk. Gastroesop hageal reflux disease without esophagitis 252309464 K21.9 No current sxs.Contin ue famotidine 20 mg BIDMonitor sxs [id number] MARK SCHROEDER NP [address] [place] [address] 06/16/2023 14:19:39 06/23/2023 18:09:18 Acute urinary tract infection 025884069 N30.01 levofloxin 750 mg qod x6 dosesgood ornelas caremonito r for symptoms Vascular dementia 120424 004 F01.50 expect declinewil l monitor and support as needed Atrial fibrillation 4943 6004 I48.0 apixaban 2.5 mg biddiltiaz em ER 120 mg daily for rate controlwil l monitor Pain of ri ght shoulder joint [id number] 9724633 M25.511 diclofenac gel bidAPAP 650 mg q6h prnPT/OT prnawait ortho consultati onwill monitor Benign pro static hyperplasia 051233518 N40.1 Ornelas catheterf/ u urologyfin asteride 5 mg dailytamsu losin 0.8 mg dailywill monitor Gastroesop hageal reflux disease without esophagitis 635326661 K21.9 famotidine 20 mg bidwill monitor Cobalamin deficiency 190 022344 E53.8 B12 1000 mcg dailywill monitor 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 mirtazapin e 15 mg dailywill monitor Asthenia 57376302 R53.1 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 monitor and support as needed [place] 126995443 R29.6 PT OT eval and treatfall precaution sfrequent safety checks [id number] MARK SCHROEDER NP [address] [address] 06/21/2023 13:07:48 06/23/2023 18:53:43 Acute urinary tract infection 439040102 N30.01 levofloxin 750 mg qod x6 dosesgood ornelas caremonito r for symptoms Vascular dementia 623821 004 F01.50 expect declinewil l monitor and support as needed [place] 641670581 R29.6 PT OT eval and treatfall precaution sfrequent safety checks [id number] MARK SCHROEDER NP [address] [address] 06/30/2023 10:16:19 07/13/2023 09:45:01 Acute urinary tract infection 106111610 N30.01 levofloxin 750 mg qod x6 doses-comp letedgood ornelas caremonito r for symptoms Benign pro static hyperplasia 900301048 N40.1 Ornelas catheterf/ u urologyfin asteride 5 mg dailytamsu losin 0.8 mg dailywill monitor [id number] Gail Jose Ramon Pennington [address] [address] 08/20/2023 10:35:03 08/31/2023 10:01:42 Benign prostatic hyperplasia 849714364 N40.1 continue with chronic ornelas, change monthly and prncontinu e finasterid e 5mg dailyfollo wed by urology Acute urin maciej tract infection 764221082 N30.01 last UTI in hospital 06/13/23 tx with levoquinco ntinue vit c 500mg BID UTI procontinu e D-mannose 1g BID UTI promonitor , change ornelas monthly Atrial fibrillation 4943 6004 I48.0 chronic, stable. RCcontinue diltiazem 120mg dailyeliqu is 2.5mg BID Cobalamin deficiency 190 591972 E53.8 chronic stablecont inue supplement [id number] RASHAWN WAGGONER [address] [address] 09/13/2023 11:11:07 09/15/2023 09:51:03 Herpes zoster 5640928 B02.9 valacyclov ir 1000 mg q12 for 5 daysgabape ntin 300 mg q 6 prn for 5 daysbenadr yl 25 mg q6 hours for pruritis prntylenol 650 mg prn for discomfort .monitor for worsening sx , nursing to update provider with changesmon itor VS qshiftplac e on precaution s per facility protocol.p t to wear loose clothing [id number] RASHAWN WAGGONER [address] [address] 09/27/2023 12:16:45 09/30/2023 12:31:03 Acute urinary tract infection 899114686 N30.01 with acute encephalop athytx with IV linezolid d/t renal function and ceftriaxon edischarge d to facility on Cefuroxime 500 MG BID until 4/1Linezol id 600 MG BID until 10/03 Traumatic hematuria 9556 7008 R31.9 tx with [facility]; now resolved Herpes zoster 4901264 B0 2.9 dx with shinglesva lacyclovir 1000 mg q12 for 5 daysgabape ntin 300 mg q 6 prn for 5 daysbenadr yl 25 mg q6 hours for pruritis prntylenol 650 mg prn for discomfort .monitor for worsening sx , nursing to update provider with changesmon itor VS qshiftplac e on precaution s per facility protocol. 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 PILL MACHINE OPERATOR [address] [address] 09/30/2023 09:22:37 10/05/2023 11:35:15 Acute urinary tract infection 138737113 N30.01 with acute encephalop athytx with IV linezolid d/t renal function and ceftriaxon edischarge d to facility on Cefuroxime 500 MG BID until inezol id 600 MG BID until 10/03 Herpes zoster 3475316 B0 2.9 dx with shinglesva lacyclovir 1000 mg q12 for 5 days-compl etedgabape ntin 300 mg q 6 prn for 5 days -completed benadryl 25 mg q6 hours for pruritis prntylenol 650 mg prn for discomfort .monitor for worsening sx , nursing to update provider with changesmon itor VS qshiftplac e on precaution s per facility protocol. Essential hypertension 27941304 I10 diltiazem 120 mg dailymonit or BP Benign pro static hyperplasia 051163441 N40.1 chronic ornelas catheterco ntinue finasterid e and flomax Atrial fibrillation 4943 6004 I48.0 continue eliquiscon tinue cardizemmo nitor HR Nutritional disorder 249 2008 E44.0 underweigh t 15.7nutrit ional supplement s TID with mealsmonit or monthly weights [id number] RASHAWN WAGGONER [facility] [address] [place] [address] 10/07/2023 10:51:23 10/11/2023 14:34:12 Acute urinary tract infection 850269853 N30.01 abx completed 10/04/23 Herpes zoster 0664190 B0 2.9 dx with shinglesan tiviral completed. Essential hypertension 38732103 I10 diltiazem 120 mg dailymonit or BP Benign pro static hyperplasia 527617115 N40.1 chronic ornelas catheterco ntinue finasterid e and flomax Atrial fibrillation 4943 6004 I48.0 continue eliquiscon tinue cardizemmo nitor HR Nutritional disorder 249 2009 E44.0 will order weight time 3 days at 6am for accuracy.u nderweight 15.7nutrit ional supplement s TID with mealsmonit or monthly weights [id number] RASHAWN WAGGONER [address] [address] 10/12/2023 08:24:59 10/25/2023 13:43:58 Acute urinary tract infection 404608578 N30.01 abx completed 10/04/23 Herpes zoster 2815663 B0 2.9 rash resolving, no open areasblist er healed, skin redness continues. antiviral completed. Essential hypertension 19982516 I10 diltiazem 120 mg dailymonit or BP Benign pro static hyperplasia 782831949 N40.1 chronic ornelas catheterco ntinue finasterid e and flomax Nutritional disorder 249 2009 E44.0 appetite wax and wanesnoted with> than 10 lbs weight lossnursin g to encourage supplement al shakes .underweig ht 15.7nutrit ional supplement s TID with mealsmonit or monthly weights [id number] RASHAWN WAGGONER [address] [address] 10/19/2023 10:54:51 10/26/2023 11:03:11 Acute urinary tract infection 827357479 N30.01 resolved Herpes zoster 8879959 B0 2.9 resolved Essential hypertension 32197400 I10 diltiazem 120 mg dailymonit or BP Benign pro static hyperplasia 665268939 N40.1 chronic ornelas catheterco ntinue finasterid e and flomax Nutritional disorder 249 2009 E44.0 appetite wax and wanesbette r today, noted eating breakfast. noted with> than 10 lbs weight lossnursin g to encourage supplement al shakes .underweig ht 15.7nutrit ional supplement s TID with mealsmonit or monthly weights [id number] Estefanía Witt MD [address] [address] 10/22/2023 18:41:41 12/13/2023 13:58:00 Adult failure to thrive syndrome 601186086 R62.7 With marked wt. loss.Will add ensure/reyna st 8 oz BID and get mortgage protection specialist consult.Al ready on mirtazapin e 15 mg qd.Monitor wts Dementia 11805236 F02.B3 Continues at baselineCo ntinue mirtazapin e 15 mg qdContinue supportive care, expect decline.Vega charisse guardian.M onitor mood and behaviors. Psych follows. Chronic re tention of urine 140651307 R33.8 No recent issuesCont inue chronic ornelas, change every 30 days.F/U with uro prn. Benign pro static hyperplasia with outflow obstruction 796063770 N40.1 As above.Cont inue tamsulosin 0.8 mg qd and finasterid e 5 mg qd.F/U with uro Mixed anxi ety and depressive disorder 870933134 F41.8 As above. Atrial fibrillation 4943 6004 I48.0 Rate remains in good control on diltiazem ER 120 mg qdContinue eliquis 2.5 mg BID for AC.Monitor HR and bleeding risk. Gastroesop hageal reflux disease without esophagitis 986573427 K21.9 No current sxs.Contin ue famotidine 20 mg BIDMonitor sxs [id number] [facility]WN [facility]ER [facility] [address] [place] [address] 10/27/2023 09:18:00 11/02/2023 14:04:27 Essential hypertension 19710853 I10 diltiazem 120 mg dailymonit or BP Benign pro static hyperplasia 228611458 N40.1 chronic ornelas catheterco ntinue finasterid e and flomax Nutritional disorder 249 2008 E44.0 appetite wax and wanesnoted with> than 10 lbs weight lossnursin g to encourage supplement al shakes .underweig ht 15.7nutrit ional supplement s TID with mealsmonit or monthly weights Urinary tr act infectious disease 32039723 N39.0 Started on Methenamin e Hippurate 1 GM for preventati ve measures. [id number] RASHAWN WAGGONER [facility] [address] [place] [address] 11/04/2023 09:11:34 11/09/2023 10:00:16 Essential hypertension 19263482 I10 diltiazem 120 mg dailymonit or BP Benign pro static hyperplasia 826973477 N40.1 chronic ornelas catheterco ntinue finasterid e and flomax Nutritional disorder 249 2008 E44.0 appetite wax and wanesnoted with> than 10 lbs weight lossnursin g to encourage supplement al shakes .underweig ht 15.7nutrit ional supplement s TID with mealsmonit or monthly weights Urinary tr act infectious disease 39189012 N39.0 Started on Methenamin e Hippurate 1 GM for preventati ve measures. [id number] RASHAWN WAGGONER [facility] [address] [place] [address] 11/16/2023 08:30:13 11/22/2023 12:12:26 Urinary tract infectious disease 94233417 N39.0 Sepsis secondary to UTI due to chronic indwelling FoleyConti nue oral amoxicilli n and oral fluconazol e (end date both 11/21) for total of 14 day courseChan ge foleys every 3-4 weeks and use catheter secure Acute kidney injury 1466 9001 N17.9 DOUGLAS secondary to ATNresolve d. Blood in urine 06800896 R31.9 baseline he will present with hematuria in ornelas catheter.C hronic Ornelas in place.abril tor Atrial fibrillation 4943 6004 I48.0 continue eliquis 2.5 mg dailyconti nue cardizem- d/c in acute care due to bradycardi a, monitor need to restart.mo nitor HR Dementia 02790310 F02.B3 Continue mirtazapin e 15 mg qd Gastroesop hageal reflux disease without esophagitis 532268247 K21.9 Continue famotidine 20 mg BIDMonitor sxs Cobalamin deficiency 190 165076 E53.8 Ascorbic Acid 500 MG dailyCyano cobalamin 1000 mcg daily Benign pro static hyperplasia 826863977 N40.1 chronic ornelas catheterco ntinue finasterid e 5 mg daily [id number] RASHAWN WAGGONER [facility] [address] [place] [address] 2023 11:24:22 11/26/2023 08:45:18 Urinary tract infectious disease 20401562 N39.0 antibiotic s completed. Sepsis secondary to [...] monitor need to restart.mo nitor HR Dementia 22257045 F02.B3 Continue mirtazapin e 15 mg qd Gastroesop hageal reflux disease without esophagitis 126500627 K21.9 Continue famotidine 20 mg BIDMonitor sxs [id number] RASHAWN WAGGONER [address] [address] 12/02/2023 09:46:58 12/07/2023 11:56:04 Urinary tract infectious disease 85503670 N39.0 antibiotic s completed. Change ornelas every 3-4 weeks and use catheter secure Atrial fibrillation 4943 6004 I48.0 continue eliquis 2.5 mg dailyconti nue cardizem- d/c in acute care due to bradycardi a, monitor need to restart.mo nitor HR 74 0n 12/01- has been stable 70-80s. Dementia 93330321 F02.B3 Continue mirtazapin e 15 mg qd Gastroesop hageal reflux disease without esophagitis 214716178 K21.9 Continue famotidine 20 mg BIDMonitor sxs [id number] NADIRA BROOKS PILL MACHINE OPERATOR [address] [address] 12/06/2023 12:48:19 12/07/2023 12:34:24 Atrial fibrillation 34910270 I48.0 continue eliquis 2.5 mg dailyconti nue cardizem- d/c in acute care due to bradycardi a, monitor need to restart.HR stable. denies any chest pain, SOB or palpitatio ns. Dementia 76332058 F02.B3 Continue mirtazapin e 15 mg qd Urethral u rinary catheter in situ for intermediate use 6906078523 104 Z96.0 prone to frequent UTI; recently completed ABX.Ornelas patent and draining.C hange ornelas every 3-4 weeks and use catheter securenurs ing to do ornelas care twice daily encouraged . [id number] RASHAWN WAGGONER [address] [address] 12/14/2023 10:28:27 12/17/2023 08:36:28 Urinary tract infectious disease 83078936 N39.0 resolved Acute kidney injury 1466 9001 N17.9 DOUGLAS secondary to ATNresolve d. Blood in urine 08992222 R31.9 baseline he will present with hematuria in ornelas catheter.C hronic Ornelas in place.abril tor Atrial fibrillation 4943 6004 I48.0 continue eliquis 2.5 mg daily Dementia 71219369 F02.B3 Continue mirtazapin e 15 mg qd Gastroesop hageal reflux disease without esophagitis 614105227 K21.9 Continue famotidine 20 mg BID Cobalamin deficiency 190 649446 E53.8 Ascorbic Acid 500 MG dailyCyano cobalamin 1000 mcg daily Benign pro static hyperplasia 387191379 N40.1 chronic ornelas catheterco ntinue finasterid e 5 mg daily [id number] RASHAWN WAGGONER [address] [address] 12/28/2023 10:37:21 12/31/2023 14:58:13 Urinary tract infectious disease 07121720 N39.0 Cefuroxime 250 mg BID for 7 dayscontin ue Acidophilu s Oral Capsule daily. Benign pro static hyperplasia 164478030 N40.1 chronic ornelas catheter -patent and draining to gravity today.cont inue finasterid e 5 mg dailynursi ng to provide ornelas care per facility protocol qshift. [id number] RASHAWN WAGGONER [address] [address] 02/08/2024 12:48:44 02/09/2024 14:43:43 Dementia 18209994 F02.B3 noted with an agitation, hitting himself in the head, there is no injury.duncan sing able to redirect patient behavior, although he is redirectab le from self harm he continues to be noted with agitation. nursing reports that patient gets easily agitated with too environmen tabby stimuli.wi ll add trazodone 25 mg q 8 prn for anxiety for 14 days. [id number] RASHAWN WAGGONER [address] [address] 03/07/2024 11:27:24 03/09/2024 14:27:31 Dementia 16116120 F02.B3 with agitation and anxietyrec ently trial on 14 days trazadone with improvemen t with behaviors per nursing.re cently seen by psych with recommenda tions to schedule daily at hswill add trazadone 25 mg at hs and monitor effectiven ess. [id number] RASHAWN WAGGONER [address] [address] 03/13/2024 10:00:17 03/15/2024 10:09:29 Atrial fibrillation 66918392 I48.0 continue eliquis 2.5 mg daily Dementia 57009460 F02.B3 Continue mirtazapin e 15 mg qdrecently trial on 14 days trazadone with improvemen t with behaviors per nursing.no w on trazadone 25 mg at hs for anxiety with agitation Gastroesop hageal reflux disease without esophagitis 078211312 K21.9 Continue famotidine 20 mg BID Cobalamin deficiency 190 881244 E53.8 Ascorbic Acid 500 MG dailyCyano cobalamin 1000 mcg daily Benign pro static hyperplasia 125727879 N40.1 chronic ornelas catheterco ntinue finasterid e 5 mg daily [id number] RASHAWN WAGGONER [address] [address] 03/27/2024 10:56:25 03/28/2024 13:30:57 Atrial fibrillation 64039799 I48.0 continue eliquis 2.5 mg dailyno abn bleeding or bruisingoc c hematuria that resolves with irrigation . Dementia 64552378 F02.B3 Continue mirtazapin e 15 mg qdrecently trial on 14 days trazadone with improvemen t with behaviors per nursing.cn tinue trazadone 25 mg at hs for anxiety with agitation Gastroesop hageal reflux disease without esophagitis 104397370 K21.9 Continue famotidine 20 mg BIDno reported GI upset Cobalamin deficiency 190 137724 E53.8 Ascorbic Acid 500 MG dailyCyano cobalamin 1000 mcg daily Benign pro static hyperplasia 121705581 N40.1 chronic ornelas catheterco ntinue finasterid e 5 mg dailyPatie nt had planned procedure for plan suprapubic ornelas on 03/21- had to be reschedule d due to transporta tion. Adult fail ure to thrive syndrome 904089563 R62.7 02/25/24 ensures increased from BID to TIDof note patient noted with 6 lb weight gaincontin ue ensure/reyna st 8 oz TIDmirtaza pine 15 mg qd.Monitor wts [id number] RASHAWN WAGGONER [address] [address] 03/30/2024 11:03:41 03/31/2024 12:43:23 Benign prostatic hyperplasia 131163570 N40.1 chronic ornelas catheterco ntinue finasterid e 5 mg dailyPatie nt had planned procedure for plan suprapubic ornelas on 03/21- had to be reschedule d due to transporta tion. Retention of urine due to occlusion of Ornelas catheter 201564549 R33.8 see hpiHX of BPH, no coude catheter available to replaced current ornelas, patient previously sent to ED for ornelas replacemen t due to difficult insertion. will send to ED for evaluation [id number] RASHAWN WAGGONER [address] [address] 04/17/2024 11:47:14 04/18/2024 16:02:01 Benign prostatic hyperplasia 097705487 N40.1 now with suprapubic catheter -continue finasterid e 5 mg daily Dementia 35407224 F02.B3 can be impulsive, easily agitatedex pect declineCon tinue mirtazapin e 15 mg qdcontinue trazadone 25 mg at hs for anxiety with agitation Suprapubic urinary catheter in situ 742518383 Z96.0 monitor for sx of site infection update provider with changes.pa tent and drainingap ply abdominal binder to prevent accidental pulling out.change catheter tubing per urology recs. [id number] RASHAWN WAGGONER [facility] [address] [place] [address] 04/20/2024 13:55:50 04/21/2024 11:40:27 Benign prostatic hyperplasia 182165982 N40.1 now with suprapubic catheter -continue finasterid e 5 mg daily Dementia 82909180 F02.B3 can be impulsive, easily agitatedex pect declineCon tinue mirtazapin e 15 mg qdcontinue trazadone 25 mg at hs for anxiety with agitation Suprapubic urinary catheter in situ 998648108 Z96.0 pt incidental ly pulled out stitch, there has been no concerns, site is clean and dry no drainagemo nitor for sx of site infection update provider with changes.pa tent and drainingap ply abdominal binder to prevent accidental pulling out.change catheter tubing per urology recs. [id number] RASHAWN WAGGONER [address] [address] 04/24/2024 08:37:53 04/26/2024 09:17:19 Benign prostatic hyperplasia 902928405 N40.1 now with suprapubic catheter -continue finasterid e 5 mg daily Dementia 70596019 F02.B3 stable today, mood pleasant .can be impulsive, easily agitatedex pect declineCon tinue mirtazapin e 15 mg qdcontinue trazadone 25 mg at hs for anxiety with agitation Suprapubic urinary catheter in situ 255111282 Z96.0 pt incidental ly pulled out stitch, there has been no concerns, site is clean and dry no drainagemo nitor for sx of site infection update provider with changes.pa tent and drainingap ply abdominal binder to prevent accidental pulling out.change catheter tubing per urology recs. [id number] RASHAWN WAGGONER [address] [address] 04/27/2024 11:14:21 05/01/2024 15:09:09 Benign prostatic hyperplasia 623651335 N40.1 now with suprapubic catheter -continue finasterid e 5 mg daily Dementia 53667379 F02.B3 stablecan be impulsive, easily agitatedex pect declineCon tinue mirtazapin e 15 mg qdcontinue trazadone 25 mg at hs for anxiety with agitation Suprapubic urinary catheter in situ 869439523 Z96.0 pt incidental ly pulled out stitch, there has been no concerns, site is clean and dry no drainagemo nitor for sx of site infection update provider with changes.pa tent and drainingap ply abdominal binder to prevent accidental pulling out.change catheter tubing per urology recs. Essential hypertension 33131622 I10 stabledilt iazem 120 mg dailymonit or BP [id number] RASHAWN WAGGONER [address] [address] 05/05/2024 12:40:01 05/08/2024 13:34:52 Benign prostatic hyperplasia 531681655 N40.1 now with suprapubic catheter -continue finasterid e 5 mg daily Dementia 96602770 F02.B3 stablecan be impulsive, easily agitatedex pect declineCon tinue mirtazapin e 15 mg qdcontinue trazadone 25 mg at hs for anxiety with agitation Suprapubic urinary catheter in situ 120613424 Z96.0 pt incidental ly pulled out stitch, there has been no concerns, site is clean and dry no drainagemo nitor for sx of site infection update provider with changes.pa tent and drainingap ply abdominal binder to prevent accidental pulling out.change catheter tubing per urology recs. Essential hypertension 88054673 I10 stabledilt iazem 120 mg dailymonit or BP [id number] RASHAWN WAGGONER [address] [address] 05/15/2024 12:19:47 05/31/2024 12:02:09 Benign prostatic hyperplasia 707703899 N40.1 now with suprapubic catheter -continue finasterid e 5 mg daily Dementia 25469385 F02.B3 stablecan be impulsive, easily agitatedex pect declineCon tinue mirtazapin e 15 mg qdcontinue trazadone 25 mg at hs for anxiety with agitation Suprapubic urinary catheter in situ 454640070 Z96.0 monitor for sx of site infection update provider with changes.pa tent and drainingab dominal binder to prevent accidental pulling out.change catheter tubing per urology recs. Essential hypertension 90297175 I10 stabledilt iazem 120 mg dailymonit or BP [id number] RASHAWN WAGGONER [address] [address] 05/29/2024 11:13:49 05/31/2024 12:05:16 Gastrointestinal hemorrhage 68810758 K92.2 see hpicontinu e sucralfate 1g for 14 days after mealsprilo sec 20 mg daily for 8 weeksconti nue pepcid 20 mg BIDavoid NSAIDavoid lying flat for 1 hour after eating- recommend OOB for meals Aspiration pneumonia 422 884507 J69.0 tx with IV zosyn in acute caredischa rge on augmentin BID for 5 daysavoid lying flat for 1 hour after eating- recommend OOB for meals Acute urin maciej tract infection 087915968 N30.01 Enterococc us faecalis.c ontinue Augmentinh igh risk for recurrent due to s/p ornelas Acute kidney injury 1466 9001 N17.9 Likely from renal hypoperfus ion/hypote nsion. noted with metabolic acidosisHX ATNavoid nephrotoxi c meds Bradycardia 06523898 R00 .1 see hpimonitor HRavoid beta blockers Umair hematuria 32800680 5 R31.0 noted with about 700 cc of dark red, dark cranberry colored urine can not see through in ornelas catheter tubing and bag.he is on eliquis BIDwill send to ED for evaluation due to significan t amount most likely will need irrigation . [id number] RASHAWN WAGGONER [address] [address] [address] 06/05/2024 12:03:56 06/07/2024 11:45:22 Gastrointestinal hemorrhage [id number] K92.2 no reported coffee ground emesis since returning ontinue sucralfate 1g for 14 days after mealsprilo sec 20 mg daily for 8 weeksconti nue pepcid 20 mg BIDavoid NSAIDavoid lying flat for 1 hour after eating- recommend OOB for meals Aspiration pneumonia [id number] J69.0 completed abxavoid lying flat for 1 hour after eating- recommend OOB for meals Acute urin maciej tract infection [id number] N30.01 abx completed Umair hematuria [id number] 5 R31.0 12: pink tingeddisc ussed with nursing to monitor outputcan restart eliquis [id number] RASHAWN WAGGONER [facility] [address] [place] [phone] 5 06/08/2024 08:39:45 06/09/2024 12:00:08 Gastrointestinal hemorrhage 35824070 K92.2 no reported coffee ground emesis since returning ontinue sucralfate 1g for 14 days after mealsprilo sec 20 mg daily for 8 weeksavoid NSAIDavoid lying flat for 1 hour after eating- recommend OOB for meals Umair hematuria 5 R31.0 suprapubic catheter with geovani urine noted todaydiscu ssed with nursing to monitor outputcan restart eliquis Ulcerative esophagitis 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 Rare yeast and pseudohyph ae are present, consistent with Violette speciesnow on fluconazol e 200 mg qd for 14 dayscontin ue PPI and N0Binwv extend carafate 1 gm after meals QD. [id number] RASHAWN WAGGONER [address] [phone] 06/12/2024 10:18:47 06/13/2024 14:16:39 Gastrointestinal hemorrhage 66125825 K92.2 no reported coffee ground emesis since returning ontinue sucralfate 1g for 14 days after mealsprilo sec 20 mg daily for 8 weeksavoid NSAIDavoid lying flat for 1 hour after eating- recommend OOB for mealsmonit or weekly labs for now Umair hematuria 64517886 5 R31.0 suprapubic catheter with geovani urine noted todaydiscu ssed with nursing to monitor outputcont inue eliquis Ulcerative esophagitis 621005395 K22.10 esophagus biopsy resulted 06/06 showed Ulcerative esophagiti s. Rare yeast and pseudohyph ae are present, consistent with Violette speciesnow on fluconazol e 200 mg qd for 14 dayscontin ue PPIwill extend carafate 1 gm after meals QD. [id number] RASHAWN WAGGONER [address] [phone] 06/15/2024 08:20:07 06/16/2024 13:24:29 Gastrointestinal hemorrhage 78064862 K92.2 no reported coffee ground emesis since returning ontinue sucralfate prilosec 20 mg daily for 8 weeksavoid NSAIDavoid lying flat for 1 hour after eating- recommend OOB for mealsmonit or weekly labs for now Umair hematuria 22949974 5 R31.0 suprapubic catheter with geovani urine noted todaydiscu ssed with nursing to monitor outputcont inue eliquis Ulcerative esophagitis 254853900 K22.10 esophagus biopsy resulted 06/06 showed Ulcerative esophagiti s. Rare yeast and pseudohyph ae are present, consistent with Violette speciesnow on fluconazol e 200 mg qd for 14 days until 06/21conti nue PPIwill extend carafate 1 gm after meals QD. Urethral u rinary catheter in situ for intermediate use [id number] 104 Z96.0 prone to frequent UTI; recently completed ABX.Ornelas patent and draining.C lestere ornelas every 3-4 weeks and use catheter securenurs ing to do ornelas care twice daily encouraged . [id number] RASHAWN WAGGONER [address] [address] 06/19/2024 10:41:37 06/20/2024 12:04:02 Ulcerative esophagitis 373098064 K22.10 esophagus biopsy resulted 06/06 showed Ulcerative esophagiti s. Rare yeast and pseudohyph ae are present, consistent with Violette speciesnow on fluconazol e 200 mg qd for 14 days until 06/21conti nue PPIwill extend carafate 1 gm after meals QD. 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 [id number] RASHAWN WAGGONER [address] [facility] [place]EN MARTINEZ [phone] 06/26/2024 10:30:09 06/27/2024 09:52:09 Ulcerative esophagitis 858484044 K22.10 esophagus biopsy resulted 06/06 showed Ulcerative esophagiti s. Rare yeast and pseudohyph ae are present, consistent with Violette speciesnow on completed fluconazol e on 07/01will extend carafate 1 gm after meals QD. Gastrointe stinal hemorrhage 81037840 K92.2 no reported coffee ground emesis since returning ontinue sucralfate prilosec 20 mg daily for 8 weeksavoid NSAIDavoid lying flat for 1 hour after eating- recommend OOB for mealsmonit or weekly labs for now Urethral u rinary catheter in situ for intermediate use [id number] 104 Z96.0 prone to frequent UTI; recently completed ABX.Ornelas patent and draining.C hange ornelas every 3-4 weeks and use catheter securenurs ing to do ornelas care twice daily encouraged . Atrial fibrillation 4943 6004 I48.0 continue eliquis 2.5 mg daily- monitor for hematuriao cc hematuria that resolves with irrigation . Benign pro static hyperplasia 595586821 N40.1 with suprapubic catheter -continue finasterid e 5 mg daily Dementia 75542442 F02.B3 stable at his baselineca n be impulsive, easily agitatedex pect declineCon tinue mirtazapin e 15 mg qdcontinue trazadone 25 mg at hs for anxiety with agitation Essential hypertension 49490033 I10 stabledilt iazem 120 mg dailymonit or BP Health Concerns Section Related Observation LastModified by Organization Detai ls LastModified Time None Recorded Concern Status LastModified by Organization Details LastModified Time None Recorded Advance Directives Directive N: assumed full code Payers Encounter Date Sequence Insurance Name Policy Number Policy [place] Covered Member ID [place] Member ID Guarantor Name 06/08/2024 1 [place] [employer] Joel Acevedo [id number] Joel Acevedo 06/08/2024 2 [place] Acevedo [id number] Joel Acevedo 06/12/2024 1 [place] [employer] Joel Acevedo [id number] Joel Merchantvais 06/12/2024 2 [place] Joel Acevedo [id number] Joel Acevedo 06/15/2024 1 [place] [employer] Joel Acevedo [id number] Joel Merchantvais 06/15/2024 2 [place] Joel Acevedo [id number] Joel Acevedo 06/19/2024 1 [place] [employer] Joel Acevedo [id number] Joel Acevedo 06/19/2024 2 [place] [id number] Joel Acevedo 06/26/2024 1 [place] [employer] Joel Acevedo [id number] Joel Acevedo 06/26/2024 2 [place] [facility] Joel Acevedo [id number] Joel Acevedo Notes Date Note Type Note [...] esophagus infected with yeast. RASHAWN WAGGONER [address] [facility], [address], [place], [address], [facility] 06/08/2024 15:57:22 06/12/2024 text/html This is [...] no acute nursing concerns. RASHAWN WAGGONER [address] [facility], [address], [place], [address], [employer] 06/12/2024 11:51:35 06/15/2024 text/html This is a [...] he is currently at his baseline in [facility], there are no acute nursing concerns. Nurse notes reviewed, no acute nursing concerns. 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 He has been at his baseline in [facility]. He ornelas has been patent and without any hematuria.He denies any throat discomfort, nursing reports that he is eating ok, he continues on antifungal, compliant with meds. Nurse notes reviewed, no acute nursing concerns. 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 He has been at his baseline in [facility]. There are no acute nursing concerns. He is dependent on nursing staff to meet health care needs. He prefers to stay in his room, anxiety increases when he is out of his room. NN reviewed. RASHAWN WAGGONER [address] , [address], [place], [address], [employer] 06/26/2024 13:20:51
[2024-09-04 06:45] LABS: Basophils Absolute Auto 0.1 X10*3/uL (0.0-0.2); Basophils Percent Auto 0.4 % (0-2); Eosinophils Absolute Auto 0.2 X10*3/uL (0.0-0.4); Eosinophils Percent Auto 1.4 % (0-4); Hematocrit 34.7 % (42.0-52.0); Hemoglobin 11.2 g/dl (14.0-18.0); Imm Gran Abs Auto 0.03 X10*3/uL (0.00-0.03); Imm Gran Pct Auto 0.3 % (0.0-0.4); Lymphocytes Absolute Auto 1.5 X10*3/uL (1.2-4.9); Lymphocytes Percent Auto 13.4 % (20-40); Mean Corpuscular HGB Conc 32.3 g/dl (31.0-36.0); Mean Platelet Volume 10.1 fL (9.4-12.4); Monocytes Absolute Auto 1.2 X10*3/uL (0.1-1.2); Monocytes Percent Auto 10.1 % (2-11); Neutrophils Absolute Auto 8.5 x10*3/uL (2.0-8.3); Neutrophils Percent Auto 74.4 % (45-73); Platelet Count 258 X10*3/uL (160-400); Red Blood Count 3.73 X10*6/uL (4.60-5.80); Red Cell Distribution Width 12.7 % (11.0-16.0); White Blood Count 11.5 X10*3/uL (4.8-10.8)
[2024-09-04 07:32] LABS: Anion Gap 11 (12-20); Blood Urea Nitrogen 22 mg/dL (9-16); Calcium 8.8 mg/dL (8.4-10.2); Carbon Dioxide 26 mmol/L (22-29); Chloride 109 mmol/L (96-108); Estimated Glomerular Filt Rate 57; Glucose Random 84 mg/dL (60-115); Potassium 3.9 mmol/L (3.3-5.1); Sodium 142 mmol/L (135-145)
== END 2024-09-04 06:20 | disposition home or self-care (01) ==
LOC: HO.MMNH3L 06:19
PROVIDERS: Visit Provider Family Medicine
DX: Z13.89 Encounter for screening for other disorder (principal)
CPT/HCPCS: 36415; 80048; 85025

== ENCOUNTER 2024-10-09 05:43 | Outpatient (REF) | payer MEDICARE, MEDICAID, SELFPAY ==
[2024-10-09 05:43] LABS: MANUAL DIFF FLAG NO
--- OUTSIDE RECORDS SUMMARY | 2024-10-09 05:46 | XMS_ITS | Data Portability ---
Author Organization [facility], Main Office Address [address] [facility] [address] [address] [place] [address] Care Team Providers Care Instructional Support Specialist Name Role Phone STANISLAV CHEN 3RD FLOOR OTHER Assessment Encounter Date Assessment Date Assessment LastModified by Organization Details LastModified Time 06/15/2024 06/15/2024 labs 05/31: Na 145-K 3.5-Bun [...] hct 33.4-plt 272 Not available 06/26/2024 13:15:00 10/01/2024 10/01/2024 labs 05/31: Na 145-K 3.5-Bun 13-Cr 1.3-wbc 6.6-hgb 11.0-hct 34-plt 303 Labs 06/05: Na 138-K 3.9-Bun 13-Cr 1.0-wbc 5.4-hgb 10.9- hct 33.4-plt 272 Not available 10/02/2024 08:37:56 Plan of Treatment Reminders Order Date Submit [...] Organization Details Recorded Time Benign prostatic hyperplasia 728319151 Active 2021 MARK SCHROEDER NP [address] [facility], [address], [place], [address], [facility] [employer] [facility] 2 12:42:30 Vascular dementia 693863042 Active 2021 MARK SCHROEDER NP [address], [address], [place], [address], [facility] [employer] [facility] 2 12:42:36 Constipatio n 73398451 Active 2021 MARK SCHROEDER NP [address] [facility] [address], [address], [place], [address], [employer] 2 12:42:45 Atrial fibrillatio n 85159769 Active 2021 MARK SCHROEDER NP [address] [facility], [address], [place], [address], [facility] [employer] [facility] 2 12:42:54 Falls 438843406 Active 2021 MARK SCHROEDER NP [address], [place], [address], [facility] [employer] [facility] 2 12:44:39 Gastroesoph ageal reflux disease without esophagitis 182263287 Active 2021 MARK SCHROEDER NP [address] [facility] [address] [facility], [address], [place], [address], [facility] 2 12:57:57 Acute urinary tract infection 511026161 Active 2021 MARK SCHROEDER NP [address], [address], [place], [address], [facility] [employer] [facility] 2 14:13:29 Asthenia 92263666 Active 2021 Estefanía Witt MD [address], [address], [place], [address], [facility] 2 16:45:01 Fever 991534528 Active 2021 MARK SCHROEDER NP [address], [address], [place], [address], [facility] 2 10:07:39 COVID-19 522242238 Active 2021 MARK SCHROEDER NP [address], [address], [place], [address], [facility] 2 11:15:20 Bacteremia 6670562 Active 2022 MARK SCHROEDER NP [address], [address], [place], [address], [facility] 3 10:08:56 Pain of right shoulder joint 4683941935871 9100 Active 2022 MARK SCHROEDER NP [address], [address], [place], [address], [facility] 3 12:54:04 Cobalamin deficiency 187865388 Active 2022 Estefanía Witt MD [address], [address], [place], [address], [facility] 3 13:34:49 Sepsis caused by Escherichia coli 077180238 Active 2022 MARK SCHROEDER NP [address], [address], [place], [address], [facility] 3 11:28:51 Dementia 50728340 Active 2022 Estefanía Witt MD [address], [address], [place], [address], [place] [facility] 3 15:58:50 Urinary tract infectious disease 73517115 Active 2023 RASHAWN WAGGONER [address], [address], [place], [address], [facility] [employer] [facility] 4 20:24:56 Traumatic hematuria 25999266 Active 2023 JOHN WAGGONERP [address], [address], [place], [address], [facility] [employer] [facility] 4 20:56:51 Essential hypertensio n 56080423 Active 2023 NADIRA BROOKS, VP [employer] [address], [address], [place], [address], [facility] [employer] [facility] 4 21:01:00 Nutritional disorder 6499343 Active 2023 RASHAWN WAGGONER [address], [address], [place], [address], [facility] 4 21:02:35 Adult failure to thrive syndrome 046880641 Active 2023 Estefanía Witt MD [address], [address], [place], [address], [facility] 4 21:38:36 Bradycardia 80485972 Active 2023 RASHAWN WAGGONER [address], [address], [place], [address], [facility] 4 14:06:56 Acute kidney injury 89450963 Active 2023 RASHAWN WAGGONER [address], [address], [place], [address], [facility] 4 14:06:59 Aspiration pneumonia 164921346 Active 2023 RASHAWN WAGGONER [address], [address], [place], [address], [facility] 4 14:07:05 Gastrointes tinal hemorrhage 90336054 Active 2023 RASHAWN WAGGONER [address], [address], [place], [address], [facility] 4 14:07:15 Ulcerative esophagitis 364680949 Active 2023 NADIRARASHAWN DAILEY [address] [facility] [address] [facility], [address], [place], [address], [facility] 4 15:56:54 Umair hematuria 225060927 Active 2023 RASHAWN WAGGONER [address] [facility] [address], [address], [place], [address], [facility] 4 15:56:56 Recurrent urinary tract infection 613233245 Active 2024 Rajesh Son MD [address] [facility] [address], [address], [place], [address], [facility] 5 11:53:04 Problem Notes None recorded. Medical Equipment None Reported. Allergies No known drug allergies Medications Not known to be on any medication Vitals Date Recorded Body height Provider Name an d Address Organization Details Last Updated DateTime 06/15/2024 157.48 cm RASHAWN WAGGONER [address] [facility] [address] [facility], [address], [place], [address], [facility] 06/15/2024 09:44:54 Date Recorded Body height Provider Name an d Address Organization Details Last Updated DateTime 06/26/2024 157.48 cm RASHAWN WAGGONER [address] [facility] [address], [address], [place], [address], [facility] 06/26/2024 13:14:24 Date Recorded Body height Heart rate Respiratory rate Body temperature Oxygen saturation Oxygen saturation in Arterial blood by Pulse oximetry Systolic blood pressure Diastolic blood pressure Provider Name and Address Organization Details Last Updated DateTime 5 157.48 cm 57 /min 18 /min 97.3 [degF] 95 % 95 % 114 mm[Hg] 72 mm[Hg] RASHAWN WAGGONER [address] [facility] [address], [address], [place], [address], [facility] 5 08:46:05 Date Recorded Body height Systolic blood pressure Diastolic blood pressure Provider Name and Address Organization Details Last Updated DateTime 10/04/2024 157.48 cm 113 mm[Hg] 69 mm[Hg] Rajesh Son MD [address], [address], [place], [address], [facility] 10/04/2024 11:49:04 Social History Question Answer Notes LastModified by Organizat ion Details LastModified Time Tobacco Smoking Status Never Smoker Estefanía Witt MD [address], [address], [place], [address], [facility] 01/20/2022 16:47:58 Do You Have An [...] not available 01/16/2022 Where Do You Live? [facility] Information not available 06/11/2023 Legal Guardian? Yes Informati on not available 01/20/2022 Do You Have A Medical Power Of Sales Service Promoter? Yes Guardian, Alecia Isabel Information not available [...] 30 mcg/0.3 mL dose 05/14/2021 completed Soumya yañez [facility] 04/17/2022 15:49:57 COVID-19, mRNA, LNP-S, PF, 30 mcg/0.3 mL dose 11/21/2020 completed Soumya yañez [facility] 04/17/2022 15:50:05 COVID-19, mRNA, LNP-S, PF, 30 mcg/0.3 mL dose 11/04/2021 completed Soumya Lawler [facility] 04/17/2022 15:50:17 COVID-19, mRNA, LNP-S, PF, 30 mcg/0.3 mL dose 04/16/2022 completed Soumya Lawler [facility] 04/17/2022 15:50:25 Influenza, adjuvanted, quadrivalent, PF 05/18/2022 [facility] 10:59:51 Influenza, adjuvanted, quadrivalent, PF 02/10/2023 completed Netta Matthew [facility] 07/22/2023 11:00:07 Past Encounters Encounter ID Performer Location Encounter Start Date Encounter Closed Date Diagnosis/Indication Diagnosis SNOMED-CT Code Diagnosis ICD10 Code Diagnosis Note [id number] AUDI CAPONE [address] [place] [address] 01/16/2022 09:17:04 01/20/2022 14:19:48 Vascular dementia 368420428 F01.50 remeron 15 mg hspsych prnchart and monitor any changes in mood or behaviors Atrial fibrillation 4943 6009 I48.91 cardizem 120 mg dailyeliqu is 5 mg bidmonitor heart rate Benign pro static hyperplasia 585398971 N40.1 ornelas cathflomax 0.8 mg dailyfinas teride 5 mg daily Gastroesop hageal reflux disease without esophagitis 415164195 K21.9 pepcid 20 mg daily Constipation 55727065 K5 9.00 senna plus 2 tabs bid [place] 816207290 R29.6 PT OT eval and treatfall precaution sfrequent safety checks [id number] MARK SCHROEDER NP [address] [address] 01/19/2022 14:12:01 01/23/2022 17:01:11 Acute urinary tract infection 041885066 N39.0 cephalexin 500 mg qid x10 daysmonito r for symptoms Benign pro static hyperplasia 400778934 N40.1 ornelas cathflomax 0.8 mg dailyfinas teride 5 mg daily [id number] Estefanía Witt MD [address] [address] 01/20/2022 11:55:23 01/28/2022 16:12:54 Acute urinary tract infection 019734094 N30.01 U/A reportedly + in ED (report not available. Continue cephalexin 500 mg QID x10 days (pending cx)Will get copies of U/A and cx from [facility].Monito r for sxs. Benign pro static hyperplasia 414594828 N40.1 Continue ornelas cathContin ue tamsulosin 0.8 mg qd and finasterid e 5 mg qd.Getting f/u appt with uro. Vascular dementia 551955 004 F01.50 Suspect some element of EtOHic [...] risk. Gastroesop hageal reflux disease without esophagitis 766999467 K21.9 No current sxs.Contin ue famotidine 20 mg qd. Constipation 54873346 K5 9.09 Continue senna plus 2 tabs BID.Monito r bowel function. Falls 142144464 R29.6 As above. Umair hematuria 22207783 5 R31.0 Unclear if from UTI vs. traumatic, vs combinatio n of the 2.Clear now.Monito r Asthenia 59618352 R53.1 Very deconditio jen.Needs PT/OT for strengthen ing, balance, gait training, safety and function.C ontinue fall precaution s.Monitor for safety. [id number] MARK SCHROEDER AUDI [address] [address] 01/22/2022 12:51:54 01/28/2022 19:53:28 Acute urinary tract infection 862070175 N30.01 recoveredc ephalexin 500 mg qid x10 daysmonito r for symptoms Benign pro static hyperplasia 474887097 N40.1 ornelas cathflomax 0.8 mg dailyfinas teride 5 mg daily Asthenia 79273525 R53.1 PT OT eval and treatfall precaution sfrequent safety checks [id number] MARK SCHROEDER AUDI [address] [address] 01/26/2022 13:15:39 01/29/2022 09:29:27 Acute urinary tract infection 202236299 N30.01 macobid 100mg bid to 01/29monito r for symptoms Benign pro static hyperplasia 220378986 N40.1 ornelas cathflomax 0.8 mg dailyfinas teride 5 mg dailyurolo gy consult [id number] MARK SCHROEDER AUDI [address] [address] 01/30/2022 12:08:30 02/13/2022 16:22:20 Acute urinary tract infection 419085708 N30.01 macobid 100mg bid to 01/29monito r for symptoms Benign pro static hyperplasia 133592388 N40.1 ornelas cathflomax 0.8 mg dailyfinas teride 5 mg dailyurolo gy consult Vascular dementia 096603 004 F01.50 remeron 15 mg hspsych prnchart and monitor any changes in mood or behaviors [id number] MARK SCHROEDER AUDI [address] [address] 02/04/2022 12:45:15 02/16/2022 20:39:21 Benign prostatic hyperplasia 225353503 N40.1 ornelas cathflomax 0.8 mg dailyfinas teride 5 mg dailyurolo gy consult Vascular dementia 514615 004 F01.50 remeron 15 mg hspsych prnchart and monitor any changes in mood or behaviors [id number] MARK SCHROEDER AUDI [address] [address] 02/11/2022 12:58:05 02/17/2022 16:07:34 Benign prostatic hyperplasia 325608679 N40.1 ornelas cathflomax 0.8 mg dailyfinas teride 5 mg dailyurolo gy consult Vascular dementia 763384 004 F01.50 remeron 15 mg hspsych prnchart and monitor any changes in mood or behaviors Atrial fibrillation 4943 6004 I48.91 cardizem 120 mg dailyeliqu is 5 mg bidmonitor heart rate Gastroesop hageal reflux disease without esophagitis 780118207 K21.9 pepcid 20 mg daily Constipation 61154605 K5 9.00 senna plus 2 tabs bid [place] 068849774 R29.6 PT OT eval and treatfall precaution sfrequent safety checks [id number] MARK AUDI SCHROEDER [address] [address] 02/18/2022 11:43:57 02/26/2022 11:37:51 Benign prostatic hyperplasia 862919681 N40.1 ornelas cath-will be chronic due to failed voiding trialfloma x 0.8 mg dailyfinas teride 5 mg dailyurolo gy consult Vascular dementia 592514 004 F01.50 remeron 15 mg hspsych prnchart and monitor any changes in mood or behaviors Asthenia 29898941 R53.1 PT OT eval and treatfall precaution sfrequent safety checks [id number] MARK SCHROEDER AUDI [address] [address] 02/26/2022 12:48:09 03/04/2022 15:36:11 Vascular dementia 419100694 F01.50 remeron 15 mg hspsych prnchart and monitor any changes in mood or behaviors Benign pro static hyperplasia 611616088 N40.1 ornelas cath-will be chronic due to failed voiding trialfloma x 0.8 mg dailyfinas teride 5 mg dailyurolo gy consult [id number] Patsy Waite MD [address] [address] 03/13/2022 08:12:36 03/17/2022 14:45:27 Asthenia 17829736 R53.1 PT/OT/EDGE BRUSHER prnwill monitor and support as needed Vascular dementia 702783 004 F01.50 expect declinewil l monitor and support as needed Gastroesop hageal reflux disease without esophagitis 374294989 K21.9 famotidine 20 mg bidwill monitor Benign pro static hyperplasia 329570325 N40.1 Ornelas catheterfu urologyfin asteride 5 mg dailytamsu losin 0.8 mg dailywill monitor Atrial fibrillation 4943 6004 I48.0 apixaban 5 mg biddiltiaz em ER 120 mg daily for rate controlwil l monitor 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8 mg dailywill monitor Atrial fibrillation 4943 6004 I48.0 apixaban 5 mg biddiltiaz em ER 120 mg daily for rate controlwil l monitor Mixed anxi ety and depressive disorder 634473541 F41.8 mirtazapin e 15 mg dailywill monitor Cobalamin deficiency 190 618630 E53.8 B12 1000 mcg dailywill monitor [id number] MARK SCHROEDER NP [address] [address] 04/17/2022 10:06:54 04/21/2022 15:17:37 Fever 466175839 R50.9 ua, covid swab negative, cbc, cmp, blood culturemon itor for response to tylenol [id number] Patsy Waite MD [facility] [place] [address] 06/12/2022 06:14:20 06/16/2022 15:35:15 Vascular dementia 274046277 F01.50 expect declinewil l monitor and support as needed Benign pro static hyperplasia 216861122 N40.1 Ornelas catheterfu urologyfin asteride 5 mg dailytamsu losin 0.8 mg dailywill monitor Atrial fibrillation 4943 6004 I48.0 apixaban 2.5 mg biddiltiaz em ER 120 mg daily for rate controlwil l monitor Cobalamin deficiency 190 398822 E53.8 B12 1000 mcg dailywill monitor Mixed anxi ety and depressive disorder 109189859 F41.8 mirtazapin e 15 mg dailywill monitor [id number] MARK SCH[facility]EDER [facility] [address] [place] [address] [place] [address] 06/29/2022 10:38:59 07/10/2022 13:14:29 COVID-19 759142816 U07.1 06/26 covid positiveen courage po intakecons ider ivf for anorexiaco nsider paxlovid or decadron for symptomsse nd to ED for decompensa tion [id number] MARK SCHROEDER NP [address] [place] [address] 07/01/2022 11:29:19 07/10/2022 13:46:41 COVID-19 241568183 U07.1 06/26 covid positiveen courage po intakecons ider ivf for anorexiaco nsider paxlovid or decadron for symptomsse nd to ED for decompensa tion [id number] MARK SCHROEDER NP [address] [place] [address] 07/02/2022 12:52:16 07/10/2022 14:18:58 COVID-19 180547538 U07.1 06/26 covid positiveen courage po intakecons ider ivf for anorexiaco nsider paxlovid or decadron for symptomsse nd to ED for decompensa tion [id number] MARK SCHROEDER NP STANISLAV CHEN [address] [place] [address] 07/03/2022 11:19:45 07/10/2022 14:49:59 COVID-19 296582013 U07.1 06/26 covid positiveen courage po intakecons ider ivf for anorexiaco nsider paxlovid or decadron for symptomsse nd to ED for decompensa tion [id number] MARK SCHROEDER NP STANISLAV CHEN [address] [place] [address] 07/06/2022 13:44:51 07/10/2022 15:22:57 COVID-19 576022520 U07.1 06/26 covid positive-a symptomati c, recovered by dateencour age po intakecons ider ivf for anorexiaco nsider paxlovid or decadron for symptomsse nd to ED for decompensa tion MARK SCHROEDER NP STANISLAV CHEN [address] [place] [address] 08/03/2022 12:47:40 08/05/2022 13:54:59 Acute urinary tract infection 772461522 N30.01 cefuroxime 250 mg bid x7 days 2/8monitor for symptoms MARK SCHROEDER [facility] [address] [place] [address] 08/13/2022 08:31:00 08/17/2022 14:54:18 Bacteremia 3738169 R78.81 vanco 1250 mg iv daily to 3/1monitor for symptoms Vascular dementia 354074 004 F01.50 expect declinewil l monitor and support as needed Benign pro static hyperplasia 003053513 N40.1 Ornelas catheterf/ u urologyfin asteride 5 mg dailytamsu losin 0.8 mg dailywill monitor Atrial fibrillation 4943 6004 I48.0 apixaban 2.5 mg biddiltiaz em ER 120 mg daily for rate controlwil l monitor Cobalamin deficiency 190 922968 E53.8 B12 1000 mcg dailywill monitor Mixed anxi ety and depressive disorder 901217248 F41.8 mirtazapin e 15 mg dailywill monitor Gastroesop hageal reflux disease without esophagitis 596076938 K21.9 famotidine 20 mg bidwill monitor [place] 751328481 R29.6 PT OT eval and treatfall precaution sfrequent safety checks [id number] MARK SCHROEDER NP [address] [address] 08/17/2022 15:26:00 08/19/2022 10:15:46 Bacteremia 8632493 R78.81 vanco 1250 mg iv daily to 3/1monitor for symptoms Acute urin maciej tract infection 006456893 N30.01 good ornelas caremonito r for symptoms [id number] MARK SCHROEDER NP [address] [address] 08/19/2022 10:54:09 08/25/2022 10:12:15 Bacteremia 4161139 R78.81 vanco 1250 mg iv daily to 3/1monitor for symptoms Vascular dementia 338727 004 F01.50 expect declinewil l monitor and support as needed Benign pro static hyperplasia 676750900 N40.1 Ornelas catheterf/ u urologyfin asteride 5 mg dailytamsu losin 0.8 mg dailywill monitor Atrial fibrillation 4943 6004 I48.0 apixaban 2.5 mg biddiltiaz em ER 120 mg daily for rate controlwil l monitor Cobalamin deficiency 190 313594 E53.8 B12 1000 mcg dailywill monitor Mixed anxi ety and depressive disorder 752465297 F41.8 mirtazapin e 15 mg dailywill monitor Gastroesop hageal reflux disease without esophagitis 707731428 K21.9 famotidine 20 mg bidwill monitor [place] 557641273 R29.6 PT OT eval and treatfall precaution sfrequent safety checks [id number] MARK SCHROEDER NP [address] [address] 08/27/2022 11:24:35 09/01/2022 07:22:03 Bacteremia 1472192 R78.81 vanco 1250 mg iv daily to 3/1monitor for symptoms Benign pro static hyperplasia 325637447 N40.1 Ornelas catheterf/ u urologyfin asteride 5 mg dailytamsu losin 0.8 mg dailywill monitor [id number] MARK SCHROEDER NP [address] [address] 09/01/2022 12:54:58 09/03/2022 12:37:02 Bacteremia 1934899 R78.81 vanco 1250 mg iv daily to 3/1monitor for symptoms Benign pro static hyperplasia 147654715 N40.1 Ornelas catheterf/ u urologyfin asteride 5 mg dailytamsu losin 0.8 mg dailywill monitor [id number] MARK SCHROEDER NP [address] [address] 09/10/2022 12:26:40 09/16/2022 14:16:46 Pain of right shoulder joint 2153856474 3410943 M25.511 xrays showed rotator cuff injury/tea rortho consult [id number] Patsy Waite MD [address] [address] 10/14/2022 06:36:11 10/20/2022 11:20:30 Vascular dementia 672224597 F01.50 expect declinewil l monitor and support as needed Atrial fibrillation 4943 6004 I48.0 apixaban 2.5 mg biddiltiaz em ER 120 mg daily for rate controlwil l monitor Pain of ri ght shoulder joint 9262482126 0670434 M25.511 diclofenac gel bidAPAP 650 mg q6h prnPT/OT prnawait ortho consultati onwill monitor Benign pro static hyperplasia 304658728 N40.1 Ornelas catheterfu urologyfin asteride 5 mg dailytamsu losin 0.8 mg dailywill monitor Gastroesop hageal reflux disease without esophagitis 758737888 K21.9 famotidine 20 mg bidwill monitor Cobalamin deficiency 190 795113 E53.8 B12 1000 mcg dailywill monitor Mixed anxi ety and depressive disorder 200058519 F41.8 mirtazapin e 15 mg dailywill monitor [id number] MARK SCHROEDER NP [address] [address] 12/04/2022 11:16:37 12/10/2022 12:55:03 Vascular dementia 161074328 F01.50 expect declinewil l monitor and support as needed Atrial fibrillation 4943 6004 I48.0 apixaban 2.5 mg biddiltiaz em ER 120 mg daily for rate controlwil l monitor Pain of ri ght shoulder joint 4352420102 7311913 M25.511 diclofenac gel bidAPAP 650 mg q6h prnPT/OT prnawait ortho consultati onwill monitor Benign pro static hyperplasia 155885505 N40.1 Ornelas catheterf/ u urologyfin asteride 5 mg dailytamsu losin 0.8 mg dailywill monitor Gastroesop hageal reflux disease without esophagitis 920380041 K21.9 famotidine 20 mg bidwill monitor Cobalamin deficiency 190 905412 E53.8 B12 1000 mcg dailywill monitor Mixed anxi ety and depressive disorder 397295717 F41.8 mirtazapin e 15 mg dailywill monitor [id number] MARK SCHROEDER NP [address] [address] 01/27/2023 14:41:48 01/29/2023 16:16:55 Vascular dementia 287532904 F01.50 expect declinewil l monitor and support as needed Atrial fibrillation 4943 6004 I48.0 apixaban 2.5 mg biddiltiaz em ER 120 mg daily for rate controlwil l monitor Pain of ri ght shoulder joint 6349142126 9704582 M25.511 diclofenac gel bidAPAP 650 mg q6h prnPT/OT prnawait ortho consultati onwill monitor Benign pro static hyperplasia 501626810 N40.1 Ornelas catheterf/ u urologyfin asteride 5 mg dailytamsu losin 0.8 mg dailywill monitor Gastroesop hageal reflux disease without esophagitis 759989525 K21.9 famotidine 20 mg bidwill monitor Cobalamin deficiency 190 692953 E53.8 B12 1000 mcg dailywill monitor Mixed anxi ety and depressive disorder 839623647 F41.8 mirtazapin e 15 mg dailywill monitor Asthenia 74775167 R53.1 PT/OT/EDGE BRUSHER prnwill monitor and support as needed Falls 907928103 R29.6 PT OT eval and treatfall precaution sfrequent safety checks [id number] MD STANISLAV Munoz [address] [place] [address] rd [place] [address] 02/22/2023 12:39:11 02/24/2023 13:44:41 Sepsis caused by Escherichia coli 446757280 A41.51 To complete course of abx with cefuroxime 500 mg BID until 03/05 (14 day course).Wi ll add probiotic BID for 14 more days.Monit or sxs. Acute urin maciej tract infection 440156045 N30.01 As above. Chronic re tention of urine 842965007 R33.8 Continue chronic ornelas, change every 30 days.F/U with uro prn. Benign pro static hyperplasia with outflow obstruction 418133102 N40.1 As above.Cont inue tamsulosin 0.8 mg qd and finasterid e 5 mg qd.F/U with uro Atrial fibrillation 4943 6004 I48.0 Rate in good control on diltiazem ER 120 mg qdContinue eliquis 2.5 mg BID for AC.Monitor HR and bleeding risk. Pain of ri ght shoulder joint 4393117395 7829168 M25.511 Continue APAP 650 mg q 6 hr prnWill use OT as ableAwaiti ng ortho consultati onMonitor Gastroesop hageal reflux disease without esophagitis 631036704 K21.9 No current sxs.Contin ue famotidine 20 mg BIDMonitor sxs Cobalamin deficiency 190 294946 E53.8 Continue vitamin B12 1000 mcg qdNo recent level, will check with tomorrow's labs, then yearly Mixed anxi ety and depressive disorder [id number] F41.8 As above. Asthenia 43642400 R53.1 Is deconditio jen from recent illness.Ne eds PT/OT for strengthen ing, balance, gait training, safety and function.C ontinue fall precaution s.Monitor for safety. Dementia 96601232 F02.B3 Likely multifacto rial with vascular and EtOH components .Continues at baselineCo ntinue mirtazapin e 15 mg qdContinue supportive care, expect decline.Vega charisse guardianMo nitor mood and behaviors. Psych follows. [id number] MARK SCHROEDER NP [address] [address] 03/03/2023 11:23:38 03/05/2023 15:37:10 Sepsis caused by Escherichia coli 958479159 A41.51 To complete course of abx with cefuroxime 500 mg BID until 03/05 (14 day course). Will add probiotic BID for 14 more days. Monitor sxs. Acute urin maciej tract infection 677699285 N30.01 cefuroxime 500 mg bid [facility] [id number] MARK SCHROEDER NP [address] [address] 04/14/2023 11:08:09 04/16/2023 08:47:29 Vascular dementia 299413579 F01.50 expect declinewil l monitor and support as needed Atrial fibrillation 4943 6004 I48.0 apixaban 2.5 mg biddiltiaz em ER 120 mg daily for rate controlwil l monitor Pain of ri ght shoulder joint [id number] 0324521 M25.511 diclofenac gel bidAPAP 650 mg q6h prnPT/OT prnawait ortho consultati onwill monitor Benign pro static hyperplasia 733230396 N40.1 Ornelas catheterf/ u urologyfin asteride 5 mg dailytamsu losin 0.8 mg dailywill monitor Gastroesop hageal reflux disease without esophagitis 373542240 K21.9 famotidine 20 mg bidwill monitor Cobalamin deficiency 190 360914 E53.8 B12 1000 mcg dailywill monitor Mixed anxi ety and depressive disorder 056339399 F41.8 mirtazapin e 15 mg dailywill monitor Asthenia 89437355 R53.1 PT/OT/EDGE BRUSHER prnwill monitor and support as needed Falls 172305074 R29.6 PT OT eval and treatfall precaution sfrequent safety checks [id number] Estefanía Witt MD [address] [address] 06/11/2023 15:07:43 06/15/2023 19:26:06 Chronic retention of urine 433628373 R33.8 No recent issuesCont inue chronic ornelas, change every 30 days.F/U with uro prn. Benign pro static hyperplasia with outflow obstruction 986591303 N40.1 As above.Cont inue tamsulosin 0.8 mg qd and finasterid e 5 mg qd.F/U with uro Dementia 66632080 F02.B3 Continues at baselineCo ntinue mirtazapin e 15 mg qdContinue supportive care, expect decline.Vega s guardian, needs updated [facility] ip papers scanned into [facility].Monito r mood and behaviors. Psych follows. Mixed anxi ety and depressive disorder 134689129 F41.8 As above. Atrial fibrillation 4943 6004 I48.0 Rate remains in good control on diltiazem ER 120 mg qdContinue eliquis 2.5 mg BID for AC.Monitor HR and bleeding risk. Gastroesop hageal reflux disease without esophagitis 062412446 K21.9 No current sxs.Contin ue famotidine 20 mg BIDMonitor sxs [id number] AUDI CAPONE APRIL [address] [place] [address] [place] [address] 06/16/2023 14:19:39 06/23/2023 18:09:18 Acute urinary tract infection 512110057 N30.01 levofloxin 750 mg qod x6 dosesgood ornelas caremonito r for symptoms Vascular dementia 792177 004 F01.50 expect declinewil l monitor and support as needed Atrial fibrillation 4943 6004 I48.0 apixaban 2.5 mg biddiltiaz em ER 120 mg daily for rate controlwil l monitor Pain of ri ght shoulder joint 3008725484 0759421 M25.511 diclofenac gel bidAPAP 650 mg q6h prnPT/OT prnawait ortho consultati onwill monitor Benign pro static hyperplasia 090206391 N40.1 Ornelas catheterf/ u urologyfin asteride 5 mg dailytamsu losin 0.8 mg dailywill monitor Gastroesop hageal reflux disease without esophagitis 972618778 K21.9 famotidine 20 mg bidwill monitor Cobalamin deficiency 190 851806 E53.8 B12 1000 mcg dailywill monitor Mixed anxi ety and depressive disorder 443427100 F41.8 mirtazapin e 15 mg dailywill monitor Asthenia 02738245 R53.1 PT/OT/EDGE BRUSHER prnwill monitor and support as needed Falls 707634477 R29.6 PT OT eval and treatfall precaution sfrequent safety checks [id number] MARK SCHROEDER [employer] [address] [address] 06/21/2023 13:07:48 06/23/2023 18:53:43 Acute urinary tract infection 809288912 N30.01 levofloxin 750 mg qod x6 dosesgood ornelas caremonito r for symptoms Vascular dementia 497732 004 F01.50 expect declinewil l monitor and support as needed Falls 019255904 R29.6 PT OT eval and treatfall precaution sfrequent safety checks [id number] MARK GARAYAUDI EATON [address] [address] 06/30/2023 10:16:19 07/13/2023 09:45:01 Acute urinary tract infection 154979815 N30.01 levofloxin 750 mg qod x6 doses-comp letedgood ornelas caremonito r for symptoms Benign pro static hyperplasia 394068665 N40.1 Ornelas catheterf/ u urologyfin asteride 5 mg dailytamsu losin 0.8 mg dailywill monitor [id number] Gail MedinaAlysa Gorge [address] [address] 08/20/2023 10:35:03 08/31/2023 10:01:42 Benign prostatic hyperplasia 676256726 N40.1 continue with chronic ornelas, change monthly and prncontinu e finasterid e 5mg dailyfollo wed by urology Acute urin maciej tract infection 588794069 N30.01 last UTI in hospital 06/13/23 tx with [place] ntinue vit c 500mg BID UTI procontinu e D-mannose 1g BID UTI promonitor , change ornelas monthly Atrial fibrillation 4943 6004 I48.0 chronic, stable. RCcontinue diltiazem 120mg dailyeliqu is 2.5mg BID Cobalamin deficiency 190 365761 E53.8 chronic stablecont inue supplement [id number] RASHAWN WAGGONER [address] [address] 09/13/2023 11:11:07 09/15/2023 09:51:03 Herpes zoster 2774757 B02.9 valacyclov ir 1000 mg q12 for 5 daysgabape ntin 300 mg q 6 prn for 5 daysbenadr yl 25 mg q6 hours for pruritis prntylenol 650 mg prn for discomfort .monitor for worsening sx , nursing to update provider with changesmon itor VS qshiftplac e on precaution s per facility protocol.p t to wear loose clothing [id number] RASHAWN WAGGONER [address] [address] 09/27/2023 12:16:45 09/30/2023 12:31:03 Acute urinary tract infection 958723711 N30.01 with acute encephalop athytx with IV linezolid d/t renal function and ceftriaxon edischarge d to facility on Cefuroxime 500 MG BID until 41Linezol id 600 MG BID until 10/03 Traumatic hematuria 9556 7008 R31.9 tx with [facility]; now resolved Herpes zoster 5532745 B0 2.9 dx with shinglesva lacyclovir 1000 mg q12 for 5 daysgabape ntin 300 mg q 6 prn for 5 daysbenadr yl 25 mg q6 hours for pruritis prntylenol 650 mg prn for discomfort .monitor for worsening sx , nursing to update provider with changesmon itor VS qshiftplac e on precaution s per facility protocol. Essential hypertension 04802716 I10 diltiazem 120 mg dailymonit or BP Benign pro static hyperplasia 261751628 N40.1 chronic ornelas catheterco ntinue finasterid e and flomax Atrial fibrillation 4943 6004 I48.0 continue eliquiscon tinue cardizemmo nitor HR Nutritional disorder 249 2008 E44.0 underweigh t 15.7nutrit ional supplement s TID with mealsmonit or monthly weights Acute kidney injury 1466 9001 N17.9 resolved [id number] RASHAWN WAGGONER [address] [address] 09/30/2023 09:22:37 10/05/2023 11:35:15 Acute urinary tract infection 579656772 N30.01 with acute encephalop athytx with IV linezolid d/t renal function and ceftriaxon edischarge d to facility on Cefuroxime 500 MG BID until inezol id 600 MG BID until 10/03 Herpes zoster 8219186 B0 2.9 dx with shinglesva lacyclovir 1000 mg q12 for 5 days-compl etedgabape ntin 300 mg q 6 prn for 5 days -completed benadryl 25 mg q6 hours for pruritis prntylenol 650 mg prn for discomfort .monitor for worsening sx , nursing to update provider with changesmon itor VS qshiftplac e on precaution s per facility protocol. Essential hypertension 43647939 I10 diltiazem 120 mg dailymonit or BP Benign pro static hyperplasia 378508524 N40.1 chronic ornelas catheterco ntinue finasterid e and flomax Atrial fibrillation 4943 6004 I48.0 continue eliquiscon tinue cardizemmo nitor HR Nutritional disorder 249 2009 E44.0 underweigh t 15.7nutrit ional supplement s TID with mealsmonit or monthly weights [id number] RASHAWN WAGGONER [address] [address] 10/07/2023 10:51:23 10/11/2023 14:34:12 Acute urinary tract infection 127993911 N30.01 abx completed 10/04/23 Herpes zoster 9776201 B0 2.9 dx with shinglesan tiviral completed. Essential hypertension 54166986 I10 diltiazem 120 mg dailymonit or BP Benign pro static hyperplasia 083851260 N40.1 chronic ornelas catheterco ntinue finasterid e and flomax Atrial fibrillation 4943 6004 I48.0 continue eliquiscon tinue cardizemmo nitor HR Nutritional disorder 249 2008 E44.0 will order weight time 3 days at 6am for accuracy.u nderweight 15.7nutrit ional supplement s TID with mealsmonit or monthly weights [id number] RASHAWN WAGGONER [address] [address] 10/12/2023 08:24:59 10/25/2023 13:43:58 Acute urinary tract infection 972025689 N30.01 abx completed 10/04/23 Herpes zoster 5954531 B0 2.9 rash resolving, no open areasblist er healed, skin redness continues. antiviral completed. Essential hypertension 86409603 I10 diltiazem 120 mg dailymonit or BP Benign pro static hyperplasia 060163853 N40.1 chronic ornelas catheterco ntinue finasterid e and flomax Nutritional disorder 249 2009 E44.0 appetite wax and wanesnoted with> than 10 lbs weight lossnursin g to encourage supplement al shakes .underweig ht 15.7nutrit ional supplement s TID with mealsmonit or monthly weights [id number] RASHAWN WAGGONER [address] [address] 10/19/2023 10:54:51 10/26/2023 11:03:11 Acute urinary tract infection 515422513 N30.01 resolved Herpes zoster 5851611 B0 2.9 resolved Essential hypertension 12034411 I10 diltiazem 120 mg dailymonit or BP Benign pro static hyperplasia 810200824 N40.1 chronic ornelas catheterco ntinue finasterid e and flomax Nutritional disorder 249 2009 E44.0 appetite wax and wanesbette r today, noted eating breakfast. noted with> than 10 lbs weight lossnursin g to encourage supplement al shakes .underweig ht 15.7nutrit ional supplement s TID with mealsmonit or monthly weights [id number] Estefanía Witt MD [address] [address] 10/22/2023 18:41:41 12/13/2023 13:58:00 Adult failure to thrive syndrome 667638924 R62.7 With marked wt. loss.Will add ensure/reyna st 8 oz BID and get senior linux unix administrator consult.Al ready on mirtazapin e 15 mg qd.Monitor wts Dementia 03710444 F02.B3 Continues at baselineCo ntinue mirtazapin e 15 mg qdContinue supportive care, expect decline.Gary mcqueen guardian.M onitor mood and behaviors. Psych follows. Chronic re tention of urine 148553244 R33.8 No recent issuesCont inue chronic ornelas, change every 30 days.F/U with uro prn. Benign pro static hyperplasia with outflow obstruction 600112921 N40.1 As above.Cont inue tamsulosin 0.8 mg qd and finasterid e 5 mg qd.F/U with uro Mixed anxi ety and depressive disorder 846684378 F41.8 As above. Atrial fibrillation 4943 6004 I48.0 Rate remains in good control on diltiazem ER 120 mg qdContinue eliquis 2.5 mg BID for AC.Monitor HR and bleeding risk. Gastroesop hageal reflux disease without esophagitis 367675907 K21.9 No current sxs.Contin ue famotidine 20 mg BIDMonitor sxs [id number] RASHAWN WAGGONER [address] [address] 10/27/2023 09:18:00 11/02/2023 14:04:27 Essential hypertension 68766625 I10 diltiazem 120 mg dailymonit or BP Benign pro static hyperplasia 745245696 N40.1 chronic ornelas catheterco ntinue finasterid e and flomax Nutritional disorder 249 2009 E44.0 appetite wax and wanesnoted with> than 10 lbs weight lossnursin g to encourage supplement al shakes .underweig ht 15.7nutrit ional supplement s TID with mealsmonit or monthly weights Urinary tr act infectious disease 53565426 N39.0 Started on Methenamin e Hippurate 1 GM for preventati ve measures. [id number] RASHAWN WAGGONER [address] [address] 11/04/2023 09:11:34 11/09/2023 10:00:16 Essential hypertension 93287262 I10 diltiazem 120 mg dailymonit or BP Benign pro static hyperplasia 199674005 N40.1 chronic ornelas catheterco ntinue finasterid e and flomax Nutritional disorder 249 2009 E44.0 appetite wax and wanesnoted with> than 10 lbs weight lossnursin g to encourage supplement al shakes .underweig ht 15.7nutrit ional supplement s TID with mealsmonit or monthly weights Urinary tr act infectious disease 26194743 N39.0 Started on Methenamin e Hippurate 1 GM for preventati ve measures. [id number] RASHAWN WAGGONER [address] [address] 11/16/2023 08:30:13 11/22/2023 12:12:26 Urinary tract infectious disease 19778384 N39.0 Sepsis secondary to UTI due to chronic indwelling FoleyConti nue oral amoxicilli n and oral fluconazol e (end date both 11/21) for total of 14 day courseChan ge foleys every 3-4 weeks and use catheter secure Acute kidney injury 1466 9001 N17.9 DOUGLAS secondary to ATNresolve d. Blood in urine 29717163 R31.9 baseline he will present with hematuria in ornelas catheter.C hronic Ornelas in place.abril tor Atrial fibrillation 4943 6004 I48.0 continue eliquis 2.5 mg dailyconti nue cardizem- d/c in acute care due to bradycardi a, monitor need to restart.mo nitor HR Dementia 19537657 F02.B3 Continue mirtazapin e 15 mg qd Gastroesop hageal reflux disease without esophagitis 935032142 K21.9 Continue famotidine 20 mg BIDMonitor sxs Cobalamin deficiency 190 106885 E53.8 Ascorbic Acid 500 MG dailyCyano cobalamin 1000 mcg daily Benign pro static hyperplasia 433010147 N40.1 chronic ornelas catheterco ntinue finasterid e 5 mg daily [id number] RASHAWN WAGGONER [address] [address] 2023 11:24:22 11/26/2023 08:45:18 Urinary tract infectious disease 00476374 N39.0 antibiotic s completed. Sepsis secondary to [...] monitor need to restart.mo nitor HR Dementia 15601324 F02.B3 Continue mirtazapin e 15 mg qd Gastroesop hageal reflux disease without esophagitis 475358261 K21.9 Continue famotidine 20 mg BIDMonitor sxs [id number] RASHAWN WAGGONER [address] [address] 12/02/2023 09:46:58 12/07/2023 11:56:04 Urinary tract infectious disease 03142450 N39.0 antibiotic s completed. Change ornelas every 3-4 weeks and use catheter secure Atrial fibrillation 4943 6004 I48.0 continue eliquis 2.5 mg dailyconti nue cardizem- d/c in acute care due to bradycardi a, monitor need to restart.mo nitor HR 74 0n 12/01- has been stable 70-80s. Dementia 99981565 F02.B3 Continue mirtazapin e 15 mg qd Gastroesop hageal reflux disease without esophagitis 953784108 K21.9 Continue famotidine 20 mg BIDMonitor sxs [id number] RASHAWN WAGGONER [address] [address] 5 12/06/2023 12:48:19 12/07/2023 12:34:24 Atrial fibrillation 09974207 I48.0 continue eliquis 2.5 mg dailyconti nue cardizem- d/c in acute care due to bradycardi a, monitor need to restart.HR stable. denies any chest pain, SOB or palpitatio ns. 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 [id number] RASHAWN WAGGONER [address] [address] 12/14/2023 10:28:27 12/17/2023 08:36:28 Urinary tract infectious disease 72690074 N39.0 resolved Acute kidney injury 1466 9001 N17.9 DOUGLAS secondary to ATNresolve d. Blood in urine 28453656 R31.9 baseline he will present with hematuria in ornelas catheter.C hronic Ornelas in place.abril tor Atrial fibrillation 4943 6004 I48.0 continue eliquis 2.5 mg daily Dementia 54387876 F02.B3 Continue mirtazapin e 15 mg qd Gastroesop hageal reflux disease without esophagitis 213616738 K21.9 Continue famotidine 20 mg BID Cobalamin deficiency 190 018599 E53.8 Ascorbic Acid 500 MG dailyCyano cobalamin 1000 mcg daily Benign pro static hyperplasia 860666308 N40.1 chronic ornelas catheterco ntinue finasterid e 5 mg daily [id number] RASHAWN WAGGONER [address] [place] [address] 5 12/28/2023 10:37:21 12/31/2023 14:58:13 Urinary tract infectious disease 56012357 N39.0 Cefuroxime 250 mg BID for 7 dayscontin ue Acidophilu s Oral Capsule daily. Benign pro static hyperplasia 020275929 N40.1 chronic ornelas catheter -patent and draining to gravity today.cont inue finasterid e 5 mg dailynursi ng to provide ornelas care per facility protocol qshift. [id number] RASHAWN WAGGONER [address] [place] [address] 02/08/2024 12:48:44 02/09/2024 14:43:43 Dementia 24316507 F02.B3 noted with an agitation, hitting himself in the head, there is no injury.duncan sing able to redirect patient behavior, although he is redirectab le from self harm he continues to be noted with agitation. nursing reports that patient gets easily agitated with too environmen tabby stimuli.wi ll add trazodone 25 mg q 8 prn for anxiety for 14 days. [id number] NADIRA BROOKS, VP [employer] [address] [address] 03/07/2024 11:27:24 03/09/2024 14:27:31 Dementia 40767574 F02.B3 with agitation and anxietyrec ently trial on 14 days trazadone with improvemen t with behaviors per nursing.re cently seen by psych with recommenda tions to schedule daily at hswill add trazadone 25 mg at hs and monitor effectiven ess. [id number] RASHAWN WAGGONER [address] [address] 03/13/2024 10:00:17 03/15/2024 10:09:29 Atrial fibrillation 63601204 I48.0 continue eliquis 2.5 mg daily Dementia 67743023 F02.B3 Continue mirtazapin e 15 mg qdrecently trial on 14 days trazadone with improvemen t with behaviors per nursing.no w on trazadone 25 mg at hs for anxiety with agitation Gastroesop hageal reflux disease without esophagitis 543094532 K21.9 Continue famotidine 20 mg BID Cobalamin deficiency 190 551937 E53.8 Ascorbic Acid 500 MG dailyCyano cobalamin 1000 mcg daily Benign pro static hyperplasia 504868090 N40.1 chronic ornelas catheterco ntinue finasterid e 5 mg daily [id number] RASAHWN WAGGONER [address] [address] 03/27/2024 10:56:25 03/28/2024 13:30:57 Atrial fibrillation 65591100 I48.0 continue eliquis 2.5 mg dailyno abn bleeding or bruisingoc c hematuria that resolves with irrigation . Dementia 32601770 F02.B3 Continue mirtazapin e 15 mg qdrecently trial on 14 days trazadone with improvemen t with behaviors per nursing.cn tinue trazadone 25 mg at hs for anxiety with agitation Gastroesop hageal reflux disease without esophagitis 085099870 K21.9 Continue famotidine 20 mg BIDno reported GI upset Cobalamin deficiency 190 783599 E53.8 Ascorbic Acid 500 MG dailyCyano cobalamin 1000 mcg daily Benign pro static hyperplasia 409593213 N40.1 chronic ornelas catheterco ntinue finasterid e 5 mg dailyPatie nt had planned procedure for plan suprapubic ornelas on 03/21- had to be reschedule d due to transporta tion. Adult fail ure to thrive syndrome 853585038 R62.7 02/25/24 ensures increased from BID to TIDof note patient noted with 6 lb weight gaincontin ue ensure/reyna st 8 oz TIDmirtaza pine 15 mg qd.Monitor wts [id number] RASHAWN WAGGONER [address] [address] 03/30/2024 11:03:41 03/31/2024 12:43:23 Benign prostatic hyperplasia 769356271 N40.1 chronic ornelas catheterco ntinue finasterid e 5 mg dailyPatie nt had planned procedure for plan suprapubic ornelas on 03/21- had to be reschedule d due to transporta tion. Retention of urine due to occlusion of Ornelas catheter 716784291 R33.8 see hpiHX of BPH, no coude catheter available to replaced current ornelas, patient previously sent to ED for ornelas replacemen t due to difficult insertion. will send to ED for evaluation [id number] RASHAWN WAGGONER [address] [address] 04/17/2024 11:47:14 04/18/2024 16:02:01 Benign prostatic hyperplasia 906023602 N40.1 now with suprapubic catheter -continue finasterid e 5 mg daily Dementia 91079272 F02.B3 can be impulsive, easily agitatedex pect declineCon tinue mirtazapin e 15 mg qdcontinue trazadone 25 mg at hs for anxiety with agitation Suprapubic urinary catheter in situ 365847487 Z96.0 monitor for sx of site infection update provider with changes.pa tent and drainingap ply abdominal binder to prevent accidental pulling out.change catheter tubing per urology recs. [id number] RASHAWN WAGGONER [facility] [address] [place] [address] 04/20/2024 13:55:50 04/21/2024 11:40:27 Benign prostatic hyperplasia 804710787 N40.1 now with suprapubic catheter -continue finasterid e 5 mg daily Dementia 03979432 F02.B3 can be impulsive, easily agitatedex pect declineCon tinue mirtazapin e 15 mg qdcontinue trazadone 25 mg at hs for anxiety with agitation Suprapubic urinary catheter in situ 810414874 Z96.0 pt incidental ly pulled out stitch, there has been no concerns, site is clean and dry no drainagemo nitor for sx of site infection update provider with changes.pa tent and drainingap ply abdominal binder to prevent accidental pulling out.change catheter tubing per urology recs. [id number] RASHAWN WAGGONER [address] [address] 04/24/2024 08:37:53 04/26/2024 09:17:19 Benign prostatic hyperplasia 329674308 N40.1 now with suprapubic catheter -continue finasterid e 5 mg daily Dementia 05885283 F02.B3 stable today, mood pleasant .can be impulsive, easily agitatedex pect declineCon tinue mirtazapin e 15 mg qdcontinue trazadone 25 mg at hs for anxiety with agitation Suprapubic urinary catheter in situ 559031498 Z96.0 pt incidental ly pulled out stitch, there has been no concerns, site is clean and dry no drainagemo nitor for sx of site infection update provider with changes.pa tent and drainingap ply abdominal binder to prevent accidental pulling out.change catheter tubing per urology recs. [id number] RASHAWN WAGGONER [address] [address] 04/27/2024 11:14:21 05/01/2024 15:09:09 Benign prostatic hyperplasia 954420716 N40.1 now with suprapubic catheter -continue finasterid e 5 mg daily Dementia 89439099 F02.B3 stablecan be impulsive, easily agitatedex pect declineCon tinue mirtazapin e 15 mg qdcontinue trazadone 25 mg at hs for anxiety with agitation Suprapubic urinary catheter in situ 186555349 Z96.0 pt incidental ly pulled out stitch, there has been no concerns, site is clean and dry no drainagemo nitor for sx of site infection update provider with changes.pa tent and drainingap ply abdominal binder to prevent accidental pulling out.change catheter tubing per urology recs. Essential hypertension 87269673 I10 stabledilt iazem 120 mg dailymonit or BP [id number] RASHAWN WAGGONER [address] [address] 05/05/2024 12:40:01 05/08/2024 13:34:52 Benign prostatic hyperplasia 335299016 N40.1 now with suprapubic catheter -continue finasterid e 5 mg daily Dementia 55989841 F02.B3 stablecan be impulsive, easily agitatedex pect declineCon tinue mirtazapin e 15 mg qdcontinue trazadone 25 mg at hs for anxiety with agitation Suprapubic urinary catheter in situ 694067198 Z96.0 pt incidental ly pulled out stitch, there has been no concerns, site is clean and dry no drainagemo nitor for sx of site infection update provider with changes.pa tent and drainingap ply abdominal binder to prevent accidental pulling out.change catheter tubing per urology recs. Essential hypertension 05562531 I10 stabledilt iazem 120 mg dailymonit or BP [id number] RASHAWN WAGGONER [address] [address] 05/15/2024 12:19:47 05/31/2024 12:02:09 Benign prostatic hyperplasia 684712469 N40.1 now with suprapubic catheter -continue finasterid e 5 mg daily Dementia 83917174 F02.B3 stablecan be impulsive, easily agitatedex pect declineCon tinue mirtazapin e 15 mg qdcontinue trazadone 25 mg at hs for anxiety with agitation Suprapubic urinary catheter in situ 080224688 Z96.0 monitor for sx of site infection update provider with changes.pa tent and drainingab dominal binder to prevent accidental pulling out.change catheter tubing per urology recs. Essential hypertension 08496420 I10 stabledilt iazem 120 mg dailymonit or BP [id number] RASHAWN WAGGONER [address] [address] 05/29/2024 11:13:49 05/31/2024 12:05:16 Gastrointestinal hemorrhage 72395916 K92.2 see hpicontinu e sucralfate 1g for 14 days after mealsprilo sec 20 mg daily for 8 weeksconti nue pepcid 20 mg BIDavoid NSAIDavoid lying flat for 1 hour after eating- recommend OOB for meals Aspiration pneumonia 422 294775 J69.0 tx with IV zosyn in acute caredischa rge on augmentin BID for 5 daysavoid lying flat for 1 hour after eating- recommend OOB for meals Acute urin maciej tract infection 188020319 N30.01 Enterococc us faecalis.c ontinue Augmentinh igh risk for recurrent due to s/p ornelas Acute kidney injury 1466 9001 N17.9 Likely from renal hypoperfus ion/hypote nsion. noted with metabolic acidosisHX ATNavoid nephrotoxi c meds Bradycardia 28175355 R00 .1 see hpimonitor HRavoid beta blockers Umair hematuria 23108908 5 R31.0 noted with about 700 cc of dark red, dark cranberry colored urine can not see through in ornelas catheter tubing and bag.he is on eliquis BIDwill send to ED for evaluation due to significan t amount most likely will need irrigation . [id number] RASHAWN WAGGONER [address] [place], [place] [address] [address] 06/05/2024 12:03:56 06/07/2024 11:45:22 Gastrointestinal hemorrhage 75773800 K92.2 no reported coffee ground emesis since returning ontinue sucralfate 1g for 14 days after mealsprilo sec 20 mg daily for 8 weeksconti nue pepcid 20 mg BIDavoid NSAIDavoid lying flat for 1 hour after eating- recommend OOB for meals Aspiration pneumonia 422 444526 J69.0 completed abxavoid lying flat for 1 hour after eating- recommend OOB for meals Acute urin maciej tract infection 594515386 N30.01 abx completed Umair hematuria 49034903 5 R31.0 122: pink tingeddisc ussed with nursing to monitor outputcan restart eliquis [id number] NADIRA BROOKS, VP [employer] [address] [address] 06/08/2024 08:39:45 06/09/2024 12:00:08 Gastrointestinal hemorrhage 89993701 K92.2 no reported coffee ground emesis since returningc ontinue sucralfate 1g for 14 days after mealsprilo sec 20 mg daily for 8 weeksavoid NSAIDavoid lying flat for 1 hour after eating- recommend OOB for meals Umair hematuria 37196734 5 R31.0 suprapubic catheter with geovani urine noted todaydiscu ssed with nursing to monitor outputcan restart eliquis 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 Rare yeast and pseudohyph ae are present, consistent with Violette speciesnow on fluconazol e 200 mg qd for 14 dayscontin ue PPI and N2Tbwjh extend carafate 1 gm after meals QD. [id number] RASHAWN WAGGONER [address] [address] 06/12/2024 10:18:47 06/13/2024 14:16:39 Gastrointestinal hemorrhage 68873742 K92.2 no reported coffee ground emesis since returning ontinue sucralfate 1g for 14 days after mealsprilo sec 20 mg daily for 8 weeksavoid NSAIDavoid lying flat for 1 hour after eating- recommend OOB for mealsmonit or weekly labs for now Umair hematuria 24590918 5 R31.0 suprapubic catheter with geovani urine noted todaydiscu ssed with nursing to monitor outputcont inue eliquis Ulcerative esophagitis 974319220 K22.10 esophagus biopsy resulted 06/06 showed Ulcerative esophagiti s. Rare yeast and pseudohyph ae are present, consistent with Violette speciesnow on fluconazol e 200 mg qd for 14 dayscontin ue PPIwill extend carafate 1 gm after meals QD. [id number] RASHAWN WAGGONER [address] [address] 06/15/2024 08:20:07 06/16/2024 13:24:29 Gastrointestinal hemorrhage 82049884 K92.2 no reported coffee ground emesis since returningc ontinue sucralfate prilosec 20 mg daily for 8 weeksavoid NSAIDavoid lying flat for 1 hour after eating- recommend OOB for mealsmonit or weekly labs for now Umair hematuria 72224045 5 R31.0 suprapubic catheter with geovani urine noted todaydiscu ssed with nursing to monitor outputcont inue eliquis Ulcerative esophagitis 647562059 K22.10 esophagus biopsy resulted 06/06 showed Ulcerative esophagiti s. Rare yeast and pseudohyph ae are present, consistent with Violette speciesnow on fluconazol e 200 mg qd for 14 days until 06/21conti nue PPIwill extend carafate 1 gm after meals QD. Urethral u rinary catheter in situ for mcc use 6869224703 104 Z96.0 prone to frequent UTI; recently completed ABX.Ornelas patent and draining.C hange ornelas every 3-4 weeks and use catheter securenurs ing to do ornelas care twice daily encouraged . [id number] [facility] [address] [place] [address] 06/19/2024 10:41:37 06/20/2024 12:04:02 Ulcerative esophagitis 708684929 K22.10 esophagus biopsy resulted 06/06 showed Ulcerative esophagiti s. Rare yeast and pseudohyph ae are present, consistent with Violette speciesnow on fluconazol e 200 mg qd for 14 days until 06/21conti nue PPIwill extend carafate 1 gm after meals QD. 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 [id number] [facility]ON[facility] [address] [place] [address] 06/26/2024 10:30:09 06/27/2024 09:52:09 Ulcerative esophagitis 608238285 K22.10 esophagus biopsy resulted 06/06 showed Ulcerative esophagiti s. Rare yeast and pseudohyph ae are present, consistent with Violette speciesnow on completed fluconazol e on 07/01will extend carafate 1 gm after meals QD. 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 Atrial fibrillation 4943 6004 I48.0 continue eliquis 2.5 mg daily- monitor for hematuriao cc hematuria that resolves with irrigation . Benign pro static hyperplasia 105114054 N40.1 with suprapubic catheter -continue finasterid e 5 mg daily Dementia 33590898 F02.B3 stable at his baselineca n be impulsive, easily agitatedex pect declineCon tinue mirtazapin e 15 mg qdcontinue trazadone 25 mg at hs for anxiety with agitation Essential hypertension 59466806 I10 stabledilt iazem 120 mg dailymonit [place] BP [id number] RASHAWN WAGGONER APRIL [address] [place] [address] 10/01/2024 10:54:39 10/05/2024 16:06:42 Urethral urinary catheter in situ for mcc use 7016933061 104 Z96.0 recurrent UTI Hxwill start on PPX [facility] Atrial fibrillation 4943 6004 I48.0 stablerate controlled continue eliquis 2.5 mg daily- Benign pro static hyperplasia 885976213 N40.1 with suprapubic catheter -continue finasterid e 5 mg daily Dementia 16408243 F02.B3 stable at his baselineca n be impulsive, easily agitatedex pect declineCon tinue mirtazapin e 15 mg qdcontinue trazadone 25 mg at hs for anxiety with agitation Essential hypertension 37291131 I10 stabledilt iazem 120 mg dailymonit [place] BP [id number] Rajesh Son MD [address] [place] [address] 10/04/2024 11:48:11 10/05/2024 16:26:16 Atrial fibrillation 65961121 I48.0 eliquis 2.5 mg bidmonitor for rate control Benign pro static hyperplasia 526108756 N40.1 followed by urology Dementia 06661853 F02.B3 baseline dementia with behaviorsc urrently calmmonito r for behaviorsu pdate psych with concerns Recurrent urinary tract infection 334602190 N30.20 suprapubic cath in placenow on macrobid 100 mg qd with cath change q 3 weeksmonit or for effectcoor dinate with urology Health Concerns Section Related Observation LastModified by Organization Detai ls LastModified Time None Recorded Concern Status LastModified by Organization Details LastModified Time None Recorded Advance Directives Directive N: assumed full code Payers Encounter Date Sequence Insurance Name Policy Number Policy [place] Covered Member ID Latham Member ID Guarantor Name 06/15/2024 1 [place] [employer] Joel Acevedo [id number] Joel Acevedo 06/15/2024 2 [place] [facility] Joel Acevedo [id number] Joel Acevedo 06/19/2024 1 [place] [employer] Joel Acevedo [id number] Joel Acevedo 06/19/2024 2 [place] [facility] Joel Acevedo [id number] Joel Acevedo 06/26/2024 1 [place] [employer] Joel Acevedo [id number] Joel Acevedo 06/26/2024 2 [place] [facility] Joel Acevedo [id number] Joel Acevedo 10/01/2024 1 [place] [employer] Joel Acevedo [id number] Joel Acevedo 10/01/2024 2 [place] [facility] Joel Acevedo [id number] Joel Acevedo 10/04/2024 1 [place] [facility] Joel Acevedo [id number] Joel Acevedo 10/04/2024 2 [place] [facility] Joel Acevedo [id number] Joel Acevedo Notes Date Note Type Note Provider Name and Address Organization Details Recorded Time 06/15/2024 text/html This is a 78 yo [...] he is currently at his baseline in [facility], there are no acute nursing concerns. Nurse notes reviewed, no acute nursing concerns. RASHAWN WAGGONER [address] [facility], [address], [place], [address], [facility] 06/15/2024 15:54:20 06/19/2024 text/html This is a 78 yo male LTC resident seen for acute rounding visit. He has been at his baseline in [facility]. He ornelas has been patent and without any hematuria.He denies any throat discomfort, nursing reports that he is eating ok, he continues on antifungal, compliant with meds. Nurse notes reviewed, no acute nursing concerns. RASHAWN WAGGONER [address], [address], [place], [address], [facility] 06/19/2024 14:23:00 06/26/2024 text/html This is a 78 yo male LTC resident seen for routine rounding visit. He has been at his baseline in [facility]. There are no acute nursing concerns. He is dependent on nursing staff to meet health care needs. He prefers to stay in his room, anxiety increases when he is out of his room. NN reviewed. RASHAWN WAGGONER [address] , [address], [place], [address], [facility] 06/26/2024 13:20:51 10/01/2024 text/html This is a 78 yo male LTC resident seen for routine rounding visit. Nursing notes reviewed, it appears that he has been more mobile lately with behaviors, he has been going into other residents rooms , attempting to get into their beds, he has been refusing adl care and needs redirecting with suprapubic catheter. He ad a recent ED visit for suprapubic catheter pain, UA was +, however he was not treated, not sure why and this provider was not aware or UA results. RASHAWN WAGGONER [address], [address], [place], [address], [facility] 10/02/2024 09:10:20 10/04/2024 text/html Patient is a 78 yo male resident seen for MD visit. Patient with baseline suprapubic cath with recurrent UTI. Now started on prophylaxis with cath change q 3 weeks. Discussed with nursing. Patient lying in bed in [facility] with baseline impaired cognition Rajesh Son MD [address], [address], [place], [address], [facility] 10/04/2024 11:54:32
--- OUTSIDE RECORDS SUMMARY | 2024-10-09 05:46 | XMS_ITS | Continuity of Care Document ---
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 Plan of Treatment Reminders Order Date Submit [...] Organization Details Recorded Time Benign prostatic hyperplasia 078359547 Active 2021 MARK SCHROEDER NP [address] , [address], [place], [address], [facility] [employer] [facility] 2 12:42:30 Vascular dementia 415928024 Active 2021 MARK SCHROEDER NP [address], [address], [place], [address], [facility] [employer] [facility] 2 12:42:36 Constipatio n 82019492 Active 2021 MARK SCHROEDER NP [address], [address], [place], [address], [facility] 2 12:42:45 Atrial fibrillatio n 03240835 Active 2021 MARK SCHROEDER NP [address], [address], [place], [address], [facility] [employer] [facility] 2 12:42:54 Falls 929104423 Active 2021 MARK SCHROEDER NP [address], [address], [place], [address], [place] [facility] 2 12:44:39 Gastroesoph ageal reflux disease without esophagitis 220021886 Active 2021 MARK SCHROEDER NP [address], [address], [place], [address], [facility] 2 12:57:57 Acute urinary tract infection 816702285 Active 2021 MARK SCHROEDER NP [address], [address], [place], [address], [facility] 2 14:13:29 Asthenia 49031439 Active 2021 Estefanía Witt MD [address], [address], [place], [address], [facility] 2 16:45:01 Fever 736072329 Active 2021 MARK SCHROEDER NP [address], [address], [place], [address], [facility] 2 10:07:39 COVID-19 281040584 Active 2021 MARK SCHROEDER NP [address], [address], [place], [address], [facility] 2 11:15:20 Bacteremia 8755711 Active 2022 MARK SCHROEDER NP [address], [address], [place], [address], [facility] 3 10:08:56 Pain of right shoulder joint 6107113695831 9100 Active 2022 MARK SCHROEDER NP [address], [address], [place], [address], [facility] 3 12:54:04 Cobalamin deficiency 557147563 Active 2022 Estefanía Witt MD [address], [address], [place], [address], [facility] 3 13:34:49 Sepsis caused by Escherichia coli 468250160 Active 2022 MARK SCHROEDER NP [address], [address], [place], [address], [facility] 3 11:28:51 Dementia 63893634 Active 2022 Estefanía Witt MD [address], [address], [place], [address], [facility] 3 15:58:50 Urinary tract infectious disease 46105787 Active 2023 RASHAWN WAGGONER [address], [address], [place], [address], [facility] 4 20:24:56 Traumatic hematuria 53629986 Active 2023 RASHAWN WAGGONER [address], [address], [place], [address], [facility] 4 20:56:51 Essential hypertensio n 26523908 Active 2023 RASHAWN WAGGONER [address], [address], [place], [address], [facility] 4 21:01:00 Nutritional disorder 1363303 Active 2023 RASHAWN WAGGONER [address], [address], [place], [address], [facility] 4 21:02:35 Adult failure to thrive syndrome 796639516 Active 2023 Estefanía Witt MD [address], [address], [place], [address], [facility] 4 21:38:36 Bradycardia 91766640 Active 2023 RASHAWN WAGGONER [address], [address], [place], [address], [facility] 4 14:06:56 Acute kidney injury 72897614 Active 2023 RASHAWN WAGGONER [address], [address], [place], [address], [facility] 4 14:06:59 Aspiration pneumonia 142129437 Active 2023 RASHAWN WAGGONER [address], [address], [place], [address], [facility] [employer] [facility] 4 14:07:05 Gastrointes tinal hemorrhage 99439782 Active 2023 RASHAWN WAGGONER [address] [facility], [address], [place], [address], [facility] [employer] [facility] 4 14:07:15 Ulcerative esophagitis 040795149 Active 2023 RASHAWN WAGGONER [address] [facility], [facility] [address], [place], [address], [facility] [employer] [facility] [facility] 4 15:56:54 Umair hematuria 834569361 Active 2023 RASHAWN WAGGONER [address] [facility], [facility] [address], [place], [address], [facility] [employer] [facility] 4 15:56:56 Recurrent urinary tract infection 567828868 Active 2024 Rajesh Son MD [address] [place] [address], [facility] [address], [place], [address], [facility] [facility] 5 11:53:04 Problem Notes None recorded. Medical Equipment None Reported. Allergies No known drug allergies Medications Not known to be on any medication Vitals Date Recorded Body height Systolic blood pressure Diastolic blood pressure Provider Name and Address Organization Details Last Updated DateTime 10/04/2024 157.48 cm 113 mm[Hg] 69 mm[Hg] Rajesh Son MD [address] [place] [address], [facility] [address], [place], [address], [facility] [employer] [facility] 10/04/2024 11:49:04 Social History Question Answer Notes LastModified by Organizat ion Details LastModified Time Tobacco Smoking Status Never Smoker Estefanía Witt MD [address] [place] [address], [facility] [address], [place], [address], [facility] [employer] [facility] 01/20/2022 16:47:58 Do You Have An [...] not available 01/16/2022 [facility] Information not available 06/11/2023 Legal Guardian? Yes Informati on not available 01/20/2022 Do You Have A Medical Power Of Senior Manager Creative Services? Yes Guardian, Alecia Isabel Information not available [...] 30 mcg/0.3 mL dose 05/14/2021 completed Soumya Lawler [facility] 04/17/2022 15:49:57 COVID-19, mRNA, LNP-S, PF, 30 mcg/0.3 mL dose 11/21/2020 [facility] 15:50:05 COVID-19, mRNA, LNP-S, PF, 30 mcg/0.3 mL dose 11/04/2021 [facility] 15:50:17 COVID-19, mRNA, LNP-S, PF, 30 mcg/0.3 mL dose 04/16/2022 completed Soumya Lawler [facility] 04/17/2022 15:50:25 Influenza, adjuvanted, quadrivalent, PF 05/18/2022 completed Netta Matthew [facility] 07/22/2023 10:59:51 Influenza, adjuvanted, quadrivalent, PF 02/10/2023 completed Netta Matthew [facility] 07/22/2023 11:00:07 Past Encounters Encounter ID Performer Location Encounter Start Date Encounter Closed Date Diagnosis/Indication Diagnosis SNOMED-CT Code Diagnosis ICD10 Code Diagnosis Note [id number] RASHAWN WAGGONER [address] [address] 10/01/2024 10:54:39 10/05/2024 16:06:42 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 catheter in situ for jail use 4282232238 104 Z96.0 recurrent UTI Hxwill start on PPX abxmacrobi d [facility] Atrial fibrillation 4943 6004 I48.0 stablerate controlled continue eliquis 2.5 mg daily- Benign pro static hyperplasia 237959386 N40.1 with suprapubic catheter -continue finasterid e 5 mg daily Dementia 53806222 F02.B3 stable at his baselineca n be impulsive, easily agitatedex pect declineCon tinue mirtazapin e 15 mg qdcontinue trazadone 25 mg at hs for anxiety with agitation Essential hypertension 99246031 I10 stabledilt iazem 120 mg dailymonit or BP [id number] MD STANISLAV Griffiths APRIL [address] [place] [address] 10/04/2024 11:48:11 10/05/2024 16:26:16 Atrial fibrillation 12394993 I48.0 eliquis 2.5 mg bidmonitor for rate control Benign pro static hyperplasia 747875623 N40.1 followed by urology Dementia 07027913 F02.B3 baseline dementia with behaviorsc urrently calmmonito r for behaviorsu pdate psych with concerns Recurrent urinary tract infection 385685857 N30.20 suprapubic cath in placenow on macrobid 100 mg qd with cath change q 3 weeksmonit or for effectcoor dinate with urology Health Concerns Section Related Observation LastModified by Organization Detai ls LastModified Time None Recorded Concern Status LastModified by Organization Details LastModified Time None Recorded Payers Encounter Date Sequence Insurance Name Policy Number Policy L[place] Covered Member ID Latham Member ID Guarantor Name 10/04/2024 1 [place] [employer] Joel Acevedo [id number] Joel Acevedo 10/04/2024 2 [place] [facility] Joel Acevedo [id number] Joel Acevedo Notes Date Note Type Note Provider Name and Address Organization Details Recorded Time 10/04/2024 text/html Patient is a 78 yo male resident seen for MD visit. Patient with baseline suprapubic cath with recurrent UTI. Now started on prophylaxis with cath change q 3 weeks. Discussed with nursing. Patient lying in bed in [facility] with baseline impaired cognition Rajesh Son MD [address] [place] [address], [address], [place], [address], [facility] 10/04/2024 11:54:32
[2024-10-09 06:48] LABS: Anion Gap 13 (12-20); Blood Urea Nitrogen 18 mg/dL (9-16); Calcium 8.4 mg/dL (8.4-10.2); Carbon Dioxide 26 mmol/L (22-29); Chloride 105 mmol/L (96-108); Estimated Glomerular Filt Rate > 60; Glucose Random 69 mg/dL (60-115); Potassium 3.7 mmol/L (3.3-5.1); Sodium 140 mmol/L (135-145)
[2024-10-09 06:49] LABS: Basophils Absolute Auto 0.1 X10*3/uL (0.0-0.2); Basophils Percent Auto 0.8 % (0-2); Eosinophils Absolute Auto 0.2 X10*3/uL (0.0-0.4); Eosinophils Percent Auto 3.9 % (0-4); Hematocrit 35.9 % (42.0-52.0); Imm Gran Abs Auto 0.01 X10*3/uL (0.00-0.03); Imm Gran Pct Auto 0.2 % (0.0-0.4); Lymphocytes Percent Auto 34.2 % (20-40); Mean Corpuscular HGB Conc 33.4 g/dl (31.0-36.0); Mean Corpuscular Hemoglobin 30.2 pg (27.0-33.0); Mean Corpuscular Volume 90.4 fL (80.0-98.0); Mean Platelet Volume 9.9 fL (9.4-12.4); Monocytes Absolute Auto 0.6 X10*3/uL (0.1-1.2); Monocytes Percent Auto 10.8 % (2-11); Neutrophils Percent Auto 50.1 % (45-73); Platelet Count 207 X10*3/uL (160-400); Red Blood Count 3.97 X10*6/uL (4.60-5.80); White Blood Count 5.9 X10*3/uL (4.8-10.8)
== END 2024-10-09 05:44 | disposition home or self-care (01) ==
LOC: HO.MMNH3L 05:43
PROVIDERS: Visit Provider Family Medicine
DX: G93.41 Metabolic encephalopathy (principal); N39.0 Urinary tract infection, site not specified; F41.8 Other specified anxiety disorders
CPT/HCPCS: 36415; 80048; 85025

== ENCOUNTER 2024-11-13 06:10 | Outpatient (REF) | payer MEDICARE, MEDICAID, SELFPAY ==
[2024-11-13 06:11] LABS: MANUAL DIFF FLAG NO
--- OUTSIDE RECORDS SUMMARY | 2024-11-13 06:12 | XMS_ITS | Data Portability ---
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 [employer] [facility] 2 12:42:36 Constipatio n 09011267 Active 2021 MARK SCHROEDER NP [address] [facility], [address], [place], [address], [facility] [employer] [facility] 2 12:42:45 Atrial fibrillatio n 38044431 Active 2021 MARK SCHROEDER NP [address] [facility], [address], [place], [address], [facility] [employer] [facility] 2 12:42:54 Falls 421670835 Active 2021 MARK SCHROEDER NP [address] , [address], [place], [address], [facility] [employer] [facility] 2 12:44:39 Gastroesoph ageal reflux disease without esophagitis 214918937 Active 2021 MARK SCHROEDER NP [address] [facility], [address], [place], [address], [facility] 2 12:57:57 Acute urinary tract infection 348805306 Active 2021 MARK SCHROEDER NP [address], [address], [place], [address], [facility] 2 14:13:29 Asthenia 09580558 Active 2021 Estefanía Witt MD [address], [address], [place], [address], [facility] 2 16:45:01 Fever 746652270 Active 2021 MARK SCHROEDER NP [address], [address], [place], [address], [facility] 2 10:07:39 COVID-19 570557549 Active 2021 MARK SCHROEDER NP [address], [address], [place], [address], [facility] 2 11:15:20 Bacteremia 4231920 Active 2022 MARK SCHROEDER NP [address], [address], [place], [address], [facility] 3 10:08:56 Pain of right shoulder joint 5267235987967 9100 Active 2022 MARK SCHROEDER NP [address], [address], [place], [address], [facility] 3 12:54:04 Cobalamin deficiency 535512365 Active 2022 Estefanía Witt MD [address], [address], [place], [address], [facility] 3 13:34:49 Sepsis caused by Escherichia coli 447736738 Active 2022 MARK SCHROEDER NP [address], [address], [place], [address], [facility] 3 11:28:51 Dementia 65079187 Active 2022 Estefanía Witt MD [address], [address], [place], [address], [place] [facility] 3 15:58:50 Urinary tract infectious disease 97347293 Active 2023 RASHAWN WAGGONER [address], [address], [place], [address], [facility] 4 20:24:56 Traumatic hematuria 80311183 Active 2023 JOHN WAGGONERP [address], [address], [place], [address], [facility] 4 20:56:51 Essential hypertensio n 17214465 Active 2023 NADIRA BROOKS, SPEECH AND HEARING CLINIC DIRECTOR [address], [address], [place], [address], [facility] 4 21:01:00 Nutritional disorder 6286698 Active 2023 RASHAWN WAGGONER [address], [address], [place], [address], [facility] 4 21:02:35 Adult failure to thrive syndrome 237929803 Active 2023 Estefanía Witt MD [address], [address], [place], [address], [facility] 4 21:38:36 Bradycardia 49751238 Active 2023 RASHAWN WAGGONER [address], [address], [place], [address], [facility] 4 14:06:56 Acute kidney injury 45703257 Active 2023 RASHAWN WAGGONER [address], [address], [place], [address], [facility] 4 14:06:59 Aspiration pneumonia 510633195 Active 2023 RASHAWN WAGGONER [address], [address], [place], [address], [facility] 4 14:07:05 Gastrointes tinal hemorrhage 94737142 Active 2023 RASHAWN WAGGONER [address], [address], [place], [address], [facility] 4 14:07:15 Ulcerative esophagitis 163443411 Active 2023 NADIRARASHAWN DAILEY [address] [facility], [address], [place], [address], [facility] 4 15:56:54 Umair hematuria 872775319 Active 2023 RASHAWN WAGGONER [address] [facility], [address], [place], [address], [facility] 4 15:56:56 Recurrent urinary tract infection 211857418 Active 2024 Rajesh Son MD [address] [facility], [address], [place], [address], [facility] 5 11:53:04 Problem Notes None recorded. Medical Equipment None Reported. Allergies No known drug allergies Medications Not known to be on any medication Vitals Date Recorded Body height Provider Name an d Address Organization Details Last Updated DateTime 06/15/2024 157.48 cm RASHAWN WAGGONER [address] [facility], [address], [place], [address], [facility] 06/15/2024 09:44:54 Date Recorded Body height Provider Name an d Address Organization Details Last Updated DateTime 06/26/2024 157.48 cm RASHAWN WAGGONER [address] [facility], [address], [place], [address], [facility] 06/26/2024 13:14:24 Date Recorded Body height Heart rate Respiratory rate Body temperature Oxygen saturation Oxygen saturation in Arterial blood by Pulse oximetry Systolic blood pressure Diastolic blood pressure Provider Name and Address Organization Details Last Updated DateTime 5 157.48 cm 57 /min 18 /min 97.3 [degF] 95 % 95 % 114 mm[Hg] 72 mm[Hg] RASHAWN WAGGONER [address] [facility], [address], [place], [address], [facility] 5 08:46:05 Date Recorded Body height Systolic blood pressure Diastolic blood pressure Provider Name and Address Organization Details Last Updated DateTime 10/04/2024 157.48 cm 113 mm[Hg] 69 mm[Hg] Rajesh Son MD [address], [address], [place], [address], [facility] 10/04/2024 11:49:04 Social History Question Answer Notes LastModified by Organizat ion Details LastModified Time Tobacco Smoking Status Never Smoker Estefanía Witt MD [address], [address], [place], [address], [facility] 01/20/2022 16:47:58 Do You Have An Advance Directive? No Assumed Full Code Information not available 01/16/2022 What Is Your Code Status? Full Code Information not available 01/16/2022 Where Do You Live? [facility] Information not available 06/11/2023 Legal Guardian? Yes Informati on not available 01/20/2022 Do You Have A Medical Power Of Remarketing Rep? Yes Guardian, Alecia Isabel Information not available 01/16/2022 What Was The Date Of Your Most Recent Tobacco Screening? 01/20/2022 Information not available 01/20/2022 Do You Have An Out Of Hospital DNR? No Information not available 01/20/2022 Have You Ever Been Counseled For Unhealthy Alcohol Use? No He Denies Information not available 01/20/2022 What Is Your Relationship Status? Single Information not available 01/20/2022 Has Tobacco Cessation Counseling Been Provided? No N/a As Pt Is Non-smoker Information not available 01/20/2022 Have You Used IV Drugs? No Information not available 01/20/2022 Sex: Unknown Functional Status Question Answer Note LastModified by Organizat ion Details LastModified Time How many times per week do you consume alcohol? 5-7 times per week Information not available 01/20/2022 Do you use any illicit or recreational drugs? No marijuana, he says none for many yrs. Information not available 06/11/2023 Do you or have you ever used any other forms of tobacco or nicotine? No Information not available 01/20/2022 What is your level of alcohol consumption? None Previously drank about 3 beers/d Information not available 06/11/2023 Mental Status None recorded. Family History Nothing Reported Notes:n/c Medical History No medical history recorded. Immunizations Vaccine Type Date Status Note Provider Nam e and Address Organization Details Recorded Time COVID-19, mRNA, LNP-S, PF, 30 mcg/0.3 mL dose 05/14/2021 [facility] 04/17/2022 15:49:57 COVID-19, mRNA, LNP-S, PF, 30 mcg/0.3 mL dose 11/21/2020 completed Soumya yañez [facility] 04/17/2022 15:50:05 COVID-19, mRNA, LNP-S, PF, 30 mcg/0.3 mL dose 11/04/2021 [facility] 04/17/2022 15:50:17 COVID-19, mRNA, LNP-S, PF, 30 mcg/0.3 mL dose 04/16/2022 [facility] 04/17/2022 15:50:25 Influenza, adjuvanted, quadrivalent, PF 05/18/2022 completed Netta yañez [facility] 07/22/2023 10:59:51 Influenza, adjuvanted, quadrivalent, PF 02/10/2023 [facility] 07/22/2023 11:00:07 Past Encounters Encounter ID Performer Location Encounter Start Date Encounter Closed Date Diagnosis/Indication Diagnosis SNOMED-CT Code Diagnosis ICD10 Code Diagnosis Note [id number] AUDI CAPONE [address] [facility] [place] [address] 01/16/2022 09:17:04 01/20/2022 14:19:48 Vascular dementia 147982948 F01.50 remeron 15 mg hspsych prnchart and monitor any changes in mood or behaviors Atrial fibrillation 4943 6004 I48.91 cardizem 120 mg dailyeliqu is 5 mg bidmonitor heart rate Benign pro static hyperplasia 956624787 N40.1 ornelas cathflomax 0.8 mg dailyfinas teride 5 mg daily Gastroesop hageal reflux disease without esophagitis 486834568 K21.9 pepcid 20 mg daily Constipation 62516274 K5 9.00 senna plus 2 tabs bid Falls 993737314 R29.6 PT OT eval and treatfall precaution sfrequent safety checks [id number] MARK SCHROEDER NP [address] [place] [address] 01/19/2022 14:12:01 01/23/2022 17:01:11 Acute urinary tract infection 485866009 N39.0 cephalexin 500 mg qid x10 daysmonito r for symptoms Benign pro static hyperplasia 610939154 N40.1 ornelas cathflomax 0.8 mg dailyfinas teride 5 mg daily [id number] Estefanía Witt MD [address] [place] [address] 01/20/2022 11:55:23 01/28/2022 16:12:54 Acute urinary tract infection 017108954 N30.01 U/A reportedly + in ED (report not available. Continue cephalexin 500 mg QID x10 days (pending cx)Will get copies of U/A and cx from [facility].Monito r for sxs. Benign pro static hyperplasia 154289458 N40.1 Continue ornelas cathContin ue tamsulosin 0.8 mg qd and finasterid e 5 mg qd.Getting f/u appt with uro. Vascular dementia 474905 004 F01.50 Suspect some element of EtOHic [...] risk. Gastroesop hageal reflux disease without esophagitis 247136957 K21.9 No current sxs.Contin ue famotidine 20 mg qd. Constipation 10895583 K5 9.09 Continue senna plus 2 tabs BID.Monito r bowel function. Falls 481788142 R29.6 As above. Umair hematuria 42438798 5 R31.0 Unclear if from UTI vs. traumatic, vs combinatio n of the 2.Clear now.Monito r Asthenia 30220050 R53.1 Very deconditio jen.Needs PT/OT for strengthen ing, balance, gait training, safety and function.C ontinue fall precaution s.Monitor for safety. [id number] MARK SCHROEDER NP [address] [address] 01/22/2022 12:51:54 01/28/2022 19:53:28 Acute urinary tract infection 754143286 N30.01 recoveredc ephalexin 500 mg qid x10 daysmonito r for symptoms Benign pro static hyperplasia 777241989 N40.1 ornelas cathflomax 0.8 mg dailyfinas teride 5 mg daily Asthenia 72699497 R53.1 PT OT eval and treatfall precaution sfrequent safety checks [id number] MARK SCHROEDER NP [address] [address] 01/26/2022 13:15:39 01/29/2022 09:29:27 Acute urinary tract infection 211898488 N30.01 macobid 100mg bid to 01/29monito r for symptoms Benign pro static hyperplasia 636429729 N40.1 ornelas cathflomax 0.8 mg dailyfinas teride 5 mg dailyurolo gy consult [id number] MARK SCHROEDER NP [address] [address] 01/30/2022 12:08:30 02/13/2022 16:22:20 Acute urinary tract infection 310607978 N30.01 macobid 100mg bid to 01/29monito r for symptoms Benign pro static hyperplasia 095819852 N40.1 ornelas cathflomax 0.8 mg dailyfinas teride 5 mg dailyurolo gy consult Vascular dementia 590565 004 F01.50 remeron 15 mg hspsych prnchart and monitor any changes in mood or behaviors [id number] MARK SCHROEDER NP [address] [address] 02/04/2022 12:45:15 02/16/2022 20:39:21 Benign prostatic hyperplasia 392325635 N40.1 ornelas cathflomax 0.8 mg dailyfinas teride 5 mg dailyurolo gy consult Vascular dementia 070397 004 F01.50 remeron 15 mg hspsych prnchart and monitor any changes in mood or behaviors [id number] MARK GARAYANGELITO AUDI [address] [address] 02/11/2022 12:58:05 02/17/2022 16:07:34 Benign prostatic hyperplasia 970503889 N40.1 ornelas cathflomax 0.8 mg dailyfinas teride 5 mg dailyurolo gy consult Vascular dementia 595824 004 F01.50 remeron 15 mg hspsych prnchart and monitor any changes in mood or behaviors Atrial fibrillation 4943 6004 I48.91 cardizem 120 mg dailyeliqu is 5 mg bidmonitor heart rate Gastroesop hageal reflux disease without esophagitis 698159902 K21.9 pepcid 20 mg daily Constipation 37208846 K5 9.00 senna plus 2 tabs bid [place] 444512793 R29.6 PT OT eval and treatfall precaution sfrequent safety checks [id number] MARK ELDA AUDI [address] [address] 02/18/2022 11:43:57 02/26/2022 11:37:51 Benign prostatic hyperplasia 588808143 N40.1 ornelas cath-will be chronic due to failed voiding trialfloma x 0.8 mg dailyfinas teride 5 mg dailyurolo gy consult Vascular dementia 464126 004 F01.50 remeron 15 mg hspsych prnchart and monitor any changes in mood or behaviors Asthenia 77654854 R53.1 PT OT eval and treatfall precaution sfrequent safety checks [id number] MARK SCHROEDER AUDI [address] [address] 02/26/2022 12:48:09 03/04/2022 15:36:11 Vascular dementia 934397812 F01.50 remeron 15 mg hspsych prnchart and monitor any changes in mood or behaviors Benign pro static hyperplasia 606133591 N40.1 ornelas cath-will be chronic due to failed voiding trialfloma x 0.8 mg dailyfinas teride 5 mg dailyurolo gy consult [id number] Patsy Waite MD [address] [address] 03/13/2022 08:12:36 03/17/2022 14:45:27 Asthenia 09232567 R53.1 PT/OT/BAREBACK RIDER prnwill monitor and support as needed Vascular dementia 998461 004 F01.50 expect declinewil l monitor and support as needed Gastroesop hageal reflux disease without esophagitis 489705046 K21.9 famotidine 20 mg bidwill monitor Benign pro static hyperplasia 670004315 N40.1 Ornelas catheterfu urologyfin asteride 5 mg dailytamsu losin 0.8 mg dailywill monitor Atrial fibrillation 4943 6004 I48.0 apixaban 5 mg biddiltiaz em ER 120 mg daily for rate controlwil l monitor 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8 mg dailywill monitor Atrial fibrillation 4943 6004 I48.0 apixaban 5 mg biddiltiaz em ER 120 mg daily for rate controlwil l monitor Mixed anxi ety and depressive disorder 655771363 F41.8 mirtazapin e 15 mg dailywill monitor Cobalamin deficiency 190 941049 E53.8 B12 1000 mcg dailywill monitor [id number] MARK SCHROEDER NP [address] [address] 04/17/2022 10:06:54 04/21/2022 15:17:37 Fever 431822380 R50.9 ua, covid swab negative, cbc, cmp, blood culturemon itor for response to tylenol [id number] Patsy Waite MD [address] [address] 06/12/2022 06:14:20 06/16/2022 15:35:15 Vascular dementia 579084445 F01.50 expect declinewil l monitor and support as needed Benign pro static hyperplasia 155263473 N40.1 Ornelas catheterfu urologyfin asteride 5 mg dailytamsu losin 0.8 mg dailywill monitor Atrial fibrillation 4943 6004 I48.0 apixaban 2.5 mg biddiltiaz em ER 120 mg daily for rate controlwil l monitor Cobalamin deficiency 190 196243 E53.8 B12 1000 mcg dailywill monitor Mixed anxi ety and depressive disorder 590506071 F41.8 mirtazapin e 15 mg dailywill monitor [id number] MARK SCHROEDER NP [address] [address] 06/29/2022 10:38:59 07/10/2022 13:14:29 COVID-19 158346119 U07.1 06/26 covid positiveen courage po intakecons ider ivf for anorexiaco nsider paxlovid or decadron for symptomsse nd to ED for decompensa tion [id number] MARK SCHROEDER NP [address] [address] 07/01/2022 11:29:19 07/10/2022 13:46:41 COVID-19 528754493 U07.1 06/26 covid positiveen courage po intakecons ider ivf for anorexiaco nsider paxlovid or decadron for symptomsse nd to ED for decompensa tion [id number] MARK SCHROEDER NP [address] [address] 07/02/2022 12:52:16 07/10/2022 14:18:58 COVID-19 524669870 U07.1 06/26 covid positiveen courage po intakecons ider ivf for anorexiaco nsider paxlovid or decadron for symptomsse nd to ED for decompensa tion [id number] MARK SCHROEDER NP STANISLAV CEHN [address] [place] [address] 07/03/2022 11:19:45 07/10/2022 14:49:59 COVID-19 769765276 U07.1 06/26 covid positiveen courage po intakecons ider ivf for anorexiaco nsider paxlovid or decadron for symptomsse nd to ED for decompensa tion [id number] MARK SCHROEDER NP [facility] [address] [place] [address] 07/06/2022 13:44:51 07/10/2022 15:22:57 COVID-19 571683844 U07.1 06/26 covid positive-a symptomati c, recovered by dateencour age po intakecons ider ivf for anorexiaco nsider paxlovid or decadron for symptomsse nd to ED for decompensa tion MARK SCHROEDER NP [facility] [address] [place] [address] 08/03/2022 12:47:40 08/05/2022 13:54:59 Acute urinary tract infection 823420895 N30.01 cefuroxime 250 mg bid x7 days 2/8monitor for symptoms MARK SCHROEDER NP [address] [address] 08/13/2022 08:31:00 08/17/2022 14:54:18 Bacteremia 4117812 R78.81 vanco 1250 mg iv daily to 3/1monitor for symptoms Vascular dementia 670594 004 F01.50 expect declinewil l monitor and support as needed Benign pro static hyperplasia 723016007 N40.1 Ornelas catheterf/ u urologyfin asteride 5 mg dailytamsu losin 0.8 mg dailywill monitor Atrial fibrillation 4948 6004 I48.0 apixaban 2.5 mg biddiltiaz em ER 120 mg daily for rate controlwil l monitor Cobalamin deficiency 190 748454 E53.8 B12 1000 mcg dailywill monitor Mixed anxi ety and depressive disorder 101879100 F41.8 mirtazapin e 15 mg dailywill monitor Gastroesop hageal reflux disease without esophagitis 902282935 K21.9 famotidine 20 mg bidwill monitor [place] 312296174 R29.6 PT OT eval and treatfall precaution sfrequent safety checks [id number] MARK SCHROEDER NP [address] [address] 08/17/2022 15:26:00 08/19/2022 10:15:46 Bacteremia 1026421 R78.81 vanco 1250 mg iv daily to 3/1monitor for symptoms Acute urin maciej tract infection 140994017 N30.01 good ornelas caremonito r for symptoms [id number] MARK SCHROEDER NP [address] [address] 08/19/2022 10:54:09 08/25/2022 10:12:15 Bacteremia 9619075 R78.81 vanco 1250 mg iv daily to 3/1monitor for symptoms Vascular dementia 534641 004 F01.50 expect declinewil l monitor and support as needed Benign pro static hyperplasia 760677272 N40.1 Ornelas catheterf/ u urologyfin asteride 5 mg dailytamsu losin 0.8 mg dailywill monitor Atrial fibrillation 4943 6004 I48.0 apixaban 2.5 mg biddiltiaz em ER 120 mg daily for rate controlwil l monitor Cobalamin deficiency 190 002577 E53.8 B12 1000 mcg dailywill monitor Mixed anxi ety and depressive disorder 158232165 F41.8 mirtazapin e 15 mg dailywill monitor Gastroesop hageal reflux disease without esophagitis 286860919 K21.9 famotidine 20 mg bidwill monitor [place] 095800269 R29.6 PT OT eval and treatfall precaution sfrequent safety checks [id number] MARK SCHROEDER NP [address] [address] 08/27/2022 11:24:35 09/01/2022 07:22:03 Bacteremia 7494534 R78.81 vanco 1250 mg iv daily to 3/1monitor for symptoms Benign pro static hyperplasia 881214948 N40.1 Ornelas catheterf/ u urologyfin asteride 5 mg dailytamsu losin 0.8 mg dailywill monitor [id number] MARK GARAYAUDI EATON [address] [address] 09/01/2022 12:54:58 09/03/2022 12:37:02 Bacteremia 7245339 R78.81 vanco 1250 mg iv daily to 3/1monitor for symptoms Benign pro static hyperplasia 799445118 N40.1 Onrelas catheterf/ u urologyfin asteride 5 mg dailytamsu losin 0.8 mg dailywill monitor [id number] MARK AUDI SCHROEDER [address] [address] 09/10/2022 12:26:40 09/16/2022 14:16:46 Pain of right shoulder joint 5486857199 9238907 M25.511 xrays showed rotator cuff injury/tea rortho consult [id number] Patsy Waite MD [address] [address] 10/14/2022 06:36:11 10/20/2022 11:20:30 Vascular dementia 302069541 F01.50 expect declinewil l monitor and support as needed Atrial fibrillation 4943 6004 I48.0 apixaban 2.5 mg biddiltiaz em ER 120 mg daily for rate controlwil l monitor Pain of ri ght shoulder joint 8625918379 0075758 M25.511 diclofenac gel bidAPAP 650 mg q6h prnPT/OT prnawait ortho consultati onwill monitor Benign pro static hyperplasia 218020800 N40.1 Ornelas catheterfu urologyfin asteride 5 mg dailytamsu losin 0.8 mg dailywill monitor Gastroesop hageal reflux disease without esophagitis 978045756 K21.9 famotidine 20 mg bidwill monitor Cobalamin deficiency 190 036851 E53.8 B12 1000 mcg dailywill monitor Mixed anxi ety and depressive disorder 469261880 F41.8 mirtazapin e 15 mg dailywill monitor [id number] MARK SCHROEDER NP [address] [address] 12/04/2022 11:16:37 12/10/2022 12:55:03 Vascular dementia 261510134 F01.50 expect declinewil l monitor and support as needed Atrial fibrillation 4943 6004 I48.0 apixaban 2.5 mg biddiltiaz em ER 120 mg daily for rate controlwil l monitor Pain of ri ght shoulder joint 0490085649 2504184 M25.511 diclofenac gel bidAPAP 650 mg q6h prnPT/OT prnawait ortho consultati onwill monitor Benign pro static hyperplasia 287762014 N40.1 Ornelas catheterf/ u urologyfin asteride 5 mg dailytamsu losin 0.8 mg dailywill monitor Gastroesop hageal reflux disease without esophagitis 858151872 K21.9 famotidine 20 mg bidwill monitor Cobalamin deficiency 190 221954 E53.8 B12 1000 mcg dailywill monitor Mixed anxi ety and depressive disorder 436402517 F41.8 mirtazapin e 15 mg dailywill monitor [id number] MARK SCHROEDERAUDI [address] [address] 01/27/2023 14:41:48 01/29/2023 16:16:55 Vascular dementia 796360547 F01.50 expect declinewil l monitor and support as needed Atrial fibrillation 4943 6004 I48.0 apixaban 2.5 mg biddiltiaz em ER 120 mg daily for rate controlwil l monitor Pain of ri ght shoulder joint 7169637084 3959889 M25.511 diclofenac gel bidAPAP 650 mg q6h prnPT/OT prnawait ortho consultati onwill monitor Benign pro static hyperplasia 668787349 N40.1 Ornelas catheterf/ u urologyfin asteride 5 mg dailytamsu losin 0.8 mg dailywill monitor Gastroesop hageal reflux disease without esophagitis 814159474 K21.9 famotidine 20 mg bidwill monitor Cobalamin deficiency 190 975739 E53.8 B12 1000 mcg dailywill monitor Mixed anxi ety and depressive disorder 099663255 F41.8 mirtazapin e 15 mg dailywill monitor Asthenia 82477489 R53.1 PT/OT/BAREBACK RIDER prnwill monitor and support as needed [place] 764356522 R29.6 PT OT eval and treatfall precaution sfrequent safety checks [id number] MD STANISLAV Munoz [address] [place] [address] rd [place]IRSTEN [place]Z [address] 02/22/2023 12:39:11 02/24/2023 13:44:41 Sepsis caused by Escherichia coli [id number] A41.51 To complete course of abx with cefuroxime 500 mg BID until 03/05 (14 day course).Wi ll add probiotic BID for 14 more days.Monit or sxs. Acute urin maciej tract infection 349317079 N30.01 As above. Chronic re tention of urine 467380581 R33.8 Continue chronic ornelas, change every 30 days.F/U with uro prn. Benign pro static hyperplasia with outflow obstruction 451570199 N40.1 As above.Cont inue tamsulosin 0.8 mg qd and finasterid e 5 mg qd.F/U with uro Atrial fibrillation 4943 6004 I48.0 Rate in good control on diltiazem ER 120 mg qdContinue eliquis 2.5 mg BID for AC.Monitor HR and bleeding risk. Pain of ri ght shoulder joint [id number] 5793391 M25.511 Continue APAP 650 mg q 6 hr prnWill use OT as ableAwaiti ng ortho consultati onMonitor Gastroesop hageal reflux disease without esophagitis 620982723 K21.9 No current sxs.Contin ue famotidine 20 mg BIDMonitor sxs Cobalamin deficiency 190 287595 E53.8 Continue vitamin B12 1000 mcg qdNo recent level, will check with tomorrow's labs, then yearly Mixed anxi ety and depressive disorder 184875819 F41.8 As above. Asthenia 67070520 R53.1 Is deconditio jen from recent illness.Ne eds PT/OT for strengthen ing, balance, gait training, safety and function.C ontinue fall precaution s.Monitor for safety. Dementia 76385417 F02.B3 Likely multifacto rial with vascular and EtOH components .Continues at baselineCo ntinue mirtazapin e 15 mg qdContinue supportive care, expect decline.Vega s guardianMo nitor mood and behaviors. Psych follows. [id number] MARK SCHROEDER NP [address] [address] 03/03/2023 11:23:38 03/05/2023 15:37:10 Sepsis caused by Escherichia coli 353876743 A41.51 To complete course of abx with cefuroxime 500 mg BID until 03/05 (14 day course). Will add probiotic BID for 14 more days. Monitor sxs. Acute urin maciej tract infection 339306135 N30.01 cefuroxime 500 mg bid to ood ornelas caremonito r for symptoms [id number] MARK SCHROEDER NP [address] [address] 04/14/2023 11:08:09 04/16/2023 08:47:29 Vascular dementia 376595059 F01.50 expect declinewil l monitor and support as needed Atrial fibrillation 4943 6004 I48.0 apixaban 2.5 mg biddiltiaz em ER 120 mg daily for rate controlwil l monitor Pain of ri ght shoulder joint 0300998005 2412689 M25.511 diclofenac gel bidAPAP 650 mg q6h prnPT/OT prnawait ortho consultati onwill monitor Benign pro static hyperplasia 765610518 N40.1 Ornelas catheterf/ u urologyfin asteride 5 mg dailytamsu losin 0.8 mg dailywill monitor Gastroesop hageal reflux disease without esophagitis 854930717 K21.9 famotidine 20 mg bidwill monitor Cobalamin deficiency 190 119232 E53.8 B12 1000 mcg dailywill monitor Mixed anxi ety and depressive disorder 271023726 F41.8 mirtazapin e 15 mg dailywill monitor Asthenia 63492514 R53.1 PT/OT/BAREBACK RIDER prnwill monitor and support as needed [place] 902118666 R29.6 PT OT eval and treatfall precaution sfrequent safety checks [id number] Estefanía Witt MD [address] [address] 06/11/2023 15:07:43 06/15/2023 19:26:06 Chronic retention of urine 359244703 R33.8 No recent issuesCont inue chronic ornelas, change every 30 days.F/U with uro prn. Benign pro static hyperplasia with outflow obstruction 854113128 N40.1 As above.Cont inue tamsulosin 0.8 mg qd and finasterid e 5 mg qd.F/U with uro Dementia 86936437 F02.B3 Continues at baselineCo ntinue mirtazapin e 15 mg qdContinue supportive care, expect decline.Vega s guardian, needs updated guardiansh ip papers scanned into PSYCH[facility]RIC.Monito r mood and behaviors. Psych follows. Mixed anxi ety and depressive disorder 994821787 F41.8 As above. Atrial fibrillation 4943 6004 I48.0 Rate remains in good control on diltiazem ER 120 mg qdContinue eliquis 2.5 mg BID for AC.Monitor HR and bleeding risk. Gastroesop hageal reflux disease without esophagitis 466030432 K21.9 No current sxs.Contin ue famotidine 20 mg BIDMonitor sxs [id number] AUDI CAPONE APRIL [address] [place] [address] 06/16/2023 14:19:39 06/23/2023 18:09:18 Acute urinary tract infection 679298303 N30.01 levofloxin 750 mg qod x6 dosesgood ornelas caremonito r for symptoms Vascular dementia 322248 004 F01.50 expect declinewil l monitor and support as needed Atrial fibrillation 4943 6004 I48.0 apixaban 2.5 mg biddiltiaz em ER 120 mg daily for rate controlwil l monitor Pain of ri ght shoulder joint [id number] 1497598 M25.511 diclofenac gel bidAPAP 650 mg q6h prnPT/OT prnawait ortho consultati onwill monitor Benign pro static hyperplasia 715001596 N40.1 Ornelas catheterf/ u urologyfin asteride 5 mg dailytamsu losin 0.8 mg dailywill monitor Gastroesop hageal reflux disease without esophagitis 492024854 K21.9 famotidine 20 mg bidwill monitor Cobalamin deficiency 190 937134 E53.8 B12 1000 mcg dailywill monitor Mixed anxi ety and depressive disorder 271752213 F41.8 mirtazapin e 15 mg dailywill monitor Asthenia 78250966 R53.1 PT/OT/BAREBACK RIDER prnwill monitor and support as needed [place] 412631425 R29.6 PT OT eval and treatfall precaution sfrequent safety checks [id number] MARK SCHROEDER NP [address] [address] 06/21/2023 13:07:48 06/23/2023 18:53:43 Acute urinary tract infection 122578790 N30.01 levofloxin 750 mg qod x6 dosesgood ornelas caremonito r for symptoms Vascular dementia 120562 004 F01.50 expect declinewil l monitor and support as needed [place] 432927572 R29.6 PT OT eval and treatfall precaution sfrequent safety checks [id number] MARK SCHROEDER NP [address] [address] 06/30/2023 10:16:19 07/13/2023 09:45:01 Acute urinary tract infection 715859424 N30.01 levofloxin 750 mg qod x6 doses-comp letedgood ornelas caremonito r for symptoms Benign pro static hyperplasia 371063257 N40.1 Ornelas catheterf/ u urologyfin asteride 5 mg dailytamsu losin 0.8 mg dailywill monitor [id number] Gail Jose Ramon Pennington [address] [address] 08/20/2023 10:35:03 08/31/2023 10:01:42 Benign prostatic hyperplasia 985101395 N40.1 continue with chronic ornelas, change monthly and prncontinu e finasterid e 5mg dailyfollo wed by urology Acute urin maciej tract infection 151083199 N30.01 last UTI in hospital 06/13/23 tx with [place] ntinue vit c 500mg BID UTI procontinu e D-mannose 1g BID UTI promonitor , change ornelas monthly Atrial fibrillation 4943 6004 I48.0 chronic, stable. RCcontinue diltiazem 120mg dailyeliqu is 2.5mg BID Cobalamin deficiency 190 888308 E53.8 chronic stablecont inue supplement [id number] RASHAWN WAGGONER [address] [address] 09/13/2023 11:11:07 09/15/2023 09:51:03 Herpes zoster 6420565 B02.9 valacyclov ir 1000 mg q12 for 5 daysgabape ntin 300 mg q 6 prn for 5 daysbenadr yl 25 mg q6 hours for pruritis prntylenol 650 mg prn for discomfort .monitor for worsening sx , nursing to update provider with changesmon itor VS qshiftplac e on precaution s per facility protocol.p t to wear loose clothing [id number] RASHAWN WAGGONER [address] [address] 09/27/2023 12:16:45 09/30/2023 12:31:03 Acute urinary tract infection 086632406 N30.01 with acute encephalop athytx with IV linezolid d/t renal function and ceftriaxon edischarge d to facility on Cefuroxime 500 MG BID until inezol id 600 MG BID until 10/03 Traumatic hematuria 9556 7008 R31.9 tx with [facility]; now resolved Herpes zoster 3023965 B0 2.9 dx with shinglesva lacyclovir 1000 mg q12 for 5 daysgabape ntin 300 mg q 6 prn for 5 daysbenadr yl 25 mg q6 hours for pruritis prntylenol 650 mg prn for discomfort .monitor for worsening sx , nursing to update provider with changesmon itor VS qshiftplac e on precaution s per facility protocol. Essential hypertension 45949879 I10 diltiazem 120 mg dailymonit or BP Benign pro static hyperplasia 245403438 N40.1 chronic ornelas catheterco ntinue finasterid e and flomax Atrial fibrillation 4943 6004 I48.0 continue eliquiscon tinue cardizemmo nitor HR Nutritional disorder 249 2009 E44.0 underweigh t 15.7nutrit ional supplement s TID with mealsmonit or monthly weights Acute kidney injury 1466 9001 N17.9 resolved [id number] RASHAWN WAGGONER [address] [address] 09/30/2023 09:22:37 10/05/2023 11:35:15 Acute urinary tract infection 239435547 N30.01 with acute encephalop athytx with IV linezolid d/t renal function and ceftriaxon edischarge d to facility on Cefuroxime 500 MG BID until inezol id 600 MG BID until 10/03 Herpes zoster 1981837 B0 2.9 dx with shinglesva lacyclovir 1000 mg q12 for 5 days-compl etedgabape ntin 300 mg q 6 prn for 5 days -completed benadryl 25 mg q6 hours for pruritis prntylenol 650 mg prn for discomfort .monitor for worsening sx , nursing to update provider with changesmon itor VS qshiftplac e on precaution s per facility protocol. Essential hypertension 46666564 I10 diltiazem 120 mg dailymonit or BP Benign pro static hyperplasia 915793315 N40.1 chronic ornelas catheterco ntinue finasterid e and flomax Atrial fibrillation 4943 6004 I48.0 continue eliquiscon tinue cardizemmo nitor HR Nutritional disorder 249 2009 E44.0 underweigh t 15.7nutrit ional supplement s TID with mealsmonit or monthly weights [id number] RASHAWN WAGGONER [address] [address] 10/07/2023 10:51:23 10/11/2023 14:34:12 Acute urinary tract infection 228989103 N30.01 abx completed 10/04/23 Herpes zoster 9695276 B0 2.9 dx with shinglesan tiviral completed. Essential hypertension 17327560 I10 diltiazem 120 mg dailymonit or BP Benign pro static hyperplasia 425816186 N40.1 chronic ornelas catheterco ntinue finasterid e and flomax Atrial fibrillation 4943 6004 I48.0 continue eliquiscon tinue cardizemmo nitor HR Nutritional disorder 249 2008 E44.0 will order weight time 3 days at 6am for accuracy.u nderweight 15.7nutrit ional supplement s TID with mealsmonit or monthly weights [id number] RASHAWN WAGGONER [address] [address] 10/12/2023 08:24:59 10/25/2023 13:43:58 Acute urinary tract infection 845156103 N30.01 abx completed 10/04/23 Herpes zoster 1467352 B0 2.9 rash resolving, no open areasblist er healed, skin redness continues. antiviral completed. Essential hypertension 99442913 I10 diltiazem 120 mg dailymonit or BP Benign pro static hyperplasia 609271062 N40.1 chronic ornelas catheterco ntinue finasterid e and flomax Nutritional disorder 249 2009 E44.0 appetite wax and wanesnoted with> than 10 lbs weight lossnursin g to encourage supplement al shakes .underweig ht 15.7nutrit ional supplement s TID with mealsmonit or monthly weights [id number] RASHAWN WAGGONER [address] [address] 10/19/2023 10:54:51 10/26/2023 11:03:11 Acute urinary tract infection 598070817 N30.01 resolved Herpes zoster 2985923 B0 2.9 resolved Essential hypertension 46779578 I10 diltiazem 120 mg dailymonit or BP Benign pro static hyperplasia 293959249 N40.1 chronic ornelas catheterco ntinue finasterid e and flomax Nutritional disorder 249 2009 E44.0 appetite wax and wanesbette r today, noted eating breakfast. noted with> than 10 lbs weight lossnursin g to encourage supplement al shakes .underweig ht 15.7nutrit ional supplement s TID with mealsmonit or monthly weights [id number] Estefanía Witt MD [address] [address] 10/22/2023 18:41:41 12/13/2023 13:58:00 Adult failure to thrive syndrome 349785507 R62.7 With marked wt. loss.Will add ensure/reyna st 8 oz BID and get land resource specialist consult.Al ready on mirtazapin e 15 mg qd.Monitor wts Dementia 52215457 F02.B3 Continues at baselineCo ntinue mirtazapin e 15 mg qdContinue supportive care, expect decline.Vega s guardian.M onitor mood and behaviors. Psych follows. Chronic re tention of urine 198574467 R33.8 No recent issuesCont inue chronic ornelas, change every 30 days.F/U with uro prn. Benign pro static hyperplasia with outflow obstruction 811500363 N40.1 As above.Cont inue tamsulosin 0.8 mg qd and finasterid e 5 mg qd.F/U with uro Mixed anxi ety and depressive disorder 125993238 F41.8 As above. Atrial fibrillation 4943 6004 I48.0 Rate remains in good control on diltiazem ER 120 mg qdContinue eliquis 2.5 mg BID for AC.Monitor HR and bleeding risk. Gastroesop hageal reflux disease without esophagitis 103110759 K21.9 No current sxs.Contin ue famotidine 20 mg BIDMonitor sxs [id number] RASHAWN WAGGONER [address] [address] 10/27/2023 09:18:00 11/02/2023 14:04:27 Essential hypertension 47461774 I10 diltiazem 120 mg dailymonit or BP Benign pro static hyperplasia 193947556 N40.1 chronic ornelas catheterco ntinue finasterid e and flomax Nutritional disorder 249 2009 E44.0 appetite wax and wanesnoted with> than 10 lbs weight lossnursin g to encourage supplement al shakes .underweig ht 15.7nutrit ional supplement s TID with mealsmonit or monthly weights Urinary tr act infectious disease 16364028 N39.0 Started on Methenamin e Hippurate 1 GM for preventati ve measures. [id number] RASHAWN WAGGONER [address] [address] 11/04/2023 09:11:34 11/09/2023 10:00:16 Essential hypertension 04011822 I10 diltiazem 120 mg dailymonit or BP Benign pro static hyperplasia 430804431 N40.1 chronic ornelas catheterco ntinue finasterid e and flomax Nutritional disorder 249 2009 E44.0 appetite wax and wanesnoted with> than 10 lbs weight lossnursin g to encourage supplement al shakes .underweig ht 15.7nutrit ional supplement s TID with mealsmonit or monthly weights Urinary tr act infectious disease 96528270 N39.0 Started on Methenamin e Hippurate 1 GM for preventati ve measures. [id number] RASHAWN WAGGONER [address] [address] 11/16/2023 08:30:13 11/22/2023 12:12:26 Urinary tract infectious disease 64022151 N39.0 Sepsis secondary to UTI due to chronic indwelling FoleyConti nue oral amoxicilli n and oral fluconazol e (end date both 11/21) for total of 14 day courseChan ge foleys every 3-4 weeks and use catheter secure Acute kidney injury 1466 9001 N17.9 DOUGLAS secondary to ATNresolve d. Blood in urine 94370764 R31.9 baseline he will present with hematuria in ornelas catheter.C hronic Ornelas in place.abril tor Atrial fibrillation 4943 6004 I48.0 continue eliquis 2.5 mg dailyconti nue cardizem- d/c in acute care due to bradycardi a, monitor need to restart.mo nitor HR Dementia 86844510 F02.B3 Continue mirtazapin e 15 mg qd Gastroesop hageal reflux disease without esophagitis 499458784 K21.9 Continue famotidine 20 mg BIDMonitor sxs Cobalamin deficiency 190 445355 E53.8 Ascorbic Acid 500 MG dailyCyano cobalamin 1000 mcg daily Benign pro static hyperplasia 273638579 N40.1 chronic ornelas catheterco ntinue finasterid e 5 mg daily [id number] RASHAWN WAGGONER [address] [address] 2023 11:24:22 11/26/2023 08:45:18 Urinary tract infectious disease 85658783 N39.0 antibiotic s completed. Sepsis secondary to [...] monitor need to restart.mo nitor HR Dementia 10884783 F02.B3 Continue mirtazapin e 15 mg qd Gastroesop hageal reflux disease without esophagitis 125501717 K21.9 Continue famotidine 20 mg BIDMonitor sxs [id number] RASHAWN WAGGONER [address] [address] 12/02/2023 09:46:58 12/07/2023 11:56:04 Urinary tract infectious disease 41755055 N39.0 antibiotic s completed. Change ornelas every 3-4 weeks and use catheter secure Atrial fibrillation 4943 6004 I48.0 continue eliquis 2.5 mg dailyconti nue cardizem- d/c in acute care due to bradycardi a, monitor need to restart.mo nitor HR 74 0n 12/01- has been stable 70-80s. Dementia 84922360 F02.B3 Continue mirtazapin e 15 mg qd Gastroesop hageal reflux disease without esophagitis 897391101 K21.9 Continue famotidine 20 mg BIDMonitor sxs [id number] RASHAWN WAGGONER [address] [address] 12/06/2023 12:48:19 12/07/2023 12:34:24 Atrial fibrillation 00490463 I48.0 continue eliquis 2.5 mg dailyconti nue cardizem- d/c in acute care due to bradycardi a, monitor need to restart.HR stable. denies any chest pain, SOB or palpitatio ns. 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 [id number] RASHAWN WAGGONER [address] [address] 12/14/2023 10:28:27 12/17/2023 08:36:28 Urinary tract infectious disease 04238706 N39.0 resolved Acute kidney injury 1466 9001 N17.9 DOUGLAS secondary to ATNresolve d. Blood in urine 89288323 R31.9 baseline he will present with hematuria in ornelas catheter.C hronic Ornelas in place.abril tor Atrial fibrillation 4943 6004 I48.0 continue eliquis 2.5 mg daily Dementia 97069329 F02.B3 Continue mirtazapin e 15 mg qd Gastroesop hageal reflux disease without esophagitis 071946829 K21.9 Continue famotidine 20 mg BID Cobalamin deficiency 190 062849 E53.8 Ascorbic Acid 500 MG dailyCyano cobalamin 1000 mcg daily Benign pro static hyperplasia 018384140 N40.1 chronic ornelas catheterco ntinue finasterid e 5 mg daily [id number] RASHAWN WAGGONER [address] [address] 12/28/2023 10:37:21 12/31/2023 14:58:13 Urinary tract infectious disease 95643466 N39.0 Cefuroxime 250 mg BID for 7 dayscontin ue Acidophilu s Oral Capsule daily. Benign pro static hyperplasia 994791237 N40.1 chronic ornelas catheter -patent and draining to gravity today.cont inue finasterid e 5 mg dailynursi ng to provide ornelas care per facility protocol qshift. [id number] RASHAWN WAGGONER [address] [address] 02/08/2024 12:48:44 02/09/2024 14:43:43 Dementia 17787403 F02.B3 noted with an agitation, hitting himself in the head, there is no injury.duncan sing able to redirect patient behavior, although he is redirectab le from self harm he continues to be noted with agitation. nursing reports that patient gets easily agitated with too environmen tabby stimuli.wi ll add trazodone 25 mg q 8 prn for anxiety for 14 days. [id number] RASHAWN WAGGONER [address] [address] 03/07/2024 11:27:24 03/09/2024 14:27:31 Dementia 90404160 F02.B3 with agitation and anxietyrec ently trial on 14 days trazadone with improvemen t with behaviors per nursing.re cently seen by psych with recommenda tions to schedule daily at hswill add trazadone 25 mg at hs and monitor effectiven ess. [id number] RASHAWN WAGGONER [address] [address] 03/13/2024 10:00:17 03/15/2024 10:09:29 Atrial fibrillation 26583156 I48.0 continue eliquis 2.5 mg daily Dementia 42311531 F02.B3 Continue mirtazapin e 15 mg qdrecently trial on 14 days trazadone with improvemen t with behaviors per nursing.no w on trazadone 25 mg at hs for anxiety with agitation Gastroesop hageal reflux disease without esophagitis 123759175 K21.9 Continue famotidine 20 mg BID Cobalamin deficiency 190 933003 E53.8 Ascorbic Acid 500 MG dailyCyano cobalamin 1000 mcg daily Benign pro static hyperplasia 558804995 N40.1 chronic ornelas catheterco ntinue finasterid e 5 mg daily [id number] RASHAWN WAGGONER [address] [address] 5 03/27/2024 10:56:25 03/28/2024 13:30:57 Atrial fibrillation 31436576 I48.0 continue eliquis 2.5 mg dailyno abn bleeding or bruisingoc c hematuria that resolves with irrigation . Dementia 35717901 F02.B3 Continue mirtazapin e 15 mg qdrecently trial on 14 days trazadone with improvemen t with behaviors per nursing.cn tinue trazadone 25 mg at hs for anxiety with agitation Gastroesop hageal reflux disease without esophagitis 463410044 K21.9 Continue famotidine 20 mg BIDno reported GI upset Cobalamin deficiency 190 111303 E53.8 Ascorbic Acid 500 MG dailyCyano cobalamin 1000 mcg daily Benign pro static hyperplasia 993862930 N40.1 chronic ornelas catheterco ntinue finasterid e 5 mg dailyPatie nt had planned procedure for plan suprapubic ornelas on 03/21- had to be reschedule d due to transporta tion. Adult fail ure to thrive syndrome 960980921 R62.7 02/25/24 ensures increased from BID to TIDof note patient noted with 6 lb weight gaincontin ue ensure/reyna st 8 oz TIDmirtaza pine 15 mg qd.Monitor wts [id number] RASHAWN WAGGONER [address] [address] 5 03/30/2024 11:03:41 03/31/2024 12:43:23 Benign prostatic hyperplasia 768070504 N40.1 chronic ornelas catheterco ntinue finasterid e 5 mg dailyPatie nt had planned procedure for plan suprapubic ornelas on 03/21- had to be reschedule d due to transporta tion. Retention of urine due to occlusion of Ornelas catheter 642344280 R33.8 see hpiHX of BPH, no coude catheter available to replaced current ornelas, patient previously sent to ED for ornelas replacemen t due to difficult insertion. will send to ED for evaluation [id number] RASHAWN WAGGONER [address] [address] 04/17/2024 11:47:14 04/18/2024 16:02:01 Benign prostatic hyperplasia 217480460 N40.1 now with suprapubic catheter -continue finasterid e 5 mg daily Dementia 85473757 F02.B3 can be impulsive, easily agitatedex pect declineCon tinue mirtazapin e 15 mg qdcontinue trazadone 25 mg at hs for anxiety with agitation Suprapubic urinary catheter in situ 879340010 Z96.0 monitor for sx of site infection update provider with changes.pa tent and drainingap ply abdominal binder to prevent accidental pulling out.change catheter tubing per urology recs. [id number] RASHAWN WAGGONER [facility] [address] [place] [address] 04/20/2024 13:55:50 04/21/2024 11:40:27 Benign prostatic hyperplasia 001643490 N40.1 now with suprapubic catheter -continue finasterid e 5 mg daily Dementia 94640016 F02.B3 can be impulsive, easily agitatedex pect declineCon tinue mirtazapin e 15 mg qdcontinue trazadone 25 mg at hs for anxiety with agitation Suprapubic urinary catheter in situ 453841563 Z96.0 pt incidental ly pulled out stitch, there has been no concerns, site is clean and dry no drainagemo nitor for sx of site infection update provider with changes.pa tent and drainingap ply abdominal binder to prevent accidental pulling out.change catheter tubing per urology recs. [id number] RASHAWN WAGGONER [address] [address] 04/24/2024 08:37:53 04/26/2024 09:17:19 Benign prostatic hyperplasia 435887956 N40.1 now with suprapubic catheter -continue finasterid e 5 mg daily Dementia 97529686 F02.B3 stable today, mood pleasant .can be impulsive, easily agitatedex pect declineCon tinue mirtazapin e 15 mg qdcontinue trazadone 25 mg at hs for anxiety with agitation Suprapubic urinary catheter in situ 712721740 Z96.0 pt incidental ly pulled out stitch, there has been no concerns, site is clean and dry no drainagemo nitor for sx of site infection update provider with changes.pa tent and drainingap ply abdominal binder to prevent accidental pulling out.change catheter tubing per urology recs. [id number] RASHAWN WAGGONER [address] [address] 04/27/2024 11:14:21 05/01/2024 15:09:09 Benign prostatic hyperplasia 981091856 N40.1 now with suprapubic catheter -continue finasterid e 5 mg daily Dementia 46302224 F02.B3 stablecan be impulsive, easily agitatedex pect declineCon tinue mirtazapin e 15 mg qdcontinue trazadone 25 mg at hs for anxiety with agitation Suprapubic urinary catheter in situ 343691810 Z96.0 pt incidental ly pulled out stitch, there has been no concerns, site is clean and dry no drainagemo nitor for sx of site infection update provider with changes.pa tent and drainingap ply abdominal binder to prevent accidental pulling out.change catheter tubing per urology recs. Essential hypertension 54851969 I10 stabledilt iazem 120 mg dailymonit or BP [id number] RASHAWN WAGGONER [address] [address] 05/05/2024 12:40:01 05/08/2024 13:34:52 Benign prostatic hyperplasia 499411030 N40.1 now with suprapubic catheter -continue finasterid e 5 mg daily Dementia 77294027 F02.B3 stablecan be impulsive, easily agitatedex pect declineCon tinue mirtazapin e 15 mg qdcontinue trazadone 25 mg at hs for anxiety with agitation Suprapubic urinary catheter in situ 730860299 Z96.0 pt incidental ly pulled out stitch, there has been no concerns, site is clean and dry no drainagemo nitor for sx of site infection update provider with changes.pa tent and drainingap ply abdominal binder to prevent accidental pulling out.change catheter tubing per urology recs. Essential hypertension 35701611 I10 stabledilt iazem 120 mg dailymonit or BP [id number] NADIRA BROOKS [address] [address] 05/15/2024 12:19:47 05/31/2024 12:02:09 Benign prostatic hyperplasia 558772164 N40.1 now with suprapubic catheter -continue finasterid e 5 mg daily Dementia 38954474 F02.B3 stablecan be impulsive, easily agitatedex pect declineCon tinue mirtazapin e 15 mg qdcontinue trazadone 25 mg at hs for anxiety with agitation Suprapubic urinary catheter in situ [id number] Z96.0 monitor for sx of site infection update provider with changes.pa tent and drainingab dominal binder to prevent accidental pulling out.change catheter tubing per urology recs. Essential hypertension [id number] I10 stabledilt iazem 120 mg dailymonit [place] BP [id number] RASHAWN WAGGONER [address] [address] 05/29/2024 11:13:49 05/31/2024 12:05:16 Gastrointestinal hemorrhage 26332919 K92.2 see hpicontinu e sucralfate 1g for 14 days after mealsprilo sec 20 mg daily for 8 weeksconti nue pepcid 20 mg BIDavoid NSAIDavoid lying flat for 1 hour after eating- recommend OOB for meals Aspiration pneumonia 422 981920 J69.0 tx with IV zosyn in acute caredischa rge on augmentin BID for 5 daysavoid lying flat for 1 hour after eating- recommend OOB for meals Acute urin maciej tract infection 232272156 N30.01 Enterococc us faecalis.c ontinue Augmentinh igh risk for recurrent due to s/p ornelas Acute kidney injury 1466 9001 N17.9 Likely from renal hypoperfus ion/hypote nsion. noted with metabolic acidosisHX ATNavoid nephrotoxi c meds Bradycardia 40389843 R00 .1 see hpimonitor HRavoid beta blockers Umair hematuria 01186746 5 R31.0 noted with about 700 cc of dark red, dark cranberry colored urine can not see through in ornelas catheter tubing and bag.he is on eliquis BIDwill send to ED for evaluation due to significan t amount most likely will need irrigation . [id number] RASHAWN WAGGONER [address] [address] 06/05/2024 12:03:56 06/07/2024 11:45:22 Gastrointestinal hemorrhage 71556688 K92.2 no reported coffee ground emesis since returning ontinue sucralfate 1g for 14 days after mealsprilo sec 20 mg daily for 8 weeksconti nue pepcid 20 mg BIDavoid NSAIDavoid lying flat for 1 hour after eating- recommend OOB for meals Aspiration pneumonia 422 765472 J69.0 completed abxavoid lying flat for 1 hour after eating- recommend OOB for meals Acute urin maciej tract infection 373912086 N30.01 abx completed Umair hematuria 81429279 5 R31.0 12: pink tingeddisc ussed with nursing to monitor outputcan restart eliquis [id number] RASHAWN WAGGONER [facility] [address] [place] [address] 06/08/2024 08:39:45 06/09/2024 12:00:08 Gastrointestinal hemorrhage 11992730 K92.2 no reported coffee ground emesis since returning ontinue sucralfate 1g for 14 days after mealsprilo sec 20 mg daily for 8 weeksavoid NSAIDavoid lying flat for 1 hour after eating- recommend OOB for meals Umair hematuria 49248823 5 R31.0 suprapubic catheter with geovani urine noted todaydiscu ssed with nursing to monitor outputcan restart eliquis Ulcerative esophagitis 340342614 K22.10 esophagus biopsy resulted 06/06 showed Ulcerative esophagiti s. Rare yeast and pseudohyph ae are present, consistent with Violette speciesnow on fluconazol e 200 mg qd for 14 dayscontin ue PPI and [id number] extend carafate 1 gm after meals QD. [id number] RASHAWN WAGGONER [facility] [address] 06/12/2024 10:18:47 06/13/2024 14:16:39 Gastrointestinal hemorrhage 03006103 K92.2 no reported coffee ground emesis since returning ontinue sucralfate 1g for 14 days after mealsprilo sec 20 mg daily for 8 weeksavoid NSAIDavoid lying flat for 1 hour after eating- recommend OOB for mealsmonit or weekly labs for now Umair hematuria 93893812 5 R31.0 suprapubic catheter with geovani urine noted todaydiscu ssed with nursing to monitor outputcont inue eliquis Ulcerative esophagitis 817291094 K22.10 esophagus biopsy resulted 06/06 showed Ulcerative esophagiti s. Rare yeast and pseudohyph ae are present, consistent with Violette speciesnow on fluconazol e 200 mg qd for 14 dayscontin ue PPIwill extend carafate 1 gm after meals QD. [id number] RASHAWN WAGGONER [facility] [address] [place] [phone] 06/15/2024 08:20:07 06/16/2024 13:24:29 Gastrointestinal hemorrhage 31424318 K92.2 no reported coffee ground emesis since returningc ontinue sucralfate prilosec 20 mg daily for 8 weeksavoid NSAIDavoid lying flat for 1 hour after eating- recommend OOB for mealsmonit or weekly labs for now Umair hematuria 60941685 5 R31.0 suprapubic catheter with geovani urine noted todaydiscu ssed with nursing to monitor outputcont inue eliquis Ulcerative esophagitis 311470790 K22.10 esophagus biopsy resulted 06/06 showed Ulcerative esophagiti s. Rare yeast and pseudohyph ae are present, consistent with Violette speciesnow on fluconazol e 200 mg qd for 14 days until 06/21conti nue PPIwill extend carafate 1 gm after meals QD. Urethral u rinary catheter in situ for long-term use [id number] 104 Z96.0 prone to frequent UTI; recently completed ABX.Ornelas patent and draining.C hange ornelas every 3-4 weeks and use catheter securenurs ing to do ornelas care twice daily encouraged . [id number] RASHAWN WAGGONER [address] [address] 06/19/2024 10:41:37 06/20/2024 12:04:02 Ulcerative esophagitis 759416200 K22.10 esophagus biopsy resulted 06/06 showed Ulcerative esophagiti s. Rare yeast and pseudohyph ae are present, consistent with Violette speciesnow on fluconazol e 200 mg qd for 14 days until 06/21conti nue PPIwill extend carafate 1 gm after meals QD. 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 [id number] RASHAWN WAGGONER [address] [address] 06/26/2024 10:30:09 06/27/2024 09:52:09 Ulcerative esophagitis 801919135 K22.10 esophagus biopsy resulted 06/06 showed Ulcerative esophagiti s. Rare yeast and pseudohyph ae are present, consistent with Violette speciesnow on completed fluconazol e on 07/01will extend carafate 1 gm after meals QD. Gastrointe stinal hemorrhage 18917007 K92.2 no reported coffee ground emesis since returning ontinue sucralfate prilosec 20 mg daily for 8 weeksavoid NSAIDavoid lying flat for 1 hour after eating- recommend OOB for mealsmonit or weekly labs for now Urethral u rinary catheter in situ for long-term use 1399344426 104 Z96.0 prone to frequent UTI; recently completed ABX.Ornelas patent and draining.C hange ornelas every 3-4 weeks and use catheter securenurs ing to do ornelas care twice daily encouraged . Atrial fibrillation 4943 6004 I48.0 continue eliquis 2.5 mg daily- monitor for hematuriao cc hematuria that resolves with irrigation . Benign pro static hyperplasia 183639614 N40.1 with suprapubic catheter -continue finasterid e 5 mg daily Dementia 91967770 F02.B3 stable at his baselineca n be impulsive, easily agitatedex pect declineCon tinue mirtazapin e 15 mg qdcontinue trazadone 25 mg at hs for anxiety with agitation Essential hypertension 30982541 I10 stabledilt iazem 120 mg dailymonit [place] BP [id number] NADIRA BROOKS, RASHAWN CHEN [address] [place] [address] 10/01/2024 10:54:39 10/05/2024 16:06:42 Urethral urinary catheter in situ for long-term use 0149952508 104 Z96.0 recurrent UTI Hxwill start on PPX abxmacrobi d 100 mg daily at HScatheter bag to be changed q 3weeks Atrial fibrillation 4943 6004 I48.0 stablerate controlled continue eliquis 2.5 mg daily- Benign pro static hyperplasia 779677368 N40.1 with suprapubic catheter -continue finasterid e 5 mg daily Dementia 72293165 F02.B3 stable at his baselineca n be impulsive, easily agitatedex pect declineCon tinue mirtazapin e 15 mg qdcontinue trazadone 25 mg at hs for anxiety with agitation Essential hypertension 56836068 I10 stabledilt iazem 120 mg dailymonit [place] BP [id number] Rajesh Son MD [address] [place] [address] 10/04/2024 11:48:11 10/05/2024 16:26:16 Atrial fibrillation 12564618 I48.0 eliquis 2.5 mg bidmonitor for rate control Benign pro static hyperplasia 493314818 N40.1 followed by urology Dementia 17418115 F02.B3 baseline dementia with behaviorsc urrently calmmonito r for behaviorsu pdate psych with concerns Recurrent urinary tract infection 084928076 N30.20 suprapubic cath in placenow on macrobid [...] Member ID Guarantor Name 06/15/2024 1 [place] [employer] Joel Acevedo [id number] Joel Acevedo 06/15/2024 2 [place] [facility] Joel Acevedo [id number] Joel Acevedo 06/19/2024 1 [place] [employer] Joel Acevedo [id number] Joel Acevedo 06/19/2024 2 [place] [facility] Joel Acevedo [id number] Joel Acevedo 06/26/2024 1 [place] [employer] Joel Acevedo [id number] Joel Acevedo 06/26/2024 2 [place] [facility] Joel Acevedo [id number] Joel Acevedo 10/01/2024 1 [place] [employer] Joel Acevedo [id number] Joel Acevedo 10/01/2024 2 [place] [facility] Joel Acevedo [id number] Joel Acevedo 10/04/2024 1 [place] [facility] Joel Acevedo [id number] Joel Acevedo 10/04/2024 2 [place] [facility] Joel Acevedo [id number] Joel Acevedo Notes Date Note Type Note [...] no acute nursing concerns. RASHAWN WAGGONER [address] [facility], [address], [place], [address], [employer] 06/15/2024 15:54:20 06/19/2024 text/html This is a 78 yo male LTC resident seen for acute rounding visit. He has been at his baseline in [facility]. He ornelas has been patent and without any hematuria.He denies any throat discomfort, nursing reports that he is eating ok, he continues on antifungal, compliant with meds. Nurse notes reviewed, no acute nursing concerns. RASHAWN WAGGONER [address] [facility], [address], [place], [address], [employer] 06/19/2024 14:23:00 06/26/2024 text/html This is a 78 yo male LTC resident seen for routine rounding visit. He has been at his baseline in [facility]. There are no acute nursing concerns. He is dependent on nursing staff to meet health care needs. He prefers to stay in his room, anxiety increases when he is out of his room. NN reviewed. RASHAWN WAGGONER [address] [facility], [address], [place], [address], [employer] 06/26/2024 13:20:51 10/01/2024 text/html This is a [...] aware or UA results. RASHAWN WAGGONER [address] [facility], [address], [place], [address], [employer] 10/02/2024 09:10:20 10/04/2024 text/html Patient is a 78 yo male resident seen for MD visit. Patient with baseline suprapubic cath with recurrent UTI. Now started on prophylaxis with cath change q 3 weeks. Discussed with nursing. Patient lying in bed in [facility] with baseline impaired cognition Rajesh Son MD [address] [facility], [address], [place], [address], [employer] 10/04/2024 11:54:32
[2024-11-13 07:02] LABS: Basophils Absolute Auto 0.1 X10*3/uL (0.0-0.2); Basophils Percent Auto 0.9 % (0-2); Eosinophils Absolute Auto 0.2 X10*3/uL (0.0-0.4); Eosinophils Percent Auto 3.4 % (0-4); Hematocrit 37.6 % (42.0-52.0); Imm Gran Abs Auto 0.02 X10*3/uL (0.00-0.03); Imm Gran Pct Auto 0.3 % (0.0-0.4); Lymphocytes Absolute Auto 1.7 X10*3/uL (1.2-4.9); Lymphocytes Percent Auto 26.2 % (20-40); Mean Corpuscular HGB Conc 31.9 g/dl (31.0-36.0); Mean Corpuscular Hemoglobin 30.2 pg (27.0-33.0); Mean Corpuscular Volume 94.7 fL (80.0-98.0); Mean Platelet Volume 10.2 fL (9.4-12.4); Monocytes Absolute Auto 0.5 X10*3/uL (0.1-1.2); Monocytes Percent Auto 7.3 % (2-11); Neutrophils Percent Auto 61.9 % (45-73); Platelet Count 230 X10*3/uL (160-400); Red Blood Count 3.97 X10*6/uL (4.60-5.80); Red Cell Distribution Width 13.7 % (11.0-16.0); White Blood Count 6.4 X10*3/uL (4.8-10.8)
[2024-11-13 07:18] LABS: Anion Gap 12 (12-20); Blood Urea Nitrogen 26 mg/dL (9-16); Calcium 8.7 mg/dL (8.4-10.2); Carbon Dioxide 24 mmol/L (22-29); Chloride 107 mmol/L (96-108); Estimated Glomerular Filt Rate > 60; Glucose Random 74 mg/dL (60-115); Potassium 4.4 mmol/L (3.3-5.1); Sodium 139 mmol/L (135-145)
== END 2024-11-13 06:11 | disposition home or self-care (01) ==
LOC: HO.MMNH3L 06:10
PROVIDERS: Visit Provider Family Medicine
DX: G93.41 Metabolic encephalopathy (principal); N39.0 Urinary tract infection, site not specified; F41.8 Other specified anxiety disorders
CPT/HCPCS: 36415; 80048; 85025

== ENCOUNTER 2024-12-04 06:13 | Outpatient (REF) | payer MEDICARE, MEDICAID, SELFPAY ==
[2024-12-04 06:41] LABS: Anion Gap 16 (12-20); Blood Urea Nitrogen 23 mg/dL (9-16); Calcium 8.8 mg/dL (8.4-10.2); Carbon Dioxide 19 mmol/L (22-29); Chloride 107 mmol/L (96-108); Estimated Glomerular Filt Rate > 60; Glucose Random 67 mg/dL (60-115); Sodium 137 mmol/L (135-145)
== END 2024-12-04 06:14 | disposition home or self-care (01) ==
LOC: HO.MMNH3L 06:13
PROVIDERS: Visit Provider Family Medicine
DX: G93.41 Metabolic encephalopathy (principal); N39.0 Urinary tract infection, site not specified; F41.8 Other specified anxiety disorders
CPT/HCPCS: 36415; 80048

== ENCOUNTER 2025-01-01 07:49 | Outpatient (REF) | payer MEDICARE, MEDICAID, SELFPAY ==
[2025-01-01 06:42] LABS: MANUAL DIFF FLAG NO
[2025-01-01 06:51] LABS: Basophils Percent Auto 0.7 % (0-2); Eosinophils Absolute Auto 0.2 X10*3/uL (0.0-0.4); Eosinophils Percent Auto 3.2 % (0-4); Hematocrit 36.4 % (42.0-52.0); Hemoglobin 11.6 g/dl (14.0-18.0); Imm Gran Abs Auto 0.01 X10*3/uL (0.00-0.03); Imm Gran Pct Auto 0.2 % (0.0-0.4); Lymphocytes Absolute Auto 2.2 X10*3/uL (1.2-4.9); Lymphocytes Percent Auto 36.3 % (20-40); Mean Corpuscular HGB Conc 31.9 g/dl (31.0-36.0); Mean Corpuscular Hemoglobin 29.9 pg (27.0-33.0); Mean Corpuscular Volume 93.8 fL (80.0-98.0); Mean Platelet Volume 9.7 fL (9.4-12.4); Monocytes Absolute Auto 0.5 X10*3/uL (0.1-1.2); Monocytes Percent Auto 7.8 % (2-11); Neutrophils Absolute Auto 3.1 x10*3/uL (2.0-8.3); Neutrophils Percent Auto 51.8 % (45-73); Platelet Count 270 X10*3/uL (160-400); Red Blood Count 3.88 X10*6/uL (4.60-5.80); Red Cell Distribution Width 13.6 % (11.0-16.0); White Blood Count 5.9 X10*3/uL (4.8-10.8)
[2025-01-01 07:09] LABS: Anion Gap 13 (12-20); Blood Urea Nitrogen 31 mg/dL (9-16); Calcium 8.9 mg/dL (8.4-10.2); Carbon Dioxide 22 mmol/L (22-29); Chloride 111 mmol/L (96-108); Estimated Glomerular Filt Rate > 60; Glucose Random 81 mg/dL (60-115); Potassium 4.1 mmol/L (3.3-5.1); Sodium 142 mmol/L (135-145)
--- OUTSIDE RECORDS SUMMARY | 2025-01-01 07:52 | XMS_ITS | Data Portability ---
Author Organization [facility], Main Office Address [address] [facility] [address] [place] [address] Care Team Providers Care Library Attendant Name Role Phone STANISLAV CHEN 3RD FLOOR OTHER [phone] Assessment Encounter Date Assessment Date Assessment LastModified [...] 13-Cr 1.3-wbc 6.6-hgb 11.0-hct 34-plt 303 Labs 12/2: Na 138-K 3.9-Bun 13-Cr 1.0-wbc 5.4-hgb 10.9- [...] Organization Details Recorded Time Benign prostatic hyperplasia 605212727 Active 2021 MARK SCHROEDER NP [address] [facility] [facility], [address], [place], [address], [facility] 2 12:42:30 Vascular dementia 805527969 Active 2021 MARK SCHROEDER NP [address] [facility] [facility] [facility], [address], [place], [address], [facility] 2 12:42:36 Constipatio n 04514112 Active 2021 MARK SCHROEDER NP [address], [address], [place], [address], [facility] 2 12:42:45 Atrial fibrillatio n 79961978 Active 2021 MARK SCHROEDER NP [address], [address], [place], [address], [facility] 2 12:42:54 Falls 258453361 Active 2021 MARK SCHROEDER NP [address], [address], [place], [address], [facility] 2 12:44:39 Gastroesoph ageal reflux disease without esophagitis 363798691 Active 2021 MARK SCHROEDER NP [address], [address], [place], [address], [facility] 2 12:57:57 Acute urinary tract infection 848377729 Active 2021 MARK SCHROEDER NP [address], [address], [place], [address], [facility] 2 14:13:29 Asthenia 03535587 Active 2021 Estefanía Witt MD [address], [address], [place], [address], [facility] 2 16:45:01 Fever 177634911 Active 2021 MARK SCHROEDER NP [address], [address], [place], [address], [facility] 2 10:07:39 COVID-19 232241680 Active 2021 MARK SCHROEDER NP [address], [address], [place], [address], [facility] 2 11:15:20 Bacteremia 9000008 Active 2022 MARK SCHROEDER NP [address], [address], [place], [address], [facility] 3 10:08:56 Pain of right shoulder joint 2358721971078 9100 Active 2022 MARK SCHROEDER NP [address], [address], [place], [address], [facility] 3 12:54:04 Cobalamin deficiency 344044940 Active 2022 Estefanía Witt MD [address], [address], [place], [address], [facility] 3 13:34:49 Sepsis caused by Escherichia coli 299383318 Active 2022 MARK SCHROEDER NP [address], [address], [place], [address], [facility] 3 11:28:51 Dementia 35417548 Active 2022 Estefanía Witt MD [address], [address], [place], [address], [place] [facility] 3 15:58:50 Urinary tract infectious disease 15354178 Active 2023 RASHAWN WAGGONER [address], [address], [place], [address], [facility] [employer] [facility] 4 20:24:56 Traumatic hematuria 50870467 Active 2023 RASHAWN WAGGONER [address], [address], [place], [address], [facility] [employer] [facility] 4 20:56:51 Essential hypertensio n 60480377 Active 2023 NADIRA BROOKS, SPOILAGE WORKER [address], [address], [place], [address], [facility] [employer] [facility] 4 21:01:00 Nutritional disorder 3097427 Active 2023 RASHAWN WAGGONER [address], [address], [place], [address], [facility] 4 21:02:35 Adult failure to thrive syndrome 382068379 Active 2023 Estefanía Witt MD [address], [address], [place], [address], [facility] 4 21:38:36 Bradycardia 67535677 Active 2023 RASHAWN WAGGONER [address], [address], [place], [address], [facility] 4 14:06:56 Acute kidney injury 14932148 Active 2023 RASHAWN WAGGONER [address], [address], [place], [address], [facility] 4 14:06:59 Aspiration pneumonia 010385825 Active 2023 RASHAWN WAGGONER [address], [address], [place], [address], [facility] 4 14:07:05 Gastrointes tinal hemorrhage 08567010 Active 2023 RASHAWN WAGGONER [address], [address], [place], [address], [facility] 4 14:07:15 Ulcerative esophagitis 712214576 Active 2023 RASHAWN WAGGONER [address] [facility], [address], [place], [address], [facility] 4 15:56:54 Umair hematuria 509952712 Active 2023 RASHAWN WAGGONER [address] [facility], [address], [place], [address], [facility] 4 15:56:56 Recurrent urinary tract infection 159686297 Active 2024 Rajesh Son MD [address] [facility], [address], [place], [address], [facility] 5 11:53:04 Problem Notes None recorded. Medical Equipment None Reported. Allergies No known drug allergies Medications Not known to be on any medication Vitals Date Recorded Body height Heart rate Respiratory rate Body temperature Oxygen saturation Oxygen saturation in Arterial blood by Pulse oximetry Systolic blood pressure Diastolic blood pressure Provider Name and Address Organization Details Last Updated DateTime 5 157.48 cm 57 /min 18 /min 97.3 [degF] 95 % 95 % 114 mm[Hg] 72 mm[Hg] RASHAWN WAGGONER [address] [facility], [address], [place], [address], [facility] 5 08:46:05 Date Recorded Body height Systolic blood pressure Diastolic blood pressure Provider Name and Address Organization Details Last Updated DateTime 10/04/2024 157.48 cm 113 mm[Hg] 69 mm[Hg] Rajesh Son MD [address] [facility] [facility] [facility], [address], [place], [address], [facility] 10/04/2024 11:49:04 Date Recorded Body height Provider Name an d Address Organization Details Last Updated DateTime 06/15/2024 157.48 cm RASHAWN WAGGONER [address] [facility] [address] [facility], [address], [place], [address], [facility] 06/15/2024 09:44:54 Date Recorded Body height Provider Name an d Address Organization Details Last Updated DateTime 06/26/2024 157.48 cm RASHAWN WAGGONER [address], [address], [place], [address], [facility] 06/26/2024 13:14:24 Social History Question Answer Notes LastModified by Organizat ion Details LastModified Time Tobacco Smoking Status Never Smoker Estefanía Witt MD [address], [address], [place], [address], [facility] 01/20/2022 16:47:58 Do You Have An Advance Directive? No Assumed Full Code Information not available 01/16/2022 What Is Your Code Status? Full Code Information not available 01/16/2022 Where Do You Live? [facility] [place] Information not available 06/11/2023 Legal Guardian? Yes Informati on not available 01/20/2022 Do You Have A Medical Power Of Security Alarm Technician? Yes Guardian, Alecia Isabel Information not available [...] Immunizations Vaccine Type Date Status Note Provider Steve her and Address Organization Details Recorded Time COVID-19, mRNA, LNP-S, PF, 30 mcg/0.3 mL dose 05/14/2021 completed Soumya yañez [facility] 04/17/2022 15:49:57 COVID-19, mRNA, LNP-S, PF, 30 mcg/0.3 mL dose 11/21/2020 [facility] 15:50:05 COVID-19, mRNA, LNP-S, PF, 30 mcg/0.3 mL dose 11/04/2021 completed Soumya [facility] 04/17/2022 15:50:17 COVID-19, mRNA, LNP-S, PF, 30 mcg/0.3 mL dose 04/16/2022 completed Soumya Lawler [facility] 04/17/2022 15:50:25 Influenza, adjuvanted, quadrivalent, PF 05/18/2022 completed Netta Matthew [facility] 07/22/2023 10:59:51 Influenza, adjuvanted, quadrivalent, PF 02/10/2023 completed Netta Matthew [facility] 07/22/2023 11:00:07 Past Encounters Encounter ID Performer Location Encounter Start Date Encounter Closed Date Diagnosis/Indication Diagnosis SNOMED-CT Code Diagnosis ICD10 Code Diagnosis Note [id number] AUDI CAPONE [address] [facility] [place] [address] 01/16/2022 09:17:04 01/20/2022 14:19:48 Vascular dementia 357972729 F01.50 remeron 15 mg hspsych prnchart and monitor any changes in mood or behaviors Atrial fibrillation 4943 6004 I48.91 cardizem 120 mg dailyeliqu is 5 mg bidmonitor heart rate Benign pro static hyperplasia 283270959 N40.1 ornelas cathflomax 0.8 mg dailyfinas teride 5 mg daily Gastroesop hageal reflux disease without esophagitis 110255521 K21.9 pepcid 20 mg daily Constipation 00639882 K5 9.00 senna plus 2 tabs bid [place] 567871493 R29.6 PT OT eval and treatfall precaution sfrequent safety checks [id number] MARK SCHROEDER NP [address] [address] 01/19/2022 14:12:01 01/23/2022 17:01:11 Acute urinary tract infection 271191408 N39.0 cephalexin 500 mg qid x10 daysmonito r for symptoms Benign pro static hyperplasia 991882090 N40.1 ornelas cathflomax 0.8 mg dailyfinas teride 5 mg daily [id number] Estefanía Witt MD [address] [address] 01/20/2022 11:55:23 01/28/2022 16:12:54 Acute urinary tract infection 429061549 N30.01 U/A reportedly + in ED (report not available. Continue cephalexin 500 mg QID x10 days (pending cx)Will get copies of U/A and cx from [facility].Monito r for sxs. Benign pro static hyperplasia 568746998 N40.1 Continue ornelas cathContin ue tamsulosin 0.8 mg qd and finasterid e 5 mg qd.Getting f/u appt with uro. Vascular dementia 077971 004 F01.50 Suspect some element of EtOHic [...] risk. Gastroesop hageal reflux disease without esophagitis 864060821 K21.9 No current sxs.Contin ue famotidine 20 mg qd. Constipation 53113534 K5 9.09 Continue senna plus 2 tabs BID.Monito r bowel function. [place] 930784149 R29.6 As above. Umair hematuria 20581152 5 R31.0 Unclear if from UTI vs. traumatic, vs combinatio n of the 2.Clear now.Monito r Asthenia 21333116 R53.1 Very deconditio jen.Needs PT/OT for strengthen ing, balance, gait training, safety and function.C ontinue fall precaution s.Monitor for safety. [id number] MARK SCHROEDER NP [address] [address] 01/22/2022 12:51:54 01/28/2022 19:53:28 Acute urinary tract infection 834252077 N30.01 recoveredc ephalexin 500 mg qid x10 daysmonito r for symptoms Benign pro static hyperplasia 866856528 N40.1 ornelas cathflomax 0.8 mg dailyfinas teride 5 mg daily Asthenia 57795876 R53.1 PT OT eval and treatfall precaution sfrequent safety checks [id number] MARK SCHROEDER NP [address] [address] 01/26/2022 13:15:39 01/29/2022 09:29:27 Acute urinary tract infection 787868378 N30.01 macobid 100mg bid to 01/29monito r for symptoms Benign pro static hyperplasia 341267963 N40.1 ornelas cathflomax 0.8 mg dailyfinas teride 5 mg dailyurolo gy consult [id number] MARK SCHROEDER NP [address] [address] 01/30/2022 12:08:30 02/13/2022 16:22:20 Acute urinary tract infection 716800582 N30.01 macobid 100mg bid to 01/29monito r for symptoms Benign pro static hyperplasia 477684376 N40.1 ornelas cathflomax 0.8 mg dailyfinas teride 5 mg dailyurolo gy consult Vascular dementia 309125 004 F01.50 remeron 15 mg hspsych prnchart and monitor any changes in mood or behaviors [id number] MARK SCHROEDER NP [address] [address] 02/04/2022 12:45:15 02/16/2022 20:39:21 Benign prostatic hyperplasia 634894246 N40.1 ornelas cathflomax 0.8 mg dailyfinas teride 5 mg dailyurolo gy consult Vascular dementia 261152 004 F01.50 remeron 15 mg hspsych prnchart and monitor any changes in mood or behaviors [id number] MARK AUDI SCHROEDER [address] [address] 02/11/2022 12:58:05 02/17/2022 16:07:34 Benign prostatic hyperplasia 853472813 N40.1 ornelas cathflomax 0.8 mg dailyfinas teride 5 mg dailyurolo gy consult Vascular dementia 085999 004 F01.50 remeron 15 mg hspsych prnchart and monitor any changes in mood or behaviors Atrial fibrillation 4943 6004 I48.91 cardizem 120 mg dailyeliqu is 5 mg bidmonitor heart rate Gastroesop hageal reflux disease without esophagitis 409666613 K21.9 pepcid 20 mg daily Constipation 68565422 K5 9.00 senna plus 2 tabs bid [place] 057678097 R29.6 PT OT eval and treatfall precaution sfrequent safety checks [id number] MARK SCHROEDER NP [address] [address] 02/18/2022 11:43:57 02/26/2022 11:37:51 Benign prostatic hyperplasia 004486660 N40.1 ornelas cath-will be chronic due to failed voiding trialfloma x 0.8 mg dailyfinas teride 5 mg dailyurolo gy consult Vascular dementia 682638 004 F01.50 remeron 15 mg hspsych prnchart and monitor any changes in mood or behaviors Asthenia 38809816 R53.1 PT OT eval and treatfall precaution sfrequent safety checks [id number] MARK AUDI SCHROEDER [address] [address] 02/26/2022 12:48:09 03/04/2022 15:36:11 Vascular dementia 586433884 F01.50 remeron 15 mg hspsych prnchart and monitor any changes in mood or behaviors Benign pro static hyperplasia 450471723 N40.1 ornelas cath-will be chronic due to failed voiding trialfloma x 0.8 mg dailyfinas teride 5 mg dailyurolo gy consult [id number] Patsy Waite MD [address] [address] 03/13/2022 08:12:36 03/17/2022 14:45:27 Asthenia 28280651 R53.1 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 monitor and support as needed Vascular dementia 354726 004 F01.50 expect declinewil l monitor and support as needed Gastroesop hageal reflux disease without esophagitis 227322739 K21.9 famotidine 20 mg bidwill monitor Benign pro static hyperplasia 632196306 N40.1 Ornelas catheterfu urologyfin asteride 5 mg dailytamsu losin 0.8 mg dailywill monitor Atrial fibrillation 4943 6004 I48.0 apixaban 5 mg biddiltiaz em ER 120 mg daily for rate controlwil l monitor 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 mirtazapin e 15 mg dailywill monitor Cobalamin deficiency 190 584638 E53.8 B12 1000 mcg dailywill monitor [id number] MARK SCHROEDER NP [address] [address] 04/03/2022 11:19:01 04/07/2022 14:04:53 Asthenia 20122075 R53.1 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 monitor and support as needed Vascular dementia 516944 004 F01.50 expect declinewil l monitor and support as neededguar kev in place Gastroesop hageal reflux disease without esophagitis 197922674 K21.9 famotidine 20 mg bidwill monitor Benign pro static hyperplasia 511806963 N40.1 Ornelas catheterf/ u urologyfin asteride 5 mg dailytamsu losin 0.8 mg dailywill monitor Atrial fibrillation 4943 6004 I48.0 apixaban 5 mg biddiltiaz em ER 120 mg daily for rate controlwil l monitor Mixed anxi ety and depressive disorder 741015845 F41.8 mirtazapin e 15 mg dailywill monitor Cobalamin deficiency 190 447147 E53.8 B12 1000 mcg dailywill monitor [id number] MARK SCHROEDER NP [address] [address] 04/17/2022 10:06:54 04/21/2022 15:17:37 Fever 891167507 R50.9 ua, covid swab negative, cbc, cmp, blood culturemon itor for response to tylenol [id number] Patsy Waite MD [address] [address] 06/12/2022 06:14:20 06/16/2022 15:35:15 Vascular dementia 195587814 F01.50 expect declinewil l monitor and support as needed Benign pro static hyperplasia 717941809 N40.1 Ornelas catheterfu urologyfin asteride 5 mg dailytamsu losin 0.8 mg dailywill monitor Atrial fibrillation 4943 6004 I48.0 apixaban 2.5 mg biddiltiaz em ER 120 mg daily for rate controlwil l monitor Cobalamin deficiency 190 996992 E53.8 B12 1000 mcg dailywill monitor Mixed anxi ety and depressive disorder 587401879 F41.8 mirtazapin e 15 mg dailywill monitor [id number] MARK SCHROEDER NP [address] [address] 06/29/2022 10:38:59 07/10/2022 13:14:29 COVID-19 191395715 U07.1 06/26 covid positiveen courage po intakecons ider ivf for anorexiaco nsider paxlovid or decadron for symptomsse nd to ED for decompensa tion [id number] MARK SCHROEDER NP [address] [address] 07/01/2022 11:29:19 07/10/2022 13:46:41 COVID-19 538712938 U07.1 06/26 covid positiveen courage po intakecons ider ivf for anorexiaco nsider paxlovid or decadron for symptomsse nd to ED for decompensa tion [id number] MARK SCHROEDER NP [address] [address] 07/02/2022 12:52:16 07/10/2022 14:18:58 COVID-19 840607036 U07.1 06/26 covid positiveen courage po intakecons ider ivf for anorexiaco nsider paxlovid or decadron for symptomsse nd to ED for decompensa tion [id number] MARK SCHROEDER NP STANISLAV CHEN [address] [place] [address] 07/03/2022 11:19:45 07/10/2022 14:49:59 COVID-19 861211730 U07.1 06/26 covid positiveen courage po intakecons ider ivf for anorexiaco nsider paxlovid or decadron for symptomsse nd to ED for decompensa tion [id number] MARK SCHROEDER NP STANISLAV PARIL [address] [place] [address] 07/06/2022 13:44:51 07/10/2022 15:22:57 COVID-19 371234571 U07.1 06/26 covid positive-a symptomati c, recovered by dateencour age po intakecons ider ivf for anorexiaco nsider paxlovid or decadron for symptomsse nd to ED for decompensa tion MARK SCHROEDER NP STANISLAV APRIL [address] [place] [address] 08/03/2022 12:47:40 08/05/2022 13:54:59 Acute urinary tract infection 041518675 N30.01 cefuroxime 250 mg bid x7 days 2/8monitor for symptoms MARK SCHROEDER NP [facility] APR[facility] [address] [place] [address] 08/13/2022 08:31:00 08/17/2022 14:54:18 Bacteremia 5079893 R78.81 vanco 1250 mg iv daily to 3/1monitor for symptoms Vascular dementia 087060 004 F01.50 expect declinewil l monitor and support as needed Benign pro static hyperplasia 623884588 N40.1 Ornelas catheterf/ u urologyfin asteride 5 mg dailytamsu losin 0.8 mg dailywill monitor Atrial fibrillation 4943 6004 I48.0 apixaban 2.5 mg biddiltiaz em ER 120 mg daily for rate controlwil l monitor Cobalamin deficiency 190 208624 E53.8 B12 1000 mcg dailywill monitor Mixed anxi ety and depressive disorder 019974562 F41.8 mirtazapin e 15 mg dailywill monitor Gastroesop hageal reflux disease without esophagitis 575188057 K21.9 famotidine 20 mg bidwill monitor [place] 775977904 R29.6 PT OT eval and treatfall precaution sfrequent safety checks [id number] MARK SCHROEDER NP [address] [address] 08/17/2022 15:26:00 08/19/2022 10:15:46 Bacteremia 6453381 R78.81 vanco 1250 mg iv daily to 3/1monitor for symptoms Acute urin maciej tract infection 685828728 N30.01 good ornelas caremonito r for symptoms [id number] MARK SCHROEDER NP [address] [address] 08/19/2022 10:54:09 08/25/2022 10:12:15 Bacteremia 2940639 R78.81 vanco 1250 mg iv daily to 3/1monitor for symptoms Vascular dementia 183164 004 F01.50 expect declinewil l monitor and support as needed Benign pro static hyperplasia 621132650 N40.1 Ornelas catheterf/ u urologyfin asteride 5 mg dailytamsu losin 0.8 mg dailywill monitor Atrial fibrillation 4943 6004 I48.0 apixaban 2.5 mg biddiltiaz em ER 120 mg daily for rate controlwil l monitor Cobalamin deficiency 190 174246 E53.8 B12 1000 mcg dailywill monitor Mixed anxi ety and depressive disorder 963090801 F41.8 mirtazapin e 15 mg dailywill monitor Gastroesop hageal reflux disease without esophagitis 014484364 K21.9 famotidine 20 mg bidwill monitor [place] 217138957 R29.6 PT OT eval and treatfall precaution sfrequent safety checks [id number] MARK SCHROEDER NP [address] [address] 08/27/2022 11:24:35 09/01/2022 07:22:03 Bacteremia 2112854 R78.81 vanco 1250 mg iv daily to 3/1monitor for symptoms Benign pro static hyperplasia 223851431 N40.1 Ornelas catheterf/ u urologyfin asteride 5 mg dailytamsu losin 0.8 mg dailywill monitor [id number] MARK SCHROEDER CAFET[employer]IA WORK[employer] [facility] [address] [place] [address] 09/01/2022 12:54:58 09/03/2022 12:37:02 Bacteremia 3670473 R78.81 vanco 1250 mg iv daily to 3/1monitor for symptoms Benign pro static hyperplasia 442874947 N40.1 Ornelas catheterf/ u urologyfin asteride 5 mg dailytamsu losin 0.8 mg dailywill monitor [id number] MARK AUDI SCHROEDER [facility] [address] [place] [address] 09/10/2022 12:26:40 09/16/2022 14:16:46 Pain of right shoulder joint 7580661333 9222913 M25.511 xrays showed rotator cuff injury/tea rortho consult [id number] Patsy Waite MD [address] [address] 10/14/2022 06:36:11 10/20/2022 11:20:30 Vascular dementia 283155737 F01.50 expect declinewil l monitor and support as needed Atrial fibrillation 4943 6004 I48.0 apixaban 2.5 mg biddiltiaz em ER 120 mg daily for rate controlwil l monitor Pain of ri ght shoulder joint 5139022364 4291838 M25.511 diclofenac gel bidAPAP 650 mg q6h prnPT/OT prnawait ortho consultati onwill monitor Benign pro static hyperplasia 035248953 N40.1 Ornelas catheterfu urologyfin asteride 5 mg dailytamsu losin 0.8 mg dailywill monitor Gastroesop hageal reflux disease without esophagitis 524826678 K21.9 famotidine 20 mg bidwill monitor Cobalamin deficiency 190 073558 E53.8 B12 1000 mcg dailywill monitor Mixed anxi ety and depressive disorder 893615022 F41.8 mirtazapin e 15 mg dailywill monitor [id number] MARK GARAYANGELITO CAFET[employer]IA WORKER [address] [address] 12/04/2022 11:16:37 12/10/2022 12:55:03 Vascular dementia 989652920 F01.50 expect declinewil l monitor and support as needed Atrial fibrillation 4943 6004 I48.0 apixaban 2.5 mg biddiltiaz em ER 120 mg daily for rate controlwil l monitor Pain of ri ght shoulder joint 2203251171 2013799 M25.511 diclofenac gel bidAPAP 650 mg q6h prnPT/OT prnawait ortho consultati onwill monitor Benign pro static hyperplasia 368333167 N40.1 Ornelas catheterf/ u urologyfin asteride 5 mg dailytamsu losin 0.8 mg dailywill monitor Gastroesop hageal reflux disease without esophagitis 566542884 K21.9 famotidine 20 mg bidwill monitor Cobalamin deficiency 190 991771 E53.8 B12 1000 mcg dailywill monitor Mixed anxi ety and depressive disorder 893415519 F41.8 mirtazapin e 15 mg dailywill monitor [id number] MARK SCHROEDER NP [address] [address] 01/27/2023 14:41:48 01/29/2023 16:16:55 Vascular dementia 765294034 F01.50 expect declinewil l monitor and support as needed Atrial fibrillation 4943 6004 I48.0 apixaban 2.5 mg biddiltiaz em ER 120 mg daily for rate controlwil l monitor Pain of ri ght shoulder joint 9230083873 5047137 M25.511 diclofenac gel bidAPAP 650 mg q6h prnPT/OT prnawait ortho consultati onwill monitor Benign pro static hyperplasia 717152228 N40.1 Ornelas catheterf/ u urologyfin asteride 5 mg dailytamsu losin 0.8 mg dailywill monitor Gastroesop hageal reflux disease without esophagitis 557194238 K21.9 famotidine 20 mg bidwill monitor Cobalamin deficiency 190 300793 E53.8 B12 1000 mcg dailywill monitor Mixed anxi ety and depressive disorder 399850518 F41.8 mirtazapin e 15 mg dailywill monitor Asthenia 68664585 R53.1 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 monitor and support as needed [place] 964926942 R29.6 PT OT eval and treatfall precaution sfrequent safety checks [id number] MD STANISLAV Munoz [address] [place] [address] rd [place] [address] 02/22/2023 12:39:11 02/24/2023 13:44:41 Sepsis caused by Escherichia coli 610872801 A41.51 To complete course of abx with cefuroxime 500 mg BID until 03/05 (14 day course).Wi ll add probiotic BID for 14 more days.Monit or sxs. Acute urin maciej tract infection 001736645 N30.01 As above. Chronic re tention of urine 878140814 R33.8 Continue chronic ornelas, change every 30 days.F/U with uro prn. Benign pro static hyperplasia with outflow obstruction 438179091 N40.1 As above.Cont inue tamsulosin 0.8 mg qd and finasterid e 5 mg qd.F/U with uro Atrial fibrillation 4943 6004 I48.0 Rate in good control on diltiazem ER 120 mg qdContinue eliquis 2.5 mg BID for AC.Monitor HR and bleeding risk. Pain of ri ght shoulder joint 0132397964 3088635 M25.511 Continue APAP 650 mg q 6 hr prnWill use OT as ableAwaiti ng ortho consultati onMonitor Gastroesop hageal reflux disease without esophagitis 247716143 K21.9 No current sxs.Contin ue famotidine 20 mg BIDMonitor sxs Cobalamin deficiency 190 658441 E53.8 Continue vitamin B12 1000 mcg qdNo recent level, will check with tomorrow's labs, then yearly Mixed anxi ety and depressive disorder 284900458 F41.8 As above. Asthenia 93371234 R53.1 Is deconditio jen from recent illness.Ne eds PT/OT for strengthen ing, balance, gait training, safety and function.C ontinue fall precaution s.Monitor for safety. Dementia 68730715 F02.B3 Likely multifacto rial with vascular and EtOH components .Continues at baselineCo ntinue mirtazapin e 15 mg qdContinue supportive care, expect decline.Vega charisse guardianMo nitor mood and behaviors. Psych follows. [id number] MARK SCHROEDER NP [address] [address] 03/03/2023 11:23:38 03/05/2023 15:37:10 Sepsis caused by Escherichia coli 581299211 A41.51 To complete course of abx with cefuroxime 500 mg BID until 03/05 (14 day course). Will add probiotic BID for 14 more days. Monitor sxs. Acute urin maciej tract infection 535919273 N30.01 cefuroxime 500 mg bid to ood ornelas caremonito r for symptoms [id number] MARK SCHROEDER NP [address] [address] 04/14/2023 11:08:09 04/16/2023 08:47:29 Vascular dementia 523802279 F01.50 expect declinewil l monitor and support as needed Atrial fibrillation 4943 6004 I48.0 apixaban 2.5 mg biddiltiaz em ER 120 mg daily for rate controlwil l monitor Pain of ri ght shoulder joint [id number] 5625162 M25.511 diclofenac gel bidAPAP 650 mg q6h prnPT/OT prnawait ortho consultati onwill monitor Benign pro static hyperplasia 014578887 N40.1 Ornelas catheterf/ u urologyfin asteride 5 mg dailytamsu losin 0.8 mg dailywill monitor Gastroesop hageal reflux disease without esophagitis 707121882 K21.9 famotidine 20 mg bidwill monitor Cobalamin deficiency 190 560859 E53.8 B12 1000 mcg dailywill monitor Mixed anxi ety and depressive disorder 994736958 F41.8 mirtazapin e 15 mg dailywill monitor Asthenia 47831598 R53.1 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 monitor and support as needed Falls 085161768 R29.6 PT OT eval and treatfall precaution sfrequent safety checks [id number] Estefanía Witt MD [facility] [address] [place] [phone] 5 06/11/2023 15:07:43 06/15/2023 19:26:06 Chronic retention of urine 021704796 R33.8 No recent issuesCont inue chronic ornelas, change every 30 days.F/U with uro prn. Benign pro static hyperplasia with outflow obstruction 975399334 N40.1 As above.Cont inue tamsulosin 0.8 mg qd and finasterid e 5 mg qd.F/U with uro Dementia 59377510 F02.B3 Continues at baselineCo ntinue mirtazapin e 15 mg qdContinue supportive care, expect decline.Vega s guardian, needs updated guardiansh ip papers scanned into [facility].Monito r mood and behaviors. Psych follows. Mixed anxi ety and depressive disorder 057541162 F41.8 As above. Atrial fibrillation 4943 6004 I48.0 Rate remains in good control on diltiazem ER 120 mg qdContinue eliquis 2.5 mg BID for AC.Monitor HR and bleeding risk. Gastroesop hageal reflux disease without esophagitis 689249853 K21.9 No current sxs.Contin ue famotidine 20 mg BIDMonitor sxs [id number] MARK SCHROEDER NP [address] [place] [address] 06/16/2023 14:19:39 06/23/2023 18:09:18 Acute urinary tract infection 683475636 N30.01 levofloxin 750 mg qod x6 dosesgood ornelas caremonito r for symptoms Vascular dementia 183079 004 F01.50 expect declinewil l monitor and support as needed Atrial fibrillation 4943 6004 I48.0 apixaban 2.5 mg biddiltiaz em ER 120 mg daily for rate controlwil l monitor Pain of ri ght shoulder joint 0535290815 0940862 M25.511 diclofenac gel bidAPAP 650 mg q6h prnPT/OT prnawait ortho consultati onwill monitor Benign pro static hyperplasia 466729932 N40.1 Ornelas catheterf/ u urologyfin asteride 5 mg dailytamsu losin 0.8 mg dailywill monitor Gastroesop hageal reflux disease without esophagitis 195585918 K21.9 famotidine 20 mg bidwill monitor Cobalamin deficiency 190 138988 E53.8 B12 1000 mcg dailywill monitor Mixed anxi ety and depressive disorder 198531401 F41.8 mirtazapin e 15 mg dailywill monitor Asthenia 16074532 R53.1 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 monitor and support as needed [place] 155787234 R29.6 PT OT eval and treatfall precaution sfrequent safety checks [id number] MARK SCHROEDER NP [address] [address] 06/21/2023 13:07:48 06/23/2023 18:53:43 Acute urinary tract infection 059441652 N30.01 levofloxin 750 mg qod x6 dosesgood ornelas caremonito r for symptoms Vascular dementia 252441 004 F01.50 expect declinewil l monitor and support as needed [place] 656379577 R29.6 PT OT eval and treatfall precaution sfrequent safety checks [id number] MARK SCHROEDER NP [address] [address] 06/30/2023 10:16:19 07/13/2023 09:45:01 Acute urinary tract infection 056557510 N30.01 levofloxin 750 mg qod x6 doses-comp letedgood ornelas caremonito r for symptoms Benign pro static hyperplasia 012280023 N40.1 Ornelas catheterf/ u urologyfin asteride 5 mg dailytamsu losin 0.8 mg dailywill monitor [id number] Gail Jose Ramon Pennington [address] [address] 08/20/2023 10:35:03 08/31/2023 10:01:42 Benign prostatic hyperplasia 818660331 N40.1 continue with chronic ornelas, change monthly and prncontinu e finasterid e 5mg dailyfollo wed by urology Acute urin maciej tract infection 516408865 N30.01 last UTI in hospital 06/13/23 tx with levoquinco ntinue vit c 500mg BID UTI procontinu e D-mannose 1g BID UTI promonitor , change ornelas monthly Atrial fibrillation 4943 6004 I48.0 chronic, stable. RCcontinue diltiazem 120mg dailyeliqu is 2.5mg BID Cobalamin deficiency 190 515343 E53.8 chronic stablecont inue supplement [id number] RASHAWN WAGGONER [address] [address] 09/13/2023 11:11:07 09/15/2023 09:51:03 Herpes zoster 3811392 B02.9 valacyclov ir 1000 mg q12 for 5 daysgabape ntin 300 mg q 6 prn for 5 daysbenadr yl 25 mg q6 hours for pruritis prntylenol 650 mg prn for discomfort .monitor for worsening sx , nursing to update provider with changesmon itor VS qshiftplac e on precaution s per facility protocol.p t to wear loose clothing [id number] RASHAWN WAGGONER [address] [address] 09/27/2023 12:16:45 09/30/2023 12:31:03 Acute urinary tract infection 651906235 N30.01 with acute encephalop athytx with IV linezolid d/t renal function and ceftriaxon edischarge d to facility on Cefuroxime 500 MG BID until 4/1Linezol id 600 MG BID until 4 Traumatic hematuria 9556 7008 R31.9 tx with [facility]; now resolved Herpes zoster 2788488 B0 2.9 dx with shinglesva lacyclovir 1000 mg q12 for 5 daysgabape ntin 300 mg q 6 prn for 5 daysbenadr yl 25 mg q6 hours for pruritis prntylenol 650 mg prn for discomfort .monitor for worsening sx , nursing to update provider with changesmon itor VS qshiftplac e on precaution s per facility protocol. Essential hypertension 92673772 I10 diltiazem 120 mg dailymonit or BP Benign pro static hyperplasia 339208309 N40.1 chronic ornelas catheterco ntinue finasterid e and flomax Atrial fibrillation 4943 6004 I48.0 continue eliquiscon tinue cardizemmo nitor HR Nutritional disorder 249 2008 E44.0 underweigh t 15.7nutrit ional supplement s TID with mealsmonit or monthly weights Acute kidney injury 1466 9001 N17.9 resolved [id number] RASHAWN WAGGONER [address] [address] 09/30/2023 09:22:37 10/05/2023 11:35:15 Acute urinary tract infection 813677677 N30.01 with acute encephalop athytx with IV linezolid d/t renal function and ceftriaxon edischarge d to facility on Cefuroxime 500 MG BID until inezol id 600 MG BID until 10/03 Herpes zoster 8823089 B0 2.9 dx with shinglesva lacyclovir 1000 mg q12 for 5 days-compl etedgabape ntin 300 mg q 6 prn for 5 days -completed benadryl 25 mg q6 hours for pruritis prntylenol 650 mg prn for discomfort .monitor for worsening sx , nursing to update provider with changesmon itor VS qshiftplac e on precaution s per facility protocol. Essential hypertension 35243773 I10 diltiazem 120 mg dailymonit or BP Benign pro static hyperplasia 044684164 N40.1 chronic ornelas catheterco ntinue finasterid e and flomax Atrial fibrillation 4943 6004 I48.0 continue eliquiscon tinue cardizemmo nitor HR Nutritional disorder 249 2008 E44.0 underweigh t 15.7nutrit ional supplement s TID with mealsmonit or monthly weights [id number] RASHAWN WAGGONER [address] [address] 10/07/2023 10:51:23 10/11/2023 14:34:12 Acute urinary tract infection 154813908 N30.01 abx completed 10/04/23 Herpes zoster 6696664 B0 2.9 dx with shinglesan tiviral completed. Essential hypertension 80811041 I10 diltiazem 120 mg dailymonit or BP Benign pro static hyperplasia 623423111 N40.1 chronic ornelas catheterco ntinue finasterid e and flomax Atrial fibrillation 4943 6004 I48.0 continue eliquiscon tinue cardizemmo nitor HR Nutritional disorder 249 2008 E44.0 will order weight time 3 days at 6am for accuracy.u nderweight 15.7nutrit ional supplement s TID with mealsmonit or monthly weights [id number] RASHAWN WAGGONER [address] [address] 10/12/2023 08:24:59 10/25/2023 13:43:58 Acute urinary tract infection 801890085 N30.01 abx completed 10/04/23 Herpes zoster 8052212 B0 2.9 rash resolving, no open areasblist er healed, skin redness continues. antiviral completed. Essential hypertension 19904495 I10 diltiazem 120 mg dailymonit or BP Benign pro static hyperplasia 188134631 N40.1 chronic ornelas catheterco ntinue finasterid e and flomax Nutritional disorder 249 2008 E44.0 appetite wax and wanesnoted with> than 10 lbs weight lossnursin g to encourage supplement al shakes .underweig ht 15.7nutrit ional supplement s TID with mealsmonit or monthly weights [id number] RASHAWN WAGGONER [address] [address] 10/19/2023 10:54:51 10/26/2023 11:03:11 Acute urinary tract infection 742100393 N30.01 resolved Herpes zoster 1830606 B0 2.9 resolved Essential hypertension 42799865 I10 diltiazem 120 mg dailymonit or BP Benign pro static hyperplasia 944517117 N40.1 chronic ornelas catheterco ntinue finasterid e and flomax Nutritional disorder 249 2009 E44.0 appetite wax and wanesbette r today, noted eating breakfast. noted with> than 10 lbs weight lossnursin g to encourage supplement al shakes .underweig ht 15.7nutrit ional supplement s TID with mealsmonit or monthly weights [id number] Estefanía Witt MD [address] [address] 10/22/2023 18:41:41 12/13/2023 13:58:00 Adult failure to thrive syndrome 899609250 R62.7 With marked wt. loss.Will add ensure/reyna st 8 oz BID and get architectural design professor consult.Al ready on mirtazapin e 15 mg qd.Monitor wts Dementia 23947887 F02.B3 Continues at baselineCo ntinue mirtazapin e 15 mg qdContinue supportive care, expect decline.Vega s guardian.M onitor mood and behaviors. Psych follows. Chronic re tention of urine 319667741 R33.8 No recent issuesCont inue chronic ornelas, change every 30 days.F/U with uro prn. Benign pro static hyperplasia with outflow obstruction 660481219 N40.1 As above.Cont inue tamsulosin 0.8 mg qd and finasterid e 5 mg qd.F/U with uro Mixed anxi ety and depressive disorder 761007942 F41.8 As above. Atrial fibrillation 4943 6004 I48.0 Rate remains in good control on diltiazem ER 120 mg qdContinue eliquis 2.5 mg BID for AC.Monitor HR and bleeding risk. Gastroesop hageal reflux disease without esophagitis 923850771 K21.9 No current sxs.Contin ue famotidine 20 mg BIDMonitor sxs [id number] RASHAWN WAGGONER [facility] [address] [place] [phone] 10/27/2023 09:18:00 11/02/2023 14:04:27 Essential hypertension 63703047 I10 diltiazem 120 mg dailymonit or BP Benign pro static hyperplasia 605438799 N40.1 chronic ornelas catheterco ntinue finasterid e and flomax Nutritional disorder 249 2009 E44.0 appetite wax and wanesnoted with> than 10 lbs weight lossnursin g to encourage supplement al shakes .underweig ht 15.7nutrit ional supplement s TID with mealsmonit or monthly weights Urinary tr act infectious disease 52895276 N39.0 Started on Methenamin e Hippurate 1 GM for preventati ve measures. [id number] RASHAWN WAGGONER [address] [address] 11/04/2023 09:11:34 11/09/2023 10:00:16 Essential hypertension 53527723 I10 diltiazem 120 mg dailymonit or BP Benign pro static hyperplasia 121775864 N40.1 chronic ornelas catheterco ntinue finasterid e and flomax Nutritional disorder 249 2009 E44.0 appetite wax and wanesnoted with> than 10 lbs weight lossnursin g to encourage supplement al shakes .underweig ht 15.7nutrit ional supplement s TID with mealsmonit or monthly weights Urinary tr act infectious disease 90592290 N39.0 Started on Methenamin e Hippurate 1 GM for preventati ve measures. [id number] RASHAWN WAGGONER [address] [address] 5 11/16/2023 08:30:13 11/22/2023 12:12:26 Urinary tract infectious disease 56009015 N39.0 Sepsis secondary to UTI due to chronic indwelling FoleyConti nue oral amoxicilli n and oral fluconazol e (end date both 11/21) for total of 14 day courseChan ge foleys every 3-4 weeks and use catheter secure Acute kidney injury 1466 9001 N17.9 DOUGLAS secondary to ATNresolve d. Blood in urine 22275430 R31.9 baseline he will present with hematuria in ornelas catheter.C hronic Ornelas in place.abril tor Atrial fibrillation 4943 6004 I48.0 continue eliquis 2.5 mg dailyconti nue cardizem- d/c in acute care due to bradycardi a, monitor need to restart.mo nitor HR Dementia 39604820 F02.B3 Continue mirtazapin e 15 mg qd Gastroesop hageal reflux disease without esophagitis 616506733 K21.9 Continue famotidine 20 mg BIDMonitor sxs Cobalamin deficiency 190 454372 E53.8 Ascorbic Acid 500 MG dailyCyano cobalamin 1000 mcg daily Benign pro static hyperplasia 764186780 N40.1 chronic ornelas catheterco ntinue finasterid e 5 mg daily [id number] RASHAWN WAGGONER [address] [address] 2023 11:24:22 11/26/2023 08:45:18 Urinary tract infectious disease 13402805 N39.0 antibiotic s completed. Sepsis secondary to [...] monitor need to restart.mo nitor HR Dementia 27662826 F02.B3 Continue mirtazapin e 15 mg qd Gastroesop hageal reflux disease without esophagitis 584685336 K21.9 Continue famotidine 20 mg BIDMonitor sxs [id number] NADIRA BROOKS[address] [address] 12/02/2023 09:46:58 12/07/2023 11:56:04 Urinary tract infectious disease 62564817 N39.0 antibiotic s completed. Change ornelas every 3-4 weeks and use catheter secure Atrial fibrillation 4943 6004 I48.0 continue eliquis 2.5 mg dailyconti nue cardizem- d/c in acute care due to bradycardi a, monitor need to restart.mo nitor HR 74 0n 12/01- has been stable 70-80s. Dementia 25347502 F02.B3 Continue mirtazapin e 15 mg qd Gastroesop hageal reflux disease without esophagitis 400787153 K21.9 Continue famotidine 20 mg BIDMonitor sxs [id number] NADIRA BROOKS [address] [address] 5 12/06/2023 12:48:19 12/07/2023 12:34:24 Atrial fibrillation 83578539 I48.0 continue eliquis 2.5 mg dailyconti nue cardizem- d/c in acute care due to bradycardi a, monitor need to restart.HR stable. denies any chest pain, SOB or palpitatio ns. Dementia 67762061 F02.B3 Continue mirtazapin e 15 mg qd Urethral u rinary catheter in situ for fdc use 1511799404 104 Z96.0 prone to frequent UTI; recently completed ABX.Ornelas patent and draining.C hange ornelas every 3-4 weeks and use catheter securenurs ing to do ornelas care twice daily encouraged . [id number] RASHAWN WAGGONER [address] [address] 12/14/2023 10:28:27 12/17/2023 08:36:28 Urinary tract infectious disease 60307962 N39.0 resolved Acute kidney injury 1466 9001 N17.9 DOUGLAS secondary to ATNresolve d. Blood in urine 55936945 R31.9 baseline he will present with hematuria in ornelas catheter.C hronic Ornelas in place.abril tor Atrial fibrillation 4943 6004 I48.0 continue eliquis 2.5 mg daily Dementia 43567217 F02.B3 Continue mirtazapin e 15 mg qd Gastroesop hageal reflux disease without esophagitis 707341284 K21.9 Continue famotidine 20 mg BID Cobalamin deficiency 190 829464 E53.8 Ascorbic Acid 500 MG dailyCyano cobalamin 1000 mcg daily Benign pro static hyperplasia 044716371 N40.1 chronic ornelas catheterco ntinue finasterid e 5 mg daily [id number] RASHAWN WAGGONER [address] [address] 12/28/2023 10:37:21 12/31/2023 14:58:13 Urinary tract infectious disease 89794856 N39.0 Cefuroxime 250 mg BID for 7 dayscontin ue Acidophilu s Oral Capsule daily. Benign pro static hyperplasia 530009585 N40.1 chronic ornelas catheter -patent and draining to gravity today.cont inue finasterid e 5 mg dailynursi ng to provide ornelas care per facility protocol qshift. [id number] RASHAWN WAGGONER [address] [address] 02/08/2024 12:48:44 02/09/2024 14:43:43 Dementia 04633422 F02.B3 noted with an agitation, hitting himself in the head, there is no injury.duncan sing able to redirect patient behavior, although he is redirectab le from self harm he continues to be noted with agitation. nursing reports that patient gets easily agitated with too environmen tabby stimuli.wi ll add trazodone 25 mg q 8 prn for anxiety for 14 days. [id number] RASHAWN WAGGONER [address] [address] 5 03/07/2024 11:27:24 03/09/2024 14:27:31 Dementia 06416837 F02.B3 with agitation and anxietyrec ently trial on 14 days trazadone with improvemen t with behaviors per nursing.re cently seen by psych with recommenda tions to schedule daily at hswill add trazadone 25 mg at hs and monitor effectiven ess. [id number] RASHAWN WAGGONER [address] [address] 03/13/2024 10:00:17 03/15/2024 10:09:29 Atrial fibrillation 89533038 I48.0 continue eliquis 2.5 mg daily Dementia 07718803 F02.B3 Continue mirtazapin e 15 mg qdrecently trial on 14 days trazadone with improvemen t with behaviors per nursing.no w on trazadone 25 mg at hs for anxiety with agitation Gastroesop hageal reflux disease without esophagitis 330067711 K21.9 Continue famotidine 20 mg BID Cobalamin deficiency 190 107175 E53.8 Ascorbic Acid 500 MG dailyCyano cobalamin 1000 mcg daily Benign pro static hyperplasia 813685974 N40.1 chronic ornelas catheterco ntinue finasterid e 5 mg daily [id number] RASHAWN WAGGONER [address] [address] 03/27/2024 10:56:25 03/28/2024 13:30:57 Atrial fibrillation 04356063 I48.0 continue eliquis 2.5 mg dailyno abn bleeding or bruisingoc c hematuria that resolves with irrigation . Dementia 12754938 F02.B3 Continue mirtazapin e 15 mg qdrecently trial on 14 days trazadone with improvemen t with behaviors per nursing.cn tinue trazadone 25 mg at hs for anxiety with agitation Gastroesop hageal reflux disease without esophagitis 106369714 K21.9 Continue famotidine 20 mg BIDno reported GI upset Cobalamin deficiency 190 785842 E53.8 Ascorbic Acid 500 MG dailyCyano cobalamin 1000 mcg daily Benign pro static hyperplasia 692662777 N40.1 chronic ornelas catheterco ntinue finasterid e 5 mg dailyPatie nt had planned procedure for plan suprapubic ornelas on 03/21- had to be reschedule d due to transporta tion. Adult fail ure to thrive syndrome 598121777 R62.7 02/25/24 ensures increased from BID to TIDof note patient noted with 6 lb weight gaincontin ue ensure/reyna st 8 oz TIDmirtaza pine 15 mg qd.Monitor wts [id number] RASHAWN WAGGONER [address] [address] 03/30/2024 11:03:41 03/31/2024 12:43:23 Benign prostatic hyperplasia 790392380 N40.1 chronic ornelas catheterco ntinue finasterid e 5 mg dailyPatie nt had planned procedure for plan suprapubic ornelas on 03/21- had to be reschedule d due to transporta tion. Retention of urine due to occlusion of Ornelas catheter 456294938 R33.8 see hpiHX of BPH, no coude catheter available to replaced current ornelas, patient previously sent to ED for ornelas replacemen t due to difficult insertion. will send to ED for evaluation [id number] RASHAWN WAGGONER [address] [address] 04/17/2024 11:47:14 04/18/2024 16:02:01 Benign prostatic hyperplasia 947428099 N40.1 now with suprapubic catheter -continue finasterid e 5 mg daily Dementia 02977987 F02.B3 can be impulsive, easily agitatedex pect declineCon tinue mirtazapin e 15 mg qdcontinue trazadone 25 mg at hs for anxiety with agitation Suprapubic urinary catheter in situ 168868750 Z96.0 monitor for sx of site infection update provider with changes.pa tent and drainingap ply abdominal binder to prevent accidental pulling out.change catheter tubing per urology recs. [id number] RASHAWN WAGGONER [address] [address] 04/20/2024 13:55:50 04/21/2024 11:40:27 Benign prostatic hyperplasia 467399272 N40.1 now with suprapubic catheter -continue finasterid e 5 mg daily Dementia 79407986 F02.B3 can be impulsive, easily agitatedex pect declineCon tinue mirtazapin e 15 mg qdcontinue trazadone 25 mg at hs for anxiety with agitation Suprapubic urinary catheter in situ 386041326 Z96.0 pt incidental ly pulled out stitch, there has been no concerns, site is clean and dry no drainagemo nitor for sx of site infection update provider with changes.pa tent and drainingap ply abdominal binder to prevent accidental pulling out.change catheter tubing per urology recs. [id number] RASHAWN WAGGONER [address] [address] 5 04/24/2024 08:37:53 04/26/2024 09:17:19 Benign prostatic hyperplasia 848399534 N40.1 now with suprapubic catheter -continue finasterid e 5 mg daily Dementia 24101433 F02.B3 stable today, mood pleasant .can be impulsive, easily agitatedex pect declineCon tinue mirtazapin e 15 mg qdcontinue trazadone 25 mg at hs for anxiety with agitation Suprapubic urinary catheter in situ 333638413 Z96.0 pt incidental ly pulled out stitch, there has been no concerns, site is clean and dry no drainagemo nitor for sx of site infection update provider with changes.pa tent and drainingap ply abdominal binder to prevent accidental pulling out.change catheter tubing per urology recs. [id number] RASHAWN WAGGONER [address] [address] 5 04/27/2024 11:14:21 05/01/2024 15:09:09 Benign prostatic hyperplasia 433687260 N40.1 now with suprapubic catheter -continue finasterid e 5 mg daily Dementia 90339165 F02.B3 stablecan be impulsive, easily agitatedex pect declineCon tinue mirtazapin e 15 mg qdcontinue trazadone 25 mg at hs for anxiety with agitation Suprapubic urinary catheter in situ 946651953 Z96.0 pt incidental ly pulled out stitch, there has been no concerns, site is clean and dry no drainagemo nitor for sx of site infection update provider with changes.pa tent and drainingap ply abdominal binder to prevent accidental pulling out.change catheter tubing per urology recs. Essential hypertension 42640574 I10 stabledilt iazem 120 mg dailymonit or BP [id number] RASHAWN WAGGONER [address] [address] 05/05/2024 12:40:01 05/08/2024 13:34:52 Benign prostatic hyperplasia 601511638 N40.1 now with suprapubic catheter -continue finasterid e 5 mg daily Dementia 54571151 F02.B3 stablecan be impulsive, easily agitatedex pect declineCon tinue mirtazapin e 15 mg qdcontinue trazadone 25 mg at hs for anxiety with agitation Suprapubic urinary catheter in situ 840294735 Z96.0 pt incidental ly pulled out stitch, there has been no concerns, site is clean and dry no drainagemo nitor for sx of site infection update provider with changes.pa tent and drainingap ply abdominal binder to prevent accidental pulling out.change catheter tubing per urology recs. Essential hypertension 21104473 I10 stabledilt iazem 120 mg dailymonit or BP [id number] RASHAWN WAGGONER [address] [address] 5 05/15/2024 12:19:47 05/31/2024 12:02:09 Benign prostatic hyperplasia 414692671 N40.1 now with suprapubic catheter -continue finasterid e 5 mg daily Dementia 47407897 F02.B3 stablecan be impulsive, easily agitatedex pect declineCon tinue mirtazapin e 15 mg qdcontinue trazadone 25 mg at hs for anxiety with agitation Suprapubic urinary catheter in situ 275496967 Z96.0 monitor for sx of site infection update provider with changes.pa tent and drainingab dominal binder to prevent accidental pulling out.change catheter tubing per urology recs. Essential hypertension 12377368 I10 stabledilt iazem 120 mg dailymonit or BP [id number] RASHAWN WAGGONER [address] [address] 05/29/2024 11:13:49 05/31/2024 12:05:16 Gastrointestinal hemorrhage 61904933 K92.2 see hpicontinu e sucralfate 1g for 14 days after mealsprilo sec 20 mg daily for 8 weeksconti nue pepcid 20 mg BIDavoid NSAIDavoid lying flat for 1 hour after eating- recommend OOB for meals Aspiration pneumonia 422 080816 J69.0 tx with IV zosyn in acute caredischa rge on augmentin BID for 5 daysavoid lying flat for 1 hour after eating- recommend OOB for meals Acute urin maciej tract infection 148005547 N30.01 Enterococc us faecalis.c ontinue Augmentinh igh risk for recurrent due to s/p ornelas Acute kidney injury 1466 9001 N17.9 Likely from renal hypoperfus ion/hypote nsion. noted with metabolic acidosisHX ATNavoid nephrotoxi c meds Bradycardia 90704788 R00 .1 see hpimonitor HRavoid beta blockers Umair hematuria 66584199 5 R31.0 noted with about 700 cc of dark red, dark cranberry colored urine can not see through in ornelas catheter tubing and bag.he is on eliquis BIDwill send to ED for evaluation due to significan t amount most likely will need irrigation . [id number] RASHAWN WAGGONER [address] [address] 06/05/2024 12:03:56 06/07/2024 11:45:22 Gastrointestinal hemorrhage 68244500 K92.2 no reported coffee ground emesis since returning ontinue sucralfate 1g for 14 days after mealsprilo sec 20 mg daily for 8 weeksconti nue pepcid 20 mg BIDavoid NSAIDavoid lying flat for 1 hour after eating- recommend OOB for meals Aspiration pneumonia 422 118143 J69.0 completed abxavoid lying flat for 1 hour after eating- recommend OOB for meals Acute urin maciej tract infection 967187382 N30.01 abx completed Umair hematuria 69417852 5 R31.0 12: pink tingeddisc ussed with nursing to monitor outputcan restart eliquis [id number] RASHAWN WAGGONER [facility] [address] [place] [address] 06/08/2024 08:39:45 06/09/2024 12:00:08 Gastrointestinal hemorrhage 50482275 K92.2 no reported coffee ground emesis since returning ontinue sucralfate 1g for 14 days after mealsprilo sec 20 mg daily for 8 weeksavoid NSAIDavoid lying flat for 1 hour after eating- recommend OOB for meals Umair hematuria 22503970 5 R31.0 suprapubic catheter with geovani urine noted todaydiscu ssed with nursing to monitor outputcan restart eliquis 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 Rare yeast and pseudohyph ae are present, consistent with Violette speciesnow on fluconazol e 200 mg qd for 14 dayscontin ue PPI and S0Tcoxq extend carafate 1 gm after meals QD. [id number] RASHAWN WAGGONER [address] [address] 06/12/2024 10:18:47 06/13/2024 14:16:39 Gastrointestinal hemorrhage 63859230 K92.2 no reported coffee ground emesis since returning ontinue sucralfate 1g for 14 days after mealsprilo sec 20 mg daily for 8 weeksavoid NSAIDavoid lying flat for 1 hour after eating- recommend OOB for mealsmonit or weekly labs for now Umair hematuria 34045763 5 R31.0 suprapubic catheter with geovani urine noted todaydiscu ssed with nursing to monitor outputcont inue eliquis Ulcerative esophagitis 104774879 K22.10 esophagus biopsy resulted 06/06 showed Ulcerative esophagiti s. Rare yeast and pseudohyph ae are present, consistent with Violette speciesnow on fluconazol e 200 mg qd for 14 dayscontin ue PPIwill extend carafate 1 gm after meals QD. [id number] RASHAWN WAGGONER [facility] [address] 06/15/2024 08:20:07 06/16/2024 13:24:29 Gastrointestinal hemorrhage 75681092 K92.2 no reported coffee ground emesis since returningc ontinue sucralfate prilosec 20 mg daily for 8 weeksavoid NSAIDavoid lying flat for 1 hour after eating- recommend OOB for mealsmonit or weekly labs for now Umair hematuria 23947721 5 R31.0 suprapubic catheter with geovani urine noted todaydiscu ssed with nursing to monitor outputcont inue eliquis Ulcerative esophagitis 219078757 K22.10 esophagus biopsy resulted 06/06 showed Ulcerative esophagiti s. Rare yeast and pseudohyph ae are present, consistent with Violette speciesnow on fluconazol e 200 mg qd for 14 days until 06/21conti nue PPIwill extend carafate 1 gm after meals QD. Urethral u rinary catheter in situ for fdc use 9530342261 104 Z96.0 prone to frequent UTI; recently completed ABX.Ornelas patent and draining.C hange ornelas every 3-4 weeks and use catheter securenurs ing to do ornelas care twice daily encouraged . [id number] RASHAWN WAGGONER [address] [address] 06/19/2024 10:41:37 06/20/2024 12:04:02 Ulcerative esophagitis 665874503 K22.10 esophagus biopsy resulted 06/06 showed Ulcerative esophagiti s. Rare yeast and pseudohyph ae are present, consistent with Violette speciesnow on fluconazol e 200 mg qd for 14 days until 06/21conti nue PPIwill extend carafate 1 gm after meals QD. Gastrointe stinal hemorrhage 02405221 K92.2 no reported coffee ground emesis since returning ontinue sucralfate prilosec 20 mg daily for 8 weeksavoid NSAIDavoid lying flat for 1 hour after eating- recommend OOB for mealsmonit or weekly labs for now Urethral u rinary catheter in situ for fdc use 8667207065 104 Z96.0 prone to frequent UTI; recently completed ABX.Ornelas patent and draining.C hange ornelas every 3-4 weeks and use catheter securenurs ing to do ornelas care twice daily encouraged . [id number] RASHAWN WAGGONER [address] [address] 06/26/2024 10:30:09 06/27/2024 09:52:09 Ulcerative esophagitis 497336103 K22.10 esophagus biopsy resulted 06/06 showed Ulcerative esophagiti s. Rare yeast and pseudohyph ae are present, consistent with Violette speciesnow on completed fluconazol e on 07/01will extend carafate 1 gm after meals QD. Gastrointe stinal hemorrhage 62588407 K92.2 no reported coffee ground emesis since returning ontinue sucralfate prilosec 20 mg daily for 8 weeksavoid NSAIDavoid lying flat for 1 hour after eating- recommend OOB for mealsmonit or weekly labs for now Urethral u rinary catheter in situ for fdc use 6629313548 104 Z96.0 prone to frequent UTI; recently completed ABX.Ornelas patent and draining.C hange ornelas every 3-4 weeks and use catheter securenurs ing to do ornelas care twice daily encouraged . Atrial fibrillation 4943 6004 I48.0 continue eliquis 2.5 mg daily- monitor for hematuriao cc hematuria that resolves with irrigation . Benign pro static hyperplasia 419975164 N40.1 with suprapubic catheter -continue finasterid e 5 mg daily Dementia 25479958 F02.B3 stable at his baselineca n be impulsive, easily agitatedex pect declineCon tinue mirtazapin e 15 mg qdcontinue trazadone 25 mg at hs for anxiety with agitation Essential hypertension 16579120 I10 stabledilt iazem 120 mg dailymonit or BP [id number] RASHAWN WAGGONER [address] [place] [address] 10/01/2024 10:54:39 10/05/2024 16:06:42 Urethral urinary catheter in situ for fdc use 7204545500 104 Z96.0 recurrent UTI Hxwill start on PPX [facility]xmacrobi d [facility] Atrial fibrillation 4943 6004 I48.0 stablerate controlled continue eliquis 2.5 mg daily- Benign pro static hyperplasia 428483161 N40.1 with suprapubic catheter -continue finasterid e 5 mg daily Dementia 30812837 F02.B3 stable at his baselineca n be impulsive, easily agitatedex pect declineCon tinue mirtazapin e 15 mg qdcontinue trazadone 25 mg at hs for anxiety with agitation Essential hypertension 86469387 I10 stabledilt iazem 120 mg dailymonit or BP [id number] MD STANISLAV Griffiths [address] [place] [address] 10/04/2024 11:48:11 10/05/2024 16:26:16 Atrial fibrillation 37399016 I48.0 eliquis 2.5 mg bidmonitor for rate control Benign pro static hyperplasia 710140149 N40.1 followed by urology Dementia 04361026 F02.B3 baseline dementia with behaviorsc urrently calmmonito r for behaviorsu pdate psych with concerns Recurrent urinary tract infection 494732399 N30.20 suprapubic cath in placenow on macrobid 100 mg qd with cath change q 3 weeksmonit or for effectcoor dinate with urology Health Concerns Section Related Observation LastModified by Organization Detai ls LastModified Time None Recorded Concern Status LastModified by Organization Details LastModified Time None Recorded Advance Directives Directive N: assumed full code Payers Insurance Date Sequence Insurance Name Policy Number Policy [place] Covered Member ID Lathma Member ID Guarantor Name 10/04/2024 1 MED[place]ARE [place]: [employer] Joel Acevedo [id number] Joel Acevedo 10/04/2024 2 [place] [facility] Joel Acevedo [id number] Joel Acevedo Notes Date Note Type Note [...] he is currently at his baseline in [facility], there are no acute nursing concerns. Nurse notes reviewed, no acute nursing concerns. RASHAWN WAGGONER [address] [facility], [address], [place], [address], [place] [employer] 06/15/2024 15:54:20 06/19/2024 text/html This is a 78 yo male LTC resident seen for acute rounding visit. He has been at his baseline in [facility]. He ornelas has been patent and without any hematuria.He denies any throat discomfort, nursing reports that he is eating ok, he continues on antifungal, compliant with meds. Nurse notes reviewed, no acute nursing concerns. RASHAWN WAGGONER [address] [facility] [facility] [facility], [address], [place], [address], [employer] 06/19/2024 14:23:00 06/26/2024 text/html This is a 78 yo male LTC resident seen for routine rounding visit. He has been at his baseline in [facility]. There are no acute nursing concerns. He is dependent on nursing staff to meet health care needs. He prefers to stay in his room, anxiety increases when he is out of his room. NN reviewed. RASHAWN WAGGONER [address] [facility], [address], [place], [address], [employer] 06/26/2024 13:20:51 10/01/2024 text/html This is a [...] aware or UA results. RASHAWN WAGGONER [address] [facility], [address], [place], [address], [employer] 10/02/2024 09:10:20 10/04/2024 text/html Patient is a 78 yo male resident seen for MD visit. Patient with baseline suprapubic cath with recurrent UTI. Now started on prophylaxis with cath change q 3 weeks. Discussed with nursing. Patient lying in bed in [facility] with baseline impaired cognition Rajesh Son MD [address], [address], [place], [address], [facility] 10/04/2024 11:54:32
== END 2025-01-01 07:50 | disposition home or self-care (01) ==
LOC: HO.MMNH3L 07:49
PROVIDERS: Visit Provider Family Medicine
DX: N39.0 Urinary tract infection, site not specified (principal); F41.8 Other specified anxiety disorders; G93.41 Metabolic encephalopathy
CPT/HCPCS: 36415; 80048; 85025

== ENCOUNTER 2025-01-03 06:43 | Outpatient (REF) | payer MEDICARE, MEDICAID, SELFPAY ==
[2025-01-03 06:47] LABS: MANUAL DIFF FLAG NO
[2025-01-03 07:09] LABS: Hematocrit 33.0 % (42.0-52.0); Hemoglobin 11.0 g/dl (14.0-18.0); Imm Gran Abs Auto 0.01 X10*3/uL (0.00-0.03); Imm Gran Pct Auto 0.2 % (0.0-0.4); Lymphocytes Absolute Auto 1.6 X10*3/uL (1.2-4.9); Mean Corpuscular HGB Conc 33.3 g/dl (31.0-36.0); Mean Corpuscular Hemoglobin 30.4 pg (27.0-33.0); Mean Corpuscular Volume 91.2 fL (80.0-98.0); NRBC Abs Auto 0.000 X10*3/uL (0.0-0.012); NRBC Pct Auto 0.0 /100WBC (0.0-0.2); Platelet Count 269 X10*3/uL (160-400); Red Blood Count 3.62 X10*6/uL (4.60-5.80); White Blood Count 6.4 X10*3/uL (4.8-10.8)
[2025-01-03 07:16] LABS: Anion Gap 12 (12-20); Blood Urea Nitrogen 27 mg/dL (9-16); Calcium 8.5 mg/dL (8.4-10.2); Carbon Dioxide 24 mmol/L (22-29); Chloride 110 mmol/L (96-108); Estimated Glomerular Filt Rate > 60; Potassium 3.8 mmol/L (3.3-5.1); Sodium 142 mmol/L (135-145)
== END 2025-01-03 06:44 | disposition home or self-care (01) ==
LOC: HO.MMNH3L 06:43
PROVIDERS: Internal Medicine; Visit Provider Internal Medicine
DX: G93.41 Metabolic encephalopathy (principal); I10 Essential (primary) hypertension; I48.0 Paroxysmal atrial fibrillation
CPT/HCPCS: 36415; 80048; 85025

== ENCOUNTER 2025-01-22 05:54 | Outpatient (REF) | payer MEDICARE, MEDICAID, SELFPAY ==
[2025-01-22 05:57] LABS: MANUAL DIFF FLAG NO
--- OUTSIDE RECORDS SUMMARY | 2025-01-22 05:57 | XMS_ITS | Continuity of Care Document ---
Author Organization [facility], [facility] Address [address] [place] [address] Care Team Providers Care Barn Boss Name Role Phone STANISLAV CHEN 3RD FLOOR OTHER Assessment Encounter Date Assessment Date Assessment LastModified by Organization Details LastModified Time 01/18/2025 01/18/2025 Spent 45 reviewing records, seeing pt, consulting with staff and documenting llevheim Not available 01/18/2025 22:41:45 Plan of Treatment Reminders Order Date Submit [...] Organization Details Recorded Time Benign prostatic hyperplasia 449439436 Active 2021 MARK SCHROEDER NP [address], [address], [place], [address], [facility] 2 12:42:30 Vascular dementia 038603902 Active 2021 MARK SCHROEDER NP [address] , [address], [place], [address], [facility] 2 12:42:36 Constipatio n 11191370 Active 2021 MARK SCHROEDER NP [address], [address], [place], [address], [facility] 2 12:42:45 Atrial fibrillatio n 40742599 Active 2021 MARK SCHROEDER NP [address], [address], [place], [address], [place] [facility] 2 12:42:54 Falls 408045444 Active 2021 MARK SCHROEDER NP [address], [address], [place], [address], [facility] 2 12:44:39 Gastroesoph ageal reflux disease without esophagitis 746731135 Active 2021 MARK SCHROEDER NP [address], [address], [place], [address], [facility] 2 12:57:57 Acute urinary tract infection 347719178 Active 2021 MARK SCHROEDER NP [address], [address], [place], [address], [facility] 2 14:13:29 Asthenia 27536810 Active 2021 Estefanía Witt MD [address], [address], [place], [address], [facility] 2 16:45:01 Fever 215583022 Active 2021 MARK SCHROEDER NP [address], [address], [place], [address], [facility] 2 10:07:39 COVID-19 270496928 Active 2021 MARK SCHROEDER NP [address], [address], [place], [address], [facility] 2 11:15:20 Bacteremia 4598122 Active 2022 MARK SCHROEDER, AUDI [address], [address], [place], [address], [facility] 3 10:08:56 Pain of right shoulder joint 0059700705595 9100 Active 2022 MARK SCHROEDER NP [address], [address], [place], [address], [facility] 3 12:54:04 Cobalamin deficiency 071135194 Active 2022 Estefanía Witt MD [address], [address], [place], [address], [facility] 3 13:34:49 Sepsis caused by Escherichia coli 642886195 Active 2022 MARK SCHROEDER NP [address], [place], [address], [facility] 3 11:28:51 Dementia 14365918 Active 2022 Estefanía Witt MD [address], [address], [place], [address], [facility] 3 15:58:50 Urinary tract infectious disease 50555715 Active 2023 RASHAWN WAGGONER [address], [address], [place], [address], [facility] 4 20:24:56 Traumatic hematuria 49271584 Active 2023 RSAHAWN WAGGONER [address], [place], [address], [facility] 4 20:56:51 Essential hypertensio n 97605604 Active 2023 RASHAWN WAGGONER [address], [place], [address], [facility] 4 21:01:00 Nutritional disorder 2992338 Active 2023 RASHAWN WAGGONER [address], [address], [place], [address], [facility] 4 21:02:35 Adult failure to thrive syndrome 994440761 Active 2023 Estefanía Witt MD [address], [address], [place], [address], [facility] 4 21:38:36 Bradycardia 54410924 Active 2023 RASHAWN WAGGONER [address], [address], [place], [address], [facility] 4 14:06:56 Acute kidney injury 81498195 Active 2023 RASHAWN WAGGONER [address], [address], [place], [address], [facility] 4 14:06:59 Aspiration pneumonia 688776336 Active 2023 RASHAWN WAGGONER [address], [address], [place], [address], [facility] 4 14:07:05 Gastrointes tinal hemorrhage 67124312 Active 2023 RASHAWN WAGGONER [address], [address], [place], [address], [facility] 4 14:07:15 Ulcerative esophagitis 214808507 Active 2023 RASHAWN WAGGONER [address], [address], [place], [address], [facility] 4 15:56:54 Umair hematuria 063395627 Active 2023 RASHAWN WAGGONER [address], [address], [place], [address], [facility] 4 15:56:56 Recurrent urinary tract infection 241639995 Active 2024 Rajesh Son MD [address] [place] [address], [facility] [address], [place], [address], [facility] 5 11:53:04 Problem Notes None recorded. Medical Equipment None Reported. Allergies No known drug allergies Vitals Date Recorded Body height Body mass index (BMI) Body weight Heart rate Respiratory rate Body temperature Oxygen saturation Oxygen saturation in Arterial blood by Pulse oximetry Systolic And Diastolic Provider Name and Address Organization Details Last Updated DateTime 5 157.48 cm 16.4 kg/m2 51651.5 9 g 65 /min 18 /min 97.5 [degF] 96 % 96 % 125/69 mm[Hg] Estefanía Witt MD [address] [place] [address], [facility] [address], [place], [address], [facility] 5 18:45:34 Social History Question Answer Notes LastModified by Organizat ion Details LastModified Time Tobacco Smoking Status Never Smoker Estefanía Witt MD [address] [place] [address], [address], [place], [address], [facility] 01/20/2022 16:47:58 Do You Have An Advance Directive? No Assumed Full Code Information not available 01/16/2022 What Is Your Code Status? Full Code Information not available 01/16/2022 Where Do You Live? [facility] At [facility] Information not available 06/11/2023 Legal Guardian? Yes Informati on not available 01/20/2022 Do You Have A Medical Power Of [employer]? Yes Guardian, Alecia Isabel Information not available [...] LastModified by Organizat ion Details LastModified Time Do you use any illicit or recreational [...] 30 mcg/0.3 mL dose 05/14/2021 completed Soumya yañez, [facility] 04/17/2022 15:49:57 COVID-19, mRNA, LNP-S, PF, 30 mcg/0.3 mL dose 11/21/2020 completed Soumya yañez, [facility] 04/17/2022 15:50:05 COVID-19, mRNA, LNP-S, PF, 30 mcg/0.3 mL dose 11/04/2021 completed Soumya yañez [facility] 04/17/2022 15:50:17 COVID-19, mRNA, LNP-S, PF, 30 mcg/0.3 mL dose 04/16/2022 completed Soumya yañez [facility] 04/17/2022 15:50:25 Influenza, adjuvanted, quadrivalent, PF 05/18/2022 completed Netta yañez [facility] 07/22/2023 10:59:51 Influenza, adjuvanted, quadrivalent, PF 02/10/2023 completed Netta yañez, [facility] 07/22/2023 11:00:07 Past Encounters Encounter ID Performer Location Encounter Start Date Encounter Closed Date Diagnosis/Indication Diagnosis SNOMED-CT Code Diagnosis ICD10 Code Diagnosis Note [id number] RASHAWN WAGGONER [address] [place] [address] 01/10/2025 05:48:25 01/11/2025 11:05:50 Atrial fibrillation 58144828 I48.0 stablerate controlled continue eliquis 2.5 mg daily- Benign pro static hyperplasia 731331828 N40.1 with suprapubic catheter -continue finasterid e 5 mg daily Dementia 77202247 F02.B3 stableCont inue mirtazapin e 15 mg qdcontinue trazadone 25 mg at hs for anxiety with agitation Essential hypertension 80525728 I10 stabledilt iazem 120 mg dailymonit or BP Suprapubic urinary catheter in situ 260962381 Z93.59 monitor for sx of site infection update provider with changes.pa tent and drainingab dominal binder to prevent accidental pulling out.change catheter tubing per urology recs.recur rent UTI Hxcont PPX [facility] [id number] MD STANISLAV Munoz [address] [place] [address] [place] [address] 01/18/2025 18:41:55 01/18/2025 22:41:56 Adult failure to thrive syndrome 202243958 R62.7 With marked wt. loss since here, but stable around 90# the past few months.Con tinue supplement s as ordered.Co ntinue mirtazapin e 15 mg qd.Monitor wts Dementia 52448091 F02.B3 Continues at baselineCo ntinue mirtazapin e 15 mg qd and trazadone 25 mg BID.Contin ue supportive care, expect decline.Vega charisse guardian.M onitor mood and behaviors. Psych follows. Chronic re tention of urine 997582378 R33.8 See HPI.Contin ue suprapubic cath with routine changes.F/ U with uro as planned. 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 Atrial fibrillation 4943 6004 I48.0 Had bradycardi a when ill, now back to nl since return to facility.O n no rate controllin g meds.[place] nue eliquis 2.5 mg BID for AC.Monitor HR and bleeding risk. Gastroesop hageal reflux disease without esophagitis 939898704 K21.9 No current sxs.Has been off famotidine since 05/2024 with no ill effects.Mo nitor GI sxs Essential hypertension 15026503 I10 Continues in good control on no meds.Monit or BP and labs. Suprapubic urinary catheter in situ 485346348 Z93.59 As above.Cont inue phenazopyr idine 100 mg TID for bladder spasms and can give 100 mg TID prn for breakthrou gh spasms.Mon itor. Recurrent urinary tract infection 914023483 N39.0 Unclear if recent illness was due to UTI as cx had mixed growth.Con tinue ascorbic acid 500 mg BID, methanamin e 1 gm BID, and nitrofuran toin 100 mg qhs all for UTI prophylaxi s.Monitor for sxs. Acute kidney injury 1466 9001 N17.8 Likely due to obstructio n and sepsis.Wor sened after CT with IV contrast.I mproved inpt, but not yet back to baseline on d/c.Contin ue to encourage po fluids.Lab s ordered for 01/22. Health Concerns Section Related Observation LastModified by Organization Detai ls LastModified Time None Recorded Concern Status LastModified by Organization Details LastModified Time None Recorded Payers Encounter Date Sequence Insurance Name Policy Number Policy [place] Covered Member ID Latham Member ID Guarantor Name 01/18/2025 1 MEDICARE B-[place]: [email or web address] Joel Lao Curtis [id number] Joel Acevedo 01/18/2025 2 [place] [facility] Joel Tashia Curtis [id number] Joel Acevedo Notes Date Note Type Note Provider Name and Address Organization Details Recorded Time 01/18/2025 text/html I am seeing this 79 yo man, LTC resident, for a readmission visit and in anticipation of transition to new medical team.He has been here since 12/2023 after a hospitalization for Afib with RVR and AMS.He had a prolonged hospitalization due to need to obtain guardianship and conservatorship. He has had almost 20# wt loss since here, but has been relatively stable the past few months. Since here he has had several rehospitalizations.Huey ambrosio recently was sent out on 01/12 due to problems with his suprapubic cath.There had been issues with pt pulling on cath and it getting displaced and then on 01/12 there was gross hematuria and he was sent to ED. Cath had originally been placed in 05/2024 after having a chronic ornelas due to retention. It had just been replaced on 01/11. de icer rerouted him to [facility] due to bradycardia of 40.Ornelas was found to be with balloon in prostate and this was replaced with yield of large amt of bloody urine.He had an elevated WBC of 16.6 and a temp of 100.2, BUN/Cr were 35/1.45 (baseline 27/1.05), and lactate 0.9.U/A was unable to be done due to gross hematuria and pyridium. Admitted for sepsis.Started on CTX.Eliquis was held and then restarted when urine cleared.Needed meds to be able to tolerate CT scan.Had agitation and delirium.Urine cx grew mixed terry.Uro consulted and performed irrigation.He required restraints for several days, but these were able to be d/c'd the morning of 01/15 and he was returned here on 01/16.No meds were changed, but they had some old meds in their system that were on the d/c med list.Corrections made with nursing. Tonight he is in bed sleeping. He wakes and when I ask how he is he says I think I was just sleeping when it happened . I ask what happened and he says he doesn't know.He says he's feeling pretty good, just tired. Denies pain. His PMH includes HTN, PAF on Eliquis, dementia with behavioral disturbance, BPH with obstruction with suprapubic cath, recurrent UTIs, tricuspid regurg, hx of MRSA bacteremia with MRSA in urine 08/2022, right shoulder rotator cuff disease, and possible hx of EtOH overuse. Estefanía Witt MD [address] [place] [address], [address], [place], [address], [facility] 01/18/2025 22:41:55
[2025-01-22 07:02] LABS: Alanine Aminotransferase 22 U/L (0-40); Albumin Level 2.9 g/dL (3.5-5.0); Alkaline Phosphatase 62 U/L (39-117); Anion Gap 9 (12-20); Aspartate Amino Transferase 23 U/L (5-37); Blood Urea Nitrogen 26 mg/dL (9-16); Calcium 8.2 mg/dL (8.4-10.2); Carbon Dioxide 26 mmol/L (22-29); Chloride 110 mmol/L (96-108); Estimated Glomerular Filt Rate 55; Potassium 3.9 mmol/L (3.3-5.1); Sodium 141 mmol/L (135-145); Total Protein 5.4 g/dL (6.5-8.0)
[2025-01-22 07:06] LABS: Hematocrit 29.3 % (42.0-52.0); Hemoglobin 9.3 g/dl (14.0-18.0); Imm Gran Abs Auto 0.01 X10*3/uL (0.00-0.03); Imm Gran Pct Auto 0.2 % (0.0-0.4); Lymphocytes Absolute Auto 2.0 X10*3/uL (1.2-4.9); Mean Corpuscular HGB Conc 31.7 g/dl (31.0-36.0); Mean Corpuscular Hemoglobin 29.8 pg (27.0-33.0); Mean Corpuscular Volume 93.9 fL (80.0-98.0); NRBC Abs Auto 0.000 X10*3/uL (0.0-0.012); NRBC Pct Auto 0.0 /100WBC (0.0-0.2); Platelet Count 286 X10*3/uL (160-400); Red Blood Count 3.12 X10*6/uL (4.60-5.80); White Blood Count 5.6 X10*3/uL (4.8-10.8)
== END 2025-01-22 05:55 | disposition home or self-care (01) ==
LOC: HO.MMNH3L 05:54
PROVIDERS: Visit Provider Family Medicine
DX: Z13.89 Encounter for screening for other disorder (principal)
CPT/HCPCS: 36415; 80053; 85025

== ENCOUNTER 2025-02-05 06:56 | Outpatient (REF) | payer MEDICARE, MEDICAID, SELFPAY ==
[2025-02-05 06:11] LABS: MANUAL DIFF FLAG NO
[2025-02-05 07:03] LABS: Hematocrit 33.9 % (42.0-52.0); Hemoglobin 11.1 g/dl (14.0-18.0); Imm Gran Abs Auto 0.01 X10*3/uL (0.00-0.03); Imm Gran Pct Auto 0.2 % (0.0-0.4); Lymphocytes Absolute Auto 1.9 X10*3/uL (1.2-4.9); Mean Corpuscular HGB Conc 32.7 g/dl (31.0-36.0); Mean Corpuscular Hemoglobin 30.7 pg (27.0-33.0); Mean Corpuscular Volume 93.6 fL (80.0-98.0); NRBC Abs Auto 0.000 X10*3/uL (0.0-0.012); NRBC Pct Auto 0.0 /100WBC (0.0-0.2); Platelet Count 237 X10*3/uL (160-400); Red Blood Count 3.62 X10*6/uL (4.60-5.80); White Blood Count 5.5 X10*3/uL (4.8-10.8)
[2025-02-05 07:14] LABS: Anion Gap 13 (12-20); Blood Urea Nitrogen 30 mg/dL (9-16); Calcium 8.6 mg/dL (8.4-10.2); Carbon Dioxide 22 mmol/L (22-29); Chloride 109 mmol/L (96-108); Estimated Glomerular Filt Rate > 60; Potassium 4.7 mmol/L (3.3-5.1); Sodium 139 mmol/L (135-145)
== END 2025-02-05 06:57 | disposition home or self-care (01) ==
LOC: HO.MMNH3L 06:56
PROVIDERS: Visit Provider Family Medicine
DX: G93.41 Metabolic encephalopathy (principal); N39.0 Urinary tract infection, site not specified; F41.8 Other specified anxiety disorders
CPT/HCPCS: 36415; 80048; 85025

== ENCOUNTER 2025-04-09 06:40 | Outpatient (REF) | payer MEDICARE, MEDICAID, SELFPAY ==
[2025-04-09 06:31] LABS: MANUAL DIFF FLAG NO
[2025-04-09 06:48] LABS: Hematocrit 33.1 % (42.0-52.0); Hemoglobin 10.5 g/dl (14.0-18.0); Imm Gran Abs Auto 0.02 X10*3/uL (0.00-0.03); Imm Gran Pct Auto 0.4 % (0.0-0.4); Lymphocytes Absolute Auto 1.8 X10*3/uL (1.2-4.9); Mean Corpuscular HGB Conc 31.7 g/dl (31.0-36.0); Mean Corpuscular Hemoglobin 30.3 pg (27.0-33.0); Mean Corpuscular Volume 95.4 fL (80.0-98.0); NRBC Abs Auto 0.020 X10*3/uL (0.0-0.012); NRBC Pct Auto 0.4 /100WBC (0.0-0.2); Platelet Count 230 X10*3/uL (160-400); Red Blood Count 3.47 X10*6/uL (4.60-5.80); White Blood Count 5.3 X10*3/uL (4.8-10.8)
--- OUTSIDE RECORDS SUMMARY | 2025-04-09 06:49 | XMS_ITS | Data Portability ---
Author Organization [facility], Main Office Address [address] [facility] [address] [place] [address] Care Team Providers Care Data Entry Technician Name Role Phone STANISLAV CHEN 3RD FLOOR OTHER Assessment Encounter Date Assessment Date Assessment LastModified by Organization Details LastModified Time 06/26/2024 06/26/2024 labs 05/31: Na 145-K 3.5-Bun 13-Cr 1.3-wbc 6.6-hgb 11.0-hct 34-plt 303 Labs 06/05: Na 138-K 3.9-Bun 13-Cr 1.0-wbc 5.4-hgb 10.9- hct 33.4-plt 272 Not available 06/26/2024 13:15:00 10/01/2024 10/01/2024 labs 05/31: Na 145-K 3.5-Bun 13-Cr 1.3-wbc 6.6-hgb 11.0-hct 34-plt 303 Labs 06/05: Na 138-K 3.9-Bun 13-Cr 1.0-wbc 5.4-hgb 10.9- hct 33.4-plt 272 Not available 10/02/2024 08:37:56 01/18/2025 01/18/2025 Spent 45 reviewing records, seeing [...] Organization Details Recorded Time Benign prostatic hyperplasia 451386428 Active 2021 MARK SCHROEDER NP [address], [address], [place], [address], [facility] 2 12:42:30 Vascular dementia 508925516 Active 2021 MARK SCHROEDER NP [address], [address], [place], [address], [facility] 2 12:42:36 Constipatio n 92229195 Active 2021 MARK SCHROEDER NP [address], [address], [place], [address], [facility] 2 12:42:45 Atrial fibrillatio n 64108351 Active 2021 MARK SCHROEDER NP [address], [address], [place], [address], [place] [facility] 2 12:42:54 Falls 040200536 Active 2021 MARK SCHROEDER NP [address], [address], [place], [address], [facility] 2 12:44:39 Gastroesoph ageal reflux disease without esophagitis 708787911 Active 2021 MARK SCHROEDER NP [address], [address], [place], [address], [facility] 2 12:57:57 Acute urinary tract infection 822647019 Active 2021 MARK SCHROEDER NP [address], [place], [address], [facility] 2 14:13:29 Asthenia 83286627 Active 2021 Estefanía Witt MD [address], [address], [place], [address], [facility] 2 16:45:01 Fever 143963313 Active 2021 MARK SCHROEDER NP [address], [place], [address], [facility] 2 10:07:39 COVID-19 182258232 Active 2021 MARK SCHROEDER NP [address], [place], [address], [facility] 2 11:15:20 Bacteremia 5466046 Active 2022 MARK SCHROEDER NP [address], [place], [address], [facility] 3 10:08:56 Pain of right shoulder joint 8812324004260 9100 Active 2022 MARK SCHROEDER NP [address], [address], [place], [address], [facility] 3 12:54:04 Cobalamin deficiency 406751355 Active 2022 Estefanía Witt MD [address] [facility], [address], [place], [address], [facility] 3 13:34:49 Sepsis caused by Escherichia coli 963123363 Active 2022 MARK SCHROEDER NP [address] [facility], [address], [place], [address], [facility] 3 11:28:51 Dementia 45175033 Active 2022 Estefanía Witt MD [address] [facility], [address], [place], [address], [facility] 3 15:58:50 Urinary tract infectious disease 11705512 Active 2023 RASHAWN WAGGONER [address] [facility], [address], [place], [address], [facility] 4 20:24:56 Traumatic hematuria 31939541 Active 2023 RASHAWN WAGGONER [address], [address], [place], [address], [facility] 4 20:56:51 Essential hypertensio n 84738086 Active 2023 RASHAWN WAGGONER [address], [place], [address], [facility] 4 21:01:00 Nutritional disorder 8912097 Active 2023 RASHAWN WAGGONER [address], [address], [place], [address], [facility] 4 21:02:35 Adult failure to thrive syndrome 264747764 Active 2023 Estefanía Witt MD [address], [address], [place], [address], [facility] 4 21:38:36 Bradycardia 28454190 Active 2023 RASHAWN WAGGONER [address], [address], [place], [address], [facility] 4 14:06:56 Acute kidney injury 69769972 Active 2023 RASHAWN WAGGONER [address], [address], [place], [address], [facility] 4 14:06:59 Aspiration pneumonia 473619958 Active 2023 RASHANW WAGGONER [address], [address], [place], [address], [facility] 4 14:07:05 Gastrointes tinal hemorrhage 32530275 Active 2023 RASHAWN WAGGONER [address], [address], [place], [address], [facility] 4 14:07:15 Ulcerative esophagitis 226457623 Active 2023 RASHAWN WAGGONER [address], [address], [place], [address], [facility] 4 15:56:54 Umair hematuria 175526454 Active 2023 RASHAWN WAGGONER [address], [address], [place], [address], [facility] 4 15:56:56 Recurrent urinary tract infection 873741880 Active 2024 Rajesh Son MD [address], [address], [place], [address], [facility] 11:53:04 Problem Notes None recorded. Medical Equipment None Reported. Allergies No known drug allergies Vitals Date Recorded Body height Heart rate Respiratory rate Body temperature Oxygen saturation Oxygen saturation in Arterial blood by Pulse oximetry Systolic And Diastolic Provider Name and Address Organization Details Last Updated DateTime 157.48 cm 57 /min 18 /min 97.3 [degF] 95 % 95 % 114/72 mm[Hg] RASHAWN WAGGONER [address] [facility], [address], [place], [address], [facility] 08:46:05 Date Recorded Body height Systolic And Diastolic Provider Name and Address Organization Details Last Updated DateTime 10/04/2024 157.48 cm 113/69 mm[Hg] Rajesh Son MD [address] [facility], [address], [place], [address], [facility] 10/04/2024 11:49:04 Date Recorded Body height Provider Name an d Address Organization Details Last Updated DateTime 01/10/2025 157.48 cm RASHAWN WAGGONER [address] [facility], [address], [place], [address], [facility] 01/11/2025 18:28:14 Date Recorded Body height Body mass index (BMI) Body weight Heart rate Respiratory rate Body temperature Oxygen saturation Oxygen saturation in Arterial blood by Pulse oximetry Systolic And Diastolic Provider Name and Address Organization Details Last Updated DateTime 157.48 cm 16.4 kg/m2 00185.5 9 g 65 /min 18 /min 97.5 [degF] 96 % 96 % 125/69 mm[Hg] Estefanía Witt MD [address] [facility], [address], [place], [address], [facility] 18:45:34 Date Recorded Body height Provider Name an d Address Organization Details Last Updated DateTime 06/26/2024 157.48 cm RASHAWN WAGGONER [address] [facility], [address], [place], [address], [facility] 06/26/2024 13:14:24 Social History Question Answer Notes LastModified by Organizat ion Details LastModified Time Tobacco Smoking Status Never Smoker Estefanía Witt MD [address] [facility], [address], [place], [address], [facility] 01/20/2022 16:47:58 Do You Have An Advance Directive? No Assumed Full Code Information not available 01/16/2022 What Is Your Code Status? Full Code Information not available 01/16/2022 Where Do You Live? [facility] Information not available 06/11/2023 Legal Guardian? 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 Yes Guardian, Alecia Isabel Information not available [...] mcg/0.3 mL dose 05/14/2021 completed Soumya yañez [facility] 04/17/2022 15:49:57 COVID-19, mRNA, LNP-S, PF, 30 mcg/0.3 mL dose 11/21/2020 [facility] 15:50:05 COVID-19, mRNA, LNP-S, PF, 30 mcg/0.3 mL dose 11/04/2021 completed Soumya yañez [facility] 04/17/2022 15:50:17 COVID-19, mRNA, LNP-S, PF, 30 mcg/0.3 mL dose 04/16/2022 completed Soumya yañez [facility] 04/17/2022 15:50:25 Influenza, adjuvanted, quadrivalent, PF 05/18/2022 completed Netta yañez [facility] 07/22/2023 10:59:51 Influenza, adjuvanted, quadrivalent, PF 02/10/2023 completed Netta yañez [facility] 07/22/2023 11:00:07 Past Encounters Encounter ID Performer Location Encounter Start Date Encounter Closed Date Diagnosis/Indication Diagnosis SNOMED-CT Code Diagnosis ICD10 Code Diagnosis IMO Codes Diagnosis Note [id number] AUDI CAPONE APRIL [address] [place] [address] 01/16/2022 09:17:04 01/20/2022 14:19:48 Vascular dementia 181950351 F01.50 remeron 15 mg hspsych prnchart and monitor any changes in mood or behaviors Atrial fibrillation 4943 6004 I48.91 cardizem 120 mg dailyeliqu is 5 mg bidmonitor heart rate Benign pro static hyperplasia 078764568 N40.1 ornelas cathflomax 0.8 mg dailyfinas teride 5 mg daily Gastroesop hageal reflux disease without esophagitis 765032997 K21.9 pepcid 20 mg daily Constipation 87938778 K5 9.00 senna plus 2 tabs bid Falls 645325187 R29.6 PT OT eval and treatfall precaution sfrequent safety checks [id number] AUDI CAPONE [address] [place] [address] 01/19/2022 14:12:01 01/23/2022 17:01:11 Acute urinary tract infection 680457967 N39.0 cephalexin 500 mg qid x10 daysmonito r for symptoms Benign pro static hyperplasia 227580464 N40.1 ornelas cathflomax 0.8 mg dailyfinas teride 5 mg daily [id number] MD STANISLAV Munoz APRIL [address] [place] [address] [place] [address] 01/20/2022 11:55:23 01/28/2022 16:12:54 Acute urinary tract infection 056923718 N30.01 U/A reportedly + in ED (report not available. Continue cephalexin 500 mg QID x10 days (pending cx)Will get copies of U/A and cx from [facility] [place] [place].Monito r for sxs. Benign pro static hyperplasia 599361175 N40.1 Continue ornelas cathContin ue tamsulosin 0.8 mg qd and finasterid e 5 mg qd.Getting f/u appt with uro. Vascular dementia 423077 004 F01.50 Suspect some element of EtOHic [...] risk. Gastroesop hageal reflux disease without esophagitis 756404100 K21.9 No current sxs.Contin ue famotidine 20 mg qd. Constipation 63570245 K5 9.09 Continue senna plus 2 tabs BID.Monito r bowel function. Falls 068950030 R29.6 As above. Umair hematuria 46507968 5 R31.0 Unclear if from UTI vs. traumatic, vs combinatio n of the 2.Clear now.Monito r Asthenia 92203570 R53.1 Very deconditio jen.Needs PT/OT for strengthen ing, balance, gait training, safety and function.C ontinue fall precaution s.Monitor for safety. [id number] MARK GRIPPIN, VAU[employer]IL[employer] ACTOR [address] [address] 01/22/2022 12:51:54 01/28/2022 19:53:28 Acute urinary tract infection 720890698 N30.01 recoveredc ephalexin 500 mg qid x10 daysmonito r for symptoms Benign pro static hyperplasia 733858302 N40.1 ornelas cathflomax 0.8 mg dailyfinas teride 5 mg daily Asthenia 74791038 R53.1 PT OT eval and treatfall precaution sfrequent safety checks [id number] MARK SCHROEDER NP [address] [address] 01/26/2022 13:15:39 01/29/2022 09:29:27 Acute urinary tract infection 503494336 N30.01 macobid 100mg bid to 01/29monito r for symptoms Benign pro static hyperplasia 406565848 N40.1 ornelas cathflomax 0.8 mg dailyfinas teride 5 mg dailyurolo gy consult [id number] MARK SCHROEDER NP [address] [address] 01/30/2022 12:08:30 02/13/2022 16:22:20 Acute urinary tract infection 237336461 N30.01 macobid 100mg bid to 01/29monito r for symptoms Benign pro static hyperplasia 950114857 N40.1 ornelas cathflomax 0.8 mg dailyfinas teride 5 mg dailyurolo gy consult Vascular dementia 879486 004 F01.50 remeron 15 mg hspsych prnchart and monitor any changes in mood or behaviors [id number] MARK SCHROEDER NP [address] [address] 02/04/2022 12:45:15 02/16/2022 20:39:21 Benign prostatic hyperplasia 231647225 N40.1 ornelas cathflomax 0.8 mg dailyfinas teride 5 mg dailyurolo gy consult Vascular dementia 370553 004 F01.50 remeron 15 mg hspsych prnchart and monitor any changes in mood or behaviors [id number] MARK SCHROEDER NP [address] [address] 02/11/2022 12:58:05 02/17/2022 16:07:34 Benign prostatic hyperplasia 839770836 N40.1 ornelas cathflomax 0.8 mg dailyfinas teride 5 mg dailyurolo gy consult Vascular dementia 177302 004 F01.50 remeron 15 mg hspsych prnchart and monitor any changes in mood or behaviors Atrial fibrillation 4943 6004 I48.91 cardizem 120 mg dailyeliqu is 5 mg bidmonitor heart rate Gastroesop hageal reflux disease without esophagitis 413980624 K21.9 pepcid 20 mg daily Constipation 47951222 K5 9.00 senna plus 2 tabs bid Falls 658120233 R29.6 PT OT eval and treatfall precaution sfrequent safety checks [id number] AUDI CAPONE [address] [place] [address] 02/18/2022 11:43:57 02/26/2022 11:37:51 Benign prostatic hyperplasia 639168470 N40.1 ornelas cath-will be chronic due to failed voiding trialfloma x 0.8 mg dailyfinas teride 5 mg dailyurolo gy consult Vascular dementia 947144 004 F01.50 remeron 15 mg hspsych prnchart and monitor any changes in mood or behaviors Asthenia 83874542 R53.1 PT OT eval and treatfall precaution sfrequent safety checks [id number] MARK SCHROEDER NP [address] [address] 02/26/2022 12:48:09 03/04/2022 15:36:11 Vascular dementia 913576027 F01.50 remeron 15 mg hspsych prnchart and monitor any changes in mood or behaviors Benign pro static hyperplasia 885353666 N40.1 ornelas cath-will be chronic due to failed voiding trialfloma x 0.8 mg dailyfinas teride 5 mg dailyurolo gy consult [id number] Patsy Waite MD [address] [address] 03/13/2022 08:12:36 03/17/2022 14:45:27 Asthenia 45157932 R53.1 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 monitor and support as needed Vascular dementia 297085 004 F01.50 expect declinewil l monitor and support as needed Gastroesop hageal reflux disease without esophagitis 441701741 K21.9 famotidine 20 mg bidwill monitor Benign pro static hyperplasia 698291766 N40.1 Ornelas catheterfu urologyfin asteride 5 mg dailytamsu losin 0.8 mg dailywill monitor Atrial fibrillation 4943 6004 I48.0 apixaban 5 mg biddiltiaz em ER 120 mg daily for rate controlwil l monitor 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 mirtazapin e 15 mg dailywill monitor Cobalamin deficiency 190 780948 E53.8 B12 1000 mcg dailywill monitor [id number] MARK SCHROEDER NP [address] [address] 04/03/2022 11:19:01 04/07/2022 14:04:53 Asthenia 14234185 R53.1 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 monitor and support as needed Vascular dementia 378469 004 F01.50 expect declinewil l monitor and support as neededguar kev in place Gastroesop hageal reflux disease without esophagitis 011341106 K21.9 famotidine 20 mg bidwill monitor Benign pro static hyperplasia 351691151 N40.1 Ornelas catheterf/ u urologyfin asteride 5 mg dailytamsu losin 0.8 mg dailywill monitor Atrial fibrillation 4943 6004 I48.0 apixaban 5 mg biddiltiaz em ER 120 mg daily for rate controlwil l monitor Mixed anxi ety and depressive disorder 442767854 F41.8 mirtazapin e 15 mg dailywill monitor Cobalamin deficiency 190 244494 E53.8 B12 1000 mcg dailywill monitor [id number] MARK SCHROEDER NP [address] [address] 04/17/2022 10:06:54 04/21/2022 15:17:37 Fever 410134861 R50.9 ua, covid swab negative, cbc, cmp, blood culturemon itor for response to tylenol [id number] Patsy Waite MD [address] [address] 06/12/2022 06:14:20 06/16/2022 15:35:15 Vascular dementia 507387614 F01.50 expect declinewil l monitor and support as needed Benign pro static hyperplasia 890242675 N40.1 Ornelas catheterfu urologyfin asteride 5 mg dailytamsu losin 0.8 mg dailywill monitor Atrial fibrillation 4943 6004 I48.0 apixaban 2.5 mg biddiltiaz em ER 120 mg daily for rate controlwil l monitor Cobalamin deficiency 190 831967 E53.8 B12 1000 mcg dailywill monitor Mixed anxi ety and depressive disorder 724231459 F41.8 mirtazapin e 15 mg dailywill monitor [id number] MARK SCHROEDER NP [address] [address] 06/29/2022 10:38:59 07/10/2022 13:14:29 COVID-19 922832745 U07.1 06/26 covid positiveen courage po intakecons ider ivf for anorexiaco nsider paxlovid or decadron for symptomsse nd to ED for decompensa tion [id number] MARK SCHROEDER NP [address] [address] 07/01/2022 11:29:19 07/10/2022 13:46:41 COVID-19 812110299 U07.1 06/26 covid positiveen courage po intakecons ider ivf for anorexiaco nsider paxlovid or decadron for symptomsse nd to ED for decompensa tion [id number] MARK SCHROEDER NP [address] [address] 07/02/2022 12:52:16 07/10/2022 14:18:58 COVID-19 523254063 U07.1 06/26 covid positiveen courage po intakecons ider ivf for anorexiaco nsider paxlovid or decadron for symptomsse nd to ED for decompensa tion [id number] MARK SCHROEDER NP [address] [address] 07/03/2022 11:19:45 07/10/2022 14:49:59 COVID-19 184106094 U07.1 06/26 covid positiveen courage po intakecons ider ivf for anorexiaco nsider paxlovid or decadron for symptomsse nd to ED for decompensa tion [id number] MARK SCHROEDER NP [address] [address] 07/06/2022 13:44:51 07/10/2022 15:22:57 COVID-19 098150413 U07.1 06/26 covid positive-a symptomati c, recovered by dateencour age po intakecons ider ivf for anorexiaco nsider paxlovid or decadron for symptomsse nd to ED for decompensa tion MARK SCHROEDER NP [address] [address] 08/03/2022 12:47:40 08/05/2022 13:54:59 Acute urinary tract infection 863825524 N30.01 cefuroxime 250 mg bid x7 days 2/8monitor for symptoms MARK SCHROEDER NP [address] [address] 08/13/2022 08:31:00 08/17/2022 14:54:18 Bacteremia 8796616 R78.81 vanco 1250 mg iv daily to 3/1monitor for symptoms Vascular dementia 115819 004 F01.50 expect declinewil l monitor and support as needed Benign pro static hyperplasia 209109954 N40.1 Ornelas catheterf/ u urologyfin asteride 5 mg dailytamsu losin 0.8 mg dailywill monitor Atrial fibrillation 4943 6004 I48.0 apixaban 2.5 mg biddiltiaz em ER 120 mg daily for rate controlwil l monitor Cobalamin deficiency 190 488419 E53.8 B12 1000 mcg dailywill monitor Mixed anxi ety and depressive disorder 228674683 F41.8 mirtazapin e 15 mg dailywill monitor Gastroesop hageal reflux disease without esophagitis 259050533 K21.9 famotidine 20 mg bidwill monitor Falls 299379630 R29.6 PT OT eval and treatfall precaution sfrequent safety checks [id number] MARK SCHROEDER NP [address] [address] 08/17/2022 15:26:00 08/19/2022 10:15:46 Bacteremia 9285241 R78.81 vanco 1250 mg iv daily to 3/1monitor for symptoms Acute urin maciej tract infection 997802596 N30.01 good ornelas caremonito r for symptoms [id number] MARK SCHROEDER NP [address] [address] 08/19/2022 10:54:09 08/25/2022 10:12:15 Bacteremia 4113761 R78.81 vanco 1250 mg iv daily to 3/1monitor for symptoms Vascular dementia 146483 004 F01.50 expect declinewil l monitor and support as needed Benign pro static hyperplasia 034978942 N40.1 Ornelas catheterf/ u urologyfin asteride 5 mg dailytamsu losin 0.8 mg dailywill monitor Atrial fibrillation 4943 6004 I48.0 apixaban 2.5 mg biddiltiaz em ER 120 mg daily for rate controlwil l monitor Cobalamin deficiency 190 804147 E53.8 B12 1000 mcg dailywill monitor Mixed anxi ety and depressive disorder 461575782 F41.8 mirtazapin e 15 mg dailywill monitor Gastroesop hageal reflux disease without esophagitis 226699786 K21.9 famotidine 20 mg bidwill monitor Falls 173669267 R29.6 PT OT eval and treatfall precaution sfrequent safety checks [id number] MARK SCHROEDER NP [address] [address] 08/27/2022 11:24:35 09/01/2022 07:22:03 Bacteremia 7363284 R78.81 vanco 1250 mg iv daily to 3/1monitor for symptoms Benign pro static hyperplasia 871368791 N40.1 Ornelas catheterf/ u urologyfin asteride 5 mg dailytamsu losin 0.8 mg dailywill monitor [id number] MARK SCHROEDER NP [address] [place] [address] 09/01/2022 12:54:58 09/03/2022 12:37:02 Bacteremia 6136277 R78.81 vanco 1250 mg iv daily to 3/1monitor for symptoms Benign pro static hyperplasia 098769913 N40.1 Ornelas catheterf/ u urologyfin asteride 5 mg dailytamsu losin 0.8 mg dailywill monitor [id number] MARK SCHROEDER NP [address] [address] 09/10/2022 12:26:40 09/16/2022 14:16:46 Pain of right shoulder joint 6118734073 3166017 M25.511 xrays showed rotator cuff injury/tea rortho consult Patsy Waite MD [address] [address] 10/14/2022 06:36:11 10/20/2022 11:20:30 Vascular dementia 190542815 F01.50 expect declinewil l monitor and support as needed Atrial fibrillation 4943 6004 I48.0 apixaban 2.5 mg biddiltiaz em ER 120 mg daily for rate controlwil l monitor Pain of ri ght shoulder joint 6609670493 0635729 M25.511 diclofenac gel bidAPAP 650 mg q6h prnPT/OT prnawait ortho consultati onwill monitor Benign pro static hyperplasia 376546822 N40.1 Ornelas catheterfu urologyfin asteride 5 mg dailytamsu losin 0.8 mg dailywill monitor Gastroesop hageal reflux disease without esophagitis 336879477 K21.9 famotidine 20 mg bidwill monitor Cobalamin deficiency 190 546871 E53.8 B12 1000 mcg dailywill monitor Mixed anxi ety and depressive disorder 670559714 F41.8 mirtazapin e 15 mg dailywill monitor [id number] MARK SCHROEDER NP [facility] APR[facility] [address] [place] [address] 12/04/2022 11:16:37 12/10/2022 12:55:03 Vascular dementia 152363616 F01.50 expect declinewil l monitor and support as needed Atrial fibrillation 4943 6004 I48.0 apixaban 2.5 mg biddiltiaz em ER 120 mg daily for rate controlwil l monitor Pain of ri ght shoulder joint 1964364895 0053195 M25.511 diclofenac gel bidAPAP 650 mg q6h prnPT/OT prnawait ortho consultati onwill monitor Benign pro static hyperplasia 895300033 N40.1 Ornelas catheterf/ u urologyfin asteride 5 mg dailytamsu losin 0.8 mg dailywill monitor Gastroesop hageal reflux disease without esophagitis 979216515 K21.9 famotidine 20 mg bidwill monitor Cobalamin deficiency 190 425303 E53.8 B12 1000 mcg dailywill monitor Mixed anxi ety and depressive disorder 994771786 F41.8 mirtazapin e 15 mg dailywill monitor [id number] AUDI CAPONE [address] [address] 01/27/2023 14:41:48 01/29/2023 16:16:55 Vascular dementia 650052032 F01.50 expect declinewil l monitor and support as needed Atrial fibrillation 4943 6004 I48.0 apixaban 2.5 mg biddiltiaz em ER 120 mg daily for rate controlwil l monitor Pain of ri ght shoulder joint 5781339533 3421068 M25.511 diclofenac gel bidAPAP 650 mg q6h prnPT/OT prnawait ortho consultati onwill monitor Benign pro static hyperplasia 520369631 N40.1 Ornelas catheterf/ u urologyfin asteride 5 mg dailytamsu losin 0.8 mg dailywill monitor Gastroesop hageal reflux disease without esophagitis 315222874 K21.9 famotidine 20 mg bidwill monitor Cobalamin deficiency 190 590930 E53.8 B12 1000 mcg dailywill monitor Mixed anxi ety and depressive disorder 958584905 F41.8 mirtazapin e 15 mg dailywill monitor Asthenia 42665751 R53.1 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 monitor and support as needed Falls 112980518 R29.6 PT OT eval and treatfall precaution sfrequent safety checks [id number] MD STANISLAV Munoz [address] [place], [place] [address], [place] [address] 02/22/2023 12:39:11 02/24/2023 13:44:41 Sepsis caused by Escherichia coli 118672140 A41.51 To complete course of abx with cefuroxime 500 mg BID until 03/05 (14 day course).Wi ll add probiotic BID for 14 more days.Monit or sxs. Acute urin maciej tract infection 025522881 N30.01 As above. Chronic re tention of urine 703815097 R33.8 Continue chronic ornelas, change every 30 days.F/U with uro prn. Benign pro static hyperplasia with outflow obstruction 879009171 N40.1 As above.Cont inue tamsulosin 0.8 mg qd and finasterid e 5 mg qd.F/U with uro Atrial fibrillation 4943 6004 I48.0 Rate in good control on diltiazem ER 120 mg qdContinue eliquis 2.5 mg BID for AC.Monitor HR and bleeding risk. Pain of ri ght shoulder joint [id number] 9111649 M25.511 Continue APAP 650 mg q 6 hr prnWill use OT as ableAwaiti ng ortho consultati onMonitor Gastroesop hageal reflux disease without esophagitis 138900943 K21.9 No current sxs.Contin ue famotidine 20 mg BIDMonitor sxs Cobalamin deficiency 190 072073 E53.8 Continue vitamin B12 1000 mcg qdNo recent level, will check with tomorrow's labs, then yearly Mixed anxi ety and depressive disorder 061050465 F41.8 As above. Asthenia 45371681 R53.1 Is deconditio jen from recent illness.Ne eds PT/OT for strengthen ing, balance, gait training, safety and function.C ontinue fall precaution s.Monitor for safety. Dementia 77607433 F02.B3 Likely multifacto rial with vascular and EtOH components .Continues at baselineCo ntinue mirtazapin e 15 mg qdContinue supportive care, expect decline.Vega s guardianMo nitor mood and behaviors. Psych follows. [id number] AUDI CAPONE APRIL [address] [facility] [address] 03/03/2023 11:23:38 03/05/2023 15:37:10 Sepsis caused by Escherichia coli 900566047 A41.51 To complete course of abx with cefuroxime 500 mg BID until 03/05 (14 day course). Will add probiotic BID for 14 more days. Monitor sxs. Acute urin maciej tract infection 552803315 N30.01 cefuroxime 500 mg bid to 9ood ornelas caremonito r for symptoms [id number] MARK SCHROEDER NP [address] [address] 04/14/2023 11:08:09 04/16/2023 08:47:29 Vascular dementia 436551262 F01.50 expect declinewil l monitor and support as needed Atrial fibrillation 4943 6004 I48.0 apixaban 2.5 mg biddiltiaz em ER 120 mg daily for rate controlwil l monitor Pain of ri ght shoulder joint [id number] 9419479 M25.511 diclofenac gel bidAPAP 650 mg q6h prnPT/OT prnawait ortho consultati onwill monitor Benign pro static hyperplasia 771206800 N40.1 Ornelas catheterf/ u urologyfin asteride 5 mg dailytamsu losin 0.8 mg dailywill monitor Gastroesop hageal reflux disease without esophagitis 798337240 K21.9 famotidine 20 mg bidwill monitor Cobalamin deficiency 190 168510 E53.8 B12 1000 mcg dailywill monitor 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 Benign pro static hyperplasia with outflow obstruction 291182506 N40.1 As above.Cont inue tamsulosin 0.8 mg qd and finasterid e 5 mg qd.F/U with uro Dementia 87376866 F02.B3 Continues at baselineCo ntinue mirtazapin e 15 mg qdContinue supportive care, expect decline.Vega s guardian, needs updated guardiansh ip papers scanned into [facility].Monito r mood and behaviors. Psych follows. Mixed anxi ety and depressive disorder 420483408 F41.8 As above. Atrial fibrillation 4943 6004 I48.0 Rate remains in good control on diltiazem ER 120 mg qdContinue eliquis 2.5 mg BID for AC.Monitor HR and bleeding risk. Gastroesop hageal reflux disease without esophagitis 702171004 K21.9 No current sxs.Contin ue famotidine 20 mg BIDMonitor sxs [id number] AUDI CAPONE [address] [address] 06/16/2023 14:19:39 06/23/2023 18:09:18 Acute urinary tract infection 627015421 N30.01 levofloxin 750 mg qod x6 dosesgood ornelas caremonito r for symptoms Vascular dementia 140241 004 F01.50 expect declinewil l monitor and support as needed Atrial fibrillation 4943 6004 I48.0 apixaban 2.5 mg biddiltiaz em ER 120 mg daily for rate controlwil l monitor Pain of ri ght shoulder joint [id number] 3914569 M25.511 diclofenac gel bidAPAP 650 mg q6h prnPT/OT prnawait ortho consultati onwill monitor Benign pro static hyperplasia 761849316 N40.1 Ornelas catheterf/ u urologyfin asteride 5 mg dailytamsu losin 0.8 mg dailywill monitor Gastroesop hageal reflux disease without esophagitis 641035415 K21.9 famotidine 20 mg bidwill monitor Cobalamin deficiency 190 509500 E53.8 B12 1000 mcg dailywill monitor Mixed anxi ety and depressive disorder 735091111 F41.8 mirtazapin e 15 mg dailywill monitor Asthenia 58812708 R53.1 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 monitor and support as needed [place] 915131687 R29.6 PT OT eval and treatfall precaution sfrequent safety checks [id number] MARK GARAYAUDI EATON [address] [address] 06/21/2023 13:07:48 06/23/2023 18:53:43 Acute urinary tract infection 621956683 N30.01 levofloxin 750 mg qod x6 dosesgood ornelas caremonito r for symptoms Vascular dementia 524353 004 F01.50 expect declinewil l monitor and support as needed [place] 859196411 R29.6 PT OT eval and treatfall precaution sfrequent safety checks [id number] MARK AUDI SCHROEDER [address] [address] 06/30/2023 10:16:19 07/13/2023 09:45:01 Acute urinary tract infection 582173890 N30.01 levofloxin 750 mg qod x6 doses-comp letedgood ornelas caremonito r for symptoms Benign pro static hyperplasia 326571731 N40.1 Ornelas catheterf/ u urologyfin asteride 5 mg dailytamsu losin 0.8 mg dailywill monitor [id number] Gail MedinaAlysa Pennington [address] [address] 08/20/2023 10:35:03 08/31/2023 10:01:42 Benign prostatic hyperplasia 565789849 N40.1 continue with chronic ornelas, change monthly and prncontinu e finasterid e 5mg dailyfollo wed by urology Acute urin maciej tract infection 565076402 N30.01 last UTI in hospital 06/13/23 tx with [place] ntinue vit c 500mg BID UTI procontinu e D-mannose 1g BID UTI promonitor , change ornelas monthly Atrial fibrillation 4943 6004 I48.0 chronic, stable. RCcontinue diltiazem 120mg dailyeliqu is 2.5mg BID Cobalamin deficiency 190 740800 E53.8 chronic stablecont inue supplement [id number] NADIRA BROOKS, RASHAWN [address] [address] 09/13/2023 11:11:07 09/15/2023 09:51:03 Herpes zoster 6339531 B02.9 valacyclov ir 1000 mg q12 for 5 daysgabape ntin 300 mg q 6 prn for 5 daysbenadr yl 25 mg q6 hours for pruritis prntylenol 650 mg prn for discomfort .monitor for worsening sx , nursing to update provider with changesmon itor VS qshiftplac e on precaution s per facility protocol.p t to wear loose clothing [id number] RASHAWN WAGGONER [address] [address] 09/27/2023 12:16:45 09/30/2023 12:31:03 Acute urinary tract infection 277852742 N30.01 with acute encephalop athytx with IV linezolid d/t renal function and ceftriaxon edischarge d to facility on Cefuroxime 500 MG BID until inezol id 600 MG BID until 10/03 Traumatic hematuria 9556 7008 R31.9 tx with [facility]; now resolved Herpes zoster 7119724 B0 2.9 dx with shinglesva lacyclovir 1000 mg q12 for 5 daysgabape ntin 300 mg q 6 prn for 5 daysbenadr yl 25 mg q6 hours for pruritis prntylenol 650 mg prn for discomfort .monitor for worsening sx , nursing to update provider with changesmon itor VS qshiftplac e on precaution s per facility protocol. Essential hypertension 73091106 I10 diltiazem 120 mg dailymonit or BP Benign pro static hyperplasia 015671034 N40.1 chronic ornelas catheterco ntinue finasterid e and flomax Atrial fibrillation 4943 6004 I48.0 continue eliquiscon tinue cardizemmo nitor HR Nutritional disorder 249 2008 E44.0 underweigh t 15.7nutrit ional supplement s TID with mealsmonit or monthly weights Acute kidney injury 1466 9001 N17.9 resolved [id number] RASHAWN WAGGONER [address] [address] 09/30/2023 09:22:37 10/05/2023 11:35:15 Acute urinary tract infection 031950806 N30.01 with acute encephalop athytx with IV linezolid d/t renal function and ceftriaxon edischarge d to facility on Cefuroxime 500 MG BID until inezol id 600 MG BID until 10/03 Herpes zoster 4441966 B0 2.9 dx with shinglesva lacyclovir 1000 mg q12 for 5 days-compl etedgabape ntin 300 mg q 6 prn for 5 days -completed benadryl 25 mg q6 hours for pruritis prntylenol 650 mg prn for discomfort .monitor for worsening sx , nursing to update provider with changesmon itor VS qshiftplac e on precaution s per facility protocol. Essential hypertension 12570895 I10 diltiazem 120 mg dailymonit or BP Benign pro static hyperplasia 568753576 N40.1 chronic ornelas catheterco ntinue finasterid e and flomax Atrial fibrillation 4943 6004 I48.0 continue eliquiscon tinue cardizemmo nitor HR Nutritional disorder 249 2008 E44.0 underweigh t 15.7nutrit ional supplement s TID with mealsmonit or monthly weights [id number] RASHAWN WAGGONER [address] [address] 10/07/2023 10:51:23 10/11/2023 14:34:12 Acute urinary tract infection 457730665 N30.01 abx completed 10/04/23 Herpes zoster 2879027 B0 2.9 dx with shinglesan tiviral completed. Essential hypertension 63453710 I10 diltiazem 120 mg dailymonit or BP Benign pro static hyperplasia 172902631 N40.1 chronic ornelas catheterco ntinue finasterid e and flomax Atrial fibrillation 4943 6004 I48.0 continue eliquiscon tinue cardizemmo nitor HR Nutritional disorder 249 2008 E44.0 will order weight time 3 days at 6am for accuracy.u nderweight 15.7nutrit ional supplement s TID with mealsmonit or monthly weights [id number] RASHAWN WAGGONER [address] [address] 10/12/2023 08:24:59 10/25/2023 13:43:58 Acute urinary tract infection 502145589 N30.01 abx completed 10/04/23 Herpes zoster 6322029 B0 2.9 rash resolving, no open areasblist er healed, skin redness continues. antiviral completed. Essential hypertension 61465130 I10 diltiazem 120 mg dailymonit or BP Benign pro static hyperplasia 638167069 N40.1 chronic ornelas catheterco ntinue finasterid e and flomax Nutritional disorder 249 2008 E44.0 appetite wax and wanesnoted with> than 10 lbs weight lossnursin g to encourage supplement al shakes .underweig ht 15.7nutrit ional supplement s TID with mealsmonit or monthly weights [id number] RASHAWN WAGGONER [address] [address] 10/19/2023 10:54:51 10/26/2023 11:03:11 Acute urinary tract infection 354605896 N30.01 resolved Herpes zoster 1131674 B0 2.9 resolved Essential hypertension 47756567 I10 diltiazem 120 mg dailymonit or BP Benign pro static hyperplasia 866608473 N40.1 chronic ornelas catheterco ntinue finasterid e and flomax Nutritional disorder 249 2009 E44.0 appetite wax and wanesbette r today, noted eating breakfast. noted with> than 10 lbs weight lossnursin g to encourage supplement al shakes .underweig ht 15.7nutrit ional supplement s TID with mealsmonit or monthly weights [id number] Estefanía Witt MD [address] [address] 10/22/2023 18:41:41 12/13/2023 13:58:00 Adult failure to thrive syndrome 696145851 R62.7 With marked wt. loss.Will add ensure/reyna st 8 oz BID and get senior coldfusion developer consult.Al ready on mirtazapin e 15 mg qd.Monitor wts Dementia 78805247 F02.B3 Continues at baselineCo ntinue mirtazapin e 15 mg qdContinue supportive care, expect decline.Gary mcqueen guardian.M onitor mood and behaviors. Psych follows. Chronic re tention of urine 152533683 R33.8 No recent issuesCont inue chronic ornelas, change every 30 days.F/U with uro prn. Benign pro static hyperplasia with outflow obstruction 664308240 N40.1 As above.Cont inue tamsulosin 0.8 mg qd and finasterid e 5 mg qd.F/U with uro Mixed anxi ety and depressive disorder 648917254 F41.8 As above. Atrial fibrillation 4943 6004 I48.0 Rate remains in good control on diltiazem ER 120 mg qdContinue eliquis 2.5 mg BID for AC.Monitor HR and bleeding risk. Gastroesop hageal reflux disease without esophagitis 686849118 K21.9 No current sxs.Contin ue famotidine 20 mg BIDMonitor sxs [id number] [facility] [address] [place] [phone] 10/27/2023 09:18:00 11/02/2023 14:04:27 Essential hypertension 20840052 I10 diltiazem 120 mg dailymonit or BP Benign pro static hyperplasia 280472672 N40.1 chronic ornelas catheterco ntinue finasterid e and flomax Nutritional disorder 249 2008 E44.0 appetite wax and wanesnoted with> than 10 lbs weight lossnursin g to encourage supplement al shakes .underweig ht 15.7nutrit ional supplement s TID with mealsmonit or monthly weights Urinary tr act infectious disease 22377471 N39.0 Started on Methenamin e Hippurate 1 GM for preventati ve measures. [id number] RASHAWN WAGGONER [address] [address] 11/04/2023 09:11:34 11/09/2023 10:00:16 Essential hypertension 03514682 I10 diltiazem 120 mg dailymonit or BP Benign pro static hyperplasia 861965663 N40.1 chronic ornelas catheterco ntinue finasterid e and flomax Nutritional disorder 249 2008 E44.0 appetite wax and wanesnoted with> than 10 lbs weight lossnursin g to encourage supplement al shakes .underweig ht 15.7nutrit ional supplement s TID with mealsmonit or monthly weights Urinary tr act infectious disease 85880313 N39.0 Started on Methenamin e Hippurate 1 GM for preventati ve measures. [id number] NADIRA BROOKS, [address] [address] 11/16/2023 08:30:13 11/22/2023 12:12:26 Urinary tract infectious disease 27081472 N39.0 Sepsis secondary to UTI due to chronic indwelling FoleyConti nue oral amoxicilli n and oral fluconazol e (end date both 11/21) for total of 14 day courseChan ge foleys every 3-4 weeks and use catheter secure Acute kidney injury 1466 9001 N17.9 DOUGLAS secondary to ATNresolve d. Blood in urine 90771869 R31.9 baseline he will present with hematuria in ornelas catheter.C hronic Ornelas in place.abril tor Atrial fibrillation 4943 6004 I48.0 continue eliquis 2.5 mg dailyconti nue cardizem- d/c in acute care due to bradycardi a, monitor need to restart.mo nitor HR Dementia 42490715 F02.B3 Continue mirtazapin e 15 mg qd Gastroesop hageal reflux disease without esophagitis 825846202 K21.9 Continue famotidine 20 mg BIDMonitor sxs Cobalamin deficiency 190 873627 E53.8 Ascorbic Acid 500 MG dailyCyano cobalamin 1000 mcg daily Benign pro static hyperplasia 174589550 N40.1 chronic ornelas catheterco ntinue finasterid e 5 mg daily [id number] RASHAWN WAGGONER [address] [address] 2023 11:24:22 11/26/2023 08:45:18 Urinary tract infectious disease 14015480 N39.0 antibiotic s completed. Sepsis secondary to [...] monitor need to restart.mo nitor HR Dementia 06066405 F02.B3 Continue mirtazapin e 15 mg qd Gastroesop hageal reflux disease without esophagitis 554218751 K21.9 Continue famotidine 20 mg BIDMonitor sxs [id number] RASHAWN WAGGONER [address] [address] 12/02/2023 09:46:58 12/07/2023 11:56:04 Urinary tract infectious disease 63562322 N39.0 antibiotic s completed. Change ornelas every 3-4 weeks and use catheter secure Atrial fibrillation 4943 6004 I48.0 continue eliquis 2.5 mg dailyconti nue cardizem- d/c in acute care due to bradycardi a, monitor need to restart.mo nitor HR 74 0n 12/01- has been stable 70-80s. Dementia 47689081 F02.B3 Continue mirtazapin e 15 mg qd Gastroesop hageal reflux disease without esophagitis 555270350 K21.9 Continue famotidine 20 mg BIDMonitor sxs [id number] RASHAWN WAGGONER [address] [address] 12/06/2023 12:48:19 12/07/2023 12:34:24 Atrial fibrillation 12240449 I48.0 continue eliquis 2.5 mg dailyconti nue cardizem- d/c in acute care due to bradycardi a, monitor need to restart.HR stable. denies any chest pain, SOB or palpitatio ns. 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 [id number] RASHAWN WAGGONER [address] [address] 12/14/2023 10:28:27 12/17/2023 08:36:28 Urinary tract infectious disease 29042870 N39.0 resolved Acute kidney injury 1466 9001 N17.9 DOUGLAS secondary to ATNresolve d. Blood in urine 19201773 R31.9 baseline he will present with hematuria in ornelas catheter.C hronic Ornelas in place.abril tor Atrial fibrillation 4943 6004 I48.0 continue eliquis 2.5 mg daily Dementia 76731659 F02.B3 Continue mirtazapin e 15 mg qd Gastroesop hageal reflux disease without esophagitis 916446032 K21.9 Continue famotidine 20 mg BID Cobalamin deficiency 190 570801 E53.8 Ascorbic Acid 500 MG dailyCyano cobalamin 1000 mcg daily Benign pro static hyperplasia 685593384 N40.1 chronic ornelas catheterco ntinue finasterid e 5 mg daily [id number] RASHAWN WAGGONER [address] [address] 12/28/2023 10:37:21 12/31/2023 14:58:13 Urinary tract infectious disease 33534875 N39.0 Cefuroxime 250 mg BID for 7 dayscontin ue Acidophilu s Oral Capsule daily. Benign pro static hyperplasia 226469652 N40.1 chronic ornelas catheter -patent and draining to gravity today.cont inue finasterid e 5 mg dailynursi ng to provide ornelas care per facility protocol qshift. [id number] RASHAWN WAGGONER [address] [address] 02/08/2024 12:48:44 02/09/2024 14:43:43 Dementia 22580135 F02.B3 noted with an agitation, hitting himself in the head, there is no injury.duncan sing able to redirect patient behavior, although he is redirectab le from self harm he continues to be noted with agitation. nursing reports that patient gets easily agitated with too environmen tabby stimuli.wi ll add trazodone 25 mg q 8 prn for anxiety for 14 days. [id number] RASHAWN WAGGONER [address] [address] 03/07/2024 11:27:24 03/09/2024 14:27:31 Dementia 68614821 F02.B3 with agitation and anxietyrec ently trial on 14 days trazadone with improvemen t with behaviors per nursing.re cently seen by psych with recommenda tions to schedule daily at hswill add trazadone 25 mg at hs and monitor effectiven ess. [id number] RASHAWN WAGGONER [address] [address] 03/13/2024 10:00:17 03/15/2024 10:09:29 Atrial fibrillation 39368058 I48.0 continue eliquis 2.5 mg daily Dementia 01242108 F02.B3 Continue mirtazapin e 15 mg qdrecently trial on 14 days trazadone with improvemen t with behaviors per nursing.no w on trazadone 25 mg at hs for anxiety with agitation Gastroesop hageal reflux disease without esophagitis 764304127 K21.9 Continue famotidine 20 mg BID Cobalamin deficiency 190 492069 E53.8 Ascorbic Acid 500 MG dailyCyano cobalamin 1000 mcg daily Benign pro static hyperplasia 768229494 N40.1 chronic ornelas catheterco ntinue finasterid e 5 mg daily [id number] RASHAWN WAGGONER [address] [address] 03/27/2024 10:56:25 03/28/2024 13:30:57 Atrial fibrillation 95743028 I48.0 continue eliquis 2.5 mg dailyno abn bleeding or bruisingoc c hematuria that resolves with irrigation . Dementia 46010762 F02.B3 Continue mirtazapin e 15 mg qdrecently trial on 14 days trazadone with improvemen t with behaviors per nursing.cn tinue trazadone 25 mg at hs for anxiety with agitation Gastroesop hageal reflux disease without esophagitis 318981491 K21.9 Continue famotidine 20 mg BIDno reported GI upset Cobalamin deficiency 190 877942 E53.8 Ascorbic Acid 500 MG dailyCyano cobalamin 1000 mcg daily Benign pro static hyperplasia 142119869 N40.1 chronic ornelas catheterco ntinue finasterid e 5 mg dailyPatie nt had planned procedure for plan suprapubic ornelas on 03/21- had to be reschedule d due to transporta tion. Adult fail ure to thrive syndrome 348833771 R62.7 02/25/24 ensures increased from BID to TIDof note patient noted with 6 lb weight gaincontin ue ensure/reyna st 8 oz TIDmirtaza pine 15 mg qd.Monitor wts [id number] RASHAWN WAGGONER [address] [address] 03/30/2024 11:03:41 03/31/2024 12:43:23 Benign prostatic hyperplasia 950087806 N40.1 chronic ornelas catheterco ntinue finasterid e 5 mg dailyPatie nt had planned procedure for plan suprapubic ornelas on 03/21- had to be reschedule d due to transporta tion. Retention of urine due to occlusion of Ornelas catheter 010525215 R33.8 see hpiHX of BPH, no coude catheter available to replaced current ornelas, patient previously sent to ED for ornelas replacemen t due to difficult insertion. will send to ED for evaluation [id number] RASHAWN WAGGONER [address] [address] 04/17/2024 11:47:14 04/18/2024 16:02:01 Benign prostatic hyperplasia 093211825 N40.1 now with suprapubic catheter -continue finasterid e 5 mg daily Dementia 35788709 F02.B3 can be impulsive, easily agitatedex pect declineCon tinue mirtazapin e 15 mg qdcontinue trazadone 25 mg at hs for anxiety with agitation Suprapubic urinary catheter in situ 355203146 Z96.0 monitor for sx of site infection update provider with changes.pa tent and drainingap ply abdominal binder to prevent accidental pulling out.change catheter tubing per urology recs. [id number] RASHAWN WAGGONER [facility] [address] [place] [address] 04/20/2024 13:55:50 04/21/2024 11:40:27 Benign prostatic hyperplasia 379226655 N40.1 now with suprapubic catheter -continue finasterid e 5 mg daily Dementia 70351984 F02.B3 can be impulsive, easily agitatedex pect declineCon tinue mirtazapin e 15 mg qdcontinue trazadone 25 mg at hs for anxiety with agitation Suprapubic urinary catheter in situ 980796976 Z96.0 pt incidental ly pulled out stitch, there has been no concerns, site is clean and dry no drainagemo nitor for sx of site infection update provider with changes.pa tent and drainingap ply abdominal binder to prevent accidental pulling out.change catheter tubing per urology recs. [id number] RASHAWN WAGGONER [address] [address] 04/24/2024 08:37:53 04/26/2024 09:17:19 Benign prostatic hyperplasia 560760740 N40.1 now with suprapubic catheter -continue finasterid e 5 mg daily Dementia 44183552 F02.B3 stable today, mood pleasant .can be impulsive, easily agitatedex pect declineCon tinue mirtazapin e 15 mg qdcontinue trazadone 25 mg at hs for anxiety with agitation Suprapubic urinary catheter in situ 322987307 Z96.0 pt incidental ly pulled out stitch, there has been no concerns, site is clean and dry no drainagemo nitor for sx of site infection update provider with changes.pa tent and drainingap ply abdominal binder to prevent accidental pulling out.change catheter tubing per urology recs. [id number] RASHAWN WAGGONER [address] [address] 04/27/2024 11:14:21 05/01/2024 15:09:09 Benign prostatic hyperplasia 253352251 N40.1 now with suprapubic catheter -continue finasterid e 5 mg daily Dementia 67156376 F02.B3 stablecan be impulsive, easily agitatedex pect declineCon tinue mirtazapin e 15 mg qdcontinue trazadone 25 mg at hs for anxiety with agitation Suprapubic urinary catheter in situ 024595794 Z96.0 pt incidental ly pulled out stitch, there has been no concerns, site is clean and dry no drainagemo nitor for sx of site infection update provider with changes.pa tent and drainingap ply abdominal binder to prevent accidental pulling out.change catheter tubing per urology recs. Essential hypertension 88572094 I10 stabledilt iazem 120 mg dailymonit or BP [id number] RASHAWN WAGGONER [address] [address] 05/05/2024 12:40:01 05/08/2024 13:34:52 Benign prostatic hyperplasia 751235316 N40.1 now with suprapubic catheter -continue finasterid e 5 mg daily Dementia 60521822 F02.B3 stablecan be impulsive, easily agitatedex pect declineCon tinue mirtazapin e 15 mg qdcontinue trazadone 25 mg at hs for anxiety with agitation Suprapubic urinary catheter in situ 338229729 Z96.0 pt incidental ly pulled out stitch, there has been no concerns, site is clean and dry no drainagemo nitor for sx of site infection update provider with changes.pa tent and drainingap ply abdominal binder to prevent accidental pulling out.change catheter tubing per urology recs. Essential hypertension 47125871 I10 stabledilt iazem 120 mg dailymonit or BP [id number] RASHAWN WAGGONER [address] [address] 05/15/2024 12:19:47 05/31/2024 12:02:09 Benign prostatic hyperplasia 945999299 N40.1 now with suprapubic catheter -continue finasterid e 5 mg daily Dementia 49697382 F02.B3 stablecan be impulsive, easily agitatedex pect declineCon tinue mirtazapin e 15 mg qdcontinue trazadone 25 mg at hs for anxiety with agitation Suprapubic urinary catheter in situ 661026299 Z96.0 monitor for sx of site infection update provider with changes.pa tent and drainingab dominal binder to prevent accidental pulling out.change catheter tubing per urology recs. Essential hypertension 59474113 I10 stabledilt iazem 120 mg dailymonit [place] BP [id number] RASHAWN WAGGONER [address] [id number] 5 05/29/2024 11:13:49 05/31/2024 12:05:16 Gastrointestinal hemorrhage [id number] K92.2 see hpicontinu e sucralfate 1g for 14 days after mealsprilo sec 20 mg daily for 8 weeksconti nue pepcid 20 mg BIDavoid NSAIDavoid lying flat for 1 hour after eating- recommend OOB for meals Aspiration pneumonia 422 034874 J69.0 tx with IV zosyn in acute caredischa rge on augmentin BID for 5 daysavoid lying flat for 1 hour after eating- recommend OOB for meals Acute urin maciej tract infection [id number] N30.01 Enterococc us faecalis.c ontinue Augmentinh igh risk for recurrent due to s/p ornelas Acute kidney injury 1466 9001 N17.9 Likely from renal hypoperfus ion/hypote nsion. noted with metabolic acidosisHX ATNavoid nephrotoxi c meds Bradycardia 35999170 R00 .1 see hpimonitor HRavoid beta blockers Umair hematuria 75520325 5 R31.0 noted with about 700 cc of dark red, dark cranberry colored urine can not see through in ornelas catheter tubing and bag.he is on eliquis BIDwill send to ED for evaluation due to significan t amount most likely will need irrigation . [id number] RASHAWN WAGGONER [address] [place] [phone] 5 06/05/2024 12:03:56 06/07/2024 11:45:22 Gastrointestinal hemorrhage [id number] K92.2 no reported coffee ground emesis since returningc ontinue sucralfate 1g for 14 days after mealsprilo sec 20 mg daily for 8 weeksconti nue pepcid 20 mg BIDavoid NSAIDavoid lying flat for 1 hour after eating- recommend OOB for meals Aspiration pneumonia 422 032507 J69.0 completed abxavoid lying flat for 1 hour after eating- recommend OOB for meals Acute urin maciej tract infection 760753793 N30.01 abx completed Umair hematuria 31702793 5 R31.0 12: pink tingeddisc ussed with nursing to monitor outputcan restart eliquis [id number] RASHAWN WAGGONER APRIL [address] [place] [address] [phone] 5 06/08/2024 08:39:45 06/09/2024 12:00:08 Gastrointestinal hemorrhage 90007102 K92.2 no reported coffee ground emesis since returningc ontinue sucralfate 1g for 14 days after mealsprilo sec 20 mg daily for 8 weeksavoid NSAIDavoid lying flat for 1 hour after eating- recommend OOB for meals Umair hematuria 32103451 5 R31.0 suprapubic catheter with geovani urine noted todaydiscu ssed with nursing to monitor outputcan restart eliquis 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 Rare yeast and pseudohyph ae are present, consistent with Violette speciesnow on fluconazol e 200 mg qd for 14 dayscontin ue PPI and B9Lwgsj extend carafate 1 gm after meals QD. [id number] RASHAWN WAGGONER [address] [address]566 5 06/12/2024 10:18:47 06/13/2024 14:16:39 Gastrointestinal hemorrhage 59359175 K92.2 no reported coffee ground emesis since returningc ontinue sucralfate 1g for 14 days after mealsprilo sec 20 mg daily for 8 weeksavoid NSAIDavoid lying flat for 1 hour after eating- recommend OOB for mealsmonit or weekly labs for now Umair hematuria 96168284 5 R31.0 suprapubic catheter with geovani urine noted todaydiscu ssed with nursing to monitor outputcont inue eliquis Ulcerative esophagitis 934485332 K22.10 esophagus biopsy resulted 06/06 showed Ulcerative esophagiti s. Rare yeast and pseudohyph ae are present, consistent with Violette speciesnow on fluconazol e 200 mg qd for 14 dayscontin ue PPIwill extend carafate 1 gm after meals QD. [id number] RASHAWN WAGGONER [address] [phone] 5 06/15/2024 08:20:07 06/16/2024 13:24:29 Gastrointestinal hemorrhage 59267385 K92.2 no reported coffee ground emesis since returningc ontinue sucralfate prilosec 20 mg daily for 8 weeksavoid NSAIDavoid lying flat for 1 hour after eating- recommend OOB for mealsmonit or weekly labs for now Umair hematuria 74952986 5 R31.0 suprapubic catheter with geovani urine noted todaydiscu ssed with nursing to monitor outputcont inue eliquis Ulcerative esophagitis 316957545 K22.10 esophagus biopsy resulted 06/06 showed Ulcerative esophagiti s. Rare yeast and pseudohyph ae are present, consistent with Violette speciesnow on fluconazol e 200 mg qd for 14 days until 06/21conti nue PPIwill extend carafate 1 gm after meals QD. 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 [id number] RASHAWN WAGGONER [address] [phone] 5 06/19/2024 10:41:37 06/20/2024 12:04:02 Ulcerative esophagitis 387431271 K22.10 esophagus biopsy resulted 06/06 showed Ulcerative esophagiti s. Rare yeast and pseudohyph ae are present, consistent with Violette speciesnow on fluconazol e 200 mg qd for 14 days until 06/21conti nue PPIwill extend carafate 1 gm after meals QD. Gastrointe stinal hemorrhage 75392304 K92.2 no reported coffee ground emesis since returning ontinue sucralfate prilosec 20 mg daily for 8 weeksavoid NSAIDavoid lying flat for 1 hour after eating- recommend OOB for mealsmonit or weekly labs for now Urethral u rinary catheter in situ for fdc use 8270599806 104 Z96.0 prone to frequent UTI; recently completed ABX.Ornelas patent and draining.C hange ornelas every 3-4 weeks and use catheter securenurs ing to do ornelas care twice daily encouraged . [id number] RASHAWN WAGGONER [address] [phone] 5 06/26/2024 10:30:09 06/27/2024 09:52:09 Ulcerative esophagitis 454388177 K22.10 esophagus biopsy resulted 06/06 showed Ulcerative esophagiti s. Rare yeast and pseudohyph ae are present, consistent with Violette speciesnow on completed fluconazol e on 07/01will extend carafate 1 gm after meals QD. Gastrointe stinal hemorrhage 31974286 K92.2 no reported coffee ground emesis since returning ontinue sucralfate prilosec 20 mg daily for 8 weeksavoid NSAIDavoid lying flat for 1 hour after eating- recommend OOB for mealsmonit or weekly labs for now Urethral u rinary catheter in situ for fdc use 4449325181 104 Z96.0 prone to frequent UTI; recently completed ABX.Ornelas patent and draining.C hange ornelas every 3-4 weeks and use catheter securenurs ing to do ornelas care twice daily encouraged . Atrial fibrillation 4943 6004 I48.0 continue eliquis 2.5 mg daily- monitor for hematuriao cc hematuria that resolves with irrigation . Benign pro static hyperplasia 590978588 N40.1 with suprapubic catheter -continue finasterid e 5 mg daily Dementia 51640747 F02.B3 stable at his baselineca n be impulsive, easily agitatedex pect declineCon tinue mirtazapin e 15 mg qdcontinue trazadone 25 mg at hs for anxiety with agitation Essential hypertension 31600571 I10 stabledilt iazem 120 mg dailymonit or BP [id number] RASHAWN WAGGONER [address] [phone] 5 10/01/2024 10:54:39 10/05/2024 16:06:42 Urethral urinary catheter in situ for fdc use 0899893648 104 Z96.0 recurrent UTI Hxwill start on PPX abxmacrobi d [facility] Atrial fibrillation 4943 6004 I48.0 stablerate controlled continue eliquis 2.5 mg daily- Benign pro static hyperplasia 567651461 N40.1 with suprapubic catheter -continue finasterid e 5 mg daily Dementia 13827443 F02.B3 stable at his baselineca n be impulsive, easily agitatedex pect declineCon tinue mirtazapin e 15 mg qdcontinue trazadone 25 mg at hs for anxiety with agitation Essential hypertension 42313494 I10 stabledilt iazem 120 mg dailymonit or BP [id number] Rajesh Son MD [address] [phone] 5 10/04/2024 11:48:11 10/05/2024 16:26:16 Atrial fibrillation 15885325 I48.0 eliquis 2.5 mg bidmonitor for rate control Benign pro static hyperplasia 235733641 N40.1 followed by urology Dementia 70931598 F02.B3 baseline dementia with behaviorsc urrently calmmonito r for behaviorsu pdate psych with concerns Recurrent urinary tract infection 484750363 N30.20 suprapubic cath in placenow on macrobid 100 mg qd with cath change q 3 weeksmonit or for effectcoor dinate with urology [id number] RASHAWN WAGGONER [address] [place] [address] [place] [address] 5 01/10/2025 05:48:25 01/11/2025 11:05:50 Atrial fibrillation 09113690 I48.0 stablerate controlled continue eliquis 2.5 mg daily- Benign pro static hyperplasia 209794935 N40.1 with suprapubic catheter -continue finasterid e 5 mg daily Dementia 78824100 F02.B3 stableCont inue mirtazapin e 15 mg qdcontinue trazadone 25 mg at for anxiety with agitation Essential hypertension 14983197 I10 stabledilt iazem 120 mg dailymonit or BP Suprapubic urinary catheter in situ 247254496 Z93.59 696534 monitor for sx of site infection update provider with changes.pa tent and drainingab dominal binder to prevent accidental pulling out.change catheter tubing per urology recs.recur rent UTI Hxcont PPX abxmacrobi d [facility] to be changed q 3weeks [id number] MD STANISLAV Munoz [address] [place] [address] [place] [phone] 5 01/18/2025 18:41:55 01/23/2025 10:32:44 Adult failure to thrive syndrome 317934867 R62.7 With marked wt. loss since here, but stable around 90# the past few months.Con tinue supplement s as ordered.Co ntinue mirtazapin e 15 mg qd.Monitor wts Dementia 41208399 F02.B3 Continues at baselineCo ntinue mirtazapin e 15 mg qd and trazadone 25 mg BID.Contin ue supportive care, expect decline.Gary mcqueen guardian.M onitor mood and behaviors. Psych follows. Chronic re tention of urine 437455331 R33.8 See HPI.Contin ue suprapubic cath with routine changes.F/ U with uro as planned. 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 Atrial fibrillation 4943 6004 I48.0 Had bradycardi a when ill, now back to nl since return to facility.O n no rate controllin g meds.[place] nue eliquis 2.5 mg BID for AC.Monitor HR and bleeding risk. Gastroesop hageal reflux disease without esophagitis 260671365 K21.9 No current sxs.Has been off famotidine since 05/2024 with no ill effects.Mo nitor GI sxs Essential hypertension 67638221 I10 Continues in good control on no meds.Monit or BP and labs. Suprapubic urinary catheter in situ 224984276 Z93.59 550028 As above.Cont inue phenazopyr idine 100 mg TID for bladder spasms and can give 100 mg TID prn for breakthrou gh spasms.Mon itor. Recurrent urinary tract infection 753829638 N39.0 901665 Unclear if recent illness was due to UTI as cx had mixed growth.Con tinue ascorbic acid 500 mg BID, methanamin e 1 gm BID, and nitrofuran toin 100 mg qhs all for UTI prophylaxi s.Monitor for sxs. Acute kidney injury 1466 9001 N17.8 6949800 Likely due to obstructio n and sepsis.Wor [...] Member ID [place] Member ID Guarantor Name 01/10/2025 1 [place]: [employer] Joel Acevedo [id number] Joel Acevedo 01/10/2025 2 [place] [facility] [id number] Joel Acevedo Notes Date Note Type Note Provider Name and Address Organization Details Recorded Time 06/26/2024 text/html ROS as noted in the HPI This is a 78 yo male LTC resident seen for routine rounding visit. He has been at his baseline in NAD. There are no acute nursing concerns. He is dependent on nursing staff to meet health care needs. He prefers to stay in his room, anxiety increases when he is out of his room. NN reviewed. RASHAWN WAGGONER [address] [facility], [address], [place], [address], [facility] 06/26/2024 13:20:51 10/01/2024 text/html ROS as noted in the HPI This is a 78 yo male LTC [...] aware or UA results. RASHAWN WAGGONER [address] [facility], [address], [place], [address], [facility] 10/02/2024 09:10:20 10/04/2024 text/html Patient is a 78 yo male resident seen for MD visit. Patient with baseline suprapubic cath with recurrent UTI. Now started on prophylaxis with cath change q 3 weeks. Discussed with nursing. Patient lying in bed in NAD with baseline impaired cognition Rajesh Son MD [address] [facility], [address], [place], [address], [facility] 10/04/2024 11:54:32 01/10/2025 text/html ROS as noted in the HPI 78 yr old male LTC resident seen for routine rounding Medically Joel has been stable, there has been no recent hospital visit. He is at his baseline with unchanged or worsening behaviors, he continues at times to refused ADLs care. other ugarte he is compliant with meds. He is followed by and recently trazodone and remeron were adjusted. There is no acute nursing concerns. RASHAWN WAGGONER [address] [facility], [address], [place], [address], [facility] [employer] [facility] 01/11/2025 18:28:49 01/18/2025 text/html I am seeing this 79 [...] It had just been replaced on 01/11. 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 Estefanía Witt MD [address] [facility], [address], [place], [address], [facility] 01/18/2025 22:41:55
[2025-04-09 07:17] LABS: Anion Gap 12 (12-20); Blood Urea Nitrogen 32 mg/dL (9-16); Calcium 8.5 mg/dL (8.4-10.2); Carbon Dioxide 23 mmol/L (22-29); Chloride 111 mmol/L (96-108); Estimated Glomerular Filt Rate > 60; Potassium 4.1 mmol/L (3.3-5.1); Sodium 142 mmol/L (135-145)
== END 2025-04-09 06:41 | disposition home or self-care (01) ==
LOC: HO.MMNH3L 06:40
PROVIDERS: Visit Provider Family Medicine
DX: G93.41 Metabolic encephalopathy (principal); N39.0 Urinary tract infection, site not specified; F41.8 Other specified anxiety disorders
CPT/HCPCS: 36415; 80048; 85025

== ENCOUNTER 2025-05-11 12:57 | Outpatient (REF) | payer MEDICARE, MEDICAID, SELFPAY ==
[2025-05-11 13:51] LABS: Alanine Aminotransferase 21 U/L (0-40); Albumin Level 4.1 g/dL (3.5-5.0); Alkaline Phosphatase 75 U/L (39-117); Anion Gap 15 (12-20); Aspartate Amino Transferase 29 U/L (5-37); Blood Urea Nitrogen 36 mg/dL (9-16); Calcium 9.0 mg/dL (8.4-10.2); Carbon Dioxide 23 mmol/L (22-29); Chloride 106 mmol/L (96-108); Estimated Glomerular Filt Rate 47; Potassium 4.0 mmol/L (3.3-5.1); Sodium 140 mmol/L (135-145); Total Protein 6.8 g/dL (6.5-8.0)
[2025-05-11 13:52] LABS: Hematocrit 34.7 % (42.0-52.0); Hemoglobin 11.2 g/dl (14.0-18.0); Imm Gran Abs Auto 0.07 X10*3/uL (0.00-0.03); Imm Gran Pct Auto 0.6 % (0.0-0.4); Lymphocytes Absolute Auto 0.3 X10*3/uL (1.2-4.9); MANUAL DIFF FLAG SCAN; Mean Corpuscular HGB Conc 32.3 g/dl (31.0-36.0); Mean Corpuscular Hemoglobin 29.9 pg (27.0-33.0); Mean Corpuscular Volume 92.8 fL (80.0-98.0); NRBC Abs Auto 0.000 X10*3/uL (0.0-0.012); NRBC Pct Auto 0.0 /100WBC (0.0-0.2); Platelet Count 243 X10*3/uL (160-400); Red Blood Count 3.74 X10*6/uL (4.60-5.80); SCAN SMEAR FLAG 1; White Blood Count 12.7 X10*3/uL (4.8-10.8)
[2025-05-11 14:03] LABS: Procalcitonin 0.38 ng/mL
--- OUTSIDE RECORDS SUMMARY | 2025-05-11 15:27 | XMS_ITS | Data Portability ---
Author Organization [facility], Main Office Address [address] [place] [address] Care Team Providers Care Lapping Machine Operator Name Role Phone STANISLAV CHEN 3RD FLOOR OTHER [phone] Assessment Encounter Date Assessment Date Assessment LastModified [...] Organization Details Recorded Time Benign prostatic hyperplasia 881069078 Active 2021 MARK SCHROEDER NP [address], [address], [place], [address], [facility] 2 12:42:30 Vascular dementia 575864342 Active 2021 MARK SCHROEDER NP [address], [address], [place], [address], [facility] 2 12:42:36 Constipatio n 36733633 Active 2021 MARK SCHROEDER NP [address], [address], [place], [address], [facility] 2 12:42:45 Atrial fibrillatio n 60702889 Active 2021 MARK SCHROEDER NP [address], [address], [place], [address], [place] [facility] 2 12:42:54 Falls 989445511 Active 2021 MARK SCHROEDER NP [address], [address], [place], [address], [facility] 2 12:44:39 Gastroesoph ageal reflux disease without esophagitis 555589112 Active 2021 MARK SCHROEDER NP [address], [address], [place], [address], [facility] 2 12:57:57 Acute urinary tract infection 707291363 Active 2021 MARK SCHROEDER NP [address], [address], [place], [address], [facility] 2 14:13:29 Asthenia 36072685 Active 2021 Estefanía Witt MD [address], [place], [address], [facility] 2 16:45:01 Fever 952522669 Active 2021 MARK SCHROEDER NP [address], [place], [address], [facility] 2 10:07:39 COVID-19 730728680 Active 2021 MARK SCHROEDER NP [address], [place], [address], [facility] 2 11:15:20 Bacteremia 7092644 Active 2022 MARK SCHROEEDR NP [address], [address], [place], [address], [facility] 3 10:08:56 Pain of right shoulder joint 3517247182086 9100 Active 2022 MARK SCHROEDER NP [address], [place], [address], [facility] 3 12:54:04 Cobalamin deficiency 005132303 Active 2022 Estefanía Witt MD [address], [address], [place], [address], [facility] 3 13:34:49 Sepsis caused by Escherichia coli 522302822 Active 2022 MARK SCHROEDER NP [address], [address], [place], [address], [facility] 3 11:28:51 Dementia 18527806 Active 2022 Estefanía Witt MD [address], [address], [place], [address], [facility] 3 15:58:50 Urinary tract infectious disease 34263995 Active 2023 RASHAWN WAGGONER [address], [address], [place], [address], [facility] 4 20:24:56 Traumatic hematuria 44001628 Active 2023 RASHAWN WAGGONER [address], [place], [address], [facility] 4 20:56:51 Essential hypertensio n 76976358 Active 2023 RASHAWN WAGGONER [address], [place], [address], [facility] 4 21:01:00 Nutritional disorder 0281986 Active 2023 RASAHWN WAGGONER [address], [place], [address], [facility] 4 21:02:35 Adult failure to thrive syndrome 291539592 Active 2023 Estefanía Witt MD [address], [address], [place], [address], [facility] 4 21:38:36 Bradycardia 37365217 Active 2023 RASHAWN WAGGONER [address], [place], [address], [facility] 4 14:06:56 Acute kidney injury 10278250 Active 2023 RASHAWN WAGGONER [address], [place], [address], [facility] 4 14:06:59 Aspiration pneumonia 662736601 Active 2023 RASHAWN WAGGONER [address], [place], [address], [facility] 4 14:07:05 Gastrointes tinal hemorrhage 14007667 Active 2023 RASHAWN WAGGONER [address], [place], [address], [facility] 4 14:07:15 Ulcerative esophagitis 289885012 Active 2023 RASHAWN WAGGONER [address], [place], [address], [facility] 4 15:56:54 Uamir hematuria 209315756 Active 2023 RASHAWN WAGGONER [address], [address], [place], [address], [facility] 4 15:56:56 Recurrent urinary tract infection 799932751 Active 2024 Rajesh Son MD [address], [place], [address], [facility] 11:53:04 Problem Notes None recorded. Medical [...] 95 % 114/72 mm[Hg] RASHAWN WAGGONER [address], [address], [place], [address], [facility] 08:46:05 Date Recorded Body height Systolic And Diastolic Provider Name and Address Organization Details Last Updated DateTime 10/04/2024 157.48 cm 113/69 mm[Hg] Rajesh Son MD [address], [address], [place], [address], [facility] 10/04/2024 11:49:04 Date Recorded Body height Provider Name an d Address Organization Details Last Updated DateTime 01/10/2025 157.48 cm RASHAWN WAGGONER [address], [address], [place], [address], [facility] 01/11/2025 18:28:14 Date Recorded Body height Body mass index (BMI) Body weight Heart rate Respiratory rate Body temperature Oxygen saturation Oxygen saturation in Arterial blood by Pulse oximetry Systolic And Diastolic Provider Name and Address Organization Details Last Updated DateTime 157.48 cm 16.4 kg/m2 79263.5 9 g 65 /min 18 /min 97.5 [degF] 96 % 96 % 125/69 mm[Hg] Estefanía Witt MD [address], [address], [place], [address], [facility] 18:45:34 Date Recorded Body height Provider Name an d Address Organization Details Last Updated DateTime 06/26/2024 157.48 cm RASHAWN WAGGONER [address], [address], [place], [address], [facility] 06/26/2024 13:14:24 Social History Question Answer Notes LastModified by Organizat ion Details LastModified Time Tobacco Smoking Status Never Smoker Estefanía Witt MD [address], [address], [place], [address], [facility] 01/20/2022 16:47:58 Do You Have An Advance Directive? No Assumed Full Code Information not available 01/16/2022 What Is Your Code Status? Full Code Information not available 01/16/2022 Where Do You Live? [facility] Information not available 06/11/2023 Legal Guardian? Yes Informati on not available 01/20/2022 Do You Have A Medical Power Of Scroll Saw Operator? Yes Guardian, Alecia Isabel Information not [...] mcg/0.3 mL dose 05/14/2021 completed Soumya yañez [facility] 04/17/2022 15:49:57 COVID-19, mRNA, LNP-S, PF, 30 mcg/0.3 mL dose 11/21/2020 [facility] 15:50:05 COVID-19, mRNA, LNP-S, PF, 30 mcg/0.3 mL dose 11/04/2021 completed Soumya yañez [facility] 04/17/2022 15:50:17 COVID-19, mRNA, LNP-S, PF, 30 mcg/0.3 mL dose 04/16/2022 completed Soumya yañez [facility] 04/17/2022 15:50:25 Influenza, adjuvanted, quadrivalent, PF 05/18/2022 completed Netta yañez [facility] 07/22/2023 10:59:51 Influenza, adjuvanted, quadrivalent, PF 02/10/2023 completed Netta yañez [facility] 07/22/2023 11:00:07 Past Encounters Encounter ID Performer Location Encounter Start Date Encounter Closed Date Diagnosis/Indication Diagnosis SNOMED-CT Code Diagnosis ICD10 Code Diagnosis IMO Codes Diagnosis Note [id number] AUDI CAPONE APRIL [address] [place] [address] 01/16/2022 09:17:04 01/20/2022 14:19:48 Vascular dementia 019140314 F01.50 remeron 15 mg hspsych prnchart and monitor any changes in mood or behaviors Atrial fibrillation 4943 6004 I48.91 cardizem 120 mg dailyeliqu is 5 mg bidmonitor heart rate Benign pro static hyperplasia 435550356 N40.1 ornelas cathflomax 0.8 mg dailyfinas teride 5 mg daily Gastroesop hageal reflux disease without esophagitis 400155442 K21.9 pepcid 20 mg daily Constipation 66089430 K5 9.00 senna plus 2 tabs bid [place] 529269271 R29.6 PT OT eval and treatfall precaution sfrequent safety checks [id number] AUDI CAPONE [address] [place] [address] 01/19/2022 14:12:01 01/23/2022 17:01:11 Acute urinary tract infection 371078536 N39.0 cephalexin 500 mg qid x10 daysmonito r for symptoms Benign pro static hyperplasia 308025639 N40.1 ornelas cathflomax 0.8 mg dailyfinas teride 5 mg daily [id number] MD STANISLAV Munoz APRIL [address] [place] [address] [place] [address] 01/20/2022 11:55:23 01/28/2022 16:12:54 Acute urinary tract infection 159018855 N30.01 U/A reportedly + in ED (report not available. Continue cephalexin 500 mg QID x10 days (pending cx)Will get copies of U/A and cx from [facility] [place] [place].Monito r for sxs. Benign pro static hyperplasia 833041868 N40.1 Continue ornelas cathContin ue tamsulosin 0.8 mg qd and finasterid e 5 mg qd.Getting f/u appt with uro. Vascular dementia 732593 004 F01.50 Suspect some element of EtOHic [...] risk. Gastroesop hageal reflux disease without esophagitis 495574765 K21.9 No current sxs.Contin ue famotidine 20 mg qd. Constipation 18467223 K5 9.09 Continue senna plus 2 tabs BID.Monito r bowel function. Falls 300419222 R29.6 As above. Umair hematuria 01093055 5 R31.0 Unclear if from UTI vs. traumatic, vs combinatio n of the 2.Clear now.Monito r Asthenia 25791252 R53.1 Very deconditio jen.Needs PT/OT for strengthen ing, balance, gait training, safety and function.C ontinue fall precaution s.Monitor for safety. [id number] MARK GRIPPIN, REAL ESTATE ACQUISITION ANALYST [address] [address] 01/22/2022 12:51:54 01/28/2022 19:53:28 Acute urinary tract infection 149144781 N30.01 recoveredc ephalexin 500 mg qid x10 daysmonito r for symptoms Benign pro static hyperplasia 619132078 N40.1 ornelas cathflomax 0.8 mg dailyfinas teride 5 mg daily Asthenia 67037503 R53.1 PT OT eval and treatfall precaution sfrequent safety checks [id number] MARK SCHROEDER NP [address] [address] 01/26/2022 13:15:39 01/29/2022 09:29:27 Acute urinary tract infection 526390686 N30.01 macobid 100mg bid to 01/29monito r for symptoms Benign pro static hyperplasia 854551479 N40.1 ornelas cathflomax 0.8 mg dailyfinas teride 5 mg dailyurolo gy consult [id number] MARK SCHROEDER NP [address] [address] 01/30/2022 12:08:30 02/13/2022 16:22:20 Acute urinary tract infection 954779067 N30.01 macobid 100mg bid to 01/29monito r for symptoms Benign pro static hyperplasia 549016385 N40.1 ornelas cathflomax 0.8 mg dailyfinas teride 5 mg dailyurolo gy consult Vascular dementia 980609 004 F01.50 remeron 15 mg hspsych prnchart and monitor any changes in mood or behaviors [id number] MARK SCHROEDER NP [address] [address] 02/04/2022 12:45:15 02/16/2022 20:39:21 Benign prostatic hyperplasia 715615240 N40.1 ornelas cathflomax 0.8 mg dailyfinas teride 5 mg dailyurolo gy consult Vascular dementia 705783 004 F01.50 remeron 15 mg hspsych prnchart and monitor any changes in mood or behaviors [id number] MARK SCHROEDER NP [address] [address] 02/11/2022 12:58:05 02/17/2022 16:07:34 Benign prostatic hyperplasia 392480225 N40.1 ornelas cathflomax 0.8 mg dailyfinas teride 5 mg dailyurolo gy consult Vascular dementia 003399 004 F01.50 remeron 15 mg hspsych prnchart and monitor any changes in mood or behaviors Atrial fibrillation 4943 6004 I48.91 cardizem 120 mg dailyeliqu is 5 mg bidmonitor heart rate Gastroesop hageal reflux disease without esophagitis 649163465 K21.9 pepcid 20 mg daily Constipation 13779638 K5 9.00 senna plus 2 tabs bid [place] 410120368 R29.6 PT OT eval and treatfall precaution sfrequent safety checks [id number] AUDI CAPONE [address] [place] [address] 02/18/2022 11:43:57 02/26/2022 11:37:51 Benign prostatic hyperplasia 206227748 N40.1 ornelas cath-will be chronic due to failed voiding trialfloma x 0.8 mg dailyfinas teride 5 mg dailyurolo gy consult Vascular dementia 228917 004 F01.50 remeron 15 mg hspsych prnchart and monitor any changes in mood or behaviors Asthenia 09856763 R53.1 PT OT eval and treatfall precaution sfrequent safety checks [id number] MARK SCHROEDER NP [address] [address] 02/26/2022 12:48:09 03/04/2022 15:36:11 Vascular dementia 226624742 F01.50 remeron 15 mg hspsych prnchart and monitor any changes in mood or behaviors Benign pro static hyperplasia 458614729 N40.1 ornelas cath-will be chronic due to failed voiding trialfloma x 0.8 mg dailyfinas teride 5 mg dailyurolo gy consult [id number] Patsy Waite MD [address] [address] 03/13/2022 08:12:36 03/17/2022 14:45:27 Asthenia 44609161 R53.1 PT/OT/SIZING END BANDER prnwill monitor and support as needed Vascular dementia 745674 004 F01.50 expect declinewil l monitor and support as needed Gastroesop hageal reflux disease without esophagitis 323465876 K21.9 famotidine 20 mg bidwill monitor Benign pro static hyperplasia 140564966 N40.1 Ornelas catheterfu urologyfin asteride 5 mg dailytamsu losin 0.8 mg dailywill monitor Atrial fibrillation 4943 6004 I48.0 apixaban 5 mg biddiltiaz em ER 120 mg daily for rate controlwil l monitor Mixed anxi ety and depressive disorder 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 F41.8 mirtazapin e 15 mg dailywill monitor Cobalamin deficiency 190 512775 E53.8 B12 1000 mcg dailywill monitor [id number] MARK SCHROEDER NP [address] [address] 04/03/2022 11:19:01 04/07/2022 14:04:53 Asthenia 46969382 R53.1 PT/OT/SIZING END BANDER prnwill monitor and support as needed Vascular dementia 731364 004 F01.50 expect declinewil l monitor and support as neededguar kev in place Gastroesop hageal reflux disease without esophagitis 225282629 K21.9 famotidine 20 mg bidwill monitor Benign pro static hyperplasia 544076942 N40.1 Ornelas catheterf/ u urologyfin asteride 5 mg dailytamsu losin 0.8 mg dailywill monitor Atrial fibrillation 4943 6004 I48.0 apixaban 5 mg biddiltiaz em ER 120 mg daily for rate controlwil l monitor Mixed anxi ety and depressive disorder 357145228 F41.8 mirtazapin e 15 mg dailywill monitor Cobalamin deficiency 190 075737 E53.8 B12 1000 mcg dailywill monitor [id number] MARK SCHROEDER NP [address] [address] 04/17/2022 10:06:54 04/21/2022 15:17:37 Fever 910012981 R50.9 ua, covid swab negative, cbc, cmp, blood culturemon itor for response to tylenol [id number] Patsy Waite MD [address] [address] 06/12/2022 06:14:20 06/16/2022 15:35:15 Vascular dementia 201184673 F01.50 expect declinewil l monitor and support as needed Benign pro static hyperplasia 559401446 N40.1 Ornelas catheterfu urologyfin asteride 5 mg dailytamsu losin 0.8 mg dailywill monitor Atrial fibrillation 4943 6004 I48.0 apixaban 2.5 mg biddiltiaz em ER 120 mg daily for rate controlwil l monitor Cobalamin deficiency 190 157231 E53.8 B12 1000 mcg dailywill monitor Mixed anxi ety and depressive disorder 968934066 F41.8 mirtazapin e 15 mg dailywill monitor [id number] MARK SCHROEDER NP [address] [address] 06/29/2022 10:38:59 07/10/2022 13:14:29 COVID-19 552608121 U07.1 06/26 covid positiveen courage po intakecons ider ivf for anorexiaco nsider paxlovid or decadron for symptomsse nd to ED for decompensa tion [id number] MARK SCHROEDER NP [address] [address] 07/01/2022 11:29:19 07/10/2022 13:46:41 COVID-19 865885004 U07.1 06/26 covid positiveen courage po intakecons ider ivf for anorexiaco nsider paxlovid or decadron for symptomsse nd to ED for decompensa tion [id number] MARK SCHROEDER NP [address] [address] 07/02/2022 12:52:16 07/10/2022 14:18:58 COVID-19 283496709 U07.1 06/26 covid positiveen courage po intakecons ider ivf for anorexiaco nsider paxlovid or decadron for symptomsse nd to ED for decompensa tion [id number] MARK SCHROEDER NP [address] [address] 07/03/2022 11:19:45 07/10/2022 14:49:59 COVID-19 399074954 U07.1 06/26 covid positiveen courage po intakecons ider ivf for anorexiaco nsider paxlovid or decadron for symptomsse nd to ED for decompensa tion [id number] MARK SCHROEDER NP [address] [address] 07/06/2022 13:44:51 07/10/2022 15:22:57 COVID-19 209275666 U07.1 06/26 covid positive-a symptomati c, recovered by dateencour age po intakecons ider ivf for anorexiaco nsider paxlovid or decadron for symptomsse nd to ED for decompensa tion MARK SCHROEDER NP [address] [address] 08/03/2022 12:47:40 08/05/2022 13:54:59 Acute urinary tract infection 346087107 N30.01 cefuroxime 250 mg bid x7 days 2/8monitor for symptoms MARK SCHROEDER NP [address] [address] 08/13/2022 08:31:00 08/17/2022 14:54:18 Bacteremia 0962996 R78.81 vanco 1250 mg iv daily to 3/1monitor for symptoms Vascular dementia 847286 004 F01.50 expect declinewil l monitor and support as needed Benign pro static hyperplasia 921879419 N40.1 Ornelas catheterf/ u urologyfin asteride 5 mg dailytamsu losin 0.8 mg dailywill monitor Atrial fibrillation 4943 6004 I48.0 apixaban 2.5 mg biddiltiaz em ER 120 mg daily for rate controlwil l monitor Cobalamin deficiency 190 380394 E53.8 B12 1000 mcg dailywill monitor Mixed anxi ety and depressive disorder 885114904 F41.8 mirtazapin e 15 mg dailywill monitor Gastroesop hageal reflux disease without esophagitis 593513509 K21.9 famotidine 20 mg bidwill monitor Falls 980260910 R29.6 PT OT eval and treatfall precaution sfrequent safety checks [id number] MARK SCHROEDER NP [address] [address] 08/17/2022 15:26:00 08/19/2022 10:15:46 Bacteremia 0374887 R78.81 vanco 1250 mg iv daily to 3/1monitor for symptoms Acute urin maciej tract infection 263468854 N30.01 good ornelas caremonito r for symptoms [id number] MARK SCHROEDER NP [address] [address] 08/19/2022 10:54:09 08/25/2022 10:12:15 Bacteremia 0415675 R78.81 vanco 1250 mg iv daily to 3/1monitor for symptoms Vascular dementia 255840 004 F01.50 expect declinewil l monitor and support as needed Benign pro static hyperplasia 746121906 N40.1 Ornelas catheterf/ u urologyfin asteride 5 mg dailytamsu losin 0.8 mg dailywill monitor Atrial fibrillation 4943 6004 I48.0 apixaban 2.5 mg biddiltiaz em ER 120 mg daily for rate controlwil l monitor Cobalamin deficiency 190 494790 E53.8 B12 1000 mcg dailywill monitor Mixed anxi ety and depressive disorder 021539648 F41.8 mirtazapin e 15 mg dailywill monitor Gastroesop hageal reflux disease without esophagitis 119047244 K21.9 famotidine 20 mg bidwill monitor Falls 720134790 R29.6 PT OT eval and treatfall precaution sfrequent safety checks [id number] MARK SCHROEDER NP [address] [address] 08/27/2022 11:24:35 09/01/2022 07:22:03 Bacteremia 5107290 R78.81 vanco 1250 mg iv daily to 3/1monitor for symptoms Benign pro static hyperplasia 578929671 N40.1 Ornelas catheterf/ u urologyfin asteride 5 mg dailytamsu losin 0.8 mg dailywill monitor [id number] MARK SCHROEDER NP [address] [place] [address] 09/01/2022 12:54:58 09/03/2022 12:37:02 Bacteremia 7361365 R78.81 vanco 1250 mg iv daily to 3/1monitor for symptoms Benign pro static hyperplasia 474957818 N40.1 Ornelas catheterf/ u urologyfin asteride 5 mg dailytamsu losin 0.8 mg dailywill monitor [id number] MARK SCHROEDER NP [address] [address] 09/10/2022 12:26:40 09/16/2022 14:16:46 Pain of right shoulder joint 6675000077 9786963 M25.511 xrays showed rotator cuff injury/tea rortho consult Patsy Waite MD [address] [address] 10/14/2022 06:36:11 10/20/2022 11:20:30 Vascular dementia 998706403 F01.50 expect declinewil l monitor and support as needed Atrial fibrillation 4943 6004 I48.0 apixaban 2.5 mg biddiltiaz em ER 120 mg daily for rate controlwil l monitor Pain of ri ght shoulder joint 6966326977 8440397 M25.511 diclofenac gel bidAPAP 650 mg q6h prnPT/OT prnawait ortho consultati onwill monitor Benign pro static hyperplasia 342422087 N40.1 Ornelas catheterfu urologyfin asteride 5 mg dailytamsu losin 0.8 mg dailywill monitor Gastroesop hageal reflux disease without esophagitis 377080898 K21.9 famotidine 20 mg bidwill monitor Cobalamin deficiency 190 814249 E53.8 B12 1000 mcg dailywill monitor Mixed anxi ety and depressive disorder 773583338 F41.8 mirtazapin e 15 mg dailywill monitor [id number] MARK SCHROEDER NP [facility] [address] [place] [address] 12/04/2022 11:16:37 12/10/2022 12:55:03 Vascular dementia 011693018 F01.50 expect declinewil l monitor and support as needed Atrial fibrillation 4943 6004 I48.0 apixaban 2.5 mg biddiltiaz em ER 120 mg daily for rate controlwil l monitor Pain of ri ght shoulder joint 7450870240 2718630 M25.511 diclofenac gel bidAPAP 650 mg q6h prnPT/OT prnawait ortho consultati onwill monitor Benign pro static hyperplasia 649008602 N40.1 Ornelas catheterf/ u urologyfin asteride 5 mg dailytamsu losin 0.8 mg dailywill monitor Gastroesop hageal reflux disease without esophagitis 672027442 K21.9 famotidine 20 mg bidwill monitor Cobalamin deficiency 190 041731 E53.8 B12 1000 mcg dailywill monitor Mixed anxi ety and depressive disorder 096887337 F41.8 mirtazapin e 15 mg dailywill monitor [id number] AUDI CAPONE [address] [address] 01/27/2023 14:41:48 01/29/2023 16:16:55 Vascular dementia 193663610 F01.50 expect declinewil l monitor and support as needed Atrial fibrillation 4943 6004 I48.0 apixaban 2.5 mg biddiltiaz em ER 120 mg daily for rate controlwil l monitor Pain of ri ght shoulder joint 5827908172 4676193 M25.511 diclofenac gel bidAPAP 650 mg q6h prnPT/OT prnawait ortho consultati onwill monitor Benign pro static hyperplasia 499156478 N40.1 Ornelas catheterf/ u urologyfin asteride 5 mg dailytamsu losin 0.8 mg dailywill monitor Gastroesop hageal reflux disease without esophagitis 554465434 K21.9 famotidine 20 mg bidwill monitor Cobalamin deficiency 190 303627 E53.8 B12 1000 mcg dailywill monitor Mixed anxi ety and depressive disorder 024737854 F41.8 mirtazapin e 15 mg dailywill monitor Asthenia 04420304 R53.1 PT/OT/SIZING END BANDER prnwill monitor and support as needed Falls 524339400 R29.6 PT OT eval and treatfall precaution sfrequent safety checks [id number] MD STANISLAV Munoz [address] [place], [place] [address], [place] [address] 02/22/2023 12:39:11 02/24/2023 13:44:41 Sepsis caused by Escherichia coli 838163279 A41.51 To complete course of abx with cefuroxime 500 mg BID until 03/05 (14 day course).Wi ll add probiotic BID for 14 more days.Monit or sxs. Acute urin maciej tract infection 504665946 N30.01 As above. Chronic re tention of urine 515554665 R33.8 Continue chronic ornelas, change every 30 days.F/U with uro prn. Benign pro static hyperplasia with outflow obstruction 262953555 N40.1 As above.Cont inue tamsulosin 0.8 mg qd and finasterid e 5 mg qd.F/U with uro Atrial fibrillation 4943 6004 I48.0 Rate in good control on diltiazem ER 120 mg qdContinue eliquis 2.5 mg BID for AC.Monitor HR and bleeding risk. Pain of ri ght shoulder joint 9377238832 2167371 M25.511 Continue APAP 650 mg q 6 hr prnWill use OT as ableAwaiti ng ortho consultati onMonitor Gastroesop hageal reflux disease without esophagitis 695071998 K21.9 No current sxs.Contin ue famotidine 20 mg BIDMonitor sxs Cobalamin deficiency 190 806902 E53.8 Continue vitamin B12 1000 mcg qdNo recent level, will check with tomorrow's labs, then yearly Mixed anxi ety and depressive disorder 003033287 F41.8 As above. Asthenia 42233409 R53.1 Is deconditio jen from recent illness.Ne eds PT/OT for strengthen ing, balance, gait training, safety and function.C ontinue fall precaution s.Monitor for safety. Dementia 60647762 F02.B3 Likely multifacto rial with vascular and EtOH components .Continues at baselineCo ntinue mirtazapin e 15 mg qdContinue supportive care, expect decline.Vega s guardianMo nitor mood and behaviors. Psych follows. [id number] AUDI CAPONE APRIL [address] [facility] [place] [address] 03/03/2023 11:23:38 03/05/2023 15:37:10 Sepsis caused by Escherichia coli 483471197 A41.51 To complete course of abx with cefuroxime 500 mg BID until 03/05 (14 day course). Will add probiotic BID for 14 more days. Monitor sxs. Acute urin maciej tract infection 522731474 N30.01 cefuroxime 500 mg bid to 9ood ornelas caremonito r for symptoms [id number] MARK SCHROEDER NP [address] [address] 04/14/2023 11:08:09 04/16/2023 08:47:29 Vascular dementia 661085957 F01.50 expect declinewil l monitor and support as needed Atrial fibrillation 4943 6004 I48.0 apixaban 2.5 mg biddiltiaz em ER 120 mg daily for rate controlwil l monitor Pain of ri ght shoulder joint [id number] 0512348 M25.511 diclofenac gel bidAPAP 650 mg q6h prnPT/OT prnawait ortho consultati onwill monitor Benign pro static hyperplasia 804955309 N40.1 Ornelas catheterf/ u urologyfin asteride 5 mg dailytamsu losin 0.8 mg dailywill monitor Gastroesop hageal reflux disease without esophagitis 850334262 K21.9 famotidine 20 mg bidwill monitor Cobalamin deficiency 190 094013 E53.8 B12 1000 mcg dailywill monitor Mixed anxi ety and depressive disorder 294406513 F41.8 mirtazapin e 15 mg dailywill monitor Asthenia 66554266 R53.1 PT/OT/SIZING END BANDER prnwill monitor and support as needed [place] [id number] R29.6 PT OT eval and treatfall precaution sfrequent safety checks [id number] MD STANISLAV Munoz APRIL [address] [place] [phone] 06/11/2023 15:07:43 06/15/2023 19:26:06 Chronic retention of urine 025566169 R33.8 No recent issuesCont inue chronic ornelas, change every 30 days.F/U with uro prn. Benign pro static hyperplasia with outflow obstruction 729373193 N40.1 As above.Cont inue tamsulosin 0.8 mg qd and finasterid e 5 mg qd.F/U with uro Dementia 94475193 F02.B3 Continues at baselineCo ntinue mirtazapin e 15 mg qdContinue supportive care, expect decline.Vega s guardian, needs updated guardiansh ip papers scanned into [facility].Monito r mood and behaviors. Psych follows. Mixed anxi ety and depressive disorder 098114851 F41.8 As above. Atrial fibrillation 4943 6004 I48.0 Rate remains in good control on diltiazem ER 120 mg qdContinue eliquis 2.5 mg BID for AC.Monitor HR and bleeding risk. Gastroesop hageal reflux disease without esophagitis 661651198 K21.9 No current sxs.Contin ue famotidine 20 mg BIDMonitor sxs [id number] AUDI CAPONE [address] [address] 06/16/2023 14:19:39 06/23/2023 18:09:18 Acute urinary tract infection 203009370 N30.01 levofloxin 750 mg qod x6 dosesgood ornelas caremonito r for symptoms Vascular dementia 928039 004 F01.50 expect declinewil l monitor and support as needed Atrial fibrillation 4943 6004 I48.0 apixaban 2.5 mg biddiltiaz em ER 120 mg daily for rate controlwil l monitor Pain of ri ght shoulder joint [id number] 5925094 M25.511 diclofenac gel bidAPAP 650 mg q6h prnPT/OT prnawait ortho consultati onwill monitor Benign pro static hyperplasia 630433602 N40.1 Ornelas catheterf/ u urologyfin asteride 5 mg dailytamsu losin 0.8 mg dailywill monitor Gastroesop hageal reflux disease without esophagitis 570178414 K21.9 famotidine 20 mg bidwill monitor Cobalamin deficiency 190 811538 E53.8 B12 1000 mcg dailywill monitor 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 mirtazapin e 15 mg dailywill monitor Asthenia 86261334 R53.1 PT/OT/SIZING END BANDER prnwill monitor and support as needed [place] 144430705 R29.6 PT OT eval and treatfall precaution sfrequent safety checks [id number] MARK GARAYAUDI EATON [address] [address] 06/21/2023 13:07:48 06/23/2023 18:53:43 Acute urinary tract infection 163161269 N30.01 levofloxin 750 mg qod x6 dosesgood ornelas caremonito r for symptoms Vascular dementia 396352 004 F01.50 expect declinewil l monitor and support as needed [place] 641252170 R29.6 PT OT eval and treatfall precaution sfrequent safety checks [id number] MARK AUDI SCHROEDER [address] [address] 06/30/2023 10:16:19 07/13/2023 09:45:01 Acute urinary tract infection 066312078 N30.01 levofloxin 750 mg qod x6 doses-comp letedgood ornelas caremonito r for symptoms Benign pro static hyperplasia 754066176 N40.1 Ornelas catheterf/ u urologyfin asteride 5 mg dailytamsu losin 0.8 mg dailywill monitor [id number] Gail MedinaAlysa Pennington [address] [address] 08/20/2023 10:35:03 08/31/2023 10:01:42 Benign prostatic hyperplasia 368847882 N40.1 continue with chronic ornelas, change monthly and prncontinu e finasterid e 5mg dailyfollo wed by urology Acute urin maciej tract infection 995238113 N30.01 last UTI in hospital 06/13/23 tx with levoquinco ntinue vit c 500mg BID UTI procontinu e D-mannose 1g BID UTI promonitor , change ornelas monthly Atrial fibrillation 4943 6004 I48.0 chronic, stable. RCcontinue diltiazem 120mg dailyeliqu is 2.5mg BID Cobalamin deficiency 190 770305 E53.8 chronic stablecont inue supplement [id number] NADIRA BROOKS, RASHAWN [address] [address] 09/13/2023 11:11:07 09/15/2023 09:51:03 Herpes zoster 0811786 B02.9 valacyclov ir 1000 mg q12 for 5 daysgabape ntin 300 mg q 6 prn for 5 daysbenadr yl 25 mg q6 hours for pruritis prntylenol 650 mg prn for discomfort .monitor for worsening sx , nursing to update provider with changesmon itor VS qshiftplac e on precaution s per facility protocol.p t to wear loose clothing [id number] RASHAWN WAGGONER [address] [address] 09/27/2023 12:16:45 09/30/2023 12:31:03 Acute urinary tract infection 922518505 N30.01 with acute encephalop athytx with IV linezolid d/t renal function and ceftriaxon edischarge d to facility on Cefuroxime 500 MG BID until inezol id 600 MG BID until 10/03 Traumatic hematuria 9556 7008 R31.9 tx with CBI; now resolved Herpes zoster 4532119 B0 2.9 dx with shinglesva lacyclovir 1000 mg q12 for 5 daysgabape ntin 300 mg q 6 prn for 5 daysbenadr yl 25 mg q6 hours for pruritis prntylenol 650 mg prn for discomfort .monitor for worsening sx , nursing to update provider with changesmon itor VS qshiftplac e on precaution s per facility protocol. Essential hypertension 92121221 I10 diltiazem 120 mg dailymonit or BP Benign pro static hyperplasia 738701549 N40.1 chronic ornelas catheterco ntinue finasterid e and flomax Atrial fibrillation 4943 6004 I48.0 continue eliquiscon tinue cardizemmo nitor HR Nutritional disorder 249 2008 E44.0 underweigh t 15.7nutrit ional supplement s TID with mealsmonit or monthly weights Acute kidney injury 1466 9001 N17.9 resolved [id number] RASHAWN WAGGONER [address] [address] 09/30/2023 09:22:37 10/05/2023 11:35:15 Acute urinary tract infection 368258886 N30.01 with acute encephalop athytx with IV linezolid d/t renal function and ceftriaxon edischarge d to facility on Cefuroxime 500 MG BID until inezol id 600 MG BID until 10/03 Herpes zoster 3219756 B0 2.9 dx with shinglesva lacyclovir 1000 mg q12 for 5 days-compl etedgabape ntin 300 mg q 6 prn for 5 days -completed benadryl 25 mg q6 hours for pruritis prntylenol 650 mg prn for discomfort .monitor for worsening sx , nursing to update provider with changesmon itor VS qshiftplac e on precaution s per facility protocol. Essential hypertension 83550732 I10 diltiazem 120 mg dailymonit or BP Benign pro static hyperplasia 163366545 N40.1 chronic ornelas catheterco ntinue finasterid e and flomax Atrial fibrillation 4943 6004 I48.0 continue eliquiscon tinue cardizemmo nitor HR Nutritional disorder 249 2008 E44.0 underweigh t 15.7nutrit ional supplement s TID with mealsmonit or monthly weights [id number] RASHAWN WAGGONER [address] [address] 10/07/2023 10:51:23 10/11/2023 14:34:12 Acute urinary tract infection 061281916 N30.01 abx completed 10/04/23 Herpes zoster 2909467 B0 2.9 dx with shinglesan tiviral completed. Essential hypertension 98911638 I10 diltiazem 120 mg dailymonit or BP Benign pro static hyperplasia 463823201 N40.1 chronic ornelas catheterco ntinue finasterid e and flomax Atrial fibrillation 4943 6004 I48.0 continue eliquiscon tinue cardizemmo nitor HR Nutritional disorder 249 2008 E44.0 will order weight time 3 days at 6am for accuracy.u nderweight 15.7nutrit ional supplement s TID with mealsmonit or monthly weights [id number] RASHAWN WAGGONER [address] [address] 10/12/2023 08:24:59 10/25/2023 13:43:58 Acute urinary tract infection 128769725 N30.01 abx completed 10/04/23 Herpes zoster 9876431 B0 2.9 rash resolving, no open areasblist er healed, skin redness continues. antiviral completed. Essential hypertension 71417844 I10 diltiazem 120 mg dailymonit or BP Benign pro static hyperplasia 164664447 N40.1 chronic orenlas catheterco ntinue finasterid e and flomax Nutritional disorder 249 2008 E44.0 appetite wax and wanesnoted with> than 10 lbs weight lossnursin g to encourage supplement al shakes .underweig ht 15.7nutrit ional supplement s TID with mealsmonit or monthly weights [id number] RASHAWN WAGGONER [address] [address] 10/19/2023 10:54:51 10/26/2023 11:03:11 Acute urinary tract infection 212234967 N30.01 resolved Herpes zoster 1399628 B0 2.9 resolved Essential hypertension 18930482 I10 diltiazem 120 mg dailymonit or BP Benign pro static hyperplasia 721023454 N40.1 chronic ornelas catheterco ntinue finasterid e and flomax Nutritional disorder 249 2009 E44.0 appetite wax and wanesbette r today, noted eating breakfast. noted with> than 10 lbs weight lossnursin g to encourage supplement al shakes .underweig ht 15.7nutrit ional supplement s TID with mealsmonit or monthly weights [id number] Estefanía Witt MD [address] [phone] 10/22/2023 18:41:41 12/13/2023 13:58:00 Adult failure to thrive syndrome 215412303 R62.7 With marked wt. loss.Will add ensure/reyna st 8 oz BID and get digital media associate consult.Al ready on mirtazapin e 15 mg qd.Monitor wts Dementia 51450383 F02.B3 Continues at baselineCo ntinue mirtazapin e 15 mg qdContinue supportive care, expect decline.Gary mcqueen guardian.M onitor mood and behaviors. Psych follows. Chronic re tention of urine 850300195 R33.8 No recent issuesCont inue chronic ornelas, change every 30 days.F/U with uro prn. Benign pro static hyperplasia with outflow obstruction 198832141 N40.1 As above.Cont inue tamsulosin 0.8 mg qd and finasterid e 5 mg qd.F/U with uro Mixed anxi ety and depressive disorder 910732145 F41.8 As above. Atrial fibrillation 4943 6004 I48.0 Rate remains in good control on diltiazem ER 120 mg qdContinue eliquis 2.5 mg BID for AC.Monitor HR and bleeding risk. Gastroesop hageal reflux disease without esophagitis 343359264 K21.9 No current sxs.Contin ue famotidine 20 mg BIDMonitor sxs [id number] RASHANW WAGGONER [facility] [address] [place] [phone] 10/27/2023 09:18:00 11/02/2023 14:04:27 Essential hypertension 14377134 I10 diltiazem 120 mg dailymonit or BP Benign pro static hyperplasia 553722606 N40.1 chronic ornelas catheterco ntinue finasterid e and flomax Nutritional disorder 249 2008 E44.0 appetite wax and wanesnoted with> than 10 lbs weight lossnursin g to encourage supplement al shakes .underweig ht 15.7nutrit ional supplement s TID with mealsmonit or monthly weights Urinary tr act infectious disease 81412749 N39.0 Started on Methenamin e Hippurate 1 GM for preventati ve measures. [id number] RASHAWN WAGGONER [address] [address] 11/04/2023 09:11:34 11/09/2023 10:00:16 Essential hypertension 94480921 I10 diltiazem 120 mg dailymonit or BP Benign pro static hyperplasia 974435248 N40.1 chronic ornelas catheterco ntinue finasterid e and flomax Nutritional disorder 249 2008 E44.0 appetite wax and wanesnoted with> than 10 lbs weight lossnursin g to encourage supplement al shakes .underweig ht 15.7nutrit ional supplement s TID with mealsmonit or monthly weights Urinary tr act infectious disease 50322655 N39.0 Started on Methenamin e Hippurate 1 GM for preventati ve measures. [id number] NADIRA BROOKS, [address] [address] 11/16/2023 08:30:13 11/22/2023 12:12:26 Urinary tract infectious disease 65528587 N39.0 Sepsis secondary to UTI due to chronic indwelling FoleyConti nue oral amoxicilli n and oral fluconazol e (end date both 11/21) for total of 14 day courseChan ge foleys every 3-4 weeks and use catheter secure Acute kidney injury 1466 9001 N17.9 DOUGLAS secondary to ATNresolve d. Blood in urine 70125267 R31.9 baseline he will present with hematuria in ornelas catheter.C hronic Ornelas in place.abril tor Atrial fibrillation 4943 6004 I48.0 continue eliquis 2.5 mg dailyconti nue cardizem- d/c in acute care due to bradycardi a, monitor need to restart.mo nitor HR Dementia 07760465 F02.B3 Continue mirtazapin e 15 mg qd Gastroesop hageal reflux disease without esophagitis 346954767 K21.9 Continue famotidine 20 mg BIDMonitor sxs Cobalamin deficiency 190 825070 E53.8 Ascorbic Acid 500 MG dailyCyano cobalamin 1000 mcg daily Benign pro static hyperplasia 046246155 N40.1 chronic ornelas catheterco ntinue finasterid e 5 mg daily [id number] RASHAWN WAGGONER [address] [address] 2023 11:24:22 11/26/2023 08:45:18 Urinary tract infectious disease 39842201 N39.0 antibiotic s completed. Sepsis secondary to [...] monitor need to restart.mo nitor HR Dementia 00543521 F02.B3 Continue mirtazapin e 15 mg qd Gastroesop hageal reflux disease without esophagitis 243633498 K21.9 Continue famotidine 20 mg BIDMonitor sxs [id number] RASHAWN WAGGONER [address] [address] 12/02/2023 09:46:58 12/07/2023 11:56:04 Urinary tract infectious disease 36270600 N39.0 antibiotic s completed. Change ornelas every 3-4 weeks and use catheter secure Atrial fibrillation 4943 6004 I48.0 continue eliquis 2.5 mg dailyconti nue cardizem- d/c in acute care due to bradycardi a, monitor need to restart.mo nitor HR 74 0n 12/01- has been stable 70-80s. Dementia 14790625 F02.B3 Continue mirtazapin e 15 mg qd Gastroesop hageal reflux disease without esophagitis 490630870 K21.9 Continue famotidine 20 mg BIDMonitor sxs [id number] RASHAWN WAGGOENR [address] [address] 12/06/2023 12:48:19 12/07/2023 12:34:24 Atrial fibrillation 55093351 I48.0 continue eliquis 2.5 mg dailyconti nue cardizem- d/c in acute care due to bradycardi a, monitor need to restart.HR stable. denies any chest pain, SOB or palpitatio ns. 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 [id number] RASHAWN WAGGOENR [address] [address] 12/14/2023 10:28:27 12/17/2023 08:36:28 Urinary tract infectious disease 58748451 N39.0 resolved Acute kidney injury 1466 9001 N17.9 DOUGLAS secondary to ATNresolve d. Blood in urine 00917697 R31.9 baseline he will present with hematuria in ornelas catheter.C hronic Ornelas in place.abril tor Atrial fibrillation 4943 6004 I48.0 continue eliquis 2.5 mg daily Dementia 21859767 F02.B3 Continue mirtazapin e 15 mg qd Gastroesop hageal reflux disease without esophagitis 922322142 K21.9 Continue famotidine 20 mg BID Cobalamin deficiency 190 744830 E53.8 Ascorbic Acid 500 MG dailyCyano cobalamin 1000 mcg daily Benign pro static hyperplasia 894670523 N40.1 chronic ornelas catheterco ntinue finasterid e 5 mg daily [id number] RASHAWN WAGGONER [address] [address] 12/28/2023 10:37:21 12/31/2023 14:58:13 Urinary tract infectious disease 85897521 N39.0 Cefuroxime 250 mg BID for 7 dayscontin ue Acidophilu s Oral Capsule daily. Benign pro static hyperplasia 468292720 N40.1 chronic ornelas catheter -patent and draining to gravity today.cont inue finasterid e 5 mg dailynursi ng to provide ornelas care per facility protocol qshift. [id number] RASHAWN WAGGONER [address] [address] 02/08/2024 12:48:44 02/09/2024 14:43:43 Dementia 64519095 F02.B3 noted with an agitation, hitting himself in the head, there is no injury.duncan sing able to redirect patient behavior, although he is redirectab le from self harm he continues to be noted with agitation. nursing reports that patient gets easily agitated with too environmen tabyb stimuli.wi ll add trazodone 25 mg q 8 prn for anxiety for 14 days. [id number] RASHAWN WAGGONER [address] [address] 03/07/2024 11:27:24 03/09/2024 14:27:31 Dementia 93557134 F02.B3 with agitation and anxietyrec ently trial on 14 days trazadone with improvemen t with behaviors per nursing.re cently seen by psych with recommenda tions to schedule daily at hswill add trazadone 25 mg at hs and monitor effectiven ess. [id number] RASHAWN WAGGONER [address] [address] 03/13/2024 10:00:17 03/15/2024 10:09:29 Atrial fibrillation 06984468 I48.0 continue eliquis 2.5 mg daily Dementia 38792922 F02.B3 Continue mirtazapin e 15 mg qdrecently trial on 14 days trazadone with improvemen t with behaviors per nursing.no w on trazadone 25 mg at hs for anxiety with agitation Gastroesop hageal reflux disease without esophagitis 453377965 K21.9 Continue famotidine 20 mg BID Cobalamin deficiency 190 453356 E53.8 Ascorbic Acid 500 MG dailyCyano cobalamin 1000 mcg daily Benign pro static hyperplasia 814337396 N40.1 chronic ornelas catheterco ntinue finasterid e 5 mg daily [id number] RASHAWN WAGGONER [address] [address] 03/27/2024 10:56:25 03/28/2024 13:30:57 Atrial fibrillation 85367724 I48.0 continue eliquis 2.5 mg dailyno abn bleeding or bruisingoc c hematuria that resolves with irrigation . Dementia 28123924 F02.B3 Continue mirtazapin e 15 mg qdrecently trial on 14 days trazadone with improvemen t with behaviors per nursing.cn tinue trazadone 25 mg at hs for anxiety with agitation Gastroesop hageal reflux disease without esophagitis 485227314 K21.9 Continue famotidine 20 mg BIDno reported GI upset Cobalamin deficiency 190 992110 E53.8 Ascorbic Acid 500 MG dailyCyano cobalamin 1000 mcg daily Benign pro static hyperplasia 648946446 N40.1 chronic ornelas catheterco ntinue finasterid e 5 mg dailyPatie nt had planned procedure for plan suprapubic ornelas on 03/21- had to be reschedule d due to transporta tion. Adult fail ure to thrive syndrome 554064859 R62.7 02/25/24 ensures increased from BID to TIDof note patient noted with 6 lb weight gaincontin ue ensure/reyna st 8 oz TIDmirtaza pine 15 mg qd.Monitor wts [id number] RASHAWN WAGGONER [address] [address] 03/30/2024 11:03:41 03/31/2024 12:43:23 Benign prostatic hyperplasia 408342170 N40.1 chronic ornelas catheterco ntinue finasterid e 5 mg dailyPatie nt had planned procedure for plan suprapubic ornelas on 03/21- had to be reschedule d due to transporta tion. Retention of urine due to occlusion of Ornelas catheter 629215303 R33.8 see hpiHX of BPH, no coude catheter available to replaced current ornelas, patient previously sent to ED for ornelas replacemen t due to difficult insertion. will send to ED for evaluation [id number] RASHAWN WAGGONER [address] [address] 04/17/2024 11:47:14 04/18/2024 16:02:01 Benign prostatic hyperplasia 552271351 N40.1 now with suprapubic catheter -continue finasterid e 5 mg daily Dementia 75019229 F02.B3 can be impulsive, easily agitatedex pect declineCon tinue mirtazapin e 15 mg qdcontinue trazadone 25 mg at hs for anxiety with agitation Suprapubic urinary catheter in situ 551167908 Z96.0 monitor for sx of site infection update provider with changes.pa tent and drainingap ply abdominal binder to prevent accidental pulling out.change catheter tubing per urology recs. [id number] RASHAWN WAGGONER [facility] e [address] [place] [address] 04/20/2024 13:55:50 04/21/2024 11:40:27 Benign prostatic hyperplasia 690186471 N40.1 now with suprapubic catheter -continue finasterid e 5 mg daily Dementia 76816678 F02.B3 can be impulsive, easily agitatedex pect declineCon tinue mirtazapin e 15 mg qdcontinue trazadone 25 mg at hs for anxiety with agitation Suprapubic urinary catheter in situ 287704056 Z96.0 pt incidental ly pulled out stitch, there has been no concerns, site is clean and dry no drainagemo nitor for sx of site infection update provider with changes.pa tent and drainingap ply abdominal binder to prevent accidental pulling out.change catheter tubing per urology recs. [id number] RASHAWN WAGGONER [address] [address] 04/24/2024 08:37:53 04/26/2024 09:17:19 Benign prostatic hyperplasia 794013149 N40.1 now with suprapubic catheter -continue finasterid e 5 mg daily Dementia 91193995 F02.B3 stable today, mood pleasant .can be impulsive, easily agitatedex pect declineCon tinue mirtazapin e 15 mg qdcontinue trazadone 25 mg at hs for anxiety with agitation Suprapubic urinary catheter in situ 008801681 Z96.0 pt incidental ly pulled out stitch, there has been no concerns, site is clean and dry no drainagemo nitor for sx of site infection update provider with changes.pa tent and drainingap ply abdominal binder to prevent accidental pulling out.change catheter tubing per urology recs. [id number] RASHAWN WAGGONER [address] [address] 04/27/2024 11:14:21 05/01/2024 15:09:09 Benign prostatic hyperplasia 674142379 N40.1 now with suprapubic catheter -continue finasterid e 5 mg daily Dementia 40612605 F02.B3 stablecan be impulsive, easily agitatedex pect declineCon tinue mirtazapin e 15 mg qdcontinue trazadone 25 mg at hs for anxiety with agitation Suprapubic urinary catheter in situ 632092495 Z96.0 pt incidental ly pulled out stitch, there has been no concerns, site is clean and dry no drainagemo nitor for sx of site infection update provider with changes.pa tent and drainingap ply abdominal binder to prevent accidental pulling out.change catheter tubing per urology recs. Essential hypertension 37888877 I10 stabledilt iazem 120 mg dailymonit or BP [id number] RASHAWN WAGGONER [address] [address] 05/05/2024 12:40:01 05/08/2024 13:34:52 Benign prostatic hyperplasia 032929887 N40.1 now with suprapubic catheter -continue finasterid e 5 mg daily Dementia 95286484 F02.B3 stablecan be impulsive, easily agitatedex pect declineCon tinue mirtazapin e 15 mg qdcontinue trazadone 25 mg at hs for anxiety with agitation Suprapubic urinary catheter in situ 270851003 Z96.0 pt incidental ly pulled out stitch, there has been no concerns, site is clean and dry no drainagemo nitor for sx of site infection update provider with changes.pa tent and drainingap ply abdominal binder to prevent accidental pulling out.change catheter tubing per urology recs. Essential hypertension 77738933 I10 stabledilt iazem 120 mg dailymonit or BP [id number] RASHAWN WAGGONER [address] [address] 05/15/2024 12:19:47 05/31/2024 12:02:09 Benign prostatic hyperplasia 366643060 N40.1 now with suprapubic catheter -continue finasterid e 5 mg daily Dementia 77757948 F02.B3 stablecan be impulsive, easily agitatedex pect declineCon tinue mirtazapin e 15 mg qdcontinue trazadone 25 mg at hs for anxiety with agitation Suprapubic urinary catheter in situ 629899279 Z96.0 monitor for sx of site infection update provider with changes.pa tent and drainingab dominal binder to prevent accidental pulling out.change catheter tubing per urology recs. Essential hypertension 14014222 I10 stabledilt iazem 120 mg dailymonit or BP [id number] RASHAWN WAGGONER [address] [address] 05/29/2024 11:13:49 05/31/2024 12:05:16 Gastrointestinal hemorrhage 84930317 K92.2 see hpicontinu e sucralfate 1g for 14 days after mealsprilo sec 20 mg daily for 8 weeksconti nue pepcid 20 mg BIDavoid NSAIDavoid lying flat for 1 hour after eating- recommend OOB for meals Aspiration pneumonia 422 778877 J69.0 tx with IV zosyn in acute caredischa rge on augmentin BID for 5 daysavoid lying flat for 1 hour after eating- recommend OOB for meals Acute urin maciej tract infection 143795998 N30.01 Enterococc us faecalis.c ontinue Augmentinh igh risk for recurrent due to s/p ornelas Acute kidney injury 1466 9001 N17.9 Likely from renal hypoperfus ion/hypote nsion. noted with metabolic acidosisHX ATNavoid nephrotoxi c meds Bradycardia [id number] R00 .1 see hpimonitor HRavoid beta blockers Umair hematuria [id number] 5 R31.0 noted with about 700 cc of dark red, dark cranberry colored urine can not see through in ornelas catheter tubing and bag.he is on eliquis BIDwill send to ED for evaluation due to significan t amount most likely will need irrigation . [id number] RASHAWN WAGGONER [address] [place] [address] 5 06/05/2024 12:03:56 06/07/2024 11:45:22 Gastrointestinal hemorrhage [id number] K92.2 no reported coffee ground emesis since returningc ontinue sucralfate 1g for 14 days after mealsprilo sec 20 mg daily for 8 weeksconti nue pepcid 20 mg BIDavoid NSAIDavoid lying flat for 1 hour after eating- recommend OOB for meals Aspiration pneumonia [id number] 297945 J69.0 completed abxavoid lying flat for 1 hour after eating- recommend OOB for meals Acute urin maciej tract infection [id number] N30.01 abx completed Umair hematuria [id number] 5 R31.0 12: pink tingeddisc ussed with nursing to monitor outputcan restart eliquis [id number] RASHAWN WAGGONER APRIL [address] [place] [address]155 5 06/08/2024 08:39:45 06/09/2024 12:00:08 Gastrointestinal hemorrhage [id number] K92.2 no reported coffee ground emesis since returningc ontinue sucralfate 1g for 14 days after mealsprilo sec 20 mg daily for 8 weeksavoid NSAIDavoid lying flat for 1 hour after eating- recommend OOB for meals Umair hematuria 34594242 5 R31.0 suprapubic catheter with geovani urine noted todaydiscu ssed with nursing to monitor outputcan restart eliquis 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 Rare yeast and pseudohyph ae are present, consistent with Violette speciesnow on fluconazol e 200 mg qd for 14 dayscontin ue PPI and N5Bgvvr extend carafate 1 gm after meals QD. [id number] RASHAWN WAGGONER [address] [address] 5 06/12/2024 10:18:47 06/13/2024 14:16:39 Gastrointestinal hemorrhage 97887001 K92.2 no reported coffee ground emesis since returningc ontinue sucralfate 1g for 14 days after mealsprilo sec 20 mg daily for 8 weeksavoid NSAIDavoid lying flat for 1 hour after eating- recommend OOB for mealsmonit or weekly labs for now Umair hematuria 88396688 5 R31.0 suprapubic catheter with geovani urine noted todaydiscu ssed with nursing to monitor outputcont inue eliquis Ulcerative esophagitis 566591475 K22.10 esophagus biopsy resulted 06/06 showed Ulcerative esophagiti s. Rare yeast and pseudohyph ae are present, consistent with Violette speciesnow on fluconazol e 200 mg qd for 14 dayscontin ue PPIwill extend carafate 1 gm after meals QD. [id number] RASHAWN WAGGONER [address] [address] 5 06/15/2024 08:20:07 06/16/2024 13:24:29 Gastrointestinal hemorrhage 28195187 K92.2 no reported coffee ground emesis since returningc ontinue sucralfate prilosec 20 mg daily for 8 weeksavoid NSAIDavoid lying flat for 1 hour after eating- recommend OOB for mealsmonit or weekly labs for now Umair hematuria 18384683 5 R31.0 suprapubic catheter with geovani urine noted todaydiscu ssed with nursing to monitor outputcont inue eliquis Ulcerative esophagitis 672529542 K22.10 esophagus biopsy resulted 06/06 showed Ulcerative esophagiti s. Rare yeast and pseudohyph ae are present, consistent with Violette speciesnow on fluconazol e 200 mg qd for 14 days until 06/21conti nue PPIwill extend carafate 1 gm after meals QD. Urethral u rinary catheter in situ for retirement use [id number] 104 Z96.0 prone to frequent UTI; recently completed ABX.Ornelas patent and draining.C hange ornelas every 3-4 weeks and use catheter securenurs ing to do ornelas care twice daily encouraged . [id number] RASHAWN WAGGONER [address] [address] 5 06/19/2024 10:41:37 06/20/2024 12:04:02 Ulcerative esophagitis 521069087 K22.10 esophagus biopsy resulted 06/06 showed Ulcerative esophagiti s. Rare yeast and pseudohyph ae are present, consistent with Violette speciesnow on fluconazol e 200 mg qd for 14 days until 06/21conti nue PPIwill extend carafate 1 gm after meals QD. 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 [id number] RASHAWN WAGGONER [address] [address] 06/26/2024 10:30:09 06/27/2024 09:52:09 Ulcerative esophagitis 275386766 K22.10 esophagus biopsy resulted 06/06 showed Ulcerative esophagiti s. Rare yeast and pseudohyph ae are present, consistent with Violette speciesnow on completed fluconazol e on 07/01will extend carafate 1 gm after meals QD. 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 Atrial fibrillation 4943 6004 I48.0 continue eliquis 2.5 mg daily- monitor for hematuriao cc hematuria that resolves with irrigation . Benign pro static hyperplasia 697760740 N40.1 with suprapubic catheter -continue finasterid e 5 mg daily Dementia 81538329 F02.B3 stable at his baselineca n be impulsive, easily agitatedex pect declineCon tinue mirtazapin e 15 mg qdcontinue trazadone 25 mg at hs for anxiety with agitation Essential hypertension 92595291 I10 stabledilt iazem 120 mg dailymonit or BP [id number] RASHAWN WAGGONER [address] [address] 10/01/2024 10:54:39 10/05/2024 16:06:42 Urethral urinary catheter in situ for retirement use [id number] 104 Z96.0 recurrent UTI Hxwill start on PPX abxmacrobi d [facility] Atrial fibrillation 4943 6004 I48.0 stablerate controlled continue eliquis 2.5 mg daily- Benign pro static hyperplasia 299685226 N40.1 with suprapubic catheter -continue finasterid e 5 mg daily Dementia 57845263 F02.B3 stable at his baselineca n be impulsive, easily agitatedex pect declineCon tinue mirtazapin e 15 mg qdcontinue trazadone 25 mg at hs for anxiety with agitation Essential hypertension 76963764 I10 stabledilt iazem 120 mg dailymonit [place] BP [id number] Rajesh Son MD [address] [address] 10/04/2024 11:48:11 10/05/2024 16:26:16 Atrial fibrillation 71633036 I48.0 eliquis 2.5 mg bidmonitor for rate control Benign pro static hyperplasia 018252076 N40.1 followed by urology Dementia 65552527 F02.B3 baseline dementia with behaviorsc urrently calmmonito r for behaviorsu pdate psych with concerns Recurrent urinary tract infection 427432279 N30.20 suprapubic cath in placenow on macrobid 100 mg qd with cath change q 3 weeksmonit or for effectcoor dinate with urology [id number] RASHAWN WAGGONER [address] [place] [address] [place] [address] 01/10/2025 05:48:25 01/11/2025 11:05:50 Atrial fibrillation 90691451 I48.0 stablerate controlled continue eliquis 2.5 mg daily- Benign pro static hyperplasia 409132902 N40.1 with suprapubic catheter -continue finasterid e 5 mg daily Dementia 94951661 F02.B3 stableCont inue mirtazapin e 15 mg qdcontinue trazadone 25 mg at for anxiety with agitation Essential hypertension 56182557 I10 stabledilt iazem 120 mg dailymonit or BP Suprapubic urinary catheter in situ 530162403 Z93.59 501812 monitor for sx of site infection update provider with changes.pa tent and drainingab dominal binder to prevent accidental pulling out.change catheter tubing per urology recs.recur rent UTI Hxcont PPX abxmacrobi d 100 [facility] be [facility] 3weeks [id number] MD STANISLAV Munoz [address] [place] [address] [place] [address] 01/18/2025 18:41:55 01/23/2025 10:32:44 Adult failure to thrive syndrome 770352063 R62.7 With marked wt. 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 Psych follows. Chronic re tention of urine 708867421 R33.8 See HPI.Contin ue suprapubic cath with routine changes.F/ U with uro as planned. 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 Atrial fibrillation 4943 6004 I48.0 Had bradycardi a when ill, now back to nl since return to facility.O n no rate controllin g meds.[place] nue eliquis 2.5 mg BID for AC.Monitor HR and bleeding risk. Gastroesop hageal reflux disease without esophagitis 272682592 K21.9 No current sxs.Has been off famotidine since 05/2024 with no ill effects.Mo nitor GI sxs Essential hypertension 17048735 I10 Continues in good control on no meds.Monit or BP and labs. Suprapubic urinary catheter in situ 386753921 Z93.59 640754 As above.Cont inue phenazopyr idine 100 mg TID for bladder spasms and can give 100 mg TID prn for breakthrou gh spasms.Mon itor. Recurrent urinary tract infection 079932212 N39.0 662718 Unclear if recent illness was due to UTI as cx had mixed growth.Con tinue ascorbic acid 500 mg BID, methanamin e 1 gm BID, and nitrofuran toin 100 mg qhs all for UTI prophylaxi s.Monitor for sxs. Acute kidney injury 1466 9001 N17.8 4731107 Likely due to obstructio n and sepsis.Wor [...] ID Guarantor Name 01/10/2025 1 MEDICARE B-[place]: [employer] Joel Aceevdo [id number] Joel Acevedo 01/10/2025 2 [place] [facility] Joel Acevedo [id number] Joel Acevedo Notes Date Note Type Note [...] his room. NN reviewed. RASHAWN WAGGONER [address], [address], [place], [address], [employer] 06/26/2024 13:20:51 10/01/2024 text/html ROS as noted [...] aware or UA results. RASHAWN WAGGONER [address], [address], [place], [address], [employer] [facility] 10/02/2024 09:10:20 10/04/2024 text/html Patient is a 78 yo male resident seen for MD visit. Patient with baseline suprapubic cath with recurrent UTI. Now started on prophylaxis with cath change q 3 weeks. Discussed with nursing. Patient lying in bed in NAD with baseline impaired cognition Rajesh Son MD [address], [address], [place], [address], [employer] [facility] 10/04/2024 11:54:32 01/10/2025 text/html ROS as [...] no acute nursing concerns. RASHAWN WAGGONER [address], [address], [place], [address], [facility] 01/11/2025 18:28:49 01/18/2025 text/html I am seeing [...] It had just been replaced on 01/11. cost manager rerouted him to [facility] due to bradycardia of 40.Ornelas was found [...] of EtOH overuse. Estefanía Witt MD [address], [address], [place], [address], [facility] 01/18/2025 22:41:55
[2025-05-11 23:23] LABS: Appearance Urine Turbid; Glucose Urine UA Negative (Negative); PH 7.5 (5.0-9.0); Specific Gravity - Urine 1.020 (1.005-1.025); UMIC TRIGGER UA YES
== END 2025-05-11 12:58 | disposition home or self-care (01) ==
LOC: HO.MMNH3L 12:57
PROVIDERS: Visit Provider Physician Assistant Medical
DX: F03.C18 Unspecified dementia, severe, with other behavioral disturbance (principal); F05 Delirium due to known physiological condition
CPT/HCPCS: 36415; 80053; 81001; 81003; 84145; 85025; 87086